=== PATIENT | male | born 1980 | race Native Hawaiian/Other Pacific Islander ===

== ENCOUNTER 2021-07-09 17:46 | Emergency (ER) | payer OTHER ==
[~2021-07-09] VITALS: Ht 167 cm; Wt 72.0 kg
--- NOTE | 2021-07-09 18:44 | ED Neurological Problem ---
General Chief Complaint: Neuro-Stroke Like Symptoms Stated Complaint: ALL OVER BODY PAIN Nursing Triage Note: TO ROOM 04 VIA WC. LANGUAGE LINE USED. PT STATES LAST MON AT WORK WHILE MOVING BOXES HE FELL WHEN HIS LEG BECAME WEAK. COMPLAINS OF LEFT ARM AND LEG WEAKNESS SINCE ALONG WITH PAIN. Source: patient Exam Limitations: no limitations History of Present Illness Date Seen by Provider: Jul 09, 2021 Time Seen by Provider: 18:40 Initial Comments this Lebanese speaking gentleman presents to ER by private vehicle accompanied by his with reports of and leg weakness, pain tingling while at work on 07/07/2021. He is not sure why he fell but his leg felt weak. He states that he cannot bear weight on his left leg because it feels weak. His left hand also feels weak intermittently. The symptoms happened once before while in the [facility] in 2010 but went away on its own. No fevers chills or trauma. The pain began before the fall. Timing/Duration: other (48 hours) Severity: moderate Associated Symptoms: confusion Allergies and Home Medications Allergies Coded Allergies: No Known Drug Allergies (Unverified , 07/09/21) Patient Home Medication List Home Medication List Reviewed: Yes Hydrocodone/Acetaminophen (Hydrocodone-Acetamin 5-325 mg) 1 Each Tablet, 1 TAB PO Q4H PRN for PAIN-MODERATE (5-7) Prescribed by: LESLEE MELO on 07/09/212137 Metformin HCl (Metformin HCl) 500 Mg Tablet, 500 MG PO BID Prescribed by: LESLEE MELO on 07/09/212136 Prednisone (Prednisone) 20 Mg Tab, 40 MG PO DAILY Prescribed by: LESLEE MELO on 07/09/212136 Review of Systems Review of Systems Constitutional: see HPI Eyes: No Symptoms Reported Ears, Nose, Mouth, Throat: no symptoms reported Respiratory: no symptoms reported Cardiovascular: no symptoms reported Genitourinary: no symptoms reported Musculoskeletal: no symptoms reported Skin: no symptoms reported Psychiatric/Neurological: See HPI Endocrine: No Symptoms Reported Past Soifmxm-Rktpfq-Uqutki Hx Patient Social History Smoking Status: Never a Smoker Substance use?: No Alcohol Use?: No Immunizations Up To Date Second COVID19 Vaccination Charly: JUN 06 COVID19 Vaccine Manager Linux: UNKNOWN Physical Exam Vital Signs Vital Signs - First Documented 07/09/21 18:20 Temp 36.3 Pulse 86 Resp 16 B/P (MAP) 165/85 (111) Pulse Ox 99 O2 Delivery Room Air Capillary Refill : Less Than 3 Seconds Height, Weight, BMI Height: '" Weight: lbs. oz. kg; 25.00 BMI Method: General Appearance: WD/WN, no apparent distress, other ([employer] Operator are equal there is questionable left arm pronator drift at best. He does seem quite weak when bearing weight on his left leg. Offevs-ag-myjb test reveals no ataxia but question of receptive aphasia has when I tell him to touch his nose and then my finger he does so appropriately with the right arm and when repeating this with the left arm he puts his 2 pointer fingers together as if he does not understand the question. Lebanese language line was utilized to get history and during clinical exam.) HEENT: PERRL/EOMI, normal ENT inspection Respiratory: no respiratory distress, no accessory muscle use Cardiovascular: regular rate, rhythm, no murmur Gastrointestinal: normal bowel sounds, non tender, soft Extremities: normal range of motion, non-tender Neurologic/Psychiatric: alert, normal mood/affect, oriented x 3 Crainal Nerves: normal hearing, normal speech, PERRL Coordination/Gait: normal finger to nose Motor/Sensory: other (Upper extremity steward/stewardess lounge strength equal bilaterally without drift) Skin: normal color, warm/dry There is no hyperreflexia. He is able to extend the legs while sitting on the edge of the bed with resisted flexion and extension at the knee 5 out of 5 bilaterally. However when he attempts to walk he does have a wide stance with ataxic left leg. Progress/Results/Core Measures Results/Orders Lab Results Laboratory Tests Test 07/09/21 18:38 07/09/21 18:46 07/09/21 20:35 07/09/21 22:20 Range/Units White Blood Count 6.6 4.3-11.0 10^3/uL Red Blood Count 4.12 L 4.30-5.52 10^6/uL Hemoglobin 12.3 L 13.3-17.7 g/dL Hematocrit 36 L 40-54 % Mean Corpuscular Volume 87 80-99 fL Mean Corpuscular Hemoglobin 30 25-34 pg Mean Corpuscular Hemoglobin Concent 34 32-36 g/dL Red Cell Distribution Width 12.3 10.0-14.5 % Platelet Count 160 130-400 10^3/uL Mean Platelet Volume 9.4 9.0-12.2 fL Immature Granulocyte % (Auto) 0 % Neutrophils (%) (Auto) 59 42-75 % Lymphocytes (%) (Auto) 24 12-44 % Monocytes (%) (Auto) 6 0-12 % Eosinophils (%) (Auto) 10 0-10 % Basophils (%) (Auto) 1 0-10 % Neutrophils # (Auto) 3.9 1.8-7.8 10^3/uL Lymphocytes # (Auto) 1.6 1.0-4.0 10^3/uL Monocytes # (Auto) 0.4 0.0-1.0 10^3/uL Eosinophils # (Auto) 0.6 H 0.0-0.3 10^3/uL Basophils # (Auto) 0.0 0.0-0.1 10^3/uL Immature Granulocyte # (Auto) 0.0 0.0-0.1 10^3/uL Prothrombin Time 13.2 12.2-14.7 SEC INR Comment 1.0 0.8-1.4 Activated Partial Thromboplast Time 30 24-35 SEC D-Dimer <= 0.27 0.00-0.49 UG/ML Sodium Level 136 135-145 MMOL/L Potassium Level 3.9 3.6-5.0 MMOL/L Chloride Level 105 98-107 MMOL/L Carbon Dioxide Level 22 21-32 MMOL/L Anion Gap 9 5-14 MMOL/L Blood Urea Nitrogen 26 H 7-18 MG/DL Creatinine 1.13 0.60-1.30 MG/DL Estimat Glomerular Filtration Rate 71 BUN/Creatinine Ratio 23 Glucose Level 334 H 70-105 MG/DL Calcium Level 8.6 8.5-10.1 MG/DL Corrected Calcium 9.5 8.5-10.1 MG/DL Total Bilirubin 0.4 0.1-1.0 MG/DL Aspartate Amino Transf (AST/SGOT) 14 5-34 U/L Alanine Aminotransferase (ALT/SGPT) 21 0-55 U/L Alkaline Phosphatase 73 40-136 U/L Troponin I < 0.028 <0.028 NG/ML Total Protein 6.0 L 6.4-8.2 GM/DL Albumin 2.9 L 3.2-4.5 GM/DL Serum Alcohol < 10 <10 MG/DL Glucometer 291 H 70-110 MG/DL Urine Color YELLOW Urine Clarity CLEAR Urine pH 6.0 5-9 Urine Specific [place] 1.020 1.016-1.022 Urine Protein 2+ H NEGATIVE Urine Glucose (UA) 3+ H NEGATIVE Urine Ketones NEGATIVE NEGATIVE Urine Nitrite NEGATIVE NEGATIVE Urine Bilirubin NEGATIVE NEGATIVE Urine Urobilinogen 0.2 < = 1.0 MG/DL Urine Leukocyte Esterase NEGATIVE NEGATIVE Urine RBC (Auto) 1+ H NEGATIVE Urine RBC 2-5 H /HPF Urine WBC 0-2 /HPF Urine Crystals PRESENT H /LPF Urine Amorphous Sediment RARE KATHIE URATES H /LPF Urine Bacteria TRACE /HPF Urine Casts NONE /LPF Urine Mucus NEGATIVE /LPF Urine Culture Indicated NO Urine Opiates Screen NEGATIVE NEGATIVE Urine Oxycodone Screen NEGATIVE NEGATIVE Urine Methadone Screen NEGATIVE NEGATIVE Urine Propoxyphene Screen NEGATIVE NEGATIVE Urine Barbiturates Screen NEGATIVE NEGATIVE Ur Tricyclic Antidepressants Screen NEGATIVE NEGATIVE Urine Phencyclidine Screen NEGATIVE NEGATIVE Urine Amphetamines Screen NEGATIVE NEGATIVE Urine Methamphetamines Screen NEGATIVE NEGATIVE Urine Benzodiazepines Screen NEGATIVE NEGATIVE Urine Cocaine Screen NEGATIVE NEGATIVE Urine Cannabinoids Screen NEGATIVE NEGATIVE My Orders Orders - LESLEE MELO APRN Cbc With Automated Diff (07/09/21 18:38) Protime With Inr (07/09/21 18:38) Partial Thromboplastin Time (07/09/21 18:38) Comprehensive Metabolic Panel (07/09/21 18:38) Fibrin Degradation Products (07/09/21 18:38) Troponin I Kayleigh (07/09/21 18:38) Ua Culture If Indicated (07/09/21 18:38) Chest 1 View, Ap/Pa Only (07/09/21 18:38) Ekg Tracing (07/09/21 18:38) Accucheck Stat ONCE (07/09/21 18:38) Ed Iv/Invasive Line Start (07/09/21 18:38) Ed Iv/Invasive Line Start (07/09/21 18:38) Vital Signs Stroke Patient Q15M (07/09/21 18:38) O2 (07/09/21 18:38) Intake & Output 06,14,22 (07/09/21 18:38) Monitor-Rhythm Ecg Trace Only (07/09/21 18:38) Dysphagia Screening Tool (07/09/21 18:38) Post Thrombolytic Adminstratio (07/09/21 18:38) Lipid Panel (07/10/21 06:00) Ct Angio Head/Neck (07/09/21 18:38) Drug Screen Stat (Urine) (07/09/21 18:38) Alcohol (07/09/21 18:38) Iohexol Injection (Omnipaque 350 Mg/Ml 1 (07/09/21 19:15) Received Contrast (Hold Metformin- Contr (07/09/21 19:15) Ns (Ivpb) (Sodium Chloride 0.9% Ivpb Bag (07/09/21 19:15) Ketorolac Injection (Toradol Injection) (07/09/21 20:00) Pelvis With Left Hip 2-3 Views (07/09/21 19:58) Lumbar Spine - 2-3 Views (07/09/21 19:58) Rx-Hydrocodone/Apap 5-325 Mg (Rx-Vicodin (07/09/21 21:15) Fentanyl Inj (Sublimaze Injection) (07/09/21 21:15) Ct Lumbar Spine Wo (07/09/21 21:11) Covid 19 Inhouse Test (07/09/21 22:18) Medications Given in ED Current Medications Medications Dose Ordered Sig/Gardenia Route Start Time Stop Time Status Last Admin Dose Admin Fentanyl Citrate 50 mcg ONCE ONCE IVP 07/09/21 21:15 07/09/21 21:16 DC 07/09/21 21:17 50 MCG Iohexol 100 ml ONCE ONCE IV 07/09/21 19:15 07/09/21 19:16 DC 07/09/21 19:27 75 ML Ketorolac Tromethamine 15 mg ONCE ONCE IVP 07/09/21 20:00 07/09/21 20:01 DC 07/09/21 20:26 15 MG Sodium Chloride 100 ml ONCE ONCE IV 07/09/21 19:15 07/09/21 19:16 DC 07/09/21 19:27 80 ML Vital Signs/I&O 07/09/21 18:20 Temp 36.3 Pulse 86 Resp 16 B/P (MAP) 165/85 (111) Pulse Ox 99 O2 Delivery Room Air Blood Pressure Mean: 111 Departure Communication (Admissions) 2111-after further discussion using the language line it seems that his low back may be the cause of this leg pain. He states this began on Monday and the pain preceded the weakness. He has a strong dorsalis pedis pulse on the left. The leg is warm. Flexion of the leg makes the pain worse. Will get a CT lumbar s pine and treat for lumbar radiculopathy. Sometimes the pain radiates to his abdomen. Twisting makes the pain worse. 2147-I discussed the CT findings with him of severe spinal stenosis. He does report that sometimes he has numbness between his legs of the genitals. His bladder looks very distended on CT and he has a mild urge to urinate. We will have him urinate and then get a post void residual. I think he needs to be sent to [place] since MRIs not available here to evaluate for a cauda equina syndrome. He voided 325 mL and then we did a post void bladder scan showing a residual 300 mL. I spoke with [facility] transfer center and [facility]. They can take the patient to ER to complete the MRI but if it is positive and need for surgical intervention they would not be able to help and would have to again transfer the patient. As such I spoke with [facility] and there is a facility at [facility] available. Waiting for hospitalist to call me back. 2257-spoke to Dr. Limon from the transfer line at [facility] on the [place]. Accepts the patient for transfer to the ER. Family Conversation NAME: JAMES ROMERO [facility] REC#: [id number] PT STATUS: REG ER : 1980 PHYSICIAN: LESLEE MELO APRN ADMIT DATE: 07/09/21/ER Draft Date of Exam:07/09/21 CT ANGIO HEAD/NECK PROCEDURE: CT angiography of the head and CT angiography of the neck with and without contrast. TECHNIQUE: Contiguous noncontrast images were obtained from the skull base through the vertex. After intravenous contrast administration, helical CT angiography of the neck was performed. Source data was reformatted into 3D MIP projections. Delayed post contrast acquisition was also obtained. Auto Exposure Controls were utilized during the CT exam to meet ALARA standards for radiation dose reduction. DATE: July 09, 2021. INDICATION: 40-year-old male, left leg and arm weakness. Evaluation for stroke. COMPARISON: None. FINDINGS: There is increased attenuation in the region of the left parietal scalp which may reflect soft tissue contusion or hematoma. Recommend correlation. There is no identified skull fracture. The frontal sinuses are hypoplastic. The additional visualized portions of the paranasal sinuses, mastoid air cells and middle ears are well aerated. The ventricles and additional CSF spaces are normal in size and configuration for patient age. There is no identified abnormal extra-axial fluid collection. There is no evidence of acute intracranial hemorrhage. There is no mass effect or midline shift. There is no identified abnormal intracranial enhancement. The left common carotid artery is patent. The left internal carotid artery is patent. There is calcified plaque at the level of the cavernous segment of the left internal carotid artery. The left middle cerebral artery is patent. The left anterior cerebral artery is patent. The right anterior cerebral artery is patent. The right middle cerebral artery is patent. The right internal carotid artery is patent. There is minimal calcified plaque at the level of the proximal aspect of the right internal carotid artery. The right common carotid artery is patent. There is conventional origin of the left vertebral artery. The left vertebral artery is patent. The right and left posterior inferior cerebellar arteries are patent. The right and left posterior cerebral arteries are patent. The right vertebral artery is patent and conventional in origin. Visualized portions of the lungs are clear. There is no identified acute bony abnormality. IMPRESSION: 1. No identified acute intracranial abnormality. 2. Patent arterial head and neck vasculature without high-grade stenosis, occlusion, aneurysm or dissection. 3. Mild atherosclerotic disease is noted. Dictated on workstation # [id number] Dict: 07/09/211941 Trans: 07/09/211952 [facility] [id number] Interpreted by: JEFFREY HERMOSILLO MD Electronically signed by: NAME: JAMES ROMERO REC#: [id number] PT STATUS: REG ER : 1980 PHYSICIAN: LESLEE MELO APRN ADMIT DATE: 07/09/21/ER Signed Date of Exam:07/09/21 CHEST 1 VIEW, AP/PA ONLY EXAMINATION: Chest radiograph, portable AP view. DATE: 07/09/2021 7:55 PM. INDICATION: 40-year-old male, left-sided weakness. COMPARISON: None. FINDINGS: Heart size and mediastinal contours are unremarkable. There is no identified pneumothorax. There is no large pleural effusion. There is no identified focal airspace consolidation. IMPRESSION: No identified acute cardiopulmonary abnormality. Dictated by: Dictated on workstation # [id number] Dict: 07/09/211955 Trans: 07/09/212002 [facility] [id number] Interpreted by: JEFFREY HERMOSILLO MD Electronically signed by: JEFFREY HERMOSILLO MD 07/09/212002 NAME: [facility] [facility] REC#: [id number] PT STATUS: REG ER : 1980 PHYSICIAN: LESLEE MELO APRN ADMIT DATE: 07/09/21/ER Signed Date of Exam:07/09/21 PELVIS WITH LEFT HIP 2-3 VIEWS EXAMINATION: Pelvis, single view. Left hip, 2 views. COMPARISON: None. HISTORY: 40-year-old male, leg weakness. FINDINGS: The pubic symphysis and sacroiliac joints are normally aligned. The hips are not obviously dislocated. There is lack of normal concavity of both femoral head neck junctions which is a morphologic feature which can be associated with cam-type femoral acetabular impingement which would be a clinical diagnosis. There is no identified acute fracture. The joint spaces of both hips are well preserved. There is no osteophyte formation or subchondral cystic change. IMPRESSION: 1. No acute bony abnormality of the pelvis or left hip. 2. Lack of normal concavity of both femoral head neck junctions which is a morphologic feature which can be associated with cam-type femoral acetabular impingement which would be a clinical diagnosis. No evidence of arthritis of either hip. Dictated by: Dictated on workstation # [id number] Dict: 07/09/212022 Trans: 07/09/212034 [facility] [id number] Interpreted by: JEFFREY HERMOSILLO MD Electronically signed by: JEFFREY HERMOSILLO MD 07/09/212034 NAME: [facility] REC#: [id number] PT STATUS: REG ER : 1980 PHYSICIAN: LESLEE MELO APRN ADMIT DATE: 07/09/21/ER Draft Date of Exam:07/09/21 CT LUMBAR SPINE WO PROCEDURE: CT lumbar spine without contrast. TECHNIQUE: Multiple contiguous axial images were obtained through the lumbar spine without the use of intravenous contrast. Sagittal and coronal reformations were then performed. Auto Exposure Controls were utilized during the CT exam to meet ALARA standards for radiation dose reduction. DATE: July 09, 2021. INDICATION: 40-year-old male, left leg weakness and pain. COMPARISON: Lumbar spine radiographs July 09, 2021. FINDINGS: There are multilevel mild endplate degenerative changes of the thoracolumbar spine with relatively well preserved disc heights. CT is limited for assessment of disc pathology as well as additional non-bony causes of pathology in the spinal canal. There is a large diffuse disc bulge present at L3-L4. The facet joints are unremarkable. There appears to be severe spinal stenosis and moderate to severe bilateral foraminal narrowing. There is also a large diffuse disc bulge at L4-L5 with suspected severe spinal stenosis and moderate to severe bilateral foraminal narrowing. There is no identified acute fracture of the lumbar spine. There is contrast in the urinary collecting systems relating to prior administration of contrast. IMPRESSION: 1. Large diffuse disc bulges at L3-L4 and L4-L5 with suspected severe spinal stenosis and moderate to severe bilateral foraminal narrowing at both levels. 2. No identified acute fracture of the lumbar spine. Dictated on workstation # [id number] Dict: 07/09/212131 Trans: 07/09/212135 [facility] [id number] Interpreted by: JEFFREY HERMOSILLO MD Electronically signed by: His EKG shows sinus rhythm at 71. He denies chest pain, there is some ST elevation in lead II but no other leads and no reciprocal depression. Impression Primary Impression: Cauda equina syndrome Additional Impression: Diabetes Disposition: XFER SHT-TRM HOSP Condition: Stable Transfer Transfer Reason: Exceeds level of care Time Spoke to Accepting Phy: 21:49 Departure-Patient Inst. Decision time for Depature: 21:13 Referrals: GRIFFIN AVALOS BRIAN J MD NO,LOCAL PHYSICIAN (PCP) Primary Care Physician Patient Instructions: Radiculopathy Scripts Hydrocodone/Acetaminophen (Hydrocodone-Acetamin 5-325 mg) 1 Each Tablet 1 TAB PO Q4H PRN for PAIN-MODERATE (5-7), #10 TAB Prov: LESLEE MELO APRN 07/09/21 Prednisone (Prednisone) 20 Mg Tab 40 MG PO DAILY, #6 TAB 0 Refills Prov: LESLEE MELO APRN 07/09/21 Metformin HCl (Metformin HCl) 500 Mg Tablet 500 MG PO BID, #60 TAB Prov: LESLEE MELO APRN 07/09/21 Work/School Note: Work Release Form Date Seen in the Emergency Department: Jul 09, 2021 Return to Work: Jul 12, 2021 LESLEE MELO APRN Jul 09, 2021 18:44
[2021-07-09 18:45] LABS: BASOPHILS % (AUTO) 1 % (0-10); EOSINOPHILS # (AUTO) 0.6 10^3/uL (0.0-0.3); EOSINOPHILS % (AUTO) 10 % (0-10); HEMATOCRIT 36 % (40-54); HEMOGLOBIN 12.3 g/dL (13.3-17.7); LYMPHOCYTES # (AUTO) 1.6 10^3/uL (1.0-4.0); LYMPHOCYTES % (AUTO) 24 % (12-44); MEAN CORPUSCULAR HEMOGLOBIN 30 pg (25-34); MEAN CORPUSCULAR HGB CONC 34 g/dL (32-36); MEAN CORPUSCULAR VOLUME 87 fL (80-99); MEAN PLATELET VOLUME 9.4 fL (9.0-12.2); MONOCYTES # (AUTO) 0.4 10^3/uL (0.0-1.0); MONOCYTES % (AUTO) 6 % (0-12); NEUTROPHILS # (AUTO) 3.9 10^3/uL (1.8-7.8); NEUTROPHILS % (AUTO) 59 % (42-75); PLATELET COUNT 160 10^3/uL (130-400); WHITE BLOOD COUNT 6.6 10^3/uL (4.3-11.0)
[2021-07-09 19:01] LABS: FIBRIN DEGRADATION PRODUCTS <= 0.27 UG/ML (0.00-0.49); PARTIAL THROMBOPLASTIN TIME 30 SEC (24-35); PROTHROMBIN TIME PATIENT 13.2 SEC (12.2-14.7)
[2021-07-09 19:04] LABS: ALANINE AMINOTRANSFERASE 21 U/L (0-55); ALBUMIN 2.9 GM/DL (3.2-4.5); ALKALINE PHOSPHATASE 73 U/L (40-136); BILIRUBIN,TOTAL 0.4 MG/DL (0.1-1.0); BUN/CREATININE RATIO 23; CALCIUM 8.6 MG/DL (8.5-10.1); CARBON DIOXIDE 22 MMOL/L (21-32); CHLORIDE 105 MMOL/L (98-107); CREATININE SERUM 1.13 MG/DL (0.60-1.30); GFR ESTIMATED 71; GLUCOSE 334 MG/DL (70-105); POTASSIUM 3.9 MMOL/L (3.6-5.0); SODIUM 136 MMOL/L (135-145)
[2021-07-09] MEDS ORDERED: IOHEXOL 350 MG/ML 100 ML (OMNIPAQUE 350) VIAL IV ONE (19:15)
[2021-07-09] MEDS ORDERED: HOLD METFORMIN - RECEIVED CONTRAST 20 ML VIAL IV SCH (19:15)
[2021-07-09] MEDS ORDERED: NS 100 ML (IVPB) BAG IV ONE (19:15)
--- NOTE | 2021-07-09 19:55 | Diagnostic Imaging Report ---
PROCEDURE: CT angiography of the head and CT angiography of the neck with and without contrast. TECHNIQUE: Contiguous noncontrast images were obtained from the skull base through the vertex. After intravenous contrast administration, helical CT angiography of the neck was performed. Source data was reformatted into 3D MIP projections. Delayed post contrast acquisition was also obtained. Auto Exposure Controls were utilized during the CT exam to meet ALARA standards for radiation dose reduction. DATE: July 09, 2021. INDICATION: 40-year-old male, left leg and arm weakness. Evaluation for stroke. COMPARISON: None. FINDINGS: There is increased attenuation in the region of the left parietal scalp which may reflect soft tissue contusion or hematoma. Recommend correlation. There is no identified skull fracture. The frontal sinuses are hypoplastic. The additional visualized portions of the paranasal sinuses, mastoid air cells and middle ears are well aerated. The ventricles and additional CSF spaces are normal in size and configuration for patient age. There is no identified abnormal extra-axial fluid collection. There is no evidence of acute intracranial hemorrhage. There is no mass effect or midline shift. There is no identified abnormal intracranial enhancement. The left common carotid artery is patent. The left internal carotid artery is patent. There is calcified plaque at the level of the cavernous segment of the left internal carotid artery. The left middle cerebral artery is patent. The left anterior cerebral artery is patent. The right anterior cerebral artery is patent. The right middle cerebral artery is patent. The right internal carotid artery is patent. There is minimal calcified plaque at the level of the proximal aspect of the right internal carotid artery. The right common carotid artery is patent. There is conventional origin of the left vertebral artery. The left vertebral artery is patent. The right and left posterior inferior cerebellar arteries are patent. The right and left posterior cerebral arteries are patent. The right vertebral artery is patent and conventional in origin. Visualized portions of the lungs are clear. There is no identified acute bony abnormality. IMPRESSION: 1. No identified acute intracranial abnormality. 2. Patent arterial head and neck vasculature without high-grade stenosis, occlusion, aneurysm or dissection. 3. Mild atherosclerotic disease is noted. 4. High attenuation in the region of the left parietal scalp most likely reflecting soft tissue contusion or hematoma. Recommend correlation. Dictated by: Dictated on workstation # [id number]
--- NOTE | 2021-07-09 19:59 | Diagnostic Imaging Report ---
EXAMINATION: Chest radiograph, portable AP view. DATE: 07/09/2021 7:55 PM. INDICATION: 40-year-old male, left-sided weakness. COMPARISON: None. FINDINGS: Heart size and mediastinal contours are unremarkable. There is no identified pneumothorax. There is no large pleural effusion. There is no identified focal airspace consolidation. IMPRESSION: No identified acute cardiopulmonary abnormality. Dictated by: Dictated on workstation # [id number]
[2021-07-09] MEDS ORDERED: KETOROLAC 30 MG/ML VIAL IVP ONE (20:00)
--- NOTE | 2021-07-09 20:27 | Diagnostic Imaging Report ---
EXAMINATION: Pelvis, single view. Left hip, 2 views. COMPARISON: None. HISTORY: 40-year-old male, leg weakness. FINDINGS: The pubic symphysis and sacroiliac joints are normally aligned. The hips are not obviously dislocated. There is lack of normal concavity of both femoral head neck junctions which is a morphologic feature which can be associated with cam-type femoral acetabular impingement which would be a clinical diagnosis. There is no identified acute fracture. The joint spaces of both hips are well preserved. There is no osteophyte formation or subchondral cystic change. IMPRESSION: 1. No acute bony abnormality of the pelvis or left hip. 2. Lack of normal concavity of both femoral head neck junctions which is a morphologic feature which can be associated with cam-type femoral acetabular impingement which would be a clinical diagnosis. No evidence of arthritis of either hip. Dictated by: Dictated on workstation # [id number]
--- NOTE | 2021-07-09 20:27 | Diagnostic Imaging Report ---
EXAMINATION: Lumbar spine radiographs, 3 views. COMPARISON: None. HISTORY: 40-year-old male, leg weakness. FINDINGS: There are five lumbar-type vertebral bodies. There is no identified compression deformity or fracture. There are multilevel endplate degenerative related changes. The disc heights are fairly well preserved. The facet joints are unremarkable. There is contrast in the urinary collecting systems likely relating to prior administration of contrast. IMPRESSION: Multilevel mild disc degenerative changes of the lumbar spine. Dictated by: Dictated on workstation # [id number]
[2021-07-09 20:37] LABS: BILIRUBIN,URINE NEGATIVE (NEGATIVE); CLARITY,URINE CLEAR; COLOR,URINE YELLOW; GLUCOSE, URINE (UA) 3+ (NEGATIVE); KETONES,URINE NEGATIVE (NEGATIVE); LEUKOCYTE ESTERASE ,URINE NEGATIVE (NEGATIVE); NITRITE,URINE NEGATIVE (NEGATIVE); PROTEIN,URINE 2+ (NEGATIVE)
[2021-07-09 20:45] LABS: AMORPHOUS SEDIMENT,UR RARE AMOR URATES /LPF; BACTERIA,URINE TRACE /HPF; WBC,URINE 0-2 /HPF
[2021-07-09 20:55] LABS: AMPHETAMINE SCREEN, URINE NEGATIVE (NEGATIVE); BARBITURATE SCREEN URINE NEGATIVE (NEGATIVE); BENZODIAZEPINES SCREEN URINE NEGATIVE (NEGATIVE); CANNABINOID SCREEN, URINE NEGATIVE (NEGATIVE); COCAINE SCREEN URINE NEGATIVE (NEGATIVE); METHADONE STAT NEGATIVE (NEGATIVE); METHAMPHETAMINE SCREEN URINE S NEGATIVE (NEGATIVE); OPIATE SCREEN URINE NEGATIVE (NEGATIVE); OXYCODONE STAT NEGATIVE (NEGATIVE); PROPOXYPHENE STAT NEGATIVE (NEGATIVE); TRICYCLIC ANTIDEPRESSANTS SCRE NEGATIVE (NEGATIVE)
[2021-07-09] MEDS ORDERED: fentaNYL INJ 100 MCG/2 ML AMP IVP ONE (21:15)
--- NOTE | 2021-07-09 21:36 | Diagnostic Imaging Report ---
PROCEDURE: CT lumbar spine without contrast. TECHNIQUE: Multiple contiguous axial images were obtained through the lumbar spine without the use of intravenous contrast. Sagittal and coronal reformations were then performed. Auto Exposure Controls were utilized during the CT exam to meet ALARA standards for radiation dose reduction. DATE: July 09, 2021. INDICATION: 40-year-old male, left leg weakness and pain. COMPARISON: Lumbar spine radiographs July 09, 2021. FINDINGS: There are multilevel mild endplate degenerative changes of the thoracolumbar spine with relatively well preserved disc heights. CT is limited for assessment of disc pathology as well as additional non-bony causes of pathology in the spinal canal. There is a large diffuse disc bulge present at L3-L4. The facet joints are unremarkable. There appears to be severe spinal stenosis and moderate to severe bilateral foraminal narrowing. There is also a large diffuse disc bulge at L4-L5 with suspected severe spinal stenosis and moderate to severe bilateral foraminal narrowing. There is no identified acute fracture of the lumbar spine. There is contrast in the urinary collecting systems relating to prior administration of contrast. IMPRESSION: 1. Large diffuse disc bulges at L3-L4 and L4-L5 with suspected severe spinal stenosis and moderate to severe bilateral foraminal narrowing at both levels. 2. No identified acute fracture of the lumbar spine. Dictated by: Dictated on workstation # [id number]
[2021-07-09] MEDS ORDERED: ACHD5005 PO (21:37)
[2021-07-09] MEDS ORDERED: METF-397 PO (21:37)
[2021-07-09] MEDS ORDERED: PRD20T PO (21:37)
[2021-07-10 00:25] VITALS: BP 173/90
== END 2021-07-10 00:25 | disposition short-term general hospital (02) ==
LOC: ER 17:53
DX: G83.4 Cauda equina syndrome (principal); E11.9 Type 2 diabetes mellitus without complications; Z79.84 Long term (current) use of oral hypoglycemic drugs; Z20.822 Contact with and (suspected) exposure to COVID-19
CPT/HCPCS: 70496; 70498; 71045; 72100; 72131; 73502; 80053; 80306; 81000; 82947; 84484; 85025; 85379; 85610; 85730; 87636; 99284; G0480; 36415; 80320; 93005

== ENCOUNTER 2021-08-27 12:02 | Observation (INO) | payer SELFPAY ==
[~2021-08-27] VITALS: Ht 170.2 cm; Wt 79.0 kg
[~2021-08-27 12:02] MED LIST: ACHD5005 PO; METF-397 PO; PRD20T PO
[2021-08-27 12:37] LABS: BASOPHILS # (AUTO) 0.1 10^3/uL (0.0-0.1); BASOPHILS % (AUTO) 1 % (0-10); EOSINOPHILS # (AUTO) 0.9 10^3/uL (0.0-0.3); EOSINOPHILS % (AUTO) 10 % (0-10); HEMATOCRIT 36 % (40-54); HEMOGLOBIN 12.7 g/dL (13.3-17.7); LYMPHOCYTES # (AUTO) 1.8 10^3/uL (1.0-4.0); LYMPHOCYTES % (AUTO) 21 % (12-44); MEAN CORPUSCULAR HEMOGLOBIN 30 pg (25-34); MEAN CORPUSCULAR HGB CONC 35 g/dL (32-36); MEAN CORPUSCULAR VOLUME 84 fL (80-99); MEAN PLATELET VOLUME 9.8 fL (9.0-12.2); MONOCYTES # (AUTO) 0.4 10^3/uL (0.0-1.0); MONOCYTES % (AUTO) 4 % (0-12); NEUTROPHILS # (AUTO) 5.7 10^3/uL (1.8-7.8); NEUTROPHILS % (AUTO) 64 % (42-75); PLATELET COUNT 178 10^3/uL (130-400); WHITE BLOOD COUNT 8.8 10^3/uL (4.3-11.0)
[2021-08-27 12:51] LABS: ALBUMIN 3.1 GM/DL (3.2-4.5)
[2021-08-27 12:52] LABS: CHLORIDE 100 MMOL/L (98-107); SODIUM 134 MMOL/L (135-145)
[2021-08-27 12:53] LABS: CALCIUM 8.7 MG/DL (8.5-10.1)
[2021-08-27 12:54] LABS: GLUCOSE 389 MG/DL (70-105); TOTAL PROTEIN 6.5 GM/DL (6.4-8.2)
[2021-08-27 12:55] LABS: CARBON DIOXIDE 25 MMOL/L (21-32)
[2021-08-27 12:56] LABS: BILIRUBIN,TOTAL 0.4 MG/DL (0.1-1.0)
[2021-08-27 12:57] LABS: ALKALINE PHOSPHATASE 92 U/L (40-136); CREATININE SERUM 1.55 MG/DL (0.60-1.30); GFR ESTIMATED 57
[2021-08-27 12:58] LABS: BUN/CREATININE RATIO 13
--- NOTE | 2021-08-27 12:58 | ED Neurological Problem ---
General Stated Complaint: RIB PAIN Source: patient, EMS Exam Limitations: language barrier ([place] park interpreter on the language line used) History of Present Illness Date Seen by Provider: Aug 27, 2021 Time Seen by Provider: 12:16 Initial Comments Patient to the ER by EMS from home with chief complaint that about 1:00 in the morning had a fall landing on his left side bumped the left side of his head and having pain now in his left hip and knee. Is also having numbness and tingling and weakness on the left side of his arm elbow and hip. No prior surgeries to the joints involved. 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 He uses a walker to get around. He has hypertension and diabetes. Blood glucose was in the 300s. He said he was unable to bear any weight and the family try to get him up but he refused so he laid in the floor all night. EMS stated when they got him up he was not able to bear any weight. No nausea vomiting fevers chills cough shortness of air diarrhea or constipation. He has a history of high-grade spinal stenosis. Worked up in the past for cauda equina syndrome and transferred out. Allergies and Home Medications Allergies Coded Allergies: No Known Drug Allergies (Unverified , 07/09/21) Patient Home Medication List Home Medication List Reviewed: Yes Hydrocodone/Acetaminophen (Hydrocodone-Acetamin 5-325 mg) 1 Each Tablet, 1 TAB PO Q4H PRN for PAIN-MODERATE (5-7) Prescribed by: LESLEE MELO on 07/09/212137 Metformin HCl (Metformin HCl) 500 Mg Tablet, 500 MG PO BID Prescribed by: LESLEE MELO on 07/09/212136 Prednisone (Prednisone) 20 Mg Tab, 40 MG PO DAILY Prescribed by: LESLEE MELO on 07/09/212136 Review of Systems Review of Systems Constitutional: No chills, No diaphoresis Eyes: Denies Blindness, Denies Blurred Vision Ears, Nose, Mouth, Throat: denies ear pain, denies ear discharge Respiratory: No cough, No short of breath Cardiovascular: No edema, No palpitations Gastrointestinal: No abdominal pain, No constipation, No diarrhea, No dysphagia Genitourinary: No discharge, No dysuria Musculoskeletal: see HPI, back pain, joint pain Past Sgoyjyy-Fenoaa-Jrviap Hx Patient Social History Tobacco Use?: No Use of E-Cig and/or Vaping dev: No Substance use?: No Alcohol Use?: No Immunizations Up To Date Second COVID19 Vaccination Charly: JUN 06 Physical Exam Vital Signs Vital Signs - First Documented 08/27/21 12:09 Temp 36.0 Pulse 67 Resp 20 B/P (MAP) 122/76 (91) Pulse Ox 99 O2 Delivery Room Air Capillary Refill : Height, Weight, BMI Height: '" Weight: lbs. oz. 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, alert, normal mood/affect, oriented x 3, other (Paresthesias left upper and lower extremity with weakness as described on the stroke NIH, left side lower extremity) Crainal Nerves: normal hearing, normal speech, PERRL Coordination/Gait: normal finger to nose Motor/Sensory: no sensory deficit, pronator drift (L) (Lower extremity), weak motor strength LLE Skin: normal color, warm/dry Stroke Onset of Symptoms Date of Onset of Symptoms: Aug 27, 2021 Time of Symptom Onset: 01:00 Onset of Symptoms: Yes NIH Stroke Scale Assessment Select: Initial Level of Consciousness: 0=Alert (0), Level of Consciousness- Questions: 0=Answers both month/age (0), LOC Commands: 0=Performs both tasks (0), Gaze: Normal (0), Visual [place]on: 0=No visual loss (0), Facial Movement (Facial Paresis): 0=Normal symmetrical mnt (0), Motor Function-Arms Right: 0=No drift (0), Motor Function-Arms Left: 0=No drift (0), Motor Function-Legs Right: 1=Drift (1), Motor Function-Legs Left: 2=Some effort/gravity (2), Limb Ataxia: 0=Absent (0), Sensory: 0=Normal:no loss (0), Best Language: 0=No aphasia (0), Dysarthria: 0=Normal (0), Extinction & Inattention: 0=No abnormality (0), Total: 3 Stroke Thrombolytic Exclusion Age 18 or Over: Yes Acute intenal hemorrhage: No History of CVA: Yes Uncontrolled Coagulation Defec: No Intracranial Hemorrhage: No Severe Hypertension: No GI or Bleed: No Subarachnoid Hemorrhage: No Intracranial Neoplasm/Aneurysm: No Oral Anticoagulants: No Surgery or Trauma: No Puncture of Non-Compressible V: No Recent CPR: No Diabetic Hemorrhagic Retinopat: No Organ Biopsy: No Recent Obstetric Delivery: No Glucose: No (300s) Significant Hepatic Dysfunctio: No NIH Stoke Scale >22: No Bacterial Endocarditis: No Pericarditis: No Improving Symptoms: No Platelets: No TPA Contraindication: No IV - TPa Received IV - TPa Procedure Performed?: No (Outside the window and benefits do not outweigh the risks.) Progress/Results/Core Measures Results/Orders Lab Results Laboratory Tests Test 08/27/21 12:22 08/27/21 12:30 08/27/21 15:31 Range/Units Glucometer 367 H 304 H 70-110 MG/DL White Blood Count 8.8 4.3-11.0 10^3/uL Red Blood Count 4.29 L 4.30-5.52 10^6/uL Hemoglobin 12.7 L 13.3-17.7 g/dL Hematocrit 36 L 40-54 % Mean Corpuscular Volume 84 80-99 fL Mean Corpuscular Hemoglobin 30 25-34 pg Mean Corpuscular Hemoglobin Concent 35 32-36 g/dL Red Cell Distribution Width 11.9 10.0-14.5 % Platelet Count 178 130-400 10^3/uL Mean Platelet Volume 9.8 9.0-12.2 fL Immature Granulocyte % (Auto) 1 % Neutrophils (%) (Auto) 64 42-75 % Lymphocytes (%) (Auto) 21 12-44 % Monocytes (%) (Auto) 4 0-12 % Eosinophils (%) (Auto) 10 0-10 % Basophils (%) (Auto) 1 0-10 % Neutrophils # (Auto) 5.7 1.8-7.8 10^3/uL Lymphocytes # (Auto) 1.8 1.0-4.0 10^3/uL Monocytes # (Auto) 0.4 0.0-1.0 10^3/uL Eosinophils # (Auto) 0.9 H 0.0-0.3 10^3/uL Basophils # (Auto) 0.1 0.0-0.1 10^3/uL Immature Granulocyte # (Auto) 0.0 0.0-0.1 10^3/uL Prothrombin Time 12.7 12.2-14.7 SEC INR Comment 0.9 0.8-1.4 Activated Partial Thromboplast Time 30 24-35 SEC D-Dimer <= 0.27 0.00-0.49 UG/ML Sodium Level 134 L 135-145 MMOL/L Potassium Level 4.0 3.6-5.0 MMOL/L Chloride Level 100 98-107 MMOL/L Carbon Dioxide Level 25 21-32 MMOL/L Anion Gap 9 5-14 MMOL/L Blood Urea Nitrogen 20 H 7-18 MG/DL Creatinine 1.55 H 0.60-1.30 MG/DL Estimat Glomerular Filtration Rate 57 BUN/Creatinine Ratio 13 Glucose Level 389 H 70-105 MG/DL Calcium Level 8.7 8.5-10.1 MG/DL Corrected Calcium 9.4 8.5-10.1 MG/DL Total Bilirubin 0.4 0.1-1.0 MG/DL Aspartate Amino Transf (AST/SGOT) 14 5-34 U/L Alanine Aminotransferase (ALT/SGPT) 16 0-55 U/L Alkaline Phosphatase 92 40-136 U/L Total Creatine Kinase 140 30-200 U/L Troponin I < 0.028 <0.028 NG/ML Total Protein 6.5 6.4-8.2 GM/DL Albumin 3.1 L 3.2-4.5 GM/DL My Orders Orders - AMARILIS HAAS Cbc With Automated Diff (08/27/21 12:24) Protime With Inr (08/27/21 12:24) Partial Thromboplastin Time (08/27/21 12:24) Comprehensive Metabolic Panel (08/27/21 12:24) Fibrin Degradation Products (08/27/21 12:24) Troponin I Kayleigh (08/27/21 12:24) Ua Culture If Indicated (08/27/21 12:24) Catheter(Urinary) Insert & Ass 03,15 (08/27/21 12:24) Ekg Tracing (08/27/21 12:24) Nothing By Mouth (08/27/21 Lunch) Accucheck Stat ONCE (08/27/21 12:24) Ed Iv/Invasive Line Start (08/27/21 12:24) Ed Iv/Invasive Line Start (08/27/21 12:24) Vital Signs Stroke Patient Q15M (08/27/21 12:24) Ct Head Wo-R/O Stroke (08/27/21 12:24) O2 (08/27/21 12:24) Intake & Output 06,14,22 (08/27/21 12:24) Monitor-Rhythm Ecg Trace Only (08/27/21 12:24) Dysphagia Screening Tool (08/27/21 12:24) Lipid Panel (08/28/21 06:00) Insulin (Regular) Human (Novolin R (Per (08/27/21 13:00) Creatine Kinase (08/27/21 13:06) Iohexol Injection (Omnipaque 350 Mg/Ml 1 (08/27/21 13:15) Received Contrast (Hold Metformin- Contr (08/27/21 13:15) Ns (Ivpb) (Sodium Chloride 0.9% Ivpb Bag (08/27/21 13:15) Mri Brain W/O Contrast (08/27/21 13:54) Mri Cervical Spine W/O Contras (08/27/21 13:54) Ed Admission (Communication) (08/27/21 14:07) Accucheck Stat ONCE (08/27/21 15:23) Medications Given in ED Current Medications Medications Dose Ordered Sig/Gardenia Route Start Time Stop Time Status Last Admin Dose Admin Insulin Human Regular 10 unit ONCE ONCE SC 08/27/21 13:00 08/27/21 13:01 DC 08/27/21 13:19 10 UNIT Vital Signs/I&O 08/27/21 12:09 Temp 36.0 Pulse 67 Resp 20 B/P (MAP) 122/76 (91) Pulse Ox 99 O2 Delivery Room Air Progress Progress Note : Time: 13:16 Progress Note Trauma Vs Ischemic accident. Initial CT shows no bleed. 10 units of regular insulin for hyperglycemia. Vital signs are stable. NIH of 3 points. The right weakness is chronic. He was worked up recently for potential cauda equina syndr ome with significant right lower extremity weakness. The only new findings would be the 2 points for drift in his left leg. Initial ECG Impression Date: Aug 27, 2021 Initial ECG Impression Time: 12:57 Initial ECG Rate: 65 Initial ECG Rhythm: Normal Sinus Initial ECG Intervals: Normal Initial ECG Impression: Normal Initial ECG Comparisson: Unchanged Comment NSR no st elev Diagnostic Imaging Diagonstic Imaging: Xray Plain Films/CT/US/NM/MRI: elbow (l) Comments [facility] [place] NAME: JAMESRetention EducationCHI [facility] [id number] PT STATUS: REG ER : 1980 PHYSICIAN: LESLEE MELO APRN ADMIT DATE: 08/27/21/ER Draft Date of Exam:08/27/21 ELBOW, LEFT, 3 VIEWS Indication: Left elbow pain. TIME OF EXAM: 12:44 PM 3 views of the left elbow were obtained. Alignment is normal. No definite fracture is identified. There is no dislocation or effusion. IMPRESSION: No acute bony abnormality is detected. Dictated on workstation # [id number] Dict: 08/27/21 1302 Trans: 08/27/21 [facility]3 [place] [id number] Interpreted by: JOSE STOKES MD Electronically signed by: Reviewed: Reviewed by Me Diagonstic Imaging: Xray Plain Films/CT/US/NM/MRI: hip (l) Comments [facility] [place] NAME: [facility] REC[facility] [id number] PT STATUS: REG ER : 1980 PHYSICIAN: LESLEE MELO APRN ADMIT DATE: 08/27/21/ER Signed Date of Exam:08/27/21 HIP, LEFT, 2 VIEWS CLINICAL HISTORY: Fall. Left hip pain. COMPARISON: 07/09/2021. TECHNIQUE: 2 views of the left hip. FINDINGS: There is no acute fracture or dislocation of the left hip. Alignment is anatomic. The imaged joint spaces are preserved. Vascular calcifications are seen in the included left lower extremity. IMPRESSION: 1. No acute fracture or dislocation in the left hip. Dictated by: Dictated on workstation # [id number] Dict: 08/27/21 1301 Trans: 08/27/21 [facility] [phone] Interpreted by: RYAN RAMOS DO Electronically signed by: RYAN RAMOS DO 08/27/211307 Reviewed: Reviewed by Me Diagonstic Imaging: Xray Plain Films/CT/US/NM/MRI: knee (l) Comments [facility] [place] NAME: JAMES#[employer] MED REC#: [id number] PT STATUS: REG ER : 1980 PHYSICIAN: LESLEE MELO APRN ADMIT DATE: 08/27/21/ER Signed Date of Exam:08/27/21 KNEE, LEFT, 3 VIEWS CLINICAL HISTORY: Fall. Left knee pain. COMPARISON: None. TECHNIQUE: 3 views of the left knee. FINDINGS: There is no acute fracture or dislocation of the left knee. Alignment is anatomic. The imaged joint spaces are preserved. No joint effusion is seen in the left knee. IMPRESSION: 1. No acute fracture or dislocation of the left knee. Dictated by: Dictated on workstation # [id number] Dict: 08/27/21 1302 Trans: 08/27/21 [facility] [place] [phone] Interpreted by: RYAN RAMOS DO Electronically signed by: RYAN RAMOS DO 08/27/21 130 Reviewed: Reviewed by Me Diagonstic Imaging: CT Plain Films/CT/US/NM/MRI: head Comments [facility] [place] NAME: JAMESGl[employer] MED REC#: [id number] PT STATUS: REG ER : 1980 PHYSICIAN: AMARILIS HAAS MD ADMIT DATE: 08/27/21/ER Draft Date of Exam:08/27/21 CT HEAD WO-R/O STROKE PROCEDURE: CT head wo r/o stroke. TECHNIQUE: Multiple contiguous axial images were obtained through the brain without the use of intravenous contrast. Auto Exposure Controls were utilized during the CT exam to meet ALARA standards for radiation dose reduction. INDICATION: Stroke-like symptoms, left leg weakness. COMPARISON: Correlation is made with prior head CT from 07/09/2021. FINDINGS: There is some soft tissue swelling in the left posterior parietal scalp. Ventricles and sulci are within normal limits. No sulcal effacement or midline shift is identified. No acute intra-axial or extra-axial hemorrhage is detected. Cisterns are patent. There is some mucosal thickening of the ethmoid air cells. IMPRESSION: 1. Scalp swelling in the left high posterior parietal region. No acute intracranial process detected. Results were called and discussed with Dr. Haas of the emergency department at 12:50 p.m. Dictated on workstation # [id number] Dict: 08/27/21 1247 Trans: 08/27/21 1256 [id number] Interpreted by: JOSE STOKES MD Electronically signed by: Reviewed: Reviewed by Me Diagonstic Imaging: MRI Plain Films/CT/US/NM/MRI: c-spine Comments NAME: [facility] [facility] REC#: [id number] PT STATUS: REG ER : 1980 PHYSICIAN: AMARILIS HAAS MD ADMIT DATE: 08/27/21/ER Draft Date of Exam:08/27/21 MRI CERVICAL SPINE W/O CONTRAS CLINICAL INDICATION: Patient with CVA with left upper extremity and left lower extremity weakness. EXAM: MRI of the cervical spine performed without IV contrast. Sequences include sagittal T1, sagittal T2, T2 fat-sat, and axial T2. COMPARISON: CT angiogram of the head and neck dated 07/09/2021. MRI of the brain with and without contrast dated 08/23/2021. Findings: There is no acute cervical spine fracture or dislocation. There is severe encroachment upon the cervical cord at the C3 through C5 levels. There is intramedullary high T2 signal within the cervical cord seen at the C3 through C5 levels concerning for cord contusion. Component of myelomalacia cannot be completely excluded. There is a small amount of amorphous increased T2 signal involving the micheline, which is nonspecific. This is better seen on comparison MRI of the brain. There is no significant abnormal cervical vertebral body signal. C1-C2: There is no significant central canal stenosis. C2-C3: There is grqf-jn-xbwhtnsp left facet arthropathy and mild right facet arthropathy. There is a small right uncinate spur with moderate right neural foramen narrowing. There is no significant left neural foramen narrowing. There is kxej-mq-qqxrlhwd central canal narrowing with a small posterior disc bulge. There is ligamentum flavum buckling. C3-C4: There is a broad posterior disk spur and bilateral uncinate spurs. There is at least moderate left neural foramen narrowing and severe right neural foramen narrowing. There is severe central canal stenosis and encroachment upon the cervical spinal cord with deformity. C4-C5: There is a diffuse disc bulge with superimposed moderate-sized broad posterior disc extrusion/herniation. There is severe central canal stenosis with near-complete effacement of the central canal and encroachment upon the cervical cord. There is severe right neural foramen narrowing and at least moderate left neural foramen narrowing. C5-C6: There is a small posterior disc herniation and mild bilateral facet arthropathy. There is mild left neural foramen narrowing and at least moderate right neural foramen narrowing. There is severe central canal stenosis. There is encroachment upon the cervical cord and deformity again noted. C6-C7: There is a mild diffuse disc bulge and mild bilateral facet arthropathy. There is yhkfgxiw-cz-katkqi central canal stenosis. There is no significant neural foramen narrowing. C7-T1: There is no significant central spinal canal or neural foramen narrowing. IMPRESSION: 1: There is severe degenerative disc disease with disc bulges and herniations and facet arthropathy seen at the C3-C4, C4-C5, C5-C6, and C6-C7 levels, which is described in detail above. 2: There is marked encroachment and deformity of the cervical cord with intramedullary cord high T2 signal seen from the C3 through C5 levels due to the severe central canal stenosis from disc disease. These findings may be related to cord contusion, and a component of myelomalacia cannot be completely excluded. Dictated on workstation # [id number] Dict: 08/27/21 1504 Trans: 08/27/21 1530 [id number] Interpreted by: TYLER TINOCO MD Electronically signed by: Reviewed: Reviewed by Me Diagonstic Imaging: MRI Plain Films/CT/US/NM/MRI: head Comments [facility] [place] [place] NAME: HEATHER RAMIREZ MED REC#: [id number] PT STATUS: REG ER : 1980 PHYSICIAN: AMARILIS HAAS MD ADMIT DATE: 08/27/21/ER Signed Date of Exam:08/27/21 MRI BRAIN W/O CONTRAST PROCEDURE: MR imaging of the brain without contrast. TECHNIQUE: Multiplanar, multisequence MR imaging of the brain was performed without contrast. INDICATION: Concern for acute ischemia. Left upper and lower extremity weakness. COMPARISON: CT head performed earlier the same date. FINDINGS: No acute ischemia, mass, or hemorrhage. The ventricles, cortical sulci, and basilar cisterns are symmetric and unremarkable. The sellar and suprasellar regions have a normal appearance. The brainstem and posterior fossa are unremarkable. The paranasal sinuses and mastoid air cells demonstrate normal signal characteristics. Bilateral lens implants are noted. The globes and orbits are symmetric and unremarkable. The scalp and calvarium have a normal appearance. IMPRESSION: 1. No acute ischemia, mass, or hemorrhage. Dictated by: Dictated on workstation # [id number] Dict: 08/27/21 1450 Trans: 08/27/21 1455 [id number] Interpreted by: RYAN RAMOS DO Electronically signed by: RYAN RAMOS DO 08/27/21 1455 Reviewed: Reviewed by Me Consults : Consults Notes Dr. Gudino, stroke neurologist on-call at [facility] at 1320 recommends he is outside the window for stroke intervention acutely. He says is not clear whether this is exacerbation of his spinal stenosis from the fall versus true ischemic injury. His history is murky. He recommends a nonemergent MRI of the head and if still having persistent symptoms may even consider the C-spine. Antiplatelets aspirin should be fine for now. Departure Impression Primary Impression: Spinal stenosis Qualified Codes: M48.00 - Spinal stenosis, site unspecified Additional Impressions: Fall Qualified Codes: W19.XXXA - Unspecified fall, initial encounter CVA (cerebral vascular accident) Qualified Codes: I63.9 - Cerebral infarction, unspecified Disposition: ADMITTED INPATIENT Condition: Stable Admissions Decision to Admit Reason: Admit from ER (General) Decision to Admit/Date: Aug 27, 2021 Time/Decision to Admit Time: 13:49 Departure-Patient Inst. Referrals: NO,LOCAL PHYSICIAN (PCP/Family) Primary Care Physician AMARILIS HAAS Aug 27, 2021 12:58
[2021-08-27 13:00] LABS: ALANINE AMINOTRANSFERASE 16 U/L (0-55)
[2021-08-27] MEDS ORDERED: inSUlin (REGULAR) HUMAN 1 UNIT/0.01 ML (CHARGE PER UNIT) SC ONE (13:00)
--- NOTE | 2021-08-27 13:03 | Diagnostic Imaging Report ---
CLINICAL HISTORY: Fall. Left knee pain. COMPARISON: None. TECHNIQUE: 3 views of the left knee. FINDINGS: There is no acute fracture or dislocation of the left knee. Alignment is anatomic. The imaged joint spaces are preserved. No joint effusion is seen in the left knee. IMPRESSION: 1. No acute fracture or dislocation of the left knee. Dictated by: Dictated on workstation # [id number]
[2021-08-27 13:04] LABS: FIBRIN DEGRADATION PRODUCTS <= 0.27 UG/ML (0.00-0.49); INR 0.9 (0.8-1.4); PARTIAL THROMBOPLASTIN TIME 30 SEC (24-35); PROTHROMBIN TIME PATIENT 12.7 SEC (12.2-14.7)
--- NOTE | 2021-08-27 13:04 | Diagnostic Imaging Report ---
CLINICAL HISTORY: Fall. Left hip pain. COMPARISON: 07/09/2021. TECHNIQUE: 2 views of the left hip. FINDINGS: There is no acute fracture or dislocation of the left hip. Alignment is anatomic. The imaged joint spaces are preserved. Vascular calcifications are seen in the included left lower extremity. IMPRESSION: 1. No acute fracture or dislocation in the left hip. Dictated by: Dictated on workstation # [id number]
--- NOTE | 2021-08-27 13:04 | Diagnostic Imaging Report ---
Indication: Left elbow pain. TIME OF EXAM: 12:44 PM 3 views of the left elbow were obtained. Alignment is normal. No definite fracture is identified. There is no dislocation or effusion. IMPRESSION: No acute bony abnormality is detected. Dictated by: Dictated on workstation # [id number]
[2021-08-27] MEDS ORDERED: IOHEXOL 350 MG/ML 100 ML (OMNIPAQUE 350) VIAL IV ONE (13:15)
[2021-08-27] MEDS ORDERED: NS 100 ML (IVPB) BAG IV ONE (13:15)
[2021-08-27] MEDS ORDERED: HOLD METFORMIN - RECEIVED CONTRAST 20 ML VIAL IV SCH (13:15)
--- NOTE | 2021-08-27 14:53 | Diagnostic Imaging Report ---
PROCEDURE: MR imaging of the brain without contrast. TECHNIQUE: Multiplanar, multisequence MR imaging of the brain was performed without contrast. INDICATION: Concern for acute ischemia. Left upper and lower extremity weakness. COMPARISON: CT head performed earlier the same date. FINDINGS: No acute ischemia, mass, or hemorrhage. The ventricles, cortical sulci, and basilar cisterns are symmetric and unremarkable. The sellar and suprasellar regions have a normal appearance. The brainstem and posterior fossa are unremarkable. The paranasal sinuses and mastoid air cells demonstrate normal signal characteristics. Bilateral lens implants are noted. The globes and orbits are symmetric and unremarkable. The scalp and calvarium have a normal appearance. IMPRESSION: 1. No acute ischemia, mass, or hemorrhage. Dictated by: Dictated on workstation # [id number]
--- NOTE | 2021-08-27 15:31 | Diagnostic Imaging Report ---
CLINICAL INDICATION: Patient with CVA with left upper extremity and left lower extremity weakness. EXAM: MRI of the cervical spine performed without IV contrast. Sequences include sagittal T1, sagittal T2, T2 fat-sat, and axial T2. COMPARISON: CT angiogram of the head and neck dated 07/09/2021. MRI of the brain with and without contrast dated 08/23/2021. Findings: There is no acute cervical spine fracture or dislocation. There is severe encroachment upon the cervical cord at the C3 through C5 levels. There is intramedullary high T2 signal within the cervical cord seen at the C3 through C5 levels concerning for cord contusion. Component of myelomalacia cannot be completely excluded. There is a small amount of amorphous increased T2 signal involving the micheline, which is nonspecific. This is better seen on comparison MRI of the brain. There is no significant abnormal cervical vertebral body signal. C1-C2: There is no significant central canal stenosis. C2-C3: There is gukx-hd-mwcghosc left facet arthropathy and mild right facet arthropathy. There is a small right uncinate spur with moderate right neural foramen narrowing. There is no significant left neural foramen narrowing. There is oknh-ta-vpbyocbf central canal narrowing with a small posterior disc bulge. There is ligamentum flavum buckling. C3-C4: There is a broad posterior disk spur and bilateral uncinate spurs. There is at least moderate left neural foramen narrowing and severe right neural foramen narrowing. There is severe central canal stenosis and encroachment upon the cervical spinal cord with deformity. C4-C5: There is a diffuse disc bulge with superimposed moderate-sized broad posterior disc extrusion/herniation. There is severe central canal stenosis with near-complete effacement of the central canal and encroachment upon the cervical cord. There is severe right neural foramen narrowing and at least moderate left neural foramen narrowing. C5-C6: There is a small posterior disc herniation and mild bilateral facet arthropathy. There is mild left neural foramen narrowing and at least moderate right neural foramen narrowing. There is severe central canal stenosis. There is encroachment upon the cervical cord and deformity again noted. C6-C7: There is a mild diffuse disc bulge and mild bilateral facet arthropathy. There is nncjjqlz-gj-tqhkor central canal stenosis. There is no significant neural foramen narrowing. C7-T1: There is no significant central spinal canal or neural foramen narrowing. IMPRESSION: 1: There is severe degenerative disc disease with disc bulges and herniations and facet arthropathy seen at the C3-C4, C4-C5, C5-C6, and C6-C7 levels, which is described in detail above. 2: There is marked encroachment and deformity of the cervical cord with intramedullary cord high T2 signal seen from the C3 through C5 levels due to the severe central canal stenosis from disc disease. These findings may be related to cord contusion, and a component of myelomalacia cannot be completely excluded. Dictated by: Dictated on workstation # [id number]
[2021-08-27] MEDS ORDERED: NS IV 1000 ML 1,000 ML IV SCH (15:45)
[2021-08-27] MEDS ORDERED: diphenhydrAMINE 25 MG TAB (BENADRYL) PO PRN (17:00)
[2021-08-27] MEDS ORDERED: MILK OF MAGNESIA 400 MG/5 ML 30 ML UDC PO PRN (17:00)
[2021-08-27] MEDS ORDERED: ONDANSETRON 4 MG (ZOFRAN) ORAL DISSOLVE TAB PO PRN (17:00)
[2021-08-27] MEDS ORDERED: NALOXONE 0.4 MG/ML 1 ML (NARCAN) VIAL IV PRN (17:00)
[2021-08-27] MEDS ORDERED: diphenhydrAMINE 50 MG/ML INJ (BENADRYL) IVP PRN (17:00)
[2021-08-27] MEDS ORDERED: ACETAMINOPHEN 325 MG TABLET PO PRN (17:00)
[2021-08-27] MEDS ORDERED: ANTACID SUSP 30 ML UDC (MYLANTA) PO PRN (17:00)
[2021-08-27] MEDS ORDERED: CALCIUM CARBONATE 500 MG (TUMS) TAB.CHEW PO PRN (17:00)
[2021-08-27] MEDS ORDERED: morphine INJ 4 MG/ML 1 ML (VIAL/SYRINGE) IV PRN (17:00)
[2021-08-27] MEDS ORDERED: LACTULOSE SYRUP 10GM/15ML (ENULOSE) 30ML UDC PO PRN (17:00)
[2021-08-27] MEDS ORDERED: ONDANSETRON 4 MG/2 ML (SDV) Z0FRAN IV PRN (17:00)
[2021-08-27] MEDS ORDERED: polyethylene glycoL POWDER 17 GM (MIRALAX) PACK PO PRN (17:00)
[2021-08-27] MEDS ORDERED: MELATONIN 3 MG TABLET PO PRN (17:00)
[2021-08-27] MEDS ORDERED: BISACODYL 10 MG SUPP (DULCOLAX) PR PRN (17:00)
[2021-08-27 17:17] VITALS: BP 100/63
[2021-08-27 17:43] VITALS: BP 122/75
[2021-08-27] MEDS ORDERED: RT-ALBUTEROL SULF 2.5 MG/3 ML PRE-MIX VIAL INH PRN (18:00)
[2021-08-27] MEDS: inSUlin ASPART (NovoLOG) 1 UNIT/0.01 ML (CHARGE PER UNIT) SC SCH ×2 (18:51→22:03)
[2021-08-27 18:54] LABS: BILIRUBIN,URINE NEGATIVE (NEGATIVE); CLARITY,URINE CLEAR; COLOR,URINE YELLOW; GLUCOSE, URINE (UA) 3+ (NEGATIVE); KETONES,URINE NEGATIVE (NEGATIVE); LEUKOCYTE ESTERASE ,URINE NEGATIVE (NEGATIVE); NITRITE,URINE NEGATIVE (NEGATIVE); PROTEIN,URINE 2+ (NEGATIVE)
[2021-08-27 19:01] LABS: AMORPHOUS SEDIMENT,UR MOD AMOR URATES /LPF; BACTERIA,URINE TRACE /HPF; RBC,URINE 0-2 /HPF; WBC,URINE RARE /HPF
[2021-08-27 19:56] VITALS: BP 112/60
[2021-08-27] MEDS: SENNOSIDES 8.6 MG (SENOKOT) TAB PO SCH (20:01)
[2021-08-27] MEDS: DOCUSATE SODIUM 100 MG (COLACE) CAP PO SCH (20:01)
[2021-08-27] MEDS ORDERED: inSUlin ASPART (NovoLOG) 1 UNIT/0.01 ML (CHARGE PER UNIT) SC SCH (21:00)
--- NOTE | 2021-08-27 21:08 | History & Physical-Hospitalist ---
History of Present Illness HPI/Chief Complaint Chief complaint: Severe pain following fall History of present illness: This is a 41-year-old patient originally from the [facility] who has a past medical history of hypertension and diabetes with very poor control and a stroke with subsequent right-sided weakness and overall severe debility uses walker at home who apparently fell at home and laid on the floor since 0100 in the morning because he refused to get up. His family finally compelled him to approve of ambulance transfer to the ER and he was immediately worked up for stroke but NIH score was 2 due to the prior neurological deficit from previous CVA. I obtained an MRI of the brain which shows no evidence of CVA but cervical spine showed severe spinal stenosis with multiple disc herniations and a possible cervical spine cord contusion but mye lomalacia was included in the differential appearing to be a chronic issue with continued debility due to progression of cervical spine disease. I will place him in a hard cervical spine collar and IV steroids and initiate aggressive insulin regimen to counteract hyperglycemia steroids. I will attempt to find neurosurgery to evaluate the patient but does not appear to have a good prognosis per EMS overall baseline debility and significant T2 weighted image signal abnormality of C3-C5 and this appears to be a longer duration of symptoms than previously assessed. We will be in the midst of finding a hospital for transfer but in the meantime we will treat him the best we can since I do not h ave neurosurgery in the hospital. To note he was transferred to [facility] last month for cauda equina syndrome unsure if there is any surgical decompression since the patient does not seem to know. MRI cervical spine: IMPRESSION: 1: There is severe degenerative disc disease with disc bulges and herniations and facet arthropathy seen at the C3-C4, C4-C5, C5-C6, and C6-C7 levels, which is described in detail above. 2: There is marked encroachment and deformity of the cervical cord with intramedullary cord high T2 signal seen from the C3 through C5 levels due to the severe central canal stenosis from disc disease. These findings may be related to cord contusion, and a component of myelomalacia cannot be completely excluded. Exam Limitations: clinical condition, language barrier Date Seen 08/27/21 Time Seen by a Provider: 18:00 Attending Physician Ashley Bell DO PCP No,Local Physician Referring Physician Date of Admission Aug 27, 2021 at 14:07 Home Medications & Allergies Home Medications Reviewed patient Home Medication Reconciliation performed by pharmacy medication reconciliations electronic security technician and/or nursing. Patients Allergies have been reviewed. Allergies Allergies Coded Allergies No Known Drug Allergies (Hbjwztmzgz62/24/21) Past Vlqqvfk-Pmtttf-Hlceez Hx Patient Social History Marrital Status: Employed/Student: unemployed Tobacco Use?: No Smoking Status: Unknown if Ever Smoked Use of E-Cig and/or Vaping dev: No Substance use?: No Alcohol Use?: No Pt feels they are or have been: No Immunizations Up To Date First/Initial COVID19 Vaccinat: MAY 2021 Second COVID19 Vaccination Charly: MAY 2021 Current Status Advance Directives: No Communicates: Verbally Primary Language: [place] Preferred Spoken Language: [place] Is interpretation needed?: Yes Past Medical History Spinal Cord Injury Diabetes, Insulin dep Review of Systems Constitutional: see HPI, malaise, weakness EENTM: no symptoms reported Respiratory: no symptoms reported Cardiovascular: no symptoms reported Gastrointestinal: no symptoms reported Genitourinary: hesitancy Musculoskeletal: no symptoms reported Skin: no symptoms reported Psychiatric/Neurological: No Symptoms Reported All Other Systems Reviewed Negative Unless Noted: Yes Physical Exam Physical Exam Vital Signs Vital Signs - First Documented 08/27/21 08/27/21 12:09 17:43 Temp 36.0 Pulse 67 Resp 20 B/P (MAP) 122/76 (91) Pulse Ox 99 O2 Delivery Room Air FiO2 21 Capillary Refill : Less Than 3 Seconds Height, Weight, BMI Height: '" Weight: lbs. oz. kg; 27.27 BMI Method: General Appearance: No Apparent Distress, Chronically ill Respiratory: Lungs Clear, Normal Breath Sounds, No Accessory Muscle Use, No Respiratory Distress Cardiovascular: Regular Rate, Rhythm Back: Decreased Range of Motion Neurologic/Psychiatric: Alert, Oriented x3, Motor Weakness (Left hand weakness 1/5 and right hand weakness 4/5) Skin: Normal Color, Warm/Dry Results Results/Procedures Labs Laboratory Tests 08/27/21 12:30 Patient resulted labs reviewed. Assessment/Plan Admission Diagnosis Assessment: Neurological deficit rule out CVA with normal MRI History of CVA placed on telemetry ordered echo and cardiology consultation Cervical spine stenosis with possible cervical spinal cord contusion well placed in hard cervical spine collar in place on steroids in meantime and trying to evaluate for transfer where neurosurgery can evaluate him Diabetes dus-th-ovdmyiy requiring aggressive insulin Hypertension Severe chronic debility Plan: IV steroids Insulin Pain control Hard cervical spine collar We will try to transfer to neurosurgery Admission Status: Observation Reason for Inpatient Admission: Neuro deficits Diagnosis/Problems Diagnosis/Problems (1) Spinal cord contusion (2) History of CVA with residual deficit (3) Diabetes (4) Hypertension (5) Right sided weakness (6) Cervical cord myelomalacia (7) Fall Status: Acute Qualifiers: Encounter type: initial encounter Qualified Codes: W19.XXXA - Unspecified fall, initial encounter (8) Spinal stenosis Status: Acute Qualifiers: Spinal region: unspecified Qualified Codes: M48.00 - Spinal stenosis, site unspecified Clinical Quality Measures DVT/VTE Risk/Contraindication: Contraindications-Pharm: Other *list below* Other: cva Stroke: Date of last known well: Aug 27, 2021 Time of last known well: 01:00 ASHLEY BELL DO Aug 27, 2021 21:08
[2021-08-28] VITALS: BP 131/76
[2021-08-28 03:43] VITALS: BP 135/81
[2021-08-28] MEDS: inSUlin ASPART (NovoLOG) 1 UNIT/0.01 ML (CHARGE PER UNIT) SC SCH ×6 (06:09→16:37)
--- NOTE | 2021-08-28 06:43 | Progress Note - Hospitalist ---
Subjective HPI/CC On Admission Date Seen by Provider: Aug 28, 2021 Chief complaint: Severe pain following fall History of present illness: [place] 41[place] [facility] [place] a past medical history of hypertension and diabetes with very poor control and a stroke with subsequent right-sided weakness and o verall severe debility uses walker at home who apparently fell at home and laid on the floor since 0100 in the morning because he refused to get up. His family finally compelled him to approve of ambulance transfer to the ER and he was immediately worked up for stroke but NIH score was 2 due to the prior neurological deficit from previous CVA. I obtained an MRI of the brain which shows no evidence of CVA but cervical spine showed severe spinal stenosis with multiple disc herniations and a possible cervical spine cord contusion but myelomalacia was included in the differential appearing to be a chronic issue with continued debility due to progression of cervical spine disease. I will place him in a hard cervical spine collar and IV steroids and initiate aggressive insulin regimen to counteract hyperglycemia steroids. I will attempt to find neurosurgery to evaluate the patient but does not appear to have a good prognosis per EMS overall baseline debility and significant T2 weighted image signal abnormality of C3-C5 and this appears to be a longer duration of symptoms than previously assessed. We will be in the midst of finding a hospital for transfer but in the meantime we will treat him the best we can since I do not have neurosurgery in the hospital. To note he was transferred to [facility] last month for cauda equina syndrome unsure if there is any surgical decompression since the patient does not seem to know. MRI cervical spine: IMPRESSION: 1: There is severe degenerative disc disease with disc bulges and herniations and facet arthropathy seen at the C3-C4, C4-C5, C5-C6, and C6-C7 levels, which is described in detail above. 2: There is marked encroachment and deformity of the cervical cord with intramedullary cord high T2 signal seen from the C3 through C5 levels due to the severe central canal stenosis from disc disease. These findings may be related to cord contusion, and a component of myelomalacia cannot be completely excluded. Objective Exam Vital Signs Vital Signs Date Time Temp Pulse Resp B/P (MAP) Pulse Ox O2 Delivery O2 Flow Rate FiO2 08/28/21 16:14 37.3 97 20 162/82 (108) 99 Room Air 08/27/21 17:43 21 Capillary Refill : Less Than 3 Seconds Results/Procedures Lab Laboratory Tests 08/28/21 06:40 Patient resulted labs reviewed. Diagnosis/Problems Diagnosis/Problems (1) Spinal cord contusion (2) History of CVA with residual deficit (3) Diabetes (4) Hypertension (5) Right sided weakness (6) Cervical cord myelomalacia (7) Fall Status: Acute Qualifiers: Encounter type: initial encounter Qualified Codes: W19.XXXA - Unspecified fall, initial encounter (8) Spinal stenosis Status: Acute Qualifiers: Spinal region: unspecified Qualified Codes: M48.00 - Spinal stenosis, site unspecified Clinical Quality Measures DVT/VTE Risk/Contraindication: Contraindications-Pharm: Other *list below* Other: cva Stroke: Date of last known well: Aug 27, 2021 Time of last known well: 01:00 SHAYNE JAMES DO Aug 28, 2021 06:43
[2021-08-28 06:54] LABS: BASOPHILS % (AUTO) 0 % (0-10); EOSINOPHILS % (AUTO) 0 % (0-10); HEMATOCRIT 35 % (40-54); HEMOGLOBIN 12.1 g/dL (13.3-17.7); LYMPHOCYTES # (AUTO) 1.3 10^3/uL (1.0-4.0); LYMPHOCYTES % (AUTO) 13 % (12-44); MEAN CORPUSCULAR HEMOGLOBIN 29 pg (25-34); MEAN CORPUSCULAR HGB CONC 34 g/dL (32-36); MEAN CORPUSCULAR VOLUME 85 fL (80-99); MONOCYTES # (AUTO) 0.2 10^3/uL (0.0-1.0); MONOCYTES % (AUTO) 2 % (0-12); NEUTROPHILS # (AUTO) 8.5 10^3/uL (1.8-7.8); NEUTROPHILS % (AUTO) 85 % (42-75); PLATELET COUNT 167 10^3/uL (130-400); WHITE BLOOD COUNT 10.1 10^3/uL (4.3-11.0)
[2021-08-28 07:19] LABS: POTASSIUM 3.9 MMOL/L (3.6-5.0)
[2021-08-28 07:20] LABS: ALBUMIN 2.8 GM/DL (3.2-4.5)
[2021-08-28 07:21] LABS: CALCIUM 8.4 MG/DL (8.5-10.1)
[2021-08-28 07:22] LABS: TOTAL PROTEIN 5.8 GM/DL (6.4-8.2)
[2021-08-28 07:24] LABS: BILIRUBIN,TOTAL 0.4 MG/DL (0.1-1.0)
[2021-08-28 07:26] LABS: CREATININE SERUM 1.09 MG/DL (0.60-1.30)
[2021-08-28 07:40] VITALS: BP 108/64
[2021-08-28] MEDS: DOCUSATE SODIUM 100 MG (COLACE) CAP PO SCH (08:05)
[2021-08-28] MEDS: SENNOSIDES 8.6 MG (SENOKOT) TAB PO SCH (08:05)
[2021-08-28 11:44] VITALS: BP 178/72
--- NOTE | 2021-08-28 12:03 | Diagnostic Imaging Report ---
PROCEDURE: US carotid duplex, bilateral. TECHNIQUE: Multiple real-time grayscale images were obtained over the carotid arteries in various projections, bilaterally. Additional spectral analysis and color Doppler duplex images were also obtained. INDICATION: Stroke COMPARISON: None available FINDINGS: Peak systolic velocities within the bilateral external carotid arteries are mildly elevated, though they do not double the velocities within the bilateral common carotid arteries. Therefore, this is felt to be within normal limits. The remainder the peak systolic velocities throughout the bilateral carotid arterial systems are within normal limits. Additionally, the bilateral internal carotid arteries to common carotid artery ratios are within normal limits. Antegrade flow within the bilateral vertebral arteries. IMPRESSION: No evidence of hemodynamically significant stenosis. Antegrade flow within the bilateral vertebral arteries. Parameters based on the consensus panel Castro-Scale and Doppler ultrasound criteria published May 2003, Radiology, Volume 229. DOPPLER (peak systolic velocity M/S Right Left CCA 1.19 1.18 ICA Proximal .93 .68 ICA Mid .92 .81 ICA Distal .79 .63 RATIO .78 .69 ECA 1.52 1.81 VERT .44 .53 Dictated by: Dictated on workstation # [id number]
--- NOTE | 2021-08-28 12:12 | Physical Therapy Evaluation ---
PT Evaluation-General Medical Diagnosis Admission Date Aug 27, 2021 at 14:07 Medical Diagnosis: Neurological deficit rule out CVA with normal MRI Onset Date: Aug 26, 2021 Therapy Diagnosis Therapy Diagnosis: Gait Deficit, strength deficit Precautions Precautions/Isolations: Fall Prevention, Standard Precautions Referral Physician: Dr. Bell Reason for Referral: Evaluation/Treatment Social History Home: Single Level Current Living Status: Alone Entry Into Home: Stairs Without Railing PT Steps Into Home: 4 Prior Prior Level of Function SCALE: Activities may be completed with or without assistive devices. 0-Jdsfsxzedl-mzxvyza completes the activity by him/herself with no assistance from a helper. 5-Set-up or Clean-up Assistance-helper sets up or cleans up; patient completes activity. [place] assists only prior to or following the activity. 4-Supervision or Touching Assistance-helper provides verbal cues and/or touching/steadying and/or contact guard assistance as patient completes activity. Assistance may be provided throughout the activity or intermittently. 3-Partial/Moderate Assistance-helper does LESS THAN HALF the effort. [place] lifts, holds or supports trunk or limbs, but provides less than half the effort. 2-Substantial/Maximal Assistance-helper does MORE THAN HALF the effort. [place] lifts or holds trunk or limbs and provides more than half the effort. 3-Dgggjtumv-luebiz does ALL the effort. Patient does none of the effort to complete the activity. Or, the assistance of 2 or more helpers is required for the patient to complete the activity. If activity was not attempted, code reason: 7-Patient Refused. 9-Not Applicable-not attempted and the patient did not perform the activity before the current illness, exacerbation or injury. 10-Not Attempted due to Environmental Limitations-(lack of equipment, weather restraints, etc.). 88-Not Attempted due to Medical Conditions or Safety Concerns. Bed Mobility: 6 Transfers (B,C,W/C): 6 Gait: 6 Stairs: 6 Indoor Mobility (Ambulation): Independent Stairs: Independent Prior Devices Use: Walker Prior Device Use: Walker PT Evaluation-Current Subjective Patient first language not [place]. He is able to understand [place] and speaks minimal. Patient reports his neck hurts, but is unable to give rating. Objective Patient Orientation: Person ROM/Strength ROM Lower Extremities WFLs Strength Lower Extremities 3-/5 BLEs all planes Neuromuscular (Tone, Coordination, Reflexes) Impaired in Bilateral LEs for tone and coordination. Sensory Vision: Functional Hearing: Functional Sensation Right Lower Extremit: Intact Sensation Left Lower Extremity: Intact Transfers Roll Left to Right (QC): 3 Sit to Lying (QC): 3 Lying to Sitting/Side of Bed(Q: 3 Sit to Stand (QC): 2 Chair/Wdm-ye-Ydobl Xfer(QC): 2 Gait Does the Patient Walk?: No and Walking Goal IS indicated Mode of Locomotion: Walk Anticipated Mode of Locomotion: Walk Balance Sitting Static: Fair Sitting Dynamic: Fair Standing Static: Poor Standing Dynamic: Poor Assessment/Needs Patient lying supine in bed upon PT arrival, agreeable to treatment however due to language barrier, some of the the conversation is missed. Patient reports pain in his neck, but unable to rate. He presents with a Cervical collar. Patient performs all bed mobility and transfers with max to mod A. Patient performs stand pivot transfers with max A using FWW. He attempts to take steps, however he marches with his LEs to perform stepping. Patient in chair post idris atment with all needs met, nursing notified, call light in reach. Rehab Potential: Guarded Equipment Needs Unsure at this time PT Short Term Goals Short Term Goals Time Frame: Sep 04, 2021 Roll Left & Right: 4 Sit to lyin Lying to sitting on side of be: 4 Sit to stand: 3 Chair/mle-yz-wyyfs transfer: 3 Toilet transfer: 3 PT Light Armored Reconnaissance Officer Goals Light Armored Reconnaissance Officer Goals PT Light Armored Reconnaissance Officer Goals Time Frame: Sep 13, 2021 Roll Left & Right (QC): 5 Sit to Lying (QC): 5 Lying-Sitting on Side/Bed(QC): 5 Sit to Stand (QC): 5 Chair/Giv-mt-Qxwux Xfer(QC): 5 Toilet Transfer (QC): 5 Does the Patient Walk: Yes Walk 10 feet (QC): 3 Walk 50ft with 2 Turns (QC): 3 1 Step (curb) (QC): 3 4 Steps (QC): 3 PT Plan Problem List Problem List: Activity Tolerance, Functional Strength, Safety, Balance, Gait, Transfer, Bed Mobility, ROM Treatment/Plan Treatment Plan: Continue Plan of Care Treatment Plan: Bed Mobility, Education, Functional Activity Sara, Functional Strength, Group Therapy, Gait, Safety, Therapeutic Exercise, Transfers Treatment Duration: Oct 09, 2021 Frequency: 6 times per week Estimated Hrs Per Day: .25 hour per day Patient and/or Family Agrees t: Yes Safety Risks/Education Patient Education: Transfer Techniques, Reviewed Precautions, Safety Issues Teaching Recipient: Patient Teaching Methods: Demonstration, Discussion Response to Teaching: Reinforcement Needed Discharge Recommendations Target Placement Post Acute placement recommended Time/GCodes Time In: 940 Time Out: 1000 Total Billed Treatment Time: 20 Total Billed Treatment Visit, NOEMI Madden PT Aug 28, 2021 12:12
--- NOTE | 2021-08-28 12:13 | Consultation-Cardiology ---
HPI-Cardiology Cardiology Consultation: Date of Consultation 08/28/2021 Date of Admission 08/27/2021 Attending Physician Ashley Bell DO Admitting Physician Clotilde,Local Physician Consulting Physician JERRI LUIS JR, MD HPI: Time Seen by a Provider: 12:11 Chief Complaint: Reason for consultation: Possible stroke. I had pleasure of seeing Operation on the medical/surgical unit at [facility] in [place], [place] today. He is a [id number] man from the [facility]. He does speak some limited amount of Vincentian but is not able to speak Vincentian well enough to provide a history. Unfortunately, our translation services here are not all that convenient using a speaker phone. I obtained the majority of the history from the medical record. The patient presented to the emergency room after he had fallen at home and then was complaining of right-sided weakness. He would not get up off the floor. His family was eventually able to convince him to have them call an ambulance and he was brought to the hospital for further evaluation. Due to his neurologic symptoms, he underwent an MRI of the brain which did not show any evidence of an acute cerebrovascular accident or for that matter any reported signs of an old cerebrovascular accident but did show significant disease of his cervical spine. Because of the initial concern that he may have suffered a stroke, a cardiology consultation was requested. Review of Systems-Cardiology Review of Systems Other comments Not obtained. All Other Systems Reviewed Negative Unless Noted: Yes GRP-Vcjotj-Dkuulq Hx Patient Social History Marrital Status: Employed/Student: unemployed Smoking Status: Unknown if Ever Smoked Have you traveled recently?: No Alcohol Use?: No Pt feels they are or have been: No Past Medical History PMH As described under Assessment. Allergies and Home Medications Allergies Coded Allergies: No Known Drug Allergies (Unverified , 07/09/21) Patient Home Medication List Home Medication List Reviewed: Yes Hydrocodone/Acetaminophen (Hydrocodone-Acetamin 5-325 mg) 1 Each Tablet, 1 TAB PO Q4H PRN for PAIN-MODERATE (5-7) Prescribed by: LESLEE MELO on 07/09/212137 Metformin HCl (Metformin HCl) 500 Mg Tablet, 500 MG PO BID Prescribed by: LESLEE MELO on 07/09/212136 Prednisone (Prednisone) 20 Mg Tab, 40 MG PO DAILY Prescribed by: LESLEE MELO on 07/09/212136 Exam Vital Signs Vital Signs Date Time Temp Pulse Resp B/P (MAP) Pulse Ox O2 Delivery O2 Flow Rate FiO2 08/28/21 11:44 37.4 100 20 178/72 (107) 97 Room Air 08/27/21 17:43 21 Physical Exam General: Alert. No acute distress. Well nourished and appears stated age. Eye: Extraocular movements are intact. Conjunctivae are clear. There are no xanthelasma. HENT: Normocephalic. Atraumatic. Neck: He is in a hard collar and I am not able to evaluate his neck. Respiratory: Lungs are clear to auscultation. Respirations are non-labored. Breath sounds are equal. Symmetrical chest wall expansion. Cardiovascular: Normal rate. Regular rhythm. No murmur. No gallop. Point of maximal impulse is not appear displaced. Good pulses equal in all extremities. No edema. Gastrointestinal: Soft. Normal bowel sounds. Skin: Skin turgor is normal. There is no pallor. Musculoskeletal: As above, his neck is in a hard collar. Neurologic: Alert. Cranial nerves 3-12 appear grossly intact. The patient has some degree of right-sided weakness in the upper and lower extremities. Psychiatric: Cooperative. Appropriate mood & affect. Labs Laboratory Tests Test 08/27/21 15:31 08/27/21 17:26 08/27/21 18:45 08/27/21 21:57 Range/Units Glucometer 304 H 229 H 213 H 70-110 MG/DL Urine Color YELLOW Urine Clarity CLEAR Urine pH 6.0 5-9 Urine Specific [place] 1.020 1.016-1.022 Urine Protein 2+ H NEGATIVE Urine Glucose (UA) 3+ H NEGATIVE Urine Ketones NEGATIVE NEGATIVE Urine Nitrite NEGATIVE NEGATIVE Urine Bilirubin NEGATIVE NEGATIVE Urine Urobilinogen 0.2 < = 1.0 MG/DL Urine Leukocyte Esterase NEGATIVE NEGATIVE Urine RBC (Auto) TRACE-I H NEGATIVE Urine RBC 0-2 /HPF Urine WBC RARE /HPF Urine Crystals PRESENT H /LPF Urine Amorphous Sediment MOD KATHIE URATES H /LPF Urine Bacteria TRACE /HPF Urine Casts NONE /LPF Urine Mucus NEGATIVE /LPF Urine Culture Indicated NO Test 08/28/21 05:00 08/28/21 06:40 08/28/21 10:22 Range/Units Glucometer 227 H 265 H 70-110 MG/DL White Blood Count 10.1 4.3-11.0 10^3/uL Red Blood Count 4.17 L 4.30-5.52 10^6/uL Hemoglobin 12.1 L 13.3-17.7 g/dL Hematocrit 35 L 40-54 % Mean Corpuscular Volume 85 80-99 fL Mean Corpuscular Hemoglobin 29 25-34 pg Mean Corpuscular Hemoglobin Concent 34 32-36 g/dL Red Cell Distribution Width 11.9 10.0-14.5 % Platelet Count 167 130-400 10^3/uL Mean Platelet Volume 10.0 9.0-12.2 fL Immature Granulocyte % (Auto) 0 % Neutrophils (%) (Auto) 85 H 42-75 % Lymphocytes (%) (Auto) 13 12-44 % Monocytes (%) (Auto) 2 0-12 % Eosinophils (%) (Auto) 0 0-10 % Basophils (%) (Auto) 0 0-10 % Neutrophils # (Auto) 8.5 H 1.8-7.8 10^3/uL Lymphocytes # (Auto) 1.3 1.0-4.0 10^3/uL Monocytes # (Auto) 0.2 0.0-1.0 10^3/uL Eosinophils # (Auto) 0.0 0.0-0.3 10^3/uL Basophils # (Auto) 0.0 0.0-0.1 10^3/uL Immature Granulocyte # (Auto) 0.0 0.0-0.1 10^3/uL Sodium Level 133 L 135-145 MMOL/L Potassium Level 3.9 3.6-5.0 MMOL/L Chloride Level 105 98-107 MMOL/L Carbon Dioxide Level 19 L 21-32 MMOL/L Anion Gap 9 5-14 MMOL/L Blood Urea Nitrogen 23 H 7-18 MG/DL Creatinine 1.09 0.60-1.30 MG/DL Estimat Glomerular Filtration Rate 86 BUN/Creatinine Ratio 21 Glucose Level 240 H 70-105 MG/DL Calcium Level 8.4 L 8.5-10.1 MG/DL Corrected Calcium 9.4 8.5-10.1 MG/DL Total Bilirubin 0.4 0.1-1.0 MG/DL Aspartate Amino Transf (AST/SGOT) 13 5-34 U/L Alanine Aminotransferase (ALT/SGPT) 14 0-55 U/L Alkaline Phosphatase 70 40-136 U/L Total Protein 5.8 L 6.4-8.2 GM/DL Albumin 2.8 L 3.2-4.5 GM/DL Triglycerides Level 139 <150 MG/DL Cholesterol Level 199 < 200 MG/DL LDL Cholesterol Direct 139 H 1-129 MG/DL VLDL Cholesterol 28 5-40 MG/DL HDL Cholesterol 30 L 40-60 MG/DL Radiology ECHOCARDIOGRAM (08/28/2021): 1. This is a technically difficult study due to the patient's inability to reposition in the bed. 2. Left ventricle: The cavity size is normal. There is mild concentric hypertrophy. Systolic function is normal. The estimated ejection fraction is 60- 65%. There are no regional wall motion abnormalities identified on this technically difficult study. Left ventricular diastolic function parameters are normal. 3. Atrial septum: The interatrial septum is mobile but does not appear aneurysmal. There is no obvious color flow evidence of a shunt. 4. Right atrium: An agitated saline injection was performed but there was inadequate opacification of the right heart chambers to either confirm or deny any evidence of shunting. 5. Pulmonary arteries: The estimated pulmonary artery systolic pressure is 25 mmHg assuming a right atrial pressure of 5 mmHg. ECG Impression ECG Comment Electrocardiogram from 08/27/2021 shows sinus rhythm with probable early repolarization. Diagnosis/Problems Diagnosis/Problems (1) Right sided weakness Assessment & Plan: As above, his MRI of the brain did not show any evidence of acute, subacute or even an old stroke. I suspect his right-sided weakness is due to the cervical spine disease. The hospitalist is in the process of discussing possible transfer to a facility with neurosurgery on site. I do not see any indication for additional cardiac testing at this point in time. (2) Primary hypertension Assessment & Plan: He has a reported history of hypertension but was not on any antihypertensive medication at home. His blood pressures have been intermittently elevated here in the hospital. Some of this could be related to the intravenous steroids he is receiving due to the spinal cord impingement noted on his MRI. If his blood pressures remain elevated, we may need to start antihypertensive medication. (3) Mixed hyperlipidemia Assessment & Plan: His LDL level is elevated in the setting of type 2 diabetes mellitus. I recommend starting statin medication which I have taken the liberty to order. (4) Type 2 diabetes mellitus without complication Assessment & Plan: This is being managed by the hospitalist. JERRI LUIS JR, MD Aug 28, 2021 12:13
[2021-08-28] MEDS ORDERED: meTOprolol TARTRATE 25 MG (LOPRESSOR) TABLET PO NR (15:00)
[2021-08-28 16:14] VITALS: BP 162/82
--- NOTE | 2021-08-28 16:19 | Consultation ---
History of Present Illness History of Present Illness Patient Consulted On(charly/time) 08/28/21 16:14 Date Seen by Provider: Aug 28, 2021 Time Seen by Provider: 16:14 Reason for Visit: Profound weakness History of Present Illness 41 y/o Male presents with 2+ months of profound progressive weakness, numbness/ full body spasticity, gait disturbance, bowel/bladder difficulties. Was previously evaluated by [facility] for Cauda equina and noted to not be lumbar related, though he did have moderate to severe stenosis on his lumbar spine. Since then has has gotten progressively worse and came back for care after he couldn't stand up at the toilet and fell and hit his head. 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 He is with a child, he speaks mostly [place]an (from the [place]) He enjoys fishing. He denies prior history of significant neuralgic symptoms. Does have diabetes and prior CVA apparently. A phone seismic interpreter with Singaporean was utilized for todays visit. Allergies and Home Medications Allergies Coded Allergies: No Known Drug Allergies (Unverified , 07/09/21) Patient Home Medication List Home Medication List Reviewed: Yes Hydrocodone/Acetaminophen (Hydrocodone-Acetamin 5-325 mg) 1 Each Tablet, 1 TAB PO Q4H PRN for PAIN-MODERATE (5-7) Prescribed by: LESLEE MELO on 07/09/212137 Metformin HCl (Metformin HCl) 500 Mg Tablet, 500 MG PO BID Prescribed by: LESLEE MELO on 07/09/212136 Prednisone (Prednisone) 20 Mg Tab, 40 MG PO DAILY Prescribed by: LESLEE MELO on 07/09/212136 Past Johtzwh-Smgqmv-Vsouru Hx Patient Social History Tobacco Use?: No Smoking Status: Unknown if Ever Smoked Use of E-Cig and/or Vaping dev: No Substance use?: No Alcohol Use?: No Pt feels they are or have been: No Immunizations Up To Date Influenza Vaccine Up-to-Date: No; Not Current First/Initial COVID19 Vaccinat: MAY 2021 Second COVID19 Vaccination Charly: MAY 2021 Third COVID19 Vaccination Date: MAY 2021 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: [email or web address] Past Medical History Surgery/Hospitalization HX: HX STROKE, DM, HTN Spinal Cord Injury Diabetes, Insulin dep Review of Systems-General Constitutional: malaise, weakness EENTM: no symptoms reported Respiratory: no symptoms reported Cardiovascular: no symptoms reported Gastrointestinal: no symptoms reported Genitourinary: incontinence Musculoskeletal: muscle cramps, muscle twitching, muscle weakness Skin: no symptoms reported Psychiatric/Neurological: Numbness, Tingling, Tremors, Weakness Physical Exam-General Problems Physical Exam Vital Signs Vital Signs - First Documented 08/27/21 08/27/21 12:09 17:43 Temp 36.0 Pulse 67 Resp 20 B/P (MAP) 122/76 (91) Pulse Ox 99 O2 Delivery Room Air FiO2 21 Capillary Refill : Less Than 3 Seconds General Appearance: moderate distress Eyes: Bilateral Eye Normal Inspection HEENT: normal ENT inspection Neck: non-tender, full range of motion, supple Respiratory: chest non-tender, no respiratory distress, no accessory muscle use Cardiovascular: normal peripheral pulses, regular rate, rhythm Gastrointestinal: non tender, soft Rectal: deferred Genital/Rectal: other (globally decreased sensation) Back: muscle spasm Extremities: no calf tenderness, other (rigidity/spasm of all 4 extremities) Neurologic/Psychiatric: other (+Clonus/Babinski's and hoffmans, profound hyperreflexia) Reflexes: 3+ Bicep (R), 3+ Bicep (L), 3+ Tricep (R), 3+ Tricep (L), 3+ Knee (R), 3+ Knee (L), 3+ Ankle (R), 3+ Ankle (L) Comments Cervical MRI shows profound Cervical stenosis at C4-5 with moderate stenosis at C3-4, and some retro-vertebral stenosis at C4, Cord edema is present at C4-5 and caudally as well. 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
[2021-08-28] MEDS ORDERED: METO-333 PO (16:53)
[2021-08-28] MEDS ORDERED: ROSU20TA32 PO (16:53)
[2021-08-28] MEDS ORDERED: INSU100V5 SQ (16:53)
[2021-08-28] MEDS ORDERED: OXC5T PO (16:53)
[2021-08-28] MEDS ORDERED: DEXA4VIA39 IV (16:53)
[2021-08-28] MEDS ORDERED: INSU100V16 SC (16:53)
--- NOTE | 2021-08-28 16:53 | Discharge Summary ---
Discharge Summary Hospital Course Was the Problem List Reviewed?: Yes Problems/Dx: (1) Right sided weakness (2) Primary hypertension (3) Mixed hyperlipidemia (4) Type 2 diabetes mellitus without complication (5) Myoclonus (6) Cervical spine syndrome Hospital Course Date of Admission: Aug 27, 2021 at 14:07 Admission Diagnosis : Family Physician/Provider: No,Local Physician Date of Discharge: 08/28/21 Discharge Diagnosis: Severe cervical spinal cord impingement requiring urgent decompression by Dr. SAWYER requiring transfer to [facility], prior CVA with right- sided weakness, diabetes [id number] Hospital Course: Patient had a short hospital course after he was admitted for stroke protocol. MRI brain was normal but cervical spine appeared significant cervical spinal cord impingement giving rise to myoclonus and severe weakness. I reviewed his records from [facility] in June and they ruled out a cauda equina with MRI in the ER and was discharged. Dr. SAWYER was notified he evaluated the patient and the MRI and he chose to take him to [facility] for urgent neuro spine decompression to prevent quadriplegia. Patient had been placed on a hard cervical spine collar and given steroids in case of cervical spinal cord contusion that occurred. High dose steroids of Solu-Medrol unable to be initiated due to severe hyperglycemia but Decadron 6 mg IV twice daily was initiated. Labs and Pending Lab Test: Laboratory Tests 08/27/21 17:26: Glucometer 229H 08/27/21 18:45: Urine Color YELLOW, Urine Clarity CLEAR, Urine pH 6.0, Urine Specific [place] 1.020, Urine Protein 2+H, Urine Glucose (UA) 3+H, Urine Ketones NEGATIVE, Urine Nitrite NEGATIVE, Urine Bilirubin NEGATIVE, Urine Urobilinogen 0.2, Urine Leukocyte Esterase NEGATIVE, Urine RBC (Auto) TRACE-IH, Urine RBC 0-2, Urine WBC RARE, Urine Crystals PRESENTH, Urine Amorphous Sediment MOD KATHIE URATESH, Urine Bacteria TRACE, Urine Casts NONE, Urine Mucus NEGATIVE, Urine Culture Indicated NO 08/27/21 21:57: Glucometer 213H 08/28/21 05:00: Glucometer 227H 08/28/21 06:40: White Blood Count 10.1, Red Blood Count 4.17L, Hemoglobin 12.1L, Hematocrit 35L, Mean Corpuscular Volume 85, Mean Corpuscular Hemoglobin 29, Mean Corpuscular Hemoglobin Concent 34, Red Cell Distribution Width 11.9, Platelet Count 167, Mean Platelet Volume 10.0, Immature Granulocyte % (Auto) 0, Neutrophils (%) (Auto) 85H, Lymphocytes (%) (Auto) 13, Monocytes (%) (Auto) 2, Eosinophils (%) (Auto) 0, Basophils (%) (Auto) 0, Neutrophils # (Auto) 8.5H, Lymphocytes # (Auto) 1.3, Monocytes # (Auto) 0.2, Eosinophils # (Auto) 0.0, Basophils # (Auto) 0.0, Immature Granulocyte # (Auto) 0.0, Sodium Level 133L, Potassium Level 3.9, Chloride Level 105, Carbon Dioxide Level 19L, Anion Gap 9, Blood Urea Nitrogen 23H, Creatinine 1.09, Estimat Glomerular Filtration Rate 86, BUN/Creatinine Ratio 21, Glucose Level 240H, Calcium Level 8.4L, Corrected Calcium 9.4, Total Bilirubin 0.4, Aspartate Amino Transf (AST/SGOT) 13, Alanine Aminotransferase (ALT/SGPT) 14, Alkaline Phosphatase 70, Total Protein 5.8L, Albumin 2.8L, Triglycerides Level 139, Cholesterol Level 199, LDL Cholesterol Direct 139H, VLDL Cholesterol 28, HDL Cholesterol 30L 08/28/21 10:22: Glucometer 265H 08/28/21 16:17: Glucometer 302H Home Meds Active Levemir (Insulin Determir) 1,000 Units/10 Ml Soln 25 Unit SQ BID 365 Days Novolog (Insulin Aspart) 100 Unit/1 Ml Susp 10 Unit SC AC 365 Days Dexamethasone Sodium Phosphate (Dexamethasone Sod Phosphate) 4 Mg/1 Ml Vial 6 Mg IV BID 3 Days Oxyir Tablet (Oxycodone HCl) 5 Mg Tab 5 Mg PO Q4HR PRN 3 Days Metoprolol Tartrate 25 Mg Tablet 12.5 Mg PO BID 365 Days Rosuvastatin Calcium 20 Mg Tablet 20 Mg PO HS 365 Days Hydrocodone-Acetamin 5-325 mg (Hydrocodone/Acetaminophen) 1 Each Tablet 1 Tab PO Q4H PRN Prednisone 20 Mg Tab 40 Mg PO DAILY Metformin HCl 500 Mg Tablet 500 Mg PO BID Assessment/Pt Instructions [facility] Discharge Planning: <30 minutes discharge planning Discharge Instructions Discharge Diet: ADA Diet Activity as Tolerated: Yes Discharge Physical Examination Vital Signs Vital Signs Date Time Temp Pulse Resp B/P (MAP) Pulse Ox O2 Delivery O2 Flow Rate FiO2 08/28/21 16:14 37.3 97 20 162/82 (108) 99 Room Air 08/27/21 17:43 21 General Appearance: No Apparent Distress, WD/WN Allergies: Coded Allergies: No Known Drug Allergies (Unverified , 07/09/21) Discharge Summary Date of Admission Aug 27, 2021 at 14:07 Date of Discharge Discharge Date: Aug 28, 2021 Admission Diagnosis Assessment: Neurological deficit rule out CVA with normal MRI History of CVA placed on telemetry ordered echo and cardiology consultation Cervical spine stenosis with possible cervical spinal cord contusion well placed in hard cervical spine collar in place on steroids in meantime and trying to evaluate for transfer where neurosurgery can evaluate him Diabetes [id number] requiring aggressive insulin Hypertension Severe chronic debility Plan: IV steroids Insulin Pain control Hard cervical spine collar We will try to transfer to neurosurgery Discharge Diagnosis (1) Right sided weakness Assessment & Plan: As above, his MRI of the brain did not show any evidence of acute, subacute or even an old stroke. I suspect his right-sided weakness is due to the cervical spine disease. The hospitalist is in the process of discussing possible transfer to a facility with neurosurgery on site. I do not see any indication for additional cardiac testing at this point in time. (2) Primary hypertension Assessment & Plan: He has a reported history of hypertension but was not on any antihypertensive medication at home. His blood pressures have been intermittently elevated here in the hospital. Some of this could be related to the intravenous steroids he is receiving due to the spinal cord impingement noted on his MRI. If his blood pressures remain elevated, we may need to start antihypertensive medication. (3) Mixed hyperlipidemia Assessment & Plan: His LDL level is elevated in the setting of type 2 diabetes mellitus. I recommend starting statin medication which I have taken the liberty to order. (4) Type 2 diabetes mellitus without complication Assessment & Plan: This is being managed by the hospitalist. Clinical Quality Measures DVT/VTE Risk/Contraindication: Contraindications-Pharm: Other *list below* Other: cva Stroke: Date of last known well: Aug 27, 2021 Time of last known well: 01:00 SHAYNE JAMES DO Aug 28, 2021 16:53
[2021-08-28 18:31] VITALS: BP 162/82
[2021-08-28] MEDS ORDERED: meTOprolol TARTRATE 25 MG (LOPRESSOR) TABLET PO SCH (21:00)
[2021-08-28] MEDS ORDERED: ROSUVASTATIN 20 MG (CRESTOR) TABLET PO SCH (21:00)
== END 2021-08-28 18:30 | disposition short-term general hospital (02) ==
LOC: EDUNIT# 12:02 → ER 12:14 → 4TH 14:07
PROVIDERS: ADMIT Internal Medicine; ATTEND Internal Medicine
DX: S14.109A Unspecified injury at unspecified level of cervical spinal cord, initial encounter (principal); M48.00 Spinal stenosis, site unspecified; I63.9 Cerebral infarction, unspecified; E13.9 Other specified diabetes mellitus without complications; G25.3 Myoclonus; R53.1 Weakness; I10 Essential (primary) hypertension; E78.2 Mixed hyperlipidemia; W19.XXXA Unspecified fall, initial encounter; Z79.84 Long term (current) use of oral hypoglycemic drugs; Z79.899 Other long term (current) drug therapy; Z79.891 Long term (current) use of opiate analgesic; Z86.73 Personal history of transient ischemic attack (TIA), and cerebral infarction without residual deficits
CPT/HCPCS: 36415; 70450; 70551; 72141; 73080; 73502; 73562; 80053; 80061; 81000; 82550; 82947; 83036; 84484; 85025; 85379; 85610; 85730; 93005; 93041; 93306; 93880; G0378

== ENCOUNTER 2021-09-01 09:12 | Inpatient (IN) | payer OTHER ==
[~2021-09-01] VITALS: Ht 165.1 cm; Wt 72.6 kg
[~2021-09-01 09:12] MED LIST changes: +DEXA4VIA39 IV; +INSU100V16 SC; +INSU100V5 SQ; +METO-333 PO; +OXC5T PO; +ROSU20TA32 PO
[2021-09-01] MEDS ORDERED: ONDA4TAB11 PO (09:48)
[2021-09-01] MEDS ORDERED: OXYC-473 PO (09:48)
[2021-09-01] MEDS ORDERED: BISA5TAB8 PO (09:48)
[2021-09-01] MEDS ORDERED: ROSU20TA32 PO (09:48)
[2021-09-01] MEDS ORDERED: ACET325C7 PO (09:48)
[2021-09-01] MEDS ORDERED: METO-333 PO (09:48)
[2021-09-01] MEDS ORDERED: BENZ1LOZ61 MM (09:48)
[2021-09-01] MEDS ORDERED: POLY17PO6 PO (09:48)
[2021-09-01] MEDS ORDERED: CALCIUM CARBONATE 500 MG (TUMS) TAB.CHEW PO PRN (11:30)
[2021-09-01] MEDS ORDERED: ALPRAZolam 0.25 MG (XANAX) TAB PO PRN (11:30)
[2021-09-01] MEDS ORDERED: diphenhydrAMINE 25 MG TAB (BENADRYL) PO PRN (11:30)
[2021-09-01] MEDS ORDERED: MELATONIN 3 MG TABLET PO PRN (11:30)
[2021-09-01] MEDS ORDERED: DOCUSATE SODIUM 100 MG (COLACE) CAP PO PRN (11:30)
[2021-09-01] MEDS ORDERED: LACTULOSE SYRUP 10GM/15ML (ENULOSE) 30ML UDC PO PRN (11:30)
[2021-09-01] MEDS ORDERED: BISACODYL 10 MG SUPP (DULCOLAX) PR PRN (11:30)
[2021-09-01] MEDS ORDERED: guaiFENesin/CODEINE (ROBITUSSIN AC) 10ML UDC PO PRN (11:30)
[2021-09-01] MEDS ORDERED: FLEET ENEMA ADULT 1 EA BTL PR PRN (11:30)
--- NOTE | 2021-09-01 11:33 | PM&R Post Admission Assessment ---
PM&R Date of Visit: Sep 01, 2021 Time of Visit: 16:00 History of Present Illness CC: Debility from cervical spine stenosis urgent surgery HPI: 41 yr old male from the [facility] who presents after I transferred to [facility] urgently on Monday to Dr. Higuera's service. Pt underwent urgent cervical spine stenosis decompression and is currently in need of recovery. He does have a history of CVA with right sided weakness and out of control diabetes. He is insulin dependent but non-compliant. He was near quadraplegic status when he was transferred over, after I placed him on a C collar, steroids, and increased insulin regimen. Currently he will require aggressive rehabilitation with PT and OT with use of assisted devices in order to regain function in order to return to independent living. Aggressive insulin regimen will be initiated and we will monitor pt closely for any neurological signs. Past Yezazgl-Pxbjnf-Mcknbx Hx Past Med/Social Hx: Reviewed Nursing Past Med/Soc Hx, Reviewed and Corrections made Patient Social History Marrital Status: Employed/Student: unemployed Alcohol Use: Denies Use Smoking Status: Never a Smoker Past Medical History Surgeries: Orthopedic Cardiac: High Cholesterol, Hypertension Neurological: Spinal Cord Injury, Stroke Endocrine: Diabetes, Insulin dep PM&R Allergy/Meds/Data Review Allergies Coded Allergies: No Known Drug Allergies (Unverified , 07/09/21) Home Medications Scheduled Metoprolol Tartrate (Metoprolol Tartrate), 12.5 MG PO BID, (Reported) Polyethylene Glycol 3350 (Miralax), 17 GM PO Q12H, (Reported) Rosuvastatin Calcium (Rosuvastatin Calcium), 20 MG PO HS, (Reported) Scheduled PRN Acetaminophen (Tylenol), 325 MG PO Q4H PRN for PAIN-MILD (1-4), (Reported) Benzocaine/Menthol (Cepacol Sore Throat Lozenge), 1 EACH MM EVERY 2 HOURS PRN for SORE THROAT, (Reported) Bisacodyl (Bisacodyl), 10 MG PO Q12H PRN for CONSTIPATION-4TH LINE, (Reported) Ondansetron (Ondansetron Odt), 4 MG PO Q6H PRN for NAUSEA/VOMITING-1ST LINE, (Reported) Oxycodone HCl (Roxicodone), 5 MG PO Q4H PRN for PAIN-MODERATE (5-7), (Reported) Discontinued Medications Dexamethasone Sod Phosphate (Dexamethasone Sodium Phosphate), 6 MG IV BID Discontinued Reason: No Longer Taking Hydrocodone/Acetaminophen (Hydrocodone-Acetamin 5-325 mg), 1 TAB PO Q4H PRN for PAIN-MODERATE (5-7) Insulin Aspart (Novolog), 10 UNIT SC AC Discontinued Reason: No Longer Taking Insulin Determir (Levemir), 25 UNIT SQ BID Discontinued Reason: No Longer Taking Metformin HCl (Metformin HCl), 500 MG PO BID Metoprolol Tartrate (Metoprolol Tartrate), 12.5 MG PO BID Discontinued Reason: No Longer Taking Oxycodone Hcl (Oxyir Tablet), 5 MG PO Q4HR PRN for PAIN-SEE DOSE INSTRUCTIONS Discontinued Reason: No Longer Taking Prednisone (Prednisone), 40 MG PO DAILY Rosuvastatin Calcium (Rosuvastatin Calcium), 20 MG PO HS Discontinued Reason: No Longer Taking Current Medications Current Medications Reviewed Review of Systems Constitutional: see HPI, dizziness, malaise, weakness EENTM: no symptoms reported Respiratory: no symptoms reported Cardiovascular: no symptoms reported Gastrointestinal: no symptoms reported Genitourinary: no symptoms reported Musculoskeletal: back pain, joint pain, muscle pain, muscle stiffness, muscle cramps, muscle twitching, muscle weakness, neck pain Skin: no symptoms reported Psychiatric/Neurological: Anxiety, Depressed All Other Systems Reviewed Negative Unless Noted: Yes Physical Exam Physical Exam Vital Signs Capillary Refill : Height, Weight, BMI Height: '" Weight: lbs. oz. kg; 27.27 BMI Method: General Appearance: No Apparent Distress, WD/WN, Chronically ill, Obese Eyes: Bilateral Eye Normal Inspection, Bilateral Eye PERRL HEENT: PERRL/EOMI, Normal ENT Inspection, Pharynx Normal Neck: Full Range of Motion, Normal Inspection, Non Tender, Supple, Carotid Bruit Respiratory: Chest Non Tender, Lungs Clear, Normal Breath Sounds, No Accessory Muscle Use, No Respiratory Distress Cardiovascular: Regular Rate, Rhythm, No Edema, No Gallop, No JVD, No Murmur, Normal Peripheral Pulses Gastrointestinal: Normal Bowel Sounds, No Organomegaly, No Pulsatile Mass, Non Tender, Soft Back: Normal Inspection, No CVA Tenderness, No Vertebral Tenderness, Decreased Range of Motion (Neck) Extremity: Normal Capillary Refill, Normal Inspection, Normal Range of Motion, Non Tender, No Calf Tenderness, No Pedal Edema Neurologic/Psychiatric: Alert, Oriented x3, Normal Mood/Affect, Abnormal Gait, Motor Weakness (All extremities, right arm and hand 3/5, left arm and hand 2/5) Skin: Normal Color, Warm/Dry Lymphatic: No Adenopathy PM&R Medical Assessment & Plan REHAB/MEDICAL ASSESSMENT AND PLAN: REHAB IMPAIRMENT GROUP: Cervical spine stenosis ETIOLOGIC DIAGNOSIS: Cervical spine stenosis The comorbidities that impact the patients function and/or functional outcome by: Diabetes [id number], language barrier, fall risk, near quad status REHAB PLAN: The patient is being admitted to our comprehensive inpatient rehabilitation facility and can tolerate the intensity of service consisting of at least: 180 minutes of therapy a day, 5 out of 7 days a week Rehab treatment will consist of: PT and OT will focus on regaining enough function with use of assistive devices in order to return patient independent living with family and decrease fall risk The patient/family has a good understanding of our discharge process and will benefit from an interdisciplinary inpatient rehabilitation program. The patient has potential to make improvement and is in need of at least two of the following multidisciplinary therapies including but not limited to physical, occupational, speech, and prosthetics and orthotics. Additionally the patient will need services from respiratory, nutritional services, wound care, psychology, etc. (Customize this to each patient). Given the patients complex condition and risk of further medical complications, rehabilitation services cannot be safely or effectively provided at a lower level of care such as a senior living facility. BARRIERS TO DISCHARGE: Language barrier and minimal resources ESTIMATED LOS: 10 days DISPOSITION: home RELEVANT CHANGES SINCE PREADMISSION SCREENING: I have compared the patients medical and functional status at the time of the preadmission screening and there are: No changes PROGNOSIS: Fair REHABILITATION GOALS: 1. PT and OT will focus on regaining enough function with use of assistive devices in order to return patient independent living with family and decrease fall risk All the above goals were reviewed with the patient and he/she is in agreement. By signing this document, I acknowledge that I have personally performed a full physical examination on this patient within 24 hours of admission to this inpatient rehabilitation facility and have determined the patient to be able to tolerate the above course of treatment at an intensive level for a reasonable period of time. I will be completing a detailed individualized Plan of Care for this patient by day #4 of the patients stay based upon the Preadmission Screen, the Post-Admission Evaluation, and the therapy evaluations. 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 (3) Type 2 diabetes mellitus without complication ICD Codes: E11.9 - Type 2 diabetes mellitus without complications (4) Primary hypertension ICD Codes: I10 - Essential (primary) hypertension (5) Mixed hyperlipidemia ICD Codes: E78.2 - Mixed hyperlipidemia (6) History of CVA with residual deficit ICD Codes: I69.30 - Unspecified sequelae of cerebral infarction (7) Right sided weakness ICD Codes: R53.1 - Weakness (8) Cervical cord myelomalacia ICD Codes: G95.89 - Other specified diseases of spinal cord (9) Spinal cord contusion (10) Fall Status: Acute ICD Codes: W19.XXXA - Unspecified fall, initial encounter Assessment/Plan Assessment and Plan Assess & Plan/Chief Complaint Assessment: 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 Diabetes [id number]-toomvfs Hypertension Hyperlipidemia Previous CVA with right-sided weakness Plan: Aggressive therapy Pain control Monitor bowel function Insulin SHAYNE JAMES DO Sep 01, 2021 11:33
[2021-09-01 13:10] VITALS: BP 176/88
--- NOTE | 2021-09-01 14:29 | Physical Therapy Evaluation ---
PT Evaluation-General Medical Diagnosis Admission Date Sep 01, 2021 at 12:56 Medical Diagnosis: cervical myelopathy Onset Date: Aug 30, 2021 Therapy Diagnosis Therapy Diagnosis: impaired mobility, strength, endurance Precautions Precautions/Isolations: Fall Prevention, Standard Precautions, Pressure Ulcer Referral Physician: Ashley Bell DO Reason for Referral: Evaluation/Treatment Medical History Pertinent Medical History: CVA, DM Reviewed History: Yes Social History unknown due to communication barrier Prior Prior Level of Function SCALE: Activities may be completed with or without assistive devices. 6-Gawluszovd-vtqydzl completes the activity by him/herself with no assistance from a helper. 5-Set-up or Clean-up Assistance-helper sets up or cleans up; patient completes activity. [place] assists only prior to or following the activity. 4-Supervision or Touching Assistance-helper provides verbal cues and/or touching/steadying and/or contact guard assistance as patient completes activity. Assistance may be provided throughout the activity or intermittently. 3-Partial/Moderate Assistance-helper does LESS THAN HALF the effort. [place] lifts, holds or supports trunk or limbs, but provides less than half the effort. 2-Substantial/Maximal Assistance-helper does MORE THAN HALF the effort. [place] lifts or holds trunk or limbs and provides more than half the effort. 9-Nhexuajds-jopbmz does ALL the effort. Patient does none of the effort to complete the activity. Or, the assistance of 2 or more helpers is required for the patient to complete the activity. If activity was not attempted, code reason: 7-Patient Refused. 9-Not Applicable-not attempted and the patient did not perform the activity before the current illness, exacerbation or injury. 10-Not Attempted due to Environmental Limitations-(lack of equipment, weather restraints, etc.). 88-Not Attempted due to Medical Conditions or Safety Concerns. unknown due to communication barrier but patient was working PT Evaluation-Current Subjective Patient in bed pre tx, agrees to PT, has no complaints of pain but does have some pain in his left arm with movement. Will be co-treating with OT due to poor patient mobility, strength, endurance, severe debility, coordinate UE and LE during activity, safety and reduce risk of falls. Pt/Family Goals none stated Objective Patient Orientation: Person, Unable to Assess cervical collar ROM/Strength ROM Lower Extremities WNL Strength Lower Extremities grossly 3/5 BLE Sensory Hearing: Functional Sensation Lower Extremities unable to assess Transfers Roll Left & Right (QC): 3 Sit to Lying (QC): 3 Lying to Sitting/Side of Bed(Q: 3 Sit to Stand (QC): 1 Chair/Ldu-qd-Eopcc Xfer(QC): 1 Toilet Transfer (QC): 1 Car Transfer (QC): 88 Patient performs rolling with min assist, supine <-> sit mod assist, sit <-> stand and transfers dependent using a sit to stand machine. Gait Walk 10 feet (QC): 88 Walk 50 ft with 2 Turns(QC): 88 Walk 150 ft (QC): 88 Walking 10ft/uneven surface-QC: 88 Wheelchair Training Wheel 50 ft with 2 turns (QC): 88 Wheel 150 ft (QC): 88 Patient is not able to push with his arms due to weakness, nor use his legs Stairs 1 Step (curb) (QC): 88 4 Steps (QC): 88 12 Steps (QC): 88 Balance Sitting Static: Fair Sitting Dynamic: Poor Standing Static: Poor Standing Dynamic: Poor Picking up an Object (QC): 88 Treatment Patient stood in the parallel bars x3 with assist of 2 for about 30 to 40 sec each time, then stood in the standing frame for about 15 min and doing UE activity. PT performed bed mobility and transfers, standing, OT performed UE positioning and safety, assisted with transfers. Assessment/Needs Patient in therapy gym post tx, handing off to YARDER. Patient has impaired mobility, strength, endurance. He has some spasticity in BLE, knees need blocked when standing in parallel bars to prevent buckling. Rehab Potential: Guarded PT Short Term Goals Short Term Goals Time Frame: Sep 08, 2021 Roll Left & Right: 4 Sit to lyin Lying to sitting on side of be: 3 Sit to stand: 2 Chair/ipg-sx-imrsa transfer: 2 PT Longterm Goals Longterm Goals PT Longterm Goals Time Frame: Sep 22, 2021 Roll Left & Right (QC): 4 Sit to Lying (QC): 4 Lying-Sitting on Side/Bed(QC): 4 Sit to Stand (QC): 3 Chair/Exg-kk-Pqfzw Xfer(QC): 3 Toilet Transfer (QC): 3 Car Transfer (QC): 3 Does the Patient Walk: No and Walking Goal NOT indicated Walk 10 feet (QC): 88 Walk 50ft with 2 Turns (QC): 88 Walk 150 ft (QC): 88 Walking 10ft on Uneven Surface: 88 1 Step (curb) (QC): 88 4 Steps (QC): 88 12 Steps (QC): 88 Picking up an Object (QC): 3 Wheel 50 feet with 2 turns (QC: 3 Wheel 150 feet: 3 PT Plan Problem List Problem List: Activity Tolerance, Functional Strength, Safety, Balance, Gait, Transfer, Bed Mobility, ROM Treatment/Plan Treatment Plan: Continue Plan of Care Treatment Plan: Bed Mobility, Education, Functional Activity Sara, Functional Strength, Group Therapy, Gait, Safety, Therapeutic Exercise, Transfers Treatment Duration: Sep 22, 2021 Frequency: At least 5 of 7 days/Wk (IRF) Estimated Hrs Per Day: 1.5 hours per day Patient and/or Family Agrees t: Yes Safety Risks/Education Patient Education: Transfer Techniques, Reviewed Precautions, Correct Positioning, W/C Management, Safety Issues Teaching Recipient: Patient Teaching Methods: Demonstration, Discussion Response to Teaching: Reinforcement Needed Discharge Recommendations Plan Patient will perform bed mobility and transfer training, balance and endurance training, functional strengthening, gait training, and education, to improve functional mobility and independence at home. Therapy Discharge Recommendati: 24 Hour Supervision, Home & Family Time/GCodes Time In: 1315 Time Out: 1415 Total Billed Treatment Time: 60 Total Billed Treatment 1 visit EVM 10' FA 50' PT karynaal from [id number], co-treat from [id number] VERONICA MONIQUE PT Sep 01, 2021 14:29
[2021-09-01] MEDS: ACETAMINOPHEN 325 MG TABLET PO PRN (14:36)
--- NOTE | 2021-09-01 14:51 | Occupational Therapy Eval ---
OT Evaluation-General/PLF Medical Diagnosis Admission Date Sep 01, 2021 at 12:56 Medical Diagnosis: cervical myelopathy Onset Date: Aug 30, 2021 Therapy Diagnosis Therapy Diagnosis: decreased ADL status, weakness Precautions Precautions/Isolations: Fall Prevention, Standard Precautions, Pressure Ulcer Referral Physician: Ashley Bell DO Referral Reason: Evaluation/Treatment Medical History Pertinent Medical History: CVA, DM, HTN Additional Medical History YOLI, HTN, HLD, orthostatic hypotension, insomnia, DM, CVA Current History 08/28/21 transfer to [facility] with severe cervical myelopathy, s/p cervical corpectomy 08/30/21. Social History Home: Single Level Current Living Status: Spouse Entry Into Home: Stairs With Railing Steps Into Home: 4 ADL-Prior Level of Function SCALE: Activities may be completed with or without assistive devices. 6-Narmapjwsz-zjyfxls completes the activity by him/herself with no assistance from a helper. 5-Set-up or Clean-up Assistance-helper sets up or cleans up; patient completes activity. [place] assists only prior to or following the activity. 4-Supervision or Touching Assistance-helper provides verbal cues and/or touching/steadying and/or contact guard assistance as patient completes activity. Assistance may be provided throughout the activity or intermittently. 3-Partial/Moderate Assistance-helper does LESS THAN HALF the effort. [place] lifts, holds or supports trunk or limbs, but provides less than half the effort. 2-Substantial/Maximal Assistance-helper does MORE THAN HALF the effort. [place] lifts or holds trunk or limbs and provides more than half the effort. 8-Wqlutuorp-lchvci does ALL the effort. Patient does none of the effort to complete the activity. Or, the assistance of 2 or more helpers is required for the patient to complete the activity. If activity was not attempted, code reason: 7-Patient Refused. 9-Not Applicable-not attempted and the patient did not perform the activity before the current illness, exacerbation or injury. 10-Not Attempted due to Environmental Limitations-(lack of equipment, weather restraints, etc.). 88-Not Attempted due to Medical Conditions or Safety Concerns. ADL PLOF Comments Per chart review from previous hospital, pt was independent with ADLs and functional mobility without AD, assisting with iADLs. Pt has required assistance ~3 months with LBD and bathing as his condition worsened. he works at [employer], having to lift 20 pounds rarely. Self Care: Independent Functional Cognition: Independent DME/Equipment: Bath Chair, Tub/Shower OT Current Status Subjective Pt agreeable to OT evaluation and OT/PT cotreat. Pt's primary language is not Turkmen, but he is able to understand and communicate with simple Turkmen and gestures. Mental Status/Objective Patient Orientation: Person, Place, Time, Situation Attachments: Tyson Catheter Current Hearing Aids: No Dentures/Partials: No Upper Extremity ROM LUE shoulder flexion to approx 70 degrees, pt then begins to wince in pain. Pt unable to make full fist with L hand. RUE shoulder flexion to approx 150 degrees, able to make full fist Upper Extremity Coordination decreased bilaterally. Decreased coordination RUE, and decreased LUE due to being unable to make full fist. Upper Extremity Strength unable to formally assess due to language barrier. Decreased bilaterally. ADL-Treatment Eating (QC): 2 (Pt required max A with eating lunch due to decreased coordination) Oral Hygiene (QC): 3 (Min A) Shower/Bathe Self (QC): 1 (Per clincial judgment, dependent) Upper Body Dressing (QC): 2 (Per clinical judgment.) Lower Body Dressing (QC): 1 (assist all parts, and use of sit to stand lift.) On/Off Footwear (QC): 1 (total assist gripper socks.) Toileting Hygiene (QC): 1 (total assist at bed level.) Other Treatments OT evaluation complete. OT/PT cotreat due to skill of 2 clinicians required which a vocational rehabilitation specialist could not perform in order to coordinate UE/LEs, decrease f all risk, and due to pt's limitations in strength, mobility, activity tolerance. OT focused on ADLs, UE placement, cues for sequencing and safety, PT focused on LE placement, gross overall movement, transfers/mobility. Pt transferred from w/c transport to bed, then transferred to EOB. Sit to stand lift utilized to transfer to w/c. Pt unable to propel w/c due to decreased UE grasp and strength. Pt stood in parallel bars x3, assist x2 (30-40 seconds each), then stood in standing frame for 15 mins while completing UE activities. Pt utilized RUE to manipulate wooden pegs, flipping over each peg, pt able to complete x2. Noted decreased RUE coordination, pt often dropping peg while manipulating. Pt then able to remove x10 1" pegs from foam pegboard using LUE, pt unable to fully grasp peg, but able to remove all pegs, but only able to place 5 of them back in the box due to decreased grasp. Pt taken back to his room, completed oral care seated at sink and washed his face. Sit to stand lift used to return to bed, then transferred supine. Pt's lunch arrived, OT assisted pt with eating due to fatigue and decreased coordination. Post tx, nursing staff present to continue assisting pt with feeding, call light in reach and all needs met. Min A rolling, mod A supine to/from sit, dependent sit to/from stand (sit to stand lift). Education OT Patient Education: Correct positioning, Energy conservation, Exercise program, Modified ADL techniques, Progress toward Goal/Update tx plan, Purpose of tx/functional activities, Rehab process Teaching Recipient: Patient Teaching Methods: Discussion Response to Teaching: Verbalize Understanding OT Short Term Goals Short Term Goals Time Frame: Sep 22, 2021 Toileting hygiene: 2 Shower/bathe self: 2 Upper body dressin Lower body dressin Putting on/taking off footwear: 3 OT Pharmacy Technology Instructor Goals Pharmacy Technology Instructor Goals Time Frame: Oct 01, 2021 Eating (QC): 5 Oral Hygiene (QC): 6 Toileting Hygiene (QC): 4 Shower/Bathe Self (QC): 4 Upper Body Dressing (QC): 5 Lower Body Dressing (QC): 4 On/Off Footwear (QC): 4 Additional Goals: 1-Demonstrate ADL Tasks, 2-Verbalize Understanding, 3- ImproveStrength/Sara 1=Demonstrate adherence to instructed precautions during ADL tasks. 2=Patient will verbalize/demonstrate understanding of assistive devices/modifications for ADL. 3=Patient will improve strength/tolerance for activity to enable patient to perform ADL's. OT Education/Plan Problem List/Assessment Assessment: Decreased Activ Tolerance, Decreased UE Strength, Dependent Transfers, Impaired Bed Mobility, Impaired Coordination, Impaired Funct Balance, Impaired I ADL's, Impaired Self-Care Skills, Restricted Funct UE ROM Discharge Recommendations Plan/Recommendations: Continue POC Treatment Plan/Plan of Care Patient would benefit from OT for education, treatment and training to promote independence in ADL's, mobility, safety and/or upper extremity function for ADL's. Plan of Care: ADL Retraining, Functional Mobility, Group Exercise/Act as Ind, UE Funct Exercise/Act, UE Neuromus Re-Ed/Coord Treatment Duration: Oct 01, 2021 Frequency: At least 5 of 7 days/Wk (IRF) Estimated Hrs Per Day: 1.5 hours per day Agreement: Yes Rehab Potential: Fair Time/GCodes Start Time: 13:05 Stop Time: 14:45 Total Time Billed (hr/min): 90 Billed Treatment Time 1090-5130 OT eval, 9787-4360 PT eval, 7287-5540 Cotreat 1, EVM (10'), FA 3 (50'), ADL 2 (30') YVONNE MORFIN OT Sep 01, 2021 14:51
--- NOTE | 2021-09-01 14:59 | Physical Therapy Daily Note ---
PT Daily Note-Current Subjective Pt. smiles and agreeable to co treatment with PT OT for hygeine at bthrm sink, TRF skills, and fine motor for attempt at eating and LE A/AAROM LEs . Pt. requires skilled care of 2 clinicians secondary to dependent level of debility and safety concerns, PT OT jointly achieving safe treatment , TRFs and instruction slowly communicating with patient as bes possible. Pain Numeric Pain Scale: 5-Moderate Pain Location: No Pain Reported, Medial Location Body Site: Neck Pain Description: Ache Mental Status Patient Orientation: Normal For Age Attachments: Other-See Comments (neck brace) Transfers SCALE: Activities may be completed with or without assistive devices. 1-Hqqekihaxg-ehdyitw completes the activity by him/herself with no assistance fr om a helper. 5-Set-up or Clean-up Assistance-helper sets up or cleans up; patient completes activity. [place] assists only prior to or following the activity. 4-Supervision or Touching Assistance-helper provides verbal cues and/or touching/steadying and/or contact guard assistance as patient completes activity. Assistance may be provided throughout the activity or intermittently. 3-Partial/Moderate Assistance-helper does LESS THAN HALF the effort. [place] lifts, holds or supports trunk or limbs, but provides less than half the effort. 2-Substantial/Maximal Assistance-helper does MORE THAN HALF the effort. [place] lifts or holds trunk or limbs and provides more than half the effort. 4-Lpztzsgcx-opzetw does ALL the effort. Patient does none of the effort to complete the activity. Or, the assistance of 2 or more helpers is required for the patient to complete the activity. If activity was not attempted, code reason: 7-Patient Refused. 9-Not Applicable-not attempted and the patient did not perform the activity before the current illness, exacerbation or injury. 10-Not Attempted due to Environmental Limitations-(lack of equipment, weather restraints, etc.). 88-Not Attempted due to Medical Conditions or Safety Concerns. Sit to Lying (QC): 3 Sit to Stand (QC): 1 max assist TRF via sit to stand from w/c to bed, sitting balance min assist, mod assist sit to supine Exercises Supine Ex: Ankle pumps, Rolling, Heel Slides, Short Arc Quads, Straight leg raise, Hip abd/add Supine Reps: 10 (all assisted) Seated Therapy Exercises: Long arc quads Seated Reps: 5 Treatments co Rx OT for above as well as hygiene w/c level at bthrm sink, feeding with max assist Assessment Current Status: Good Progress pleasant and gives full effort, communication issues, will work on finding a few carrasco words in Sammar[place] PT Mcc Goals Mcc Goals Roll Left & Right (QC): 4 Sit to Lying (QC): 4 Lying-Sitting on Side/Bed(QC): 4 Sit to Stand (QC): 3 Chair/Hns-od-Ryeep Xfer(QC): 3 Toilet Transfer (QC): 3 Car Transfer (QC): 3 Does the Patient Walk: No and Walking Goal NOT indicated Walk 10 feet (QC): 88 Walk 50ft with 2 Turns (QC): 88 Walk 150 ft (QC): 88 Walking 10ft on Uneven Surface: 88 1 Step (curb) (QC): 88 4 Steps (QC): 88 12 Steps (QC): 88 Picking up an Object (QC): 3 Does the Pt use WC or Scooter?: Yes Wheel 50 feet with 2 turns (QC: 3 Type: Manual Wheel 150 feet: 3 Type: Manual PT Plan Treatment/Plan Treatment Plan: Continue Plan of Care Treatment Plan: Bed Mobility, Education, Functional Activity Sara, Functional Strength, Group Therapy, Safety, Therapeutic Exercise, Transfers Treatment Duration: Sep 13, 2021 Frequency: At least 5 of 7 days/Wk (IRF) Estimated Hrs Per Day: 1.5 hours per day Patient and/or Family Agrees t: Yes Safety Risks/Education Patient Education: Transfer Techniques, Correct Positioning, Disease Process, Safety Issues Teaching Recipient: Patient Teaching Methods: Demonstration, Discussion Response to Teaching: Verbalize Understanding, Reinforcement Needed *language rikkirier Time/GCodes Time In: 1415 Time Out: 1445 Total Billed Treatment Time: 30 Total Billed Treatment 1,FA30m,(30m co Rx w OT) LILIAN HARRISON S[employer] S[employer] PR[employer]ING RACKER Sep 01, 2021 14:59
[2021-09-01] MEDS ORDERED: CHLORASEPTIC LOZENGE MM PRN (15:15)
[2021-09-01] MEDS ORDERED: BISACODYL 5 MG (DULCOLAX) TABLET PO PRN (15:15)
[2021-09-01] MEDS ORDERED: cloNIDine 0.1 MG (CATAPRES) TAB PO PRN (15:15)
[2021-09-01] MEDS ORDERED: amLODIPine 5 MG (NORVASC) TAB PO NR (15:15)
[2021-09-01] MEDS: inSUlin ASPART (NovoLOG) 1 UNIT/0.01 ML (CHARGE PER UNIT) SC SCH ×3 (17:34→21:22)
[2021-09-01 18:51] VITALS: BP 114/63
[2021-09-01] MEDS: ONDANSETRON 4 MG (ZOFRAN) ORAL DISSOLVE TAB PO PRN (21:04)
[2021-09-01] MEDS: DOCUSATE SODIUM 100 MG (COLACE) CAP PO SCH (21:20)
[2021-09-01] MEDS: SENNA W/DOCUSATE (SENOKOT S) TABLET PO SCH (21:21)
[2021-09-01] MEDS: polyethylene glycoL POWDER 17 GM (MIRALAX) PACK PO SCH (21:21)
[2021-09-01] MEDS: meTOprolol TARTRATE 25 MG (LOPRESSOR) TABLET PO SCH (22:37)
[2021-09-01] MEDS: ROSUVASTATIN 20 MG (CRESTOR) TABLET PO SCH (22:48)
[2021-09-02] MEDS: inSUlin ASPART (NovoLOG) 1 UNIT/0.01 ML (CHARGE PER UNIT) SC SCH ×5 (05:46→20:29)
--- NOTE | 2021-09-02 05:53 | PM&R Progress Note ---
Subjective HPI/CC On Admission Date Seen by Provider: Sep 02, 2021 Time Seen by Provider: 12:00 Subjective/Events-last exam 09/02/2021: Pt settling in well Holding all insulin due to hypoglycemia Had emesis last night Fed himself a bit today Keeping aguilar in for retention Review of Systems General: Fatigue, Malaise Neurological: Weakness Objective Exam Vital Signs Vital Signs Date Time Temp Pulse Resp B/P (MAP) Pulse Ox O2 Delivery O2 Flow Rate FiO2 09/02/21 20:20 Room Air 09/02/21 19:59 36.8 62 18 120/70 (87) 97 Capillary Refill : General Appearance: No Apparent Distress, WD/WN, Chronically ill, Obese HEENT: PERRL/EOMI, Normal ENT Inspection, Pharynx Normal Neck: Full Range of Motion, Normal Inspection, Non Tender, Supple, Carotid Bruit Respiratory: Chest Non Tender, Lungs Clear, Normal Breath Sounds, No Accessory Muscle Use, No Respiratory Distress Cardiovascular: Regular Rate, Rhythm, No Edema, No Gallop, No JVD, No Murmur, Normal Peripheral Pulses Gastrointestinal: Normal Bowel Sounds, No Organomegaly, No Pulsatile Mass, Non Tender, Soft Back: Normal Inspection, No CVA Tenderness, No Vertebral Tenderness, Decreased Range of Motion (Neck) Extremity: Normal Capillary Refill, Normal Inspection, Normal Range of Motion, Non Tender, No Calf Tenderness, No Pedal Edema Neurologic/Psychiatric: Alert, Oriented x3, Normal Mood/Affect, Abnormal Gait, Motor Weakness (All extremities, right arm and hand 3/5, left arm and hand 2/5) Skin: Normal Color, Warm/Dry Lymphatic: No Adenopathy Results/Procedures Lab Patient resulted labs reviewed. FIM Transfers Therapy Code Descriptions/Definitions Functional [place]pie Measure: 0=Not Assessed/NA 4=Minimal Assistance 1=Total Assistance 5=Supervision or Setup 2=Maximal Assistance 6=Modified Gillespie 3=Moderate Assistance 7=Complete IndependenceSCALE: Activities may be completed with or without assistive devices. 6-Wnrquuhexj-idaovdj completes the activity by him/herself with no assistance from a helper. 5-Set-up or Clean-up Assistance-helper sets up or cleans up; patient completes activity. [place] assists only prior to or following the activity. 4-Supervision or Touching Assistance-helper provides verbal cues and/or touching/steadying and/or contact guard assistance as patient completes activity. Assistance may be provided throughout the activity or intermittently. 3-Partial/Moderate Assistance-helper does LESS THAN HALF the effort. [place] lifts, holds or supports trunk or limbs, but provides less than half the effort. 2-Substantial/Maximal Assistance-helper does MORE THAN HALF the effort. [place] lifts or holds trunk or limbs and provides more than half the effort. 2-Qyqaemnaa-akjjda does ALL the effort. Patient does none of the effort to complete the activity. Or, the assistance of 2 or more helpers is required for the patient to complete the activity. If activity was not attempted, code reason: 7-Patient Refused. 9-Not Applicable-not attempted and the patient did not perform the activity before the current illness, exacerbation or injury. 10-Not Attempted due to Environmental Limitations-(lack of equipment, weather restraints, etc.). 88-Not Attempted due to Medical Conditions or Safety Concerns. Roll Left to Right (QC): 3 Sit to Lying (QC): 3 Sit to Stand (QC): 1 Chair/Kqs-lz-Ogfpm Xfer(QC): 1 Car Transfer (QC): 88 Gait Training Walk 10 feet (QC): 88 Walk 50 ft with 2 Turns(QC): 88 Walk 150 ft (QC): 88 Walking 10ft/uneven surface-QC: 88 Wheelchair Training Wheel 50 ft with 2 turns (QC): 88 Wheel 150 ft (QC): 88 Stair Training 1 Step (curb) (QC): 88 4 Steps (QC): 88 12 Steps (QC): 88 Balance Picking up an Object (QC): 88 ADL-Treatment Eating (QC): 2 (Pt required max A with eating lunch due to decreased coordination) Oral Hygiene (QC): 3 (Min A) Shower/Bathe Self (QC): 1 (Per clincial judgment, dependent) Upper Body Dressing (QC): 2 (Per clinical judgment.) Lower Body Dressing (QC): 1 (assist all parts, and use of sit to stand lift.) On/Off Footwear (QC): 1 (total assist gripper socks.) Toileting Hygiene (QC): 1 (total assist at bed level.) Assessment/Plan Assessment and Plan Assess & Plan/Chief Complaint Assessment: 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
--- NOTE | 2021-09-02 05:53 | Individualized Plan of Care ---
Individualized Plan of Care Rehab Nursing IPOC Order Admission Date Sep 01, 2021 at 12:56 Current Orders Orders Admission Order(Inpt,Obs,Sdc) (09/01/21 11:29) Vital Signs: Per Unit Policy ( (09/01/21 11:29) Kirill [place] (09/01/21 11:29) Sequential Compression Device (09/01/21 11:29) Real Estate Assistant-Inpt Rehab Con (09/01/21 11:29) Rehab Nursing Orders-Ipoc (09/01/21 11:29) Physical Therapy Rehab Orders (09/01/21 11:29) Occupational Therapy Rehab Ord (09/01/21 11:29) Speech Therapy Rehab Orders (09/01/21 11:29) Cbc With Automated Diff (09/02/21 06:00) Comprehensive Metabolic Panel (09/02/21 06:00) Precautions (Aru) (09/01/21 11:29) Weekly Weight WEEK (09/01/21 11:29) Rehab-Intensity Of Therapy (09/01/21 11:29) Initiate Admission Nursing Pro .admission (09/01/21 11:29) Alprazolam Tablet (Xanax Tablet) (09/01/21 11:30) Calcium Carbonate Chew Tablet (Antacid C (09/01/21 11:30) Diphenhydramine Tablet (Benadryl Tablet) (09/01/21 11:30) Docusate Sodium Capsule (Colace Capsule) (09/01/21 21:00) Docusate Sodium Capsule (Colace Capsule) (09/01/21 11:30) Bisacodyl Suppository (Dulcolax Supposit (09/01/21 11:30) Lactulose Oral Solution (Enulose Oral So (09/01/21 11:30) Na Phos/Na Biphos Enema (Fleet Enema Bar (09/01/21 11:30) Guaifenesin/Codeine Syrup (Robitussin Ac (09/01/21 11:30) Loperamide Tablet (Imodium Tablet) (09/01/21 11:30) Melatonin Tablet (Melatonin Tablet) (09/01/21 11:30) Polyethylene Glycol Powder Pkt (Miralax (09/01/21 21:00) Ondansetron Oral Dissolve Tab (Zofran (09/01/21 11:30) Senna S Tablet (Senokot S Tablet) (09/01/21 21:00) Acetaminophen Tablet/Caplet (Tylenol T (09/01/21 11:30) Code/Resuscitation (09/01/21 11:29) Sequential Compression Device ONCE (09/01/21 11:29) Initiate Admission Nursing Pro .admission (09/01/21 11:29) Transfer - Bed/Room/Location (09/01/21 13:18) Patient Visit (09/01/21 ) Functional Activities, Ea 15 (09/01/21 ) Benzocaine/Menthol Lozenges (Chlorasepti (09/01/21 15:15) Bisacodyl Tablet (Dulcolax Tablet) (09/01/21 15:15) Metoprolol Tartrate (Ir) Tab (Lopressor (09/01/21 21:00) Oxycodone Immediate Rel Tablet (Oxyir Ta (09/01/21 15:15) Rosuvastatin Tablet (Crestor Tablet) (09/01/21 21:00) Accucheck Achs ACHS (09/01/21 15:12) Insulin Aspart (Novolog) (Novolog (Charg (09/01/21 16:00) Insulin Determir (Per Unit) (Levemir (Pe (09/01/21 21:00) Insulin Aspart (Novolog) (Novolog (Charg (09/01/21 17:00) Amlodipine Tablet (Norvasc Tablet) (09/01/21 15:15) Amlodipine Tablet (Norvasc Tablet) (09/02/21 09:00) Clonidine Tablet (Catapres Tablet) (09/01/21 15:15) Patient Visit (09/01/21 ) Pt Eval Moderate Complexity (09/01/21 ) Functional Activities, Ea 15 (09/01/21 ) Cho 60g/M 1snack (16-2000 Yared) (09/01/21 Dinner) Insulin Determir (Per Unit) (Levemir (Pe (09/02/21 09:00) Patient Visit (09/02/21 ) Speech Sound Lang Comp (09/02/21 ) Patient Visit (09/02/21 ) Functional Activities, Ea 15 (09/02/21 ) Rehab Nursing Orders: Ongoing Assess. of Cognitive Status, Ongoing Assess. of Function Status, Bladder Management, Bladder Scan, Bladder Training, Bowel Management, Bowel Training, Disease Management & Educaiton, DVT Prophylaxis, Fall Prevention, Fluid/Electrolyte/Nutrition Mgmt, Infection Prevention, Medication Management & Education, Management of Risks & Complications, Management of Skin Intergrity, Nutrition Management, Pain Management, Patient/Family Support, Safety Management, Wound Management Intensity of Therapy to be met Patient to be seen: Min.3h per day/5 of 7d PT IPOC Problem List: Activity Tolerance, Functional Strength, Safety, Balance, Gait, Transfer, Bed Mobility, ROM Treatment Plan: Continue Plan of Care Bed Mobility, Education, Functional Activity Sara, Functional Strength, Group Therapy, Gait, Safety, Therapeutic Exercise, Transfers Treatment Duration: Sep 22, 2021 Frequency: At least 5 of 7 days/Wk (IRF) Estimated Hrs Per Day: 1.5 hours per day OT IPOC Problems: Decreased Activ Tolerance, Decreased UE Strength, Dependent Transfers, Impaired Bed Mobility, Impaired Coordination, Impaired Funct Balance, Impaired I ADL's, Impaired Self-Care Skills, Restricted Funct UE ROM OT Treatment, Training and Edu: Yes Plan of Care: ADL Retraining, Functional Mobility, Group Exercise/Act as Ind, UE Funct Exercise/Act, UE Neuromus Re-Ed/Coord Treatment Duration: Oct 01, 2021 Frequency: At least 5 of 7 days/Wk (IRF) Estimated Hrs Per Day: 1.[address] IPOC Speech Therapy Treatment Plan: Discontinue ST Treatment Duration: Sep 02, 2021 Frequency: Modified Program (IRF) Estimated Hrs Per Day: Other Real Estate Assistant/Case Mgmt Real Estate Assistant/Case Managemen: Discharge Planning Dietitian/Pipe Smoking Machine Operator Dietitian/Pipe Smoking Machine Operator to monitor nutritional status and make changes and/or recommendations as needed and work with speech pathology on dietary upgrades as the occur. Physician IPOC Medical Issues being managed closely and that require the 24 hour availability of a physician: Recent cervical spinal cord contusion with surgical release with diabetes and hypertension and urinary retention will require close monitoring for any quadriplegia risks Medical Issues: Bowel/Bladder Function, DVT Prophylaxis, Falls Precautions, Fluid/Electrolyte/Nutrition Balance, Infection Protection, Pain Management, Wound Care Brief Synthesis of Preadmission Screen, Post-Admission Evaluation, and Therapy Evaluations: PT and OT will focus on regaining function with use of assistive devices in order to increase independence to return home with spouse Medical Prognosis: Fair Anticipated Length of Stay: 14 days SHAYNE JAMES DO Sep 02, 2021 05:53
[2021-09-02 06:04] LABS: BASOPHILS % (AUTO) 0 % (0-10); EOSINOPHILS # (AUTO) 0.5 10^3/uL (0.0-0.3); EOSINOPHILS % (AUTO) 6 % (0-10); HEMATOCRIT 31 % (40-54); HEMOGLOBIN 10.3 g/dL (13.3-17.7); LYMPHOCYTES # (AUTO) 1.3 10^3/uL (1.0-4.0); LYMPHOCYTES % (AUTO) 14 % (12-44); MEAN CORPUSCULAR HEMOGLOBIN 29 pg (25-34); MEAN CORPUSCULAR HGB CONC 34 g/dL (32-36); MEAN CORPUSCULAR VOLUME 86 fL (80-99); MEAN PLATELET VOLUME 9.4 fL (9.0-12.2); MONOCYTES # (AUTO) 0.7 10^3/uL (0.0-1.0); MONOCYTES % (AUTO) 7 % (0-12); NEUTROPHILS # (AUTO) 6.8 10^3/uL (1.8-7.8); NEUTROPHILS % (AUTO) 72 % (42-75); PLATELET COUNT 174 10^3/uL (130-400); WHITE BLOOD COUNT 9.4 10^3/uL (4.3-11.0)
[2021-09-02 06:27] LABS: ALBUMIN 2.4 GM/DL (3.2-4.5); POTASSIUM 3.9 MMOL/L (3.6-5.0)
[2021-09-02 06:28] LABS: CALCIUM 8.2 MG/DL (8.5-10.1)
[2021-09-02 06:29] LABS: TOTAL PROTEIN 5.3 GM/DL (6.4-8.2)
[2021-09-02 06:31] LABS: BILIRUBIN,TOTAL 0.5 MG/DL (0.1-1.0)
[2021-09-02 06:33] LABS: CREATININE SERUM 0.82 MG/DL (0.60-1.30)
[2021-09-02 07:31] VITALS: BP 157/84
[2021-09-02] MEDS: amLODIPine 5 MG (NORVASC) TAB PO SCH (07:40)
[2021-09-02] MEDS: meTOprolol TARTRATE 25 MG (LOPRESSOR) TABLET PO SCH ×2 (07:40→20:19)
--- NOTE | 2021-09-02 09:00 | Physical Therapy Daily Note ---
PT Daily Note-Current Subjective Patient in bed pre tx, agrees to PT, has unrated pain in left shoulder. Will be co-treating with OT due to poor patient mobility, strength, endurance, severe debility, coordinate UE and LE during activity, safety and reduce risk of falls. Appearance Patient in bed post tx with nurse call, phone, tray, all needs met. Mental Status Patient Orientation: Person, Unable to Assess Attachments: Tyson Catheter cervical collar Transfers SCALE: Activities may be completed with or without assistive devices. 5-Rliolepaaz-yuhbjqm completes the activity by him/herself with no assistance from a helper. 5-Set-up or Clean-up Assistance-helper sets up or cleans up; patient completes activity. [place] assists only prior to or following the activity. 4-Supervision or Touching Assistance-helper provides verbal cues and/or touching/steadying and/or contact guard assistance as patient completes activity. Assistance may be provided throughout the activity or intermittently. 3-Partial/Moderate Assistance-helper does LESS THAN HALF the effort. [place] lifts, holds or supports trunk or limbs, but provides less than half the effort. 2-Substantial/Maximal Assistance-helper does MORE THAN HALF the effort. [place] lifts or holds trunk or limbs and provides more than half the effort. 6-Cmdjtqsff-yiilgh does ALL the effort. Patient does none of the effort to complete the activity. Or, the assistance of 2 or more helpers is required for the patient to complete the activity. If activity was not attempted, code reason: 7-Patient Refused. 9-Not Applicable-not attempted and the patient did not perform the activity before the current illness, exacerbation or injury. 10-Not Attempted due to Environmental Limitations-(lack of equipment, weather restraints, etc.). 88-Not Attempted due to Medical Conditions or Safety Concerns. Roll Left & Right (QC): 3 Sit to Lying (QC): 3 Lying to Sitting/Side of Bed(Q: 3 Sit to Stand (QC): 1 Chair/Ntk-gy-Jjrdg Xfer(QC): 1 Mod assist for supine <-> sit, dependent for standing, transfers with sit to stand machine Treatments Patient transferred to and taken to therapy gym, transferred to therapy table and performed UE reaching activity without trunk support, then stood with assist of 2 for 5 times with bilateral knee support, pushing up from a chair in front of him. Then transferred to and went back to his room, transferred to bed and layed down. PT performed bed mobility and transfers, standing, sitting balance and trunk control during UE activity, OT performed UE reaching activity, UE positioning and safety during activity, assist with transfers. Assessment Current Status: Poor Progress Patient can have either exaggerated knee flexion or extension during standing PT Short Term Goals Short Term Goals Time Frame: Sep 08, 2021 Roll Left & Right: 4 Sit to lyin Lying to sitting on side of be: 3 Sit to stand: 2 Chair/ign-ya-iahqi transfer: 2 PT Imaging Scheduler Goals Imaging Scheduler Goals PT Imaging Scheduler Goals Time Frame: Sep 22, 2021 Roll Left & Right (QC): 4 Sit to Lying (QC): 4 Lying-Sitting on Side/Bed(QC): 4 Sit to Stand (QC): 3 Chair/Fxg-cs-Rmmzz Xfer(QC): 3 Toilet Transfer (QC): 3 Car Transfer (QC): 3 Does the Patient Walk: No and Walking Goal NOT indicated Walk 10 feet (QC): 88 Walk 50ft with 2 Turns (QC): 88 Walk 150 ft (QC): 88 Walking 10ft on Uneven Surface: 88 1 Step (curb) (QC): 88 4 Steps (QC): 88 12 Steps (QC): 88 Picking up an Object (QC): 3 Wheel 50 feet with 2 turns (QC: 3 Wheel 150 feet: 3 PT Plan Problem List Problem List: Activity Tolerance, Functional Strength, Safety, Balance, Gait, Transfer, Bed Mobility, ROM Treatment/Plan Treatment Plan: Continue Plan of Care Treatment Plan: Bed Mobility, Education, Functional Activity Sara, Functional Strength, Group Therapy, Gait, Safety, Therapeutic Exercise, Transfers Treatment Duration: Sep 22, 2021 Frequency: At least 5 of 7 days/Wk (IRF) Estimated Hrs Per Day: 1.5 hours per day Patient and/or Family Agrees t: Yes Safety Risks/Education Patient Education: Transfer Techniques, Correct Positioning, Safety Issues Teaching Recipient: Patient Teaching Methods: Demonstration, Discussion Response to Teaching: Reinforcement Needed Time/GCodes Time In: 0800 Time Out: 0900 Total Billed Treatment Time: 60 Total Billed Treatment 1 visit FA Gomez' VERONICA MONIQUE PT Sep 02, 2021 09:00
--- NOTE | 2021-09-02 09:04 | Occupational Ther Daily Note ---
OT Current Status-Daily Note Subjective Pt denies pain, but does complain of nausea towards end of session. RN reports patient produced emesis early this morning. Co-treat with PT due to need of 2 skilled clinicians to progress indep with adls and mobility Appearance Pt returned to supine in bed, all needs within reach. ADL-Treatment Therapy Code Descriptions/Definitions Functional [place] Measure: 0=Not Assessed/NA 4=Minimal Assistance 1=Total Assistance 5=Supervision or Setup 2=Maximal Assistance 6=Modified [place] 3=Moderate Assistance 7=Complete IndependenceSCALE: Activities may be completed with or without assistive devices. 5-Gdvpcfhefh-tgocrsk completes the activity by him/herself with no assistance fr om a helper. 5-Set-up or Clean-up Assistance-helper sets up or cleans up; patient completes activity. [place] assists only prior to or following the activity. 4-Supervision or Touching Assistance-helper provides verbal cues and/or touching/steadying and/or contact guard assistance as patient completes activity. Assistance may be provided throughout the activity or intermittently. 3-Partial/Moderate Assistance-helper does LESS THAN HALF the effort. [place] lifts, holds or supports trunk or limbs, but provides less than half the effort. 2-Substantial/Maximal Assistance-helper does MORE THAN HALF the effort. [place] lifts or holds trunk or limbs and provides more than half the effort. 9-Sxjbuxtrw-iisoos does ALL the effort. Patient does none of the effort to complete the activity. Or, the assistance of 2 or more helpers is required for the patient to complete the activity. If activity was not attempted, code reason: 7-Patient Refused. 9-Not Applicable-not attempted and the patient did not perform the activity before the current illness, exacerbation or injury. 10-Not Attempted due to Environmental Limitations-(lack of equipment, weather restraints, etc.). 88-Not Attempted due to Medical Conditions or Safety Concerns. Eating (QC): 4 (with built up utencil) Lower Body Dressing (QC): 1 On/Off Footwear: 1 Toileting Hygiene (QC): 1 Toilet Transfer (QC): 1 Supine>sit: Mod A. Fair sitting balance edge of bed. Cues for improved posture and feet supported on floor. Dependent transfer with use of sit<>stand machine. Other Treatment Seated EOM, pt participated in seated dynamic activity with goal to promote increased sitting balance, posture, endurance, UE functional reaching, grasping/pinching, releasing, and crossing midline. Intermittent min a for megan ce when reaching forward or across midline. Initially HOHA required to extend fingers. With several reps, pt able to extend fingers with verbal cues only. Cues for opening hand/grasping, and releasing required. Pt also performed tip pinch with thumb/ index and thumb/middle finger when picking up dice. Extra time to position and initiate pinch but good ability to maintain and release into cup. Several reps performed. Pt fatigues easily and requires several rest breaks during activity OT also provided pt with a built up handle for eating. He was able to demonstrate ability to grasp/hold utensil and bring to mouth (without food). OT to continue to assess during meal time. Education OT Patient Education: Correct positioning, Energy conservation, Modified ADL techniques, Purpose of tx/functional activities, Rehab process, Safety issues, Transfer techniques, Use of adapted equipment Teaching Recipient: Patient Teaching Methods: Demonstration, Discussion Response to Teaching: Verbalize Understanding, Return Demonstration, Reinforcement Needed OT Short Term Goals Short Term Goals Time Frame: Sep 22, 2021 Toileting hygiene: 2 Shower/bathe self: 2 Upper body dressin Lower body dressin Putting on/taking off footwear: 3 OT Technical Service Engineer Goals Technical Service Engineer Goals Time Frame: Oct 01, 2021 Eating (QC): 5 Oral Hygiene (QC): 6 Toileting Hygiene (QC): 4 Shower/Bathe Self (QC): 4 Upper Body Dressing (QC): 5 Lower Body Dressing (QC): 4 On/Off Footwear (QC): 4 Additional Goals: 1-Demonstrate ADL Tasks, 2-Verbalize Understanding, 3- ImproveStrength/Sara 1=Demonstrate adherence to instructed precautions during ADL tasks. 2=Patient will verbalize/demonstrate understanding of assistive devices/m odifications for ADL. 3=Patient will improve strength/tolerance for activity to enable patient to perform ADL's. OT Education/Plan Problem List/Assessment Assessment: Decreased Activ Tolerance, Decreased UE Strength, Dependent Transfers, Impaired Bed Mobility, Impaired Coordination, Impaired Funct Balance, Impaired I ADL's, Impaired Self-Care Skills, Restricted Funct UE ROM Discharge Recommendations Plan/Recommendations: Continue POC Treatment Plan/Plan of Care Treatment,Training & Education: Yes Patient would benefit from OT for education, treatment and training to promote independence in ADL's, mobility, safety and/or upper extremity function for ADL's. Plan of Care: ADL Retraining, Functional Mobility, Group Exercise/Act as Ind, UE Funct Exercise/Act, UE Neuromus Re-Ed/Coord Treatment Duration: Oct 01, 2021 Frequency: At least 5 of 7 days/Wk (IRF) Estimated Hrs Per Day: 1.5 hours per day Agreement: Yes Rehab Potential: Fair Time/GCodes Start Time: 08:00 Stop Time: 09:00 Total Time Billed (hr/min): 60 Billed Treatment Time 1 visit ADL (15 min) FA x3 (45 min) Nisreen Lowe OT Sep 02, 2021 09:04
[2021-09-02] MEDS: polyethylene glycoL POWDER 17 GM (MIRALAX) PACK PO SCH ×2 (09:30→20:18)
[2021-09-02] MEDS: DOCUSATE SODIUM 100 MG (COLACE) CAP PO SCH ×2 (09:30→20:18)
[2021-09-02] MEDS: SENNA W/DOCUSATE (SENOKOT S) TABLET PO SCH ×2 (09:31→20:19)
--- NOTE | 2021-09-02 11:09 | ST Cognitive Linguistic Eval ---
Speech Evaluation-General Medical Diagnosis Cervical Myelopathy Onset Date: Aug 30, 2021 Therapy Diagnosis Therapy Diagnosis: Suspected Intact Cognitive Linguistic Skills Precautions Precautions: Fall Precautions/Isolations: Standard Precautions Referral Referring Physician: Dr. Ashley Bell Reason for Referral: Evaluation/Treatment Medical History Pertinent Medical History: CVA, DM, HTN Current History The patient is a 41 year old male from the [facility] with a past medical history of high cholesterol, HTN, spinal cord injury, stroke, and diabetes, who presents from [facility] following an urgent cervical spine stenosis decompression. Reviewed History: Yes Social History Current Living Status: Spouse Speech PLF-Current Status Prior Level of Function The patient's prior level of speech, language, and cognitive function is unknown to this clinician. The patient does report he does not have current concerns regarding his language, speech, or cognition and is able to communicate fluently. Subjective The patient was lying in bed, sleeping upon entrance. The patient woke appropriately to a verbal greeting from the clinician. The clinician contacted furniture servicer services and provided translation for the patient via speaker phone throughout the cognitive linguistic evaluation. Prior to the evaluation, the clinician visited with the patient regarding his oropharyngeal swallowing ability. Per patient, he does not have any concerns with his swallowing ability however his appetite is reduced currently due to nausea. As the patient recently underwent a cervical procedure, pharyngeal edema could be present. If swallowing issues or s/s of suspected aspiration are present, please contact speech pathology. Language Eval: Auditory Comprehends Simple Yes/No Ques: Functional Indent/Objects Multiple [place]: Functional Follows 1-Step Commands: Functional Language Eval: Verbal Language Completes Spontaneous Greeting: Functional Produces Auto, Serial Info: Functional Requests Basic Needs: Functional Cognitive Patient Orientation The patient is oriented to self, location, month and year (independently). Objective Cognitive Domain Attention: WNL Objective Impression With the aid on the furniture servicer services, the patient was able to display basic expressive and receptive language skills. The patient denied changes to his speech, language, or cognition and verbalized comprehension to seek aid from speech pathology should difficulties arise throughout his stay. Speech Patient Assess Expression of Ideas/Wants: Exhibits (3) Understanding Verbal Content: Usually Understands (3) Brief Interview-Mental Status: No(pt is rarely/never understood) Repetition of Three Words: None (0) (The clinician believes the patient did not comprehend the repetition request regardless of a furniture servicer present. ) Temporal Orientation: Year: Correct (3) Temporal Orientation: Month: Accurate within 5 days(2) Temporal Orientation: Day: Correct (1) Recall : Wear to say "Sock": No, could not recall (0) Recall : Color: No, could not recall (0) Recall : Bed: No, could not recall (0) Memory/Recall Ability: That he or she is in a hsp/hsp unit Speech-Plan Treatment Plan Speech Therapy Treatment Plan: Discontinue ST Frequency: 1 time per week Estimated Hrs Per Day: .5 hour per day Rehab Potential: Fair Safety Risks/Education Teaching Recipient: Patient Teaching Methods: Discussion Response to Teaching: Verbalize Understanding Education Topics Provided: Plan of Care Time Speech Therapy Time In: 10:00 Speech Therapy Time Out: 10:30 Total Billed Time: 30 Billed Treatment Time 1JESSE ELIZABETH ST Sep 02, 2021 11:09
--- NOTE | 2021-09-02 13:33 | Occupational Ther Daily Note ---
OT Current Status-Daily Note Subjective Denies pain, agreeable to co-treat due to need of 2 skilled clinicians to progress indep with adls and mobility Appearance Pt returned to supine in bed, all needs within reach. ADL-Treatment Therapy Code Descriptions/Definitions Functional [place] Measure: 0=Not Assessed/NA 4=Minimal Assistance 1=Total Assistance 5=Supervision or Setup 2=Maximal Assistance 6=Modified [place] 3=Moderate Assistance 7=Complete IndependenceSCALE: Activities may be completed with or without assistive devices. 6-Gwtizmduzp-zghfowi completes the activity by him/herself with no assistance from a helper. 5-Set-up or Clean-up Assistance-helper sets up or cleans up; patient completes activity. [place] assists only prior to or following the activity. 4-Supervision or Touching Assistance-helper provides verbal cues and/or touching/steadying and/or contact guard assistance as patient completes activity. Assistance may be provided throughout the activity or intermittently. 3-Partial/Moderate Assistance-helper does LESS THAN HALF the effort. [place] lifts, holds or supports trunk or limbs, but provides less than half the effort. 2-Substantial/Maximal Assistance-helper does MORE THAN HALF the effort. [place] lifts or holds trunk or limbs and provides more than half the effort. 4-[place] does ALL the effort. Patient does none of the effort to complete the activity. Or, the assistance of 2 or more helpers is required for the patient to complete the activity. If activity was not attempted, code reason: 7-Patient Refused. 9-Not Applicable-not attempted and the patient did not perform the activity before the current illness, exacerbation or injury. 10-Not Attempted due to Environmental Limitations-(lack of equipment, weather restraints, etc.). 88-Not Attempted due to Medical Conditions or Safety Concerns. Oral Hygiene (QC): 3 Supine>sit: Mod A. Intermittent CGA-min a while sitting EOB. HOHA to maintain toothpaste container in left hand as R hand unscrewed cap. Assist to loosen cap due to weakness. L hand utilized as gross assist to stabilize brush as Right hand squeezed toothpaste. Cues/assist to position toothbrush (with built up handle) properly in R hand. Once positioned, pt able to bring to mouth and brush all quadrants without assist. Max A to return to supine. Dep to scoot to HOB Education OT Patient Education: Correct positioning, Modified ADL techniques, Progress toward Goal/Update tx plan, Purpose of tx/functional activities, Transfer techniques, Use of adapted equipment Teaching Recipient: Patient Teaching Methods: Demonstration, Discussion Response to Teaching: Return Demonstration, Reinforcement Needed OT Short Term Goals Short Term Goals Time Frame: Sep 22, 2021 Toileting hygiene: 2 Shower/bathe self: 2 Upper body dressin Lower body dressin Putting on/taking off footwear: 3 OT Fdc Goals Fdc Goals Time Frame: Oct 01, 2021 Eating (QC): 5 Oral Hygiene (QC): 6 Toileting Hygiene (QC): 4 Shower/Bathe Self (QC): 4 Upper Body Dressing (QC): 5 Lower Body Dressing (QC): 4 On/Off Footwear (QC): 4 Additional Goals: 1-Demonstrate ADL Tasks, 2-Verbalize Understanding, 3- ImproveStrength/Sara 1=Demonstrate adherence to instructed precautions during ADL tasks. 2=Patient will verbalize/demonstrate understanding of assistive devices/modifications for ADL. 3=Patient will improve strength/tolerance for activity to enable patient to perform ADL's. OT Education/Plan Problem List/Assessment Assessment: Decreased Activ Tolerance, Decreased Safety Aware, Decreased UE Strength, Dependent Transfers, Impaired Coordination, Impaired Funct Balance, Impaired I ADL's, Impaired Self-Care Skills, Restricted Funct UE ROM Discharge Recommendations Plan/Recommendations: Continue POC Treatment Plan/Plan of Care Treatment,Training & Education: Yes Patient would benefit from OT for education, treatment and training to promote independence in ADL's, mobility, safety and/or upper extremity function for ADL's. Plan of Care: ADL Retraining, Functional Mobility, Group Exercise/Act as Ind, UE Funct Exercise/Act, UE Neuromus Re-Ed/Coord Treatment Duration: Oct 01, 2021 Frequency: At least 5 of 7 days/Wk (IRF) Estimated Hrs Per Day: 1.5 hours per day Agreement: Yes Rehab Potential: Fair Time/GCodes Start Time: 13:15 Stop Time: 13:30 Total Time Billed (hr/min): 15 Billed Treatment Time 1 visit ADL Nisreen Lowe OT Sep 02, 2021 13:33
--- NOTE | 2021-09-02 14:03 | Physical Therapy Daily Note ---
PT Daily Note-Current Subjective Patient in bed pre tx, agrees to PT, voices no complaints of pain. Will be co- treating with OT due to poor patient mobility, strength, endurance, severe debility, coordinate UE and LE during activity, safety and reduce risk of falls. Appearance Patient in bed post tx with nurse call, phone, tray, all needs met. Mental Status Patient Orientation: Person, Unable to Assess Attachments: Tyson Catheter cervical collar Transfers SCALE: Activities may be completed with or without assistive devices. 6-Izypkzcqyt-kovmxbz completes the activity by him/herself with no assistance from a helper. 5-Set-up or Clean-up Assistance-helper sets up or cleans up; patient completes activity. [place] assists only prior to or following the activity. 4-Supervision or Touching Assistance-helper provides verbal cues and/or touching/steadying and/or contact guard assistance as patient completes activity. Assistance may be provided throughout the activity or intermittently. 3-Partial/Moderate Assistance-helper does LESS THAN HALF the effort. [place] lifts, holds or supports trunk or limbs, but provides less than half the effort. 2-Substantial/Maximal Assistance-helper does MORE THAN HALF the effort. [place] lifts or holds trunk or limbs and provides more than half the effort. 9-Yitudsfrf-wedpoi does ALL the effort. Patient does none of the effort to comp lete the activity. Or, the assistance of 2 or more helpers is required for the patient to complete the activity. If activity was not attempted, code reason: 7-Patient Refused. 9-Not Applicable-not attempted and the patient did not perform the activity before the current illness, exacerbation or injury. 10-Not Attempted due to Environmental Limitations-(lack of equipment, weather restraints, etc.). 88-Not Attempted due to Medical Conditions or Safety Concerns. Patient sits to the side of the bed with mod assist, needs assist to scoot forward, patient then brushes his teeth with OT while PT works on sitting balance and trunk strengthening, when done patient lays back down with mod assist, has significant extensor tone afterward, then he is able to bend his knees and assist scooting up in bed, but still takes assist of 2. Treatments see above Assessment Current Status: Poor Progress no change in mobility yet PT Short Term Goals Short Term Goals Time Frame: Sep 08, 2021 Roll Left & Right: 4 Sit to lyin Lying to sitting on side of be: 3 Sit to stand: 2 Chair/buc-de-lravi transfer: 2 PT Intermediate Goals Subassembly Supervisor Goals PT Intermediate Goals Time Frame: Sep 22, 2021 Roll Left & Right (QC): 4 Sit to Lying (QC): 4 Lying-Sitting on Side/Bed(QC): 4 Sit to Stand (QC): 3 Chair/Smf-ob-Cgmmh Xfer(QC): 3 Toilet Transfer (QC): 3 Car Transfer (QC): 3 Does the Patient Walk: No and Walking Goal NOT indicated Walk 10 feet (QC): 88 Walk 50ft with 2 Turns (QC): 88 Walk 150 ft (QC): 88 Walking 10ft on Uneven Surface: 88 1 Step (curb) (QC): 88 4 Steps (QC): 88 12 Steps (QC): 88 Picking up an Object (QC): 3 Wheel 50 feet with 2 turns (QC: 3 Wheel 150 feet: 3 PT Plan Problem List Problem List: Activity Tolerance, Functional Strength, Safety, Balance, Gait, Transfer, Bed Mobility, ROM Treatment/Plan Treatment Plan: Continue Plan of Care Treatment Plan: Bed Mobility, Education, Functional Activity Sara, Functional Strength, Group Therapy, Gait, Safety, Therapeutic Exercise, Transfers Treatment Duration: Sep 22, 2021 Frequency: At least 5 of 7 days/Wk (IRF) Estimated Hrs Per Day: 1.5 hours per day Patient and/or Family Agrees t: Yes Safety Risks/Education Patient Education: Correct Positioning, Safety Issues Teaching Recipient: Patient Teaching Methods: Demonstration, Discussion Response to Teaching: Reinforcement Needed Time/GCodes Time In: 1315 Time Out: 1330 Total Billed Treatment Time: 15 Total Billed Treatment 1 visit FA 15' co-treated for 15' VERONICA MONIQUE PT Sep 02, 2021 14:03
[2021-09-02 19:59] VITALS: BP 120/70
[2021-09-02] MEDS: ROSUVASTATIN 20 MG (CRESTOR) TABLET PO SCH (20:19)
[2021-09-03] MEDS: ONDANSETRON 4 MG (ZOFRAN) ORAL DISSOLVE TAB PO PRN ×2 (04:55→09:32)
--- NOTE | 2021-09-03 06:08 | PM&R Progress Note ---
Subjective HPI/CC On Admission Date Seen by Provider: Sep 03, 2021 Time Seen by Provider: 12:00 Subjective/Events-last exam 09/03/2021: Pt is doing well Took a shower but then he couldn't really get back in bed Had some emesis so we'll start Protonix 40 mg BID and Carafate Aguilar cath remains due to retention 09/02/2021: Pt settling in well Holding all insulin due to hypoglycemia Had emesis last night Fed himself a bit today Keeping aguilar in for retention Review of Systems General: Fatigue, Malaise Musculoskeletal: neck pain Objective Exam Vital Signs Vital Signs Date Time Temp Pulse Resp B/P (MAP) Pulse Ox O2 Delivery O2 Flow Rate FiO2 09/03/21 21:28 Room Air 09/03/21 20:00 36.6 74 16 164/88 (113) 100 Capillary Refill : General Appearance: No Apparent Distress, WD/WN, Chronically ill, Obese HEENT: PERRL/EOMI, Normal ENT Inspection, Pharynx Normal Neck: Full Range of Motion, Normal Inspection, Non Tender, Supple, Carotid Bruit Respiratory: Chest Non Tender, Lungs Clear, Normal Breath Sounds, No Accessory Muscle Use, No Respiratory Distress Cardiovascular: Regular Rate, Rhythm, No Edema, No Gallop, No JVD, No Murmur, Normal Peripheral Pulses Gastrointestinal: Normal Bowel Sounds, No Organomegaly, No Pulsatile Mass, Non Tender, Soft Back: Normal Inspection, No CVA Tenderness, No Vertebral Tenderness, Decreased Range of Motion (Neck) Extremity: Normal Capillary Refill, Normal Inspection, Normal Range of Motion, Non Tender, No Calf Tenderness, No Pedal Edema Neurologic/Psychiatric: Alert, Oriented x3, Normal Mood/Affect, Abnormal Gait, Motor Weakness (All extremities, right arm and hand 3/5, left arm and hand 2/5) Skin: Normal Color, Warm/Dry Lymphatic: No Adenopathy Results/Procedures Lab Patient resulted labs reviewed. FIM Transfers Therapy Code Descriptions/Definitions Functional [place] Measure: 0=Not Assessed/NA 4=Minimal Assistance 1=Total Assistance 5=Supervision or Setup 2=Maximal Assistance 6=Modified [place] 3=Moderate Assistance 7=Complete IndependenceSCALE: Activities may be completed with or without assistive devices. 8-Lkeftaxmzg-qozoucr completes the activity by him/herself with no assistance from a helper. 5-Set-up or Clean-up Assistance-helper sets up or cleans up; patient completes activity. [place] assists only prior to or following the activity. 4-Supervision or Touching Assistance-helper provides verbal cues and/or touching/steadying and/or contact guard assistance as patient completes activity. Assistance may be provided throughout the activity or intermittently. 3-Partial/Moderate Assistance-helper does LESS THAN HALF the effort. [place] lifts, holds or supports trunk or limbs, but provides less than half the effort. 2-Substantial/Maximal Assistance-helper does MORE THAN HALF the effort. [place] lifts or holds trunk or limbs and provides more than half the effort. 2-Pgkqhegtb-wurbbn does ALL the effort. Patient does none of the effort to complete the activity. Or, the assistance of 2 or more helpers is required for the patient to complete the activity. If activity was not attempted, code reason: 7-Patient Refused. 9-Not Applicable-not attempted and the patient did not perform the activity before the current illness, exacerbation or injury. 10-Not Attempted due to Environmental Limitations-(lack of equipment, weather restraints, etc.). 88-Not Attempted due to Medical Conditions or Safety Concerns. Roll Left to Right (QC): 3 Sit to Lying (QC): 3 Sit to Stand (QC): 1 Chair/Azt-hm-Qjkoj Xfer(QC): 1 Car Transfer (QC): 88 Gait Training Walk 10 feet (QC): 88 Walk 50 ft with 2 Turns(QC): 88 Walk 150 ft (QC): 88 Walking 10ft/uneven surface-QC: 88 Wheelchair Training Wheel 50 ft with 2 turns (QC): 88 Wheel 150 ft (QC): 88 Stair Training 1 Step (curb) (QC): 88 4 Steps (QC): 88 12 Steps (QC): 88 Balance Picking up an Object (QC): 88 ADL-Treatment Eating (QC): 4 (with built up utencil) Oral Hygiene (QC): 3 Shower/Bathe Self (QC): 1 (Per clincial judgment, dependent) Upper Body Dressing (QC): 2 (Per clinical judgment.) Lower Body Dressing (QC): 1 On/Off Footwear (QC): 1 Toileting Hygiene (QC): 1 Toilet Transfer (QC): 1 Assessment/Plan Assessment and Plan Assess & Plan/Chief Complaint Assessment: 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 Diabetes qbz-zi-fqspqsw Hypertension Hyperlipidemia Previous CVA with right-sided weakness Plan: Aggressive therapy Pain control Monitor bowel function Insulin 09/02/2021: Supportive care Aggressive therapy Hold insulin 09/03/2021: Supportive care Cervical spine collar Aguilar catheter (1) Cervical spine syndrome (2) Myoclonus (3) Type 2 diabetes mellitus without complication (4) Primary hypertension (5) Mixed hyperlipidemia (6) History of CVA with residual deficit (7) Right sided weakness (8) Cervical cord myelomalacia (9) Spinal cord contusion (10) Fall Status: Acute SHAYNE JAMES DO Sep 03, 2021 06:08
[2021-09-03] MEDS: inSUlin ASPART (NovoLOG) 1 UNIT/0.01 ML (CHARGE PER UNIT) SC SCH ×4 (06:20→21:23)
[2021-09-03 07:18] VITALS: BP 126/64
[2021-09-03] MEDS: meTOprolol TARTRATE 25 MG (LOPRESSOR) TABLET PO SCH ×2 (09:01→21:23)
[2021-09-03] MEDS: amLODIPine 5 MG (NORVASC) TAB PO SCH (09:01)
--- NOTE | 2021-09-03 09:01 | Physical Therapy Daily Note ---
PT Daily Note-Current Subjective Patient in bed pre tx, agrees to PT, has unrated pain in neck. Will be co- treating with OT due to poor patient mobility, strength, endurance, severe debility, coordinate UE and LE with activity, safety and reduce risk of falls. Appearance Patient in therapy gym post tx to continue with OT Mental Status Patient Orientation: Person, Unable to Assess Attachments: Tyson Catheter cervical collar Transfers SCALE: Activities may be completed with or without assistive devices. 9-Dcpikcnfvh-vgagrtk completes the activity by him/herself with no assistance from a helper. 5-Set-up or Clean-up Assistance-helper sets up or cleans up; patient completes activity. [place] assists only prior to or following the activity. 4-Supervision or Touching Assistance-helper provides verbal cues and/or touching/steadying and/or contact guard assistance as patient completes activity. Assistance may be provided throughout the activity or intermittently. 3-Partial/Moderate Assistance-helper does LESS THAN HALF the effort. [place] lifts, holds or supports trunk or limbs, but provides less than half the effort. 2-Substantial/Maximal Assistance-helper does MORE THAN HALF the effort. [place] lifts or holds trunk or limbs and provides more than half the effort. 7-Dxakrqeaq-yxpobk does ALL the effort. Patient does none of the effort to complete the activity. Or, the assistance of 2 or more helpers is required for the patient to complete the activity. If activity was not attempted, code reason: 7-Patient Refused. 9-Not Applicable-not attempted and the patient did not perform the activity before the current illness, exacerbation or injury. 10-Not Attempted due to Environmental Limitations-(lack of equipment, weather restraints, etc.). 88-Not Attempted due to Medical Conditions or Safety Concerns. Roll Left & Right (QC): 3 Lying to Sitting/Side of Bed(Q: 3 Sit to Stand (QC): 3 Chair/Vie-ft-Jbbey Xfer(QC): 1 Patient supine to sit with mod assist and then transfer to shower chair via sit to stand machine, taken to shower, undress, shower, dress partially, stand with therapist assist mod assist to finish dressing and then rolled to therapy gym and into parallel bars. Patient stands and WC replaces shower chair, attempted to try taking steps but knees buckle. Patient stood another 2 times for about 1 min each time. Carefully blocked knees. Treatments PT performed bed mobility and transfers, standing during bathing/dressing, standing in parallel bars, OT performed shower, dressing, UE positioning and safety during activity Assessment Current Status: Poor Progress no change in mobility PT Short Term Goals Short Term Goals Time Frame: Sep 08, 2021 Roll Left & Right: 4 Sit to lyin Lying to sitting on side of be: 3 Sit to stand: 2 Chair/zuo-ql-apkiw transfer: 2 PT Mcfp Goals Mcfp Goals PT Director Of Rehabilitative Services Goals Time Frame: Sep 22, 2021 Roll Left & Right (QC): 4 Sit to Lying (QC): 4 Lying-Sitting on Side/Bed(QC): 4 Sit to Stand (QC): 3 Chair/Vkc-xh-Ifffe Xfer(QC): 3 Toilet Transfer (QC): 3 Car Transfer (QC): 3 Does the Patient Walk: No and Walking Goal NOT indicated Walk 10 feet (QC): 88 Walk 50ft with 2 Turns (QC): 88 Walk 150 ft (QC): 88 Walking 10ft on Uneven Surface: 88 1 Step (curb) (QC): 88 4 Steps (QC): 88 12 Steps (QC): 88 Picking up an Object (QC): 3 Does the Pt use WC or Scooter?: Yes Wheel 50 feet with 2 turns (QC: 3 Type: Manual Wheel 150 feet: 3 Type: Manual PT Plan Problem List Problem List: Activity Tolerance, Functional Strength, Safety, Balance, Gait, Transfer, Bed Mobility, ROM Treatment/Plan Treatment Plan: Continue Plan of Care Treatment Plan: Bed Mobility, Education, Functional Activity Sara, Functional Strength, Group Therapy, Safety, Therapeutic Exercise, Transfers Treatment Duration: Sep 13, 2021 Frequency: At least 5 of 7 days/Wk (IRF) Estimated Hrs Per Day: 1.5 hours per day Patient and/or Family Agrees t: Yes Safety Risks/Education Patient Education: Transfer Techniques, Correct Positioning, Safety Issues Teaching Recipient: Patient Teaching Methods: Demonstration, Discussion Response to Teaching: Reinforcement Needed Time/GCodes Time In: 0800 Time Out: 0900 Total Billed Treatment Time: 60 Total Billed Treatment 1 visit FA Gomez' VERONICA MONIQUE PT Sep 03, 2021 09:01
--- NOTE | 2021-09-03 09:20 | Occupational Ther Daily Note ---
OT Current Status-Daily Note Subjective Pt gestures that he has pain in the back of his neck, no numerical value given. Appearance Pt left sitting in w/c at end of session, RN notified. ADL-Treatment Therapy Code Descriptions/Definitions Functional [place] Measure: 0=Not Assessed/NA 4=Minimal Assistance 1=Total Assistance 5=Supervision or Setup 2=Maximal Assistance 6=Modified [place] 3=Moderate Assistance 7=Complete IndependenceSCALE: Activities may be completed with or without assistive devices. 7-Ybricexvso-lwnjhtw completes the activity by him/herself with no assistance from a helper. 5-Set-up or Clean-up Assistance-helper sets up or cleans up; patient completes activity. [place] assists only prior to or following the activity. 4-Supervision or Touching Assistance-helper provides verbal cues and/or touching/steadying and/or contact guard assistance as patient completes activity. Assistance may be provided throughout the activity or intermittently. 3-Partial/Moderate Assistance-helper does LESS THAN HALF the effort. [place] lifts, holds or supports trunk or limbs, but provides less than half the effort. 2-Substantial/Maximal Assistance-helper does MORE THAN HALF the effort. [place] lifts or holds trunk or limbs and provides more than half the effort. 4-Csriwcrkh-awefck does ALL the effort. Patient does none of the effort to c omplete the activity. Or, the assistance of 2 or more helpers is required for the patient to complete the activity. If activity was not attempted, code reason: 7-Patient Refused. 9-Not Applicable-not attempted and the patient did not perform the activity before the current illness, exacerbation or injury. 10-Not Attempted due to Environmental Limitations-(lack of equipment, weather restraints, etc.). 88-Not Attempted due to Medical Conditions or Safety Concerns. Shower/Bathe Self (QC): 2 Upper Body Dressing (QC): 2 Lower Body Dressing (QC): 1 On/Off Footwear: 1 Toileting Hygiene (QC): 1 Toilet Transfer (QC): 1 Shower performed; 100% in sitting (shower w/c). Pt having difficulty coordinating movements and often required assist to control the hand held water. Pt able to wash upper thighs, chest, front latonya area and bilateral forearms. He attempted to reach across midline to wash under bilateral arms but required assist to abduct arm and maintain washcloth in opposite hand. OT issued and instructed pt on use of LHS to wash below knees. Pt again demonstrates difficulty with coordinating movement and requires assist to control AE. Thoroughness needed for all body parts secondary to weakness and inability to generate decent pressure/force for thorough cleaning. Dependent to wash backside. Max a to don shirt as he required assist to thread BUE's and bring overhead. Pt was able to pull down in front, assist needed to pull down in back. Due to poor coordination, a speech language pathology assistant is not recommended at this time. Max a to lift/cross and maintain figure 4 position as pt attempted to thread foot into brief. Assist to reach forward and maintain directory compiler on brief with L hand. Mod-max a to stand x1 as second person performed clothing management. At times, pt will exhibit extension tone when standing and other times he will exhibit flexion. It is unpredictable what will occur when standing. Other Treatment Once returned to room, pt with significant amount of emesis. Assist to clean up secondary to inability to flex neck into bucket due due to neck brace. RN notified. Pt reports he has thrown up 3x this am. Education OT Patient Education: Correct positioning, Energy conservation, Modified ADL techniques, Progress toward Goal/Update tx plan, Purpose of tx/functional activities, Rehab process, Safety issues, Transfer techniques, Use of adapted equipment, W/C management Teaching Recipient: Patient Teaching Methods: Demonstration, Discussion Response to Teaching: Return Demonstration, Reinforcement Needed OT Short Term Goals Short Term Goals Time Frame: Sep 22, 2021 Toileting hygiene: 2 Shower/bathe self: 2 Upper body dressin Lower body dressin Putting on/taking off footwear: 3 OT [employer]isher Goals [employer]isher Goals Time Frame: Oct 01, 2021 Eating (QC): 5 Oral Hygiene (QC): 6 Toileting Hygiene (QC): 4 Shower/Bathe Self (QC): 4 Upper Body Dressing (QC): 5 Lower Body Dressing (QC): 4 On/Off Footwear (QC): 4 Additional Goals: 1-Demonstrate ADL Tasks, 2-Verbalize Understanding, 3- ImproveStrength/Sara 1=Demonstrate adherence to instructed precautions during ADL tasks. 2=Patient will verbalize/demonstrate understanding of assistive devices/modifications for ADL. 3=Patient will improve strength/tolerance for activity to enable patient to perform ADL's. OT Education/Plan Problem List/Assessment Assessment: Decreased Activ Tolerance, Decreased Safety Aware, Decreased UE Strength, Dependent Transfers, Impaired Bed Mobility, Impaired Coordination, Impaired Funct Balance, Impaired I ADL's, Impaired Self-Care Skills, Restricted Funct UE ROM Discharge Recommendations Plan/Recommendations: Continue POC Therapy Discharge Recommendati: Post Acute OT Treatment Plan/Plan of Care Treatment,Training & Education: Yes Patient would benefit from OT for education, treatment and training to promote independence in ADL's, mobility, safety and/or upper extremity function for ADL's. Plan of Care: ADL Retraining, Functional Mobility, Group Exercise/Act as Ind, UE Funct Exercise/Act, UE Neuromus Re-Ed/Coord Treatment Duration: Oct 01, 2021 Frequency: At least 5 of 7 days/Wk (IRF) Estimated Hrs Per Day: 1.5 hours per day Agreement: Yes Rehab Potential: Fair Time/GCodes Start Time: 08:00 Stop Time: 09:15 Total Time Billed (hr/min): 75 Billed Treatment Time 1 visit ADL x4 (55 min) FA (20 min) Nisreen Lowe OT Sep 03, 2021 09:20
[2021-09-03] MEDS: DOCUSATE SODIUM 100 MG (COLACE) CAP PO SCH ×2 (09:32→21:27)
[2021-09-03] MEDS: polyethylene glycoL POWDER 17 GM (MIRALAX) PACK PO SCH ×2 (09:32→21:27)
[2021-09-03] MEDS: SENNA W/DOCUSATE (SENOKOT S) TABLET PO SCH ×2 (09:32→21:27)
--- NOTE | 2021-09-03 11:28 | Physical Therapy Daily Note ---
PT Daily Note-Current Subjective Patient in bed pre tx, agrees to PT, has no complaints of pain. Patient has the hiccups but also sounds like he could vomit at any moment but he never does during therapy. Appearance Patient in bed post tx with nurse call, phone, tray, all needs met. Mental Status Patient Orientation: Person, Unable to Assess Attachments: Tyson Catheter cervical collar Transfers SCALE: Activities may be completed with or without assistive devices. 2-Rvidrlrwvi-kaxuikp completes the activity by him/herself with no assistance from a helper. 5-Set-up or Clean-up Assistance-helper sets up or cleans up; patient completes activity. [place] assists only prior to or following the activity. 4-Supervision or Touching Assistance-helper provides verbal cues and/or touching/steadying and/or contact guard assistance as patient completes activity. Assistance may be provided throughout the activity or intermittently. 3-Partial/Moderate Assistance-helper does LESS THAN HALF the effort. [place] lifts, holds or supports trunk or limbs, but provides less than half the effort. 2-Substantial/Maximal Assistance-helper does MORE THAN HALF the effort. [place] lifts or holds trunk or limbs and provides more than half the effort. 1-Infemcbrv-mbofmo does ALL the effort. Patient does none of the effort to complete the activity. Or, the assistance of 2 or more helpers is required for the patient to complete the activity. If activity was not attempted, code reason: 7-Patient Refused. 9-Not Applicable-not attempted and the patient did not perform the activity before the current illness, exacerbation or injury. 10-Not Attempted due to Environmental Limitations-(lack of equipment, weather restraints, etc.). 88-Not Attempted due to Medical Conditions or Safety Concerns. Exercises Supine Ex: Ankle pumps, Quad Set, Glut sets, Heel Slides, Short Arc Quads, Straight leg raise, Hip abd/add Supine Reps: 20 BLE manual stretching Treatments LE strengthening and stretching Assessment Current Status: Poor Progress patient had increased extensor tone during ex PT Short Term Goals Short Term Goals Time Frame: Sep 08, 2021 Roll Left & Right: 4 Sit to lyin Lying to sitting on side of be: 3 Sit to stand: 2 Chair/hma-fv-qdlzo transfer: 2 PT Traveling Construction Superintendent Goals Halfway Goals PT Halfway Goals Time Frame: Sep 22, 2021 Roll Left & Right (QC): 4 Sit to Lying (QC): 4 Lying-Sitting on Side/Bed(QC): 4 Sit to Stand (QC): 3 Chair/Jcp-cx-Ouspl Xfer(QC): 3 Toilet Transfer (QC): 3 Car Transfer (QC): 3 Does the Patient Walk: No and Walking Goal NOT indicated Walk 10 feet (QC): 88 Walk 50ft with 2 Turns (QC): 88 Walk 150 ft (QC): 88 Walking 10ft on Uneven Surface: 88 1 Step (curb) (QC): 88 4 Steps (QC): 88 12 Steps (QC): 88 Picking up an Object (QC): 3 Does the Pt use WC or Scooter?: Yes Wheel 50 feet with 2 turns (QC: 3 Type: Manual Wheel 150 feet: 3 Type: Manual PT Plan Problem List Problem List: Activity Tolerance, Functional Strength, Safety, Balance, Gait, Transfer, Bed Mobility, ROM Treatment/Plan Treatment Plan: Continue Plan of Care Treatment Plan: Bed Mobility, Education, Functional Activity Sara, Functional Strength, Group Therapy, Safety, Therapeutic Exercise, Transfers Treatment Duration: Sep 13, 2021 Frequency: At least 5 of 7 days/Wk (IRF) Estimated Hrs Per Day: 1.5 hours per day Patient and/or Family Agrees t: Yes Safety Risks/Education Patient Education: Correct Positioning, Safety Issues Teaching Recipient: Patient Teaching Methods: Demonstration, Discussion Response to Teaching: Reinforcement Needed Time/GCodes Time In: 1100 Time Out: 1130 Total Billed Treatment Time: 30 Total Billed Treatment 1 visit EX 30' VERONICA MONIQUE PT Sep 03, 2021 11:27
[2021-09-03] MEDS: PANTOPRAZOLE 40 MG (PROTONIX) TAB PO SCH ×2 (13:30→21:23)
[2021-09-03] MEDS: SUCRALFATE 1 GM (CARAFATE) TAB PO SCH ×2 (15:42→21:23)
[2021-09-03 20:00] VITALS: BP 164/88
[2021-09-03] MEDS: ROSUVASTATIN 20 MG (CRESTOR) TABLET PO SCH (21:23)
[2021-09-04] MEDS: SUCRALFATE 1 GM (CARAFATE) TAB PO SCH ×4 (05:37→20:29)
[2021-09-04] MEDS: inSUlin ASPART (NovoLOG) 1 UNIT/0.01 ML (CHARGE PER UNIT) SC SCH ×4 (05:42→20:42)
--- NOTE | 2021-09-04 06:37 | PM&R Progress Note ---
Subjective HPI/CC On Admission Date Seen by Provider: Sep 04, 2021 Time Seen by Provider: 12:00 Subjective/Events-last exam 09/04/2021: Patient doing very well Requiring Pilar lift since he cannot use the sit to stand at this current time Moving his arms and hands better Blood sugar is a little bit elevated Blood pressure better Lovenox will be started tomorrow 09/03/2021: Pt is doing well Took a shower but then he couldn't really get back in bed Had some emesis so we'll start Protonix 40 mg BID and Carafate Aguilar cath remains due to retention 09/02/2021: Pt settling in well Holding all insulin due to hypoglycemia Had emesis last night Fed himself a bit today Keeping aguilar in for retention Review of Systems General: Fatigue, Malaise Neurological: Weakness, Incoordination Objective Exam Vital Signs Vital Signs Date Time Temp Pulse Resp B/P (MAP) Pulse Ox O2 Delivery O2 Flow Rate FiO2 09/04/21 20:43 Room Air 09/04/21 20:00 36.8 69 18 151/72 (98) 98 Capillary Refill : General Appearance: No Apparent Distress, WD/WN, Chronically ill, Obese HEENT: PERRL/EOMI, Normal ENT Inspection, Pharynx Normal Neck: Full Range of Motion, Normal Inspection, Non Tender, Supple, Carotid Bruit Respiratory: Chest Non Tender, Lungs Clear, Normal Breath Sounds, No Accessory Muscle Use, No Respiratory Distress Cardiovascular: Regular Rate, Rhythm, No Edema, No Gallop, No JVD, No Murmur, Normal Peripheral Pulses Gastrointestinal: Normal Bowel Sounds, No Organomegaly, No Pulsatile Mass, Non Tender, Soft Back: Normal Inspection, No CVA Tenderness, No Vertebral Tenderness, Decreased Range of Motion (Neck) Extremity: Normal Capillary Refill, Normal Inspection, Normal Range of Motion, Non Tender, No Calf Tenderness, No Pedal Edema Neurologic/Psychiatric: Alert, Oriented x3, Normal Mood/Affect, Abnormal Gait, Motor Weakness (All extremities, right arm and hand 3/5, left arm and hand 2/5) Skin: Normal Color, Warm/Dry Lymphatic: No Adenopathy Results/Procedures Lab Patient resulted labs reviewed. FIM Transfers Therapy Code Descriptions/Definitions Functional [place] Measure: 0=Not Assessed/NA 4=Minimal Assistance 1=Total Assistance 5=Supervision or Setup 2=Maximal Assistance 6=Modified [place] 3=Moderate Assistance 7=Complete IndependenceSCALE: Activities may be completed with or without assistive devices. 3-Ovfeyobmgy-cnhluoc completes the activity by him/herself with no assistance from a helper. 5-Set-up or Clean-up Assistance-helper sets up or cleans up; patient completes activity. [place] assists only prior to or following the activity. 4-Supervision or Touching Assistance-helper provides verbal cues and/or touching/steadying and/or contact guard assistance as patient completes activity. Assistance may be provided throughout the activity or intermittently. 3-Partial/Moderate Assistance-helper does LESS THAN HALF the effort. [place] lifts, holds or supports trunk or limbs, but provides less than half the effort. 2-Substantial/Maximal Assistance-helper does MORE THAN HALF the effort. [place] lifts or holds trunk or limbs and provides more than half the effort. 3-Ycgkttzuu-yszosd does ALL the effort. Patient does none of the effort to complete the activity. Or, the assistance of 2 or more helpers is required for the patient to complete the activity. If activity was not attempted, code reason: 7-Patient Refused. 9-Not Applicable-not attempted and the patient did not perform the activity before the current illness, exacerbation or injury. 10-Not Attempted due to Environmental Limitations-(lack of equipment, weather restraints, etc.). 88-Not Attempted due to Medical Conditions or Safety Concerns. Roll Left to Right (QC): 3 Sit to Lying (QC): 3 Sit to Stand (QC): 3 Chair/Jzi-rb-Iaege Xfer(QC): 1 Car Transfer (QC): 88 Gait Training Walk 10 feet (QC): 88 Walk 50 ft with 2 Turns(QC): 88 Walk 150 ft (QC): 88 Walking 10ft/uneven surface-QC: 88 Wheelchair Training Wheel 50 ft with 2 turns (QC): 88 Wheel 150 ft (QC): 88 Stair Training 1 Step (curb) (QC): 88 4 Steps (QC): 88 12 Steps (QC): 88 Balance Picking up an Object (QC): 88 ADL-Treatment Eating (QC): 4 (with built up utencil) Oral Hygiene (QC): 3 Shower/Bathe Self (QC): 2 Upper Body Dressing (QC): 2 Lower Body Dressing (QC): 1 On/Off Footwear (QC): 1 Toileting Hygiene (QC): 1 Toilet Transfer (QC): 1 Assessment/Plan Assessment and Plan Assess & Plan/Chief Complaint Assessment: 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 Diabetes ady-sh-hzkdnij Hypertension Hyperlipidemia Previous CVA with right-sided weakness Plan: Aggressive therapy Pain control Monitor bowel function Insulin 09/02/2021: Supportive care Aggressive therapy Hold insulin 09/03/2021: Supportive care Cervical spine collar Aguilar catheter 09/04/2021: Supportive care Cervical spine collar Aguilar catheter Pilar lift We'll start Lovenox tomorrow (1) Cervical spine syndrome (2) Myoclonus (3) Type 2 diabetes mellitus without complication (4) Primary hypertension (5) Mixed hyperlipidemia (6) History of CVA with residual deficit (7) Right sided weakness (8) Cervical cord myelomalacia (9) Spinal cord contusion (10) Fall Status: Acute SHAYNE JAMES DO Sep 04, 2021 06:36
[2021-09-04 07:15] VITALS: BP 127/67
[2021-09-04] MEDS: amLODIPine 5 MG (NORVASC) TAB PO SCH (08:27)
[2021-09-04] MEDS: PANTOPRAZOLE 40 MG (PROTONIX) TAB PO SCH ×2 (08:27→20:29)
[2021-09-04] MEDS: meTOprolol TARTRATE 25 MG (LOPRESSOR) TABLET PO SCH ×2 (08:27→20:29)
[2021-09-04] MEDS: polyethylene glycoL POWDER 17 GM (MIRALAX) PACK PO SCH ×2 (08:58→21:07)
[2021-09-04] MEDS: DOCUSATE SODIUM 100 MG (COLACE) CAP PO SCH ×2 (08:58→20:29)
[2021-09-04] MEDS: SENNA W/DOCUSATE (SENOKOT S) TABLET PO SCH ×2 (08:59→20:29)
--- NOTE | 2021-09-04 10:54 | Physical Therapy Daily Note ---
PT Daily Note-Current Subjective Pt. smiles and speaks some [place] to share the music he is listening to as well as ask where the regular therapist is. Pt. was shown via demo how the TRF pilar device inn his room would work for his TRF. Pt. agreeable to this TRF method Pain Location: No Pain Reported Appearance ext tone noted U&L extr with movement and rolling . Nurse present to assess pts skin on buttocks etc. Mental Status Patient Orientation: Normal For Age Attachments: Tyson Catheter Transfers SCALE: Activities may be completed with or without assistive devices. 6-Elgacogprn-pomqnrr completes the activity by him/herself with no assistance from a helper. 5-Set-up or Clean-up Assistance-helper sets up or cleans up; patient completes activity. [place] assists only prior to or following the activity. 4-Supervision or Touching Assistance-helper provides verbal cues and/or touching/steadying and/or contact guard assistance as patient completes activity. Assistance may be provided throughout the activity or intermittently. 3-Partial/Moderate Assistance-helper does LESS THAN HALF the effort. [place] lifts, holds or supports trunk or limbs, but provides less than half the effort. 2-Substantial/Maximal Assistance-helper does MORE THAN HALF the effort. [place] lifts or holds trunk or limbs and provides more than half the effort. 4-Tjtmwuqxd-umrziw does ALL the effort. Patient does none of the effort to complete the activity. Or, the assistance of 2 or more helpers is required for the patient to complete the activity. If activity was not attempted, code reason: 7-Patient Refused. 9-Not Applicable-not attempted and the patient did not perform the activity before the current illness, exacerbation or injury. 10-Not Attempted due to Environmental Limitations-(lack of equipment, weather restraints, etc.). 88-Not Attempted due to Medical Conditions or Safety Concerns. Roll Left & Right (QC): 1 Lying to Sitting/Side of Bed(Q: 1 Chair/Yqn-rk-Aorqp Xfer(QC): 1 overhead equipment Pilar TRF : pt. required max assist for rolling left to right to assemble lift sling, pt. was in good upright position for TRF bed to recliner, pt. was rolled prior to this for doffing of brief and cleaning as well as lotion applied and dressing per nurse, inflated cushion applied under pt in recliner as well as pillows for good positioning in recliner under LEs for heels floating and under arms for comfort, call diaz at hand , all needs met Exercises Supine Ex: Ankle pumps, Heel Slides, Hip abd/add Supine Reps: 5 Treatments see above Assessment Current Status: Fair Progress tolerated Rx well PT Short Term Goals Short Term Goals Time Frame: Sep 08, 2021 Roll Left & Right: 4 Sit to lyin Lying to sitting on side of be: 3 Sit to stand: 2 Chair/iyh-ja-tmglj transfer: 2 PT Senior Living Goals Biology Internship Goals PT Senior Living Goals Time Frame: Sep 22, 2021 Roll Left & Right (QC): 4 Sit to Lying (QC): 4 Lying-Sitting on Side/Bed(QC): 4 Sit to Stand (QC): 3 Chair/Ccy-vo-Sigis Xfer(QC): 3 Toilet Transfer (QC): 3 Car Transfer (QC): 3 Does the Patient Walk: No and Walking Goal NOT indicated Walk 10 feet (QC): 88 Walk 50ft with 2 Turns (QC): 88 Walk 150 ft (QC): 88 Walking 10ft on Uneven Surface: 88 1 Step (curb) (QC): 88 4 Steps (QC): 88 12 Steps (QC): 88 Picking up an Object (QC): 3 Does the Pt use WC or Scooter?: Yes Wheel 50 feet with 2 turns (QC: 3 Type: Manual Wheel 150 feet: 3 Type: Manual PT Plan Treatment/Plan Treatment Plan: Continue Plan of Care Treatment Plan: Bed Mobility, Education, Functional Activity Sara, Functional Strength, Group Therapy, Safety, Therapeutic Exercise, Transfers Treatment Duration: Sep 13, 2021 Frequency: At least 5 of 7 days/Wk (IRF) Estimated Hrs Per Day: 1.5 hours per day Patient and/or Family Agrees t: Yes Safety Risks/Education Patient Education: Correct Positioning, Disease Process Time/GCodes Time In: 1020 Time Out: 1040 Total Billed Treatment Time: 20 Total Billed Treatment 1,FA20m LILIAN HARRISON SHEET [employer] FOREMAN Sep 04, 2021 10:54
[2021-09-04 20:00] VITALS: BP 151/72
[2021-09-04] MEDS: ROSUVASTATIN 20 MG (CRESTOR) TABLET PO SCH (20:29)
[2021-09-05] MEDS: SUCRALFATE 1 GM (CARAFATE) TAB PO SCH ×4 (05:17→19:37)
[2021-09-05] MEDS: inSUlin ASPART (NovoLOG) 1 UNIT/0.01 ML (CHARGE PER UNIT) SC SCH ×4 (05:36→20:14)
[2021-09-05 07:06] VITALS: BP 137/66
[2021-09-05] MEDS: polyethylene glycoL POWDER 17 GM (MIRALAX) PACK PO SCH ×2 (07:32→19:22)
[2021-09-05] MEDS: SENNA W/DOCUSATE (SENOKOT S) TABLET PO SCH ×2 (07:32→19:22)
[2021-09-05] MEDS: PANTOPRAZOLE 40 MG (PROTONIX) TAB PO SCH ×2 (07:32→19:37)
[2021-09-05] MEDS: DOCUSATE SODIUM 100 MG (COLACE) CAP PO SCH ×2 (07:32→19:22)
[2021-09-05] MEDS: meTOprolol TARTRATE 25 MG (LOPRESSOR) TABLET PO SCH ×2 (07:32→19:37)
[2021-09-05] MEDS: amLODIPine 5 MG (NORVASC) TAB PO SCH (07:33)
[2021-09-05] MEDS: ENOXAPARIN 40 MG/0.4 ML (LOVENOX) SYR SC SCH (07:33)
--- NOTE | 2021-09-05 07:46 | PM&R Progress Note ---
Subjective HPI/CC On Admission Date Seen by Provider: Sep 05, 2021 Time Seen by Provider: 12:15 Subjective/Events-last exam 09/05/2021: Patient doing really well Requiring Pilar lift though Lovenox started today Blood sugars are variable 09/04/2021: Patient doing very well Requiring Pilar lift since he cannot use the sit to stand at this current time Moving his arms and hands better Blood sugar is a little bit elevated Blood pressure better Lovenox will be started tomorrow 09/03/2021: Pt is doing well Took a shower but then he couldn't really get back in bed Had some emesis so we'll start Protonix 40 mg BID and Carafate Aguilar cath remains due to retention 09/02/2021: Pt settling in well Holding all insulin due to hypoglycemia Had emesis last night Fed himself a bit today Keeping aguilar in for retention Review of Systems General: Fatigue, Malaise Neurological: Weakness, Incoordination Objective Exam Vital Signs Vital Signs Date Time Temp Pulse Resp B/P (MAP) Pulse Ox O2 Delivery O2 Flow Rate FiO2 09/05/21 08:59 Room Air 09/05/21 07:06 36.5 69 18 137/66 (89) 95 Capillary Refill : General Appearance: No Apparent Distress, WD/WN, Chronically ill, Obese HEENT: PERRL/EOMI, Normal ENT Inspection, Pharynx Normal Neck: Full Range of Motion, Normal Inspection, Non Tender, Supple, Carotid Bruit Respiratory: Chest Non Tender, Lungs Clear, Normal Breath Sounds, No Accessory Muscle Use, No Respiratory Distress Cardiovascular: Regular Rate, Rhythm, No Edema, No Gallop, No JVD, No Murmur, Normal Peripheral Pulses Gastrointestinal: Normal Bowel Sounds, No Organomegaly, No Pulsatile Mass, Non Tender, Soft Back: Normal Inspection, No CVA Tenderness, No Vertebral Tenderness, Decreased Range of Motion (Neck) Extremity: Normal Capillary Refill, Normal Inspection, Normal Range of Motion, Non Tender, No Calf Tenderness, No Pedal Edema Neurologic/Psychiatric: Alert, Oriented x3, Normal Mood/Affect, Abnormal Gait, Motor Weakness (All extremities, right arm and hand 3/5, left arm and hand 2/5) Skin: Normal Color, Warm/Dry Lymphatic: No Adenopathy Results/Procedures Lab Patient resulted labs reviewed. FIM Transfers Therapy Code Descriptions/Definitions Functional [place] Measure: 0=Not Assessed/NA 4=Minimal Assistance 1=Total Assistance 5=Supervision or Setup 2=Maximal Assistance 6=Modified [place] 3=Moderate Assistance 7=Complete IndependenceSCALE: Activities may be completed with or without assistive devices. 0-Xlgtneudzc-lffwbnd completes the activity by him/herself with no assistance from a helper. 5-Set-up or Clean-up Assistance-helper sets up or cleans up; patient completes activity. [place] assists only prior to or following the activity. 4-Supervision or Touching Assistance-helper provides verbal cues and/or touching/steadying and/or contact guard assistance as patient completes activity . Assistance may be provided throughout the activity or intermittently. 3-Partial/Moderate Assistance-helper does LESS THAN HALF the effort. [place] lifts, holds or supports trunk or limbs, but provides less than half the effort. 2-Substantial/Maximal Assistance-helper does MORE THAN HALF the effort. [place] lifts or holds trunk or limbs and provides more than half the effort. 5-Mwlsjqfqa-slnoru does ALL the effort. Patient does none of the effort to complete the activity. Or, the assistance of 2 or more helpers is required for the patient to complete the activity. If activity was not attempted, code reason: 7-Patient Refused. 9-Not Applicable-not attempted and the patient did not perform the activity before the current illness, exacerbation or injury. 10-Not Attempted due to Environmental Limitations-(lack of equipment, weather restraints, etc.). 88-Not Attempted due to Medical Conditions or Safety Concerns. Roll Left to Right (QC): 1 Sit to Lying (QC): 3 Sit to Stand (QC): 3 Chair/Med-my-Srjuf Xfer(QC): 1 Car Transfer (QC): 88 Gait Training Walk 10 feet (QC): 88 Walk 50 ft with 2 Turns(QC): 88 Walk 150 ft (QC): 88 Walking 10ft/uneven surface-QC: 88 Wheelchair Training Wheel 50 ft with 2 turns (QC): 88 Wheel 150 ft (QC): 88 Stair Training 1 Step (curb) (QC): 88 4 Steps (QC): 88 12 Steps (QC): 88 Balance Picking up an Object (QC): 88 ADL-Treatment Eating (QC): 4 (with built up utencil) Oral Hygiene (QC): 3 Shower/Bathe Self (QC): 2 Upper Body Dressing (QC): 2 Lower Body Dressing (QC): 1 On/Off Footwear (QC): 1 Toileting Hygiene (QC): 1 Toilet Transfer (QC): 1 Assessment/Plan Assessment and Plan Assess & Plan/Chief Complaint Assessment: 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 Diabetes fly-ob-veepple Hypertension Hyperlipidemia Previous CVA with right-sided weakness Plan: Aggressive therapy Pain control Monitor bowel function Insulin 09/02/2021: Supportive care Aggressive therapy Hold insulin 09/03/2021: Supportive care Cervical spine collar Aguilar catheter 09/04/2021: Supportive care Cervical spine collar Aguilar catheter Pilar lift We'll start Lovenox tomorrow 09/05/2021: Supportive care Lovenox Maintain Aguilar (1) Cervical spine syndrome (2) Myoclonus (3) Type 2 diabetes mellitus without complication (4) Primary hypertension (5) Mixed hyperlipidemia (6) History of CVA with residual deficit (7) Right sided weakness (8) Cervical cord myelomalacia (9) Spinal cord contusion (10) Fall Status: Acute SHAYNE JAMES DO Sep 05, 2021 07:46
[2021-09-05] MEDS: ROSUVASTATIN 20 MG (CRESTOR) TABLET PO SCH (19:37)
[2021-09-05 19:51] VITALS: BP 137/66
[2021-09-06] MEDS: inSUlin ASPART (NovoLOG) 1 UNIT/0.01 ML (CHARGE PER UNIT) SC SCH ×4 (05:03→21:14)
[2021-09-06] MEDS: SUCRALFATE 1 GM (CARAFATE) TAB PO SCH ×4 (05:03→21:16)
--- NOTE | 2021-09-06 05:26 | PM&R Progress Note ---
Subjective HPI/CC On Admission Date Seen by Provider: Sep 06, 2021 Time Seen by Provider: 10:30 Subjective/Events-last exam 09/06/2021: Pt is doing a lot better Hemoglobin was 10.2 Has a decubitus ulcer on his coccyx Low bp so holding Norvasc Pilar lift is being used 09/05/2021: Patient doing really well Requiring Pilar lift though Lovenox started today Blood sugars are variable 09/04/2021: Patient doing very well Requiring Pilar lift since he cannot use the sit to stand at this current time Moving his arms and hands better Blood sugar is a little bit elevated Blood pressure better Lovenox will be started tomorrow 09/03/2021: Pt is doing well Took a shower but then he couldn't really get back in bed Had some emesis so we'll start Protonix 40 mg BID and Carafate Aguilar cath remains due to retention 09/02/2021: Pt settling in well Holding all insulin due to hypoglycemia Had emesis last night Fed himself a bit today Keeping aguilar in for retention Review of Systems General: Fatigue, Malaise Musculoskeletal: neck pain Objective Exam Vital Signs Vital Signs Date Time Temp Pulse Resp B/P (MAP) Pulse Ox O2 Delivery O2 Flow Rate FiO2 09/06/21 21:18 Room Air 09/06/21 20:24 36.0 70 18 152/72 (98) 97 Capillary Refill : General Appearance: No Apparent Distress, WD/WN, Chronically ill, Obese HEENT: PERRL/EOMI, Normal ENT Inspection, Pharynx Normal Neck: Full Range of Motion, Normal Inspection, Non Tender, Supple, Carotid Bruit Respiratory: Chest Non Tender, Lungs Clear, Normal Breath Sounds, No Accessory Muscle Use, No Respiratory Distress Cardiovascular: Regular Rate, Rhythm, No Edema, No Gallop, No JVD, No Murmur, Normal Peripheral Pulses Gastrointestinal: Normal Bowel Sounds, No Organomegaly, No Pulsatile Mass, Non Tender, Soft Back: Normal Inspection, No CVA Tenderness, No Vertebral Tenderness, Decreased Range of Motion (Neck) Extremity: Normal Capillary Refill, Normal Inspection, Normal Range of Motion, Non Tender, No Calf Tenderness, No Pedal Edema Neurologic/Psychiatric: Alert, Oriented x3, Normal Mood/Affect, Abnormal Gait, Motor Weakness (All extremities, right arm and hand 3/5, left arm and hand 2/5) Skin: Normal Color, Warm/Dry Lymphatic: No Adenopathy Results/Procedures Lab Laboratory Tests 09/06/21 05:16 Patient resulted labs reviewed. FIM Transfers Therapy Code Descriptions/Definitions Functional [place] Measure: 0=Not Assessed/NA 4=Minimal Assistance 1=Total Assistance 5=Supervision or Setup 2=Maximal Assistance 6=Modified [place] 3=Moderate Assistance 7=Complete IndependenceSCALE: Activities may be completed with or without assistive devices. 4-Ptcvadjpdb-smhocmr completes the activity by him/herself with no assistance from a helper. 5-Set-up or Clean-up Assistance-helper sets up or cleans up; patient completes activity. [place] assists only prior to or following the activity. 4-Supervision or Touching Assistance-helper provides verbal cues and/or touching/steadying and/or contact guard assistance as patient completes activity. Assistance may be provided throughout the activity or intermittently. 3-Partial/Moderate Assistance-helper does LESS THAN HALF the effort. [place] lifts, holds or supports trunk or limbs, but provides less than half the effort. 2-Substantial/Maximal Assistance-helper does MORE THAN HALF the effort. [place] lifts or holds trunk or limbs and provides more than half the effort. 5-Zrxiftkjl-fqfztg does ALL the effort. Patient does none of the effort to complete the activity. Or, the assistance of 2 or more helpers is required for the patient to complete the activity. If activity was not attempted, code reason: 7-Patient Refused. 9-Not Applicable-not attempted and the patient did not perform the activity before the current illness, exacerbation or injury. 10-Not Attempted due to Environmental Limitations-(lack of equipment, weather restraints, etc.). 88-Not Attempted due to Medical Conditions or Safety Concerns. Roll Left to Right (QC): 1 Sit to Lying (QC): 3 Sit to Stand (QC): 3 Chair/Crw-pq-Ymbww Xfer(QC): 1 Car Transfer (QC): 88 Gait Training Walk 10 feet (QC): 88 Walk 50 ft with 2 Turns(QC): 88 Walk 150 ft (QC): 88 Walking 10ft/uneven surface-QC: 88 Wheelchair Training Wheel 50 ft with 2 turns (QC): 88 Wheel 150 ft (QC): 88 Stair Training 1 Step (curb) (QC): 88 4 Steps (QC): 88 12 Steps (QC): 88 Balance Picking up an Object (QC): 88 ADL-Treatment Eating (QC): 4 (with built up utencil) Oral Hygiene (QC): 3 Shower/Bathe Self (QC): 2 Upper Body Dressing (QC): 2 Lower Body Dressing (QC): 1 On/Off Footwear (QC): 1 Toileting Hygiene (QC): 1 Toilet Transfer (QC): 1 Assessment/Plan Assessment and Plan Assess & Plan/Chief Complaint Assessment: 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 Diabetes zcl-qe-nhbmfih Hypertension Hyperlipidemia Previous CVA with right-sided weakness Plan: Aggressive therapy Pain control Monitor bowel function Insulin 09/02/2021: Supportive care Aggressive therapy Hold insulin 09/03/2021: Supportive care Cervical spine collar Aguilar catheter 09/04/2021: Supportive care Cervical spine collar Aguilar catheter Pilar lift We'll start Lovenox tomorrow 09/05/2021: Supportive care Lovenox Maintain Aguilar 09/06/2021: Maintain Aguilar Continues to be Pilar lift (1) Cervical spine syndrome (2) Myoclonus (3) Type 2 diabetes mellitus without complication (4) Primary hypertension (5) Mixed hyperlipidemia (6) History of CVA with residual deficit (7) Right sided weakness (8) Cervical cord myelomalacia (9) Spinal cord contusion (10) Fall Status: Acute ERIKASHAYNE DO Sep 06, 2021 05:26
[2021-09-06 05:56] LABS: BASOPHILS % (AUTO) 1 % (0-10); EOSINOPHILS # (AUTO) 0.4 10^3/uL (0.0-0.3); EOSINOPHILS % (AUTO) 5 % (0-10); HEMATOCRIT 30 % (40-54); HEMOGLOBIN 10.2 g/dL (13.3-17.7); LYMPHOCYTES # (AUTO) 2.1 10^3/uL (1.0-4.0); LYMPHOCYTES % (AUTO) 26 % (12-44); MEAN CORPUSCULAR HEMOGLOBIN 30 pg (25-34); MEAN CORPUSCULAR HGB CONC 34 g/dL (32-36); MEAN CORPUSCULAR VOLUME 87 fL (80-99); MEAN PLATELET VOLUME 9.1 fL (9.0-12.2); MONOCYTES # (AUTO) 0.6 10^3/uL (0.0-1.0); MONOCYTES % (AUTO) 7 % (0-12); NEUTROPHILS % (AUTO) 60 % (42-75); PLATELET COUNT 208 10^3/uL (130-400); WHITE BLOOD COUNT 8.2 10^3/uL (4.3-11.0)
[2021-09-06 06:12] LABS: ALBUMIN 2.6 GM/DL (3.2-4.5)
[2021-09-06 06:14] LABS: CALCIUM 8.5 MG/DL (8.5-10.1)
[2021-09-06 06:15] LABS: TOTAL PROTEIN 6.1 GM/DL (6.4-8.2)
[2021-09-06 06:16] LABS: BILIRUBIN,TOTAL 0.3 MG/DL (0.1-1.0)
[2021-09-06 06:18] LABS: CREATININE SERUM 1.12 MG/DL (0.60-1.30)
--- NOTE | 2021-09-06 07:58 | Physical Therapy Daily Note ---
PT Daily Note-Current Subjective Late Entry from 09-03-21 Patient lying supine in bed upon PT arrival, agreeable to treatment. Mental Status Patient Orientation: Person Transfers SCALE: Activities may be completed with or without assistive devices. 4-Hyamrheodd-xylpecj completes the activity by him/herself with no assistance from a helper. 5-Set-up or Clean-up Assistance-helper sets up or cleans up; patient completes activity. [place] assists only prior to or following the activity. 4-Supervision or Touching Assistance-helper provides verbal cues and/or touching/steadying and/or contact guard assistance as patient completes activity. Assistance may be provided throughout the activity or intermittently. 3-Partial/Moderate Assistance-helper does LESS THAN HALF the effort. [place] lifts, holds or supports trunk or limbs, but provides less than half the effort. 2-Substantial/Maximal Assistance-helper does MORE THAN HALF the effort. [place] lifts or holds trunk or limbs and provides more than half the effort. 9-Scemhakrb-ojbbyy does ALL the effort. Patient does none of the effort to complete the activity. Or, the assistance of 2 or more helpers is required for the patient to complete the activity. If activity was not attempted, code reason: 7-Patient Refused. 9-Not Applicable-not attempted and the patient did not perform the activity before the current illness, exacerbation or injury. 10-Not Attempted due to Environmental Limitations-(lack of equipment, weather restraints, etc.). 88-Not Attempted due to Medical Conditions or Safety Concerns. Exercises Supine Ex: Ankle pumps, Quad Set, Glut sets, Heel Slides, Short Arc Quads, Straight leg raise, Bicep Curls Supine Reps: 20 Assessment Current Status: Fair Progress Patient tolerated LE therapeutic exercises well. Demonstrates minimal improvement with AAROM, however still demonstrates significant strength deficit in BLEs. Patient in bed post treatment with all needs met, nursing notified, call light in hand. PT Short Term Goals Short Term Goals Time Frame: Sep 08, 2021 Roll Left & Right: 4 Sit to lyin Lying to sitting on side of be: 3 Sit to stand: 2 Chair/ouz-oo-ynlva transfer: 2 PT Senior Care Goals Integration Project Manager Goals PT Integration Project Manager Goals Time Frame: Sep 22, 2021 Roll Left & Right (QC): 4 Sit to Lying (QC): 4 Lying-Sitting on Side/Bed(QC): 4 Sit to Stand (QC): 3 Chair/Qup-qu-[place]mi[place] Xfer(QC): 3 Toilet Transfer (QC): 3 Car Transfer (QC): 3 Does the Patient Walk: No and Walking Goal NOT indicated Walk 10 feet (QC): 88 Walk 50ft with 2 Turns (QC): 88 Walk 150 ft (QC): 88 Walking 10ft on Uneven Surface: 88 1 Step (curb) (QC): 88 4 Steps (QC): 88 12 Steps (QC): 88 Picking up an Object (QC): 3 Does the Pt use WC or Scooter?: Yes Wheel 50 feet with 2 turns (QC: 3 Type: Manual Wheel 150 feet: 3 Type: Manual PT Plan Treatment/Plan Treatment Plan: Continue Plan of Care Treatment Plan: Bed Mobility, Education, Functional Activity Sara, Functional Strength, Group Therapy, Safety, Therapeutic Exercise, Transfers Treatment Duration: Sep 13, 2021 Frequency: At least 5 of 7 days/Wk (IRF) Estimated Hrs Per Day: 1.5 hours per day Patient and/or Family Agrees t: Yes Safety Risks/Education Patient educated on the importance of LE strengthening and exercise to promote healing. Time/GCodes Time In: 1605 Time Out: 1620 Total Billed Treatment Time: 15 Total Billed Treatment Visit, Ex NOEMI CRAIG PT Sep 06, 2021 07:58
[2021-09-06 08:00] VITALS: BP 92/56
[2021-09-06] MEDS: SENNA W/DOCUSATE (SENOKOT S) TABLET PO SCH ×2 (08:52→21:22)
[2021-09-06] MEDS: PANTOPRAZOLE 40 MG (PROTONIX) TAB PO SCH ×2 (08:52→21:16)
[2021-09-06] MEDS: polyethylene glycoL POWDER 17 GM (MIRALAX) PACK PO SCH ×2 (08:52→21:22)
[2021-09-06] MEDS: ENOXAPARIN 40 MG/0.4 ML (LOVENOX) SYR SC SCH (08:52)
[2021-09-06] MEDS: DOCUSATE SODIUM 100 MG (COLACE) CAP PO SCH ×2 (08:52→21:22)
--- NOTE | 2021-09-06 08:55 | Occupational Ther Daily Note ---
OT Current Status-Daily Note Subjective Pt denies pain, agreeable to treatment. Co-treat with PT due to need of 2 skilled clinicians to progress indep with adls and mobility. Appearance Pt left sitting in the recliner, BLE's elevated, all needs within reach, RN notified. ADL-Treatment Therapy Code Descriptions/Definitions Functional [place] Measure: 0=Not Assessed/NA 4=Minimal Assistance 1=Total Assistance 5=Supervision or Setup 2=Maximal Assistance 6=Modified [place] 3=Moderate Assistance 7=Complete IndependenceSCALE: Activities may be completed with or without assistive devices. 9-Rgqnewhjkd-rjjeksf completes the activity by him/herself with no assistance from a helper. 5-Set-up or Clean-up Assistance-helper sets up or cleans up; patient completes activity. [place] assists only prior to or following the activity. 4-Supervision or Touching Assistance-helper provides verbal cues and/or touching/steadying and/or contact guard assistance as patient completes activity. Assistance may be provided throughout the activity or intermittently. 3-Partial/Moderate Assistance-helper does LESS THAN HALF the effort. [place] lifts, holds or supports trunk or limbs, but provides less than half the effort. 2-Substantial/Maximal Assistance-helper does MORE THAN HALF the effort. [place] lifts or holds trunk or limbs and provides more than half the effort. 2-Pvskroiny-dxfjav does ALL the effort. Patient does none of the effort to complete the activity. Or, the assistance of 2 or more helpers is required for the patient to complete the activity. If activity was not attempted, code reason: 7-Patient Refused. 9-Not Applicable-not attempted and the patient did not perform the activity before the current illness, exacerbation or injury. 10-Not Attempted due to Environmental Limitations-(lack of equipment, weather restraints, etc.). 88-Not Attempted due to Medical Conditions or Safety Concerns. Eating (QC): 5 Upper Body Dressing (QC): 2 Lower Body Dressing (QC): 1 On/Off Footwear: 1 Toileting Hygiene (QC): 1 Toilet Transfer (QC): 1 Pt finishing breakfast at therapy arrival. He was able to grasp silverware and bring to mouth with R hand. Extra time but no assist required. Anticipate set up assist needed, especially with bilateral tasks such as cutting. Pt incontinent of large amount of stool. Dependent for latonya care. He was able to roll with min-mod a. LB dressing performed at bed level. While in long sitting, pt was able to flex hip/knee in order to thread feet through brief/shorts. Assist to maintain grasp throughout task and pull clothing completely over heel. He returned to supine for clothing management. Task completed initially while bridging at hips, but unable to sustain long enough to finish. Thus, rolling R/L performed as therapist pulled clothing over hips. Other Treatment Stand pivot with Max a x1. Pt does have tendency to go into LB flexor/extensor tone but is unpredictable what will occur. Thus a second person is needed for safety. While in parallel bars, pt stood multiple time with emphasis on improving standing tolerance, balance, strength and weight bearing needed for adls. Assist to position/grasp bar with L hand. Pt has tendency to bear all weight onto RLE unless 2nd therapist is assisting with keeping L foot planted on floor. Pt unable to tolerate standing for >25 seconds this date. Appears to fatigue quicker than past sessions. Education OT Patient Education: Correct positioning, Progress toward Goal/Update tx plan, Purpose of tx/functional activities, Rehab process, Safety issues, Transfer techniques Teaching Recipient: Patient Teaching Methods: Demonstration, Discussion Response to Teaching: Verbalize Understanding, Return Demonstration, Reinforcement Needed OT Short Term Goals Short Term Goals Time Frame: Sep 22, 2021 Toileting hygiene: 2 Shower/bathe self: 2 Upper body dressin Lower body dressin Putting on/taking off footwear: 3 OT Fdc Goals Dehydrogenation Converter Helper Goals Time Frame: Oct 01, 2021 Eating (QC): 5 Oral Hygiene (QC): 6 Toileting Hygiene (QC): 4 Shower/Bathe Self (QC): 4 Upper Body Dressing (QC): 5 Lower Body Dressing (QC): 4 On/Off Footwear (QC): 4 Additional Goals: 1-Demonstrate ADL Tasks, 2-Verbalize Understanding, 3- ImproveStrength/Sara 1=Demonstrate adherence to instructed precautions during ADL tasks. 2=Patient will verbalize/demonstrate understanding of assistive devices/modifications for ADL. 3=Patient will improve strength/tolerance for activity to enable patient to perform ADL's. OT Education/Plan Problem List/Assessment Assessment: Decreased Activ Tolerance, Decreased Safety Aware, Decreased UE Strength, Dependent Transfers, Impaired Bed Mobility, Impaired Coordination, Impaired Funct Balance, Impaired I ADL's, Impaired Self-Care Skills, Restricted Funct UE ROM Discharge Recommendations Plan/Recommendations: Continue POC Therapy Discharge Recommendati: Post Acute OT Treatment Plan/Plan of Care Treatment,Training & Education: Yes Patient would benefit from OT for education, treatment and training to promote independence in ADL's, mobility, safety and/or upper extremity function for ADL's. Plan of Care: ADL Retraining, Functional Mobility, Group Exercise/Act as Ind, UE Funct Exercise/Act, UE Neuromus Re-Ed/Coord Treatment Duration: Oct 01, 2021 Frequency: At least 5 of 7 days/Wk (IRF) Estimated Hrs Per Day: 1.5 hours per day Agreement: Yes Rehab Potential: Fair Time/GCodes Start Time: 08:00 Stop Time: 09:00 Total Time Billed (hr/min): 60 Billed Treatment Time 1 visit ADL x3 (40 min) FA (20 min) Nisreen Lowe OT Sep 06, 2021 08:55
--- NOTE | 2021-09-06 08:55 | Physical Therapy Daily Note ---
PT Daily Note-Current Subjective Patient in bed pre tx, agrees to PT,has no complaints of pain. Will be co- treating with OT due to poor patient mobility, strength endurance, severe debility, coordinate UE and LE during activity, safety and reduce risk of falls. Appearance Patient in recliner post tx with nurse call, phone, tray, legs elevated, veronica sling under him. Mental Status Patient Orientation: Person, Unable to Assess Attachments: Tyson Catheter cervical collar Transfers SCALE: Activities may be completed with or without assistive devices. 7-Ocihofbbbc-cmuzwzp completes the activity by him/herself with no assistance from a helper. 5-Set-up or Clean-up Assistance-helper sets up or cleans up; patient completes activity. [place] assists only prior to or following the activity. 4-Supervision or Touching Assistance-helper provides verbal cues and/or touching/steadying and/or contact guard assistance as patient completes activity. Assistance may be provided throughout the activity or intermittently. 3-Partial/Moderate Assistance-helper does LESS THAN HALF the effort. [place] lifts, holds or supports trunk or limbs, but provides less than half the effort. 2-Substantial/Maximal Assistance-helper does MORE THAN HALF the effort. [place] lifts or holds trunk or limbs and provides more than half the effort. 6-Ntjmjjorb-xfoisf does ALL the effort. Patient does none of the effort to complete the activity. Or, the assistance of 2 or more helpers is required for the patient to complete the activity. If activity was not attempted, code reason: 7-Patient Refused. 9-Not Applicable-not attempted and the patient did not perform the activity before the current illness, exacerbation or injury. 10-Not Attempted due to Environmental Limitations-(lack of equipment, weather restraints, etc.). 88-Not Attempted due to Medical Conditions or Safety Concerns. Roll Left & Right (QC): 3 Lying to Sitting/Side of Bed(Q: 3 Sit to Stand (QC): 3 Chair/Jel-ey-Clepw Xfer(QC): 3 Patient has had a BM in bed, has to roll from side to side many times for c leaning and dressing, min assist for rolling. Supine so sit with mod assist, stand pivot to WC with mod assist. During stand pivot transfers he tends to flex his knees and needs proper placement and guarding to keep that from happening. He is able to bear weight on his right leg but left not as much. Patient is encouraged to propel the WC to therapy gym, he cannot use his legs due to poor coordination and cannot use his left hand due to weakness. Patient is taken to therapy gym and into parallel bars where he stands x4 with mod assist. He has trouble bearing weight on his left leg and it tends to externally rotate and hang while he bears weight through his right leg. Patient is taken back to his room and mod assist stand pivot to recliner. Treatments PT performed bed mobility and transfers, standing, rolling, OT performed dressing, cleaning, UE positioning and safety during activity, assist with guarding legs/feet during standing. Assessment Current Status: Poor Progress small improvement in standing and transfers PT Short Term Goals Short Term Goals Time Frame: Sep 08, 2021 Roll Left & Right: 4 Sit to lyin Lying to sitting on side of be: 3 Sit to stand: 2 Chair/nvp-nv-deqhv transfer: 2 PT Nursing Home Goals Nursing Home Goals PT [employer] Goals Time Frame: Sep 22, 2021 Roll Left & Right (QC): 4 Sit to Lying (QC): 4 Lying-Sitting on Side/Bed(QC): 4 Sit to Stand (QC): 3 Chair/Xgb-sm-Xrgvl Xfer(QC): 3 Toilet Transfer (QC): 3 Car Transfer (QC): 3 Does the Patient Walk: No and Walking Goal NOT indicated Walk 10 feet (QC): 88 Walk 50ft with 2 Turns (QC): 88 Walk 150 ft (QC): 88 Walking 10ft on Uneven Surface: 88 1 Step (curb) (QC): 88 4 Steps (QC): 88 12 Steps (QC): 88 Picking up an Object (QC): 3 Does the Pt use WC or Scooter?: Yes Wheel 50 feet with 2 turns (QC: 3 Type: Manual Wheel 150 feet: 3 Type: Manual PT Plan Problem List Problem List: Activity Tolerance, Functional Strength, Safety, Balance, Gait, Transfer, Bed Mobility, ROM Treatment/Plan Treatment Plan: Continue Plan of Care Treatment Plan: Bed Mobility, Education, Functional Activity Sara, Functional Strength, Group Therapy, Safety, Therapeutic Exercise, Transfers Treatment Duration: Sep 13, 2021 Frequency: At least 5 of 7 days/Wk (IRF) Estimated Hrs Per Day: 1.5 hours per day Patient and/or Family Agrees t: Yes Safety Risks/Education Patient Education: Transfer Techniques, Reviewed Precautions, Correct Positioning, W/C Management, Safety Issues Teaching Recipient: Patient Teaching Methods: Demonstration, Discussion Response to Teaching: Reinforcement Needed Time/GCodes Time In: 0800 Time Out: 0900 Total Billed Treatment Time: 60 Total Billed Treatment 1 visit FA 60' co-treated for 60' VERONICA MONIQUE PT Sep 06, 2021 08:55
[2021-09-06] MEDS: amLODIPine 5 MG (NORVASC) TAB PO SCH (11:06)
[2021-09-06] MEDS: meTOprolol TARTRATE 25 MG (LOPRESSOR) TABLET PO SCH ×2 (11:06→21:16)
--- NOTE | 2021-09-06 12:05 | Occupational Ther Daily Note ---
OT Current Status-Daily Note Subjective Pt agreeable to OT treatment, denies pain Appearance Left sitting in recliner, all needs within reach. ADL-Treatment Therapy Code Descriptions/Definitions Functional [place] Measure: 0=Not Assessed/NA 4=Minimal Assistance 1=Total Assistance 5=Supervision or Setup 2=Maximal Assistance 6=Modified [place] 3=Moderate Assistance 7=Complete IndependenceSCALE: Activities may be completed with or without assistive devices. 8-Bmacdrwrre-jfljwfp completes the activity by him/herself with no assistance from a helper. 5-Set-up or Clean-up Assistance-helper sets up or cleans up; patient completes activity. [place] assists only prior to or following the activity. 4-Supervision or Touching Assistance-helper provides verbal cues and/or touching/steadying and/or contact guard assistance as patient completes activity. Assistance may be provided throughout the activity or intermittently. 3-Partial/Moderate Assistance-helper does LESS THAN HALF the effort. [place] lifts, holds or supports trunk or limbs, but provides less than half the effort. 2-Substantial/Maximal Assistance-helper does MORE THAN HALF the effort. [place] lifts or holds trunk or limbs and provides more than half the effort. 7-Ysmlboxpe-nqhbxk does ALL the effort. Patient does none of the effort to complete the activity. Or, the assistance of 2 or more helpers is required for the patient to complete the activity. If activity was not attempted, code reason: 7-Patient Refused. 9-Not Applicable-not attempted and the patient did not perform the activity before the current illness, exacerbation or injury. 10-Not Attempted due to Environmental Limitations-(lack of equipment, weather restraints, etc.). 88-Not Attempted due to Medical Conditions or Safety Concerns. Other Treatment Pt participated in UE exercises with goal to promote increased strength and endurance needed for adls. 2# hand held weight utilized for RUE, no resistance for Left. Shoulder movements performed to 90 degrees only due to neck brace. AAROM required with L shoulder, only able to tolerate ~80 degrees. Streching peformed at hand with emphasis on improving digit extension/flexion needed for funtional tasks. Pt then completed functional reaching, grasping, and pinching with L hand. Cues to extend fingers before grasping for object. Pt able to maintain grasp and release without assist. Significant difficulty pinching 1/2 inch object, HOHA required. At end of session, reports he enjoys UE exercises and requests to continue. Education OT Patient Education: Correct positioning, Exercise program, Modified ADL techniques, Purpose of tx/functional activities, Reviewed precautions, Safety issues Teaching Recipient: Patient Teaching Methods: Demonstration, Discussion Response to Teaching: Return Demonstration, Reinforcement Needed OT Short Term Goals Short Term Goals Time Frame: Sep 22, 2021 Toileting hygiene: 2 Shower/bathe self: 2 Upper body dressin Lower body dressin Putting on/taking off footwear: 3 OT Jail Goals Jail Goals Time Frame: Oct 01, 2021 Eating (QC): 5 Oral Hygiene (QC): 6 Toileting Hygiene (QC): 4 Shower/Bathe Self (QC): 4 Upper Body Dressing (QC): 5 Lower Body Dressing (QC): 4 On/Off Footwear (QC): 4 Additional Goals: 1-Demonstrate ADL Tasks, 2-Verbalize Understanding, 3- ImproveStrength/Sara 1=Demonstrate adherence to instructed precautions during ADL tasks. 2=Patient will verbalize/demonstrate understanding of assistive devices/modifications for ADL. 3=Patient will improve strength/tolerance for activity to enable patient to perform ADL's. OT Education/Plan Problem List/Assessment Assessment: Decreased Activ Tolerance, Decreased Safety Aware, Decreased UE Strength, Dependent Transfers, Impaired Coordination, Impaired Funct Balance, Impaired I ADL's, Impaired Self-Care Skills, Restricted Funct UE ROM Discharge Recommendations Plan/Recommendations: Continue POC Treatment Plan/Plan of Care Treatment,Training & Education: Yes Patient would benefit from OT for education, treatment and training to promote independence in ADL's, mobility, safety and/or upper extremity function for ADL's. Plan of Care: ADL Retraining, Functional Mobility, Group Exercise/Act as Ind, UE Funct Exercise/Act, UE Neuromus Re-Ed/Coord Treatment Duration: Oct 01, 2021 Frequency: At least 5 of 7 days/Wk (IRF) Estimated Hrs Per Day: 1.5 hours per day Agreement: Yes Rehab Potential: Fair Time/GCodes Start Time: 11:00 Stop Time: 11:30 Total Time Billed (hr/min): 30 Billed Treatment Time 1 visit EX (20 min) FA (10 min) Nisreen Lowe OT Sep 06, 2021 12:05
--- NOTE | 2021-09-06 13:10 | Physical Therapy Daily Note ---
PT Daily Note-Current Subjective Patient in recliner pre tx, agrees to PT, has no complaints of pain. Appearance Patient in recliner post tx with nurse call, phone, tray, all needs met. Mental Status Patient Orientation: Person, Unable to Assess Attachments: Tyson Catheter Transfers SCALE: Activities may be completed with or without assistive devices. 4-Bvclihwetq-hwmvkgy completes the activity by him/herself with no assistance from a helper. 5-Set-up or Clean-up Assistance-helper sets up or cleans up; patient completes activity. [place] assists only prior to or following the activity. 4-Supervision or Touching Assistance-helper provides verbal cues and/or touching/steadying and/or contact guard assistance as patient completes activity. Assistance may be provided throughout the activity or intermittently. 3-Partial/Moderate Assistance-helper does LESS THAN HALF the effort. [place] lifts, holds or supports trunk or limbs, but provides less than half the effort. 2-Substantial/Maximal Assistance-helper does MORE THAN HALF the effort. [place] lifts or holds trunk or limbs and provides more than half the effort. 6-[place]ek[place]-rgrccb does ALL the effort. Patient does none of the effort to complete the activity. Or, the assistance of 2 or more helpers is required for the patient to complete the activity. If activity was not attempted, code reason: 7-Patient Refused. 9-Not Applicable-not attempted and the patient did not perform the activity before the current illness, exacerbation or injury. 10-Not Attempted due to Environmental Limitations-(lack of equipment, weather restraints, etc.). 88-Not Attempted due to Medical Conditions or Safety Concerns. Exercises Supine Ex: Quad Set, Glut sets, Heel Slides, Short Arc Quads, Straight leg raise, Hip abd/add Supine Reps: 20 (done in recliner with legs elevated) Seated Therapy Exercises: Ankle pumps, Hip flexion, Hip abd/add Seated Reps: 20 LAQ alternating for 5 min, also performed manual stretching BLE Treatments LE strengthening and stretching Assessment Current Status: Poor Progress Patient continues to have increased BLE tone but worse on the left side PT Short Term Goals Short Term Goals Time Frame: Sep 08, 2021 Roll Left & Right: 4 Sit to lyin Lying to sitting on side of be: 3 Sit to stand: 2 Chair/yae-ua-xwmiw transfer: 2 PT [facility] Goals Rn [facility] [place] Goals PT [facility] Goals Time Frame: Sep 22, 2021 Roll Left & Right (QC): 4 Sit to Lying (QC): 4 Lying-Sitting on Side/Bed(QC): 4 Sit to Stand (QC): 3 Chair/Lgz-ez-Xjari Xfer(QC): 3 Toilet Transfer (QC): 3 Car Transfer (QC): 3 Does the Patient Walk: No and Walking Goal NOT indicated Walk 10 feet (QC): 88 Walk 50ft with 2 Turns (QC): 88 Walk 150 ft (QC): 88 Walking 10ft on Uneven Surface: 88 1 Step (curb) (QC): 88 4 Steps (QC): 88 12 Steps (QC): 88 Picking up an Object (QC): 3 Does the Pt use WC or Scooter?: Yes Wheel 50 feet with 2 turns (QC: 3 Type: Manual Wheel 150 feet: 3 Type: Manual PT Plan Problem List Problem List: Activity Tolerance, Functional Strength, Safety, Balance, Gait, Transfer, Bed Mobility, ROM Treatment/Plan Treatment Plan: Continue Plan of Care Treatment Plan: Bed Mobility, Education, Functional Activity Sara, Functional Strength, Group Therapy, Safety, Therapeutic Exercise, Transfers Treatment Duration: Sep 13, 2021 Frequency: At least 5 of 7 days/Wk (IRF) Estimated Hrs Per Day: 1.5 hours per day Patient and/or Family Agrees t: Yes Safety Risks/Education Patient Education: Correct Positioning, Safety Issues Teaching Recipient: Patient Teaching Methods: Demonstration, Discussion Response to Teaching: Reinforcement Needed Time/GCodes Time In: 1240 Time Out: 1310 Total Billed Treatment Time: 30 Total Billed Treatment 1 visit EX 30' VERONICA MONIQUE PT Sep 06, 2021 13:10
[2021-09-06] MEDS ORDERED: ACET-93 PO (13:59)
[2021-09-06] MEDS ORDERED: IBUP-2473 PO (13:59)
[2021-09-06 20:24] VITALS: BP 152/72
[2021-09-06] MEDS: ROSUVASTATIN 20 MG (CRESTOR) TABLET PO SCH (21:17)
--- NOTE | 2021-09-07 05:51 | PM&R Progress Note ---
Subjective HPI/CC On Admission Date Seen by Provider: Sep 07, 2021 Time Seen by Provider: 08:30 Subjective/Events-last exam 09/07/2021: Pt is doing well Blood sugar is 127 Bowels are loose Coccyx has a decubitus ulcer and we will monitor that closely 09/06/2021: Pt is doing a lot better Hemoglobin was 10.2 Has a decubitus ulcer on his coccyx Low bp so holding Norvasc Pilar lift is being used 09/05/2021: Patient doing really well Requiring Pilar lift though Lovenox started today Blood sugars are variable 09/04/2021: Patient doing very well Requiring Pilar lift since he cannot use the sit to stand at this current time Moving his arms and hands better Blood sugar is a little bit elevated Blood pressure better Lovenox will be started tomorrow 09/03/2021: Pt is doing well Took a shower but then he couldn't really get back in bed Had some emesis so we'll start Protonix 40 mg BID and Carafate Aguilar cath remains due to retention 09/02/2021: Pt settling in well Holding all insulin due to hypoglycemia Had emesis last night Fed himself a bit today Keeping aguilar in for retention Review of Systems General: Fatigue, Malaise Neurological: Weakness, Incoordination Objective Exam Vital Signs Vital Signs Date Time Temp Pulse Resp B/P (MAP) Pulse Ox O2 Delivery O2 Flow Rate FiO2 09/07/21 20:45 36.0 69 20 129/71 (90) 98 Room Air Capillary Refill : General Appearance: No Apparent Distress, WD/WN, Chronically ill, Obese HEENT: PERRL/EOMI, Normal ENT Inspection, Pharynx Normal Neck: Full Range of Motion, Normal Inspection, Non Tender, Supple, Carotid Bruit Respiratory: Chest Non Tender, Lungs Clear, Normal Breath Sounds, No Accessory Muscle Use, No Respiratory Distress Cardiovascular: Regular Rate, Rhythm, No Edema, No Gallop, No JVD, No Murmur, Normal Peripheral Pulses Gastrointestinal: Normal Bowel Sounds, No Organomegaly, No Pulsatile Mass, Non Tender, Soft Back: Normal Inspection, No CVA Tenderness, No Vertebral Tenderness, Decreased Range of Motion (Neck) Extremity: Normal Capillary Refill, Normal Inspection, Normal Range of Motion, Non Tender, No Calf Tenderness, No Pedal Edema Neurologic/Psychiatric: Alert, Oriented x3, Normal Mood/Affect, Abnormal Gait, Motor Weakness (All extremities, right arm and hand 3/5, left arm and hand 2/5) Skin: Normal Color, Warm/Dry Lymphatic: No Adenopathy Results/Procedures Lab Patient resulted labs reviewed. FIM Transfers Therapy Code Descriptions/Definitions Functional [place] Measure: 0=Not Assessed/NA 4=Minimal Assistance 1=Total Assistance 5=Supervision or Setup 2=Maximal Assistance 6=Modified [place] 3=Moderate Assistance 7=Complete IndependenceSCALE: Activities may be completed with or without assistive devices. 8-Dxrnckocco-ptwltfk completes the activity by him/herself with no assistance from a helper. 5-Set-up or Clean-up Assistance-helper sets up or cleans up; patient completes activity. [place] assists only prior to or following the activity. 4-Supervision or Touching Assistance-helper provides verbal cues and/or touching/steadying and/or contact guard assistance as patient completes activity. Assistance may be provided throughout the activity or intermittently. 3-Partial/Moderate Assistance-helper does LESS THAN HALF the effort. [place] lifts, holds or supports trunk or limbs, but provides less than half the effort. 2-Substantial/Maximal Assistance-helper does MORE THAN HALF the effort. [place] lifts or holds trunk or limbs and provides more than half the effort. 9-Kliqshdnl-ffyrto does ALL the effort. Patient does none of the effort to complete the activity. Or, the assistance of 2 or more helpers is required for the patient to complete the activity. If activity was not attempted, code reason: 7-Patient Refused. 9-Not Applicable-not attempted and the patient did not perform the activity before the current illness, exacerbation or injury. 10-Not Attempted due to Environmental Limitations-(lack of equipment, weather restraints, etc.). 88-Not Attempted due to Medical Conditions or Safety Concerns. Roll Left to Right (QC): 3 Sit to Lying (QC): 3 Sit to Stand (QC): 3 Chair/Eyo-fb-Hleue Xfer(QC): 3 Car Transfer (QC): 88 Gait Training Walk 10 feet (QC): 88 Walk 50 ft with 2 Turns(QC): 88 Walk 150 ft (QC): 88 Walking 10ft/uneven surface-QC: 88 Wheelchair Training Wheel 50 ft with 2 turns (QC): 88 Wheel 150 ft (QC): 88 Stair Training 1 Step (curb) (QC): 88 4 Steps (QC): 88 12 Steps (QC): 88 Balance Picking up an Object (QC): 88 ADL-Treatment Eating (QC): 5 Oral Hygiene (QC): 3 Shower/Bathe Self (QC): 2 Upper Body Dressing (QC): 2 Lower Body Dressing (QC): 1 On/Off Footwear (QC): 1 Toileting Hygiene (QC): 1 Toilet Transfer (QC): 1 Assessment/Plan Assessment and Plan Assess & Plan/Chief Complaint Assessment: 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 Diabetes qkt-ov-lhwsekd Hypertension Hyperlipidemia Previous CVA with right-sided weakness Coccyx decubitus ulcers Plan: Aggressive therapy Pain control Monitor bowel function Insulin 09/02/2021: Supportive care Aggressive therapy Hold insulin 09/03/2021: Supportive care Cervical spine collar Aguilar catheter 09/04/2021: Supportive care Cervical spine collar Aguilar catheter Pilar lift We'll start Lovenox tomorrow 09/05/2021: Supportive care Lovenox Maintain Aguilar 09/06/2021: Maintain Aguilar Continues to be Pilar lift 09/07/2021: Coccyx decubitus ulcer management (1) Cervical spine syndrome (2) Myoclonus (3) Type 2 diabetes mellitus without complication (4) Primary hypertension (5) Mixed hyperlipidemia (6) History of CVA with residual deficit (7) Right sided weakness (8) Cervical cord myelomalacia (9) Spinal cord contusion (10) Fall Status: Acute SHAYNE JAMES DO Sep 07, 2021 05:51
[2021-09-07] MEDS: inSUlin ASPART (NovoLOG) 1 UNIT/0.01 ML (CHARGE PER UNIT) SC SCH ×4 (06:00→20:50)
[2021-09-07] MEDS: SUCRALFATE 1 GM (CARAFATE) TAB PO SCH ×4 (06:04→20:48)
[2021-09-07 07:45] VITALS: BP 111/59
[2021-09-07] MEDS: PANTOPRAZOLE 40 MG (PROTONIX) TAB PO SCH ×2 (08:34→20:49)
[2021-09-07] MEDS: ENOXAPARIN 40 MG/0.4 ML (LOVENOX) SYR SC SCH (08:35)
[2021-09-07] MEDS: amLODIPine 5 MG (NORVASC) TAB PO SCH ×2 (08:35→09:00)
[2021-09-07] MEDS: meTOprolol TARTRATE 25 MG (LOPRESSOR) TABLET PO SCH ×2 (08:36→20:49)
[2021-09-07] MEDS: SENNA W/DOCUSATE (SENOKOT S) TABLET PO SCH ×2 (09:00→19:32)
[2021-09-07] MEDS: polyethylene glycoL POWDER 17 GM (MIRALAX) PACK PO SCH ×2 (09:00→19:32)
[2021-09-07] MEDS: DOCUSATE SODIUM 100 MG (COLACE) CAP PO SCH ×2 (09:00→19:32)
--- NOTE | 2021-09-07 09:29 | Occupational Ther Daily Note ---
OT Current Status-Daily Note Subjective Pt verbalizes pain in the back of the neck. Difficult to fully understand secondary to language barrier. From best understanding, it appears he hurt it in the bed. OT attempted to explain proper pillow/rolled blanket positioning to reduce neck flexion. Appearance Pt left sitting in recliner, all needs within reach. ADL-Treatment Therapy Code Descriptions/Definitions Functional [place] Measure: 0=Not Assessed/NA 4=Minimal Assistance 1=Total Assistance 5=Supervision or Setup 2=Maximal Assistance 6=Modified [place] 3=Moderate Assistance 7=Complete IndependenceSCALE: Activities may be completed with or without assistive devices. 3-Qoucmwwmnu-jijzibt completes the activity by him/herself with no assistance from a helper. 5-Set-up or Clean-up Assistance-helper sets up or cleans up; patient completes activity. [place] assists only prior to or following the activity. 4-Supervision or Touching Assistance-helper provides verbal cues and/or touching/steadying and/or contact guard assistance as patient completes activity. Assistance may be provided throughout the activity or intermittently. 3-Partial/Moderate Assistance-helper does LESS THAN HALF the effort. [place] lifts, holds or supports trunk or limbs, but provides less than half the effort. 2-Substantial/Maximal Assistance-helper does MORE THAN HALF the effort. [place] lifts or holds trunk or limbs and provides more than half the effort. 8-Fjwxiiryf-fnjccw does ALL the effort. Patient does none of the effort to complete the activity. Or, the assistance of 2 or more helpers is required for the patient to complete the activity. If activity was not attempted, code reason: 7-Patient Refused. 9-Not Applicable-not attempted and the patient did not perform the activity before the current illness, exacerbation or injury. 10-Not Attempted due to Environmental Limitations-(lack of equipment, weather restraints, etc.). 88-Not Attempted due to Medical Conditions or Safety Concerns. Oral Hygiene (QC): 3 Shower/Bathe Self (QC): 2 Lower Body Dressing (QC): 1 On/Off Footwear: 1 Toileting Hygiene (QC): 1 Toilet Transfer (QC): 1 Co-treat with PT secondary to need of 2 skilled clinicians to progress indep with adls and mobility. Pt incontinent of large BM at therapy arrival. Dependent for latonya care. Stand pivot to shower w/c: max a. Second person min a for safety and unpredictable flexor/extensor tone in LE's. Shower performed 100% in sitting. Slight improvement in coordination and management of hand held shower. Intermittent HOHA when managing with L hand. Pt able to wash chest/stomach, upper thighs, front latonya area and L arm without assist. Pain with L horizontal adduction when reaching across body to wash under R axilla. Thus, assist required. Pt utilized LHS to wash below knees but still needed assist for thoroughness. Dependent to wash buttocks. When donning brief, Pt required assist to lift/cross and maintain figure 4 position as he threaded foot into clothing. Mod a for reaching and threading over heel also required. Mod-max a to stand as second person managed clothing up to waist. Dep to don bilateral socks. Pt sat at sink for oral care. LUE utilized as stabilizer to hold toothbrush as R applied toothpaste. Pt able to brush teeth with R hand. Assist to hold basin when spitting secondary to neck brace and inability to flex while spitting into sink. Other Treatment Pt stood in parallel bars x3, improved standing tolerance to ~2-3 minutes. Blocking of L foot and Bilateral knees required. Assist also to position L hand on bar and upright positioning, especially as fatigue worsens. Pt also completed leg press 10x3. Assist to maintain neutral positioning in knees and feet as pt has tendency to bring knees out to side. Focus on improving LE strengthening, proprioception, and weight bearing needed for adls. Education OT Patient Education: Correct positioning, Energy conservation, Modified ADL techniques, Progress toward Goal/Update tx plan, Purpose of tx/functional activities, Rehab process, Safety issues, Transfer techniques, Use of adapted equipment Teaching Recipient: Patient Teaching Methods: Demonstration, Discussion Response to Teaching: Return Demonstration, Reinforcement Needed OT Short Term Goals Short Term Goals Time Frame: Sep 22, 2021 Toileting hygiene: 2 Shower/bathe self: 2 Upper body dressin Lower body dressin Putting on/taking off footwear: 3 OT Crayon Painter Goals Crayon Painter Goals Time Frame: Oct 01, 2021 Eating (QC): 5 Oral Hygiene (QC): 6 Toileting Hygiene (QC): 4 Shower/Bathe Self (QC): 4 Upper Body Dressing (QC): 5 Lower Body Dressing (QC): 4 On/Off Footwear (QC): 4 Additional Goals: 1-Demonstrate ADL Tasks, 2-Verbalize Understanding, 3- ImproveStrength/Sara 1=Demonstrate adherence to instructed precautions during ADL tasks. 2=Patient will verbalize/demonstrate understanding of assistive devices/modifications for ADL. 3=Patient will improve strength/tolerance for activity to enable patient to perform ADL's. OT Education/Plan Problem List/Assessment Assessment: Decreased Activ Tolerance, Decreased Safety Aware, Decreased UE Strength, Dependent Transfers, Impaired Bed Mobility, Impaired Coordination, Impaired Funct Balance, Impaired I ADL's, Impaired Self-Care Skills, Restricted Funct UE ROM Discharge Recommendations Plan/Recommendations: Continue POC Therapy Discharge Recommendati: Post Acute OT Treatment Plan/Plan of Care Treatment,Training & Education: Yes Patient would benefit from OT for education, treatment and training to promote independence in ADL's, mobility, safety and/or upper extremity function for ADL's. Plan of Care: ADL Retraining, Functional Mobility, Group Exercise/Act as Ind, UE Funct Exercise/Act, UE Neuromus Re-Ed/Coord Treatment Duration: Oct 01, 2021 Frequency: At least 5 of 7 days/Wk (IRF) Estimated Hrs Per Day: 1.5 hours per day Agreement: Yes Rehab Potential: Fair Time/GCodes Start Time: 08:00 Stop Time: 09:30 Total Time Billed (hr/min): 90 Billed Treatment Time 1 visit ADL x3 (50 min) FA x3 (40 min) Nisreen Lowe OT Sep 07, 2021 09:29
--- NOTE | 2021-09-07 09:30 | Physical Therapy Daily Note ---
PT Daily Note-Current Subjective Patient in bed pre tx, agrees to PT, has no complaints of pain at rest but has pain in neck and left shoulder during tx. Will be co-treating with OT due to poor patient mobility, strength, endurance, severe debility, coordinate UE and LE during activity, safety and reduce risk of falls. Appearance Patient in recliner post tx with nurse call, phone, tray, legs elevated, all needs met. Mental Status Patient Orientation: Person, Unable to Assess Attachments: Tyson Catheter cervical collar Transfers SCALE: Activities may be completed with or without assistive devices. 0-Kwbzbyjifo-fbipwuz completes the activity by him/herself with no assistance from a helper. 5-Set-up or Clean-up Assistance-helper sets up or cleans up; patient completes activity. [place] assists only prior to or following the activity. 4-Supervision or Touching Assistance-helper provides verbal cues and/or touching/steadying and/or contact guard assistance as patient completes activity. Assistance may be provided throughout the activity or intermittently. 3-Partial/Moderate Assistance-helper does LESS THAN HALF the effort. [place] lifts, holds or supports trunk or limbs, but provides less than half the effort. 2-Substantial/Maximal Assistance-helper does MORE THAN HALF the effort. [place] lifts or holds trunk or limbs and provides more than half the effort. 5-Vxopyqwbd-luvsqa does ALL the effort. Patient does none of the effort to complete the activity. Or, the assistance of 2 or more helpers is required for the patient to complete the activity. If activity was not attempted, code reason: 7-Patient Refused. 9-Not Applicable-not attempted and the patient did not perform the activity before the current illness, exacerbation or injury. 10-Not Attempted due to Environmental Limitations-(lack of equipment, weather restraints, etc.). 88-Not Attempted due to Medical Conditions or Safety Concerns. Roll Left & Right (QC): 3 Lying to Sitting/Side of Bed(Q: 3 Sit to Stand (QC): 3 Chair/Flu-rx-[place] Xfer(QC): 3 Patient was able to perform supine to sit to his right side with min assist. Patient then transferred to shower chair and was taken into the shower, sh owered, transferred to . During this time patient had to stand to don brief and change bandages. Patient then taken to therapy gym to perform a few LE exercises, back to his room to brush teeth at the sink, propelled WC using right arm and leg with min assist 200', and stood in the parallel bars x3 with mod assist for about 2 min each time. Exercises manually resisted leg press in WC 3 sets of 10 Treatments PT performed bed mobility and transfers, WC mobiltiy, LE strengthening, standing and positioning during bathing and ADL's, OT performed bathing, ADL's, UE positioning and safety during activity, dressing. Assessment Current Status: Poor Progress slightly improved supine to sit PT Short Term Goals Short Term Goals Time Frame: Sep 08, 2021 Roll Left & Right: 4 Sit to lyin Lying to sitting on side of be: 3 Sit to stand: 2 Chair/avg-ww-ckomq transfer: 2 PT Usp Goals White Sh[place] Ragger Goals PT [place] Sh[place] Ragger Goals Time Frame: Sep 22, 2021 Roll Left & Right (QC): 4 Sit to Lying (QC): 4 Lying-Sitting on Side/Bed(QC): 4 Sit to Stand (QC): 3 Chair/Mug-ha-Wgieb Xfer(QC): 3 Toilet Transfer (QC): 3 Car Transfer (QC): 3 Does the Patient Walk: No and Walking Goal NOT indicated Walk 10 feet (QC): 88 Walk 50ft with 2 Turns (QC): 88 Walk 150 ft (QC): 88 Walking 10ft on Uneven Surface: 88 1 Step (curb) (QC): 88 4 Steps (QC): 88 12 Steps (QC): 88 Picking up an Object (QC): 3 Does the Pt use WC or Scooter?: Yes Wheel 50 feet with 2 turns (QC: 3 Type: Manual Wheel 150 feet: 3 Type: Manual PT Plan Problem List Problem List: Activity Tolerance, Functional Strength, Safety, Balance, Gait, Transfer, Bed Mobility, ROM Treatment/Plan Treatment Plan: Continue Plan of Care Treatment Plan: Bed Mobility, Education, Functional Activity Sara, Functional Strength, Group Therapy, Safety, Therapeutic Exercise, Transfers Treatment Duration: Sep 13, 2021 Frequency: At least 5 of 7 days/Wk (IRF) Estimated Hrs Per Day: 1.5 hours per day Patient and/or Family Agrees t: Yes Safety Risks/Education Patient Education: Transfer Techniques, Correct Positioning, W/C Management, Safety Issues Teaching Recipient: Patient Teaching Methods: Demonstration, Discussion Response to Teaching: Reinforcement Needed Time/GCodes Time In: 08 Time Out: 929 Total Billed Treatment Time: 90 Total Billed Treatment 1 visit EX 15' FA 75' VERONICA MONIQUE PT Sep 07, 2021 09:30
[2021-09-07 20:45] VITALS: BP 129/71
[2021-09-07] MEDS: ROSUVASTATIN 20 MG (CRESTOR) TABLET PO SCH (20:49)
[2021-09-08] MEDS: inSUlin ASPART (NovoLOG) 1 UNIT/0.01 ML (CHARGE PER UNIT) SC SCH ×4 (06:20→20:57)
[2021-09-08] MEDS: SUCRALFATE 1 GM (CARAFATE) TAB PO SCH ×4 (06:20→20:57)
--- NOTE | 2021-09-08 07:15 | PM&R Progress Note ---
Subjective HPI/CC On Admission Date Seen by Provider: Sep 08, 2021 Time Seen by Provider: 12:45 Subjective/Events-last exam 09/08/2021: Pt is doing well Eating well Able to feed himself with his right hand Loose stools will be given Imodium 09/07/2021: Pt is doing well Blood sugar is 127 Bowels are loose Coccyx has a decubitus ulcer and we will monitor that closely 09/06/2021: Pt is doing a lot better Hemoglobin was 10.2 Has a decubitus ulcer on his coccyx Low bp so holding Norvasc Pilar lift is being used 09/05/2021: Patient doing really well Requiring Pilar lift though Lovenox started today Blood sugars are variable 09/04/2021: Patient doing very well Requiring Pilar lift since he cannot use the sit to stand at this current time Moving his arms and hands better Blood sugar is a little bit elevated Blood pressure better Lovenox will be started tomorrow 09/03/2021: Pt is doing well Took a shower but then he couldn't really get back in bed Had some emesis so we'll start Protonix 40 mg BID and Carafate Aguilar cath remains due to retention 09/02/2021: Pt settling in well Holding all insulin due to hypoglycemia Had emesis last night Fed himself a bit today Keeping aguilar in for retention Review of Systems General: Fatigue, Malaise Gastrointestinal: Diarrhea Neurological: Weakness, Incoordination Objective Exam Vital Signs Vital Signs Date Time Temp Pulse Resp B/P (MAP) Pulse Ox O2 Delivery O2 Flow Rate FiO2 09/08/21 20:11 36.5 68 18 148/70 (96) 98 Room Air Capillary Refill : General Appearance: No Apparent Distress, WD/WN, Chronically ill, Obese HEENT: PERRL/EOMI, Normal ENT Inspection, Pharynx Normal Neck: Full Range of Motion, Normal Inspection, Non Tender, Supple, Carotid Bruit Respiratory: Chest Non Tender, Lungs Clear, Normal Breath Sounds, No Accessory Muscle Use, No Respiratory Distress Cardiovascular: Regular Rate, Rhythm, No Edema, No Gallop, No JVD, No Murmur, Normal Peripheral Pulses Gastrointestinal: Normal Bowel Sounds, No Organomegaly, No Pulsatile Mass, Non Tender, Soft Back: Normal Inspection, No CVA Tenderness, No Vertebral Tenderness, Decreased Range of Motion Extremity: Normal Capillary Refill, Normal Inspection, Normal Range of Motion, Non Tender, No Calf Tenderness, No Pedal Edema Neurologic/Psychiatric: Alert, Oriented x3, Normal Mood/Affect, Abnormal Gait, Motor Weakness Skin: Normal Color, Warm/Dry Lymphatic: No Adenopathy Results/Procedures Lab Patient resulted labs reviewed. FIM Transfers Therapy Code Descriptions/Definitions Functional [place] Measure: 0=Not Assessed/NA 4=Minimal Assistance 1=Total Assistance 5=Supervision or Setup 2=Maximal Assistance 6=Modified [place] 3=Moderate Assistance 7=Complete IndependenceSCALE: Activities may be completed with or without assistive devices. 3-Gthbqkxxsu-zvresra completes the activity by him/herself with no assistance from a helper. 5-Set-up or Clean-up Assistance-helper sets up or cleans up; patient completes activity. [place] assists only prior to or following the activity. 4-Supervision or Touching Assistance-helper provides verbal cues and/or touching/steadying and/or contact guard assistance as patient completes activity. Assistance may be provided throughout the activity or intermittently. 3-Partial/Moderate Assistance-helper does LESS THAN HALF the effort. [place] lifts, holds or supports trunk or limbs, but provides less than half the effort. 2-Substantial/Maximal Assistance-helper does MORE THAN HALF the effort. [place] lifts or holds trunk or limbs and provides more than half the effort. 6-Fqxxlmenc-avzlom does ALL the effort. Patient does none of the effort to complete the activity. Or, the assistance of 2 or more helpers is required for the patient to complete the activity. If activity was not attempted, code reason: 7-Patient Refused. 9-Not Applicable-not attempted and the patient did not perform the activity before the current illness, exacerbation or injury. 10-Not Attempted due to Environmental Limitations-(lack of equipment, weather restraints, etc.). 88-Not Attempted due to Medical Conditions or Safety Concerns. Roll Left to Right (QC): 3 Sit to Lying (QC): 3 Sit to Stand (QC): 3 Chair/Qni-hy-Pizcv Xfer(QC): 3 Car Transfer (QC): 88 Gait Training Does the Patient Walk?: No and Walking Goal NOT indicated Walk 10 feet (QC): 88 Walk 50 ft with 2 Turns(QC): 88 Walk 150 ft (QC): 88 Walking 10ft/uneven surface-QC: 88 Wheelchair Training Does the Pt Use a Wheelchair?: Yes Wheel 50 ft with 2 turns (QC): 88 Wheel 150 ft (QC): 88 Type of Wheelchair: Manual Stair Training 1 Step (curb) (QC): 88 4 Steps (QC): 88 12 Steps (QC): 88 Balance Picking up an Object (QC): 88 ADL-Treatment Eating (QC): 5 Oral Hygiene (QC): 3 Shower/Bathe Self (QC): 2 Upper Body Dressing (QC): 2 Lower Body Dressing (QC): 1 On/Off Footwear (QC): 1 Toileting Hygiene (QC): 1 Toilet Transfer (QC): 1 Assessment/Plan Assessment and Plan Assess & Plan/Chief Complaint Assessment: 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 Diabetes wke-uf-hmkzcgo Hypertension Hyperlipidemia Previous CVA with right-sided weakness Coccyx decubitus ulcers Plan: Aggressive therapy Pain control Monitor bowel function Insulin 09/02/2021: Supportive care Aggressive therapy Hold insulin 09/03/2021: Supportive care Cervical spine collar Aguilar catheter 09/04/2021: Supportive care Cervical spine collar Aguilar catheter Pilar lift We'll start Lovenox tomorrow 09/05/2021: Supportive care Lovenox Maintain Aguilar 09/06/2021: Maintain Aguilar Continues to be Pilar lift 09/07/2021: Coccyx decubitus ulcer management 09/08/2021: Imodium for loose stools Continue to progress (1) Cervical spine syndrome (2) Myoclonus (3) Type 2 diabetes mellitus without complication (4) Primary hypertension (5) Mixed hyperlipidemia (6) History of CVA with residual deficit (7) Right sided weakness (8) Cervical cord myelomalacia (9) Spinal cord contusion (10) Fall Status: Acute SHAYNE JAMES DO Sep 08, 2021 07:15
[2021-09-08] MEDS: amLODIPine 5 MG (NORVASC) TAB PO SCH (07:41)
[2021-09-08] MEDS: PANTOPRAZOLE 40 MG (PROTONIX) TAB PO SCH ×2 (07:41→20:58)
[2021-09-08] MEDS: meTOprolol TARTRATE 25 MG (LOPRESSOR) TABLET PO SCH ×2 (07:41→20:58)
[2021-09-08] MEDS: ENOXAPARIN 40 MG/0.4 ML (LOVENOX) SYR SC SCH (07:41)
[2021-09-08 07:44] VITALS: BP 121/70
--- NOTE | 2021-09-08 08:54 | Occupational Ther Daily Note ---
OT Current Status-Daily Note Subjective Pt voices "yes" when questioned about pain but does not give a numerical value. He points at neck region. Appearance Pt returned to supine in bed, all needs within reach. ADL-Treatment Therapy Code Descriptions/Definitions Functional [place] Measure: 0=Not Assessed/NA 4=Minimal Assistance 1=Total Assistance 5=Supervision or Setup 2=Maximal Assistance 6=Modified [place] 3=Moderate Assistance 7=Complete IndependenceSCALE: Activities may be completed with or without assistive devices. 6-Ainxysgxsk-uanqmqp completes the activity by him/herself with no assistance from a helper. 5-Set-up or Clean-up Assistance-helper sets up or cleans up; patient completes activity. [place] assists only prior to or following the activity. 4-Supervision or Touching Assistance-helper provides verbal cues and/or touc lacey/steadying and/or contact guard assistance as patient completes activity. Assistance may be provided throughout the activity or intermittently. 3-Partial/Moderate Assistance-helper does LESS THAN HALF the effort. [place] lifts, holds or supports trunk or limbs, but provides less than half the effort. 2-Substantial/Maximal Assistance-helper does MORE THAN HALF the effort. [place] lifts or holds trunk or limbs and provides more than half the effort. 8-Glfxsocqv-irsslr does ALL the effort. Patient does none of the effort to complete the activity. Or, the assistance of 2 or more helpers is required for the patient to complete the activity. If activity was not attempted, code reason: 7-Patient Refused. 9-Not Applicable-not attempted and the patient did not perform the activity before the current illness, exacerbation or injury. 10-Not Attempted due to Environmental Limitations-(lack of equipment, weather restraints, etc.). 88-Not Attempted due to Medical Conditions or Safety Concerns. Eating (QC): 4 Oral Hygiene (QC): 4 Lower Body Dressing (QC): 1 On/Off Footwear: 1 Toileting Hygiene (QC): 1 Toilet Transfer (QC): 1 Supine<>sit: min A. Fair sitting balance with unsupported sitting, intermittent unilateral UE support on bedrail, no LOB. Max a x1 and CGA of 2nd person when transferring. Grooming tasks performed at w/c level seated at the sink. HOHA to maintain grasp on toothpaste with L hand as right hand twisted cap off. Pt able to utilize LUE as indep stabilizer on toothbrush as he applied toothpaste with right hand. He brushed all quadrants with R hand. HOHA to squeeze excess water out of washcloth with L hand and OT encouraged pt to assist with R hand. Post therapeutic activities, pt incontinent of bowels. He was returned to bed for latonya care. Dependent to clean and don new brief. Other Treatment Pt stood in parallel bars x4. Initially pt only able to stand for ~45 seconds. Improves to ~2-3 minutes with support provided at L foot/knee. Consistent cues for upright posture. Pt often in extensor tone and having difficulty shifting weight onto LLE. Pt able to place and grasp bar with L hand indep this date but does require assist to bring back when standing as he has a tendency to push forward too far. Pt also completed resistance leg press 10x3 with goal to promote increased weight bearing, proprioception and LE strength needed for adls and transfers. Assist to maintain correct foot positioning throughout. Education OT Patient Education: Correct positioning, Energy conservation, Modified ADL techniques, Progress toward Goal/Update tx plan, Purpose of tx/functional activities, Safety issues, Transfer techniques Teaching Recipient: Patient Teaching Methods: Discussion Response to Teaching: Return Demonstration, Reinforcement Needed OT Short Term Goals Short Term Goals Time Frame: Sep 22, 2021 Toileting hygiene: 2 Shower/bathe self: 2 Upper body dressin Lower body dressin Putting on/taking off footwear: 3 OT Senior Care Goals Electrotyper Helper Goals Time Frame: Oct 01, 2021 Eating (QC): 5 Oral Hygiene (QC): 6 Toileting Hygiene (QC): 4 Shower/Bathe Self (QC): 4 Upper Body Dressing (QC): 5 Lower Body Dressing (QC): 4 On/Off Footwear (QC): 4 Additional Goals: 1-Demonstrate ADL Tasks, 2-Verbalize Understanding, 3- ImproveStrength/Sara 1=Demonstrate adherence to instructed precautions during ADL tasks. 2=Patient will verbalize/demonstrate understanding of assistive devices/modifications for ADL. 3=Patient will improve strength/tolerance for activity to enable patient to perform ADL's. OT Education/Plan Problem List/Assessment Assessment: Decreased Activ Tolerance, Decreased Safety Aware, Decreased UE Strength, Dependent Transfers, Impaired Coordination, Impaired Funct Balance, Impaired I ADL's, Impaired Self-Care Skills, Restricted Funct UE ROM Discharge Recommendations Plan/Recommendations: Continue POC Therapy Discharge Recommendati: Post Acute OT Treatment Plan/Plan of Care Treatment,Training & Education: Yes Patient would benefit from OT for education, treatment and training to promote independence in ADL's, mobility, safety and/or upper extremity function for ADL's. Plan of Care: ADL Retraining, Functional Mobility, Group Exercise/Act as Ind, UE Funct Exercise/Act, UE Neuromus Re-Ed/Coord Treatment Duration: Oct 01, 2021 Frequency: At least 5 of 7 days/Wk (IRF) Estimated Hrs Per Day: 1.5 hours per day Agreement: Yes Rehab Potential: Fair Time/GCodes Start Time: 08:00 Stop Time: 09:00 Total Time Billed (hr/min): 60 Billed Treatment Time 1 visit ADL x2 (25 min) FA x2 (35 min) Nisreen Lowe OT Sep 08, 2021 08:54
[2021-09-08] MEDS: SENNA W/DOCUSATE (SENOKOT S) TABLET PO SCH ×2 (09:00→19:33)
[2021-09-08] MEDS: DOCUSATE SODIUM 100 MG (COLACE) CAP PO SCH ×2 (09:00→19:33)
[2021-09-08] MEDS: polyethylene glycoL POWDER 17 GM (MIRALAX) PACK PO SCH ×2 (09:00→19:33)
--- NOTE | 2021-09-08 09:54 | Physical Therapy Daily Note ---
PT Daily Note-Current Subjective Patient in bed pre tx, agrees to PT, has no complaints of pain at rest. Will be co-treating with OT due to poor patient mobility, strength, endurance, severe debility, coordinate UE and LE during activity, safety and reduce risk of falls. Appearance Patient in bed post tx with nurse call, phone, tray, all needs met. Mental Status Patient Orientation: Person, Unable to Assess cervical collar Transfers SCALE: Activities may be completed with or without assistive devices. 6-Ztffzhqwib-itlvyhu completes the activity by him/herself with no assistance from a helper. 5-Set-up or Clean-up Assistance-helper sets up or cleans up; patient completes activity. [place] assists only prior to or following the activity. 4-Supervision or Touching Assistance-helper provides verbal cues and/or touching/steadying and/or contact guard assistance as patient completes activ ity. Assistance may be provided throughout the activity or intermittently. 3-Partial/Moderate Assistance-helper does LESS THAN HALF the effort. [place] lifts, holds or supports trunk or limbs, but provides less than half the effort. 2-Substantial/Maximal Assistance-helper does MORE THAN HALF the effort. [place] lifts or holds trunk or limbs and provides more than half the effort. 9-Lkzknsewm-ggoiwc does ALL the effort. Patient does none of the effort to complete the activity. Or, the assistance of 2 or more helpers is required for the patient to complete the activity. If activity was not attempted, code reason: 7-Patient Refused. 9-Not Applicable-not attempted and the patient did not perform the activity before the current illness, exacerbation or injury. 10-Not Attempted due to Environmental Limitations-(lack of equipment, weather restraints, etc.). 88-Not Attempted due to Medical Conditions or Safety Concerns. Roll Left & Right (QC): 3 Sit to Lying (QC): 3 Lying to Sitting/Side of Bed(Q: 3 Sit to Stand (QC): 3 Chair/Izj-hj-Eaewo Xfer(QC): 3 Patient performs supine to sit with min/mod assist and transfers with WC with mod assist, patient needs careful positioning due to varying tone in legs. Patient propels to therapy gym and stands in parallel bars x3 with mod assist, assist to correctly position left leg/foot, he is able to stand for about a minute each time. Then patient performs manually resisted leg press and propels back to his room. Patient has had a BM and needs to get cleaned. He transfers to bed from WC with mod assist and lays down with mod assist, he rolls from side to side with min assist for cleaning and changing brief and padding and nurse changes bandages. Wheelchair Training Does the Pt Use a Wheelchair?: Yes Wheel 50 ft with 2 turns (QC): 3 Type of Wheelchair: Manual 100'x2 Exercises manually resisted legs press 3 sets of 10 Treatments PT performed bed mobility and transfers, standing, rolling, WC mobility, OT performed cleaning and changing brief, UE positioning and safety during activity. Assessment Current Status: Poor Progress no change in mobility, tried to take steps in parallel bars with assist of 3 and he could not do it yet safely PT Short Term Goals Short Term Goals Time Frame: Sep 08, 2021 Roll Left & Right: 4 Sit to lyin Lying to sitting on side of be: 3 Sit to stand: 2 Chair/fnq-ka-gvfbe transfer: 2 PT Cutter And Presser Goals Cutter And Presser Goals PT [facility] Goals Time Frame: Sep 22, 2021 Roll Left & Right (QC): 4 Sit to Lying (QC): 4 Lying-Sitting on Side/Bed(QC): 4 Sit to Stand (QC): 3 Chair/Dxf-vd-Bsjrp Xfer(QC): 3 Toilet Transfer (QC): 3 Car Transfer (QC): 3 Does the Patient Walk: No and Walking Goal NOT indicated Walk 10 feet (QC): 88 Walk 50ft with 2 Turns (QC): 88 Walk 150 ft (QC): 88 Walking 10ft on Uneven Surface: 88 1 Step (curb) (QC): 88 4 Steps (QC): 88 12 Steps (QC): 88 Picking up an Object (QC): 3 Does the Pt use WC or Scooter?: Yes Wheel 50 feet with 2 turns (QC: 3 Type: Manual Wheel 150 feet: 3 Type: Manual PT Plan Problem List Problem List: Activity Tolerance, Functional Strength, Safety, Balance, Gait, Transfer, Bed Mobility, ROM Treatment/Plan Treatment Plan: Continue Plan of Care Treatment Plan: Bed Mobility, Education, Functional Activity Sara, Functional Strength, Group Therapy, Safety, Therapeutic Exercise, Transfers Treatment Duration: Sep 13, 2021 Frequency: At least 5 of 7 days/Wk (IRF) Estimated Hrs Per Day: 1.5 hours per day Patient and/or Family Agrees t: Yes Safety Risks/Education Patient Education: Transfer Techniques, Correct Positioning, W/C Management, Safety Issues Teaching Recipient: Patient Teaching Methods: Demonstration, Discussion Response to Teaching: Reinforcement Needed Time/GCodes Time In: 0800 Time Out: 0900 Total Billed Treatment Time: 60 Total Billed Treatment 1 visit EX 10' FA 50' VERONICA MONIQUE PT Sep 08, 2021 09:54
--- NOTE | 2021-09-08 12:43 | Occupational Ther Daily Note ---
OT Current Status-Daily Note Subjective Language barrier, pt reports pain in neck, no numerical value given. Appearance Pt left supine in bed, all needs within reach. ADL-Treatment Therapy Code Descriptions/Definitions Functional [place] Measure: 0=Not Assessed/NA 4=Minimal Assistance 1=Total Assistance 5=Supervision or Setup 2=Maximal Assistance 6=Modified [place] 3=Moderate Assistance 7=Complete IndependenceSCALE: Activities may be completed with or without assistive devices. 6-Kvnrrzzbpf-igtkskk completes the activity by him/herself with no assistance from a helper. 5-Set-up or Clean-up Assistance-helper sets up or cleans up; patient completes activity. [place] assists only prior to or following the activity. 4-Supervision or Touching Assistance-helper provides verbal cues and/or touching/steadying and/or contact guard assistance as patient completes activity. Assistance may be provided throughout the activity or intermittently. 3-Partial/Moderate Assistance-helper does LESS THAN HALF the effort. [place] lifts, holds or supports trunk or limbs, but provides less than half the effort. 2-Substantial/Maximal Assistance-helper does MORE THAN HALF the effort. [place] lifts or holds trunk or limbs and provides more than half the effort. 6-Lrudsrncl-dvpyly does ALL the effort. Patient does none of the effort to complete the activity. Or, the assistance of 2 or more helpers is required for the patient to complete the activity. If activity was not attempted, code reason: 7-Patient Refused. 9-Not Applicable-not attempted and the patient did not perform the activity before the current illness, exacerbation or injury. 10-Not Attempted due to Environmental Limitations-(lack of equipment, weather restraints, etc.). 88-Not Attempted due to Medical Conditions or Safety Concerns. Toileting Hygiene (QC): 1 Toilet Transfer (QC): 1 Pt incontinent at end of session. Dependent to clean. Assist from nursing to don new brief. Other Treatment While sitting upright in bed, pt participated in fine motor task with goal to improve coordination, dexterity skills, pinch, grasp, and hand strength needed for functional tasks. Pt unable to maintain pinch on 1/2 inch peg. Task downgraded to 1 inch blocks. Pt still with difficulty positioning fingers. Cues to assist with R as well as to slide block to end of table in order to position through fingers. Significant time to place block into designated slots. Pt fatigues easily with task and requires rest breaks. Education OT Patient Education: Correct positioning, Modified ADL techniques, Safety issues Teaching Recipient: Patient Teaching Methods: Demonstration, Discussion Response to Teaching: Return Demonstration, Reinforcement Needed OT Short Term Goals Short Term Goals Time Frame: Sep 22, 2021 Toileting hygiene: 2 Shower/bathe self: 2 Upper body dressin Lower body dressin Putting on/taking off footwear: 3 OT Retirement Goals Scientific Manager Goals Time Frame: Oct 01, 2021 Eating (QC): 5 Oral Hygiene (QC): 6 Toileting Hygiene (QC): 4 Shower/Bathe Self (QC): 4 Upper Body Dressing (QC): 5 Lower Body Dressing (QC): 4 On/Off Footwear (QC): 4 Additional Goals: 1-Demonstrate ADL Tasks, 2-Verbalize Understanding, 3- ImproveStrength/Sara 1=Demonstrate adherence to instructed precautions during ADL tasks. 2=Patient will verbalize/demonstrate understanding of assistive devices/modifications for ADL. 3=Patient will improve strength/tolerance for activity to enable patient to perform ADL's. OT Education/Plan Problem List/Assessment Assessment: Decreased Activ Tolerance, Decreased UE Strength, Impaired Funct Balance Discharge Recommendations Plan/Recommendations: Continue POC Treatment Plan/Plan of Care Treatment,Training & Education: Yes Patient would benefit from OT for education, treatment and training to promote independence in ADL's, mobility, safety and/or upper extremity function for ADL's. Plan of Care: ADL Retraining, Functional Mobility, Group Exercise/Act as Ind, UE Funct Exercise/Act, UE Neuromus Re-Ed/Coord Treatment Duration: Oct 01, 2021 Frequency: At least 5 of 7 days/Wk (IRF) Estimated Hrs Per Day: 1.5 hours per day Agreement: Yes Rehab Potential: Fair Time/GCodes Start Time: 11:35 Stop Time: 12:05 Total Time Billed (hr/min): 30 Billed Treatment Time 1 visit FA (20 min) ADL (10 min) Nisreen Lowe OT Sep 08, 2021 12:43
--- NOTE | 2021-09-08 14:20 | Physical Therapy Daily Note ---
PT Daily Note-Current Subjective Pt laying Supine w/head elevated upon arrival. Pt agrees to PT by nodding. Pain Location: Left Location Body Site: Chest Pain Description: Ache Comment: Pt reports L chest/side and neck hurting "a little bit". Mental Status Patient Orientation: Person Attachments: Other-See Comments (Cervical collar) Transfers SCALE: Activities may be completed with or without assistive devices. 3-Xxpcskeyya-ukzobfb completes the activity by him/herself with no assistance from a helper. 5-Set-up or Clean-up Assistance-helper sets up or cleans up; patient completes activity. [place] assists only prior to or following the activity. 4-Supervision or Touching Assistance-helper provides verbal cues and/or touching/steadying and/or contact guard assistance as patient completes activity. Assistance may be provided throughout the activity or intermittently. 3-Partial/Moderate Assistance-helper does LESS THAN HALF the effort. [place] lifts, holds or supports trunk or limbs, but provides less than half the effort. 2-Substantial/Maximal Assistance-helper does MORE THAN HALF the effort. [place] lifts or holds trunk or limbs and provides more than half the effort. 6-Uyzstacmn-oadtim does ALL the effort. Patient does none of the effort to complete the activity. Or, the assistance of 2 or more helpers is required for the patient to complete the activity. If activity was not attempted, code reason: 7-Patient Refused. 9-Not Applicable-not attempted and the patient did not perform the activity before the current illness, exacerbation or injury. 10-Not Attempted due to Environmental Limitations-(lack of equipment, weather restraints, etc.). 88-Not Attempted due to Medical Conditions or Safety Concerns. Exercises Supine Ex: Ankle pumps, Quad Set, Glut sets, Heel Slides, Scooting, Hip abd/add Supine Reps: 10 Treatments Pt completes Supine EX with verbal and tactile/demo. cues. Pt resting in bed at end of tx with all needs met, call light in hand. Assessment Current Status: Fair Progress Pt demo. weakness so EX are worked on during tx. PT Short Term Goals Short Term Goals Time Frame: Sep 08, 2021 Roll Left & Right: 4 Sit to lyin Lying to sitting on side of be: 3 Sit to stand: 2 Chair/eur-cn-vomdm transfer: 2 PT Chcf Goals Manager Completions Goals PT Manager Completions Goals Time Frame: Sep 22, 2021 Roll Left & Right (QC): 4 Sit to Lying (QC): 4 Lying-Sitting on Side/Bed(QC): 4 Sit to Stand (QC): 3 Chair/Col-jq-Apefq Xfer(QC): 3 Toilet Transfer (QC): 3 Car Transfer (QC): 3 Does the Patient Walk: No and Walking Goal NOT indicated Walk 10 feet (QC): 88 Walk 50ft with 2 Turns (QC): 88 Walk 150 ft (QC): 88 Walking 10ft on Uneven Surface: 88 1 Step (curb) (QC): 88 4 Steps (QC): 88 12 Steps (QC): 88 Picking up an Object (QC): 3 Does the Pt use WC or Scooter?: Yes Wheel 50 feet with 2 turns (QC: 3 Type: Manual Wheel 150 feet: 3 Type: Manual PT Plan Problem List Problem List: Activity Tolerance, Functional Strength Treatment/Plan Treatment Plan: Continue Plan of Care Treatment Plan: Bed Mobility, Education, Functional Activity Sara, Functional Strength, Group Therapy, Safety, Therapeutic Exercise, Transfers Treatment Duration: Sep 13, 2021 Frequency: At least 5 of 7 days/Wk (IRF) Estimated Hrs Per Day: 1.5 hours per day Patient and/or Family Agrees t: Yes Safety Risks/Education Patient Education: Correct Positioning Teaching Recipient: Patient Teaching Methods: Demonstration Response to Teaching: Return Demonstration Time/GCodes Time In: 1400 Time Out: 1430 Total Billed Treatment Time: 30 Total Billed Treatment 1, EX x2 (30m) LE PUGA MANAGER FLEET Sep 08, 2021 14:20
--- NOTE | 2021-09-08 16:32 | Wound Care Assessment ---
Wound Care Assessment Date Seen by Provider: Sep 08, 2021 Time Seen by Provider: 16:23 Chief Complaint Sacral/Gluteal wounds HPI This pleasant 41 year old gentleman from the [facility] was seen in our hospital earlier this month for severe cervical stenosis. He was referred to Dr. Higuera for urgen spinal decompression due to risk for quadraplegia. He is in C- collar today and appears in good spirits. He does have some skin breakdown in his sacral region that appears pressure and moisture related. He does also have poorly controlled DM2. 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 He does also appear to have protein energy malnutrition by labs with albumin of 2.6. He does have a Tyson in place but is incontinent of bowel with loose stools currently. His sacral ulcers will need close monitoring for signs of infection as a result. 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 Cervical spinal stenosis s/p decompression. Smoking Status: Never a Smoker Alcohol Use: Denies Use Review of Systems Neurological: Weakness (Lower extremity) Exam Vital Signs Date Time Temp Pulse Resp B/P (MAP) Pulse Ox O2 Delivery O2 Flow Rate FiO2 09/08/21 09:00 Room Air 09/08/21 07:44 36.6 68 16 121/70 (87) 98 Capillary Refill : General Appearance: WD/WN, no apparent distress Neck: other (C-collar) Cardiovascular: no edema Respiratory: no accessory muscle use Extremities: no pedal edema Neurologic/Psychiatric: alert, normal mood/affect, oriented x 3 Skin: normal color, warm/dry Skin Character: other Wound #1 superior gluteal cleft: Stage 2 pressure ulcer. The epithelialization is none, there is no tunneling or undermining, drainage is small and serous, granulation is large and pink, necrotic is small and slough, margins flat. 3.5x1.3x0.2 cm Wound #2: R. buttock stage 2 pressure ulcer. The epithelialization is none, there is no tunneling or undermining. Drainage is small and serous, granulation is medium and pink, necrotic is medium and slough. Wound margins flat. Results Laboratory Tests 09/07/21 16:30: Glucometer 197H 09/07/21 20:32: Glucometer 202H 09/08/21 06:17: Glucometer 161H 09/08/21 10:45: Glucometer 163H 09/08/21 15:06: Glucometer 194H Assessment/Plan/Dx Assessment: 1. Stage 2 pressure ulcers of sacrum/buttock (also with moisture associated skinbreakdown) 2. Protein energy malnutrition 3. DM2-poor control 4. Lower extremity weakness from cervical compression 5. Incontinence of bowel/bladder Plan: 1. Cleanse wounds daily with Vashe and if soiling occurs with incontinence 2. Barrier ointment to periwound with dressing changes 3. Cover with bordered foam dressing and change daily 4. Frequent position changes for off loading 5. Good glycemic control 6. Diabetic friendly protein shakes 7. Close monitoring of periwound for signs of infection (increased erythema, induration or purulence). At risk for infection due to incontinence. ADRIENNE VILLALTA MD Sep 08, 2021 16:32
[2021-09-08 20:11] VITALS: BP 148/70
[2021-09-08] MEDS: ROSUVASTATIN 20 MG (CRESTOR) TABLET PO SCH (20:57)
[2021-09-08] MEDS: LOPERAMIDE 2 MG (IMODIUM) TABLET PO PRN (21:49)
[2021-09-09] MEDS: LOPERAMIDE 2 MG (IMODIUM) TABLET PO PRN ×2 (02:17→08:22)
[2021-09-09] MEDS: SUCRALFATE 1 GM (CARAFATE) TAB PO SCH ×4 (06:03→20:27)
[2021-09-09] MEDS: inSUlin ASPART (NovoLOG) 1 UNIT/0.01 ML (CHARGE PER UNIT) SC SCH ×4 (06:05→21:10)
--- NOTE | 2021-09-09 07:23 | PM&R Progress Note ---
Subjective HPI/CC On Admission Date Seen by Provider: Sep 09, 2021 Time Seen by Provider: 12:15 Subjective/Events-last exam 09/09/2021: Patient doing well No pain is reported Blood sugars reviewed Blood pressure reviewed Able to feed himself 09/08/2021: Pt is doing well Eating well Able to feed himself with his right hand Loose stools will be given Imodium 09/07/2021: Pt is doing well Blood sugar is 127 Bowels are loose Coccyx has a decubitus ulcer and we will monitor that closely 09/06/2021: Pt is doing a lot better Hemoglobin was 10.2 Has a decubitus ulcer on his coccyx Low bp so holding Norvasc Pilar lift is being used 09/05/2021: Patient doing really well Requiring Pilar lift though Lovenox started today Blood sugars are variable 09/04/2021: Patient doing very well Requiring Pilar lift since he cannot use the sit to stand at this current time Moving his arms and hands better Blood sugar is a little bit elevated Blood pressure better Lovenox will be started tomorrow 09/03/2021: Pt is doing well Took a shower but then he couldn't really get back in bed Had some emesis so we'll start Protonix 40 mg BID and Carafate Aguilar cath remains due to retention 09/02/2021: Pt settling in well Holding all insulin due to hypoglycemia Had emesis last night Fed himself a bit today Keeping aguilar in for retention Review of Systems General: Fatigue, Malaise Neurological: Weakness, Incoordination Objective Exam Vital Signs Vital Signs Date Time Temp Pulse Resp B/P (MAP) Pulse Ox O2 Delivery O2 Flow Rate FiO2 09/09/21 21:14 Room Air 09/09/21 19:46 36.6 71 16 122/77 (92) 98 Capillary Refill : General Appearance: No Apparent Distress, WD/WN, Chronically ill, Obese HEENT: PERRL/EOMI, Normal ENT Inspection, Pharynx Normal Neck: Full Range of Motion, Normal Inspection, Non Tender, Supple, Carotid Bruit Respiratory: Chest Non Tender, Lungs Clear, Normal Breath Sounds, No Accessory Muscle Use, No Respiratory Distress Cardiovascular: Regular Rate, Rhythm, No Edema, No Gallop, No JVD, No Murmur, Normal Peripheral Pulses Gastrointestinal: Normal Bowel Sounds, No Organomegaly, No Pulsatile Mass, Non Tender, Soft Back: Normal Inspection, No CVA Tenderness, No Vertebral Tenderness, Decreased Range of Motion Extremity: Normal Capillary Refill, Normal Inspection, Normal Range of Motion, Non Tender, No Calf Tenderness, No Pedal Edema Neurologic/Psychiatric: Alert, Oriented x3, Normal Mood/Affect, Abnormal Gait, Motor Weakness Skin: Normal Color, Warm/Dry Lymphatic: No Adenopathy Results/Procedures Lab Patient resulted labs reviewed. FIM Transfers Therapy Code Descriptions/Definitions Functional [place] Measure: 0=Not Assessed/NA 4=Minimal Assistance 1=Total Assistance 5=Supervision or Setup 2=Maximal Assistance 6=Modified [place] 3=Moderate Assistance 7=Complete IndependenceSCALE: Activities may be completed with or without assistive devices. 8-Upwpyjrhjl-qdulbne completes the activity by him/herself with no assistance from a helper. 5-Set-up or Clean-up Assistance-helper sets up or cleans up; patient completes activity. [place] assists only prior to or following the activity. 4-Supervision or Touching Assistance-helper provides verbal cues and/or touching/steadying and/or contact guard assistance as patient completes activity. Assistance may be provided throughout the activity or intermittently. 3-Partial/Moderate Assistance-helper does LESS THAN HALF the effort. [place] lifts, holds or supports trunk or limbs, but provides less than half the effort. 2-Substantial/Maximal Assistance-helper does MORE THAN HALF the effort. [place] lifts or holds trunk or limbs and provides more than half the effort. 0-Qgnahogog-allugu does ALL the effort. Patient does none of the effort to complete the activity. Or, the assistance of 2 or more helpers is required for the patient to complete the activity. If activity was not attempted, code reason: 7-Patient Refused. 9-Not Applicable-not attempted and the patient did not perform the activity before the current illness, exacerbation or injury. 10-Not Attempted due to Environmental Limitations-(lack of equipment, weather restraints, etc.). 88-Not Attempted due to Medical Conditions or Safety Concerns. Roll Left to Right (QC): 3 Sit to Lying (QC): 3 Sit to Stand (QC): 3 Chair/Rba-yz-Lmbpi Xfer(QC): 3 Car Transfer (QC): 88 Gait Training Does the Patient Walk?: No and Walking Goal NOT indicated Walk 10 feet (QC): 88 Walk 50 ft with 2 Turns(QC): 88 Walk 150 ft (QC): 88 Walking 10ft/uneven surface-QC: 88 Wheelchair Training Does the Pt Use a Wheelchair?: Yes Wheel 50 ft with 2 turns (QC): 3 Wheel 150 ft (QC): 88 Type of Wheelchair: Manual Stair Training 1 Step (curb) (QC): 88 4 Steps (QC): 88 12 Steps (QC): 88 Balance Picking up an Object (QC): 88 ADL-Treatment Eating (QC): 4 Oral Hygiene (QC): 4 Shower/Bathe Self (QC): 2 Upper Body Dressing (QC): 2 Lower Body Dressing (QC): 1 On/Off Footwear (QC): 1 Toileting Hygiene (QC): 1 Toilet Transfer (QC): 1 Assessment/Plan Assessment and Plan Assess & Plan/Chief Complaint Assessment: 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 Diabetes dld-uq-vuluear Hypertension Hyperlipidemia Previous CVA with right-sided weakness Coccyx decubitus ulcers Plan: Aggressive therapy Pain control Monitor bowel function Insulin 09/02/2021: Supportive care Aggressive therapy Hold insulin 09/03/2021: Supportive care Cervical spine collar Aguilar catheter 09/04/2021: Supportive care Cervical spine collar Aguialr catheter Pilar lift We'll start Lovenox tomorrow 09/05/2021: Supportive care Lovenox Maintain Aguilar 09/06/2021: Maintain Aguilar Continues to be Pilar lift 09/07/2021: Coccyx decubitus ulcer management 09/08/2021: Imodium for loose stools Continue to progress 09/09/2021: Imodium for loose stools Supportive care (1) Cervical spine syndrome (2) Myoclonus (3) Type 2 diabetes mellitus without complication (4) Primary hypertension (5) Mixed hyperlipidemia (6) History of CVA with residual deficit (7) Right sided weakness (8) Cervical cord myelomalacia (9) Spinal cord contusion (10) Fall Status: Acute SHAYNE JAMES DO Sep 09, 2021 07:22
[2021-09-09 07:32] VITALS: BP 113/59
[2021-09-09] MEDS: amLODIPine 5 MG (NORVASC) TAB PO SCH (08:21)
[2021-09-09] MEDS: PANTOPRAZOLE 40 MG (PROTONIX) TAB PO SCH ×2 (08:21→20:27)
[2021-09-09] MEDS: meTOprolol TARTRATE 25 MG (LOPRESSOR) TABLET PO SCH ×2 (08:22→20:27)
[2021-09-09] MEDS: ENOXAPARIN 40 MG/0.4 ML (LOVENOX) SYR SC SCH (08:22)
[2021-09-09] MEDS: polyethylene glycoL POWDER 17 GM (MIRALAX) PACK PO SCH ×2 (08:23→21:10)
[2021-09-09] MEDS: DOCUSATE SODIUM 100 MG (COLACE) CAP PO SCH ×2 (08:23→21:10)
[2021-09-09] MEDS: SENNA W/DOCUSATE (SENOKOT S) TABLET PO SCH ×2 (08:24→21:10)
--- NOTE | 2021-09-09 08:58 | Physical Therapy Daily Note ---
PT Daily Note-Current Subjective Patient sitting EOB pre tx, already working with OT, has unrated left shoulder pain, agrees to PT. Will be co-treating with OT due to poor patient mobility, strength, endurance, severe debility, coordinate UE and LE with activity, safety and reduce risk of falls. Appearance Patient in recliner post tx with nurse call, phone, tray, veronica sling under him so nursing can get him back to bed. Mental Status Patient Orientation: Person, Unable to Assess Attachments: Tyson Catheter cervical collar Transfers SCALE: Activities may be completed with or without assistive devices. 3-Lmhqmlfhxc-tuovwxx completes the activity by him/herself with no assistance from a helper. 5-Set-up or Clean-up Assistance-helper sets up or cleans up; patient completes activity. [place] assists only prior to or following the activity. 4-Supervision or Touching Assistance-helper provides verbal cues and/or touching/steadying and/or contact guard assistance as patient completes activity. Assistance may be provided throughout the activity or intermittently. 3-Partial/Moderate Assistance-helper does LESS THAN HALF the effort. [place] lifts, holds or supports trunk or limbs, but provides less than half the effort. 2-Substantial/Maximal Assistance-helper does MORE THAN HALF the effort. [place] lifts or holds trunk or limbs and provides more than half the effort. 9-Vdtexlglh-bjhaga does ALL the effort. Patient does none of the effort to complete the activity. Or, the assistance of 2 or more helpers is required for the patient to complete the activity. If activity was not attempted, code reason: 7-Patient Refused. 9-Not Applicable-not attempted and the patient did not perform the activity before the current illness, exacerbation or injury. 10-Not Attempted due to Environmental Limitations-(lack of equipment, weather restraints, etc.). 88-Not Attempted due to Medical Conditions or Safety Concerns. Sit to Stand (QC): 3 Chair/Fjz-nn-Hwvvq Xfer(QC): 3 Patient sits and works on core strength and sitting balance and then transfers to with mod assist, wheels to the therapy gym and stands in the standing frame for about 15 min while performing UE activity at the same time, sits back down and propels down the hallway and back to his room and then mod assist stand pivot back to recliner. Wheelchair Training Does the Pt Use a Wheelchair?: Yes Wheel 50 ft with 2 turns (QC): 3 Type of Wheelchair: Manual 100', 150' Treatments PT performed sitting balance and stability, transfers, WC mobility, standing, OT performed eating, UE positioning and safety during activity, UE activity. Assessment Current Status: Poor Progress Patient has a lot of left shoulder pain today, nurse gives pain meds. PT Short Term Goals Short Term Goals Time Frame: Sep 08, 2021 Roll Left & Right: 4 Sit to lyin Lying to sitting on side of be: 3 Sit to stand: 2 Chair/jnp-ne-dmtni transfer: 2 PT Cook Helper Fruit Goals Care Home Goals PT Care Home Goals Time Frame: Sep 22, 2021 Roll Left & Right (QC): 4 Sit to Lying (QC): 4 Lying-Sitting on Side/Bed(QC): 4 Sit to Stand (QC): 3 Chair/Hew-wc-Dwuia Xfer(QC): 3 Toilet Transfer (QC): 3 Car Transfer (QC): 3 Does the Patient Walk: No and Walking Goal NOT indicated Walk 10 feet (QC): 88 Walk 50ft with 2 Turns (QC): 88 Walk 150 ft (QC): 88 Walking 10ft on Uneven Surface: 88 1 Step (curb) (QC): 88 4 Steps (QC): 88 12 Steps (QC): 88 Picking up an Object (QC): 3 Does the Pt use WC or Scooter?: Yes Wheel 50 feet with 2 turns (QC: 3 Type: Manual Wheel 150 feet: 3 Type: Manual PT Plan Problem List Problem List: Activity Tolerance, Functional Strength, Safety, Balance, Gait, Transfer, Bed Mobility, ROM Treatment/Plan Treatment Plan: Continue Plan of Care Treatment Plan: Bed Mobility, Education, Functional Activity Sara, Functional Strength, Group Therapy, Safety, Therapeutic Exercise, Transfers Treatment Duration: Sep 13, 2021 Frequency: At least 5 of 7 days/Wk (IRF) Estimated Hrs Per Day: 1.5 hours per day Patient and/or Family Agrees t: Yes Safety Risks/Education Patient Education: Transfer Techniques, Correct Positioning, W/C Management, Safety Issues Teaching Recipient: Patient Teaching Methods: Demonstration, Discussion Response to Teaching: Reinforcement Needed Time/GCodes Time In: 0800 Time Out: 0900 Total Billed Treatment 1 visit FA 60' co-treated for 60' KRTEK,VERONICA PT Sep 09, 2021 08:58
--- NOTE | 2021-09-09 09:00 | Occupational Ther Daily Note ---
OT Current Status-Daily Note Subjective Pt grimacing in pain throughout session. Appears to be coming from neck and/or L shoulder. RN notified. Co-treat with PT for part of session ([id number]) due to needing 2 skilled clin icians to progress indep with adls and transfers. Appearance Left sitting in recliner, all needs within reach. ADL-Treatment Therapy Code Descriptions/Definitions Functional [place] Measure: 0=Not Assessed/NA 4=Minimal Assistance 1=Total Assistance 5=Supervision or Setup 2=Maximal Assistance 6=Modified [place] 3=Moderate Assistance 7=Complete IndependenceSCALE: Activities may be completed with or without assistive devices. 7-Dbkefgswwr-nuhehcc completes the activity by him/herself with no assistance from a helper. 5-Set-up or Clean-up Assistance-helper sets up or cleans up; patient completes activity. [place] assists only prior to or following the activity. 4-Supervision or Touching Assistance-helper provides verbal cues and/or touching/steadying and/or contact guard assistance as patient completes activity. Assistance may be provided throughout the activity or intermittently. 3-Partial/Moderate Assistance-helper does LESS THAN HALF the effort. [place] lifts, holds or supports trunk or limbs, but provides less than half the effort. 2-Substantial/Maximal Assistance-helper does MORE THAN HALF the effort. [place] lifts or holds trunk or limbs and provides more than half the effort. 0-Ozlrzkzyx-iazjdb does ALL the effort. Patient does none of the effort to complete the activity. Or, the assistance of 2 or more helpers is required for the patient to complete the activity. If activity was not attempted, code reason: 7-Patient Refused. 9-Not Applicable-not attempted and the patient did not perform the activity before the current illness, exacerbation or injury. 10-Not Attempted due to Environmental Limitations-(lack of equipment, weather restraints, etc.). 88-Not Attempted due to Medical Conditions or Safety Concerns. Oral Hygiene (QC): 4 Lower Body Dressing (QC): 1 On/Off Footwear: 1 Toileting Hygiene (QC): 1 Toilet Transfer (QC): 1 Pt incontinent of stool at OT arrival. Dependent for latonya care and donning new brief at bed level. Supine>sit: Min A to elevate torso. Post set up, pt ate breakfast sitting EOB. Intermittent single UE support for balance. This is the first eating task with zero trunk/back support. Pt tolerated fairly well but does seem to fatigue quicker. Cues to take smaller bites and swallowing before adding more food to mouth. Grooming tasks performed at w/c level seated at the sink. HOHA to maintain grasp on toothpaste with L hand as right hand twisted cap off. Pt able to utilize LUE as indep stabilizer on toothbrush as he applied toothpaste with right hand. He brushed all quadrants with R hand. HOHA to squeeze excess water out of washcloth with L hand and OT encouraged pt to assist with R hand. Other Treatment Pt participated in standing activities while in sit<>stand machine. Goal to promote increased LE strength, weight bearing, functional reach, Bilateral grasp/pinch and dexterity skills. Intermittent min a under L elbow when reaching over ~60 degrees. No lifting over 90 degrees secondary to pain. Improved grasp when reaching for large cones. Extra time to extend 4th and 5th digit. Due to poor coordination and dexterity skills, pt having significant difficulty unlocking phone. OT to assist/educated pt in phone apps to assist with technology in future sessions. Education OT Patient Education: Correct positioning, Modified ADL techniques, Purpose of tx/functional activities, Rehab process, Safety issues, Transfer techniques, W/C management Teaching Recipient: Patient Teaching Methods: Demonstration, Discussion Response to Teaching: Return Demonstration, Reinforcement Needed OT Short Term Goals Short Term Goals Time Frame: Sep 22, 2021 Toileting hygiene: 2 Shower/bathe self: 2 Upper body dressin Lower body dressin Putting on/taking off footwear: 3 OT Mixer Operator Helper Hot Metal Goals [facility] Goals Time Frame: Oct 01, 2021 Eating (QC): 5 Oral Hygiene (QC): 6 Toileting Hygiene (QC): 4 Shower/Bathe Self (QC): 4 Upper Body Dressing (QC): 5 Lower Body Dressing (QC): 4 On/Off Footwear (QC): 4 Additional Goals: 1-Demonstrate ADL Tasks, 2-Verbalize Understanding, 3- ImproveStrength/Sara 1=Demonstrate adherence to instructed precautions during ADL tasks. 2=Patient will verbalize/demonstrate understanding of assistive devices/modifications for ADL. 3=Patient will improve strength/tolerance for activity to enable patient to perform ADL's. OT Education/Plan Problem List/Assessment Assessment: Decreased Activ Tolerance, Decreased Safety Aware, Decreased UE Strength, Dependent Transfers, Impaired Coordination, Impaired Funct Balance, Impaired I ADL's, Impaired Self-Care Skills, Restricted Funct UE ROM Discharge Recommendations Plan/Recommendations: Continue POC Therapy Discharge Recommendati: Post Acute OT Treatment Plan/Plan of Care Treatment,Training & Education: Yes Patient would benefit from OT for education, treatment and training to promote independence in ADL's, mobility, safety and/or upper extremity function for ADL's. Plan of Care: ADL Retraining, Functional Mobility, Group Exercise/Act as Ind, UE Funct Exercise/Act, UE Neuromus Re-Ed/Coord Treatment Duration: Oct 01, 2021 Frequency: At least 5 of 7 days/Wk (IRF) Estimated Hrs Per Day: 1.5 hours per day Agreement: Yes Rehab Potential: Fair Time/GCodes Start Time: 07:42 Stop Time: 09:00 Total Time Billed (hr/min): 78 Billed Treatment Time 1 visit ADL x2 (35 min) FA x 3 (43 min) Nisreen Lowe OT Sep 09, 2021 09:00
[2021-09-09] MEDS ORDERED: HYPOCHLOROUS ACID/NaCl (VASHE) 250 ML IR PRN (09:30)
--- NOTE | 2021-09-09 11:58 | Occupational Ther Daily Note ---
OT Current Status-Daily Note Subjective Pt sitting in chair, agreeable to treatment. Appearance Pt left sitting in recliner. all needs within reach. ADL-Treatment Therapy Code Descriptions/Definitions Functional [place] Measure: 0=Not Assessed/NA 4=Minimal Assistance 1=Total Assistance 5=Supervision or Setup 2=Maximal Assistance 6=Modified [place] 3=Moderate Assistance 7=Complete IndependenceSCALE: Activities may be completed with or without assistive devices. 1-Xfmtpbxoxu-nugdmyf completes the activity by him/herself with no assistance from a helper. 5-Set-up or Clean-up Assistance-helper sets up or cleans up; patient completes activity. [place] assists only prior to or following the activity. 4-Supervision or Touching Assistance-helper provides verbal cues and/or touching/steadying and/or contact guard assistance as patient completes activity. Assistance may be provided throughout the activity or intermittently. 3-Partial/Moderate Assistance-helper does LESS THAN HALF the effort. [place] lifts, holds or supports trunk or limbs, but provides less than half the effort. 2-Substantial/Maximal Assistance-helper does MORE THAN HALF the effort. [place] lifts or holds trunk or limbs and provides more than half the effort. 0-Bzratbwpx-hlxcuq does ALL the effort. Patient does none of the effort to complete the activity. Or, the assistance of 2 or more helpers is required for the patient to complete the activity. If activity was not attempted, code reason: 7-Patient Refused. 9-Not Applicable-not attempted and the patient did not perform the activity before the current illness, exacerbation or injury. 10-Not Attempted due to Environmental Limitations-(lack of equipment, weather restraints, etc.). 88-Not Attempted due to Medical Conditions or Safety Concerns. Other Treatment Pt reports difficulty connecting to wi-fi. Assistance provided. After observation with phone, pt exhibits difficulty typing and manipulating phone buttons secondary to reduced coordination. OT attempts to set up face recognition vs having to type in a password each time. Phone currently does not have option to scan face. Pt could benefit from voice to text apps/setting. Education OT Patient Education: Modified ADL techniques Teaching Recipient: Patient Teaching Methods: Demonstration, Discussion Response to Teaching: Return Demonstration, Reinforcement Needed OT Short Term Goals Short Term Goals Time Frame: Sep 22, 2021 Toileting hygiene: 2 Shower/bathe self: 2 Upper body dressin Lower body dressin Putting on/taking off footwear: 3 OT Green Chain Operator Goals [facility] Goals Time Frame: Oct 01, 2021 Eating (QC): 5 Oral Hygiene (QC): 6 Toileting Hygiene (QC): 4 Shower/Bathe Self (QC): 4 Upper Body Dressing (QC): 5 Lower Body Dressing (QC): 4 On/Off Footwear (QC): 4 Additional Goals: 1-Demonstrate ADL Tasks, 2-Verbalize Understanding, 3- ImproveStrength/Sara 1=Demonstrate adherence to instructed precautions during ADL tasks. 2=Patient will verbalize/demonstrate understanding of assistive devices/modifications for ADL. 3=Patient will improve strength/tolerance for activity to enable patient to perform ADL's. OT Education/Plan Problem List/Assessment Assessment: Decreased Activ Tolerance, Decreased Safety Aware, Decreased UE Strength, Dependent Transfers, Impaired Coordination, Impaired Funct Balance, Impaired I ADL's, Impaired Self-Care Skills, Restricted Funct UE ROM Discharge Recommendations Plan/Recommendations: Continue POC Treatment Plan/Plan of Care Treatment,Training & Education: Yes Patient would benefit from OT for education, treatment and training to promote independence in ADL's, mobility, safety and/or upper extremity function for ADL's. Plan of Care: ADL Retraining, Functional Mobility, Group Exercise/Act as Ind, UE Funct Exercise/Act, UE Neuromus Re-Ed/Coord Treatment Duration: Oct 01, 2021 Frequency: At least 5 of 7 days/Wk (IRF) Estimated Hrs Per Day: 1.5 hours per day Agreement: Yes Rehab Potential: Fair Time/GCodes Start Time: 11:15 Stop Time: 11:30 Total Time Billed (hr/min): 15 Billed Treatment Time 1 visit Nisreen Del Cid OT Sep 09, 2021 11:58
--- NOTE | 2021-09-09 13:30 | Physical Therapy Daily Note ---
PT Daily Note-Current Subjective Patient in recliner pre tx, agrees to PT, has no complaints of pain. Appearance Patient in recliner post tx with nurse call, phone, tray, all needs met. Mental Status Patient Orientation: Person, Unable to Assess cervical collar Transfers SCALE: Activities may be completed with or without assistive devices. 8-Bhdtfbiqvf-yuczsrj completes the activity by him/herself with no assistance from a helper. 5-Set-up or Clean-up Assistance-helper sets up or cleans up; patient completes activity. [place] assists only prior to or following the activity. 4-Supervision or Touching Assistance-helper provides verbal cues and/or touching/steadying and/or contact guard assistance as patient completes activity. Assistance may be provided throughout the activity or intermittently. 3-Partial/Moderate Assistance-helper does LESS THAN HALF the effort. [place] lifts, holds or supports trunk or limbs, but provides less than half the effort. 2-Substantial/Maximal Assistance-helper does MORE THAN HALF the effort. [place] lifts or holds trunk or limbs and provides more than half the effort. 7-Kyxkcfqaw-pfecye does ALL the effort. Patient does none of the effort to complete the activity. Or, the assistance of 2 or more helpers is required for the patient to complete the activity. If activity was not attempted, code reason: 7-Patient Refused. 9-Not Applicable-not attempted and the patient did not perform the activity before the current illness, exacerbation or injury. 10-Not Attempted due to Environmental Limitations-(lack of equipment, weather restraints, etc.). 88-Not Attempted due to Medical Conditions or Safety Concerns. Exercises Supine Ex: Ankle pumps, Quad Set, Glut sets, Heel Slides, Short Arc Quads (AAROM), Straight leg raise (AAROM), Hip abd/add Supine Reps: 20 (done in recliner with legs elevated) Seated Therapy Exercises: Hip flexion, Hip abd/add (with ball and RTB) Seated Reps: 20 LAQ alternating for 5 min Treatments LE strengthening Assessment Current Status: Fair Progress Patient seems to have slowly gained a little strength in his left leg but still has poor coordination PT Short Term Goals Short Term Goals Time Frame: Sep 08, 2021 Roll Left & Right: 4 Sit to lyin Lying to sitting on side of be: 3 Sit to stand: 2 Chair/loi-af-ddtfr transfer: 2 PT Longterm Goals Longterm Goals PT Tank Refinisher Goals Time Frame: Sep 22, 2021 Roll Left & Right (QC): 4 Sit to Lying (QC): 4 Lying-Sitting on Side/Bed(QC): 4 Sit to Stand (QC): 3 Chair/Jel-bq-Pgxhf Xfer(QC): 3 Toilet Transfer (QC): 3 Car Transfer (QC): 3 Does the Patient Walk: No and Walking Goal NOT indicated Walk 10 feet (QC): 88 Walk 50ft with 2 Turns (QC): 88 Walk 150 ft (QC): 88 Walking 10ft on Uneven Surface: 88 1 Step (curb) (QC): 88 4 Steps (QC): 88 12 Steps (QC): 88 Picking up an Object (QC): 3 Does the Pt use WC or Scooter?: Yes Wheel 50 feet with 2 turns (QC: 3 Type: Manual Wheel 150 feet: 3 Type: Manual PT Plan Problem List Problem List: Activity Tolerance, Functional Strength, Safety, Balance, Gait, Transfer, Bed Mobility, ROM Treatment/Plan Treatment Plan: Continue Plan of Care Treatment Plan: Bed Mobility, Education, Functional Activity Sara, Functional Strength, Group Therapy, Safety, Therapeutic Exercise, Transfers Treatment Duration: Sep 13, 2021 Frequency: At least 5 of 7 days/Wk (IRF) Estimated Hrs Per Day: 1.5 hours per day Patient and/or Family Agrees t: Yes Safety Risks/Education Patient Education: Correct Positioning, Safety Issues Teaching Recipient: Patient Teaching Methods: Demonstration, Discussion Response to Teaching: Reinforcement Needed Time/GCodes Time In: 1300 Time Out: 1330 Total Billed Treatment Time: 30 Total Billed Treatment 1 visit EX VERONICA OCONNOR PT Sep 09, 2021 13:30
[2021-09-09 19:46] VITALS: BP 122/77
[2021-09-09] MEDS: ROSUVASTATIN 20 MG (CRESTOR) TABLET PO SCH (20:27)
[2021-09-10] MEDS: SUCRALFATE 1 GM (CARAFATE) TAB PO SCH ×4 (05:32→20:58)
[2021-09-10] MEDS: inSUlin ASPART (NovoLOG) 1 UNIT/0.01 ML (CHARGE PER UNIT) SC SCH ×4 (05:35→20:58)
--- NOTE | 2021-09-10 06:30 | PM&R Progress Note ---
Subjective HPI/CC On Admission Date Seen by Provider: Sep 10, 2021 Time Seen by Provider: 10:30 Subjective/Events-last exam 09/10/21: Patient doing remarkably well Gaining function with hands and feet Loose BM's Blood sugars 272 Checked meds and labs 09/09/2021: Patient doing well No pain is reported Blood sugars reviewed Blood pressure reviewed Able to feed himself 09/08/2021: Pt is doing well Eating well Able to feed himself with his right hand Loose stools will be given Imodium 09/07/2021: Pt is doing well Blood sugar is 127 Bowels are loose Coccyx has a decubitus ulcer and we will monitor that closely 09/06/2021: Pt is doing a lot better Hemoglobin was 10.2 Has a decubitus ulcer on his coccyx Low bp so holding Norvasc Pilar lift is being used 09/05/2021: Patient doing really well Requiring Pilar lift though Lovenox started today Blood sugars are variable 09/04/2021: Patient doing very well Requiring Pilar lift since he cannot use the sit to stand at this current time Moving his arms and hands better Blood sugar is a little bit elevated Blood pressure better Lovenox will be started tomorrow 09/03/2021: Pt is doing well Took a shower but then he couldn't really get back in bed Had some emesis so we'll start Protonix 40 mg BID and Carafate Aguilar cath remains due to retention 09/02/2021: Pt settling in well Holding all insulin due to hypoglycemia Had emesis last night Fed himself a bit today Keeping aguilar in for retention Review of Systems General: Fatigue, Malaise Neurological: Weakness, Incoordination Objective Exam Vital Signs Vital Signs Date Time Temp Pulse Resp B/P (MAP) Pulse Ox O2 Delivery O2 Flow Rate FiO2 09/10/21 20:00 36.6 78 20 124/66 (85) 98 Room Air Capillary Refill : General Appearance: No Apparent Distress, WD/WN, Chronically ill, Obese HEENT: PERRL/EOMI, Normal ENT Inspection, Pharynx Normal Neck: Full Range of Motion, Normal Inspection, Non Tender, Supple, Carotid Bruit Respiratory: Chest Non Tender, Lungs Clear, Normal Breath Sounds, No Accessory Muscle Use, No Respiratory Distress Cardiovascular: Regular Rate, Rhythm, No Edema, No Gallop, No JVD, No Murmur, Normal Peripheral Pulses Gastrointestinal: Normal Bowel Sounds, No Organomegaly, No Pulsatile Mass, Non Tender, Soft Back: Normal Inspection, No CVA Tenderness, No Vertebral Tenderness, Decreased Range of Motion Extremity: Normal Capillary Refill, Normal Inspection, Normal Range of Motion, Non Tender, No Calf Tenderness, No Pedal Edema Neurologic/Psychiatric: Alert, Oriented x3, Normal Mood/Affect, Abnormal Gait, Motor Weakness Skin: Normal Color, Warm/Dry Lymphatic: No Adenopathy Results/Procedures Lab Patient resulted labs reviewed. FIM Transfers Therapy Code Descriptions/Definitions Functional [place] Measure: 0=Not Assessed/NA 4=Minimal Assistance 1=Total Assistance 5=Supervision or Setup 2=Maximal Assistance 6=Modified [place] 3=Moderate Assistance 7=Complete IndependenceSCALE: Activities may be completed with or without assistive devices. 8-[place]-afrdzaj completes the activity by him/herself with no assistance from a helper. 5-Set-up or Clean-up Assistance-helper sets up or cleans up; patient completes activity. [place] assists only prior to or following the activity. 4-Supervision or Touching Assistance-helper provides verbal cues and/or touching/steadying and/or contact guard assistance as patient completes activity. Assistance may be provided throughout the activity or intermittently. 3-Partial/Moderate Assistance-helper does LESS THAN HALF the effort. [place] lifts, holds or supports trunk or limbs, but provides less than half the effort. 2-Substantial/Maximal Assistance-helper does MORE THAN HALF the effort. [place] lifts or holds trunk or limbs and provides more than half the effort. 3-Suoqrlpxy-oaanai does ALL the effort. Patient does none of the effort to complete the activity. Or, the assistance of 2 or more helpers is required for the patient to complete the activity. If activity was not attempted, code reason: 7-Patient Refused. 9-Not Applicable-not attempted and the patient did not perform the activity before the current illness, exacerbation or injury. 10-Not Attempted due to Environmental Limitations-(lack of equipment, weather restraints, etc.). 88-Not Attempted due to Medical Conditions or Safety Concerns. Roll Left to Right (QC): 3 Sit to Lying (QC): 3 Sit to Stand (QC): 3 Chair/Sow-ft-Kdduk Xfer(QC): 3 Car Transfer (QC): 88 Gait Training Does the Patient Walk?: No and Walking Goal NOT indicated Walk 10 feet (QC): 88 Walk 50 ft with 2 Turns(QC): 88 Walk 150 ft (QC): 88 Walking 10ft/uneven surface-QC: 88 Wheelchair Training Does the Pt Use a Wheelchair?: Yes Wheel 50 ft with 2 turns (QC): 3 Wheel 150 ft (QC): 88 Type of Wheelchair: Manual Stair Training 1 Step (curb) (QC): 88 4 Steps (QC): 88 12 Steps (QC): 88 Balance Picking up an Object (QC): 88 ADL-Treatment Eating (QC): 4 Oral Hygiene (QC): 4 Shower/Bathe Self (QC): 2 Upper Body Dressing (QC): 2 Lower Body Dressing (QC): 1 On/Off Footwear (QC): 1 Toileting Hygiene (QC): 1 Toilet Transfer (QC): 1 Assessment/Plan Assessment and Plan Assess & Plan/Chief Complaint Assessment: 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 Diabetes ulc-hj-obxerqj Hypertension Hyperlipidemia Previous CVA with right-sided weakness Coccyx decubitus ulcers Plan: Aggressive therapy Pain control Monitor bowel function Insulin 09/02/2021: Supportive care Aggressive therapy Hold insulin 09/03/2021: Supportive care Cervical spine collar Aguilar catheter 09/04/2021: Supportive care Cervical spine collar Aguilar catheter Pilar lift We'll start Lovenox tomorrow 09/05/2021: Supportive care Lovenox Maintain Aguilar 09/06/2021: Maintain Aguilar Continues to be Pilar lift 09/07/2021: Coccyx decubitus ulcer management 09/08/2021: Imodium for loose stools Continue to progress 09/09/2021: Imodium for loose stools Supportive care 09/10/2021: Supportive care Dramatic improvement (1) Cervical spine syndrome (2) Myoclonus (3) Type 2 diabetes mellitus without complication (4) Primary hypertension (5) Mixed hyperlipidemia (6) History of CVA with residual deficit (7) Right sided weakness (8) Cervical cord myelomalacia (9) Spinal cord contusion (10) Fall Status: Acute SHAYNE JAMES DO Sep 10, 2021 06:30
[2021-09-10] MEDS: SENNA W/DOCUSATE (SENOKOT S) TABLET PO SCH ×2 (07:24→19:49)
[2021-09-10] MEDS: polyethylene glycoL POWDER 17 GM (MIRALAX) PACK PO SCH ×2 (07:24→19:49)
[2021-09-10] MEDS: DOCUSATE SODIUM 100 MG (COLACE) CAP PO SCH ×2 (07:24→19:48)
[2021-09-10 07:25] VITALS: BP 115/71
[2021-09-10] MEDS: ENOXAPARIN 40 MG/0.4 ML (LOVENOX) SYR SC SCH (07:36)
[2021-09-10] MEDS: amLODIPine 5 MG (NORVASC) TAB PO SCH (07:37)
[2021-09-10] MEDS: meTOprolol TARTRATE 25 MG (LOPRESSOR) TABLET PO SCH ×2 (07:37→20:59)
[2021-09-10] MEDS: PANTOPRAZOLE 40 MG (PROTONIX) TAB PO SCH ×2 (07:37→20:59)
--- NOTE | 2021-09-10 08:56 | Physical Therapy Daily Note ---
PT Daily Note-Current Subjective Patient sitting EOB pre tx, already working with OT, voices no complaints of pain, agrees to PT. Will be co-treating with OT due to poor patient mobility, strength, endurance, severe debility, coordinate UE and LE with activity, safety and reduce risk of falls. Appearance Patient in recliner post tx with nurse call, phone, tray, veronica sling under patient if nursing needs to get him back to bed. Mental Status Patient Orientation: Person, Unable to Assess Attachments: Tyson Catheter Transfers SCALE: Activities may be completed with or without assistive devices. 8-Obtsxmhoun-diwsmws completes the activity by him/herself with no assistance from a helper. 5-Set-up or Clean-up Assistance-helper sets up or cleans up; patient completes activity. [place] assists only prior to or following the activity. 4-Supervision or Touching Assistance-helper provides verbal cues and/or touching/steadying and/or contact guard assistance as patient completes activity. Assistance may be provided throughout the activity or intermittently. 3-Partial/Moderate Assistance-helper does LESS THAN HALF the effort. [place] lifts, holds or supports trunk or limbs, but provides less than half the effort. 2-Substantial/Maximal Assistance-helper does MORE THAN HALF the effort. [place] lifts or holds trunk or limbs and provides more than half the effort. 6-Dxyuwcnex-mggjft does ALL the effort. Patient does none of the effort to complete the activity. Or, the assistance of 2 or more helpers is required for the patient to complete the activity. If activity was not attempted, code reason: 7-Patient Refused. 9-Not Applicable-not attempted and the patient did not perform the activity before the current illness, exacerbation or injury. 10-Not Attempted due to Environmental Limitations-(lack of equipment, weather restraints, etc.). 88-Not Attempted due to Medical Conditions or Safety Concerns. Sit to Stand (QC): 3 Chair/Wzj-ya-Iieyc Xfer(QC): 3 Patient finished dressing at bedside, needed assist with sitting balance during this. After getting to therapy gym patient performed a mod assist stand pivot transfer to therapy table and performed UE activities and reaching to work on core strength and balance, then mod assist stand pivot transfer back to and back to his room. Wheelchair Training Does the Pt Use a Wheelchair?: Yes Wheel 50 ft with 2 turns (QC): 3 Wheel 150 ft (QC): 3 Type of Wheelchair: Manual 150'x2, uses right arm and leg, needs min assist to propel due to weakness Treatments PT performed sitting balance and strengthening, transfers, WC mobility, OT performed dressing, UE activity, UE positioning and safety during activity. Assessment Current Status: Fair Progress Patient very fatigued after this tx, he needs continued work on core balance PT Short Term Goals Short Term Goals Time Frame: Sep 08, 2021 Roll Left & Right: 4 Sit to lyin Lying to sitting on side of be: 3 Sit to stand: 2 Chair/zke-cl-feoex transfer: 2 PT Steam Gigger Goals Steam Gigger Goals PT Custodial Goals Time Frame: Sep 22, 2021 Roll Left & Right (QC): 4 Sit to Lying (QC): 4 Lying-Sitting on Side/Bed(QC): 4 Sit to Stand (QC): 3 Chair/Lsu-yv-Uqdwu Xfer(QC): 3 Toilet Transfer (QC): 3 Car Transfer (QC): 3 Does the Patient Walk: No and Walking Goal NOT indicated Walk 10 feet (QC): 88 Walk 50ft with 2 Turns (QC): 88 Walk 150 ft (QC): 88 Walking 10ft on Uneven Surface: 88 1 Step (curb) (QC): 88 4 Steps (QC): 88 12 Steps (QC): 88 Picking up an Object (QC): 3 Does the Pt use WC or Scooter?: Yes Wheel 50 feet with 2 turns (QC: 3 Type: Manual Wheel 150 feet: 3 Type: Manual PT Plan Problem List Problem List: Activity Tolerance, Functional Strength, Safety, Balance, Gait, Transfer, Bed Mobility, ROM Treatment/Plan Treatment Plan: Continue Plan of Care Treatment Plan: Bed Mobility, Education, Functional Activity Sara, Functional Strength, Group Therapy, Safety, Therapeutic Exercise, Transfers Treatment Duration: Sep 13, 2021 Frequency: At least 5 of 7 days/Wk (IRF) Estimated Hrs Per Day: 1.5 hours per day Patient and/or Family Agrees t: Yes Safety Risks/Education Patient Education: Transfer Techniques, Correct Positioning, W/C Management, Safety Issues Teaching Recipient: Patient Teaching Methods: Demonstration, Discussion Response to Teaching: Reinforcement Needed Time/GCodes Time In: 0800 Time Out: 0900 Total Billed Treatment Time: 60 Total Billed Treatment 1 visit EX 30' FA 30' VERONICA MONIQUE PT Sep 10, 2021 08:56
--- NOTE | 2021-09-10 08:58 | Occupational Ther Daily Note ---
OT Current Status-Daily Note Subjective Pt awake and agreeable to treatment. Co-treat with PT for part of session (0800- 0900) due to need of 2 skilled clinicians to progress indep with adls and mobility. Appearance Left sitting in recliner, all needs within reach. ADL-Treatment Therapy Code Descriptions/Definitions Functional [place] Measure: 0=Not Assessed/NA 4=Minimal Assistance 1=Total Assistance 5=Supervision or Setup 2=Maximal Assistance 6=Modified [place] 3=Moderate Assistance 7=Complete IndependenceSCALE: Activities may be completed with or without assistive devices. 9-Txihklyrhe-ycgwuuu completes the activity by him/herself with no assistance from a helper. 5-Set-up or Clean-up Assistance-helper sets up or cleans up; patient completes activity. [place] assists only prior to or following the activity. 4-Supervision or Touching Assistance-helper provides verbal cues and/or touching/steadying and/or contact guard assistance as patient completes activi ty. Assistance may be provided throughout the activity or intermittently. 3-Partial/Moderate Assistance-helper does LESS THAN HALF the effort. [place] lifts, holds or supports trunk or limbs, but provides less than half the effort. 2-Substantial/Maximal Assistance-helper does MORE THAN HALF the effort. [place] lifts or holds trunk or limbs and provides more than half the effort. 7-Hjrmjomyt-cxyvjf does ALL the effort. Patient does none of the effort to complete the activity. Or, the assistance of 2 or more helpers is required for the patient to complete the activity. If activity was not attempted, code reason: 7-Patient Refused. 9-Not Applicable-not attempted and the patient did not perform the activity before the current illness, exacerbation or injury. 10-Not Attempted due to Environmental Limitations-(lack of equipment, weather restraints, etc.). 88-Not Attempted due to Medical Conditions or Safety Concerns. Eating (QC): 4 Oral Hygiene (QC): 4 Shower/Bathe Self (QC): 2 Lower Body Dressing (QC): 1 On/Off Footwear: 2 Toileting Hygiene (QC): 1 Toilet Transfer (QC): 1 Pt supine at OT arrival. Able to sit EOB with Min a for elevating trunk. Sponge bath performed seated EOB. Fair sitting balance; Requires intermittent min a and Single UE support on bedrail. Improved horizontal adduction when reaching with L hand to R axilla, but still requires assist for thoroughness. Assist to lift/cross/and maintain figure 4 position in order for pt to wash bilateral legs/feet. . Assist again for thoroughness. Extra assist required with sitting balance when performing cross over method. Pt able to wash front latonya area without assist. Buttocks washed in sidelying prior to sitting EOB; dependent. While in figure 4 position (seated EOB), OT initiated socks over toes. Mod assist to maintain pinch/grasp on sock with R hand (due to weakness) in order to pull worker heel. New gown donned (vs clothing) secondary to multiple bowel incontinence episodes throughout the day. Oral care performed at w/c level. Extra time to twist cap on/off toothpaste, assist only to maintain grasp when twisting cap back on. Pt utilized LUE as indep stabilizer to hold toothbrush as he applied toothpaste with R hand, no assist this date. Pt able to brush all quadrants of mouth without assist. Other Treatment Pt participated in multiple seated activities while EOM with focus on improving dexterity skills, pinch/grasp, functional reach, dynamic seated balance, and crossing midline needed for functional tasks. OT demonstrated compensatory technique to slide insurance checker pieces to edge of table in order to position fingers for a tip pinch. Extra time to flip pieces over. Pieces placed randomly throughout table in order to encourage reaching in multiple planes. When pieces were placed too far anteriorly, pt appears to have a fear of falling. CGA-Min a for balance as he reached out of MAINOR for large cones with R hand. Pt fatigues easily with task and requires short rest breaks throughout. Education OT Patient Education: Correct positioning, Energy conservation, Modified ADL techniques, Progress toward Goal/Update tx plan, Purpose of tx/functional activities, Rehab process, Safety issues, Transfer techniques, Use of adapted equipment, W/C management Teaching Recipient: Patient Teaching Methods: Demonstration, Discussion Response to Teaching: Return Demonstration, Reinforcement Needed OT Short Term Goals Short Term Goals Time Frame: Sep 22, 2021 Toileting hygiene: 2 Shower/bathe self: 2 Upper body dressin Lower body dressin Putting on/taking off footwear: 3 OT Medical Technologist Chemistry Goals Long-Term Goals Time Frame: Oct 01, 2021 Eating (QC): 5 Oral Hygiene (QC): 6 Toileting Hygiene (QC): 4 Shower/Bathe Self (QC): 4 Upper Body Dressing (QC): 5 Lower Body Dressing (QC): 4 On/Off Footwear (QC): 4 Additional Goals: 1-Demonstrate ADL Tasks, 2-Verbalize Understanding, 3- ImproveStrength/Sara 1=Demonstrate adherence to instructed precautions during ADL tasks. 2=Patient will verbalize/demonstrate understanding of assistive devices/modifications for ADL. 3=Patient will improve strength/tolerance for activity to enable patient to perform ADL's. OT Education/Plan Problem List/Assessment Assessment: Decreased Activ Tolerance, Decreased Safety Aware, Decreased UE Strength, Dependent Transfers, Impaired Coordination, Impaired Funct Balance, Impaired I ADL's, Impaired Self-Care Skills, Restricted Funct UE ROM Discharge Recommendations Plan/Recommendations: Continue POC Therapy Discharge Recommendati: Post Acute OT Treatment Plan/Plan of Care Patient would benefit from OT for education, treatment and training to promote independence in ADL's, mobility, safety and/or upper extremity function for ADL's. Plan of Care: ADL Retraining, Functional Mobility, Group Exercise/Act as Ind, UE Funct Exercise/Act, UE Neuromus Re-Ed/Coord Treatment Duration: Oct 01, 2021 Frequency: At least 5 of 7 days/Wk (IRF) Estimated Hrs Per Day: 1.5 hours per day Agreement: Yes Rehab Potential: Fair Time/GCodes Start Time: 07:45 Stop Time: 09:00 Total Time Billed (hr/min): 75 Billed Treatment Time 1 visit ADL x3 (40 min) FA x2 (35 min) Nisreen Lowe OT Sep 10, 2021 08:58
--- NOTE | 2021-09-10 11:33 | Occupational Ther Daily Note ---
OT Current Status-Daily Note Subjective Pt on the phone with friend at OT arrival. Agreeable to treatment. Appearance Pt left sitting in chair, all needs within reach. ADL-Treatment Therapy Code Descriptions/Definitions Functional [place] Measure: 0=Not Assessed/NA 4=Minimal Assistance 1=Total Assistance 5=Supervision or Setup 2=Maximal Assistance 6=Modified [place] 3=Moderate Assistance 7=Complete IndependenceSCALE: Activities may be completed with or without assistive devices. 3-Gdnnuossol-ogtyqty completes the activity by him/herself with no assistance from a helper. 5-Set-up or Clean-up Assistance-helper sets up or cleans up; patient completes activity. [place] assists only prior to or following the activity. 4-Supervision or Touching Assistance-helper provides verbal cues and/or touching/steadying and/or contact guard assistance as patient completes activity. Assistance may be provided throughout the activity or intermittently. 3-Partial/Moderate Assistance-helper does LESS THAN HALF the effort. [place] lifts, holds or supports trunk or limbs, but provides less than half the effort. 2-Substantial/Maximal Assistance-helper does MORE THAN HALF the effort. [place] lifts or holds trunk or limbs and provides more than half the effort. 1-Aueenfoxu-aowbje does ALL the effort. Patient does none of the effort to complete the activity. Or, the assistance of 2 or more helpers is required for the patient to complete the activity. If activity was not attempted, code reason: 7-Patient Refused. 9-Not Applicable-not attempted and the patient did not perform the activity before the current illness, exacerbation or injury. 10-Not Attempted due to Environmental Limitations-(lack of equipment, weather restraints, etc.). 88-Not Attempted due to Medical Conditions or Safety Concerns. Other Treatment Pt participated in fine motor task with extra large pegs to focus on improving pinch, grasp, and hand/UE strength needed for functional tasks. With all reaching, pt compensates at shoulder with adduction and scapula elevation. Cues at shoulder to decrease compensation. Intermittent assist under L elbow when reaching due to weakness. Improved tip pinch notable in L hand. Extra time to position correctly into slots. Cues to utilize R hand to assist in stabilizing peg when pinching with L. Education OT Patient Education: Correct positioning, Exercise program, Purpose of tx/functional activities Teaching Recipient: Patient Teaching Methods: Demonstration, Discussion Response to Teaching: Return Demonstration, Reinforcement Needed OT Short Term Goals Short Term Goals Time Frame: Sep 22, 2021 Toileting hygiene: 2 Shower/bathe self: 2 Upper body dressin Lower body dressin Putting on/taking off footwear: 3 OT Community Artist Goals Usp Goals Time Frame: Oct 01, 2021 Eating (QC): 5 Oral Hygiene (QC): 6 Toileting Hygiene (QC): 4 Shower/Bathe Self (QC): 4 Upper Body Dressing (QC): 5 Lower Body Dressing (QC): 4 On/Off Footwear (QC): 4 Additional Goals: 1-Demonstrate ADL Tasks, 2-Verbalize Understanding, 3- ImproveStrength/Sara 1=Demonstrate adherence to instructed precautions during ADL tasks. 2=Patient will verbalize/demonstrate understanding of assistive devices/modifications for ADL. 3=Patient will improve strength/tolerance for activity to enable patient to perform ADL's. OT Education/Plan Problem List/Assessment Assessment: Decreased Activ Tolerance, Decreased UE Strength, Dependent Transfers, Impaired Coordination, Impaired Funct Balance, Impaired I ADL's, Impaired Self-Care Skills, Restricted Funct UE ROM Discharge Recommendations Plan/Recommendations: Continue POC Treatment Plan/Plan of Care Treatment,Training & Education: Yes Patient would benefit from OT for education, treatment and training to promote independence in ADL's, mobility, safety and/or upper extremity function for ADL's. Plan of Care: ADL Retraining, Functional Mobility, Group Exercise/Act as Ind, UE Funct Exercise/Act, UE Neuromus Re-Ed/Coord Treatment Duration: Oct 01, 2021 Frequency: At least 5 of 7 days/Wk (IRF) Estimated Hrs Per Day: 1.5 hours per day Agreement: Yes Rehab Potential: Fair Time/GCodes Start Time: 11:15 Stop Time: 11:30 Total Time Billed (hr/min): 15 Billed Treatment Time 1 visit Nisreen Del Cid OT Sep 10, 2021 11:33
--- NOTE | 2021-09-10 13:30 | Physical Therapy Daily Note ---
PT Daily Note-Current Subjective Patient in recliner pre tx, agrees to PT, voices no complaints of pain. Appearance Patient in recliner post tx with nurse call, phone, tray, all needs met. Mental Status Patient Orientation: Person, Unable to Assess Attachments: Tyson Catheter Transfers SCALE: Activities may be completed with or without assistive devices. 3-Pddcvfkrul-bvbywwv completes the activity by him/herself with no assistance from a helper. 5-Set-up or Clean-up Assistance-helper sets up or cleans up; patient completes activity. [place] assists only prior to or following the activity. 4-Supervision or Touching Assistance-helper provides verbal cues and/or touching/steadying and/or contact guard assistance as patient completes activi ty. Assistance may be provided throughout the activity or intermittently. 3-Partial/Moderate Assistance-helper does LESS THAN HALF the effort. [place] lifts, holds or supports trunk or limbs, but provides less than half the effort. 2-Substantial/Maximal Assistance-helper does MORE THAN HALF the effort. [place] lifts or holds trunk or limbs and provides more than half the effort. 7-Kgwrasers-lrxekl does ALL the effort. Patient does none of the effort to complete the activity. Or, the assistance of 2 or more helpers is required for the patient to complete the activity. If activity was not attempted, code reason: 7-Patient Refused. 9-Not Applicable-not attempted and the patient did not perform the activity before the current illness, exacerbation or injury. 10-Not Attempted due to Environmental Limitations-(lack of equipment, weather restraints, etc.). 88-Not Attempted due to Medical Conditions or Safety Concerns. Exercises Supine Ex: Ankle pumps, Quad Set, Glut sets, Heel Slides (AAROM on the left side), Short Arc Quads (AAROM), Straight leg raise (AAROM), Hip abd/add (AAROM on the left side) Supine Reps: 20 Seated Therapy Exercises: Hip flexion, Hip abd/add (with ball and RTB) Seated Reps: 20 LAQ alternating for 5 min Treatments LE strengthening Assessment Current Status: Poor Progress no change, continued increased muscle tone and spasms PT Short Term Goals Short Term Goals Time Frame: Sep 08, 2021 Roll Left & Right: 4 Sit to lyin Lying to sitting on side of be: 3 Sit to stand: 2 Chair/svq-uj-jtufk transfer: 2 PT Pouncing Lathe Operator Goals Pouncing Lathe Operator Goals PT Pouncing Lathe Operator Goals Time Frame: Sep 22, 2021 Roll Left & Right (QC): 4 Sit to Lying (QC): 4 Lying-Sitting on Side/Bed(QC): 4 Sit to Stand (QC): 3 Chair/Ngb-ii-Kbngp Xfer(QC): 3 Toilet Transfer (QC): 3 Car Transfer (QC): 3 Does the Patient Walk: No and Walking Goal NOT indicated Walk 10 feet (QC): 88 Walk 50ft with 2 Turns (QC): 88 Walk 150 ft (QC): 88 Walking 10ft on Uneven Surface: 88 1 Step (curb) (QC): 88 4 Steps (QC): 88 12 Steps (QC): 88 Picking up an Object (QC): 3 Does the Pt use WC or Scooter?: Yes Wheel 50 feet with 2 turns (QC: 3 Type: Manual Wheel 150 feet: 3 Type: Manual PT Plan Problem List Problem List: Activity Tolerance, Functional Strength, Safety, Balance, Gait, Transfer, Bed Mobility, ROM Treatment/Plan Treatment Plan: Continue Plan of Care Treatment Plan: Bed Mobility, Education, Functional Activity Sara, Functional Strength, Group Therapy, Safety, Therapeutic Exercise, Transfers Treatment Duration: Sep 13, 2021 Frequency: At least 5 of 7 days/Wk (IRF) Estimated Hrs Per Day: 1.5 hours per day Patient and/or Family Agrees t: Yes Safety Risks/Education Patient Education: Correct Positioning, Safety Issues Teaching Recipient: Patient Teaching Methods: Demonstration, Discussion Response to Teaching: Reinforcement Needed Time/GCodes Time In: 1300 Time Out: 1330 Total Billed Treatment Time: 30 Total Billed Treatment 1 visit EX 30' VERONICA MONIQUE PT Sep 10, 2021 13:29
[2021-09-10 20:00] VITALS: BP 124/66
[2021-09-10] MEDS: ROSUVASTATIN 20 MG (CRESTOR) TABLET PO SCH (20:59)
[2021-09-10] MEDS: LOPERAMIDE 2 MG (IMODIUM) TABLET PO PRN (20:59)
[2021-09-11] MEDS: SUCRALFATE 1 GM (CARAFATE) TAB PO SCH ×4 (05:51→20:54)
[2021-09-11] MEDS: inSUlin ASPART (NovoLOG) 1 UNIT/0.01 ML (CHARGE PER UNIT) SC SCH ×4 (05:54→20:53)
[2021-09-11 07:06] VITALS: BP 126/66
--- NOTE | 2021-09-11 07:38 | PM&R Progress Note ---
Subjective HPI/CC On Admission Date Seen by Provider: Sep 11, 2021 Time Seen by Provider: 12:00 Subjective/Events-last exam 09/11/2021: Patient dramatically improved Loose stools still remain Patient denies pain Moving hands and feet very well 09/10/21: Patient doing remarkably well Gaining function with hands and feet Loose BM's Blood sugars 272 Checked meds and labs 09/09/2021: Patient doing well No pain is reported Blood sugars reviewed Blood pressure reviewed Able to feed himself 09/08/2021: Pt is doing well Eating well Able to feed himself with his right hand Loose stools will be given Imodium 09/07/2021: Pt is doing well Blood sugar is 127 Bowels are loose Coccyx has a decubitus ulcer and we will monitor that closely 09/06/2021: Pt is doing a lot better Hemoglobin was 10.2 Has a decubitus ulcer on his coccyx Low bp so holding Norvasc Pilar lift is being used 09/05/2021: Patient doing really well Requiring Pilar lift though Lovenox started today Blood sugars are variable 09/04/2021: Patient doing very well Requiring Pilar lift since he cannot use the sit to stand at this current time Moving his arms and hands better Blood sugar is a little bit elevated Blood pressure better Lovenox will be started tomorrow 09/03/2021: Pt is doing well Took a shower but then he couldn't really get back in bed Had some emesis so we'll start Protonix 40 mg BID and Carafate Aguilar cath remains due to retention 09/02/2021: Pt settling in well Holding all insulin due to hypoglycemia Had emesis last night Fed himself a bit today Keeping aguilar in for retention Review of Systems Neurological: Weakness, Incoordination Objective Exam Vital Signs Vital Signs Date Time Temp Pulse Resp B/P (MAP) Pulse Ox O2 Delivery O2 Flow Rate FiO2 09/11/21 20:00 36.9 70 18 121/67 (85) 99 Room Air Capillary Refill : General Appearance: No Apparent Distress, WD/WN, Chronically ill, Obese HEENT: PERRL/EOMI, Normal ENT Inspection, Pharynx Normal Neck: Full Range of Motion, Normal Inspection, Non Tender, Supple, Carotid Bruit Respiratory: Chest Non Tender, Lungs Clear, Normal Breath Sounds, No Accessory Muscle Use, No Respiratory Distress Cardiovascular: Regular Rate, Rhythm, No Edema, No Gallop, No JVD, No Murmur, Normal Peripheral Pulses Gastrointestinal: Normal Bowel Sounds, No Organomegaly, No Pulsatile Mass, Non Tender, Soft Back: Normal Inspection, No CVA Tenderness, No Vertebral Tenderness, Decreased Range of Motion Extremity: Normal Capillary Refill, Normal Inspection, Normal Range of Motion, Non Tender, No Calf Tenderness, No Pedal Edema Neurologic/Psychiatric: Alert, Oriented x3, Normal Mood/Affect, Abnormal Gait, Motor Weakness Skin: Normal Color, Warm/Dry Lymphatic: No Adenopathy Results/Procedures Lab Patient resulted labs reviewed. FIM Transfers Therapy Code Descriptions/Definitions Functional [place] Measure: 0=Not Assessed/NA 4=Minimal Assistance 1=Total Assistance 5=Supervision or Setup 2=Maximal Assistance 6=Modified [place] 3=Moderate Assistance 7=Complete IndependenceSCALE: Activities may be completed with or without assistive devices. 9-Dksblovtcr-lrgvcgw completes the activity by him/herself with no assistance from a helper. 5-Set-up or Clean-up Assistance-helper sets up or cleans up; patient completes activity. [place] assists only prior to or following the activity. 4-Supervision or Touching Assistance-helper provides verbal cues and/or touching/steadying and/or contact guard assistance as patient completes activity. Assistance may be provided throughout the activity or intermittently. 3-Partial/Moderate Assistance-helper does LESS THAN HALF the effort. [place] lifts, holds or supports trunk or limbs, but provides less than half the effort. 2-Substantial/Maximal Assistance-helper does MORE THAN HALF the effort. [place] lifts or holds trunk or limbs and provides more than half the effort. 0-Xbvsrxdbg-ibjerl does ALL the effort. Patient does none of the effort to complete the activity. Or, the assistance of 2 or more helpers is required for the patient to complete the activity. If activity was not attempted, code reason: 7-Patient Refused. 9-Not Applicable-not attempted and the patient did not perform the activity before the current illness, exacerbation or injury. 10-Not Attempted due to Environmental Limitations-(lack of equipment, weather restraints, etc.). 88-Not Attempted due to Medical Conditions or Safety Concerns. Roll Left to Right (QC): 3 Sit to Lying (QC): 3 Sit to Stand (QC): 3 Chair/Waj-wk-Znkhq Xfer(QC): 3 Car Transfer (QC): 88 Gait Training Does the Patient Walk?: No and Walking Goal NOT indicated Walk 10 feet (QC): 88 Walk 50 ft with 2 Turns(QC): 88 Walk 150 ft (QC): 88 Walking 10ft/uneven surface-QC: 88 Wheelchair Training Does the Pt Use a Wheelchair?: Yes Wheel 50 ft with 2 turns (QC): 3 Wheel 150 ft (QC): 3 Type of Wheelchair: Manual Stair Training 1 Step (curb) (QC): 88 4 Steps (QC): 88 12 Steps (QC): 88 Balance Picking up an Object (QC): 88 ADL-Treatment Eating (QC): 4 Oral Hygiene (QC): 4 Shower/Bathe Self (QC): 2 Upper Body Dressing (QC): 2 Lower Body Dressing (QC): 1 On/Off Footwear (QC): 2 Toileting Hygiene (QC): 1 Toilet Transfer (QC): 1 Assessment/Plan Assessment and Plan Assess & Plan/Chief Complaint Assessment: 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 Diabetes yny-ud-wgmhefc Hypertension Hyperlipidemia Previous CVA with right-sided weakness Coccyx decubitus ulcers Plan: Aggressive therapy Pain control Monitor bowel function Insulin 09/02/2021: Supportive care Aggressive therapy Hold insulin 09/03/2021: Supportive care Cervical spine collar Aguilar catheter 09/04/2021: Supportive care Cervical spine collar Aguilar catheter Pilar lift We'll start Lovenox tomorrow 09/05/2021: Supportive care Lovenox Maintain Aguilar 09/06/2021: Maintain Aguilar Continues to be Pilar lift 09/07/2021: Coccyx decubitus ulcer management 09/08/2021: Imodium for loose stools Continue to progress 09/09/2021: Imodium for loose stools Supportive care 09/10/2021: Supportive care Dramatic improvement 09/11/2021: Supportive care We will attempt to DC Aguilar catheter this week (1) Cervical spine syndrome (2) Myoclonus (3) Type 2 diabetes mellitus without complication (4) Primary hypertension (5) Mixed hyperlipidemia (6) History of CVA with residual deficit (7) Right sided weakness (8) Cervical cord myelomalacia (9) Spinal cord contusion (10) Fall Status: Acute SHAYNE JAMES DO Sep 11, 2021 07:38
[2021-09-11] MEDS: meTOprolol TARTRATE 25 MG (LOPRESSOR) TABLET PO SCH ×2 (07:40→20:54)
[2021-09-11] MEDS: ENOXAPARIN 40 MG/0.4 ML (LOVENOX) SYR SC SCH (07:40)
[2021-09-11] MEDS: amLODIPine 5 MG (NORVASC) TAB PO SCH (07:40)
[2021-09-11] MEDS: PANTOPRAZOLE 40 MG (PROTONIX) TAB PO SCH ×2 (07:40→20:54)
[2021-09-11] MEDS: SENNA W/DOCUSATE (SENOKOT S) TABLET PO SCH ×2 (08:52→19:28)
[2021-09-11] MEDS: DOCUSATE SODIUM 100 MG (COLACE) CAP PO SCH ×2 (08:52→19:28)
[2021-09-11] MEDS: polyethylene glycoL POWDER 17 GM (MIRALAX) PACK PO SCH ×2 (08:52→19:28)
--- NOTE | 2021-09-11 08:55 | Physical Therapy Daily Note ---
PT Daily Note-Current Subjective Pt agreeable. Mental Status Patient Orientation: Person Transfers SCALE: Activities may be completed with or without assistive devices. 8-Mnaknwpngn-wnmflic completes the activity by him/herself with no assistance from a helper. 5-Set-up or Clean-up Assistance-helper sets up or cleans up; patient completes activity. [place] assists only prior to or following the activity. 4-Supervision or Touching Assistance-helper provides verbal cues and/or touching/steadying and/or contact guard assistance as patient completes activity. Assistance may be provided throughout the activity or intermittently. 3-Partial/Moderate Assistance-helper does LESS THAN HALF the effort. [place] lifts, holds or supports trunk or limbs, but provides less than half the effort. 2-Substantial/Maximal Assistance-helper does MORE THAN HALF the effort. [place] lifts or holds trunk or limbs and provides more than half the effort. 3-Sfbisevqz-ekoyht does ALL the effort. Patient does none of the effort to complete the activity. Or, the assistance of 2 or more helpers is required for the patient to complete the activity. If activity was not attempted, code reason: 7-Patient Refused. 9-Not Applicable-not attempted and the patient did not perform the activity before the current illness, exacerbation or injury. 10-Not Attempted due to Environmental Limitations-(lack of equipment, weather restraints, etc.). 88-Not Attempted due to Medical Conditions or Safety Concerns. Exercises Supine Ex: Ankle pumps, Heel Slides, Short Arc Quads, Straight leg raise, Hip abd/add Supine Reps: 20 Seated Therapy Exercises: Ankle pumps, Hip abd/add Treatments Pilar lift bed to recliner. AAROM with all LE ther ex. Assessment Current Status: Fair Progress Pt efrain above well. Pt verbalized he is comfortable in his recliner. PT Short Term Goals Short Term Goals Time Frame: Sep 08, 2021 Roll Left & Right: 4 Sit to lyin Lying to sitting on side of be: 3 Sit to stand: 2 Chair/uha-hl-hadoj transfer: 2 PT Usp Goals Back Seam Stitcher Goals PT Back Seam Stitcher Goals Time Frame: Sep 22, 2021 Roll Left & Right (QC): 4 Sit to Lying (QC): 4 Lying-Sitting on Side/Bed(QC): 4 Sit to Stand (QC): 3 Chair/Blz-cf-Atzzl Xfer(QC): 3 Toilet Transfer (QC): 3 Car Transfer (QC): 3 Does the Patient Walk: No and Walking Goal NOT indicated Walk 10 feet (QC): 88 Walk 50ft with 2 Turns (QC): 88 Walk 150 ft (QC): 88 Walking 10ft on Uneven Surface: 88 1 Step (curb) (QC): 88 4 Steps (QC): 88 12 Steps (QC): 88 Picking up an Object (QC): 3 Does the Pt use WC or Scooter?: Yes Wheel 50 feet with 2 turns (QC: 3 Type: Manual Wheel 150 feet: 3 Type: Manual PT Plan Treatment/Plan Treatment Plan: Continue Plan of Care Treatment Plan: Bed Mobility, Education, Functional Activity Sara, Functional Strength, Group Therapy, Safety, Therapeutic Exercise, Transfers Treatment Duration: Sep 13, 2021 Frequency: At least 5 of 7 days/Wk (IRF) Estimated Hrs Per Day: 1.5 hours per day Patient and/or Family Agrees t: Yes Time/GCodes Time In: 805 Time Out: 830 Total Billed Treatment Time: 25 Total Billed Treatment 1, FA 10', Ex 15' JAMAL ARREDONDO CPTA Sep 11, 2021 08:55
[2021-09-11 20:00] VITALS: BP 121/67
[2021-09-11] MEDS: ROSUVASTATIN 20 MG (CRESTOR) TABLET PO SCH (20:54)
[2021-09-12] MEDS: inSUlin ASPART (NovoLOG) 1 UNIT/0.01 ML (CHARGE PER UNIT) SC SCH ×4 (05:08→20:22)
[2021-09-12] MEDS: SUCRALFATE 1 GM (CARAFATE) TAB PO SCH ×4 (07:02→20:30)
[2021-09-12 07:05] VITALS: BP 127/68
--- NOTE | 2021-09-12 08:34 | PM&R Progress Note ---
Subjective HPI/CC On Admission Date Seen by Provider: Sep 12, 2021 Time Seen by Provider: 12:30 Subjective/Events-last exam 09/12/2021: Patient continues to improve No pain is reported Reviewed blood sugars Blood pressure stable 09/11/2021: Patient dramatically improved Loose stools still remain Patient denies pain Moving hands and feet very well 09/10/21: Patient doing remarkably well Gaining function with hands and feet Loose BM's Blood sugars 272 Checked meds and labs 09/09/2021: Patient doing well No pain is reported Blood sugars reviewed Blood pressure reviewed Able to feed himself 09/08/2021: Pt is doing well Eating well Able to feed himself with his right hand Loose stools will be given Imodium 09/07/2021: Pt is doing well Blood sugar is 127 Bowels are loose Coccyx has a decubitus ulcer and we will monitor that closely 09/06/2021: Pt is doing a lot better Hemoglobin was 10.2 Has a decubitus ulcer on his coccyx Low bp so holding Norvasc Pilar lift is being used 09/05/2021: Patient doing really well Requiring Pilar lift though Lovenox started today Blood sugars are variable 09/04/2021: Patient doing very well Requiring Pilar lift since he cannot use the sit to stand at this current time Moving his arms and hands better Blood sugar is a little bit elevated Blood pressure better Lovenox will be started tomorrow 09/03/2021: Pt is doing well Took a shower but then he couldn't really get back in bed Had some emesis so we'll start Protonix 40 mg BID and Carafate Aguilar cath remains due to retention 09/02/2021: Pt settling in well Holding all insulin due to hypoglycemia Had emesis last night Fed himself a bit today Keeping aguilar in for retention Review of Systems General: Fatigue, Malaise Neurological: Weakness, Incoordination Objective Exam Vital Signs Vital Signs Date Time Temp Pulse Resp B/P (MAP) Pulse Ox O2 Delivery O2 Flow Rate FiO2 09/12/21 20:13 36.7 81 18 123/69 (87) 98 Room Air Capillary Refill : General Appearance: No Apparent Distress, WD/WN, Chronically ill, Obese HEENT: PERRL/EOMI, Normal ENT Inspection, Pharynx Normal Neck: Full Range of Motion, Normal Inspection, Non Tender, Supple, Carotid B ruit Respiratory: Chest Non Tender, Lungs Clear, Normal Breath Sounds, No Accessory Muscle Use, No Respiratory Distress Cardiovascular: Regular Rate, Rhythm, No Edema, No Gallop, No JVD, No Murmur, Normal Peripheral Pulses Gastrointestinal: Normal Bowel Sounds, No Organomegaly, No Pulsatile Mass, Non Tender, Soft Back: Normal Inspection, No CVA Tenderness, No Vertebral Tenderness, Decreased Range of Motion Extremity: Normal Capillary Refill, Normal Inspection, Normal Range of Motion, Non Tender, No Calf Tenderness, No Pedal Edema Neurologic/Psychiatric: Alert, Oriented x3, Normal Mood/Affect, Abnormal Gait, Motor Weakness Skin: Normal Color, Warm/Dry Lymphatic: No Adenopathy Results/Procedures Lab Patient resulted labs reviewed. FIM Transfers Therapy Code Descriptions/Definitions Functional [place] Measure: 0=Not Assessed/NA 4=Minimal Assistance 1=Total Assistance 5=Supervision or Setup 2=Maximal Assistance 6=Modified [place] 3=Moderate Assistance 7=Complete IndependenceSCALE: Activities may be completed with or without assistive devices. 3-Cuhdeuogxp-vdegjop completes the activity by him/herself with no assistance from a helper. 5-Set-up or Clean-up Assistance-helper sets up or cleans up; patient completes activity. [place] assists only prior to or following the activity. 4-Supervision or Touching Assistance-helper provides verbal cues and/or touching/steadying and/or contact guard assistance as patient completes acti vity. Assistance may be provided throughout the activity or intermittently. 3-Partial/Moderate Assistance-helper does LESS THAN HALF the effort. [place] lifts, holds or supports trunk or limbs, but provides less than half the effort. 2-Substantial/Maximal Assistance-helper does MORE THAN HALF the effort. [place] lifts or holds trunk or limbs and provides more than half the effort. 1-Hrczvyfqd-tgkqvq does ALL the effort. Patient does none of the effort to complete the activity. Or, the assistance of 2 or more helpers is required for the patient to complete the activity. If activity was not attempted, code reason: 7-Patient Refused. 9-Not Applicable-not attempted and the patient did not perform the activity before the current illness, exacerbation or injury. 10-Not Attempted due to Environmental Limitations-(lack of equipment, weather restraints, etc.). 88-Not Attempted due to Medical Conditions or Safety Concerns. Roll Left to Right (QC): 3 Sit to Lying (QC): 3 Sit to Stand (QC): 3 Chair/Dxh-si-Efuce Xfer(QC): 3 Car Transfer (QC): 88 Gait Training Does the Patient Walk?: No and Walking Goal NOT indicated Walk 10 feet (QC): 88 Walk 50 ft with 2 Turns(QC): 88 Walk 150 ft (QC): 88 Walking 10ft/uneven surface-QC: 88 Wheelchair Training Does the Pt Use a Wheelchair?: Yes Wheel 50 ft with 2 turns (QC): 3 Wheel 150 ft (QC): 3 Type of Wheelchair: Manual Stair Training 1 Step (curb) (QC): 88 4 Steps (QC): 88 12 Steps (QC): 88 Balance Picking up an Object (QC): 88 ADL-Treatment Eating (QC): 4 Oral Hygiene (QC): 4 Shower/Bathe Self (QC): 2 Upper Body Dressing (QC): 2 Lower Body Dressing (QC): 1 On/Off Footwear (QC): 2 Toileting Hygiene (QC): 1 Toilet Transfer (QC): 1 Assessment/Plan Assessment and Plan Assess & Plan/Chief Complaint Assessment: 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 Diabetes vym-su-lzccyrp Hypertension Hyperlipidemia Previous CVA with right-sided weakness Coccyx decubitus ulcers Plan: Aggressive therapy Pain control Monitor bowel function Insulin 09/02/2021: Supportive care Aggressive therapy Hold insulin 09/03/2021: Supportive care Cervical spine collar Aguilar catheter 09/04/2021: Supportive care Cervical spine collar Aguilar catheter Pilar lift We'll start Lovenox tomorrow 09/05/2021: Supportive care Lovenox Maintain Aguilar 09/06/2021: Maintain Aguilar Continues to be Pilar lift 09/07/2021: Coccyx decubitus ulcer management 09/08/2021: Imodium for loose stools Continue to progress 09/09/2021: Imodium for loose stools Supportive care 09/10/2021: Supportive care Dramatic improvement 09/11/2021: Supportive care We will attempt to DC Aguilar catheter this week 09/12/2021: Attempt to DC Aguilar catheter Supportive care (1) Cervical spine syndrome (2) Myoclonus (3) Type 2 diabetes mellitus without complication (4) Primary hypertension (5) Mixed hyperlipidemia (6) History of CVA with residual deficit (7) Right sided weakness (8) Cervical cord myelomalacia (9) Spinal cord contusion (10) Fall Status: Acute SHAYNE JAMES DO Sep 12, 2021 08:34
[2021-09-12] MEDS: PANTOPRAZOLE 40 MG (PROTONIX) TAB PO SCH ×2 (08:51→20:30)
[2021-09-12] MEDS: amLODIPine 5 MG (NORVASC) TAB PO SCH (08:51)
[2021-09-12] MEDS: ENOXAPARIN 40 MG/0.4 ML (LOVENOX) SYR SC SCH (08:51)
[2021-09-12] MEDS: meTOprolol TARTRATE 25 MG (LOPRESSOR) TABLET PO SCH ×2 (08:51→20:30)
[2021-09-12] MEDS: DOCUSATE SODIUM 100 MG (COLACE) CAP PO SCH ×2 (08:56→19:22)
[2021-09-12] MEDS: SENNA W/DOCUSATE (SENOKOT S) TABLET PO SCH ×2 (08:57→19:21)
[2021-09-12] MEDS: polyethylene glycoL POWDER 17 GM (MIRALAX) PACK PO SCH ×2 (08:57→19:21)
[2021-09-12 20:13] VITALS: BP 123/69
[2021-09-12] MEDS: ROSUVASTATIN 20 MG (CRESTOR) TABLET PO SCH (20:30)
[2021-09-13] MEDS: SUCRALFATE 1 GM (CARAFATE) TAB PO SCH ×4 (05:53→20:59)
[2021-09-13] MEDS: inSUlin ASPART (NovoLOG) 1 UNIT/0.01 ML (CHARGE PER UNIT) SC SCH ×4 (06:15→21:00)
--- NOTE | 2021-09-13 06:47 | PM&R Progress Note ---
Subjective HPI/CC On Admission Date Seen by Provider: Sep 13, 2021 Time Seen by Provider: 09:30 Subjective/Events-last exam 09/13/21: Pt is doing pretty well Will attempt to discontinue the catheter today. If he has retention it could be from the spinal cord injury and could very well require it to be indwelling. Labs reviewed Blood sugar is elevated from drinking orange juice all day 09/12/2021: Patient continues to improve No pain is reported Reviewed blood sugars Blood pressure stable 09/11/2021: Patient dramatically improved Loose stools still remain Patient denies pain Moving hands and feet very well 09/10/21: Patient doing remarkably well Gaining function with hands and feet Loose BM's Blood sugars 272 Checked meds and labs 09/09/2021: Patient doing well No pain is reported Blood sugars reviewed Blood pressure reviewed Able to feed himself 09/08/2021: Pt is doing well Eating well Able to feed himself with his right hand Loose stools will be given Imodium 09/07/2021: Pt is doing well Blood sugar is 127 Bowels are loose Coccyx has a decubitus ulcer and we will monitor that closely 09/06/2021: Pt is doing a lot better Hemoglobin was 10.2 Has a decubitus ulcer on his coccyx Low bp so holding Norvasc Pilar lift is being used 09/05/2021: Patient doing really well Requiring Pilar lift though Lovenox started today Blood sugars are variable 09/04/2021: Patient doing very well Requiring Pilar lift since he cannot use the sit to stand at this current time Moving his arms and hands better Blood sugar is a little bit elevated Blood pressure better Lovenox will be started tomorrow 09/03/2021: Pt is doing well Took a shower but then he couldn't really get back in bed Had some emesis so we'll start Protonix 40 mg BID and Carafate Aguilar cath remains due to retention 09/02/2021: Pt settling in well Holding all insulin due to hypoglycemia Had emesis last night Fed himself a bit today Keeping aguilar in for retention Review of Systems General: Fatigue Neurological: Weakness, Incoordination Objective Exam Vital Signs Vital Signs Date Time Temp Pulse Resp B/P (MAP) Pulse Ox O2 Delivery O2 Flow Rate FiO2 09/13/21 21:00 99 Room Air 09/13/21 20:00 36.8 70 20 122/76 (91) Capillary Refill : General Appearance: No Apparent Distress, WD/WN, Chronically ill, Obese HEENT: PERRL/EOMI, Normal ENT Inspection, Pharynx Normal Neck: Full Range of Motion, Normal Inspection, Non Tender, Supple, Carotid Bruit Respiratory: Chest Non Tender, Lungs Clear, Normal Breath Sounds, No Accessory Muscle Use, No Respiratory Distress Cardiovascular: Regular Rate, Rhythm, No Edema, No Gallop, No JVD, No Murmur, Normal Peripheral Pulses Gastrointestinal: Normal Bowel Sounds, No Organomegaly, No Pulsatile Mass, Non Tender, Soft Back: Normal Inspection, No CVA Tenderness, No Vertebral Tenderness, Decreased Range of Motion Extremity: Normal Capillary Refill, Normal Inspection, Normal Range of Motion, Non Tender, No Calf Tenderness, No Pedal Edema Neurologic/Psychiatric: Alert, Oriented x3, Normal Mood/Affect, Abnormal Gait, Motor Weakness Skin: Normal Color, Warm/Dry Lymphatic: No Adenopathy Results/Procedures Lab Laboratory Tests 09/13/21 05:56 Patient resulted labs reviewed. FIM Transfers Therapy Code Descriptions/Definitions Functional [place] Measure: 0=Not Assessed/NA 4=Minimal Assistance 1=Total Assistance 5=Supervision or Setup 2=Maximal Assistance 6=Modified [place] 3=Moderate Assistance 7=Complete IndependenceSCALE: Activities may be completed with or without assistive devices. 8-Rlisyqjagx-vqxpvyt completes the activity by him/herself with no assistance from a helper. 5-Set-up or Clean-up Assistance-helper sets up or cleans up; patient completes activity. [place] assists only prior to or following the activity. 4-Supervision or Touching Assistance-helper provides verbal cues and/or touching/steadying and/or contact guard assistance as patient completes activity. Assistance may be provided throughout the activity or intermittently. 3-Partial/Moderate Assistance-helper does LESS THAN HALF the effort. [place] lift s, holds or supports trunk or limbs, but provides less than half the effort. 2-Substantial/Maximal Assistance-helper does MORE THAN HALF the effort. [place] lifts or holds trunk or limbs and provides more than half the effort. 6-Prfsmvuwz-jqweoj does ALL the effort. Patient does none of the effort to complete the activity. Or, the assistance of 2 or more helpers is required for the patient to complete the activity. If activity was not attempted, code reason: 7-Patient Refused. 9-Not Applicable-not attempted and the patient did not perform the activity before the current illness, exacerbation or injury. 10-Not Attempted due to Environmental Limitations-(lack of equipment, weather restraints, etc.). 88-Not Attempted due to Medical Conditions or Safety Concerns. Roll Left to Right (QC): 3 Sit to Lying (QC): 3 Sit to Stand (QC): 3 Chair/Mug-qp-Piahg Xfer(QC): 3 Car Transfer (QC): 88 Gait Training Does the Patient Walk?: No and Walking Goal NOT indicated Walk 10 feet (QC): 88 Walk 50 ft with 2 Turns(QC): 88 Walk 150 ft (QC): 88 Walking 10ft/uneven surface-QC: 88 Wheelchair Training Does the Pt Use a Wheelchair?: Yes Wheel 50 ft with 2 turns (QC): 3 Wheel 150 ft (QC): 3 Type of Wheelchair: Manual Stair Training 1 Step (curb) (QC): 88 4 Steps (QC): 88 12 Steps (QC): 88 Balance Picking up an Object (QC): 88 ADL-Treatment Eating (QC): 4 Oral Hygiene (QC): 4 Shower/Bathe Self (QC): 2 Upper Body Dressing (QC): 2 Lower Body Dressing (QC): 1 On/Off Footwear (QC): 2 Toileting Hygiene (QC): 1 Toilet Transfer (QC): 1 Assessment/Plan Assessment and Plan Assess & Plan/Chief Complaint Assessment: 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 Diabetes ebc-yw-fagrgnu Hypertension Hyperlipidemia Previous CVA with right-sided weakness Coccyx decubitus ulcers Plan: Aggressive therapy Pain control Monitor bowel function Insulin 09/02/2021: Supportive care Aggressive therapy Hold insulin 09/03/2021: Supportive care Cervical spine collar Aguilar catheter 09/04/2021: Supportive care Cervical spine collar Aguilar catheter Pilar lift We'll start Lovenox tomorrow 09/05/2021: Supportive care Lovenox Maintain Aguilar 09/06/2021: Maintain Aguilar Continues to be Pilar lift 09/07/2021: Coccyx decubitus ulcer management 09/08/2021: Imodium for loose stools Continue to progress 09/09/2021: Imodium for loose stools Supportive care 09/10/2021: Supportive care Dramatic improvement 09/11/2021: Supportive care We will attempt to DC Aguilar catheter this week 09/12/2021: Attempt to DC Aguilar catheter Supportive care 09/13/21: Voiding trial Monitor sugar (1) Cervical spine syndrome (2) Myoclonus (3) Type 2 diabetes mellitus without complication (4) Primary hypertension (5) Mixed hyperlipidemia (6) History of CVA with residual deficit (7) Right sided weakness (8) Cervical cord myelomalacia (9) Spinal cord contusion (10) Fall Status: Acute SHAYNE JAMES DO Sep 13, 2021 06:47
[2021-09-13 07:11] LABS: BASOPHILS % (AUTO) 0 % (0-10); EOSINOPHILS # (AUTO) 0.6 10^3/uL (0.0-0.3); EOSINOPHILS % (AUTO) 6 % (0-10); HEMATOCRIT 32 % (40-54); HEMOGLOBIN 10.6 g/dL (13.3-17.7); LYMPHOCYTES # (AUTO) 2.6 10^3/uL (1.0-4.0); LYMPHOCYTES % (AUTO) 28 % (12-44); MEAN CORPUSCULAR HEMOGLOBIN 29 pg (25-34); MEAN CORPUSCULAR HGB CONC 33 g/dL (32-36); MEAN CORPUSCULAR VOLUME 86 fL (80-99); MEAN PLATELET VOLUME 9.7 fL (9.0-12.2); MONOCYTES # (AUTO) 0.5 10^3/uL (0.0-1.0); MONOCYTES % (AUTO) 6 % (0-12); NEUTROPHILS # (AUTO) 5.4 10^3/uL (1.8-7.8); NEUTROPHILS % (AUTO) 59 % (42-75); PLATELET COUNT 222 10^3/uL (130-400); WHITE BLOOD COUNT 9.1 10^3/uL (4.3-11.0)
[2021-09-13 07:25] LABS: ALBUMIN 2.9 GM/DL (3.2-4.5)
[2021-09-13 07:28] LABS: TOTAL PROTEIN 6.6 GM/DL (6.4-8.2)
[2021-09-13 07:30] LABS: BILIRUBIN,TOTAL 0.2 MG/DL (0.1-1.0)
[2021-09-13 07:31] LABS: CREATININE SERUM 1.11 MG/DL (0.60-1.30)
[2021-09-13 07:55] VITALS: BP 96/60
[2021-09-13] MEDS: meTOprolol TARTRATE 25 MG (LOPRESSOR) TABLET PO SCH ×2 (08:38→21:00)
[2021-09-13] MEDS: PANTOPRAZOLE 40 MG (PROTONIX) TAB PO SCH ×2 (08:38→20:59)
[2021-09-13] MEDS: amLODIPine 5 MG (NORVASC) TAB PO SCH (08:38)
[2021-09-13] MEDS: ENOXAPARIN 40 MG/0.4 ML (LOVENOX) SYR SC SCH (08:39)
[2021-09-13 08:50] VITALS: BP 114/62
--- NOTE | 2021-09-13 08:58 | Physical Therapy Daily Note ---
PT Daily Note-Current Subjective Patient in bed pre tx, agrees to PT, has no complaints of pain. Will be co- treating with OT due to poor patient mobility, strength, endurance, severe debility, coordinate UE and LE during activity, safety and reduce risk of falls. Appearance Patient in recliner post tx with veronica sling under him for nursing, has nurse call, phone, tray. Mental Status Patient Orientation: Person, Unable to Assess Attachments: Tyson Catheter Transfers SCALE: Activities may be completed with or without assistive devices. 5-Tdxuzxawut-kdyapeu completes the activity by him/herself with no assistance from a helper. 5-Set-up or Clean-up Assistance-helper sets up or cleans up; patient completes activity. [place] assists only prior to or following the activity. 4-Supervision or Touching Assistance-helper provides verbal cues and/or touching/steadying and/or contact guard assistance as patient completes activity. Assistance may be provided throughout the activity or intermittently. 3-Partial/Moderate Assistance-helper does LESS THAN HALF the effort. [place] lifts, holds or supports trunk or limbs, but provides less than half the effort. 2-Substantial/Maximal Assistance-helper does MORE THAN HALF the effort. [place] lifts or holds trunk or limbs and provides more than half the effort. 6-Fmfahbywa-wiruvx does ALL the effort. Patient does none of the effort to complete the activity. Or, the assistance of 2 or more helpers is required for the patient to complete the activity. If activity was not attempted, code reason: 7-Patient Refused. 9-Not Applicable-not attempted and the patient did not perform the activity before the current illness, exacerbation or injury. 10-Not Attempted due to Environmental Limitations-(lack of equipment, weather restraints, etc.). 88-Not Attempted due to Medical Conditions or Safety Concerns. Lying to Sitting/Side of Bed(Q: 4 Sit to Stand (QC): 3 Chair/Tbx-jn-Nxzgu Xfer(QC): 3 Stand pivot transfers are mod assist and he has a tendency to flex one knee or the other instead of extending. Patient transferred to shower chair, taken to shower, showered, stood in shower to get brief on, transferred to and taken to therapy gym. Gait Training Distance: 5'x3 Gait Persons Needed: 1 Gait Assistive Device: Parallel Bars max assist, careful positioning and knee blocking, WC follow in parallel bars Wheelchair Training Does the Pt Use a Wheelchair?: Yes Type of Wheelchair: Manual 100'x2, min assist Treatments PT performed bed mobility and transfers, ambulation, WC mobility, standing and positioning during bathing and dressing, OT performed bathing, dressing, UE positioning and safety during activity. Assessment Current Status: Fair Progress Patient was able to take steps in parallel bars for the first time PT Short Term Goals Short Term Goals Time Frame: Sep 08, 2021 Roll Left & Right: 4 Sit to lyin Lying to sitting on side of be: 3 Sit to stand: 2 Chair/ige-of-xylwg transfer: 2 PT Commercial Specialist Goals Mcc Goals PT Commercial Specialist Goals Time Frame: Sep 22, 2021 Roll Left & Right (QC): 4 Sit to Lying (QC): 4 Lying-Sitting on Side/Bed(QC): 4 Sit to Stand (QC): 3 Chair/Tfc-fq-Gbcda Xfer(QC): 3 Toilet Transfer (QC): 3 Car Transfer (QC): 3 Does the Patient Walk: No and Walking Goal NOT indicated Walk 10 feet (QC): 88 Walk 50ft with 2 Turns (QC): 88 Walk 150 ft (QC): 88 Walking 10ft on Uneven Surface: 88 1 Step (curb) (QC): 88 4 Steps (QC): 88 12 Steps (QC): 88 Picking up an Object (QC): 3 Does the Pt use WC or Scooter?: Yes Wheel 50 feet with 2 turns (QC: 3 Type: Manual Wheel 150 feet: 3 Type: Manual PT Plan Problem List Problem List: Activity Tolerance, Functional Strength, Safety, Balance, Gait, Transfer, Bed Mobility, ROM Treatment/Plan Treatment Plan: Continue Plan of Care Treatment Plan: Bed Mobility, Education, Functional Activity Sara, Functional Strength, Group Therapy, Safety, Therapeutic Exercise, Transfers Treatment Duration: Sep 13, 2021 Frequency: At least 5 of 7 days/Wk (IRF) Estimated Hrs Per Day: 1.5 hours per day Patient and/or Family Agrees t: Yes Safety Risks/Education Patient Education: Gait Training, Transfer Techniques, Correct Positioning, W/C Management, Safety Issues Teaching Recipient: Patient Teaching Methods: Demonstration, Discussion Response to Teaching: Reinforcement Needed Time/GCodes Time In: 0800 Time Out: 0900 Total Billed Treatment Time: 60 Total Billed Treatment 1 visit FA 60' VERONICA MONIQUE PT Sep 13, 2021 08:58
--- NOTE | 2021-09-13 09:01 | Occupational Ther Daily Note ---
OT Current Status-Daily Note Subjective Pt in good spirits, agreeable to co treat with PT due to need of 2 skilled clinicians to progress indep with adls and mobility. Appearance Pt left sitting in recliner, all needs within reach. ADL-Treatment Therapy Code Descriptions/Definitions Functional [place] Measure: 0=Not Assessed/NA 4=Minimal Assistance 1=Total Assistance 5=Supervision or Setup 2=Maximal Assistance 6=Modified [place] 3=Moderate Assistance 7=Complete IndependenceSCALE: Activities may be completed with or without assistive devices. 7-Avtjnfegfc-zwmbxui completes the activity by him/herself with no assistance from a helper. 5-Set-up or Clean-up Assistance-helper sets up or cleans up; patient completes activity. [place] assists only prior to or following the activity. 4-Supervision or Touching Assistance-helper provides verbal cues and/or touching/steadying and/or contact guard assistance as patient completes activity. Assistance may be provided throughout the activity or intermittently. 3-Partial/Moderate Assistance-helper does LESS THAN HALF the effort. [place] lift s, holds or supports trunk or limbs, but provides less than half the effort. 2-Substantial/Maximal Assistance-helper does MORE THAN HALF the effort. [place] lifts or holds trunk or limbs and provides more than half the effort. 9-Tsxbqimmf-anqqka does ALL the effort. Patient does none of the effort to complete the activity. Or, the assistance of 2 or more helpers is required for the patient to complete the activity. If activity was not attempted, code reason: 7-Patient Refused. 9-Not Applicable-not attempted and the patient did not perform the activity before the current illness, exacerbation or injury. 10-Not Attempted due to Environmental Limitations-(lack of equipment, weather restraints, etc.). 88-Not Attempted due to Medical Conditions or Safety Concerns. Eating (QC): 5 Oral Hygiene (QC): 4 Shower/Bathe Self (QC): 3 Lower Body Dressing (QC): 1 On/Off Footwear: 2 Toileting Hygiene (QC): 1 Toilet Transfer (QC): 1 Shower performed; 100% completed in sitting (shower w/c). Dependent to wash buttocks. Great improvement in management of hand held shower. Pt able to wash under bilateral arms, chest, latonya area and upper thighs. LHS utilized to wash below knees, Assist for thoroughness as well as R axilla. Assist to lift/cross and maintain figure 4 position in order for pt to thread BLE's into brief. Min- mod a to manage around feet but great improvement seen from past sessions. Pt stood with Mod a x1 as second person manage clothing up to waist. Pt with more knee buckling this date. Requires second person for all standing/safety. Mod-max a still needed to don socks but pt demonstrates ability to utilize bilateral integration this date during task. Other Treatment Pt took ~6-8 steps x3 in parallel bars with max a. 2nd person following for safety due to knee buckling. LLE has tendency to adduct in towards RLE during gait. Assist required to transition L foot and keep proper MAINOR. Min cues for upright posture during ambulation, especially with fatigue. Education OT Patient Education: Correct positioning, Energy conservation, Modified ADL techniques, Progress toward Goal/Update tx plan, Purpose of tx/functional activities, Rehab process, Safety issues, Transfer techniques, Use of adapted e quipment, W/C management Teaching Recipient: Patient Teaching Methods: Demonstration, Discussion Response to Teaching: Return Demonstration, Reinforcement Needed OT Short Term Goals Short Term Goals Time Frame: Sep 22, 2021 Toileting hygiene: 2 Shower/bathe self: 2 Upper body dressin Lower body dressin Putting on/taking off footwear: 3 OT Mcc Goals Flight Readiness Technician Goals Time Frame: Oct 01, 2021 Eating (QC): 5 Oral Hygiene (QC): 6 Toileting Hygiene (QC): 4 Shower/Bathe Self (QC): 4 Upper Body Dressing (QC): 5 Lower Body Dressing (QC): 4 On/Off Footwear (QC): 4 Additional Goals: 1-Demonstrate ADL Tasks, 2-Verbalize Understanding, 3- ImproveStrength/Sara 1=Demonstrate adherence to instructed precautions during ADL tasks. 2=Patient will verbalize/demonstrate understanding of assistive devices/modifications for ADL. 3=Patient will improve strength/tolerance for activity to enable patient to perform ADL's. OT Education/Plan Problem List/Assessment Assessment: Decreased Activ Tolerance, Decreased Safety Aware, Decreased UE Strength, Dependent Transfers, Impaired Cognition, Impaired Coordination, Impaired Funct Balance, Impaired I ADL's, Impaired Self-Care Skills, Restricted Funct UE ROM Discharge Recommendations Plan/Recommendations: Continue POC Therapy Discharge Recommendati: Post Acute OT Treatment Plan/Plan of Care Treatment,Training & Education: Yes Patient would benefit from OT for education, treatment and training to promote independence in ADL's, mobility, safety and/or upper extremity function for ADL's. Plan of Care: ADL Retraining, Functional Mobility, Group Exercise/Act as Ind, UE Funct Exercise/Act, UE Neuromus Re-Ed/Coord Treatment Duration: Oct 01, 2021 Frequency: At least 5 of 7 days/Wk (IRF) Estimated Hrs Per Day: 1.5 hours per day Agreement: Yes Rehab Potential: Fair Time/GCodes Start Time: 08:00 Stop Time: 09:00 Total Time Billed (hr/min): 60 Billed Treatment Time 1 visit ADL x3 (40 min) FA (20 min) Nisreen Lowe OT Sep 13, 2021 09:01
--- NOTE | 2021-09-13 10:26 | Physical Therapy Daily Note ---
PT Daily Note-Current Subjective Patient in recliner pre tx, agrees to PT, has no complaints of pain. Appearance Patient in recliner post tx with nurse call, phone, tray, all needs met. Mental Status Patient Orientation: Person, Unable to Assess cervical collar Transfers SCALE: Activities may be completed with or without assistive devices. 6-Xmspnczhnu-szdavsc completes the activity by him/herself with no assistance from a helper. 5-Set-up or Clean-up Assistance-helper sets up or cleans up; patient completes activity. [place] assists only prior to or following the activity. 4-Supervision or Touching Assistance-helper provides verbal cues and/or touching/steadying and/or contact guard assistance as patient completes activity. Assistance may be provided throughout the activity or intermittently. 3-Partial/Moderate Assistance-helper does LESS THAN HALF the effort. [place] lifts, holds or supports trunk or limbs, but provides less than half the effort. 2-Substantial/Maximal Assistance-helper does MORE THAN HALF the effort. [place] lifts or holds trunk or limbs and provides more than half the effort. 5-Xzrawovze-azwwyo does ALL the effort. Patient does none of the effort to complete the activity. Or, the assistance of 2 or more helpers is required for the patient to complete the activity. If activity was not attempted, code reason: 7-Patient Refused. 9-Not Applicable-not attempted and the patient did not perform the activity before the current illness, exacerbation or injury. 10-Not Attempted due to Environmental Limitations-(lack of equipment, weather restraints, etc.). 88-Not Attempted due to Medical Conditions or Safety Concerns. Exercises Supine Ex: Ankle pumps, Quad Set, Glut sets, Heel Slides (AAROM), Short Arc Quads, Straight leg raise (AAROM), Hip abd/add Supine Reps: 20 (done in recliner with legs elevated) Seated Therapy Exercises: Hip flexion, Hip abd/add (with ball and RTB) Seated Reps: 20 LAQ alternating for 5 min Treatments LE strengthening Assessment Current Status: Fair Progress slowly improving LE strength PT Short Term Goals Short Term Goals Time Frame: Sep 08, 2021 Roll Left & Right: 4 Sit to lyin Lying to sitting on side of be: 3 Sit to stand: 2 Chair/jzh-pn-bfrvx transfer: 2 PT Rn Internal Medicine Goals Correction Goals PT Rn Internal Medicine Goals Time Frame: Sep 22, 2021 Roll Left & Right (QC): 4 Sit to Lying (QC): 4 Lying-Sitting on Side/Bed(QC): 4 Sit to Stand (QC): 3 Chair/Lhz-va-Uewgn Xfer(QC): 3 Toilet Transfer (QC): 3 Car Transfer (QC): 3 Does the Patient Walk: No and Walking Goal NOT indicated Walk 10 feet (QC): 88 Walk 50ft with 2 Turns (QC): 88 Walk 150 ft (QC): 88 Walking 10ft on Uneven Surface: 88 1 Step (curb) (QC): 88 4 Steps (QC): 88 12 Steps (QC): 88 Picking up an Object (QC): 3 Does the Pt use WC or Scooter?: Yes Wheel 50 feet with 2 turns (QC: 3 Type: Manual Wheel 150 feet: 3 Type: Manual PT Plan Problem List Problem List: Activity Tolerance, Functional Strength, Safety, Balance, Gait, Transfer, Bed Mobility, ROM Treatment/Plan Treatment Plan: Continue Plan of Care Treatment Plan: Bed Mobility, Education, Functional Activity Sara, Functional Strength, Group Therapy, Safety, Therapeutic Exercise, Transfers Treatment Duration: Sep 13, 2021 Frequency: At least 5 of 7 days/Wk (IRF) Estimated Hrs Per Day: 1.5 hours per day Patient and/or Family Agrees t: Yes Safety Risks/Education Patient Education: Correct Positioning, Safety Issues Teaching Recipient: Patient Teaching Methods: Demonstration, Discussion Response to Teaching: Reinforcement Needed Time/GCodes Time In: 1000 Time Out: 1030 Total Billed Treatment Time: 30 Total Billed Treatment 1 visit EX 30' VERONICA MONIQUE PT Sep 13, 2021 10:26
[2021-09-13] MEDS: polyethylene glycoL POWDER 17 GM (MIRALAX) PACK PO SCH ×2 (11:42→21:09)
[2021-09-13] MEDS: SENNA W/DOCUSATE (SENOKOT S) TABLET PO SCH ×2 (11:51→21:09)
[2021-09-13] MEDS: DOCUSATE SODIUM 100 MG (COLACE) CAP PO SCH ×2 (11:51→21:09)
--- NOTE | 2021-09-13 12:55 | Occupational Ther Daily Note ---
OT Current Status-Daily Note Subjective Pt agreeable to OT treatment. Appearance Left sitting in recliner, all needs within reach. ADL-Treatment Therapy Code Descriptions/Definitions Functional [place] Measure: 0=Not Assessed/NA 4=Minimal Assistance 1=Total Assistance 5=Supervision or Setup 2=Maximal Assistance 6=Modified [place] 3=Moderate Assistance 7=Complete IndependenceSCALE: Activities may be completed with or without assistive devices. 3-Wtzwlvzafj-ggnpslx completes the activity by him/herself with no assistance from a helper. 5-Set-up or Clean-up Assistance-helper sets up or cleans up; patient completes activity. [place] assists only prior to or following the activity. 4-Supervision or Touching Assistance-helper provides verbal cues and/or touching/steadying and/or contact guard assistance as patient completes activity. Assistance may be provided throughout the activity or intermittently. 3-Partial/Moderate Assistance-helper does LESS THAN HALF the effort. [place] lifts, holds or supports trunk or limbs, but provides less than half the effort. 2-Substantial/Maximal Assistance-helper does MORE THAN HALF the effort. [place] lifts or holds trunk or limbs and provides more than half the effort. 9-Jjnaxjvtd-hpkbac does ALL the effort. Patient does none of the effort to complete the activity. Or, the assistance of 2 or more helpers is required for the patient to complete the activity. If activity was not attempted, code reason: 7-Patient Refused. 9-Not Applicable-not attempted and the patient did not perform the activity before the current illness, exacerbation or injury. 10-Not Attempted due to Environmental Limitations-(lack of equipment, weather restraints, etc.). 88-Not Attempted due to Medical Conditions or Safety Concerns. Other Treatment Pt participated in multiple dexterity tasks with goal to increase repetitions of pinch, grasp, and reaching needed for functional tasks. Pt able to perform tip pinch with L hand to pinch 1 inch block. He was able to build block tower with 8 blocks this date, extra time and assist from R hand to straighten/stabilize tower. Pt then performed bilateral integration tasks such as twisting lids on/off different size containers. OT attempted at educating pt on compensatory strategies such as twisting container vs lid and holding container at a low height with it on its side to reduce compensation at shoulder. Activity performed with both R and L hands alternating manipulating lid and holding co ntain/jar. OT reinforced use of L hand throughout daily activities. Education OT Patient Education: Correct positioning, Exercise program, Modified ADL techniques, Purpose of tx/functional activities Teaching Recipient: Patient Teaching Methods: Demonstration, Discussion Response to Teaching: Return Demonstration, Reinforcement Needed OT Short Term Goals Short Term Goals Time Frame: Sep 22, 2021 Toileting hygiene: 2 Shower/bathe self: 2 Upper body dressin Lower body dressin Putting on/taking off footwear: 3 OT Retirement Goals Retirement Goals Time Frame: Oct 01, 2021 Eating (QC): 5 Oral Hygiene (QC): 6 Toileting Hygiene (QC): 4 Shower/Bathe Self (QC): 4 Upper Body Dressing (QC): 5 Lower Body Dressing (QC): 4 On/Off Footwear (QC): 4 Additional Goals: 1-Demonstrate ADL Tasks, 2-Verbalize Understanding, 3- ImproveStrength/Sara 1=Demonstrate adherence to instructed precautions during ADL tasks. 2=Patient will verbalize/demonstrate understanding of assistive devices/modifications for ADL. 3=Patient will improve strength/tolerance for activity to enable patient to perform ADL's. OT Education/Plan Problem List/Assessment Assessment: Decreased Activ Tolerance, Decreased Safety Aware, Decreased UE Strength, Dependent Transfers, Impaired Coordination, Impaired Funct Balance, Impaired I ADL's, Impaired Self-Care Skills, Restricted Funct UE ROM Discharge Recommendations Plan/Recommendations: Continue POC Therapy Discharge Recommendati: Post Acute OT Treatment Plan/Plan of Care Patient would benefit from OT for education, treatment and training to promote independence in ADL's, mobility, safety and/or upper extremity function for ADL's. Plan of Care: ADL Retraining, Functional Mobility, Group Exercise/Act as Ind, UE Funct Exercise/Act, UE Neuromus Re-Ed/Coord Treatment Duration: Oct 01, 2021 Frequency: At least 5 of 7 days/Wk (IRF) Estimated Hrs Per Day: 1.5 hours per day Agreement: Yes Rehab Potential: Fair Time/GCodes Start Time: 11:35 Stop Time: 12:05 Total Time Billed (hr/min): 30 Billed Treatment Time 1 visit Nisreen Walker OT Sep 13, 2021 12:55
[2021-09-13 20:00] VITALS: BP 122/76
[2021-09-13] MEDS ORDERED: LIDOCAINE UROJET 2% GEL 10 ML PKG TOP ONE (20:00)
[2021-09-13] MEDS ORDERED: LIDOCAINE UROJET 2% GEL 10 ML PKG ONE (20:08)
[2021-09-13] MEDS: ROSUVASTATIN 20 MG (CRESTOR) TABLET PO SCH (21:00)
[2021-09-14] MEDS: SUCRALFATE 1 GM (CARAFATE) TAB PO SCH ×4 (06:32→23:16)
[2021-09-14] MEDS: inSUlin ASPART (NovoLOG) 1 UNIT/0.01 ML (CHARGE PER UNIT) SC SCH ×4 (06:33→22:06)
--- NOTE | 2021-09-14 06:44 | PM&R Progress Note ---
Subjective HPI/CC On Admission Date Seen by Provider: Sep 14, 2021 Time Seen by Provider: 09:30 Subjective/Events-last exam 09/14/2021: Pt is not feeling well today Fever noted Had to put aguilar back in last night Suspect UTI Chest x-ray will be obtained also [place] [id number] Gaston regarding the consultation Cefepime and Vanc will be initiated to cover for pseudomonas and or enterococcus Zofran and IV fluid initiated 09/13/21: Pt is doing pretty well Will attempt to discontinue the catheter today. If he has retention it could be from the spinal cord injury and could very well require it to be indwelling. Labs reviewed Blood sugar is elevated from drinking orange juice all day 09/12/2021: Patient continues to improve No pain is reported Reviewed blood sugars Blood pressure stable 09/11/2021: Patient dramatically improved Loose stools still remain Patient denies pain Moving hands and feet very well 09/10/21: Patient doing remarkably well Gaining function with hands and feet Loose BM's Blood sugars 272 Checked meds and labs 09/09/2021: Patient doing well No pain is reported Blood sugars reviewed Blood pressure reviewed Able to feed himself 09/08/2021: Pt is doing well Eating well Able to feed himself with his right hand Loose stools will be given Imodium 09/07/2021: Pt is doing well Blood sugar is 127 Bowels are loose Coccyx has a decubitus ulcer and we will monitor that closely 09/06/2021: Pt is doing a lot better Hemoglobin was 10.2 Has a decubitus ulcer on his coccyx Low bp so holding Norvasc Pilar lift is being used 09/05/2021: Patient doing really well Requiring Pilar lift though Lovenox started today Blood sugars are variable 09/04/2021: Patient doing very well Requiring Pilar lift since he cannot use the sit to stand at this current time Moving his arms and hands better Blood sugar is a little bit elevated Blood pressure better Lovenox will be started tomorrow 09/03/2021: Pt is doing well Took a shower but then he couldn't really get back in bed Had some emesis so we'll start Protonix 40 mg BID and Carafate Aguilar cath remains due to retention 09/02/2021: Pt settling in well Holding all insulin due to hypoglycemia Had emesis last night Fed himself a bit today Keeping aguilar in for retention Review of Systems General: Fatigue, Malaise Focused Exam Lactate Level 09/14/21 09:15: Lactic Acid Level 0.68 Objective Exam Vital Signs Vital Signs Date Time Temp Pulse Resp B/P (MAP) Pulse Ox O2 Delivery O2 Flow Rate FiO2 09/14/21 21:00 Room Air 09/14/21 19:24 37.0 88 16 112/65 (81) 96 Capillary Refill : General Appearance: No Apparent Distress, WD/WN, Chronically ill, Obese HEENT: PERRL/EOMI, Normal ENT Inspection, Pharynx Normal Neck: Full Range of Motion, Normal Inspection, Non Tender, Supple, Carotid Bruit Respiratory: Chest Non Tender, Lungs Clear, Normal Breath Sounds, No Accessory Muscle Use, No Respiratory Distress Cardiovascular: Regular Rate, Rhythm, No Edema, No Gallop, No JVD, No Murmur, Normal Peripheral Pulses Gastrointestinal: Normal Bowel Sounds, No Organomegaly, No Pulsatile Mass, Non Tender, Soft Back: Normal Inspection, No CVA Tenderness, No Vertebral Tenderness, Decreased Range of Motion Extremity: Normal Capillary Refill, Normal Inspection, Normal Range of Motion, Non Tender, No Calf Tenderness, No Pedal Edema Neurologic/Psychiatric: Alert, Oriented x3, Normal Mood/Affect, Abnormal Gait, Motor Weakness Skin: Normal Color, Warm/Dry Lymphatic: No Adenopathy Results/Procedures Lab Laboratory Tests 09/14/21 09:15 Patient resulted labs reviewed. FIM Transfers Therapy Code Descriptions/Definitions Functional [place] Measure: 0=Not Assessed/NA 4=Minimal Assistance 1=Total Assistance 5=Supervision or Setup 2=Maximal Assistance 6=Modified [place] 3=Moderate Assistance 7=Complete IndependenceSCALE: Activities may be completed with or without assistive devices. 3-Wvlpqkrcbo-kynmjcp completes the activity by him/herself with no assistance from a helper. 5-Set-up or Clean-up Assistance-helper sets up or cleans up; patient completes activity. [place] assists only prior to or following the activity. 4-Supervision or Touching Assistance-helper provides verbal cues and/or touching/steadying and/or contact guard assistance as patient completes activity. Assistance may be provided throughout the activity or intermittently. 3-Partial/Moderate Assistance-helper does LESS THAN HALF the effort. [place] lifts, holds or supports trunk or limbs, but provides less than half the effort. 2-Substantial/Maximal Assistance-helper does MORE THAN HALF the effort. [place] lifts or holds trunk or limbs and provides more than half the effort. 5-Hxayyiszs-yqonmh does ALL the effort. Patient does none of the effort to complete the activity. Or, the assistance of 2 or more helpers is required for the patient to complete the activity. If activity was not attempted, code reason: 7-Patient Refused. 9-Not Applicable-not attempted and the patient did not perform the activity before the current illness, exacerbation or injury. 10-Not Attempted due to Environmental Limitations-(lack of equipment, weather restraints, etc.). 88-Not Attempted due to Medical Conditions or Safety Concerns. Roll Left to Right (QC): 3 Sit to Lying (QC): 3 Sit to Stand (QC): 3 Chair/Acf-tv-Sybba Xfer(QC): 3 Car Transfer (QC): 88 Gait Training Does the Patient Walk?: No and Walking Goal NOT indicated Distance: 5'x3 Walk 10 feet (QC): 88 Walk 50 ft with 2 Turns(QC): 88 Walk 150 ft (QC): 88 Walking 10ft/uneven surface-QC: 88 Gait Persons Needed: 1 Gait Assistive Device: Parallel Bars Wheelchair Training Does the Pt Use a Wheelchair?: Yes Wheel 50 ft with 2 turns (QC): 3 Wheel 150 ft (QC): 3 Type of Wheelchair: Manual Stair Training 1 Step (curb) (QC): 88 4 Steps (QC): 88 12 Steps (QC): 88 Balance Picking up an Object (QC): 88 ADL-Treatment Eating (QC): 5 Oral Hygiene (QC): 4 Shower/Bathe Self (QC): 3 Upper Body Dressing (QC): 2 Lower Body Dressing (QC): 1 On/Off Footwear (QC): 2 Toileting Hygiene (QC): 1 Toilet Transfer (QC): 1 Assessment/Plan Assessment and Plan Assess & Plan/Chief Complaint Assessment: 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 Diabetes dxa-bf-tnvaldm Hypertension Hyperlipidemia Previous CVA with right-sided weakness Coccyx decubitus ulcers Plan: Aggressive therapy Pain control Monitor bowel function Insulin 09/02/2021: Supportive care Aggressive therapy Hold insulin 09/03/2021: Supportive care Cervical spine collar Aguilar catheter 09/04/2021: Supportive care Cervical spine collar Aguilar catheter Pilar lift We'll start Lovenox tomorrow 09/05/2021: Supportive care Lovenox Maintain Aguilar 09/06/2021: Maintain Aguilar Continues to be Pilar lift 09/07/2021: Coccyx decubitus ulcer management 09/08/2021: Imodium for loose stools Continue to progress 09/09/2021: Imodium for loose stools Supportive care 09/10/2021: Supportive care Dramatic improvement 09/11/2021: Supportive care We will attempt to DC Aguilar catheter this week 09/12/2021: Attempt to DC Aguilar catheter Supportive care 09/13/21: Voiding trial Monitor sugar 09/14/2021: Empiric antibiotics Urology consultation (1) Cervical spine syndrome (2) Myoclonus (3) Type 2 diabetes mellitus without complication (4) Primary hypertension (5) Mixed hyperlipidemia (6) History of CVA with residual deficit (7) Right sided weakness (8) Cervical cord myelomalacia (9) Spinal cord contusion (10) Fall Status: Acute JAMESSHAYNE DO Sep 14, 2021 06:44
[2021-09-14 07:33] VITALS: BP 117/63
[2021-09-14] MEDS: ONDANSETRON 4 MG (ZOFRAN) ORAL DISSOLVE TAB PO PRN (08:18)
[2021-09-14] MEDS: SENNA W/DOCUSATE (SENOKOT S) TABLET PO SCH ×2 (08:18→22:06)
[2021-09-14] MEDS: polyethylene glycoL POWDER 17 GM (MIRALAX) PACK PO SCH ×2 (08:18→22:05)
[2021-09-14] MEDS: DOCUSATE SODIUM 100 MG (COLACE) CAP PO SCH ×2 (08:18→22:05)
[2021-09-14] MEDS: PANTOPRAZOLE 40 MG (PROTONIX) TAB PO SCH ×2 (08:50→23:16)
[2021-09-14] MEDS: ENOXAPARIN 40 MG/0.4 ML (LOVENOX) SYR SC SCH (08:50)
--- NOTE | 2021-09-14 08:50 | Physical Therapy Daily Note ---
PT Daily Note-Current Subjective Patient in recliner pre tx, agrees to PT, has unrated left shoulder pain. Will be co-treating with OT due to poor patient mobility, strength, endurance, severe debility, coordinate UE and LE during activity, safety and reduce risk of falls. Appearance Patient in bed post tx with nurse call, phone, tray, all needs met. Mental Status Patient Orientation: Person, Unable to Assess cervical collar Transfers SCALE: Activities may be completed with or without assistive devices. 5-Wsunaofcqy-nhalnbx completes the activity by him/herself with no assistance from a helper. 5-Set-up or Clean-up Assistance-helper sets up or cleans up; patient completes activity. [place] assists only prior to or following the activity. 4-Supervision or Touching Assistance-helper provides verbal cues and/or touching/steadying and/or contact guard assistance as patient completes act ivity. Assistance may be provided throughout the activity or intermittently. 3-Partial/Moderate Assistance-helper does LESS THAN HALF the effort. [place] lifts, holds or supports trunk or limbs, but provides less than half the effort. 2-Substantial/Maximal Assistance-helper does MORE THAN HALF the effort. [place] lifts or holds trunk or limbs and provides more than half the effort. 3-Kzquckhmr-dwnfgz does ALL the effort. Patient does none of the effort to complete the activity. Or, the assistance of 2 or more helpers is required for the patient to complete the activity. If activity was not attempted, code reason: 7-Patient Refused. 9-Not Applicable-not attempted and the patient did not perform the activity before the current illness, exacerbation or injury. 10-Not Attempted due to Environmental Limitations-(lack of equipment, weather restraints, etc.). 88-Not Attempted due to Medical Conditions or Safety Concerns. Roll Left & Right (QC): 3 Sit to Lying (QC): 1 Sit to Stand (QC): 2 Chair/Gaw-dq-Fflhc Xfer(QC): 2 Patient transferred to after getting brief on legs, brief pulled up during transfer. Patient wheels down the hallway and then to the therapy gym, he s tands in the parallel bars for about 30 seconds before needing to sit down. Patient is obviously not feeling well, nurse notified, he is nauseated, nurse gives him meds for this. Patient starts getting chills in therapy gym, taken back to his room and before the transfer to bed he vomits a large quantity in his basin. Max assist transfer back to bed and 2 people assist to lay down. Nurse notified of him being ill. Wheelchair Training Wheel 50 ft with 2 turns (QC): 3 Wheel 150 ft (QC): 3 Type of Wheelchair: Manual 300' min assist, uses right arm and leg Treatments PT performed standing during dressing, transfers, WC mobility, transfers, OT performed dressing, UE positioning and safety during activity. Assessment Current Status: Poor Progress patient is ill today PT Short Term Goals Short Term Goals Time Frame: Sep 08, 2021 Roll Left & Right: 4 Sit to lyin Lying to sitting on side of be: 3 Sit to stand: 2 Chair/lik-pp-gcvxu transfer: 2 PT Longterm Goals Loan Closer Goals PT Loan Closer Goals Time Frame: Sep 22, 2021 Roll Left & Right (QC): 4 Sit to Lying (QC): 4 Lying-Sitting on Side/Bed(QC): 4 Sit to Stand (QC): 3 Chair/Nnc-aj-Ajdbl Xfer(QC): 3 Toilet Transfer (QC): 3 Car Transfer (QC): 3 Does the Patient Walk: No and Walking Goal NOT indicated Walk 10 feet (QC): 88 Walk 50ft with 2 Turns (QC): 88 Walk 150 ft (QC): 88 Walking 10ft on Uneven Surface: 88 1 Step (curb) (QC): 88 4 Steps (QC): 88 12 Steps (QC): 88 Picking up an Object (QC): 3 Does the Pt use WC or Scooter?: Yes Wheel 50 feet with 2 turns (QC: 3 Type: Manual Wheel 150 feet: 3 Type: Manual PT Plan Problem List Problem List: Activity Tolerance, Functional Strength, Safety, Balance, Gait, Transfer, Bed Mobility, ROM Treatment/Plan Treatment Plan: Continue Plan of Care Treatment Plan: Bed Mobility, Education, Functional Activity Sara, Functional Strength, Group Therapy, Safety, Therapeutic Exercise, Transfers Treatment Duration: Sep 13, 2021 Frequency: At least 5 of 7 days/Wk (IRF) Estimated Hrs Per Day: 1.5 hours per day Patient and/or Family Agrees t: Yes Safety Risks/Education Patient Education: Transfer Techniques, Correct Positioning, W/C Management, Safety Issues Teaching Recipient: Patient Teaching Methods: Demonstration, Discussion Response to Teaching: Reinforcement Needed Time/GCodes Time In: 0800 Time Out: 0900 Total Billed Treatment Time: 60 Total Billed Treatment 1 visit FA 60' co-treated for 60' VERONICA MONIQUE PT Sep 14, 2021 08:50
--- NOTE | 2021-09-14 08:56 | Occupational Ther Daily Note ---
OT Current Status-Daily Note Subjective Pt alert, sitting in recliner. Pt agrees to therapy. Pt makes known that he is feeling ill, but is willing to continue to work. Nrsg aware of situation. Mental Status/Objective Patient Orientation: Person, Place, Time, Situation Attachments: Tyson Catheter, Other-See Comments (neck brace) ADL-Treatment Therapy Code Descriptions/Definitions Functional [place] Measure: 0=Not Assessed/NA 4=Minimal Assistance 1=Total Assistance 5=Supervision or Setup 2=Maximal Assistance 6=Modified [place] 3=Moderate Assistance 7=Complete IndependenceSCALE: Activities may be completed with or without assistive devices. 6-Yvvucpdzmv-jdhfnfu completes the activity by him/herself with no assistance from a helper. 5-Set-up or Clean-up Assistance-helper sets up or cleans up; patient completes activity. [place] assists only prior to or following the activity. 4-Supervision or Touching Assistance-helper provides verbal cues and/or touching/steadying and/or contact guard assistance as patient completes activity. Assistance may be provided throughout the activity or intermittently. 3-Partial/Moderate Assistance-helper does LESS THAN HALF the effort. [place] lifts, holds or supports trunk or limbs, but provides less than half the effort. 2-Substantial/Maximal Assistance-helper does MORE THAN HALF the effort. [place] lifts or holds trunk or limbs and provides more than half the effort. 1-Ykimhxaty-liwgem does ALL the effort. Patient does none of the effort to complete the activity. Or, the assistance of 2 or more helpers is required for the patient to complete the activity. If activity was not attempted, code reason: 7-Patient Refused. 9-Not Applicable-not attempted and the patient did not perform the activity before the current illness, exacerbation or injury. 10-Not Attempted due to Environmental Limitations-(lack of equipment, weather restraints, etc.). 88-Not Attempted due to Medical Conditions or Safety Concerns. Other Treatment PT/OT co-treat, skills of 2 clinicians required to decrease fall risk, increase mobility, increase B UE/LE movement/strength and increase activity tolerance. PT focusing on transfers, standing and w/c mobility while OT focusing on functional movement with B UE's, functional mobility. Pt's B knees buckling during all transfers and standing. Pt is more fatigued today and nauseated, nrsg aware and giving medicine. Pt working on using R UE/LE to propel w/c with min to mod A. Max A x2 for SPT during session. Pt vomited at end of session, nrsg aware. Pt requested to get back into bed. Pt positioned for comfort and warm blanket placed due to pt having cold chills. Call light/phone in reach at end of session. All needs met. OT Short Term Goals Short Term Goals Time Frame: Sep 22, 2021 Toileting hygiene: 2 Shower/bathe self: 2 Upper body dressin Lower body dressin Putting on/taking off footwear: 3 OT Brazing Machine Setter Goals Intermediate Goals Time Frame: Oct 01, 2021 Eating (QC): 5 Oral Hygiene (QC): 6 Toileting Hygiene (QC): 4 Shower/Bathe Self (QC): 4 Upper Body Dressing (QC): 5 Lower Body Dressing (QC): 4 On/Off Footwear (QC): 4 Additional Goals: 1-Demonstrate ADL Tasks, 2-Verbalize Understanding, 3-ImproveStrength/Sara 1=Demonstrate adherence to instructed precautions during ADL tasks. 2=Patient will verbalize/demonstrate understanding of assistive devices/modifications for ADL. 3=Patient will improve strength/tolerance for activity to enable patient to perform ADL's. OT Education/Plan Problem List/Assessment Assessment: Decreased Activ Tolerance, Dependent Transfers, Impaired Self-Care Skills, Restricted Funct UE ROM Discharge Recommendations Plan/Recommendations: Continue POC Treatment Plan/Plan of Care Patient would benefit from OT for education, treatment and training to promote independence in ADL's, mobility, safety and/or upper extremity function for ADL's. Plan of Care: ADL Retraining, Functional Mobility, Group Exercise/Act as Ind, UE Funct Exercise/Act, UE Neuromus Re-Ed/Coord Treatment Duration: Oct 01, 2021 Frequency: At least 5 of 7 days/Wk (IRF) Estimated Hrs Per Day: 1.5 hours per day Agreement: Yes Rehab Potential: Fair Time/GCodes Start Time: 08:00 Stop Time: 09:00 Total Time Billed (hr/min): 60 Billed Treatment Time 1 visit-FA 4 (60 min) cotreat with PT [id number] LEO ZHU Sep 14, 2021 08:56
[2021-09-14 09:33] LABS: BILIRUBIN,URINE NEGATIVE (NEGATIVE); CLARITY,URINE SL CLOUDY; COLOR,URINE YELLOW; GLUCOSE, URINE (UA) TRACE (NEGATIVE); KETONES,URINE NEGATIVE (NEGATIVE); LEUKOCYTE ESTERASE ,URINE 2+ (NEGATIVE); NITRITE,URINE NEGATIVE (NEGATIVE); PH,URINE 6.5 (5-9); PROTEIN,URINE 2+ (NEGATIVE)
[2021-09-14 09:42] LABS: BASOPHILS # (AUTO) 0.1 10^3/uL (0.0-0.1); BASOPHILS % (AUTO) 0 % (0-10); EOSINOPHILS # (AUTO) 0.3 10^3/uL (0.0-0.3); EOSINOPHILS % (AUTO) 2 % (0-10); HEMATOCRIT 33 % (40-54); HEMOGLOBIN 11.3 g/dL (13.3-17.7); LYMPHOCYTES # (AUTO) 0.8 10^3/uL (1.0-4.0); LYMPHOCYTES % (AUTO) 4 % (12-44); MEAN CORPUSCULAR HEMOGLOBIN 30 pg (25-34); MEAN CORPUSCULAR HGB CONC 35 g/dL (32-36); MEAN CORPUSCULAR VOLUME 85 fL (80-99); MEAN PLATELET VOLUME 9.3 fL (9.0-12.2); MONOCYTES # (AUTO) 0.9 10^3/uL (0.0-1.0); MONOCYTES % (AUTO) 5 % (0-12); NEUTROPHILS # (AUTO) 15.1 10^3/uL (1.8-7.8); NEUTROPHILS % (AUTO) 88 % (42-75); PLATELET COUNT 175 10^3/uL (130-400); WHITE BLOOD COUNT 17.1 10^3/uL (4.3-11.0)
[2021-09-14 10:07] LABS: ALBUMIN 3.1 GM/DL (3.2-4.5); BILIRUBIN,TOTAL 0.3 MG/DL (0.1-1.0); CALCIUM 8.7 MG/DL (8.5-10.1); CREATININE SERUM 1.15 MG/DL (0.60-1.30); POTASSIUM 4.5 MMOL/L (3.6-5.0); TOTAL PROTEIN 6.8 GM/DL (6.4-8.2)
[2021-09-14] MEDS ORDERED: PROMETHAZINE INJ 25 MG/ML (PHENERGAN) AMP IM PRN (10:15)
[2021-09-14] MEDS ORDERED: VANCOMYCIN INJECTION 1,000 MG in NS (IVPB) 250 ML IV SCH (10:15)
[2021-09-14 10:19] LABS: BACTERIA,URINE FEW /HPF; YEAST,URINE FEW /HPF
[2021-09-14] MEDS: NS IV 1000 ML 1,000 ML IV SCH ×2 (10:28→23:02)
[2021-09-14] MEDS: CEFEPIME INJECTION 1,000 MG in NS (IVPB) 50 ML IV SCH ×3 (10:30→23:04)
[2021-09-14] MEDS: amLODIPine 5 MG (NORVASC) TAB PO SCH (10:33)
[2021-09-14] MEDS: BETHANECHOL 25 MG (URECHOLINE) TAB PO SCH ×3 (10:33→22:28)
[2021-09-14] MEDS: meTOprolol TARTRATE 25 MG (LOPRESSOR) TABLET PO SCH ×2 (10:33→23:16)
[2021-09-14 10:42] LABS: ATYPICAL LYMPHOCYTES 2 %; BAND NEUTROPHILS 1 %; EOSINOPHILS % (MANUAL) 5 %; LYMPHOCYTES % (MANUAL) 5 %; MICROCYTOSIS SLIGHT; MONOCYTES % (MANUAL) 3 %; NEUTROPHILS % (MANUAL) 83 %; PLATELET CLUMPS SLIGHT; POLYCHROMASIA MODERATE; REACTIVE LYMPHOCYTES 1 %
[2021-09-14] MEDS ORDERED: VANCOMYCIN 1250 MG/NS 250 ML IVPB IV NR ×2 (11:00)
--- NOTE | 2021-09-14 11:25 | Diagnostic Imaging Report ---
INDICATION: Fever. FINDINGS: Lungs are clear. No failure, effusion, or pneumothorax. IMPRESSION: No acute-appearing abnormality. Dictated by: Dictated on workstation # [id number]
--- NOTE | 2021-09-14 13:24 | CONSULTATION REPORT ---
DATE OF SERVICE: 09/14/2021 ATTENDING PHYSICIAN: Dr. Bell. SUMMARY: After reviewing the patient's record from which I obtained the information as well from the nurse, the patient does not speak [place] well at all. He is from the [facility], apparently had some cervical spine issues for needing the acute decompression and here for recovery and rehabilitation. He has been having trouble with voiding and urination. He has apparently a history of CVA with right sided weakness, uncontrolled diabetes with insulin type. Tyson catheter was reinserted with apparently some difficulty, but draining well. IMPRESSION: Neurogenic bladder with retention. PLAN: Leave the Tyson catheter in for a few days. We will start him now on Flomax 0.4 mg daily and Urecholine 25 mg before meals and at bedtime if it is okay with Dr. Bell and then we will later on give him a trial of voiding. Job ID: [id number] DocumentID: [id number] Dictated Date: 09/14/2021 10:13:22 Key Entry Operator Date: 09/14/2021 13:24:10 Dictated By: VICKI DEL ROSARIO MD
--- NOTE | 2021-09-14 13:56 | Physical Therapy Daily Note ---
PT Daily Note-Current Subjective Patient in bed pre tx, agrees to PT, has no complaints of pain but is still ill and nauseated. Will be co-treating with OT due to poor patient mobility, strength, endurance, severe debility, coordinate UE and LE during activity, safety and reduce risk of falls. Appearance Patient in bed post tx with nurse call, phone, tray, all needs met, patient requests emesis basin. Mental Status Patient Orientation: Person, Unable to Assess cervical collar Transfers SCALE: Activities may be completed with or without assistive devices. 8-Wlyrrvtiqw-wswwlpu completes the activity by him/herself with no assistance from a helper. 5-Set-up or Clean-up Assistance-helper sets up or cleans up; patient completes activity. [place] assists only prior to or following the activity. 4-Supervision or Touching Assistance-helper provides verbal cues and/or touching/steadying and/or contact guard assistance as patient completes activity. Assistance may be provided throughout the activity or intermittently. 3-Partial/Moderate Assistance-helper does LESS THAN HALF the effort. [place] lifts, holds or supports trunk or limbs, but provides less than half the effort. 2-Substantial/Maximal Assistance-helper does MORE THAN HALF the effort. [place] lifts or holds trunk or limbs and provides more than half the effort. 7-Ntrdkcqcq-sjnfyx does ALL the effort. Patient does none of the effort to complete the activity. Or, the assistance of 2 or more helpers is required for the patient to complete the activity. If activity was not attempted, code reason: 7-Patient Refused. 9-Not Applicable-not attempted and the patient did not perform the activity before the current illness, exacerbation or injury. 10-Not Attempted due to Environmental Limitations-(lack of equipment, weather restraints, etc.). 88-Not Attempted due to Medical Conditions or Safety Concerns. Patient has to roll from side to side for cleaning bottom, removing brief, and cleaning back. Patient then rolls to back and performs bathing and dressing. Patient has to roll a couple times to each side for this and needs min assist to roll to each side. Patient is nauseated during this but doesn't vomit. He feels very warm to the touch. Treatments PT performs rolling, positioning, assist with bathing/cleaning, OT performed bathing, cleaning, dressing. Assessment Current Status: Poor Progress patient still ill this afternoon PT Short Term Goals Short Term Goals Time Frame: Sep 08, 2021 Roll Left & Right: 4 Sit to lyin Lying to sitting on side of be: 3 Sit to stand: 2 Chair/sfm-hw-xuxyl transfer: 2 PT Custodial Goals Public Area Attendant Goals PT Public Area Attendant Goals Time Frame: Sep 22, 2021 Roll Left & Right (QC): 4 Sit to Lying (QC): 4 Lying-Sitting on Side/Bed(QC): 4 Sit to Stand (QC): 3 Chair/Lmy-ll-Wjoiy Xfer(QC): 3 Toilet Transfer (QC): 3 Car Transfer (QC): 3 Does the Patient Walk: No and Walking Goal NOT indicated Walk 10 feet (QC): 88 Walk 50ft with 2 Turns (QC): 88 Walk 150 ft (QC): 88 Walking 10ft on Uneven Surface: 88 1 Step (curb) (QC): 88 4 Steps (QC): 88 12 Steps (QC): 88 Picking up an Object (QC): 3 Does the Pt use WC or Scooter?: Yes Wheel 50 feet with 2 turns (QC: 3 Type: Manual Wheel 150 feet: 3 Type: Manual PT Plan Problem List Problem List: Activity Tolerance, Functional Strength, Safety, Balance, Gait, Transfer, Bed Mobility, ROM Treatment/Plan Treatment Plan: Continue Plan of Care Treatment Plan: Bed Mobility, Education, Functional Activity Sara, Functional Strength, Group Therapy, Safety, Therapeutic Exercise, Transfers Treatment Duration: Sep 13, 2021 Frequency: At least 5 of 7 days/Wk (IRF) Estimated Hrs Per Day: 1.5 hours per day Patient and/or Family Agrees t: Yes Safety Risks/Education Patient Education: Correct Positioning, Safety Issues Teaching Recipient: Patient Teaching Methods: Demonstration, Discussion Response to Teaching: Reinforcement Needed Time/GCodes Time In: 1330 Time Out: 1400 Total Billed Treatment Time: 30 Total Billed Treatment 1 visit FA 30' VERONICA MONIQUE PT Sep 14, 2021 13:56
--- NOTE | 2021-09-14 14:03 | Occupational Ther Daily Note ---
OT Current Status-Daily Note Subjective Pt sleeping in bed, woke easily to name. Pt continues to c/o n/v. Pt is chilling. Agrees to therapy, no OOB tasks completed due to medical status. OT/PT co-treat due to pt's decreased activity tolerance, decreased functional mobility and pt's n/v with chilling. PT focusing on bed mobility and OT focusing on ADLs. Mental Status/Objective Patient Orientation: Person, Place, Time, Situation Attachments: Tyson Catheter, IV ADL-Treatment Due to medical issues, pt required increased assistance with bed bath. Pt assisted with rolling side to side. After therapy, pt lying in bed with call light/phone in reach. Nrsg aware of pt's status. All needs met. Therapy Code Descriptions/Definitions Functional [place] Measure: 0=Not Assessed/NA 4=Minimal Assistance 1=Total Assistance 5=Supervision or Setup 2=Maximal Assistance 6=Modified [place] 3=Moderate Assistance 7=Complete IndependenceSCALE: Activities may be completed with or without assistive devices. 5-Dhfuidjwof-smwcvob completes the activity by him/herself with no assistance from a helper. 5-Set-up or Clean-up Assistance-helper sets up or cleans up; patient completes activity. [place] assists only prior to or following the activity. 4-Supervision or Touching Assistance-helper provides verbal cues and/or touching/steadying and/or contact guard assistance as patient completes activity. Assistance may be provided throughout the activity or intermittently. 3-Partial/Moderate Assistance-helper does LESS THAN HALF the effort. [place] lifts, holds or supports trunk or limbs, but provides less than half the effort. 2-Substantial/Maximal Assistance-helper does MORE THAN HALF the effort. [place] lifts or holds trunk or limbs and provides more than half the effort. 3-Uawjvluxf-rdcfmc does ALL the effort. Patient does none of the effort to complete the activity. Or, the assistance of 2 or more helpers is required for the patient to complete the activity. If activity was not attempted, code reason: 7-Patient Refused. 9-Not Applicable-not attempted and the patient did not perform the activity before the current illness, exacerbation or injury. 10-Not Attempted due to Environmental Limitations-(lack of equipment, weather restraints, etc.). 88-Not Attempted due to Medical Conditions or Safety Concerns. OT Short Term Goals Short Term Goals Time Frame: Sep 22, 2021 Toileting hygiene: 2 Shower/bathe self: 2 Upper body dressin Lower body dressin Putting on/taking off footwear: 3 OT Machine Feeder Goals Machine Feeder Goals Time Frame: Oct 01, 2021 Eating (QC): 5 Oral Hygiene (QC): 6 Toileting Hygiene (QC): 4 Shower/Bathe Self (QC): 4 Upper Body Dressing (QC): 5 Lower Body Dressing (QC): 4 On/Off Footwear (QC): 4 Additional Goals: 1-Demonstrate ADL Tasks, 2-Verbalize Understanding, 3- ImproveStrength/Sara 1=Demonstrate adherence to instructed precautions during ADL tasks. 2=Patient will verbalize/demonstrate understanding of assistive devices/modifica tions for ADL. 3=Patient will improve strength/tolerance for activity to enable patient to perform ADL's. OT Education/Plan Problem List/Assessment Assessment: Decreased Activ Tolerance, Decreased UE Strength, Impaired Coordination, Impaired Self-Care Skills, Restricted Funct UE ROM Discharge Recommendations Plan/Recommendations: Continue POC Treatment Plan/Plan of Care Patient would benefit from OT for education, treatment and training to promote independence in ADL's, mobility, safety and/or upper extremity function for ADL's. Plan of Care: ADL Retraining, Functional Mobility, Group Exercise/Act as Ind, UE Funct Exercise/Act, UE Neuromus Re-Ed/Coord Treatment Duration: Oct 01, 2021 Frequency: At least 5 of 7 days/Wk (IRF) Estimated Hrs Per Day: 1.5 hours per day Agreement: Yes Rehab Potential: Fair Time/GCodes Start Time: 13:30 Stop Time: 14:00 Total Time Billed (hr/min): 30 Billed Treatment Time 1 visit-ADL 2 (30 min) LEO ZHU Sep 14, 2021 14:03
[2021-09-14] MEDS: TAMSULOSIN 0.4 MG (FLOMAX) CAP PO SCH (17:17)
[2021-09-14] MEDS: ACETAMINOPHEN 325 MG TABLET PO PRN (18:18)
[2021-09-14] MEDS: ONDANSETRON 4 MG/2 ML (SDV) Z0FRAN IVP PRN (19:02)
[2021-09-14 19:24] VITALS: BP 112/65
[2021-09-14] MEDS ORDERED: IBUPROFEN TABLET 200 MG TAB PO PRN (21:00)
[2021-09-14] MEDS: ROSUVASTATIN 20 MG (CRESTOR) TABLET PO SCH (22:28)
[2021-09-14] MEDS ORDERED: VANCOMYCIN 1 GM/NS 250 ML IVPB IV SCH ×2 (23:00)
[2021-09-15] MEDS: ONDANSETRON 4 MG/2 ML (SDV) Z0FRAN IVP PRN ×2 (02:21→08:13)
--- NOTE | 2021-09-15 05:40 | PM&R Progress Note ---
Subjective HPI/CC On Admission Date Seen by Provider: Sep 15, 2021 Time Seen by Provider: 09:00 Subjective/Events-last exam 09/15/2021: Patient doing better Fever defervesced Aguilar back in White count improved Pseudomonas UTI maintain on cefepime and DC vancomycin Will have family come in for training 09/14/2021: Pt is not feeling well today Fever noted Had to put aguilar back in last night Suspect UTI Chest x-ray will be obtained [place] [address] Gaston regarding the consultation Cefepime and Vanc will be initiated to cover for pseudomonas and or enterococcus Zofran and IV fluid initiated 09/13/21: Pt is doing pretty well Will attempt to discontinue the catheter today. If he has retention it could be from the spinal cord injury and could very well require it to be indwelling. Labs reviewed Blood sugar is elevated from drinking orange juice all day 09/12/2021: Patient continues to improve No pain is reported Reviewed blood sugars Blood pressure stable 09/11/2021: Patient dramatically improved Loose stools still remain Patient denies pain Moving hands and feet very well 09/10/21: Patient doing remarkably well Gaining function with hands and feet Loose BM's Blood sugars 272 Checked meds and labs 09/09/2021: Patient doing well No pain is reported Blood sugars reviewed Blood pressure reviewed Able to feed himself 09/08/2021: Pt is doing well Eating well Able to feed himself with his right hand Loose stools will be given Imodium 09/07/2021: Pt is doing well Blood sugar is 127 Bowels are loose Coccyx has a decubitus ulcer and we will monitor that closely 09/06/2021: Pt is doing a lot better Hemoglobin was 10.2 Has a decubitus ulcer on his coccyx Low bp so holding Norvasc Pilar lift is being used 09/05/2021: Patient doing really well Requiring Pilar lift though Lovenox started today Blood sugars are variable 09/04/2021: Patient doing very well Requiring Pilar lift since he cannot use the sit to stand at this current time Moving his arms and hands better Blood sugar is a little bit elevated Blood pressure better Lovenox will be started tomorrow 09/03/2021: Pt is doing well Took a shower but then he couldn't really get back in bed Had some emesis so we'll start Protonix 40 mg BID and Carafate Aguilar cath remains due to retention 09/02/2021: Pt settling in well Holding all insulin due to hypoglycemia Had emesis last night Fed himself a bit today Keeping aguilar in for retention Review of Systems General: Fatigue, Malaise Neurological: Weakness, Incoordination Focused Exam Lactate Level 09/14/21 09:15: Lactic Acid Level 0.68 Objective Exam Vital Signs Vital Signs Date Time Temp Pulse Resp B/P (MAP) Pulse Ox O2 Delivery O2 Flow Rate FiO2 09/15/21 20:14 36.6 83 18 128/73 (91) 96 Room Air Capillary Refill : General Appearance: No Apparent Distress, WD/WN, Chronically ill, Obese HEENT: PERRL/EOMI, Normal ENT Inspection, Pharynx Normal Neck: Full Range of Motion, Normal Inspection, Non Tender, Supple, Carotid Bruit Respiratory: Chest Non Tender, Lungs Clear, Normal Breath Sounds, No Accessory Muscle Use, No Respiratory Distress Cardiovascular: Regular Rate, Rhythm, No Edema, No Gallop, No JVD, No Murmur, Normal Peripheral Pulses Gastrointestinal: Normal Bowel Sounds, No Organomegaly, No Pulsatile Mass, Non Tender, Soft Back: Normal Inspection, No CVA Tenderness, No Vertebral Tenderness, Decreased Range of Motion Extremity: Normal Capillary Refill, Normal Inspection, Normal Range of Motion, Non Tender, No Calf Tenderness, No Pedal Edema Neurologic/Psychiatric: Alert, Oriented x3, Normal Mood/Affect, Abnormal Gait, Motor Weakness Skin: Normal Color, Warm/Dry Lymphatic: No Adenopathy Results/Procedures Lab Laboratory Tests 09/15/21 05:10 Patient resulted labs reviewed. FIM Transfers Therapy Code Descriptions/Definitions Functional [place] Measure: 0=Not Assessed/NA 4=Minimal Assistance 1=Total Assistance 5=Supervision or Setup 2=Maximal Assistance 6=Modified [place] 3=Moderate Assistance 7=Complete IndependenceSCALE: Activities may be completed with or without assistive devices. 9-Jfhdujcaoy-fjkmoyr completes the activity by him/herself with no assistance from a helper. 5-Set-up or Clean-up Assistance-helper sets up or cleans up; patient completes activity. [place] assists only prior to or following the activity. 4-Supervision or Touching Assistance-helper provides verbal cues and/or touching/steadying and/or contact guard assistance as patient completes activity. Assistance may be provided throughout the activity or intermittently. 3-Partial/Moderate Assistance-helper does LESS THAN HALF the effort. [place] lift s, holds or supports trunk or limbs, but provides less than half the effort. 2-Substantial/Maximal Assistance-helper does MORE THAN HALF the effort. [place] lifts or holds trunk or limbs and provides more than half the effort. 5-Mjobbizde-srrnef does ALL the effort. Patient does none of the effort to complete the activity. Or, the assistance of 2 or more helpers is required for the patient to complete the activity. If activity was not attempted, code reason: 7-Patient Refused. 9-Not Applicable-not attempted and the patient did not perform the activity before the current illness, exacerbation or injury. 10-Not Attempted due to Environmental Limitations-(lack of equipment, weather restraints, etc.). 88-Not Attempted due to Medical Conditions or Safety Concerns. Roll Left to Right (QC): 3 Sit to Lying (QC): 1 Sit to Stand (QC): 2 Chair/Tzb-pd-Amyph Xfer(QC): 2 Car Transfer (QC): 88 Gait Training Does the Patient Walk?: No and Walking Goal NOT indicated Distance: 5'x3 Walk 10 feet (QC): 88 Walk 50 ft with 2 Turns(QC): 88 Walk 150 ft (QC): 88 Walking 10ft/uneven surface-QC: 88 Gait Persons Needed: 1 Gait Assistive Device: Parallel Bars Wheelchair Training Does the Pt Use a Wheelchair?: Yes Wheel 50 ft with 2 turns (QC): 3 Wheel 150 ft (QC): 3 Type of Wheelchair: Manual Stair Training 1 Step (curb) (QC): 88 4 Steps (QC): 88 12 Steps (QC): 88 Balance Picking up an Object (QC): 88 ADL-Treatment Eating (QC): 5 Oral Hygiene (QC): 4 Shower/Bathe Self (QC): 3 Upper Body Dressing (QC): 2 Lower Body Dressing (QC): 1 On/Off Footwear (QC): 2 Toileting Hygiene (QC): 1 Toilet Transfer (QC): 1 Assessment/Plan Assessment and Plan Assess & Plan/Chief Complaint Assessment: 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 Diabetes [id number] Hypertension Hyperlipidemia Previous CVA with right-sided weakness Coccyx decubitus ulcers Pseudomonas UTI Plan: Aggressive therapy Pain control Monitor bowel function Insulin 09/02/2021: Supportive care Aggressive therapy Hold insulin 09/03/2021: Supportive care Cervical spine collar Aguilar catheter 09/04/2021: Supportive care Cervical spine collar Aguilar catheter Pilar lift We'll start Lovenox tomorrow 09/05/2021: Supportive care Lovenox Maintain Aguilar 09/06/2021: Maintain Aguilar Continues to be Pilar lift 09/07/2021: Coccyx decubitus ulcer management 09/08/2021: Imodium for loose stools Continue to progress 09/09/2021: Imodium for loose stools Supportive care 09/10/2021: Supportive care Dramatic improvement 09/11/2021: Supportive care We will attempt to DC Aguilar catheter this week 09/12/2021: Attempt to DC Aguilar catheter Supportive care 09/13/21: Voiding trial Monitor sugar 09/14/2021: Empiric antibiotics Urology consultation 09/15/2021: DC vancomycin Maintain cefepime (1) Cervical spine syndrome (2) Myoclonus (3) Type 2 diabetes mellitus without complication (4) Primary hypertension (5) Mixed hyperlipidemia (6) History of CVA with residual deficit (7) Right sided weakness (8) Cervical cord myelomalacia (9) Spinal cord contusion (10) Fall Status: Acute SHAYNE JAMES DO Sep 15, 2021 05:40
[2021-09-15 05:42] LABS: BASOPHILS % (AUTO) 0 % (0-10); EOSINOPHILS # (AUTO) 0.1 10^3/uL (0.0-0.3); EOSINOPHILS % (AUTO) 1 % (0-10); HEMATOCRIT 27 % (40-54); HEMOGLOBIN 9.2 g/dL (13.3-17.7); LYMPHOCYTES # (AUTO) 1.3 10^3/uL (1.0-4.0); LYMPHOCYTES % (AUTO) 8 % (12-44); MEAN CORPUSCULAR HEMOGLOBIN 29 pg (25-34); MEAN CORPUSCULAR HGB CONC 34 g/dL (32-36); MEAN CORPUSCULAR VOLUME 87 fL (80-99); MEAN PLATELET VOLUME 9.8 fL (9.0-12.2); MONOCYTES % (AUTO) 6 % (0-12); NEUTROPHILS # (AUTO) 13.2 10^3/uL (1.8-7.8); NEUTROPHILS % (AUTO) 83 % (42-75); PLATELET COUNT 143 10^3/uL (130-400); WHITE BLOOD COUNT 15.9 10^3/uL (4.3-11.0)
[2021-09-15 06:11] LABS: ALBUMIN 2.6 GM/DL (3.2-4.5); POTASSIUM 4.1 MMOL/L (3.6-5.0)
[2021-09-15 06:12] LABS: CALCIUM 8.2 MG/DL (8.5-10.1)
[2021-09-15 06:15] LABS: BILIRUBIN,TOTAL 0.6 MG/DL (0.1-1.0)
[2021-09-15 06:17] LABS: CREATININE SERUM 1.26 MG/DL (0.60-1.30)
[2021-09-15] MEDS: inSUlin ASPART (NovoLOG) 1 UNIT/0.01 ML (CHARGE PER UNIT) SC SCH ×4 (06:37→21:03)
[2021-09-15] MEDS: SUCRALFATE 1 GM (CARAFATE) TAB PO SCH ×4 (06:47→21:03)
[2021-09-15] MEDS: BETHANECHOL 25 MG (URECHOLINE) TAB PO SCH ×4 (06:47→21:03)
[2021-09-15] MEDS: CEFEPIME INJECTION 1,000 MG in NS (IVPB) 50 ML IV SCH ×4 (06:47→21:02)
[2021-09-15 07:24] VITALS: BP 119/56
[2021-09-15] MEDS: polyethylene glycoL POWDER 17 GM (MIRALAX) PACK PO SCH ×2 (08:08→20:06)
[2021-09-15] MEDS: DOCUSATE SODIUM 100 MG (COLACE) CAP PO SCH ×2 (08:08→20:06)
[2021-09-15] MEDS: SENNA W/DOCUSATE (SENOKOT S) TABLET PO SCH ×2 (08:09→20:06)
[2021-09-15] MEDS: PANTOPRAZOLE 40 MG (PROTONIX) TAB PO SCH ×2 (08:11→21:03)
[2021-09-15] MEDS: amLODIPine 5 MG (NORVASC) TAB PO SCH (08:11)
[2021-09-15] MEDS: meTOprolol TARTRATE 25 MG (LOPRESSOR) TABLET PO SCH ×2 (08:11→21:03)
[2021-09-15] MEDS: ENOXAPARIN 40 MG/0.4 ML (LOVENOX) SYR SC SCH (08:13)
--- NOTE | 2021-09-15 09:01 | Occupational Ther Daily Note ---
OT Current Status-Daily Note Subjective Pt reports he through up ~2-3 hours prior to OT arrival. Agreeable to treatment. Co-treat with PT for part of session secondary to needing 2 skilled clinicians to progress indep with mobility and adls. Appearance Pt left sitting in recliner, all needs within reach. Mental Status/Objective Attachments: Tyson Catheter, IV ADL-Treatment Therapy Code Descriptions/Definitions Functional [place] Measure: 0=Not Assessed/NA 4=Minimal Assistance 1=Total Assistance 5=Supervision or Setup 2=Maximal Assistance 6=Modified [place] 3=Moderate Assistance 7=Complete IndependenceSCALE: Activities may be completed with or without assistive devices. 5-Elodxijbvl-pxystxc completes the activity by him/herself with no assistance from a helper. 5-Set-up or Clean-up Assistance-helper sets up or cleans up; patient completes activity. [place] assists only prior to or following the activity. 4-Supervision or Touching Assistance-helper provides verbal cues and/or touching/steadying and/or contact guard assistance as patient completes act ivity. Assistance may be provided throughout the activity or intermittently. 3-Partial/Moderate Assistance-helper does LESS THAN HALF the effort. [place] lifts, holds or supports trunk or limbs, but provides less than half the effort. 2-Substantial/Maximal Assistance-helper does MORE THAN HALF the effort. [place] lifts or holds trunk or limbs and provides more than half the effort. 4-Hiqeurtve-zlgdri does ALL the effort. Patient does none of the effort to complete the activity. Or, the assistance of 2 or more helpers is required for the patient to complete the activity. If activity was not attempted, code reason: 7-Patient Refused. 9-Not Applicable-not attempted and the patient did not perform the activity before the current illness, exacerbation or injury. 10-Not Attempted due to Environmental Limitations-(lack of equipment, weather restraints, etc.). 88-Not Attempted due to Medical Conditions or Safety Concerns. Oral Hygiene (QC): 4 Shower/Bathe Self (QC): 1 Lower Body Dressing (QC): 1 On/Off Footwear: 2 Toileting Hygiene (QC): 1 Toilet Transfer (QC): 1 Supine>sit: min A to elevate torso. Improved sitting balance notable this date, only needing intermittent min a during dynamic seated tasks. Sponge bath performed seated EOB. Assist to lift and cross BLE's, intermittent assist to maintain figure 4 position as pt washed LE's and threaded feet into brief. After good attempt from patient, Assist for thoroughness only when washing under bilateral arms and below knees. He stood with assist x2 in order to wash buttocks. Pt with increased extensor tone causing retropulsion when standing. Dependent to manage brief over hips. New gown donned. Mod a to don socks in cross over method with extra time. Reminder cues on positioning and using finger as a hook to slide sock over heel. Oral care completed seated EOB. Great improvement in set up, extra time to perform bilateral tasks but no assist required. Assist only in positioning hand for correct grasp when holding toothbrush. Other Treatment Pt transferred to/from bed>chair with max a x2. At least 2 people needed for all transfers secondary to increased extensor tone and unpredictable knee buckling. OT instructed pt on AROM/AAROM exercises he can perform outside of therapy time to improve and maintain strength/ROM in BUE's. Education OT Patient Education: Correct positioning, Energy conservation, Exercise program, Modified ADL techniques, Progress toward Goal/Update tx plan, Purpose of tx/functional activities, Rehab process, Safety issues, Transfer techniques Teaching Recipient: Patient Teaching Methods: Demonstration, Discussion Response to Teaching: Return Demonstration, Reinforcement Needed OT Short Term Goals Short Term Goals Time Frame: Sep 22, 2021 Toileting hygiene: 2 Shower/bathe self: 2 Upper body dressin Lower body dressin Putting on/taking off footwear: 3 OT Care Home Goals Networking Engineer Goals Time Frame: Oct 01, 2021 Eating (QC): 5 Oral Hygiene (QC): 6 Toileting Hygiene (QC): 4 Shower/Bathe Self (QC): 4 Upper Body Dressing (QC): 5 Lower Body Dressing (QC): 4 On/Off Footwear (QC): 4 Additional Goals: 1-Demonstrate ADL Tasks, 2-Verbalize Understanding, 3- ImproveStrength/Sara 1=Demonstrate adherence to instructed precautions during ADL tasks. 2=Patient will verbalize/demonstrate understanding of assistive devices /modifications for ADL. 3=Patient will improve strength/tolerance for activity to enable patient to perform ADL's. OT Education/Plan Problem List/Assessment Assessment: Decreased Activ Tolerance, Decreased Safety Aware, Decreased UE Strength, Dependent Transfers, Impaired Coordination, Impaired Funct Balance, Impaired I ADL's, Impaired Self-Care Skills, Restricted Funct UE ROM Discharge Recommendations Plan/Recommendations: Continue POC Treatment Plan/Plan of Care Treatment,Training & Education: Yes Patient would benefit from OT for education, treatment and training to promote independence in ADL's, mobility, safety and/or upper extremity function for ADL's. Plan of Care: ADL Retraining, Functional Mobility, Group Exercise/Act as Ind, UE Funct Exercise/Act, UE Neuromus Re-Ed/Coord Treatment Duration: Oct 01, 2021 Frequency: At least 5 of 7 days/Wk (IRF) Estimated Hrs Per Day: 1.5 hours per day Agreement: Yes Rehab Potential: Fair Time/GCodes Start Time: 07:42 Stop Time: 09:00 Total Time Billed (hr/min): 78 Billed Treatment Time 1 visit ADL x3 (50 min) EX (10 min) FA (18 min) Nisreen Lowe OT Sep 15, 2021 09:01
--- NOTE | 2021-09-15 10:04 | Physical Therapy Daily Note ---
PT Daily Note-Current Subjective Pt. sitting EOB with OT already present in room. Co Rx PT OT secondary to level of debility and weakness. Pt. requires 2 skilled clinicians for coordination of functional movement for sitting, TRFs, funct mob etc. Pt. c/o this date of some upset in his stomach. Pain Location: No Pain Reported Appearance pt. feels warm to touch , temp taken at 97.3 F Mental Status Patient Orientation: Normal For Age Attachments: Tyson Catheter Transfers SCALE: Activities may be completed with or without assistive devices. 8-Zjugcifbhb-msqlagw completes the activity by him/herself with no assistance from a helper. 5-Set-up or Clean-up Assistance-helper sets up or cleans up; patient completes activity. [place] assists only prior to or following the activity. 4-Supervision or Touching Assistance-helper provides verbal cues and/or touching/steadying and/or contact guard assistance as patient completes activity. Assistance may be provided throughout the activity or intermittently. 3-Partial/Moderate Assistance-helper does LESS THAN HALF the effort. [place] lifts, holds or supports trunk or limbs, but provides less than half the effort. 2-Substantial/Maximal Assistance-helper does MORE THAN HALF the effort. [place] lifts or holds trunk or limbs and provides more than half the effort. 5-Mxpbhhcjk-ofvgdc does ALL the effort. Patient does none of the effort to complete the activity. Or, the assistance of 2 or more helpers is required for the patient to complete the activity. If activity was not attempted, code reason: 7-Patient Refused. 9-Not Applicable-not attempted and the patient did not perform the activity before the current illness, exacerbation or injury. 10-Not Attempted due to Environmental Limitations-(lack of equipment, weather restraints, etc.). 88-Not Attempted due to Medical Conditions or Safety Concerns. Sit to Stand (QC): 2 Chair/Kis-zd-Dnejk Xfer(QC): 2 pt. with extensor tone noted with sit to stand x 2-3 attempts max to mod assist of 2 for dressing and bathing as well as SPT bed to recliner, therapists coordinating stability at knees as well as trunk for safe TRF instructing pt. in use of his hands and position of his trunk Gait Training SPT only with no real purposeful steps taken Exercises Supine Ex: Quad Set, Glut sets, Hip abd/add Supine Reps: 15 Seated Therapy Exercises: Biceps, Ankle pumps, Sit to stand, Shoulder Flex, Long arc quads, Hip flexion, Hip abd/add Seated Reps: 15 Treatments pt. sat EOB with CGA to min for balance for sponge bathing with balance challenges as pt. lifted lower leg over opposite leg to reach and bathe, CGA only needed t maintain balance. bathing and dressing with donning of socks with assistance was completed with OT guiding. LE therex in seated and supine/reclined position were completed. Ayoub and all other needs met as pt. was p in recliner, pt. also pushed self up in the recliner with cuing and head of chair lowered. Assessment Current Status: Good Progress pt. has made progress in all phases of Rx since last seen by this PROGRAM REP. PT Short Term Goals Short Term Goals Time Frame: Sep 08, 2021 Roll Left & Right: 4 Sit to lyin Lying to sitting on side of be: 3 Sit to stand: 2 Chair/viz-rn-hihyg transfer: 2 PT Local Announcer Goals Custodial Goals PT Local Announcer Goals Time Frame: Sep 22, 2021 Roll Left & Right (QC): 4 Sit to Lying (QC): 4 Lying-Sitting on Side/Bed(QC): 4 Sit to Stand (QC): 3 Chair/Pgt-ud-Jhpqy Xfer(QC): 3 Toilet Transfer (QC): 3 Car Transfer (QC): 3 Does the Patient Walk: No and Walking Goal NOT indicated Walk 10 feet (QC): 88 Walk 50ft with 2 Turns (QC): 88 Walk 150 ft (QC): 88 Walking 10ft on Uneven Surface: 88 1 Step (curb) (QC): 88 4 Steps (QC): 88 12 Steps (QC): 88 Picking up an Object (QC): 3 Does the Pt use WC or Scooter?: Yes Wheel 50 feet with 2 turns (QC: 3 Type: Manual Wheel 150 feet: 3 Type: Manual PT Plan Treatment/Plan Treatment Plan: Continue Plan of Care Treatment Plan: Bed Mobility, Education, Functional Activity Sara, Functional Strength, Group Therapy, Safety, Therapeutic Exercise, Transfers Treatment Duration: Sep 13, 2021 Frequency: At least 5 of 7 days/Wk (IRF) Estimated Hrs Per Day: 1.5 hours per day Patient and/or Family Agrees t: Yes Safety Risks/Education Patient Education: Transfer Techniques, Correct Positioning, Disease Process, Safety Issues Teaching Recipient: Patient Teaching Methods: Demonstration, Discussion Response to Teaching: Verbalize Understanding, Return Demonstration, Reinforcement Needed Time/GCodes Time In: 800 Time Out: 900 Total Billed Treatment Time: 60 Total Billed Treatment 1,FA45m,EX15m (60 m co Rx) LILIAN HARRISON PTA Sep 15, 2021 10:04
--- NOTE | 2021-09-15 10:14 | Occupational Ther Daily Note ---
OT Current Status-Daily Note Subjective Agreeable to treatment Appearance Left sitting in recliner, all needs within reach ADL-Treatment Therapy Code Descriptions/Definitions Functional [place] Measure: 0=Not Assessed/NA 4=Minimal Assistance 1=Total Assistance 5=Supervision or Setup 2=Maximal Assistance 6=Modified [place] 3=Moderate Assistance 7=Complete IndependenceSCALE: Activities may be completed with or without assistive devices. 9-Hkakkoqevy-qwvhhjv completes the activity by him/herself with no assistance from a helper. 5-Set-up or Clean-up Assistance-helper sets up or cleans up; patient completes activity. [place] assists only prior to or following the activity. 4-Supervision or Touching Assistance-helper provides verbal cues and/or touching/steadying and/or contact guard assistance as patient completes activity. Assistance may be provided throughout the activity or intermittently. 3-Partial/Moderate Assistance-helper does LESS THAN HALF the effort. [place] lifts, holds or supports trunk or limbs, but provides less than half the effort. 2-Substantial/Maximal Assistance-helper does MORE THAN HALF the effort. [place] lifts or holds trunk or limbs and provides more than half the effort. 9-Iyokzavsf-zxmith does ALL the effort. Patient does none of the effort to complete the activity. Or, the assistance of 2 or more helpers is required for the patient to complete the activity. If activity was not attempted, code reason: 7-Patient Refused. 9-Not Applicable-not attempted and the patient did not perform the activity before the current illness, exacerbation or injury. 10-Not Attempted due to Environmental Limitations-(lack of equipment, weather restraints, etc.). 88-Not Attempted due to Medical Conditions or Safety Concerns. Other Treatment Dynamometer and pinch test administered. R telemarketer: 12 lbs (Average: 116.8) L telemarketer: 3 lbs (Average: 112.8) R tip pinch: 6 lbs, 3-jaw marielle: 12 lbs L tip pinch: 0 lbs, 3-jaw marielle: 3 lbs Pt participated in fine motor activity (flipping cards) with goal to increase reps in pinch, dexterity, Hand/UE use, functional reaching and FM skills. Good use of compensatory method to slide card to end of table in order to get thumb underneath. Pt flipped 10 cards in ~75 seconds Education OT Patient Education: Correct positioning, Energy conservation, Modified ADL techniques, Purpose of tx/functional activities Teaching Recipient: Patient Teaching Methods: Demonstration, Discussion Response to Teaching: Return Demonstration, Reinforcement Needed OT Short Term Goals Short Term Goals Time Frame: Sep 22, 2021 Toileting hygiene: 2 Shower/bathe self: 2 Upper body dressin Lower body dressin Putting on/taking off footwear: 3 OT Senior Care Goals Intelligence Operations Goals Time Frame: Oct 01, 2021 Eating (QC): 5 Oral Hygiene (QC): 6 Toileting Hygiene (QC): 4 Shower/Bathe Self (QC): 4 Upper Body Dressing (QC): 5 Lower Body Dressing (QC): 4 On/Off Footwear (QC): 4 Additional Goals: 1-Demonstrate ADL Tasks, 2-Verbalize Understanding, 3- ImproveStrength/Sara 1=Demonstrate adherence to instructed precautions during ADL tasks. 2=Patient will verbalize/demonstrate understanding of assistive devices/modifications for ADL. 3=Patient will improve strength/tolerance for activity to enable patient to perform ADL's. OT Education/Plan Problem List/Assessment Assessment: Decreased Activ Tolerance, Decreased Safety Aware, Decreased UE Strength, Dependent Transfers, Impaired Cognition, Impaired Coordination, Impaired Funct Balance, Impaired I ADL's, Impaired Self-Care Skills, Restricted Funct UE ROM Discharge Recommendations Plan/Recommendations: Continue POC Treatment Plan/Plan of Care Treatment,Training & Education: Yes Patient would benefit from OT for education, treatment and training to promote independence in ADL's, mobility, safety and/or upper extremity function for ADL's. Plan of Care: ADL Retraining, Functional Mobility, Group Exercise/Act as Ind, UE Funct Exercise/Act, UE Neuromus Re-Ed/Coord Treatment Duration: Oct 01, 2021 Frequency: At least 5 of 7 days/Wk (IRF) Estimated Hrs Per Day: 1.5 hours per day Agreement: Yes Rehab Potential: Fair Time/GCodes Start Time: 09:53 Stop Time: 10:09 Total Time Billed (hr/min): 16 Billed Treatment Time 1 visit Nisreen Del Cid OT Sep 15, 2021 10:14
--- NOTE | 2021-09-15 11:06 | Progress Note - Urology ---
Progress Note-Urology Progress Notes/Assess & Plan Progress/Assessment & Plan [facility] Final Diagnosis RETENTION VICKI DEL ROSARIO MD Sep 15, 2021 11:06
[2021-09-15] MEDS: NS IV 1000 ML 1,000 ML IV SCH ×2 (13:50→22:25)
[2021-09-15] MEDS: TAMSULOSIN 0.4 MG (FLOMAX) CAP PO SCH (17:08)
[2021-09-15 20:14] VITALS: BP 128/73
[2021-09-15] MEDS: HYDROCORTISONE 1% CREAM 30 GM TUBE TOP SCH (21:02)
[2021-09-15] MEDS: ROSUVASTATIN 20 MG (CRESTOR) TABLET PO SCH (21:03)
[2021-09-15] MEDS ORDERED: TROUGH ORDER-PHARMACY XX NR (22:00)
[2021-09-16] MEDS: CEFEPIME INJECTION 1,000 MG in NS (IVPB) 50 ML IV SCH ×4 (04:10→21:03)
[2021-09-16] MEDS: inSUlin ASPART (NovoLOG) 1 UNIT/0.01 ML (CHARGE PER UNIT) SC SCH ×4 (05:25→20:33)
[2021-09-16] MEDS: SUCRALFATE 1 GM (CARAFATE) TAB PO SCH ×4 (06:12→21:05)
[2021-09-16] MEDS: BETHANECHOL 25 MG (URECHOLINE) TAB PO SCH ×4 (06:12→21:05)
[2021-09-16 06:17] LABS: BASOPHILS % (AUTO) 0 % (0-10); EOSINOPHILS # (AUTO) 0.3 10^3/uL (0.0-0.3); EOSINOPHILS % (AUTO) 3 % (0-10); HEMATOCRIT 27 % (40-54); HEMOGLOBIN 9.1 g/dL (13.3-17.7); LYMPHOCYTES # (AUTO) 1.5 10^3/uL (1.0-4.0); LYMPHOCYTES % (AUTO) 15 % (12-44); MEAN CORPUSCULAR HEMOGLOBIN 30 pg (25-34); MEAN CORPUSCULAR HGB CONC 34 g/dL (32-36); MEAN CORPUSCULAR VOLUME 88 fL (80-99); MEAN PLATELET VOLUME 9.4 fL (9.0-12.2); MONOCYTES # (AUTO) 0.5 10^3/uL (0.0-1.0); MONOCYTES % (AUTO) 5 % (0-12); NEUTROPHILS # (AUTO) 7.8 10^3/uL (1.8-7.8); NEUTROPHILS % (AUTO) 77 % (42-75); PLATELET COUNT 135 10^3/uL (130-400); WHITE BLOOD COUNT 10.2 10^3/uL (4.3-11.0)
--- NOTE | 2021-09-16 06:18 | PM&R Progress Note ---
Subjective HPI/CC On Admission Date Seen by Provider: Sep 16, 2021 Time Seen by Provider: 12:00 Subjective/Events-last exam 09/16/2021: Patient doing really well Hep-Lock IV fluid Pseudomonas sensitivity not back yet Family training will be soon 09/15/2021: Patient doing better Fever defervesced Aguilar back in White count improved Pseudomonas UTI maintain on cefepime and DC vancomycin Will have family come in for training 09/14/2021: Pt is not feeling well today Fever noted Had to put aguilar back in last night Suspect UTI Chest x-ray will be obtained [place] [id number] Gaston regarding the consultation Cefepime and Vanc will be initiated to cover for pseudomonas and or enterococcus Zofran and IV fluid initiated 09/13/21: Pt is doing pretty well Will attempt to discontinue the catheter today. If he has retention it could be from the spinal cord injury and could very well require it to be indwelling. Labs reviewed Blood sugar is elevated from drinking orange juice all day 09/12/2021: Patient continues to improve No pain is reported Reviewed blood sugars Blood pressure stable 09/11/2021: Patient dramatically improved Loose stools still remain Patient denies pain Moving hands and feet very well 09/10/21: Patient doing remarkably well Gaining function with hands and feet Loose BM's Blood sugars 272 Checked meds and labs 09/09/2021: Patient doing well No pain is reported Blood sugars reviewed Blood pressure reviewed Able to feed himself 09/08/2021: Pt is doing well Eating well Able to feed himself with his right hand Loose stools will be given Imodium 09/07/2021: Pt is doing well Blood sugar is 127 Bowels are loose Coccyx has a decubitus ulcer and we will monitor that closely 09/06/2021: Pt is doing a lot better Hemoglobin was 10.2 Has a decubitus ulcer on his coccyx Low bp so holding Norvasc Pilar lift is being used 09/05/2021: Patient doing really well Requiring Pilar lift though Lovenox started today Blood sugars are variable 09/04/2021: Patient doing very well Requiring Pilar lift since he cannot use the sit to stand at this current time Moving his arms and hands better Blood sugar is a little bit elevated Blood pressure better Lovenox will be started tomorrow 09/03/2021: Pt is doing well Took a shower but then he couldn't really get back in bed Had some emesis so we'll start Protonix 40 mg BID and Carafate Aguilar cath remains due to retention 09/02/2021: Pt settling in well Holding all insulin due to hypoglycemia Had emesis last night Fed himself a bit today Keeping aguilar in for retention Review of Systems General: Fatigue, Malaise Neurological: Weakness, Incoordination Focused Exam Lactate Level 09/14/21 09:15: Lactic Acid Level 0.68 Objective Exam Vital Signs Vital Signs Date Time Temp Pulse Resp B/P (MAP) Pulse Ox O2 Delivery O2 Flow Rate FiO2 09/16/21 20:00 Room Air 09/16/21 19:44 36.8 75 16 130/69 (89) 99 Capillary Refill : General Appearance: No Apparent Distress, WD/WN, Chronically ill, Obese HEENT: PERRL/EOMI, Normal ENT Inspection, Pharynx Normal Neck: Full Range of Motion, Normal Inspection, Non Tender, Supple, Carotid Bruit Respiratory: Chest Non Tender, Lungs Clear, Normal Breath Sounds, No Accessory Muscle Use, No Respiratory Distress Cardiovascular: Regular Rate, Rhythm, No Edema, No Gallop, No JVD, No Murmur, Normal Peripheral Pulses Gastrointestinal: Normal Bowel Sounds, No Organomegaly, No Pulsatile Mass, Non Tender, Soft Back: Normal Inspection, No CVA Tenderness, No Vertebral Tenderness, Decreased Range of Motion Extremity: Normal Capillary Refill, Normal Inspection, Normal Range of Motion, Non Tender, No Calf Tenderness, No Pedal Edema Neurologic/Psychiatric: Alert, Oriented x3, Normal Mood/Affect, Abnormal Gait, Motor Weakness Skin: Normal Color, Warm/Dry Lymphatic: No Adenopathy Results/Procedures Lab Laboratory Tests 09/16/21 06:10 Patient resulted labs reviewed. FIM Transfers Therapy Code Descriptions/Definitions Functional [place] Measure: 0=Not Assessed/NA 4=Minimal Assistance 1=Total Assistance 5=Supervision or Setup 2=Maximal Assistance 6=Modified [place] 3=Moderate Assistance 7=Complete IndependenceSCALE: Activities may be completed with or without assistive devices. 1-Ujfyhzzahn-ouzmfdn completes the activity by him/herself with no assistance from a helper. 5-Set-up or Clean-up Assistance-helper sets up or cleans up; patient completes activity. [place] assists only prior to or following the activity. 4-Supervision or Touching Assistance-helper provides verbal cues and/or touching/steadying and/or contact guard assistance as patient completes activity. Assistance may be provided throughout the activity or intermittently. 3-Partial/Moderate Assistance-helper does LESS THAN HALF the effort. [place] lifts, holds or supports trunk or limbs, but provides less than half the effort. 2-Substantial/Maximal Assistance-helper does MORE THAN HALF the effort. [place] lifts or holds trunk or limbs and provides more than half the effort. 8-Azipabnnr-mlquzj does ALL the effort. Patient does none of the effort to complete the activity. Or, the assistance of 2 or more helpers is required for the patient to complete the activity. If activity was not attempted, code reason: 7-Patient Refused. 9-Not Applicable-not attempted and the patient did not perform the activity before the current illness, exacerbation or injury. 10-Not Attempted due to Environmental Limitations-(lack of equipment, weather restraints, etc.). 88-Not Attempted due to Medical Conditions or Safety Concerns. Roll Left to Right (QC): 3 Sit to Lying (QC): 1 Sit to Stand (QC): 2 Chair/Nvy-kz-Kxpri Xfer(QC): 2 Car Transfer (QC): 88 Gait Training Does the Patient Walk?: No and Walking Goal NOT indicated Distance: 5'x3 Walk 10 feet (QC): 88 Walk 50 ft with 2 Turns(QC): 88 Walk 150 ft (QC): 88 Walking 10ft/uneven surface-QC: 88 Gait Persons Needed: 1 Gait Assistive Device: Parallel Bars Wheelchair Training Does the Pt Use a Wheelchair?: Yes Wheel 50 ft with 2 turns (QC): 3 Wheel 150 ft (QC): 3 Type of Wheelchair: Manual Stair Training 1 Step (curb) (QC): 88 4 Steps (QC): 88 12 Steps (QC): 88 Balance Picking up an Object (QC): 88 ADL-Treatment Eating (QC): 5 Oral Hygiene (QC): 4 Shower/Bathe Self (QC): 1 Upper Body Dressing (QC): 2 Lower Body Dressing (QC): 1 On/Off Footwear (QC): 2 Toileting Hygiene (QC): 1 Toilet Transfer (QC): 1 Assessment/Plan Assessment and Plan Assess & Plan/Chief Complaint Assessment: 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 Diabetes hbv-xh-rumsqdd Hypertension Hyperlipidemia Previous CVA with right-sided weakness Coccyx decubitus ulcers Pseudomonas UTI Plan: Aggressive therapy Pain control Monitor bowel function Insulin 09/02/2021: Supportive care Aggressive therapy Hold insulin 09/03/2021: Supportive care Cervical spine collar Aguilar catheter 09/04/2021: Supportive care Cervical spine collar Aguilar catheter Pilar lift We'll start Lovenox tomorrow 09/05/2021: Supportive care Lovenox Maintain Aguilar 09/06/2021: Maintain Aguilar Continues to be Pilar lift 09/07/2021: Coccyx decubitus ulcer management 09/08/2021: Imodium for loose stools Continue to progress 09/09/2021: Imodium for loose stools Supportive care 09/10/2021: Supportive care Dramatic improvement 09/11/2021: Supportive care We will attempt to DC Aguilar catheter this week 09/12/2021: Attempt to DC Aguilar catheter Supportive care 09/13/21: Voiding trial Monitor sugar 09/14/2021: Empiric antibiotics Urology consultation 09/15/2021: DC vancomycin Maintain cefepime 09/16/2021: Maintain cefepime Supportive care Hep-Lock IV fluid (1) Cervical spine syndrome (2) Myoclonus (3) Type 2 diabetes mellitus without complication (4) Primary hypertension (5) Mixed hyperlipidemia (6) History of CVA with residual deficit (7) Right sided weakness (8) Cervical cord myelomalacia (9) Spinal cord contusion (10) Fall Status: Acute SHAYNE JAMES DO Sep 16, 2021 06:18
[2021-09-16 06:31] LABS: ALBUMIN 2.6 GM/DL (3.2-4.5); POTASSIUM 3.9 MMOL/L (3.6-5.0)
[2021-09-16 06:33] LABS: CALCIUM 8.3 MG/DL (8.5-10.1)
[2021-09-16 06:34] LABS: TOTAL PROTEIN 5.8 GM/DL (6.4-8.2)
[2021-09-16 06:36] LABS: BILIRUBIN,TOTAL 0.2 MG/DL (0.1-1.0)
[2021-09-16 06:37] LABS: CREATININE SERUM 1.01 MG/DL (0.60-1.30)
[2021-09-16 07:19] VITALS: BP 118/68
[2021-09-16] MEDS: NS IV 1000 ML 1,000 ML IV SCH (08:05)
--- NOTE | 2021-09-16 08:57 | Physical Therapy Daily Note ---
PT Daily Note-Current Subjective Patient sitting EOB pre tx, already working with OT, voices no complaints of pain, agrees to PT. Will be co-treating with OT due to poor patient mobility, strength, endurance, severe debility, coordinate UE and LE during activity, safety and reduce risk of falls. Appearance Patient in recliner post tx with nurse call, phone, tray, all needs met. Mental Status Patient Orientation: Person, Unable to Assess Attachments: Tyson Catheter cervical collar Transfers SCALE: Activities may be completed with or without assistive devices. 1-Kufpvsulza-hwyorbe completes the activity by him/herself with no assistance from a helper. 5-Set-up or Clean-up Assistance-helper sets up or cleans up; patient completes activity. [place] assists only prior to or following the activity. 4-Supervision or Touching Assistance-helper provides verbal cues and/or touching/steadying and/or contact guard assistance as patient completes activity. Assistance may be provided throughout the activity or intermittently. 3-Partial/Moderate Assistance-helper does LESS THAN HALF the effort. [place] lifts, holds or supports trunk or limbs, but provides less than half the effort. 2-Substantial/Maximal Assistance-helper does MORE THAN HALF the effort. [place] lifts or holds trunk or limbs and provides more than half the effort. 6-Wzvffxejk-xpxhry does ALL the effort. Patient does none of the effort to complete the activity. Or, the assistance of 2 or more helpers is required for the patient to complete the activity. If activity was not attempted, code reason: 7-Patient Refused. 9-Not Applicable-not attempted and the patient did not perform the activity before the current illness, exacerbation or injury. 10-Not Attempted due to Environmental Limitations-(lack of equipment, weather restraints, etc.). 88-Not Attempted due to Medical Conditions or Safety Concerns. Roll Left & Right (QC): 3 Lying to Sitting/Side of Bed(Q: 3 Sit to Stand (QC): 3 Chair/Rew-dy-Ekbbr Xfer(QC): 3 Patient stands from edge of bed to pull up briefs and it is discovered that he has had a BM. Patient lays down with mod assist and then has to roll from side to side a couple of times for cleaning and changing pad on bed. Patient rolls with min assist. Patient then sits to the side of the bed again with min assist, stands with mod assist and transfers to WC with mod assist. Gait Training Distance: 6'x3 Gait Persons Needed: 1 Gait Assistive Device: Parallel Bars max assist, less scissoring, patient needs careful guarding due to potential knee buckling Wheelchair Training Does the Pt Use a Wheelchair?: Yes Wheel 50 ft with 2 turns (QC): 3 Type of Wheelchair: Manual 100'x2 Exercises patient also stood in the parallel bars for 3.5 minutes Treatments PT performed bed mobility and transfers, ambulation, WC mobility, OT performed dressing, cleaning, UE positioning and safety during activity Assessment Current Status: Fair Progress slowly improving standing and ambulation in the parallel bars PT Short Term Goals Short Term Goals Time Frame: Sep 08, 2021 Roll Left & Right: 4 Sit to lyin Lying to sitting on side of be: 3 Sit to stand: 2 Chair/zad-sm-qnifs transfer: 2 PT Car Dispatcher Goals Mcfp Goals PT Mcfp Goals Time Frame: Sep 22, 2021 Roll Left & Right (QC): 4 Sit to Lying (QC): 4 Lying-Sitting on Side/Bed(QC): 4 Sit to Stand (QC): 3 Chair/Bgt-tt-Nbolu Xfer(QC): 3 Toilet Transfer (QC): 3 Car Transfer (QC): 3 Does the Patient Walk: No and Walking Goal NOT indicated Walk 10 feet (QC): 88 Walk 50ft with 2 Turns (QC): 88 Walk 150 ft (QC): 88 Walking 10ft on Uneven Surface: 88 1 Step (curb) (QC): 88 4 Steps (QC): 88 12 Steps (QC): 88 Picking up an Object (QC): 3 Does the Pt use WC or Scooter?: Yes Wheel 50 feet with 2 turns (QC: 3 Type: Manual Wheel 150 feet: 3 Type: Manual PT Plan Problem List Problem List: Activity Tolerance, Functional Strength, Safety, Balance, Gait, Transfer, Bed Mobility, ROM Treatment/Plan Treatment Plan: Continue Plan of Care Treatment Plan: Bed Mobility, Education, Functional Activity Sara, Functional Strength, Group Therapy, Safety, Therapeutic Exercise, Transfers Treatment Duration: Sep 13, 2021 Frequency: At least 5 of 7 days/Wk (IRF) Estimated Hrs Per Day: 1.5 hours per day Patient and/or Family Agrees t: Yes Safety Risks/Education Patient Education: Gait Training, Transfer Techniques, Correct Positioning, W/C Management, Safety Issues Teaching Recipient: Patient Teaching Methods: Demonstration, Discussion Response to Teaching: Reinforcement Needed Time/GCodes Time In: 0800 Time Out: 0900 Total Billed Treatment Time: 60 Total Billed Treatment 1 visit FA 60' co-treated for 60' VERONICA MONIQUE PT Sep 16, 2021 08:57
--- NOTE | 2021-09-16 09:00 | Occupational Ther Daily Note ---
OT Current Status-Daily Note Subjective Denies pain, agreeable to treatment. Co-treat with PT for part of session secondary to need of 2 skilled clinicians to progress indep with mobility and adls. OT to focus on adls, safety, UE use/positioning, posture and compensatory strategies to complete adls. Appearance Pt left sitting in recliner, all need within reach. Mental Status/Objective Attachments: IV ADL-Treatment Therapy Code Descriptions/Definitions Functional [place] Measure: 0=Not Assessed/NA 4=Minimal Assistance 1=Total Assistance 5=Supervision or Setup 2=Maximal Assistance 6=Modified [place] 3=Moderate Assistance 7=Complete IndependenceSCALE: Activities may be completed with or without assistive devices. 3-Mlprxlygxj-huhwsty completes the activity by him/herself with no assistance from a helper. 5-Set-up or Clean-up Assistance-helper sets up or cleans up; patient completes activity. [place] assists only prior to or following the activity. 4-Supervision or Touching Assistance-helper provides verbal cues and/or touching/steadying and/or contact guard assistance as patient completes activity. Assistance may be provided throughout the activity or intermittently. 3-Partial/Moderate Assistance-helper does LESS THAN HALF the effort. [place] lifts, holds or supports trunk or limbs, but provides less than half the effort. 2-Substantial/Maximal Assistance-helper does MORE THAN HALF the effort. [place] lifts or holds trunk or limbs and provides more than half the effort. 3-Ndxwakqlv-htwbjk does ALL the effort. Patient does none of the effort to compl ete the activity. Or, the assistance of 2 or more helpers is required for the patient to complete the activity. If activity was not attempted, code reason: 7-Patient Refused. 9-Not Applicable-not attempted and the patient did not perform the activity before the current illness, exacerbation or injury. 10-Not Attempted due to Environmental Limitations-(lack of equipment, weather restraints, etc.). 88-Not Attempted due to Medical Conditions or Safety Concerns. Eating (QC): 5 Oral Hygiene (QC): 4 Lower Body Dressing (QC): 2 On/Off Footwear: 3 Toileting Hygiene (QC): 1 Pt eating breakfast at OT arrival. Able to sit EOB with Min a to elevate torso. Oral care and face washing performed sitting EOB with supervision/set up. Improved sitting balance with static sitting. During dynamic task, pt requires intermittent min a and/or unilateral UE support on bed rail. While sitting, pt able to lift LE's slightly off floor this date but continues to need assist to bring foot fully over contralateral knee in order to don brief over feet (figure 4 position). Minimal assist to manage brief over heels this date. While PT was assisting for standing to complete clothing management, pt incontinent of bowels. He was returned to supine and latonya care performed at bed level while rolling R/L. Dependent for latonya care and clothing management. New gown donned. Other Treatment Pt participated in standing tasks while in parallel bars. OT assisted with upright posture and correct placement of BUE's. Pt able to take 6-7 steps x4 in parallel bars with max a, wheelchair follow behind. Improved speed of transitioning feet. Continues to need assist with correct placement of L foot as it has a tendency to adduct in towards R foot. Improved standing time this date to 3:30 with mod a for balance and min cues throughout for posture. Education OT Patient Education: Correct positioning, Modified ADL techniques, Progress toward Goal/Update tx plan, Purpose of tx/functional activities, Safety issues, Transfer techniques, W/C management Teaching Recipient: Patient Teaching Methods: Demonstration, Discussion Response to Teaching: Return Demonstration, Reinforcement Needed OT Short Term Goals Short Term Goals Time Frame: Sep 22, 2021 Toileting hygiene: 2 Shower/bathe self: 2 Upper body dressin Lower body dressin Putting on/taking off footwear: 3 OT Assisted Goals Assisted Goals Time Frame: Oct 01, 2021 Eating (QC): 5 Oral Hygiene (QC): 6 Toileting Hygiene (QC): 4 Shower/Bathe Self (QC): 4 Upper Body Dressing (QC): 5 Lower Body Dressing (QC): 4 On/Off Footwear (QC): 4 Additional Goals: 1-Demonstrate ADL Tasks, 2-Verbalize Understanding, 3- ImproveStrength/Sara 1=Demonstrate adherence to instructed precautions during ADL tasks. 2=Patient will verbalize/demonstrate understanding of assistive devices/modifications for ADL. 3=Patient will improve strength/tolerance for activity to enable patient to perform ADL's. OT Education/Plan Problem List/Assessment Assessment: Decreased Activ Tolerance, Decreased Safety Aware, Decreased UE Strength, Dependent Transfers, Impaired Coordination, Impaired Funct Balance, Impaired I ADL's, Impaired Self-Care Skills, Restricted Funct UE ROM Discharge Recommendations Plan/Recommendations: Continue POC Therapy Discharge Recommendati: Post Acute OT Treatment Plan/Plan of Care Treatment,Training & Education: Yes Patient would benefit from OT for education, treatment and training to promote independence in ADL's, mobility, safety and/or upper extremity function for ADL's. Plan of Care: ADL Retraining, Functional Mobility, Group Exercise/Act as Ind, UE Funct Exercise/Act, UE Neuromus Re-Ed/Coord Treatment Duration: Oct 01, 2021 Frequency: At least 5 of 7 days/Wk (IRF) Estimated Hrs Per Day: 1.5 hours per day Agreement: Yes Rehab Potential: Fair Time/GCodes Start Time: 07:45 Stop Time: 09:00 Total Time Billed (hr/min): 75 Billed Treatment Time 1 visit ADL x3 (40 min) FA x2 (35 min) Nisreen Lowe OT Sep 16, 2021 09:00
[2021-09-16] MEDS: meTOprolol TARTRATE 25 MG (LOPRESSOR) TABLET PO SCH ×2 (09:20→21:05)
[2021-09-16] MEDS: amLODIPine 5 MG (NORVASC) TAB PO SCH (09:20)
[2021-09-16] MEDS: ENOXAPARIN 40 MG/0.4 ML (LOVENOX) SYR SC SCH (09:20)
[2021-09-16] MEDS: PANTOPRAZOLE 40 MG (PROTONIX) TAB PO SCH ×2 (09:20→21:05)
[2021-09-16] MEDS: HYDROCORTISONE 1% CREAM 30 GM TUBE TOP SCH ×2 (09:20→21:03)
[2021-09-16] MEDS: SENNA W/DOCUSATE (SENOKOT S) TABLET PO SCH ×2 (09:38→19:33)
[2021-09-16] MEDS: DOCUSATE SODIUM 100 MG (COLACE) CAP PO SCH ×2 (09:38→19:33)
[2021-09-16] MEDS: polyethylene glycoL POWDER 17 GM (MIRALAX) PACK PO SCH ×2 (09:38→19:33)
--- NOTE | 2021-09-16 10:30 | Occupational Ther Daily Note ---
OT Current Status-Daily Note Subjective Pt alert, sitting in recliner. Pt agrees to therapy. No c/o pain. Mental Status/Objective Patient Orientation: Person, Place, Time, Situation Attachments: IV ADL-Treatment Therapy Code Descriptions/Definitions Functional [place] Measure: 0=Not Assessed/NA 4=Minimal Assistance 1=Total Assistance 5=Supervision or Setup 2=Maximal Assistance 6=Modified [place] 3=Moderate Assistance 7=Complete IndependenceSCALE: Activities may be completed with or without assistive devices. 7-Yksrznlprk-uckdrds completes the activity by him/herself with no assistance from a helper. 5-Set-up or Clean-up Assistance-helper sets up or cleans up; patient completes activity. [place] assists only prior to or following the activity. 4-Supervision or Touching Assistance-helper provides verbal cues and/or touching/steadying and/or contact guard assistance as patient completes activity. Assistance may be provided throughout the activity or intermittently. 3-Partial/Moderate Assistance-helper does LESS THAN HALF the effort. [place] li fts, holds or supports trunk or limbs, but provides less than half the effort. 2-Substantial/Maximal Assistance-helper does MORE THAN HALF the effort. [place] lifts or holds trunk or limbs and provides more than half the effort. 4-Nbijpgkmu-dhqwim does ALL the effort. Patient does none of the effort to complete the activity. Or, the assistance of 2 or more helpers is required for the patient to complete the activity. If activity was not attempted, code reason: 7-Patient Refused. 9-Not Applicable-not attempted and the patient did not perform the activity before the current illness, exacerbation or injury. 10-Not Attempted due to Environmental Limitations-(lack of equipment, weather restraints, etc.). 88-Not Attempted due to Medical Conditions or Safety Concerns. Other Treatment Pt completed tasks to integrate B UE's, increase strength, coordination and dexterity. Pt able to grasp and release medium size ring to toss onto designated area 85% of the time using R UE with assist to position using L UE. Pt then was able to hold peg board with R hand and pull resistive pegs out of board and place in designated area 20's with 90% accuracy to place. Notable fatigue in L hand. After session, pt sitting in recliner with call light/phone in reach. All needs met in room. OT Short Term Goals Short Term Goals Time Frame: Sep 22, 2021 Toileting hygiene: 2 Shower/bathe self: 2 Upper body dressin Lower body dressin Putting on/taking off footwear: 3 OT Detention Goals [employer] Retard[employer] Operator Goals Time Frame: Oct 01, 2021 Eating (QC): 5 Oral Hygiene (QC): 6 Toileting Hygiene (QC): 4 Shower/Bathe Self (QC): 4 Upper Body Dressing (QC): 5 Lower Body Dressing (QC): 4 On/Off Footwear (QC): 4 Additional Goals: 1-Demonstrate ADL Tasks, 2-Verbalize Understanding, 3-Impr oveStrength/Sara 1=Demonstrate adherence to instructed precautions during ADL tasks. 2=Patient will verbalize/demonstrate understanding of assistive devices/modifications for ADL. 3=Patient will improve strength/tolerance for activity to enable patient to perform ADL's. OT Education/Plan Problem List/Assessment Assessment: Decreased Activ Tolerance, Decreased UE Strength Discharge Recommendations Plan/Recommendations: Continue POC Treatment Plan/Plan of Care Patient would benefit from OT for education, treatment and training to promote independence in ADL's, mobility, safety and/or upper extremity function for ADL's. Plan of Care: ADL Retraining, Functional Mobility, Group Exercise/Act as Ind, UE Funct Exercise/Act, UE Neuromus Re-Ed/Coord Treatment Duration: Oct 01, 2021 Frequency: At least 5 of 7 days/Wk (IRF) Estimated Hrs Per Day: 1.5 hours per day Agreement: Yes Rehab Potential: Fair Time/GCodes Start Time: 10:05 Stop Time: 10:20 Total Time Billed (hr/min): 15 Billed Treatment Time 1 visit-EX 1 (15 min) LEO ZHU Sep 16, 2021 10:29
--- NOTE | 2021-09-16 14:31 | Physical Therapy Daily Note ---
PT Daily Note-Current Subjective Patient in recliner pre tx, agrees to PT, voices no complaints of pain. Appearance Patient in recliner post tx with nurse call, phone, tray, all needs met. Mental Status Patient Orientation: Person, Unable to Assess Attachments: [place] Catheter cervical collar Transfers SCALE: Activities may be completed with or without assistive devices. 7-Yeeqcsydmo-wvytjhs completes the activity by him/herself with no assistance from a helper. 5-Set-up or Clean-up Assistance-helper sets up or cleans up; patient completes activity. [place] assists only prior to or following the activity. 4-Supervision or Touching Assistance-helper provides verbal cues and/or touching/steadying and/or contact guard assistance as patient completes activity. Assistance may be provided throughout the activity or intermittently. 3-Partial/Moderate Assistance-helper does LESS THAN HALF the effort. [place] lifts, holds or supports trunk or limbs, but provides less than half the effort. 2-Substantial/Maximal Assistance-helper does MORE THAN HALF the effort. [place] lifts or holds trunk or limbs and provides more than half the effort. 8-Vtpvixdxr-oxphrx does ALL the effort. Patient does none of the effort to complete the activity. Or, the assistance of 2 or more helpers is required for the patient to complete the activity. If activity was not attempted, code reason: 7-Patient Refused. 9-Not Applicable-not attempted and the patient did not perform the activity before the current illness, exacerbation or injury. 10-Not Attempted due to Environmental Limitations-(lack of equipment, weather restraints, etc.). 88-Not Attempted due to Medical Conditions or Safety Concerns. Exercises Supine Ex: Ankle pumps, Quad Set, Glut sets, Heel Slides, Short Arc Quads, Straight leg raise (AAROM), Hip abd/add Supine Reps: 20 (done in recliner with legs elevated) Seated Therapy Exercises: Hip flexion, Hip abd/add Seated Reps: 20 LAQ alternating for 5 min Treatments LE strengthening Assessment Current Status: Fair Progress slow progress, performed exercises slowly, poor coordination PT Short Term Goals Short Term Goals Time Frame: Sep 08, 2021 Roll Left & Right: 4 Sit to lyin Lying to sitting on side of be: 3 Sit to stand: 2 Chair/sge-iy-tyrit transfer: 2 PT [place] Goals [facility] Goals PT [facility] Goals Time Frame: Sep 22, 2021 Roll Left & Right (QC): 4 Sit to Lying (QC): 4 Lying-Sitting on Side/Bed(QC): 4 Sit to Stand (QC): 3 Chair/Rnb-xn-Ubjwm Xfer(QC): 3 Toilet Transfer (QC): 3 Car Transfer (QC): 3 Does the Patient Walk: No and Walking Goal NOT indicated Walk 10 feet (QC): 88 Walk 50ft with 2 Turns (QC): 88 Walk 150 ft (QC): 88 Walking 10ft on Uneven Surface: 88 1 Step (curb) (QC): 88 4 Steps (QC): 88 12 Steps (QC): 88 Picking up an Object (QC): 3 Does the Pt use WC or Scooter?: Yes Wheel 50 feet with 2 turns (QC: 3 Type: Manual Wheel 150 feet: 3 Type: Manual PT Plan Problem List Problem List: Activity Tolerance, Functional Strength, Safety, Balance, Gait, Transfer, Bed Mobility, ROM Treatment/Plan Treatment Plan: Continue Plan of Care Treatment Plan: Bed Mobility, Education, Functional Activity Sara, Functional Strength, Group Therapy, Safety, Therapeutic Exercise, Transfers Treatment Duration: Sep 13, 2021 Frequency: At least 5 of 7 days/Wk (IRF) Estimated Hrs Per Day: 1.5 hours per day Patient and/or Family Agrees t: Yes Safety Risks/Education Patient Education: Correct Positioning, Safety Issues Teaching Recipient: Patient Teaching Methods: Demonstration, Discussion Response to Teaching: Reinforcement Needed Time/GCodes Time In: 1330 Time Out: 1400 Total Billed Treatment Time: 30 Total Billed Treatment 1 visit EX 30' VERONICA MONIQUE PT Sep 16, 2021 14:31
[2021-09-16] MEDS: TAMSULOSIN 0.4 MG (FLOMAX) CAP PO SCH (17:06)
[2021-09-16 19:44] VITALS: BP 130/69
[2021-09-16] MEDS: ROSUVASTATIN 20 MG (CRESTOR) TABLET PO SCH (21:05)
[2021-09-17] MEDS: CEFEPIME INJECTION 1,000 MG in NS (IVPB) 50 ML IV SCH ×4 (04:23→22:10)
[2021-09-17] MEDS: inSUlin ASPART (NovoLOG) 1 UNIT/0.01 ML (CHARGE PER UNIT) SC SCH ×4 (05:47→21:01)
[2021-09-17] MEDS: BETHANECHOL 25 MG (URECHOLINE) TAB PO SCH ×4 (05:48→20:56)
[2021-09-17] MEDS: SUCRALFATE 1 GM (CARAFATE) TAB PO SCH ×4 (05:48→20:57)
--- NOTE | 2021-09-17 06:22 | PM&R Progress Note ---
Subjective HPI/CC On Admission Date Seen by Provider: Sep 17, 2021 Time Seen by Provider: 10:30 Subjective/Events-last exam 09/17/2021: Patient doing very well Eating and drinking Maintain on cefepime Dr. Gaston will do voiding trial tomorrow 09/16/2021: Patient doing really well Hep-Lock IV fluid Pseudomonas sensitivity not back yet Family training will be soon 09/15/2021: Patient doing better Fever defervesced Aguilar back in White count improved Pseudomonas UTI maintain on cefepime and DC vancomycin Will have family come in for training 09/14/2021: Pt is not feeling well today Fever noted Had to put aguilar back in last night Suspect UTI Chest x-ray will be obtained [place] [id number] Gaston regarding the consultation Cefepime and Vanc will be initiated to cover for pseudomonas and or enterococcus Zofran and IV fluid initiated 09/13/21: Pt is doing pretty well Will attempt to discontinue the catheter today. If he has retention it could be from the spinal cord injury and could very well require it to be indwelling. Labs reviewed Blood sugar is elevated from drinking orange juice all day 09/12/2021: Patient continues to improve No pain is reported Reviewed blood sugars Blood pressure stable 09/11/2021: Patient dramatically improved Loose stools still remain Patient denies pain Moving hands and feet very well 09/10/21: Patient doing remarkably well Gaining function with hands and feet Loose BM's Blood sugars 272 Checked meds and labs 09/09/2021: Patient doing well No pain is reported Blood sugars reviewed Blood pressure reviewed Able to feed himself 09/08/2021: Pt is doing well Eating well Able to feed himself with his right hand Loose stools will be given Imodium 09/07/2021: Pt is doing well Blood sugar is 127 Bowels are loose Coccyx has a decubitus ulcer and we will monitor that closely 09/06/2021: Pt is doing a lot better Hemoglobin was 10.2 Has a decubitus ulcer on his coccyx Low bp so holding Norvasc Pilar lift is being used 09/05/2021: Patient doing really well Requiring Pilar lift though Lovenox started today Blood sugars are variable 09/04/2021: Patient doing very well Requiring Pilar lift since he cannot use the sit to stand at this current time Moving his arms and hands better Blood sugar is a little bit elevated Blood pressure better Lovenox will be started tomorrow 09/03/2021: Pt is doing well Took a shower but then he couldn't really get back in bed Had some emesis so we'll start Protonix 40 mg BID and Carafate Aguilar cath remains due to retention 09/02/2021: Pt settling in well Holding all insulin due to hypoglycemia Had emesis last night Fed himself a bit today Keeping aguilar in for retention Review of Systems General: Fatigue, Malaise Neurological: Weakness, Incoordination Focused Exam Lactate Level Objective Exam Vital Signs Vital Signs Date Time Temp Pulse Resp B/P (MAP) Pulse Ox O2 Delivery O2 Flow Rate FiO2 09/17/21 21:00 98 Room Air 09/17/21 19:48 37.0 70 20 114/56 (75) Capillary Refill : General Appearance: No Apparent Distress, WD/WN, Chronically ill, Obese HEENT: PERRL/EOMI, Normal ENT Inspection, Pharynx Normal Neck: Full Range of Motion, Normal Inspection, Non Tender, Supple, Carotid Bruit Respiratory: Chest Non Tender, Lungs Clear, Normal Breath Sounds, No Accessory Muscle Use, No Respiratory Distress Cardiovascular: Regular Rate, Rhythm, No Edema, No Gallop, No JVD, No Murmur, Normal Peripheral Pulses Gastrointestinal: Normal Bowel Sounds, No Organomegaly, No Pulsatile Mass, Non Tender, Soft Back: Normal Inspection, No CVA Tenderness, No Vertebral Tenderness, Decreased Range of Motion Extremity: Normal Capillary Refill, Normal Inspection, Normal Range of Motion, Non Tender, No Calf Tenderness, No Pedal Edema Neurologic/Psychiatric: Alert, Oriented x3, Normal Mood/Affect, Abnormal Gait, Motor Weakness Skin: Normal Color, Warm/Dry Lymphatic: No Adenopathy Results/Procedures Lab Patient resulted labs reviewed. FIM Transfers Therapy Code Descriptions/Definitions Functional [place] Measure: 0=Not Assessed/NA 4=Minimal Assistance 1=Total Assistance 5=Supervision or Setup 2=Maximal Assistance 6=Modified [place] 3=Moderate Assistance 7=Complete IndependenceSCALE: Activities may be completed with or without assistive devices. 6-Pcfbtaobto-btkesfe completes the activity by him/herself with no assistance from a helper. 5-Set-up or Clean-up Assistance-helper sets up or cleans up; patient completes activity. [place] assists only prior to or following the activity. 4-Supervision or Touching Assistance-helper provides verbal cues and/or touching/steadying and/or contact guard assistance as patient completes activity. Assistance may be provided throughout the activity or intermittently. 3-Partial/Moderate Assistance-helper does LESS THAN HALF the effort. [place] lifts, holds or supports trunk or limbs, but provides less than half the effort. 2-Substantial/Maximal Assistance-helper does MORE THAN HALF the effort. [place] lifts or holds trunk or limbs and provides more than half the effort. 4-Lxmsvpffi-ufslaa does ALL the effort. Patient does none of the effort to complete the activity. Or, the assistance of 2 or more helpers is required for the patient to complete the activity. If activity was not attempted, code reason: 7-Patient Refused. 9-Not Applicable-not attempted and the patient did not perform the activity before the current illness, exacerbation or injury. 10-Not Attempted due to Environmental Limitations-(lack of equipment, weather restraints, etc.). 88-Not Attempted due to Medical Conditions or Safety Concerns. Roll Left to Right (QC): 3 Sit to Lying (QC): 1 Sit to Stand (QC): 3 Chair/Awo-ro-Fihpt Xfer(QC): 3 Car Transfer (QC): 88 Gait Training Does the Patient Walk?: No and Walking Goal NOT indicated Distance: 6'x3 Walk 10 feet (QC): 88 Walk 50 ft with 2 Turns(QC): 88 Walk 150 ft (QC): 88 Walking 10ft/uneven surface-QC: 88 Gait Persons Needed: 1 Gait Assistive Device: Parallel Bars Wheelchair Training Does the Pt Use a Wheelchair?: Yes Wheel 50 ft with 2 turns (QC): 3 Wheel 150 ft (QC): 3 Type of Wheelchair: Manual Stair Training 1 Step (curb) (QC): 88 4 Steps (QC): 88 12 Steps (QC): 88 Balance Picking up an Object (QC): 88 ADL-Treatment Eating (QC): 5 Oral Hygiene (QC): 4 Shower/Bathe Self (QC): 1 Upper Body Dressing (QC): 2 Lower Body Dressing (QC): 2 On/Off Footwear (QC): 3 Toileting Hygiene (QC): 1 Toilet Transfer (QC): 1 Assessment/Plan Assessment and Plan Assess & Plan/Chief Complaint Assessment: 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 Diabetes [id number] Hypertension Hyperlipidemia Previous CVA with right-sided weakness Coccyx decubitus ulcers Pseudomonas UTI status post SIRS Plan: Aggressive therapy Pain control Monitor bowel function Insulin 09/02/2021: Supportive care Aggressive therapy Hold insulin 09/03/2021: Supportive care Cervical spine collar Aguilar catheter 09/04/2021: Supportive care Cervical spine collar Aguilar catheter Pilar lift We'll start Lovenox tomorrow 09/05/2021: Supportive care Lovenox Maintain Aguilar 09/06/2021: Maintain Aguilar Continues to be Pilar lift 09/07/2021: Coccyx decubitus ulcer management 09/08/2021: Imodium for loose stools Continue to progress 09/09/2021: Imodium for loose stools Supportive care 09/10/2021: Supportive care Dramatic improvement 09/11/2021: Supportive care We will attempt to DC Aguilar catheter this week 09/12/2021: Attempt to DC Aguilar catheter Supportive care 09/13/21: Voiding trial Monitor sugar 09/14/2021: Empiric antibiotics Urology consultation 09/15/2021: DC vancomycin Maintain cefepime 09/16/2021: Maintain cefepime Supportive care Hep-Lock IV fluid 09/17/2021: Maintain antibiotics (1) Cervical spine syndrome (2) Myoclonus (3) Type 2 diabetes mellitus without complication (4) Primary hypertension (5) Mixed hyperlipidemia (6) History of CVA with residual deficit (7) Right sided weakness (8) Cervical cord myelomalacia (9) Spinal cord contusion (10) Fall Status: Acute [place] AJMESI DO Sep 17, 2021 06:22
[2021-09-17 07:25] VITALS: BP 114/55
[2021-09-17] MEDS: DOCUSATE SODIUM 100 MG (COLACE) CAP PO SCH ×2 (09:00→21:13)
--- NOTE | 2021-09-17 09:00 | Physical Therapy Daily Note ---
PT Daily Note-Current Subjective Patient in bed pre tx, agrees to PT, voices no complaints of pain. Appearance Patient in recliner post tx with nurse call, phone, tray, all needs met. Mental Status Patient Orientation: Person, Unable to Assess Attachments: Tyson Catheter cervical collar Transfers SCALE: Activities may be completed with or without assistive devices. 0-Etibwciuqp-gratbxs completes the activity by him/herself with no assistance from a helper. 5-Set-up or Clean-up Assistance-helper sets up or cleans up; patient completes activity. [place] assists only prior to or following the activity. 4-Supervision or Touching Assistance-helper provides verbal cues and/or touching/steadying and/or contact guard assistance as patient completes activity. Assistance may be provided throughout the activity or intermittently. 3-Partial/Moderate Assistance-helper does LESS THAN HALF the effort. [place] lifts, holds or supports trunk or limbs, but provides less than half the effort. 2-Substantial/Maximal Assistance-helper does MORE THAN HALF the effort. [place] lifts or holds trunk or limbs and provides more than half the effort. 5-Lqidqswmw-mcijec does ALL the effort. Patient does none of the effort to complete the activity. Or, the assistance of 2 or more helpers is required for the patient to complete the activity. If activity was not attempted, code reason: 7-Patient Refused. 9-Not Applicable-not attempted and the patient did not perform the activity before the current illness, exacerbation or injury. 10-Not Attempted due to Environmental Limitations-(lack of equipment, weather restraints, etc.). 88-Not Attempted due to Medical Conditions or Safety Concerns. Roll Left & Right (QC): 3 Lying to Sitting/Side of Bed(Q: 3 Sit to Stand (QC): 3 Chair/Moo-tl-Lpwer Xfer(QC): 3 Patient needs cleaned for a BM at the beginning of tx, has to roll a couple of times to each side for cleaning and changing brief. Min assist for supine to sit and mod assist for stand pivot transfer. During therapy patient practices stand pivot transfers x4 to the right side with min/mod assist. Patient didn't have his cervical collar on initially so it was donned immediately upon starting therapy. Wheelchair Training Does the Pt Use a Wheelchair?: Yes Wheel 50 ft with 2 turns (QC): 3 Type of Wheelchair: Manual 100' Exercises Patient also performed a standing exercise combined with UE activity that involved reaching and grabbing Treatments PT performed rolling, transfers, WC mobility, standing, balance training, OT performed cleaning, dressing ADL's, UE activity Assessment Current Status: Fair Progress Patient has slightly improved his transfers PT Short Term Goals Short Term Goals Time Frame: Sep 08, 2021 Roll Left & Right: 4 Sit to lyin Lying to sitting on side of be: 3 Sit to stand: 2 Chair/jxy-qh-yocqz transfer: 2 PT Residential Goals Residential Goals PT [employer] Leader Goals Time Frame: Sep 22, 2021 Roll Left & Right (QC): 4 Sit to Lying (QC): 4 Lying-Sitting on Side/Bed(QC): 4 Sit to Stand (QC): 3 Chair/Zqu-ru-Exajq Xfer(QC): 3 Toilet Transfer (QC): 3 Car Transfer (QC): 3 Does the Patient Walk: No and Walking Goal NOT indicated Walk 10 feet (QC): 88 Walk 50ft with 2 Turns (QC): 88 Walk 150 ft (QC): 88 Walking 10ft on Uneven Surface: 88 1 Step (curb) (QC): 88 4 Steps (QC): 88 12 Steps (QC): 88 Picking up an Object (QC): 3 Does the Pt use WC or Scooter?: Yes Wheel 50 feet with 2 turns (QC: 3 Type: Manual Wheel 150 feet: 3 Type: Manual PT Plan Problem List Problem List: Activity Tolerance, Functional Strength, Safety, Balance, Gait, Transfer, Bed Mobility, ROM Treatment/Plan Treatment Plan: Continue Plan of Care Treatment Plan: Bed Mobility, Education, Functional Activity Sara, Functional Strength, Group Therapy, Safety, Therapeutic Exercise, Transfers Treatment Duration: Sep 13, 2021 Frequency: At least 5 of 7 days/Wk (IRF) Estimated Hrs Per Day: 1.5 hours per day Patient and/or Family Agrees t: Yes Safety Risks/Education Patient Education: Transfer Techniques, Correct Positioning, W/C Management, Safety Issues Teaching Recipient: Patient Teaching Methods: Demonstration, Discussion Response to Teaching: Reinforcement Needed Time/GCodes Time In: 0800 Time Out: 0900 Total Billed Treatment Time: 60 Total Billed Treatment 1 visit FA 60' VERONICA MONIQUE PT Sep 17, 2021 08:59
[2021-09-17] MEDS: PANTOPRAZOLE 40 MG (PROTONIX) TAB PO SCH ×2 (09:01→20:57)
[2021-09-17] MEDS: meTOprolol TARTRATE 25 MG (LOPRESSOR) TABLET PO SCH ×2 (09:01→20:57)
[2021-09-17] MEDS: ENOXAPARIN 40 MG/0.4 ML (LOVENOX) SYR SC SCH (09:01)
[2021-09-17] MEDS: amLODIPine 5 MG (NORVASC) TAB PO SCH ×2 (09:01→09:20)
[2021-09-17] MEDS: HYDROCORTISONE 1% CREAM 30 GM TUBE TOP SCH ×2 (09:02→21:12)
--- NOTE | 2021-09-17 09:06 | Occupational Ther Daily Note ---
OT Current Status-Daily Note Subjective Pt sleeping at therapy arrival. Easy to waken. Agreeable to treatment. Co-treat with PT due to need of 2 skilled clinicians to progress indep with adls and mobility. Appearance Pt left sitting in recliner, all needs within reach. ADL-Treatment Therapy Code Descriptions/Definitions Functional [place] Measure: 0=Not Assessed/NA 4=Minimal Assistance 1=Total Assistance 5=Supervision or Setup 2=Maximal Assistance 6=Modified [place] 3=Moderate Assistance 7=Complete IndependenceSCALE: Activities may be completed with or without assistive devices. 4-Skspyjilet-lkwwdck completes the activity by him/herself with no assistance from a helper. 5-Set-up or Clean-up Assistance-helper sets up or cleans up; patient completes activity. [place] assists only prior to or following the activity. 4-Supervision or Touching Assistance-helper provides verbal cues and/or touching/steadying and/or contact guard assistance as patient completes a ctivity. Assistance may be provided throughout the activity or intermittently. 3-Partial/Moderate Assistance-helper does LESS THAN HALF the effort. [place] lifts, holds or supports trunk or limbs, but provides less than half the effort. 2-Substantial/Maximal Assistance-helper does MORE THAN HALF the effort. [place] lifts or holds trunk or limbs and provides more than half the effort. 4-Bnlfltugr-acbtfx does ALL the effort. Patient does none of the effort to complete the activity. Or, the assistance of 2 or more helpers is required for the patient to complete the activity. If activity was not attempted, code reason: 7-Patient Refused. 9-Not Applicable-not attempted and the patient did not perform the activity before the current illness, exacerbation or injury. 10-Not Attempted due to Environmental Limitations-(lack of equipment, weather restraints, etc.). 88-Not Attempted due to Medical Conditions or Safety Concerns. Oral Hygiene (QC): 4 Lower Body Dressing (QC): 1 On/Off Footwear: 3 Toileting Hygiene (QC): 1 Toilet Transfer (QC): 1 Pt incontinent of bowels at therapy arrival. Dependent for latonya care while rolling R/L in bed. Min-mod a to roll completely onto side due to Increased extensor tone exhibited during bed mobility this date. New brief donned at bed level; dependent. Pt able to lift foot 1/2 way to figure 4 position, assist to bring fully over contralateral knee (figure 4 position) in order to don socks. Min a to bring fully over heel. Oral care and face washing performed at w/c level at sink. Extra time with bilateral tasks, but no assist required this date. Other Treatment Pt completed multiple sit<>stand transfers and 5 continuos stand/squat pivot transfers, all to R side. Difficulty to get proper squat pivot body mechanics secondary to LE extensor tone. Mod-max A each transfer. OT assisting with UE placement/reaching, safety, and guiding pt's hips in right direction during transfer as PT assisted with balance, safety, blocking knee and transitioning of feet. Pt also participated in dynamic standing balance task while standing at heightened therapy mat. OT focusing on UE functional reach, shirring machine operator automatic strength, weight bearing and balance as PT focused on balance and MAINOR during task. With dowel murray in hand, Pt able to reach anteriorly to slide cones to designated finish line. Task completed with both R and L hand 10x2 each. Seated rest break in between. No knee buckling notable during activity. Emphasis on LUE weight bearing when completing task with R hand. Education OT Patient Education: Correct positioning, Modified ADL techniques, Progress toward Goal/Update tx plan, Purpose of tx/functional activities, Safety issues, Transfer techniques, W/C management Teaching Recipient: Patient Teaching Methods: Demonstration, Discussion Response to Teaching: Return Demonstration, Reinforcement Needed OT Short Term Goals Short Term Goals Time Frame: Sep 22, 2021 Toileting hygiene: 2 Shower/bathe self: 2 Upper body dressin Lower body dressin Putting on/taking off footwear: 3 OT Senior Care Goals Mold Maintenance Technician Goals Time Frame: Oct 01, 2021 Eating (QC): 5 Oral Hygiene (QC): 6 Toileting Hygiene (QC): 4 Shower/Bathe Self (QC): 4 Upper Body Dressing (QC): 5 Lower Body Dressing (QC): 4 On/Off Footwear (QC): 4 Additional Goals: 1-Demonstrate ADL Tasks, 2-Verbalize Understanding, 3-ImproveStrength/Sara 1=Demonstrate adherence to instructed precautions during ADL tasks. 2=Patient will verbalize/demonstrate understanding of assistive devices/modifications for ADL. 3=Patient will improve strength/tolerance for activity to enable patient to perform ADL's. OT Education/Plan Problem List/Assessment Assessment: Decreased Activ Tolerance, Decreased UE Strength, Dependent Transfers, Impaired Cognition, Impaired Coordination, Impaired Funct Balance, Impaired I ADL's, Impaired Self-Care Skills, Restricted Funct UE ROM Discharge Recommendations Plan/Recommendations: Continue POC Treatment Plan/Plan of Care Treatment,Training & Education: Yes Patient would benefit from OT for education, treatment and training to promote independence in ADL's, mobility, safety and/or upper extremity function for ADL's. Plan of Care: ADL Retraining, Functional Mobility, Group Exercise/Act as Ind, UE Funct Exercise/Act, UE Neuromus Re-Ed/Coord Treatment Duration: Oct 01, 2021 Frequency: At least 5 of 7 days/Wk (IRF) Estimated Hrs Per Day: 1.5 hours per day Agreement: Yes Rehab Potential: Fair Time/GCodes Start Time: 08:00 Stop Time: 09:00 Total Time Billed (hr/min): 60 Billed Treatment Time 1 visit ADL x2 (25 min) FA x2 (35 min) Nisreen Lowe OT Sep 17, 2021 09:06
[2021-09-17] MEDS: polyethylene glycoL POWDER 17 GM (MIRALAX) PACK PO SCH ×2 (09:20→21:13)
[2021-09-17] MEDS: SENNA W/DOCUSATE (SENOKOT S) TABLET PO SCH ×2 (09:21→21:13)
--- NOTE | 2021-09-17 09:26 | Progress Note - Urology ---
Progress Note-Urology Progress Notes/Assess & Plan Progress/Assessment & Plan TOV TOMORROW Final Diagnosis RETENTION VICKI DEL ROSARIO MD Sep 17, 2021 09:26
--- NOTE | 2021-09-17 10:31 | Occupational Ther Daily Note ---
OT Current Status-Daily Note Subjective Pt talking on phone to sister at OT arrival. Agreeable to treatment. Appearance Pt left sitting in recliner, all needs within reach. ADL-Treatment Therapy Code Descriptions/Definitions Functional [place] Measure: 0=Not Assessed/NA 4=Minimal Assistance 1=Total Assistance 5=Supervision or Setup 2=Maximal Assistance 6=Modified [place] 3=Moderate Assistance 7=Complete IndependenceSCALE: Activities may be completed with or without assistive devices. 1-Ntqzncofoq-cyagjib completes the activity by him/herself with no assistance from a helper. 5-Set-up or Clean-up Assistance-helper sets up or cleans up; patient completes activity. [place] assists only prior to or following the activity. 4-Supervision or Touching Assistance-helper provides verbal cues and/or touching/steadying and/or contact guard assistance as patient completes activity. Assistance may be provided throughout the activity or intermittently. 3-Partial/Moderate Assistance-helper does LESS THAN HALF the effort. [place] lifts, holds or supports trunk or limbs, but provides less than half the effort. 2-Substantial/Maximal Assistance-helper does MORE THAN HALF the effort. [place] lifts or holds trunk or limbs and provides more than half the effort. 9-Xcjuzlnmm-ykniqt does ALL the effort. Patient does none of the effort to complete the activity. Or, the assistance of 2 or more helpers is required for the patient to complete the activity. If activity was not attempted, code reason: 7-Patient Refused. 9-Not Applicable-not attempted and the patient did not perform the activity before the current illness, exacerbation or injury. 10-Not Attempted due to Environmental Limitations-(lack of equipment, weather restraints, etc.). 88-Not Attempted due to Medical Conditions or Safety Concerns. Other Treatment OT issued and instructed pt on county auditor/hand exercises with yellow theraputty. As L hand fatigues, pt will utilize R. Encouragement to use L hand a little bit more. With extra time, he was able to roll putty into a ball, log, flatten, and pinch along edges. Pt then instructed to retrieve small beads hidden in putty in effort to increase pinch/digit strength. Pt utilized both R and L hand tip pinch. Intermittent cues at shoulder to reduce compensation as pt has tendency to adduct and elevate L shoulder when lifting. OT instructed pt on continuing to perform simple exercises during the weekend. Unsure if understanding occurred secondary to language barrier. Education OT Patient Education: Correct positioning, Exercise program, Progress toward G oal/Update tx plan, Purpose of tx/functional activities, Use of adapted equipment Teaching Recipient: Patient Teaching Methods: Demonstration, Discussion Response to Teaching: Return Demonstration, Reinforcement Needed OT Short Term Goals Short Term Goals Time Frame: Sep 22, 2021 Toileting hygiene: 2 Shower/bathe self: 2 Upper body dressin Lower body dressin Putting on/taking off footwear: 3 OT Chief Medical Director Goals [facility] Goals Time Frame: Oct 01, 2021 Eating (QC): 5 Oral Hygiene (QC): 6 Toileting Hygiene (QC): 4 Shower/Bathe Self (QC): 4 Upper Body Dressing (QC): 5 Lower Body Dressing (QC): 4 On/Off Footwear (QC): 4 Additional Goals: 1-Demonstrate ADL Tasks, 2-Verbalize Understanding, 3-Improv eStrength/Sara 1=Demonstrate adherence to instructed precautions during ADL tasks. 2=Patient will verbalize/demonstrate understanding of assistive devices/modifications for ADL. 3=Patient will improve strength/tolerance for activity to enable patient to p erform ADL's. OT Education/Plan Problem List/Assessment Assessment: Decreased Activ Tolerance, Decreased Safety Aware, Decreased UE Strength, Dependent Transfers, Impaired Coordination, Impaired Funct Balance, Impaired I ADL's, Impaired Self-Care Skills, Restricted Funct UE ROM Discharge Recommendations Plan/Recommendations: Continue POC Treatment Plan/Plan of Care Treatment,Training & Education: Yes Patient would benefit from OT for education, treatment and training to promote independence in ADL's, mobility, safety and/or upper extremity function for ADL's. Plan of Care: ADL Retraining, Functional Mobility, Group Exercise/Act as Ind, UE Funct Exercise/Act, UE Neuromus Re-Ed/Coord Treatment Duration: Oct 01, 2021 Frequency: At least 5 of 7 days/Wk (IRF) Estimated Hrs Per Day: 1.5 hours per day Agreement: Yes Rehab Potential: Fair Time/GCodes Start Time: 10:00 Stop Time: 10:30 Total Time Billed (hr/min): 30 Billed Treatment Time 1 visit EX (15 min) FA (15 min) Nisreen Lowe OT Sep 17, 2021 10:31
--- NOTE | 2021-09-17 13:22 | Physical Therapy Daily Note ---
PT Daily Note-Current Subjective Patient in recliner pre tx, agrees to PT, voices no complaints of pain. Appearance Patient in recliner post tx with nurse call, phone, tray, all needs met. Mental Status Patient Orientation: Person, Unable to Assess Attachments: Tyson Catheter cervical collar Transfers SCALE: Activities may be completed with or without assistive devices. 5-Oiraicylvx-yngypud completes the activity by him/herself with no assistance from a helper. 5-Set-up or Clean-up Assistance-helper sets up or cleans up; patient completes activity. [place] assists only prior to or following the activity. 4-Supervision or Touching Assistance-helper provides verbal cues and/or touching/steadying and/or contact guard assistance as patient completes activity. Assistance may be provided throughout the activity or intermittently. 3-Partial/Moderate Assistance-helper does LESS THAN HALF the effort. [place] lifts, holds or supports trunk or limbs, but provides less than half the effort. 2-Substantial/Maximal Assistance-helper does MORE THAN HALF the effort. [place] lifts or holds trunk or limbs and provides more than half the effort. 5-Wvxweiizp-vjkwbq does ALL the effort. Patient does none of the effort to complete the activity. Or, the assistance of 2 or more helpers is required for the patient to complete the activity. If activity was not attempted, code reason: 7-Patient Refused. 9-Not Applicable-not attempted and the patient did not perform the activity before the current illness, exacerbation or injury. 10-Not Attempted due to Environmental Limitations-(lack of equipment, weather restraints, etc.). 88-Not Attempted due to Medical Conditions or Safety Concerns. Exercises Supine Ex: Ankle pumps, Quad Set, Glut sets, Heel Slides, Short Arc Quads, Straight leg raise (AAROM), Hip abd/add Supine Reps: 20 Seated Therapy Exercises: Hip flexion, Hip abd/add (with ball and RTB) LAQ alternating for 5 min Treatments LE strengthening Assessment Current Status: Fair Progress patient has some trouble breaking through extensor tone to perform heel slides PT Short Term Goals Short Term Goals Time Frame: Sep 08, 2021 Roll Left & Right: 4 Sit to lyin Lying to sitting on side of be: 3 Sit to stand: 2 Chair/rcg-ll-morma transfer: 2 PT Assisted Goals Hotel Supplies Salesperson Goals PT Hotel Supplies Salesperson Goals Time Frame: Sep 22, 2021 Roll Left & Right (QC): 4 Sit to Lying (QC): 4 Lying-Sitting on Side/Bed(QC): 4 Sit to Stand (QC): 3 Chair/Ynj-bq-Dgpgb Xfer(QC): 3 Toilet Transfer (QC): 3 Car Transfer (QC): 3 Does the Patient Walk: No and Walking Goal NOT indicated Walk 10 feet (QC): 88 Walk 50ft with 2 Turns (QC): 88 Walk 150 ft (QC): 88 Walking 10ft on Uneven Surface: 88 1 Step (curb) (QC): 88 4 Steps (QC): 88 12 Steps (QC): 88 Picking up an Object (QC): 3 Does the Pt use WC or Scooter?: Yes Wheel 50 feet with 2 turns (QC: 3 Type: Manual Wheel 150 feet: 3 Type: Manual PT Plan Problem List Problem List: Activity Tolerance, Functional Strength, Safety, Balance, Gait, Transfer, Bed Mobility, ROM Treatment/Plan Treatment Plan: Continue Plan of Care Treatment Plan: Bed Mobility, Education, Functional Activity Sara, Functional Strength, Group Therapy, Safety, Therapeutic Exercise, Transfers Treatment Duration: Sep 13, 2021 Frequency: At least 5 of 7 days/Wk (IRF) Estimated Hrs Per Day: 1.5 hours per day Patient and/or Family Agrees t: Yes Safety Risks/Education Patient Education: Correct Positioning, Safety Issues Teaching Recipient: Patient Teaching Methods: Demonstration, Discussion Response to Teaching: Reinforcement Needed Time/GCodes Time In: 1300 Time Out: 1330 Total Billed Treatment Time: 30 Total Billed Treatment 1 visit EX 30' VERONICA MONIQUE PT Sep 17, 2021 13:22
[2021-09-17] MEDS: TAMSULOSIN 0.4 MG (FLOMAX) CAP PO SCH (16:52)
[2021-09-17 19:48] VITALS: BP 114/56
[2021-09-17] MEDS: ROSUVASTATIN 20 MG (CRESTOR) TABLET PO SCH (20:57)
[2021-09-17] MEDS: ACETAMINOPHEN 325 MG TABLET PO PRN (20:58)
[2021-09-18] MEDS: CEFEPIME INJECTION 1,000 MG in NS (IVPB) 50 ML IV SCH ×4 (04:13→22:06)
[2021-09-18] MEDS: inSUlin ASPART (NovoLOG) 1 UNIT/0.01 ML (CHARGE PER UNIT) SC SCH ×4 (06:00→20:32)
--- NOTE | 2021-09-18 06:00 | PM&R Progress Note ---
Subjective HPI/CC On Admission Date Seen by Provider: Sep 18, 2021 Time Seen by Provider: 11:45 Subjective/Events-last exam 09/18/2021: Patient doing well Maintained on cefepime Voiding trial per urology No pain is reported 09/17/2021: Patient doing very well Eating and drinking Maintain on cefepime Dr. Gaston will do voiding trial tomorrow 09/16/2021: Patient doing really well Hep-Lock IV fluid Pseudomonas sensitivity not back yet Family training will be soon 09/15/2021: Patient doing better Fever defervesced Aguilar back in White count improved Pseudomonas UTI maintain on cefepime and DC vancomycin Will have family come in for training 09/14/2021: Pt is not feeling well today Fever noted Had to put aguilar back in last night Suspect UTI Chest x-ray will be obtained also [place] [address] Gaston regarding the consultation Cefepime and Vanc will be initiated to cover for pseudomonas and or enterococcus Zofran and IV fluid initiated 09/13/21: Pt is doing pretty well Will attempt to discontinue the catheter today. If he has retention it could be from the spinal cord injury and could very well require it to be indwelling. Labs reviewed Blood sugar is elevated from drinking orange juice all day 09/12/2021: Patient continues to improve No pain is reported Reviewed blood sugars Blood pressure stable 09/11/2021: Patient dramatically improved Loose stools still remain Patient denies pain Moving hands and feet very well 09/10/21: Patient doing remarkably well Gaining function with hands and feet Loose BM's Blood sugars 272 Checked meds and labs 09/09/2021: Patient doing well No pain is reported Blood sugars reviewed Blood pressure reviewed Able to feed himself 09/08/2021: Pt is doing well Eating well Able to feed himself with his right hand Loose stools will be given Imodium 09/07/2021: Pt is doing well Blood sugar is 127 Bowels are loose Coccyx has a decubitus ulcer and we will monitor that closely 09/06/2021: Pt is doing a lot better Hemoglobin was 10.2 Has a decubitus ulcer on his coccyx Low bp so holding Norvasc Pilar lift is being used 09/05/2021: Patient doing really well Requiring Pilar lift though Lovenox started today Blood sugars are variable 09/04/2021: Patient doing very well Requiring Pilar lift since he cannot use the sit to stand at this current time Moving his arms and hands better Blood sugar is a little bit elevated Blood pressure better Lovenox will be started tomorrow 09/03/2021: Pt is doing well Took a shower but then he couldn't really get back in bed Had some emesis so we'll start Protonix 40 mg BID and Carafate Aguilar cath remains due to retention 09/02/2021: Pt settling in well Holding all insulin due to hypoglycemia Had emesis last night Fed himself a bit today Keeping aguilar in for retention Review of Systems General: Fatigue, Malaise Objective Exam Vital Signs Vital Signs Date Time Temp Pulse Resp B/P (MAP) Pulse Ox O2 Delivery O2 Flow Rate FiO2 09/18/21 20:35 97 Room Air 09/18/21 19:58 37.2 74 18 124/73 (90) Capillary Refill : General Appearance: No Apparent Distress, WD/WN, Chronically ill, Obese HEENT: PERRL/EOMI, Normal ENT Inspection, Pharynx Normal Neck: Full Range of Motion, Normal Inspection, Non Tender, Supple, Carotid Bruit Respiratory: Chest Non Tender, Lungs Clear, Normal Breath Sounds, No Accessory Muscle Use, No Respiratory Distress Cardiovascular: Regular Rate, Rhythm, No Edema, No Gallop, No JVD, No Murmur, Normal Peripheral Pulses Gastrointestinal: Normal Bowel Sounds, No Organomegaly, No Pulsatile Mass, Non Tender, Soft Back: Normal Inspection, No CVA Tenderness, No Vertebral Tenderness, Decreased Range of Motion Extremity: Normal Capillary Refill, Normal Inspection, Normal Range of Motion, Non Tender, No Calf Tenderness, No Pedal Edema Neurologic/Psychiatric: Alert, Oriented x3, Normal Mood/Affect, Abnormal Gait, Motor Weakness Skin: Normal Color, Warm/Dry Lymphatic: No Adenopathy Results/Procedures Lab Patient resulted labs reviewed. FIM Transfers Therapy Code Descriptions/Definitions Functional [place] Measure: 0=Not Assessed/NA 4=Minimal Assistance 1=Total Assistance 5=Supervision or Setup 2=Maximal Assistance 6=Modified [place] 3=Moderate Assistance 7=Complete IndependenceSCALE: Activities may be completed with or without assistive devices. 2-Gmswnmcquv-ushlivf completes the activity by him/herself with no assistance from a helper. 5-Set-up or Clean-up Assistance-helper sets up or cleans up; patient completes activity. [place] assists only prior to or following the activity. 4-Supervision or Touching Assistance-helper provides verbal cues and/or touching/steadying and/or contact guard assistance as patient completes activity. Assistance may be provided throughout the activity or intermittently. 3-Partial/Moderate Assistance-helper does LESS THAN HALF the effort. [place] lifts, holds or supports trunk or limbs, but provides less than half the effort. 2-Substantial/Maximal Assistance-helper does MORE THAN HALF the effort. [place] lifts or holds trunk or limbs and provides more than half the effort. 1-Khrdvhzoe-ycidgu does ALL the effort. Patient does none of the effort to complete the activity. Or, the assistance of 2 or more helpers is required for the patient to complete the activity. If activity was not attempted, code reason: 7-Patient Refused. 9-Not Applicable-not attempted and the patient did not perform the activity before the current illness, exacerbation or injury. 10-Not Attempted due to Environmental Limitations-(lack of equipment, weather restraints, etc.). 88-Not Attempted due to Medical Conditions or Safety Concerns. Roll Left to Right (QC): 3 Sit to Lying (QC): 1 Sit to Stand (QC): 3 Chair/Fkj-ys-Edvtf Xfer(QC): 3 Car Transfer (QC): 88 Gait Training Does the Patient Walk?: No and Walking Goal NOT indicated Distance: 6'x3 Walk 10 feet (QC): 88 Walk 50 ft with 2 Turns(QC): 88 Walk 150 ft (QC): 88 Walking 10ft/uneven surface-QC: 88 Gait Persons Needed: 1 Gait Assistive Device: Parallel Bars Wheelchair Training Does the Pt Use a Wheelchair?: Yes Wheel 50 ft with 2 turns (QC): 3 Wheel 150 ft (QC): 3 Type of Wheelchair: Manual Stair Training 1 Step (curb) (QC): 88 4 Steps (QC): 88 12 Steps (QC): 88 Balance Picking up an Object (QC): 88 ADL-Treatment Eating (QC): 5 Oral Hygiene (QC): 4 Shower/Bathe Self (QC): 1 Upper Body Dressing (QC): 2 Lower Body Dressing (QC): 1 On/Off Footwear (QC): 3 Toileting Hygiene (QC): 1 Toilet Transfer (QC): 1 Assessment/Plan Assessment and Plan Assess & Plan/Chief Complaint Assessment: 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 Diabetes [id number] Hypertension Hyperlipidemia Previous CVA with right-sided weakness Coccyx decubitus ulcers Pseudomonas UTI status post SIRS Plan: Aggressive therapy Pain control Monitor bowel function Insulin 09/02/2021: Supportive care Aggressive therapy Hold insulin 09/03/2021: Supportive care Cervical spine collar Aguilar catheter 09/04/2021: Supportive care Cervical spine collar Aguilar catheter Pilar lift We'll start Lovenox tomorrow 09/05/2021: Supportive care Lovenox Maintain Aguilar 09/06/2021: Maintain Aguilar Continues to be Pilar lift 09/07/2021: Coccyx decubitus ulcer management 09/08/2021: Imodium for loose stools Continue to progress 09/09/2021: Imodium for loose stools Supportive care 09/10/2021: Supportive care Dramatic improvement 09/11/2021: Supportive care We will attempt to DC Aguilar catheter this week 09/12/2021: Attempt to DC Aguilar catheter Supportive care 09/13/21: Voiding trial Monitor sugar 09/14/2021: Empiric antibiotics Urology consultation 09/15/2021: DC vancomycin Maintain cefepime 09/16/2021: Maintain cefepime Supportive care Hep-Lock IV fluid 09/17/2021: Maintain antibiotics 09/18/2021: Supportive care Antibiotics (1) Cervical spine syndrome (2) Myoclonus (3) Type 2 diabetes mellitus without complication (4) Primary hypertension (5) Mixed hyperlipidemia (6) History of CVA with residual deficit (7) Right sided weakness (8) Cervical cord myelomalacia (9) Spinal cord contusion (10) Fall Status: Acute SHAYNE JAMES DO Sep 18, 2021 06:00
[2021-09-18] MEDS: BETHANECHOL 25 MG (URECHOLINE) TAB PO SCH ×4 (06:25→20:31)
[2021-09-18] MEDS: SUCRALFATE 1 GM (CARAFATE) TAB PO SCH ×4 (06:25→20:32)
[2021-09-18 07:08] VITALS: BP 129/73
[2021-09-18] MEDS: DOCUSATE SODIUM 100 MG (COLACE) CAP PO SCH (07:28)
[2021-09-18] MEDS: SENNA W/DOCUSATE (SENOKOT S) TABLET PO SCH (07:29)
[2021-09-18] MEDS: polyethylene glycoL POWDER 17 GM (MIRALAX) PACK PO SCH (07:29)
[2021-09-18] MEDS: ENOXAPARIN 40 MG/0.4 ML (LOVENOX) SYR SC SCH (07:53)
[2021-09-18] MEDS: HYDROCORTISONE 1% CREAM 30 GM TUBE TOP SCH ×2 (07:53→20:39)
[2021-09-18] MEDS: PANTOPRAZOLE 40 MG (PROTONIX) TAB PO SCH ×2 (07:54→20:31)
[2021-09-18] MEDS: amLODIPine 5 MG (NORVASC) TAB PO SCH (07:55)
[2021-09-18] MEDS: meTOprolol TARTRATE 25 MG (LOPRESSOR) TABLET PO SCH ×2 (07:55→20:31)
--- NOTE | 2021-09-18 12:42 | Physical Therapy Daily Note ---
PT Daily Note-Current Subjective Pt laying Supine in bed upon arrival. Pt agrees to PT. Mental Status Patient Orientation: Person Attachments: Other-See Comments (Cervical Collar) Transfers SCALE: Activities may be completed with or without assistive devices. 2-Jokiqyacpj-bcthliu completes the activity by him/herself with no assistance from a helper. 5-Set-up or Clean-up Assistance-helper sets up or cleans up; patient completes activity. [place] assists only prior to or following the activity. 4-Supervision or Touching Assistance-helper provides verbal cues and/or touching/steadying and/or contact guard assistance as patient completes activity. Assistance may be provided throughout the activity or intermittently. 3-Partial/Moderate Assistance-helper does LESS THAN HALF the effort. [place] lifts, holds or supports trunk or limbs, but provides less than half the effort. 2-Substantial/Maximal Assistance-helper does MORE THAN HALF the effort. [place] lifts or holds trunk or limbs and provides more than half the effort. 3-Ibuqgomnd-kjxqno does ALL the effort. Patient does none of the effort to complete the activity. Or, the assistance of 2 or more helpers is required for the patient to complete the activity. If activity was not attempted, code reason: 7-Patient Refused. 9-Not Applicable-not attempted and the patient did not perform the activity before the current illness, exacerbation or injury. 10-Not Attempted due to Environmental Limitations-(lack of equipment, weather restraints, etc.). 88-Not Attempted due to Medical Conditions or Safety Concerns. Exercises Supine Ex: Ankle pumps, Quad Set, Glut sets, Heel Slides, Straight leg raise, Hip abd/add Supine Reps: 15 Treatments Pt had just finished lunch and agreed to Supine Ex in bed. Pt declined getting out of bed. All needs meet, call light in hand. Assessment Current Status: Fair Progress Pt is gaining strength which is improving mobility. PT Short Term Goals Short Term Goals Time Frame: Sep 08, 2021 Roll Left & Right: 4 Sit to lyin Lying to sitting on side of be: 3 Sit to stand: 2 Chair/baw-fd-lafvy transfer: [address] Mechanical Engineer Goals Fdc Goals PT Rd Mechanical Engineer Goals Time Frame: Sep 22, 2021 Roll Left & Right (QC): 4 Sit to Lying (QC): 4 Lying-Sitting on Side/Bed(QC): 4 Sit to Stand (QC): 3 Chair/Elj-nn-Mhsxf Xfer(QC): 3 Toilet Transfer (QC): 3 Car Transfer (QC): 3 Does the Patient Walk: No and Walking Goal NOT indicated Walk 10 feet (QC): 88 Walk 50ft with 2 Turns (QC): 88 Walk 150 ft (QC): 88 Walking 10ft on Uneven Surface: 88 1 Step (curb) (QC): 88 4 Steps (QC): 88 12 Steps (QC): 88 Picking up an Object (QC): 3 Does the Pt use WC or Scooter?: Yes Wheel 50 feet with 2 turns (QC: 3 Type: Manual Wheel 150 feet: 3 Type: Manual PT Plan Problem List Problem List: Activity Tolerance, Transfer Treatment/Plan Treatment Plan: Continue Plan of Care Treatment Plan: Bed Mobility, Education, Functional Activity Sara, Functional Strength, Group Therapy, Safety, Therapeutic Exercise, Transfers Treatment Duration: Sep 13, 2021 Frequency: At least 5 of 7 days/Wk (IRF) Estimated Hrs Per Day: 1.5 hours per day Patient and/or Family Agrees t: Yes Time/GCodes Time In: 1225 Time Out: 1240 Total Billed Treatment Time: 15 Total Billed Treatment 1, EX (15m) LE PUGA PTA Sep 18, 2021 12:42
[2021-09-18] MEDS: TAMSULOSIN 0.4 MG (FLOMAX) CAP PO SCH (16:59)
[2021-09-18] MEDS ORDERED: LIDOCAINE UROJET 2% GEL 10 ML PKG ONE (19:13)
[2021-09-18 19:58] VITALS: BP 124/73
[2021-09-18] MEDS: ROSUVASTATIN 20 MG (CRESTOR) TABLET PO SCH (20:31)
[2021-09-18] MEDS: ACETAMINOPHEN 325 MG TABLET PO PRN (20:31)
[2021-09-19] MEDS: CEFEPIME INJECTION 1,000 MG in NS (IVPB) 50 ML IV SCH ×4 (04:07→22:17)
[2021-09-19] MEDS: inSUlin ASPART (NovoLOG) 1 UNIT/0.01 ML (CHARGE PER UNIT) SC SCH ×4 (06:00→21:05)
[2021-09-19] MEDS: SUCRALFATE 1 GM (CARAFATE) TAB PO SCH ×4 (06:37→21:03)
[2021-09-19] MEDS: BETHANECHOL 25 MG (URECHOLINE) TAB PO SCH ×4 (06:37→21:04)
[2021-09-19 07:04] VITALS: BP 124/70
--- NOTE | 2021-09-19 07:33 | PM&R Progress Note ---
Subjective HPI/CC On Admission Date Seen by Provider: Sep 19, 2021 Time Seen by Provider: 12:15 Subjective/Events-last exam 09/19/2021: Patient doing well Wants to go home Aguilar catheter was replaced Supportive care will continue 09/18/2021: Patient doing well Maintained on cefepime Voiding trial per urology No pain is reported 09/17/2021: Patient doing very well Eating and drinking Maintain on cefepime Dr. Gaston will do voiding trial tomorrow 09/16/2021: Patient doing really well Hep-Lock IV fluid Pseudomonas sensitivity not back yet Family training will be soon 09/15/2021: Patient doing better Fever defervesced Aguilar back in White count improved Pseudomonas UTI maintain on cefepime and DC vancomycin Will have family come in for training 09/14/2021: Pt is not feeling well today Fever noted Had to put aguilar back in last night Suspect UTI Chest x-ray will be obtained also [place] [address] Gaston regarding the consultation Cefepime and Vanc will be initiated to cover for pseudomonas and or enterococcus Zofran and IV fluid initiated 09/13/21: Pt is doing pretty well Will attempt to discontinue the catheter today. If he has retention it could be from the spinal cord injury and could very well require it to be indwelling. Labs reviewed Blood sugar is elevated from drinking orange juice all day 09/12/2021: Patient continues to improve No pain is reported Reviewed blood sugars Blood pressure stable 09/11/2021: Patient dramatically improved Loose stools still remain Patient denies pain Moving hands and feet very well 09/10/21: Patient doing remarkably well Gaining function with hands and feet Loose BM's Blood sugars 272 Checked meds and labs 09/09/2021: Patient doing well No pain is reported Blood sugars reviewed Blood pressure reviewed Able to feed himself 09/08/2021: Pt is doing well Eating well Able to feed himself with his right hand Loose stools will be given Imodium 09/07/2021: Pt is doing well Blood sugar is 127 Bowels are loose Coccyx has a decubitus ulcer and we will monitor that closely 09/06/2021: Pt is doing a lot better Hemoglobin was 10.2 Has a decubitus ulcer on his coccyx Low bp so holding Norvasc Pilar lift is being used 09/05/2021: Patient doing really well Requiring Pilar lift though Lovenox started today Blood sugars are variable 09/04/2021: Patient doing very well Requiring Pilar lift since he cannot use the sit to stand at this current time Moving his arms and hands better Blood sugar is a little bit elevated Blood pressure better Lovenox will be started tomorrow 09/03/2021: Pt is doing well Took a shower but then he couldn't really get back in bed Had some emesis so we'll start Protonix 40 mg BID and Carafate Aguilar cath remains due to retention 09/02/2021: Pt settling in well Holding all insulin due to hypoglycemia Had emesis last night Fed himself a bit today Keeping aguilar in for retention Review of Systems General: Fatigue, Malaise Musculoskeletal: neck pain Objective Exam Vital Signs Vital Signs Date Time Temp Pulse Resp B/P (MAP) Pulse Ox O2 Delivery O2 Flow Rate FiO2 09/19/21 09:00 Room Air 09/19/21 07:04 36.6 64 20 124/70 (88) 99 Capillary Refill : General Appearance: No Apparent Distress, WD/WN, Chronically ill, Obese HEENT: PERRL/EOMI, Normal ENT Inspection, Pharynx Normal Neck: Full Range of Motion, Normal Inspection, Non Tender, Supple, Carotid Bruit Respiratory: Chest Non Tender, Lungs Clear, Normal Breath Sounds, No Accessory Muscle Use, No Respiratory Distress Cardiovascular: Regular Rate, Rhythm, No Edema, No Gallop, No JVD, No Murmur, Normal Peripheral Pulses Gastrointestinal: Normal Bowel Sounds, No Organomegaly, No Pulsatile Mass, Non Tender, Soft Back: Normal Inspection, No CVA Tenderness, No Vertebral Tenderness, Decreased Range of Motion Extremity: Normal Capillary Refill, Normal Inspection, Normal Range of Motion, Non Tender, No Calf Tenderness, No Pedal Edema Neurologic/Psychiatric: Alert, Oriented x3, Normal Mood/Affect, Abnormal Gait, Motor Weakness Skin: Normal Color, Warm/Dry Lymphatic: No Adenopathy Results/Procedures Lab Patient resulted labs reviewed. FIM Transfers Therapy Code Descriptions/Definitions Functional [place] Measure: 0=Not Assessed/NA 4=Minimal Assistance 1=Total Assistance 5=Supervision or Setup 2=Maximal Assistance 6=Modified [place] 3=Moderate Assistance 7=Complete IndependenceSCALE: Activities may be completed with or without assistive devices. 1-Fxmgfwymwg-jcqikis completes the activity by him/herself with no assistance from a helper. 5-Set-up or Clean-up Assistance-helper sets up or cleans up; patient completes activity. [place] assists only prior to or following the activity. 4-Supervision or Touching Assistance-helper provides verbal cues and/or touching/steadying and/or contact guard assistance as patient completes activity. Assistance may be provided throughout the activity or intermittently. 3-Partial/Moderate Assistance-helper does LESS THAN HALF the effort. [place] lifts, holds or supports trunk or limbs, but provides less than half the effort. 2-Substantial/Maximal Assistance-helper does MORE THAN HALF the effort. [place] lifts or holds trunk or limbs and provides more than half the effort. 0-Thsuipkwx-wbsvar does ALL the effort. Patient does none of the effort to complete the activity. Or, the assistance of 2 or more helpers is required for the patient to complete the activity. If activity was not attempted, code reason: 7-Patient Refused. 9-Not Applicable-not attempted and the patient did not perform the activity before the current illness, exacerbation or injury. 10-Not Attempted due to Environmental Limitations-(lack of equipment, weather restraints, etc.). 88-Not Attempted due to Medical Conditions or Safety Concerns. Roll Left to Right (QC): 3 Sit to Lying (QC): 1 Sit to Stand (QC): 3 Chair/Ifs-ln-Eaffi Xfer(QC): 3 Car Transfer (QC): 88 Gait Training Does the Patient Walk?: No and Walking Goal NOT indicated Distance: 6'x3 Walk 10 feet (QC): 88 Walk 50 ft with 2 Turns(QC): 88 Walk 150 ft (QC): 88 Walking 10ft/uneven surface-QC: 88 Gait Persons Needed: 1 Gait Assistive Device: Parallel Bars Wheelchair Training Does the Pt Use a Wheelchair?: Yes Wheel 50 ft with 2 turns (QC): 3 Wheel 150 ft (QC): 3 Type of Wheelchair: Manual Stair Training 1 Step (curb) (QC): 88 4 Steps (QC): 88 12 Steps (QC): 88 Balance Picking up an Object (QC): 88 ADL-Treatment Eating (QC): 5 Oral Hygiene (QC): 4 Shower/Bathe Self (QC): 1 Upper Body Dressing (QC): 2 Lower Body Dressing (QC): 1 On/Off Footwear (QC): 3 Toileting Hygiene (QC): 1 Toilet Transfer (QC): 1 Assessment/Plan Assessment and Plan Assess & Plan/Chief Complaint Assessment: 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 Diabetes [id number] Hypertension Hyperlipidemia Previous CVA with right-sided weakness Coccyx decubitus ulcers Pseudomonas UTI status post SIRS Plan: Aggressive therapy Pain control Monitor bowel function Insulin 09/02/2021: Supportive care Aggressive therapy Hold insulin 09/03/2021: Supportive care Cervical spine collar Aguilar catheter 09/04/2021: Supportive care Cervical spine collar Aguilar catheter Pilar lift We'll start Lovenox tomorrow 09/05/2021: Supportive care Lovenox Maintain Aguilar 09/06/2021: Maintain Aguilar Continues to be Pilar lift 09/07/2021: Coccyx decubitus ulcer management 09/08/2021: Imodium for loose stools Continue to progress 09/09/2021: Imodium for loose stools Supportive care 09/10/2021: Supportive care Dramatic improvement 09/11/2021: Supportive care We will attempt to DC Aguilar catheter this week 09/12/2021: Attempt to DC Aguilar catheter Supportive care 09/13/21: Voiding trial Monitor sugar 09/14/2021: Empiric antibiotics Urology consultation 09/15/2021: DC vancomycin Maintain cefepime 09/16/2021: Maintain cefepime Supportive care Hep-Lock IV fluid 09/17/2021: Maintain antibiotics 09/18/2021: Supportive care Antibiotics 09/19/2021: Supportive care Antibiotics (1) Cervical spine syndrome (2) Myoclonus (3) Type 2 diabetes mellitus without complication (4) Primary hypertension (5) Mixed hyperlipidemia (6) History of CVA with residual deficit (7) Right sided weakness (8) Cervical cord myelomalacia (9) Spinal cord contusion (10) Fall Status: Acute JAMESSHAYNE DO Sep 19, 2021 07:33
[2021-09-19] MEDS: ENOXAPARIN 40 MG/0.4 ML (LOVENOX) SYR SC SCH (07:53)
[2021-09-19] MEDS: meTOprolol TARTRATE 25 MG (LOPRESSOR) TABLET PO SCH ×2 (07:53→21:04)
[2021-09-19] MEDS: PANTOPRAZOLE 40 MG (PROTONIX) TAB PO SCH ×2 (07:53→21:04)
[2021-09-19] MEDS: amLODIPine 5 MG (NORVASC) TAB PO SCH (07:53)
[2021-09-19] MEDS: HYDROCORTISONE 1% CREAM 30 GM TUBE TOP SCH ×2 (07:54→21:14)
[2021-09-19] MEDS: TAMSULOSIN 0.4 MG (FLOMAX) CAP PO SCH (17:34)
[2021-09-19 19:31] VITALS: BP 125/71
[2021-09-19] MEDS: ROSUVASTATIN 20 MG (CRESTOR) TABLET PO SCH (21:04)
[2021-09-19] MEDS: ACETAMINOPHEN 325 MG TABLET PO PRN (21:09)
[2021-09-20] MEDS: CEFEPIME INJECTION 1,000 MG in NS (IVPB) 50 ML IV SCH ×2 (04:13→10:12)
--- NOTE | 2021-09-20 05:37 | PM&R Progress Note ---
Subjective HPI/CC On Admission Date Seen by Provider: Sep 20, 2021 Time Seen by Provider: 10:30 Subjective/Events-last exam 09/20/2021: Pt doing pretty well Walked with 3 assistants with a walker today Aguilar is back in Increasing Urecholine 50mg TID and Flomax BID Labs remain stable Last day of Cefepime today 09/19/2021: Patient doing well Wants to go home Aguilar catheter was replaced Supportive care will continue 09/18/2021: Patient doing well Maintained on cefepime Voiding trial per urology No pain is reported 09/17/2021: Patient doing very well Eating and drinking Maintain on cefepime Dr. Gaston will do voiding trial tomorrow 09/16/2021: Patient doing really well Hep-Lock IV fluid Pseudomonas sensitivity not back yet Family training will be soon 09/15/2021: Patient doing better Fever defervesced Aguilar back in White count improved Pseudomonas UTI maintain on cefepime and DC vancomycin Will have family come in for training 09/14/2021: Pt is not feeling well today Fever noted Had to put aguilar back in last night Suspect UTI Chest x-ray will be obtained [place] [id number] Gaston regarding the consultation Cefepime and Vanc will be initiated to cover for pseudomonas and or enterococcus Zofran and IV fluid initiated 09/13/21: Pt is doing pretty well Will attempt to discontinue the catheter today. If he has retention it could be from the spinal cord injury and could very well require it to be indwelling. Labs reviewed Blood sugar is elevated from drinking orange juice all day 09/12/2021: Patient continues to improve No pain is reported Reviewed blood sugars Blood pressure stable 09/11/2021: Patient dramatically improved Loose stools still remain Patient denies pain Moving hands and feet very well 09/10/21: Patient doing remarkably well Gaining function with hands and feet Loose BM's Blood sugars 272 Checked meds and labs 09/09/2021: Patient doing well No pain is reported Blood sugars reviewed Blood pressure reviewed Able to feed himself 09/08/2021: Pt is doing well Eating well Able to feed himself with his right hand Loose stools will be given Imodium 09/07/2021: Pt is doing well Blood sugar is 127 Bowels are loose Coccyx has a decubitus ulcer and we will monitor that closely 09/06/2021: Pt is doing a lot better Hemoglobin was 10.2 Has a decubitus ulcer on his coccyx Low bp so holding Norvasc Pilar lift is being used 09/05/2021: Patient doing really well Requiring Pilar lift though Lovenox started today Blood sugars are variable 09/04/2021: Patient doing very well Requiring Pilar lift since he cannot use the sit to stand at this current time Moving his arms and hands better Blood sugar is a little bit elevated Blood pressure better Lovenox will be started tomorrow 09/03/2021: Pt is doing well Took a shower but then he couldn't really get back in bed Had some emesis so we'll start Protonix 40 mg BID and Carafate Aguilar cath remains due to retention 09/02/2021: Pt settling in well Holding all insulin due to hypoglycemia Had emesis last night Fed himself a bit today Keeping aguilar in for retention Review of Systems General: Fatigue, Malaise Neurological: Weakness, Incoordination Objective Exam Vital Signs Vital Signs Date Time Temp Pulse Resp B/P (MAP) Pulse Ox O2 Delivery O2 Flow Rate FiO2 09/20/21 20:30 Room Air 09/20/21 19:37 37.0 68 16 143/72 (95) 97 Capillary Refill : General Appearance: No Apparent Distress, WD/WN, Chronically ill, Obese HEENT: PERRL/EOMI, Normal ENT Inspection, Pharynx Normal Neck: Full Range of Motion, Normal Inspection, Non Tender, Supple, Carotid Bruit Respiratory: Chest Non Tender, Lungs Clear, Normal Breath Sounds, No Accessory Muscle Use, No Respiratory Distress Cardiovascular: Regular Rate, Rhythm, No Edema, No Gallop, No JVD, No Murmur, Normal Peripheral Pulses Gastrointestinal: Normal Bowel Sounds, No Organomegaly, No Pulsatile Mass, Non Tender, Soft Back: Normal Inspection, No CVA Tenderness, No Vertebral Tenderness, Decreased Range of Motion Extremity: Normal Capillary Refill, Normal Inspection, Normal Range of Motion, Non Tender, No Calf Tenderness, No Pedal Edema Neurologic/Psychiatric: Alert, Oriented x3, Normal Mood/Affect, Abnormal Gait, Motor Weakness Skin: Normal Color, Warm/Dry Lymphatic: No Adenopathy Results/Procedures Lab Laboratory Tests 09/20/21 06:00 Patient resulted labs reviewed. FIM Transfers Therapy Code Descriptions/Definitions Functional [place] Measure: 0=Not Assessed/NA 4=Minimal Assistance 1=Total Assistance 5=Supervision or Setup 2=Maximal Assistance 6=Modified [place] 3=Moderate Assistance 7=Complete IndependenceSCALE: Activities may be completed with or without assistive devices. 2-Nejppwlrkb-kpdgltn completes the activity by him/herself with no assistance from a helper. 5-Set-up or Clean-up Assistance-helper sets up or cleans up; patient completes activity. [place] assists only prior to or following the activity. 4-Supervision or Touching Assistance-helper provides verbal cues and/or touching/steadying and/or contact guard assistance as patient completes activ ity. Assistance may be provided throughout the activity or intermittently. 3-Partial/Moderate Assistance-helper does LESS THAN HALF the effort. [place] lifts, holds or supports trunk or limbs, but provides less than half the effort. 2-Substantial/Maximal Assistance-helper does MORE THAN HALF the effort. [place] lifts or holds trunk or limbs and provides more than half the effort. 1-Eqeqgruyq-nuidct does ALL the effort. Patient does none of the effort to complete the activity. Or, the assistance of 2 or more helpers is required for the patient to complete the activity. If activity was not attempted, code reason: 7-Patient Refused. 9-Not Applicable-not attempted and the patient did not perform the activity before the current illness, exacerbation or injury. 10-Not Attempted due to Environmental Limitations-(lack of equipment, weather restraints, etc.). 88-Not Attempted due to Medical Conditions or Safety Concerns. Roll Left to Right (QC): 3 Sit to Lying (QC): 1 Sit to Stand (QC): 3 Chair/Xyc-wk-Xxzew Xfer(QC): 3 Car Transfer (QC): 88 Gait Training Does the Patient Walk?: No and Walking Goal NOT indicated Distance: 6'x3 Walk 10 feet (QC): 88 Walk 50 ft with 2 Turns(QC): 88 Walk 150 ft (QC): 88 Walking 10ft/uneven surface-QC: 88 Gait Persons Needed: 1 Gait Assistive Device: Parallel Bars Wheelchair Training Does the Pt Use a Wheelchair?: Yes Wheel 50 ft with 2 turns (QC): 3 Wheel 150 ft (QC): 3 Type of Wheelchair: Manual Stair Training 1 Step (curb) (QC): 88 4 Steps (QC): 88 12 Steps (QC): 88 Balance Picking up an Object (QC): 88 ADL-Treatment Eating (QC): 5 Oral Hygiene (QC): 4 Shower/Bathe Self (QC): 1 Upper Body Dressing (QC): 2 Lower Body Dressing (QC): 1 On/Off Footwear (QC): 3 Toileting Hygiene (QC): 1 Toilet Transfer (QC): 1 Assessment/Plan Assessment and Plan Assess & Plan/Chief Complaint Assessment: 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 Diabetes wkr-py-oupiazd Hypertension Hyperlipidemia Previous CVA with right-sided weakness Coccyx decubitus ulcers Pseudomonas UTI status post SIRS completed treatment with cefepime 09/20/2021 Plan: Aggressive therapy Pain control Monitor bowel function Insulin 09/02/2021: Supportive care Aggressive therapy Hold insulin 09/03/2021: Supportive care Cervical spine collar Aguilar catheter 09/04/2021: Supportive care Cervical spine collar Aguilar catheter Pilar lift We'll start Lovenox tomorrow 09/05/2021: Supportive care Lovenox Maintain Aguilar 09/06/2021: Maintain Aguilar Continues to be Pilar lift 09/07/2021: Coccyx decubitus ulcer management 09/08/2021: Imodium for loose stools Continue to progress 09/09/2021: Imodium for loose stools Supportive care 09/10/2021: Supportive care Dramatic improvement 09/11/2021: Supportive care We will attempt to DC Aguilar catheter this week 09/12/2021: Attempt to DC Aguilar catheter Supportive care 09/13/21: Voiding trial Monitor sugar 09/14/2021: Empiric antibiotics Urology consultation 09/15/2021: DC vancomycin Maintain cefepime 09/16/2021: Maintain cefepime Supportive care Hep-Lock IV fluid 09/17/2021: Maintain antibiotics 09/18/2021: Supportive care Antibiotics 09/19/2021: Supportive care Antibiotics 09/20/2021: Completed cefepime Appreciate urology (1) Cervical spine syndrome (2) Myoclonus (3) Type 2 diabetes mellitus without complication (4) Primary hypertension (5) Mixed hyperlipidemia (6) History of CVA with residual deficit (7) Right sided weakness (8) Cervical cord myelomalacia (9) Spinal cord contusion (10) Fall Status: Acute SHAYNE JAMES DO Sep 20, 2021 05:37
[2021-09-20] MEDS: BETHANECHOL 25 MG (URECHOLINE) TAB PO SCH ×4 (06:01→21:11)
[2021-09-20] MEDS: inSUlin ASPART (NovoLOG) 1 UNIT/0.01 ML (CHARGE PER UNIT) SC SCH ×4 (06:01→21:12)
[2021-09-20] MEDS: SUCRALFATE 1 GM (CARAFATE) TAB PO SCH ×4 (06:01→21:11)
[2021-09-20 06:36] LABS: BASOPHILS % (AUTO) 0 % (0-10); EOSINOPHILS # (AUTO) 0.3 10^3/uL (0.0-0.3); EOSINOPHILS % (AUTO) 5 % (0-10); HEMATOCRIT 31 % (40-54); HEMOGLOBIN 10.3 g/dL (13.3-17.7); LYMPHOCYTES # (AUTO) 1.5 10^3/uL (1.0-4.0); LYMPHOCYTES % (AUTO) 24 % (12-44); MEAN CORPUSCULAR HEMOGLOBIN 29 pg (25-34); MEAN CORPUSCULAR HGB CONC 33 g/dL (32-36); MEAN CORPUSCULAR VOLUME 87 fL (80-99); MEAN PLATELET VOLUME 9.5 fL (9.0-12.2); MONOCYTES # (AUTO) 0.6 10^3/uL (0.0-1.0); MONOCYTES % (AUTO) 9 % (0-12); NEUTROPHILS # (AUTO) 3.9 10^3/uL (1.8-7.8); NEUTROPHILS % (AUTO) 61 % (42-75); PLATELET COUNT 178 10^3/uL (130-400); WHITE BLOOD COUNT 6.3 10^3/uL (4.3-11.0)
[2021-09-20 06:54] LABS: ALBUMIN 2.7 GM/DL (3.2-4.5)
[2021-09-20 06:55] LABS: POTASSIUM 3.4 MMOL/L (3.6-5.0)
[2021-09-20 06:56] LABS: CALCIUM 8.9 MG/DL (8.5-10.1)
[2021-09-20 06:57] LABS: TOTAL PROTEIN 6.1 GM/DL (6.4-8.2)
[2021-09-20 06:59] LABS: BILIRUBIN,TOTAL 0.2 MG/DL (0.1-1.0)
[2021-09-20 07:01] LABS: CREATININE SERUM 0.86 MG/DL (0.60-1.30)
[2021-09-20 07:21] VITALS: BP 117/57
[2021-09-20] MEDS: meTOprolol TARTRATE 25 MG (LOPRESSOR) TABLET PO SCH ×2 (07:50→21:11)
[2021-09-20] MEDS: PANTOPRAZOLE 40 MG (PROTONIX) TAB PO SCH ×2 (07:50→21:11)
[2021-09-20] MEDS: ENOXAPARIN 40 MG/0.4 ML (LOVENOX) SYR SC SCH (07:50)
--- NOTE | 2021-09-20 08:55 | Physical Therapy Daily Note ---
PT Daily Note-Current Subjective Patient sitting EOB pre tx, already working with OT, has no complaints of pain but does have pain in left arm with WC mobility Appearance Patient in bed post tx with nurse call, phone, tray, all needs met, will continue to work with OT for a bit. Mental Status Patient Orientation: Person, Unable to Assess Attachments: Tyson Catheter cervical collar Transfers SCALE: Activities may be completed with or without assistive devices. 9-Ovnewfrwka-bxtzolr completes the activity by him/herself with no assistance from a helper. 5-Set-up or Clean-up Assistance-helper sets up or cleans up; patient completes activity. [place] assists only prior to or following the activity. 4-Supervision or Touching Assistance-helper provides verbal cues and/or touching/steadying and/or contact guard assistance as patient completes activity. Assistance may be provided throughout the activity or intermittently. 3-Partial/Moderate Assistance-helper does LESS THAN HALF the effort. [place] lifts, holds or supports trunk or limbs, but provides less than half the effort. 2-Substantial/Maximal Assistance-helper does MORE THAN HALF the effort. [place] lifts or holds trunk or limbs and provides more than half the effort. 0-Xdtyhmhao-yddwzg does ALL the effort. Patient does none of the effort to complete the activity. Or, the assistance of 2 or more helpers is required for the patient to complete the activity. If activity was not attempted, code reason: 7-Patient Refused. 9-Not Applicable-not attempted and the patient did not perform the activity before the current illness, exacerbation or injury. 10-Not Attempted due to Environmental Limitations-(lack of equipment, weather restraints, etc.). 88-Not Attempted due to Medical Conditions or Safety Concerns. Sit to Lying (QC): 4 Sit to Stand (QC): 3 Chair/Yve-fu-Szhmh Xfer(QC): 3 Gait Training Distance: 20'x3 Walk 10 feet (QC): 3 Gait Persons Needed: 1 Gait Assistive Device: FWW mod assist, WC follow, uncoordinated steps, leans to the right side, needs assist guiding walker Wheelchair Training Does the Pt Use a Wheelchair?: Yes Wheel 50 ft with 2 turns (QC): 3 Wheel 150 ft (QC): 3 Type of Wheelchair: Manual 300', used right arm and leg, needed several rest breaks Treatments PT performed bed mobility and transfers, ambulation, WC mobility, OT performed UE positioning and safety, safety cues Assessment Current Status: Fair Progress improving LE strength and control, he was able to ambulate using a rolling walker for the first time today PT Short Term Goals Short Term Goals Time Frame: Sep 08, 2021 Roll Left & Right: 4 Sit to lyin Lying to sitting on side of be: 3 Sit to stand: 2 Chair/qii-af-wtazw transfer: 2 PT Care Manager Goals Care Manager Goals PT Mcc Goals Time Frame: Sep 22, 2021 Roll Left & Right (QC): 4 Sit to Lying (QC): 4 Lying-Sitting on Side/Bed(QC): 4 Sit to Stand (QC): 3 Chair/Uzy-fr-Dfdon Xfer(QC): 3 Toilet Transfer (QC): 3 Car Transfer (QC): 3 Does the Patient Walk: No and Walking Goal NOT indicated Walk 10 feet (QC): 88 Walk 50ft with 2 Turns (QC): 88 Walk 150 ft (QC): 88 Walking 10ft on Uneven Surface: 88 1 Step (curb) (QC): 88 4 Steps (QC): 88 12 Steps (QC): 88 Picking up an Object (QC): 3 Does the Pt use WC or Scooter?: Yes Wheel 50 feet with 2 turns (QC: 3 Type: Manual Wheel 150 feet: 3 Type: Manual PT Plan Problem List Problem List: Activity Tolerance, Functional Strength, Safety, Balance, Gait, Transfer, Bed Mobility, ROM Treatment/Plan Treatment Plan: Continue Plan of Care Treatment Plan: Bed Mobility, Education, Functional Activity Sara, Functional Strength, Group Therapy, Safety, Therapeutic Exercise, Transfers Treatment Duration: Sep 13, 2021 Frequency: At least 5 of 7 days/Wk (IRF) Estimated Hrs Per Day: 1.5 hours per day Patient and/or Family Agrees t: Yes Safety Risks/Education Patient Education: Gait Training, Transfer Techniques, Correct Positioning, Safety Issues Teaching Recipient: Patient Teaching Methods: Demonstration, Discussion Response to Teaching: Reinforcement Needed Time/GCodes Time In: 0800 Time Out: 0900 Total Billed Treatment Time: 60 Total Billed Treatment 1 visit FA 60' co-treated for 60' VERONICA MONIQUE PT Sep 20, 2021 08:55
--- NOTE | 2021-09-20 09:12 | Occupational Ther Daily Note ---
OT Current Status-Daily Note Subjective Pt awake, agreeable to treatment. Co-treat with PT for part of session (0800- 0900) due to need of 2 skilled clinicians to progress indep and safety with adls and mobility Appearance Pt returned to supine in bed, all needs within reach. Mental Status/Objective Attachments: IV ADL-Treatment Therapy Code Descriptions/Definitions Functional [place] Measure: 0=Not Assessed/NA 4=Minimal Assistance 1=Total Assistance 5=Supervision or Setup 2=Maximal Assistance 6=Modified [place] 3=Moderate Assistance 7=Complete IndependenceSCALE: Activities may be completed with or without assistive devices. 1-Uvcmncsivk-xnivsyq completes the activity by him/herself with no assistance from a helper. 5-Set-up or Clean-up Assistance-helper sets up or cleans up; patient completes activity. [place] assists only prior to or following the activity. 4-Supervision or Touching Assistance-helper provides verbal cues and/or touching/steadying and/or contact guard assistance as patient completes activity. Assistance may be provided throughout the activity or intermittently. 3-Partial/Moderate Assistance-helper does LESS THAN HALF the effort. [place] lifts, holds or supports trunk or limbs, but provides less than half the effort. 2-Substantial/Maximal Assistance-helper does MORE THAN HALF the effort. [place] lifts or holds trunk or limbs and provides more than half the effort. 4-Hkbnihgav-cnzecm does ALL the effort. Patient does none of the effort to complete the activity. Or, the assistance of 2 or more helpers is required for the patient to complete the activity. If activity was not attempted, code reason: 7-Patient Refused. 9-Not Applicable-not attempted and the patient did not perform the activity before the current illness, exacerbation or injury. 10-Not Attempted due to Environmental Limitations-(lack of equipment, weather restraints, etc.). 88-Not Attempted due to Medical Conditions or Safety Concerns. Eating (QC): 5 Shower/Bathe Self (QC): 3 Upper Body Dressing (QC): 3 Lower Body Dressing (QC): 1 On/Off Footwear: 3 Toileting Hygiene (QC): 1 Pt reclined in bed at OT arrival. Incontinent of bowels; contained in brief. Pt able to roll R/L without assist this date. Dependent for latonya care. Supine>sit: Min a to elevate torso. Pt declined shower, agreeable to sponge bath at edge of bed. Pt able to wash all upper body without assist this date. Intermittent Min a for balance as he reached forward to wash down to mid calf. Assist to lift foot in order for patient to reach/wash. Assist for thoroughness. Buttocks washed at bed level, prior to sitting up. Pt able to thread BUE's through sleeves of shirt, cues to pull completely over elbow. Assist to bring overhead and over neck brace. Anticipate less assistance would be needed if patient had larger/looser clothing. CGA-Min a for balance as he reached forward to thread BLE's into brief. Min a to lift and thread RLE. Mod a to stand x1, second person needed for clothing management as pt required BUE support on walker. Mod-max a to don socks over toes/heels due to tight fit, bulky bandage on heels and sock getting caught on toe nails. Improved use of BUE's throughout task. Other Treatment Pt ambulated 20 x3 with walker, min-mod a x1 and cga of second person for safety. W/c follow behind from a 3rd person. Min a with management of walker. Cues for step length and slowing speed as pt still with uncoordinated steps. Lengthy rest break after each bout. Pt requests to return to bed vs chair this date. Sit>supine: sba-cga. While in bed, pt performed AROM/AAROM exercises with L hand/digits in order to improve bilingual student tutor/pinch strength needed for bilateral FM coordination tasks. Education OT Patient Education: Correct positioning, Energy conservation, Modified ADL techniques, Progress toward Goal/Update tx plan, Purpose of tx/functional activities, Safety issues, Transfer techniques, W/C management Teaching Recipient: Patient Teaching Methods: Demonstration, Discussion Response to Teaching: Verbalize Understanding, Return Demonstration, Reinforcement Needed OT Short Term Goals Short Term Goals Time Frame: Sep 22, 2021 Toileting hygiene: 2 Shower/bathe self: 2 Upper body dressin Lower body dressin Putting on/taking off footwear: 3 OT Cyber Incident Analyst Goals Mcc Goals Time Frame: Oct 01, 2021 Eating (QC): 5 Oral Hygiene (QC): 6 Toileting Hygiene (QC): 4 Shower/Bathe Self (QC): 4 Upper Body Dressing (QC): 5 Lower Body Dressing (QC): 4 On/Off Footwear (QC): 4 Additional Goals: 1-Demonstrate ADL Tasks, 2-Verbalize Understanding, 3- ImproveStrength/Sara 1=Demonstrate adherence to instructed precautions during ADL tasks. 2=Patient will verbalize/demonstrate understanding of assistive devices/modifications for ADL. 3=Patient will improve strength/tolerance for activity to enable patient to perform ADL's. OT Education/Plan Problem List/Assessment Assessment: Decreased Activ Tolerance, Decreased Safety Aware, Decreased UE Strength, Impaired Coordination, Impaired Funct Balance, Impaired I ADL's, Impaired Self-Care Skills, Restricted Funct UE ROM Discharge Recommendations Plan/Recommendations: Continue POC Treatment Plan/Plan of Care Treatment,Training & Education: Yes Patient would benefit from OT for education, treatment and training to promote independence in ADL's, mobility, safety and/or upper extremity function for ADL's. Plan of Care: ADL Retraining, Functional Mobility, Group Exercise/Act as Ind, UE Funct Exercise/Act, UE Neuromus Re-Ed/Coord Treatment Duration: Oct 01, 2021 Frequency: At least 5 of 7 days/Wk (IRF) Estimated Hrs Per Day: 1.5 hours per day Agreement: Yes Rehab Potential: Fair Time/GCodes Start Time: 07:40 Stop Time: 09:10 Total Time Billed (hr/min): 90 Billed Treatment Time 1 visit ADL x3 (40 min) FA x2 (35 min) EX (15 min) Nisreen Lowe OT Sep 20, 2021 09:12
[2021-09-20] MEDS: amLODIPine 5 MG (NORVASC) TAB PO SCH (09:17)
[2021-09-20] MEDS: TAMSULOSIN 0.4 MG (FLOMAX) CAP PO SCH ×2 (10:11→21:12)
[2021-09-20] MEDS: HYDROCORTISONE 1% CREAM 30 GM TUBE TOP SCH ×2 (10:12→21:12)
--- NOTE | 2021-09-20 10:59 | Physical Therapy Daily Note ---
PT Daily Note-Current Subjective Patient in bed pre tx, agrees to PT, has no complaints of pain at rest. Appearance Patient in bed post tx with nurse call, phone, tray, all needs met. Mental Status Patient Orientation: Person, Unable to Assess Attachments: Tyson Catheter cervical collar Transfers SCALE: Activities may be completed with or without assistive devices. 8-Qdwmtmmphs-xqktics completes the activity by him/herself with no assistance from a helper. 5-Set-up or Clean-up Assistance-helper sets up or cleans up; patient completes activity. [place] assists only prior to or following the activity. 4-Supervision or Touching Assistance-helper provides verbal cues and/or touching/steadying and/or contact guard assistance as patient completes activity. Assistance may be provided throughout the activity or intermittently. 3-Partial/Moderate Assistance-helper does LESS THAN HALF the effort. [place] lifts, holds or supports trunk or limbs, but provides less than half the effort. 2-Substantial/Maximal Assistance-helper does MORE THAN HALF the effort. [place] lifts or holds trunk or limbs and provides more than half the effort. 2-Hmtlafiyi-odqypo does ALL the effort. Patient does none of the effort to complete the activity. Or, the assistance of 2 or more helpers is required for the patient to complete the activity. If activity was not attempted, code reason: 7-Patient Refused. 9-Not Applicable-not attempted and the patient did not perform the activity before the current illness, exacerbation or injury. 10-Not Attempted due to Environmental Limitations-(lack of equipment, weather restraints, etc.). 88-Not Attempted due to Medical Conditions or Safety Concerns. Exercises Supine Ex: Bridging, Ankle pumps, Quad Set, Glut sets, Heel Slides, Short Arc Quads, Straight leg raise (AAROM), Hip abd/add (AAROM) Supine Reps: 20 BLE stretching Treatments LE strengthening/stretching Assessment Current Status: Fair Progress improving AROM and LE strength, still has increased extensor tone in BLE PT Short Term Goals Short Term Goals Time Frame: Sep 08, 2021 Roll Left & Right: 4 Sit to lyin Lying to sitting on side of be: 3 Sit to stand: 2 Chair/mgm-wj-gknip transfer: 2 PT Mcc Goals Care Rep Goals PT Care Rep Goals Time Frame: Sep 22, 2021 Roll Left & Right (QC): 4 Sit to Lying (QC): 4 Lying-Sitting on Side/Bed(QC): 4 Sit to Stand (QC): 3 Chair/Pwd-li-Gbxvu Xfer(QC): 3 Toilet Transfer (QC): 3 Car Transfer (QC): 3 Does the Patient Walk: No and Walking Goal NOT indicated Walk 10 feet (QC): 88 Walk 50ft with 2 Turns (QC): 88 Walk 150 ft (QC): 88 Walking 10ft on Uneven Surface: 88 1 Step (curb) (QC): 88 4 Steps (QC): 88 12 Steps (QC): 88 Picking up an Object (QC): 3 Does the Pt use WC or Scooter?: Yes Wheel 50 feet with 2 turns (QC: 3 Type: Manual Wheel 150 feet: 3 Type: Manual PT Plan Problem List Problem List: Activity Tolerance, Functional Strength, Safety, Balance, Gait, Transfer, Bed Mobility, ROM Treatment/Plan Treatment Plan: Continue Plan of Care Treatment Plan: Bed Mobility, Education, Functional Activity Sara, Functional Strength, Group Therapy, Safety, Therapeutic Exercise, Transfers Treatment Duration: Sep 13, 2021 Frequency: At least 5 of 7 days/Wk (IRF) Estimated Hrs Per Day: 1.5 hours per day Patient and/or Family Agrees t: Yes Safety Risks/Education Patient Education: Correct Positioning, Safety Issues Teaching Recipient: Patient Teaching Methods: Demonstration, Discussion Response to Teaching: Reinforcement Needed Time/GCodes Time In: 1000 Time Out: 1030 Total Billed Treatment Time: 30 Total Billed Treatment 1 visit EX 30' VERONICA MONIQUE PT Sep 20, 2021 10:59
[2021-09-20 19:37] VITALS: BP 143/72
[2021-09-20] MEDS: ROSUVASTATIN 20 MG (CRESTOR) TABLET PO SCH (21:12)
[2021-09-21] MEDS: SUCRALFATE 1 GM (CARAFATE) TAB PO SCH ×4 (05:33→21:14)
[2021-09-21] MEDS: BETHANECHOL 25 MG (URECHOLINE) TAB PO SCH ×4 (05:33→21:16)
[2021-09-21] MEDS: inSUlin ASPART (NovoLOG) 1 UNIT/0.01 ML (CHARGE PER UNIT) SC SCH ×4 (05:36→21:12)
--- NOTE | 2021-09-21 06:14 | PM&R Progress Note ---
Subjective HPI/CC On Admission Date Seen by Provider: Sep 21, 2021 Time Seen by Provider: 08:45 Subjective/Events-last exam 09/21/2021: Pt doing dramatically better Weight-bearing and walking today with 2 assists Gave a morale boost for him now that he was able to walk 09/20/2021: Pt doing pretty well Walked with 3 assistants with a walker today Aguilar is back in Increasing Urecholine 50mg TID and Flomax BID Labs remain stable Last day of Cefepime today 09/19/2021: Patient doing well Wants to go home Aguilar catheter was replaced Supportive care will continue 09/18/2021: Patient doing well Maintained on cefepime Voiding trial per urology No pain is reported 09/17/2021: Patient doing very well Eating and drinking Maintain on cefepime Dr. Gaston will do voiding trial tomorrow 09/16/2021: Patient doing really well Hep-Lock IV fluid Pseudomonas sensitivity not back yet Family training will be soon 09/15/2021: Patient doing better Fever defervesced Aguilar back in White count improved Pseudomonas UTI maintain on cefepime and DC vancomycin Will have family come in for training 09/14/2021: Pt is not feeling well today Fever noted Had to put aguilar back in last night Suspect UTI Chest x-ray will be obtained also [place] [address] Gaston regarding the consultation Cefepime and Vanc will be initiated to cover for pseudomonas and or enterococcus Zofran and IV fluid initiated 09/13/21: Pt is doing pretty well Will attempt to discontinue the catheter today. If he has retention it could be from the spinal cord injury and could very well require it to be indwelling. Labs reviewed Blood sugar is elevated from drinking orange juice all day 09/12/2021: Patient continues to improve No pain is reported Reviewed blood sugars Blood pressure stable 09/11/2021: Patient dramatically improved Loose stools still remain Patient denies pain Moving hands and feet very well 09/10/21: Patient doing remarkably well Gaining function with hands and feet Loose BM's Blood sugars 272 Checked meds and labs 09/09/2021: Patient doing well No pain is reported Blood sugars reviewed Blood pressure reviewed Able to feed himself 09/08/2021: Pt is doing well Eating well Able to feed himself with his right hand Loose stools will be given Imodium 09/07/2021: Pt is doing well Blood sugar is 127 Bowels are loose Coccyx has a decubitus ulcer and we will monitor that closely 09/06/2021: Pt is doing a lot better Hemoglobin was 10.2 Has a decubitus ulcer on his coccyx Low bp so holding Norvasc Pilar lift is being used 09/05/2021: Patient doing really well Requiring Pilar lift though Lovenox started today Blood sugars are variable 09/04/2021: Patient doing very well Requiring Pilar lift since he cannot use the sit to stand at this current time Moving his arms and hands better Blood sugar is a little bit elevated Blood pressure better Lovenox will be started tomorrow 09/03/2021: Pt is doing well Took a shower but then he couldn't really get back in bed Had some emesis so we'll start Protonix 40 mg BID and Carafate Aguilar cath remains due to retention 09/02/2021: Pt settling in well Holding all insulin due to hypoglycemia Had emesis last night Fed himself a bit today Keeping aguilar in for retention Review of Systems General: Fatigue, Malaise Objective Exam Vital Signs Vital Signs Date Time Temp Pulse Resp B/P (MAP) Pulse Ox O2 Delivery O2 Flow Rate FiO2 09/21/21 21:25 Room Air 09/21/21 19:55 36.4 69 20 117/59 (78) 99 Capillary Refill : General Appearance: No Apparent Distress, WD/WN, Chronically ill, Obese HEENT: PERRL/EOMI, Normal ENT Inspection, Pharynx Normal Neck: Full Range of Motion, Normal Inspection, Non Tender, Supple, Carotid Bruit Respiratory: Chest Non Tender, Lungs Clear, Normal Breath Sounds, No Accessory Muscle Use, No Respiratory Distress Cardiovascular: Regular Rate, Rhythm, No Edema, No Gallop, No JVD, No Murmur, Normal Peripheral Pulses Gastrointestinal: Normal Bowel Sounds, No Organomegaly, No Pulsatile Mass, Non Tender, Soft Back: Normal Inspection, No CVA Tenderness, No Vertebral Tenderness, Decreased Range of Motion Extremity: Normal Capillary Refill, Normal Inspection, Normal Range of Motion, Non Tender, No Calf Tenderness, No Pedal Edema Neurologic/Psychiatric: Alert, Oriented x3, Normal Mood/Affect, Abnormal Gait, Motor Weakness Skin: Normal Color, Warm/Dry Lymphatic: No Adenopathy Results/Procedures Lab Patient resulted labs reviewed. FIM Transfers Therapy Code Descriptions/Definitions Functional [place] Measure: 0=Not Assessed/NA 4=Minimal Assistance 1=Total Assistance 5=Supervision or Setup 2=Maximal Assistance 6=Modified [place] 3=Moderate Assistance 7=Complete IndependenceSCALE: Activities may be completed with or without assistive devices. 3-Bkvibjgrgk-poljjkm completes the activity by him/herself with no assistance from a helper. 5-Set-up or Clean-up Assistance-helper sets up or cleans up; patient completes activity. [place] assists only prior to or following the activity. 4-Supervision or Touching Assistance-helper provides verbal cues and/or touching/steadying and/or contact guard assistance as patient completes activity. Assistance may be provided throughout the activity or intermittently. 3-Partial/Moderate Assistance-helper does LESS THAN HALF the effort. [place] lifts, holds or supports trunk or limbs, but provides less than half the effort. 2-Substantial/Maximal Assistance-helper does MORE THAN HALF the effort. [place] lifts or holds trunk or limbs and provides more than half the effort. 9-Qjiboybaj-qdjrgn does ALL the effort. Patient does none of the effort to complete the activity. Or, the assistance of 2 or more helpers is required for the patient to complete the activity. If activity was not attempted, code reason: 7-Patient Refused. 9-Not Applicable-not attempted and the patient did not perform the activity before the current illness, exacerbation or injury. 10-Not Attempted due to Environmental Limitations-(lack of equipment, weather restraints, etc.). 88-Not Attempted due to Medical Conditions or Safety Concerns. Roll Left to Right (QC): 3 Sit to Lying (QC): 4 Sit to Stand (QC): 3 Chair/Krc-bl-Xvcgj Xfer(QC): 3 Car Transfer (QC): 88 Gait Training Does the Patient Walk?: No and Walking Goal NOT indicated Distance: 20'x3 Walk 10 feet (QC): 3 Walk 50 ft with 2 Turns(QC): 88 Walk 150 ft (QC): 88 Walking 10ft/uneven surface-QC: 88 Gait Persons Needed: 1 Gait Assistive Device: FWW Wheelchair Training Does the Pt Use a Wheelchair?: Yes Wheel 50 ft with 2 turns (QC): 3 Wheel 150 ft (QC): 3 Type of Wheelchair: Manual Stair Training 1 Step (curb) (QC): 88 4 Steps (QC): 88 12 Steps (QC): 88 Balance Picking up an Object (QC): 88 ADL-Treatment Eating (QC): 5 Oral Hygiene (QC): 4 Shower/Bathe Self (QC): 3 Upper Body Dressing (QC): 3 Lower Body Dressing (QC): 1 On/Off Footwear (QC): 3 Toileting Hygiene (QC): 1 Toilet Transfer (QC): 1 Assessment/Plan Assessment and Plan Assess & Plan/Chief Complaint Assessment: 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 Diabetes dca-pa-zwfuyvn Hypertension Hyperlipidemia Previous CVA with right-sided weakness Coccyx decubitus ulcers Pseudomonas UTI status post SIRS completed treatment with cefepime 09/20/2021 Plan: Aggressive therapy Pain control Monitor bowel function Insulin 09/02/2021: Supportive care Aggressive therapy Hold insulin 09/03/2021: Supportive care Cervical spine collar Aguilar catheter 09/04/2021: Supportive care Cervical spine collar Aguilar catheter Pilar lift We'll start Lovenox tomorrow 09/05/2021: Supportive care Lovenox Maintain Aguilar 09/06/2021: Maintain Aguilar Continues to be Pilar lift 09/07/2021: Coccyx decubitus ulcer management 09/08/2021: Imodium for loose stools Continue to progress 09/09/2021: Imodium for loose stools Supportive care 09/10/2021: Supportive care Dramatic improvement 09/11/2021: Supportive care We will attempt to DC Aguilar catheter this week 09/12/2021: Attempt to DC Aguilar catheter Supportive care 09/13/21: Voiding trial Monitor sugar 09/14/2021: Empiric antibiotics Urology consultation 09/15/2021: DC vancomycin Maintain cefepime 09/16/2021: Maintain cefepime Supportive care Hep-Lock IV fluid 09/17/2021: Maintain antibiotics 09/18/2021: Supportive care Antibiotics 09/19/2021: Supportive care Antibiotics 09/20/2021: Completed cefepime Appreciate urology 09/21/2021: Dramatic improvement Continue supportive care (1) Cervical spine syndrome (2) Myoclonus (3) Type 2 diabetes mellitus without complication (4) Primary hypertension (5) Mixed hyperlipidemia (6) History of CVA with residual deficit (7) Right sided weakness (8) Cervical cord myelomalacia (9) Spinal cord contusion (10) Fall Status: Acute SHAYNE JAMES DO Sep 21, 2021 06:14
[2021-09-21 07:31] VITALS: BP 142/74
[2021-09-21] MEDS: amLODIPine 5 MG (NORVASC) TAB PO SCH (07:59)
[2021-09-21] MEDS: ENOXAPARIN 40 MG/0.4 ML (LOVENOX) SYR SC SCH (07:59)
[2021-09-21] MEDS: PANTOPRAZOLE 40 MG (PROTONIX) TAB PO SCH ×2 (07:59→21:15)
[2021-09-21] MEDS: meTOprolol TARTRATE 25 MG (LOPRESSOR) TABLET PO SCH ×2 (07:59→21:15)
[2021-09-21] MEDS: TAMSULOSIN 0.4 MG (FLOMAX) CAP PO SCH ×2 (07:59→21:15)
[2021-09-21] MEDS: HYDROCORTISONE 1% CREAM 30 GM TUBE TOP SCH ×2 (09:00→21:17)
--- NOTE | 2021-09-21 09:01 | Physical Therapy Daily Note ---
PT Daily Note-Current Subjective Patient in bed pre tx, agrees to PT, has no complaints of pain at rest. Will be co-treating with OT due to poor patient mobility, strength, endurance, severe debility, coordinate UE and LE with activity, safety and reduce risk of falls. Appearance Patient in bed post tx with nurse call, phone, tray, all needs met. Mental Status Patient Orientation: Person, Unable to Assess Attachments: Tyson Catheter Transfers SCALE: Activities may be completed with or without assistive devices. 7-Lgewasoebv-gfpfaut completes the activity by him/herself with no assistance from a helper. 5-Set-up or Clean-up Assistance-helper sets up or cleans up; patient completes activity. [place] assists only prior to or following the activity. 4-Supervision or Touching Assistance-helper provides verbal cues and/or touching/steadying and/or contact guard assistance as patient completes activity. Assistance may be provided throughout the activity or intermittently. 3-Partial/Moderate Assistance-helper does LESS THAN HALF the effort. [place] lifts, holds or supports trunk or limbs, but provides less than half the effort. 2-Substantial/Maximal Assistance-helper does MORE THAN HALF the effort. [place] lifts or holds trunk or limbs and provides more than half the effort. 9-Lqadukzaw-hqkseb does ALL the effort. Patient does none of the effort to complete the activity. Or, the assistance of 2 or more helpers is required for the patient to complete the activity. If activity was not attempted, code reason: 7-Patient Refused. 9-Not Applicable-not attempted and the patient did not perform the activity before the current illness, exacerbation or injury. 10-Not Attempted due to Environmental Limitations-(lack of equipment, weather restraints, etc.). 88-Not Attempted due to Medical Conditions or Safety Concerns. Roll Left & Right (QC): 6 Sit to Lying (QC): 3 Lying to Sitting/Side of Bed(Q: 4 Sit to Stand (QC): 3 Chair/Azb-kk-Oxrwt Xfer(QC): 3 Patient transfers to from seated on the side of the bed, wheeled into restroom and stand pivot transfer to shower bench, undresses, showers, dries off, partially dresses, stand pivot transfer to , finishes dressing, wheels to therapy gym. Gait Training Distance: 20'x2 Walk 10 feet (QC): 3 Gait Assistive Device: FWW mod assist, WC follow, needs assist with balance and guiding walker Wheelchair Training Does the Pt Use a Wheelchair?: Yes Wheel 50 ft with 2 turns (QC): 3 Type of Wheelchair: Manual 120' Treatments PT performed bed mobility and transfers, ambulation, WC mobility, standing and positioning during bathing and dressing, OT performed bathing, dressing, UE positioning and safety during activity Assessment Current Status: Fair Progress slowly progressing functional mobility, still has BLE extensor tone and poor coordination PT Short Term Goals Short Term Goals Time Frame: Sep 08, 2021 Roll Left & Right: 4 Sit to lyin Lying to sitting on side of be: 3 Sit to stand: 2 Chair/zbd-kd-eczqu transfer: 2 PT Hand Alterations Tailor Goals Care Home Goals PT Hand Alterations Tailor Goals Time Frame: Sep 22, 2021 Roll Left & Right (QC): 4 Sit to Lying (QC): 4 Lying-Sitting on Side/Bed(QC): 4 Sit to Stand (QC): 3 Chair/Pgj-hg-Bxzfm Xfer(QC): 3 Toilet Transfer (QC): 3 Car Transfer (QC): 3 Does the Patient Walk: No and Walking Goal NOT indicated Walk 10 feet (QC): 88 Walk 50ft with 2 Turns (QC): 88 Walk 150 ft (QC): 88 Walking 10ft on Uneven Surface: 88 1 Step (curb) (QC): 88 4 Steps (QC): 88 12 Steps (QC): 88 Picking up an Object (QC): 3 Does the Pt use WC or Scooter?: Yes Wheel 50 feet with 2 turns (QC: 3 Type: Manual Wheel 150 feet: 3 Type: Manual PT Plan Problem List Problem List: Activity Tolerance, Functional Strength, Safety, Balance, Gait, Transfer, Bed Mobility, ROM Treatment/Plan Treatment Plan: Continue Plan of Care Treatment Plan: Bed Mobility, Education, Functional Activity Sara, Functional Strength, Group Therapy, Safety, Therapeutic Exercise, Transfers Treatment Duration: Sep 13, 2021 Frequency: At least 5 of 7 days/Wk (IRF) Estimated Hrs Per Day: 1.5 hours per day Patient and/or Family Agrees t: Yes Safety Risks/Education Patient Education: Gait Training, Transfer Techniques, Correct Positioning, Reviewed Don/Doff Brace, Safety Issues Teaching Recipient: Patient Teaching Methods: Demonstration, Discussion Response to Teaching: Reinforcement Needed Time/GCodes Time In: 0800 Time Out: 0900 Total Billed Treatment Time: 60 Total Billed Treatment 1 visit FA 60' co-treated for 60' VERONICA MONIQUE PT Sep 21, 2021 09:01
--- NOTE | 2021-09-21 09:02 | Occupational Ther Daily Note ---
OT Current Status-Daily Note Subjective Pt agreeable to shower. Co-treat with PT for part of session ([id number]) due to need of 2 skilled clinicians to progress indep with adls and mobility Appearance Pt returned to supine in bed per request, all needs within reach, RN notified. Mental Status/Objective Attachments: IV ADL-Treatment Therapy Code Descriptions/Definitions Functional [place] Measure: 0=Not Assessed/NA 4=Minimal Assistance 1=Total Assistance 5=Supervision or Setup 2=Maximal Assistance 6=Modified [place] 3=Moderate Assistance 7=Complete IndependenceSCALE: Activities may be completed with or without assistive devices. 5-Syzgwgoyij-gpzmsyy completes the activity by him/herself with no assistance from a helper. 5-Set-up or Clean-up Assistance-helper sets up or cleans up; patient completes activity. [place] assists only prior to or following the activity. 4-Supervision or Touching Assistance-helper provides verbal cues and/or touching/steadying and/or contact guard assistance as patient completes activity. Assistance may be provided throughout the activity or intermittently. 3-Partial/Moderate Assistance-helper does LESS THAN HALF the effort. [place] lifts, holds or supports trunk or limbs, but provides less than half the effort. 2-Substantial/Maximal Assistance-helper does MORE THAN HALF the effort. [place] lifts or holds trunk or limbs and provides more than half the effort. 9-Bbzhsxlpa-lpezjd does ALL the effort. Patient does none of the effort to complete the activity. Or, the assistance of 2 or more helpers is required for the patient to complete the activity. If activity was not attempted, code reason: 7-Patient Refused. 9-Not Applicable-not attempted and the patient did not perform the activity before the current illness, exacerbation or injury. 10-Not Attempted due to Environmental Limitations-(lack of equipment, weather restraints, etc.). 88-Not Attempted due to Medical Conditions or Safety Concerns. Eating (QC): 5 Shower/Bathe Self (QC): 3 Lower Body Dressing (QC): 1 On/Off Footwear: 3 Toileting Hygiene (QC): 1 Pt incontinent of small BM; contained in brief. Fátima care completed sidelying in bed. Shower performed; 100% completed in sitting. This is patients first shower with zero trunk/lateral support. Due to increased core/trunk stability required for task, pt fatigues much quicker. Towards end of task, pt requires 1-2 UE support on grab bar/shower bench to maintain sitting balance. Due to fatigue and UE support required, assist given to wash from mid calf to feet. Min a for thoroughness to wash under R arm. Attempt to perform lateral pelvic leans to wash backside, yet pt unable to achieve fully due to fatigue and pain in L shoulder when reaching posteriorly. Assist provided. Pt able to wash all other body parts without assist. Brief donned seated in w/c. Improved LE strength and hip flexibility noted when lifting foot in order to thread through brief. Min a to maintain figure 4 position and min a to thread brief over heel. Mod a x1 to stand as 2nd person pulled brief up to hips. Mod-max a required to don bilateral socks due to fatigue, limited strength in L hand, tight fit, and bulky bandages on heels. Pt may benefit from increasing size of sock during next session. Other Treatment Pt ambulated 20x2 with mod a x1 and cga of 2nd person. Pt has improved from 3 to 2 people assist with gait. Pt with increased fatigue post shower this date. Min a also with management of walker. Pt continues to need cues for upright posture and slowing speed due to impaired LE coordination. 2nd session: ([id number]): pt participated in FM/dexterity task (nuts/bolts board) to improve coordination, pinch/sustainable design consultant, and bilateral hand strength needed for functional tasks. Pt unable to maintain pinch on nut and often would compensate by twisting nut with index finger. With any shoulder L flexion, assist needed under elbow due to weakness. When replacing nut back onto bolt, assist needed to line up grooves. Pt then able to twist on with extra time. Education OT Patient Education: Correct positioning, Energy conservation, Modified ADL techniques, Progress toward Goal/Update tx plan, Purpose of tx/functional activities, Reviewed precautions, Rehab process, Safety issues, Transfer techniques, W/C management Teaching Recipient: Patient Teaching Methods: Demonstration, Discussion Response to Teaching: Return Demonstration, Reinforcement Needed OT Short Term Goals Short Term Goals Time Frame: Sep 22, 2021 Toileting hygiene: 2 Shower/bathe self: 2 Upper body dressin Lower body dressin Putting on/taking off footwear: 3 OT Emd Special Education Teacher Goals Emd Special Education Teacher Goals Time Frame: Oct 01, 2021 Eating (QC): 5 Oral Hygiene (QC): 6 Toileting Hygiene (QC): 4 Shower/Bathe Self (QC): 4 Upper Body Dressing (QC): 5 Lower Body Dressing (QC): 4 On/Off Footwear (QC): 4 Additional Goals: 1-Demonstrate ADL Tasks, 2-Verbalize Understanding, 3- ImproveStrength/Sara 1=Demonstrate adherence to instructed precautions during ADL tasks. 2=Patient will verbalize/demonstrate understanding of assistive devices/ modifications for ADL. 3=Patient will improve strength/tolerance for activity to enable patient to perform ADL's. OT Education/Plan Problem List/Assessment Assessment: Decreased Activ Tolerance, Decreased Safety Aware, Decreased UE Strength, Dependent Transfers, Impaired Coordination, Impaired Funct Balance, Impaired I ADL's, Impaired Self-Care Skills, Restricted Funct UE ROM Discharge Recommendations Plan/Recommendations: Continue POC Equpiment Recommendations-D/C: Bath Chair, Bottle Caser Treatment Plan/Plan of Care Treatment,Training & Education: Yes Patient would benefit from OT for education, treatment and training to promote independence in ADL's, mobility, safety and/or upper extremity function for ADL's. Plan of Care: ADL Retraining, Functional Mobility, Group Exercise/Act as Ind, UE Funct Exercise/Act, UE Neuromus Re-Ed/Coord Treatment Duration: Oct 01, 2021 Frequency: At least 5 of 7 days/Wk (IRF) Estimated Hrs Per Day: 1.5 hours per day Agreement: Yes Rehab Potential: Fair Time/GCodes Start Time: 07:45 (1020) Stop Time: 09:00 (1035) Total Time Billed (hr/min): 90 Billed Treatment Time 1 visit ADL x4 (55 min) FA (20 min) 2nd visit FA (15 min) Nisreen Lowe OT Sep 21, 2021 09:02
--- NOTE | 2021-09-21 11:33 | Physical Therapy Daily Note ---
PT Daily Note-Current Subjective Patient in bed pre tx, agrees to PT, has no complaints of pain at rest. Appearance Patient in bed post tx with nurse call, phone, tray, all needs met. Mental Status Patient Orientation: Person, Unable to Assess Attachments: Tyson Catheter Transfers SCALE: Activities may be completed with or without assistive devices. 0-Gsmimavfjk-hwuhxmr completes the activity by him/herself with no assistance from a helper. 5-Set-up or Clean-up Assistance-helper sets up or cleans up; patient completes activity. [place] assists only prior to or following the activity. 4-Supervision or Touching Assistance-helper provides verbal cues and/or touching/steadying and/or contact guard assistance as patient completes activity. Assistance may be provided throughout the activity or intermittently. 3-Partial/Moderate Assistance-helper does LESS THAN HALF the effort. [place] lifts, holds or supports trunk or limbs, but provides less than half the effort. 2-Substantial/Maximal Assistance-helper does MORE THAN HALF the effort. [place] lifts or holds trunk or limbs and provides more than half the effort. 0-Slyhhunnm-iybqcu does ALL the effort. Patient does none of the effort to complete the activity. Or, the assistance of 2 or more helpers is required for the patient to complete the activity. If activity was not attempted, code reason: 7-Patient Refused. 9-Not Applicable-not attempted and the patient did not perform the activity before the current illness, exacerbation or injury. 10-Not Attempted due to Environmental Limitations-(lack of equipment, weather restraints, etc.). 88-Not Attempted due to Medical Conditions or Safety Concerns. Exercises Supine Ex: Bridging, Ankle pumps, Quad Set, Glut sets, Heel Slides, Short Arc Quads, Straight leg raise (AAROM), Hip abd/add Supine Reps: 20 also BLE stretching Treatments BLE strengthening and stretching Assessment Current Status: Fair Progress improving LE strength PT Short Term Goals Short Term Goals Time Frame: Sep 08, 2021 Roll Left & Right: 4 Sit to lyin Lying to sitting on side of be: 3 Sit to stand: 2 Chair/nlt-vt-nfkre transfer: 2 PT Customer Marketing Assistant Goals Halfway Goals PT Halfway Goals Time Frame: Sep 22, 2021 Roll Left & Right (QC): 4 Sit to Lying (QC): 4 Lying-Sitting on Side/Bed(QC): 4 Sit to Stand (QC): 3 Chair/Epp-cr-Mcjfb Xfer(QC): 3 Toilet Transfer (QC): 3 Car Transfer (QC): 3 Does the Patient Walk: No and Walking Goal NOT indicated Walk 10 feet (QC): 88 Walk 50ft with 2 Turns (QC): 88 Walk 150 ft (QC): 88 Walking 10ft on Uneven Surface: 88 1 Step (curb) (QC): 88 4 Steps (QC): 88 12 Steps (QC): 88 Picking up an Object (QC): 3 Does the Pt use WC or Scooter?: Yes Wheel 50 feet with 2 turns (QC: 3 Type: Manual Wheel 150 feet: 3 Type: Manual PT Plan Problem List Problem List: Activity Tolerance, Functional Strength, Safety, Balance, Gait, Transfer, Bed Mobility, ROM Treatment/Plan Treatment Plan: Continue Plan of Care Treatment Plan: Bed Mobility, Education, Functional Activity Sara, Functional Strength, Group Therapy, Safety, Therapeutic Exercise, Transfers Treatment Duration: Sep 13, 2021 Frequency: At least 5 of 7 days/Wk (IRF) Estimated Hrs Per Day: 1.5 hours per day Patient and/or Family Agrees t: Yes Safety Risks/Education Patient Education: Correct Positioning, Safety Issues Teaching Recipient: Patient Teaching Methods: Demonstration, Discussion Response to Teaching: Reinforcement Needed Time/GCodes Time In: 1100 Time Out: 1130 Total Billed Treatment Time: 30 Total Billed Treatment 1 visit EX 30' VERONICA MONIQUE PT Sep 21, 2021 11:32
[2021-09-21 19:55] VITALS: BP 117/59
[2021-09-21] MEDS: ROSUVASTATIN 20 MG (CRESTOR) TABLET PO SCH (21:15)
[2021-09-22] MEDS: SUCRALFATE 1 GM (CARAFATE) TAB PO SCH ×4 (05:50→20:47)
[2021-09-22] MEDS: BETHANECHOL 25 MG (URECHOLINE) TAB PO SCH ×4 (05:50→20:47)
[2021-09-22] MEDS: inSUlin ASPART (NovoLOG) 1 UNIT/0.01 ML (CHARGE PER UNIT) SC SCH ×4 (05:50→20:39)
[2021-09-22] MEDS: meTOprolol TARTRATE 25 MG (LOPRESSOR) TABLET PO SCH ×2 (07:44→20:46)
[2021-09-22] MEDS: ENOXAPARIN 40 MG/0.4 ML (LOVENOX) SYR SC SCH (07:44)
[2021-09-22] MEDS: TAMSULOSIN 0.4 MG (FLOMAX) CAP PO SCH ×2 (07:45→20:47)
[2021-09-22] MEDS: PANTOPRAZOLE 40 MG (PROTONIX) TAB PO SCH ×2 (07:45→20:46)
[2021-09-22] MEDS: HYDROCORTISONE 1% CREAM 30 GM TUBE TOP SCH ×2 (07:45→20:46)
[2021-09-22 08:00] VITALS: BP 116/60
--- NOTE | 2021-09-22 09:02 | Occupational Ther Daily Note ---
OT Current Status-Daily Note Subjective Pt denies pain, agreeable to treatment. Co-treat with PT for part of session ([id number]) secondary to need of 2 skilled clinicians to progress indep with adls and mobility. Appearance Pt returned to supine in bed per request. All needs within reach and RN notified. Mental Status/Objective Attachments: IV ADL-Treatment Therapy Code Descriptions/Definitions Functional [place] Measure: 0=Not Assessed/NA 4=Minimal Assistance 1=Total Assistance 5=Supervision or Setup 2=Maximal Assistance 6=Modified [place] 3=Moderate Assistance 7=Complete IndependenceSCALE: Activities may be completed with or without assistive devices. 4-Fqandalvwm-dsxxbxu completes the activity by him/herself with no assistance from a helper. 5-Set-up or Clean-up Assistance-helper sets up or cleans up; patient completes activity. [place] assists only prior to or following the activity. 4-Supervision or Touching Assistance-helper provides verbal cues and/or touching/steadying and/or contact guard assistance as patient completes activity. Assistance may be provided throughout the activity or intermittently. 3-Partial/Moderate Assistance-helper does LESS THAN HALF the effort. [place] lifts, holds or supports trunk or limbs, but provides less than half the effort. 2-Substantial/Maximal Assistance-helper does MORE THAN HALF the effort. [place] lifts or holds trunk or limbs and provides more than half the effort. 8-Kckwioora-rjoaob does ALL the effort. Patient does none of the effort to complete the activity. Or, the assistance of 2 or more helpers is required for the patient to complete the activity. If activity was not attempted, code reason: 7-Patient Refused. 9-Not Applicable-not attempted and the patient did not perform the activity before the current illness, exacerbation or injury. 10-Not Attempted due to Environmental Limitations-(lack of equipment, weather restraints, etc.). 88-Not Attempted due to Medical Conditions or Safety Concerns. Oral Hygiene (QC): 5 Lower Body Dressing (QC): 2 On/Off Footwear: 3 Toileting Hygiene (QC): 1 Toilet Transfer (QC): 3 Pt incontinent of small BM at OT arrival. Dependent for latonya care at bed level. Pt able to roll R/L with extra time and use of bed rails. Supine>sit: Min-mod a for trunk elevation. Increased assist needed when transferring to Left vs Right. Good sitting balance at edge of bed. Oral care and face washing performed in unsupported sitting with set up only. Extra time to manipulate supplies but no physical assistance required. Other Treatment Several stand pivot transfers performed throughout session to multiple different surfaces including bed, w/c, therapy mat, and toilet. Pt utilized walker and cga-min a x1 with all transfers. SBA of second person for safety only. Extra time to transition feet. Toilet transfer x2 with min-mod a and use of grab bars. Discussion with nursing staff on incorporating a bowel program. Pt fatigues easily with activity and requires several seated rest breaks. While supine on therapy mat, pt alternated between upper and lower extremity exercises. Focus on improving overall strength, ROM, endurance, and activity tolerance needed for functional tasks. Improved L shoulder and hand ROM exhibit ed. Dowel murray utilized as visual aid for correct form and to mirror RUE. 10x1 all planes. See PT note regarding LE exercises. Pt ambulated ~40-50 feet with CGA-Min A x2. Initial Improvement in speed and coordination noted with LE's, yet as fatigue increases, LE's begin to narrow in MAINOR. Pt cued to sit and instructed/demonstrated on keeping MAINOR wide to reduce chance of fall/scissoring. 2nd session: ([id number]): pt participated in FM/dexterity task (XL nuts/bolts board) to improve coordination, pinch/host hostess, and bilateral hand strength needed for functional tasks. Pt unable to maintain pinch on nut and often would compensate by twisting nut with index finger or twisting bolt with R hand. Intermittent min assist needed under L elbow due to weakness. When replacing nut back onto bolt, assist needed to line up grooves. Pt then able to twist on with extra time. ~10 min required to twist nut on/off 5 bolts Education OT Patient Education: Correct positioning, Energy conservation, Modified ADL techniques, Progress toward Goal/Update tx plan, Purpose of tx/functional activities, Safety issues, Transfer techniques, W/C management Teaching Recipient: Patient Teaching Methods: Demonstration, Discussion Response to Teaching: Return Demonstration, Reinforcement Needed OT Short Term Goals Short Term Goals Time Frame: Sep 22, 2021 Toileting hygiene: 2 Shower/bathe self: 2 Upper body dressin Lower body dressin Putting on/taking off footwear: 3 OT Nurse Ldr Goals Nurse Ldr Goals Time Frame: Oct 01, 2021 Eating (QC): 5 Oral Hygiene (QC): 6 Toileting Hygiene (QC): 4 Shower/Bathe Self (QC): 4 Upper Body Dressing (QC): 5 Lower Body Dressing (QC): 4 On/Off Footwear (QC): 4 Additional Goals: 1-Demonstrate ADL Tasks, 2-Verbalize Understanding, 3- ImproveStrength/Sara 1=Demonstrate adherence to instructed precautions during ADL tasks. 2=Patient will verbalize/demonstrate understanding of assistive devices/modifications for ADL. 3=Patient will improve strength/tolerance for activity to enable patient to perform ADL's. OT Education/Plan Problem List/Assessment Assessment: Decreased Activ Tolerance, Decreased Safety Aware, Decreased UE Strength, Impaired Coordination, Impaired Funct Balance, Impaired I ADL's, Impaired Self-Care Skills, Restricted Funct UE ROM Discharge Recommendations Plan/Recommendations: Continue POC Treatment Plan/Plan of Care Treatment,Training & Education: Yes Patient would benefit from OT for education, treatment and training to promote independence in ADL's, mobility, safety and/or upper extremity function for ADL's. Plan of Care: ADL Retraining, Functional Mobility, Group Exercise/Act as Ind, UE Funct Exercise/Act, UE Neuromus Re-Ed/Coord Treatment Duration: Oct 01, 2021 Frequency: At least 5 of 7 days/Wk (IRF) Estimated Hrs Per Day: 1.5 hours per day Agreement: Yes Rehab Potential: Fair Time/GCodes Start Time: 07:40 (1028) Stop Time: 09:00 (1040) Total Time Billed (hr/min): 92 Billed Treatment Time 1 visit ADL x2 (30 min) FA x2 (30 min) EX (20 min) 2nd visit FA Nisreen Lowe OT Sep 22, 2021 09:02
--- NOTE | 2021-09-22 09:04 | Physical Therapy Daily Note ---
PT Daily Note-Current Subjective Pt. pleasant and smiles and shakes head yes to participate in PT OT co Rx due to poor mobility, strength, endurance, debility and coordination deficit requiring coordinated effort of 2 skilled clinicians for optimum treatment . No c/o pain this date but does express fatigue and was given rest breaks Pain Location: No Pain Reported Mental Status Patient Orientation: Normal For Age Attachments: Tyson Catheter Transfers SCALE: Activities may be completed with or without assistive devices. 9-Rvllhcwxlj-ezgpkpq completes the activity by him/herself with no assistance from a helper. 5-Set-up or Clean-up Assistance-helper sets up or cleans up; patient completes activity. [place] assists only prior to or following the activity. 4-Supervision or Touching Assistance-helper provides verbal cues and/or touching/steadying and/or contact guard assistance as patient completes activity. Assistance may be provided throughout the activity or intermittently. 3-Partial/Moderate Assistance-helper does LESS THAN HALF the effort. [place] lifts, holds or supports trunk or limbs, but provides less than half the effort. 2-Substantial/Maximal Assistance-helper does MORE THAN HALF the effort. [place] l ifts or holds trunk or limbs and provides more than half the effort. 0-Sqfmuyzhw-khhbch does ALL the effort. Patient does none of the effort to complete the activity. Or, the assistance of 2 or more helpers is required for the patient to complete the activity. If activity was not attempted, code reason: 7-Patient Refused. 9-Not Applicable-not attempted and the patient did not perform the activity before the current illness, exacerbation or injury. 10-Not Attempted due to Environmental Limitations-(lack of equipment, weather restraints, etc.). 88-Not Attempted due to Medical Conditions or Safety Concerns. Roll Left & Right (QC): 6 Sit to Lying (QC): 4 Lying to Sitting/Side of Bed(Q: 4 Sit to Stand (QC): 4 Chair/Fil-we-Wievb Xfer(QC): 4 Toilet Transfer (QC): 4 emphasis on SPTs this date from bed to w/c to bed, w/c to toilet, w/c to Rx table etc all with FWW and CGA , pt. improved markedly Gait Training Does the Patient Walk?: Yes Walk 10 feet (QC): 4 Walk 50 ft with 2 Turns(QC): 4 Gait Persons Needed: 1 Gait Assistive Device: FWW w/c close follow up , turns were wide , pts. MAINOR began to get narrow at 40 ft so at 50 ft pt was asked to rest, Wheelchair Training Does the Pt Use a Wheelchair?: Yes Wheel 50 ft with 2 turns (QC): 4 Type of Wheelchair: Manual indep to brake and unbrake w/c but needs reminded Exercises Supine Ex: Bridging, Ankle pumps, Rolling, Heel Slides, Short Arc Quads, Scooting, Straight leg raise, Hip abd/add Supine Reps: 12 Seated Therapy Exercises: Sit to stand Seated Reps: 12 Treatments SPTs using FWW, WC mob, gait, Therex Assessment Current Status: Good Progress PT Short Term Goals Short Term Goals Time Frame: Sep 08, 2021 Roll Left & Right: 4 Sit to lyin Lying to sitting on side of be: 3 Sit to stand: 2 Chair/xxz-kz-emoab transfer: 2 PT Half-Way Goals Half-Way Goals PT Slab Tripper Goals Time Frame: Sep 22, 2021 Roll Left & Right (QC): 4 Sit to Lying (QC): 4 Lying-Sitting on Side/Bed(QC): 4 Sit to Stand (QC): 3 Chair/Sma-pc-Dploz Xfer(QC): 3 Toilet Transfer (QC): 3 Car Transfer (QC): 3 Does the Patient Walk: No and Walking Goal NOT indicated Walk 10 feet (QC): 88 Walk 50ft with 2 Turns (QC): 88 Walk 150 ft (QC): 88 Walking 10ft on Uneven Surface: 88 1 Step (curb) (QC): 88 4 Steps (QC): 88 12 Steps (QC): 88 Picking up an Object (QC): 3 Does the Pt use WC or Scooter?: Yes Wheel 50 feet with 2 turns (QC: 3 Type: Manual Wheel 150 feet: 3 Type: Manual PT Plan Treatment/Plan Treatment Plan: Continue Plan of Care Treatment Plan: Bed Mobility, Education, Functional Activity Sara, Functional Strength, Group Therapy, Safety, Therapeutic Exercise, Transfers Treatment Duration: Sep 13, 2021 Frequency: At least 5 of 7 days/Wk (IRF) Estimated Hrs Per Day: 1.5 hours per day Patient and/or Family Agrees t: Yes Safety Risks/Education Patient Education: Gait Training, Transfer Techniques, Correct Positioning, W/C Management, Disease Process, Safety Issues Teaching Recipient: Patient Teaching Methods: Demonstration, Discussion Response to Teaching: Verbalize Understanding, Return Demonstration, Reinforcement Needed Time/GCodes Time In: 800 Time Out: 900 Total Billed Treatment Time: 60 Total Billed Treatment 1,FA30m,GT10m,EX20m (60 M co Rx) LILIAN HARRISON SHOE SHANKER Sep 22, 2021 09:04
[2021-09-22] MEDS: amLODIPine 5 MG (NORVASC) TAB PO SCH (09:07)
--- NOTE | 2021-09-22 11:12 | PM&R Progress Note ---
Subjective HPI/CC On Admission Date Seen by Provider: Sep 22, 2021 Time Seen by Provider: 12:00 Subjective/Events-last exam 09/22/2021: Pt improving immensely Easy transfer Bowel routine will be started today 09/21/2021: Pt doing dramatically better Weight-bearing and walking today with 2 assists Gave a morale boost for him now that he was able to walk 09/20/2021: Pt doing pretty well Walked with 3 assistants with a walker today Aguilar is back in Increasing Urecholine 50mg TID and Flomax BID Labs remain stable Last day of Cefepime today 09/19/2021: Patient doing well Wants to go home Aguilar catheter was replaced Supportive care will continue 09/18/2021: Patient doing well Maintained on cefepime Voiding trial per urology No pain is reported 09/17/2021: Patient doing very well Eating and drinking Maintain on cefepime Dr. Gaston will do voiding trial tomorrow 09/16/2021: Patient doing really well Hep-Lock IV fluid Pseudomonas sensitivity not back yet Family training will be soon 09/15/2021: Patient doing better Fever defervesced Aguilar back in White count improved Pseudomonas UTI maintain on cefepime and DC vancomycin Will have family come in for training 09/14/2021: Pt is not feeling well today Fever noted Had to put aguilar back in last night Suspect UTI Chest x-ray will be obtained [place] [address] Gaston regarding the consultation Cefepime and Vanc will be initiated to cover for pseudomonas and or enterococcus Zofran and IV fluid initiated 09/13/21: Pt is doing pretty well Will attempt to discontinue the catheter today. If he has retention it could be from the spinal cord injury and could very well require it to be indwelling. Labs reviewed Blood sugar is elevated from drinking orange juice all day 09/12/2021: Patient continues to improve No pain is reported Reviewed blood sugars Blood pressure stable 09/11/2021: Patient dramatically improved Loose stools still remain Patient denies pain Moving hands and feet very well 09/10/21: Patient doing remarkably well Gaining function with hands and feet Loose BM's Blood sugars 272 Checked meds and labs 09/09/2021: Patient doing well No pain is reported Blood sugars reviewed Blood pressure reviewed Able to feed himself 09/08/2021: Pt is doing well Eating well Able to feed himself with his right hand Loose stools will be given Imodium 09/07/2021: Pt is doing well Blood sugar is 127 Bowels are loose Coccyx has a decubitus ulcer and we will monitor that closely 09/06/2021: Pt is doing a lot better Hemoglobin was 10.2 Has a decubitus ulcer on his coccyx Low bp so holding Norvasc Pliar lift is being used 09/05/2021: Patient doing really well Requiring Pilar lift though Lovenox started today Blood sugars are variable 09/04/2021: Patient doing very well Requiring Pilar lift since he cannot use the sit to stand at this current time Moving his arms and hands better Blood sugar is a little bit elevated Blood pressure better Lovenox will be started tomorrow 09/03/2021: Pt is doing well Took a shower but then he couldn't really get back in bed Had some emesis so we'll start Protonix 40 mg BID and Carafate Aguilar cath remains due to retention 09/02/2021: Pt settling in well Holding all insulin due to hypoglycemia Had emesis last night Fed himself a bit today Keeping aguilar in for retention Review of Systems General: Fatigue, Malaise Objective Exam Vital Signs Vital Signs Date Time Temp Pulse Resp B/P (MAP) Pulse Ox O2 Delivery O2 Flow Rate FiO2 09/22/21 20:20 Room Air 09/22/21 19:30 36.6 65 18 127/75 (92) 98 Capillary Refill : General Appearance: No Apparent Distress, WD/WN, Chronically ill, Obese HEENT: PERRL/EOMI, Normal ENT Inspection, Pharynx Normal Neck: Full Range of Motion, Normal Inspection, Non Tender, Supple, Carotid Bruit Respiratory: Chest Non Tender, Lungs Clear, Normal Breath Sounds, No Accessory Muscle Use, No Respiratory Distress Cardiovascular: Regular Rate, Rhythm, No Edema, No Gallop, No JVD, No Murmur, Normal Peripheral Pulses Gastrointestinal: Normal Bowel Sounds, No Organomegaly, No Pulsatile Mass, Non Tender, Soft Back: Normal Inspection, No CVA Tenderness, No Vertebral Tenderness, Decreased Range of Motion Extremity: Normal Capillary Refill, Normal Inspection, Normal Range of Motion, Non Tender, No Calf Tenderness, No Pedal Edema Neurologic/Psychiatric: Alert, Oriented x3, Normal Mood/Affect, Abnormal Gait, Motor Weakness Skin: Normal Color, Warm/Dry Lymphatic: No Adenopathy Results/Procedures Lab Patient resulted labs reviewed. FIM Transfers Therapy Code Descriptions/Definitions Functional [place] Measure: 0=Not Assessed/NA 4=Minimal Assistance 1=Total Assistance 5=Supervision or Setup 2=Maximal Assistance 6=Modified [place] 3=Moderate Assistance 7=Complete IndependenceSCALE: Activities may be completed with or without assistive devices. 1-Mfyhrbwyqp-ahybzac completes the activity by him/herself with no assistance from a helper. 5-Set-up or Clean-up Assistance-helper sets up or cleans up; patient completes activity. [place] assists only prior to or following the activity. 4-Supervision or Touching Assistance-helper provides verbal cues and/or touching/steadying and/or contact guard assistance as patient completes activity. Assistance may be provided throughout the activity or intermittently. 3-Partial/Moderate Assistance-helper does LESS THAN HALF the effort. [place] lifts, holds or supports trunk or limbs, but provides less than half the effort. 2-Substantial/Maximal Assistance-helper does MORE THAN HALF the effort. [place] lifts or holds trunk or limbs and provides more than half the effort. 7-Wxzldebpi-nchqoo does ALL the effort. Patient does none of the effort to complete the activity. Or, the assistance of 2 or more helpers is required for the patient to complete the activity. If activity was not attempted, code reason: 7-Patient Refused. 9-Not Applicable-not attempted and the patient did not perform the activity before the current illness, exacerbation or injury. 10-Not Attempted due to Environmental Limitations-(lack of equipment, weather restraints, etc.). 88-Not Attempted due to Medical Conditions or Safety Concerns. Roll Left to Right (QC): 6 Sit to Lying (QC): 4 Sit to Stand (QC): 4 Chair/Vwu-dd-Icfie Xfer(QC): 4 Car Transfer (QC): 88 Gait Training Does the Patient Walk?: Yes Distance: 20'x2 Walk 10 feet (QC): 4 Walk 50 ft with 2 Turns(QC): 4 Walk 150 ft (QC): 88 Walking 10ft/uneven surface-QC: 88 Gait Persons Needed: 1 Gait Assistive Device: FWW Wheelchair Training Does the Pt Use a Wheelchair?: Yes Wheel 50 ft with 2 turns (QC): 4 Wheel 150 ft (QC): 3 Type of Wheelchair: Manual Stair Training 1 Step (curb) (QC): 88 4 Steps (QC): 88 12 Steps (QC): 88 Balance Picking up an Object (QC): 88 ADL-Treatment Eating (QC): 5 Oral Hygiene (QC): 5 Shower/Bathe Self (QC): 3 Upper Body Dressing (QC): 3 Lower Body Dressing (QC): 2 On/Off Footwear (QC): 3 Toileting Hygiene (QC): 1 Toilet Transfer (QC): 3 Assessment/Plan Assessment and Plan Assess & Plan/Chief Complaint Assessment: 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 Diabetes cuh-sn-nfycsxs Hypertension Hyperlipidemia Previous CVA with right-sided weakness Coccyx decubitus ulcers Pseudomonas UTI status post SIRS completed treatment with cefepime 09/20/2021 Plan: Aggressive therapy Pain control Monitor bowel function Insulin 09/02/2021: Supportive care Aggressive therapy Hold insulin 09/03/2021: Supportive care Cervical spine collar Aguilar catheter 09/04/2021: Supportive care Cervical spine collar Aguilar catheter Pilar lift We'll start Lovenox tomorrow 09/05/2021: Supportive care Lovenox Maintain Aguilar 09/06/2021: Maintain Aguilar Continues to be Pilar lift 09/07/2021: Coccyx decubitus ulcer management 09/08/2021: Imodium for loose stools Continue to progress 09/09/2021: Imodium for loose stools Supportive care 09/10/2021: Supportive care Dramatic improvement 09/11/2021: Supportive care We will attempt to DC Aguilar catheter this week 09/12/2021: Attempt to DC Aguilar catheter Supportive care 09/13/21: Voiding trial Monitor sugar 09/14/2021: Empiric antibiotics Urology consultation 09/15/2021: DC vancomycin Maintain cefepime 09/16/2021: Maintain cefepime Supportive care Hep-Lock IV fluid 09/17/2021: Maintain antibiotics 09/18/2021: Supportive care Antibiotics 09/19/2021: Supportive care Antibiotics 09/20/2021: Completed cefepime Appreciate urology 09/21/2021: Dramatic improvement Continue supportive care 09/22/2021: Supportive care Bowel routine (1) Cervical spine syndrome (2) Myoclonus (3) Type 2 diabetes mellitus without complication (4) Primary hypertension (5) Mixed hyperlipidemia (6) History of CVA with residual deficit (7) Right sided weakness (8) Cervical cord myelomalacia (9) Spinal cord contusion (10) Fall Status: Acute SHAYNE JAMES DO Sep 22, 2021 11:12
--- NOTE | 2021-09-22 11:30 | Physical Therapy Daily Note ---
PT Daily Note-Current Subjective Pt. agrees to therex. Pain Location: No Pain Reported Mental Status Patient Orientation: Normal For Age Transfers SCALE: Activities may be completed with or without assistive devices. 9-Alazqjgxiy-vmfntlj completes the activity by him/herself with no assistance from a helper. 5-Set-up or Clean-up Assistance-helper sets up or cleans up; patient completes activity. [place] assists only prior to or following the activity. 4-Supervision or Touching Assistance-helper provides verbal cues and/or touching/steadying and/or contact guard assistance as patient completes activity. Assistance may be provided throughout the activity or intermittently. 3-Partial/Moderate Assistance-helper does LESS THAN HALF the effort. [place] lifts, holds or supports trunk or limbs, but provides less than half the effort. 2-Substantial/Maximal Assistance-helper does MORE THAN HALF the effort. [place] lifts or holds trunk or limbs and provides more than half the effort. 7-Radjplkgv-mtalmk does ALL the effort. Patient does none of the effort to complete the activity. Or, the assistance of 2 or more helpers is required for the patient to complete the activity. If activity was not attempted, code reason: 7-Patient Refused. 9-Not Applicable-not attempted and the patient did not perform the activity before the current illness, exacerbation or injury. 10-Not Attempted due to Environmental Limitations-(lack of equipment, weather restraints, etc.). 88-Not Attempted due to Medical Conditions or Safety Concerns. rolls left and right Mod I Exercises Supine Ex: Bridging, Ankle pumps, Quad Set, Rolling, Heel Slides, Short Arc Quads, Straight leg raise, Hip abd/add Supine Reps: 15 (x2) Assessment Current Status: Good Progress PT Short Term Goals Short Term Goals Time Frame: Sep 08, 2021 Roll Left & Right: 4 Sit to lyin Lying to sitting on side of be: 3 Sit to stand: 2 Chair/qvi-da-jknzv transfer: 2 PT Halfway Goals Damaged Freight Inspector Goals PT Halfway Goals Time Frame: Sep 22, 2021 Roll Left & Right (QC): 4 Sit to Lying (QC): 4 Lying-Sitting on Side/Bed(QC): 4 Sit to Stand (QC): 3 Chair/Tnk-nv-Oyzzw Xfer(QC): 3 Toilet Transfer (QC): 3 Car Transfer (QC): 3 Does the Patient Walk: No and Walking Goal NOT indicated Walk 10 feet (QC): 88 Walk 50ft with 2 Turns (QC): 88 Walk 150 ft (QC): 88 Walking 10ft on Uneven Surface: 88 1 Step (curb) (QC): 88 4 Steps (QC): 88 12 Steps (QC): 88 Picking up an Object (QC): 3 Does the Pt use WC or Scooter?: Yes Wheel 50 feet with 2 turns (QC: 3 Type: Manual Wheel 150 feet: 3 Type: Manual PT Plan Treatment/Plan Treatment Plan: Continue Plan of Care Treatment Plan: Bed Mobility, Education, Functional Activity Sara, Functional Strength, Group Therapy, Safety, Therapeutic Exercise, Transfers Treatment Duration: Sep 13, 2021 Frequency: At least 5 of 7 days/Wk (IRF) Estimated Hrs Per Day: 1.5 hours per day Patient and/or Family Agrees t: Yes Safety Risks/Education Patient Education: Correct Positioning Time/GCodes Time In: 1100 Time Out: 1130 Total Billed Treatment Time: 30 Total Billed Treatment 1,EX20,FA10 LILIAN HARRISON PTA Sep 22, 2021 11:30
[2021-09-22 19:30] VITALS: BP 127/75
[2021-09-22] MEDS: ROSUVASTATIN 20 MG (CRESTOR) TABLET PO SCH (20:46)
--- NOTE | 2021-09-23 06:13 | PM&R Progress Note ---
Subjective HPI/CC On Admission Date Seen by Provider: Sep 23, 2021 Time Seen by Provider: 09:30 Subjective/Events-last exam 09/23/2021: Pt improving Bowel training going well. 30 minutes after meals he gets on the commode Much improved status 09/22/2021: Pt improving immensely Easy transfer Bowel routine will be started today 09/21/2021: Pt doing dramatically better Weight-bearing and walking today with 2 assists Gave a morale boost for him now that he was able to walk 09/20/2021: Pt doing pretty well Walked with 3 assistants with a walker today Aguilar is back in Increasing Urecholine 50mg TID and Flomax BID Labs remain stable Last day of Cefepime today 09/19/2021: Patient doing well Wants to go home Aguilar catheter was replaced Supportive care will continue 09/18/2021: Patient doing well Maintained on cefepime Voiding trial per urology No pain is reported 09/17/2021: Patient doing very well Eating and drinking Maintain on cefepime Dr. Gaston will do voiding trial tomorrow 09/16/2021: Patient doing really well Hep-Lock IV fluid Pseudomonas sensitivity not back yet Family training will be soon 09/15/2021: Patient doing better Fever defervesced Aguilar back in White count improved Pseudomonas UTI maintain on cefepime and DC vancomycin Will have family come in for training 09/14/2021: Pt is not feeling well today Fever noted Had to put aguilar back in last night Suspect UTI Chest x-ray will be obtained [place] [id number] Gaston regarding the consultation Cefepime and Vanc will be initiated to cover for pseudomonas and or enterococcus Zofran and IV fluid initiated 09/13/21: Pt is doing pretty well Will attempt to discontinue the catheter today. If he has retention it could be from the spinal cord injury and could very well require it to be indwelling. Labs reviewed Blood sugar is elevated from drinking orange juice all day 09/12/2021: Patient continues to improve No pain is reported Reviewed blood sugars Blood pressure stable 09/11/2021: Patient dramatically improved Loose stools still remain Patient denies pain Moving hands and feet very well 09/10/21: Patient doing remarkably well Gaining function with hands and feet Loose BM's Blood sugars 272 Checked meds and labs 09/09/2021: Patient doing well No pain is reported Blood sugars reviewed Blood pressure reviewed Able to feed himself 09/08/2021: Pt is doing well Eating well Able to feed himself with his right hand Loose stools will be given Imodium 09/07/2021: Pt is doing well Blood sugar is 127 Bowels are loose Coccyx has a decubitus ulcer and we will monitor that closely 09/06/2021: Pt is doing a lot better Hemoglobin was 10.2 Has a decubitus ulcer on his coccyx Low bp so holding Norvasc Pilar lift is being used 09/05/2021: Patient doing really well Requiring Pilar lift though Lovenox started today Blood sugars are variable 09/04/2021: Patient doing very well Requiring Pilar lift since he cannot use the sit to stand at this current time Moving his arms and hands better Blood sugar is a little bit elevated Blood pressure better Lovenox will be started tomorrow 09/03/2021: Pt is doing well Took a shower but then he couldn't really get back in bed Had some emesis so we'll start Protonix 40 mg BID and Carafate Aguilar cath remains due to retention 09/02/2021: Pt settling in well Holding all insulin due to hypoglycemia Had emesis last night Fed himself a bit today Keeping aguilar in for retention Review of Systems General: Fatigue, Malaise Neurological: Weakness, Incoordination Objective Exam Vital Signs Vital Signs Date Time Temp Pulse Resp B/P (MAP) Pulse Ox O2 Delivery O2 Flow Rate FiO2 09/23/21 20:30 Room Air 09/23/21 20:26 36.8 69 18 139/70 (93) 98 Capillary Refill : General Appearance: No Apparent Distress, WD/WN, Chronically ill, Obese HEENT: PERRL/EOMI, Normal ENT Inspection, Pharynx Normal Neck: Full Range of Motion, Normal Inspection, Non Tender, Supple, Carotid Bruit Respiratory: Chest Non Tender, Lungs Clear, Normal Breath Sounds, No Accessory Muscle Use, No Respiratory Distress Cardiovascular: Regular Rate, Rhythm, No Edema, No Gallop, No JVD, No Murmur, Normal Peripheral Pulses Gastrointestinal: Normal Bowel Sounds, No Organomegaly, No Pulsatile Mass, Non Tender, Soft Back: Normal Inspection, No CVA Tenderness, No Vertebral Tenderness, Decreased Range of Motion Extremity: Normal Capillary Refill, Normal Inspection, Normal Range of Motion, Non Tender, No Calf Tenderness, No Pedal Edema Neurologic/Psychiatric: Alert, Oriented x3, Normal Mood/Affect, Abnormal Gait, Motor Weakness Skin: Normal Color, Warm/Dry Lymphatic: No Adenopathy Results/Procedures Lab Patient resulted labs reviewed. FIM Transfers Therapy Code Descriptions/Definitions Functional [place] Measure: 0=Not Assessed/NA 4=Minimal Assistance 1=Total Assistance 5=Supervision or Setup 2=Maximal Assistance 6=Modified [place] 3=Moderate Assistance 7=Complete IndependenceSCALE: Activities may be completed with or without assistive devices. 6-Zgvdnrpokx-sittife completes the activity by him/herself with no assistance from a helper. 5-Set-up or Clean-up Assistance-helper sets up or cleans up; patient completes activity. [place] assists only prior to or following the activity. 4-Supervision or Touching Assistance-helper provides verbal cues and/or touching/steadying and/or contact guard assistance as patient completes activity. Assistance may be provided throughout the activity or intermittently. 3-Partial/Moderate Assistance-helper does LESS THAN HALF the effort. [place] lifts, holds or supports trunk or limbs, but provides less than half the effort. 2-Substantial/Maximal Assistance-helper does MORE THAN HALF the effort. [place] lifts or holds trunk or limbs and provides more than half the effort. 5-Gkxdjbgiz-eaomec does ALL the effort. Patient does none of the effort to complete the activity. Or, the assistance of 2 or more helpers is required for the patient to complete the activity. If activity was not attempted, code reason: 7-Patient Refused. 9-Not Applicable-not attempted and the patient did not perform the activity before the current illness, exacerbation or injury. 10-Not Attempted due to Environmental Limitations-(lack of equipment, weather restraints, etc.). 88-Not Attempted due to Medical Conditions or Safety Concerns. Roll Left to Right (QC): 6 Sit to Lying (QC): 4 Sit to Stand (QC): 4 Chair/Fmy-rp-Qxyhh Xfer(QC): 4 Car Transfer (QC): 88 Gait Training Does the Patient Walk?: Yes Distance: 20'x2 Walk 10 feet (QC): 4 Walk 50 ft with 2 Turns(QC): 4 Walk 150 ft (QC): 88 Walking 10ft/uneven surface-QC: 88 Gait Persons Needed: 1 Gait Assistive Device: FWW Wheelchair Training Does the Pt Use a Wheelchair?: Yes Wheel 50 ft with 2 turns (QC): 4 Wheel 150 ft (QC): 3 Type of Wheelchair: Manual Stair Training 1 Step (curb) (QC): 88 4 Steps (QC): 88 12 Steps (QC): 88 Balance Picking up an Object (QC): 88 ADL-Treatment Eating (QC): 5 Oral Hygiene (QC): 5 Shower/Bathe Self (QC): 3 Upper Body Dressing (QC): 3 Lower Body Dressing (QC): 2 On/Off Footwear (QC): 3 Toileting Hygiene (QC): 1 Toilet Transfer (QC): 3 Assessment/Plan Assessment and Plan Assess & Plan/Chief Complaint Assessment: 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 Diabetes [id number]-[id number] Hypertension Hyperlipidemia Previous CVA with right-sided weakness Coccyx decubitus ulcers Pseudomonas UTI status post SIRS completed treatment with cefepime 09/20/2021 Plan: Aggressive therapy Pain control Monitor bowel function Insulin 09/02/2021: Supportive care Aggressive therapy Hold insulin 09/03/2021: Supportive care Cervical spine collar Aguilar catheter 09/04/2021: Supportive care Cervical spine collar Aguilar catheter Pilar lift We'll start Lovenox tomorrow 09/05/2021: Supportive care Lovenox Maintain Aguilar 09/06/2021: Maintain Aguilar Continues to be Pilar lift 09/07/2021: Coccyx decubitus ulcer management 09/08/2021: Imodium for loose stools Continue to progress 09/09/2021: Imodium for loose stools Supportive care 09/10/2021: Supportive care Dramatic improvement 09/11/2021: Supportive care We will attempt to DC Aguilar catheter this week 09/12/2021: Attempt to DC Aguilar catheter Supportive care 09/13/21: Voiding trial Monitor sugar 09/14/2021: Empiric antibiotics Urology consultation 09/15/2021: DC vancomycin Maintain cefepime 09/16/2021: Maintain cefepime Supportive care Hep-Lock IV fluid 09/17/2021: Maintain antibiotics 09/18/2021: Supportive care Antibiotics 09/19/2021: Supportive care Antibiotics 09/20/2021: Completed cefepime Appreciate urology 09/21/2021: Dramatic improvement Continue supportive care 09/22/2021: Supportive care Bowel routine 09/23/2021: Supportive care Bowel routine (1) Cervical spine syndrome (2) Myoclonus (3) Type 2 diabetes mellitus without complication (4) Primary hypertension (5) Mixed hyperlipidemia (6) History of CVA with residual deficit (7) Right sided weakness (8) Cervical cord myelomalacia (9) Spinal cord contusion (10) Fall Status: Acute SHAYNE JAMES DO Sep 23, 2021 06:13
[2021-09-23] MEDS: SUCRALFATE 1 GM (CARAFATE) TAB PO SCH ×4 (06:42→20:16)
[2021-09-23] MEDS: BETHANECHOL 25 MG (URECHOLINE) TAB PO SCH ×4 (06:42→20:16)
[2021-09-23] MEDS: inSUlin ASPART (NovoLOG) 1 UNIT/0.01 ML (CHARGE PER UNIT) SC SCH ×4 (06:42→20:35)
[2021-09-23 07:34] VITALS: BP 118/66
[2021-09-23] MEDS: ENOXAPARIN 40 MG/0.4 ML (LOVENOX) SYR SC SCH (07:57)
[2021-09-23] MEDS: TAMSULOSIN 0.4 MG (FLOMAX) CAP PO SCH ×2 (07:58→20:16)
[2021-09-23] MEDS: meTOprolol TARTRATE 25 MG (LOPRESSOR) TABLET PO SCH ×2 (07:58→20:16)
[2021-09-23] MEDS: PANTOPRAZOLE 40 MG (PROTONIX) TAB PO SCH ×2 (07:58→20:16)
[2021-09-23] MEDS: amLODIPine 5 MG (NORVASC) TAB PO SCH (07:59)
[2021-09-23] MEDS: HYDROCORTISONE 1% CREAM 30 GM TUBE TOP SCH ×2 (08:01→20:18)
--- NOTE | 2021-09-23 09:05 | Physical Therapy Daily Note ---
PT Daily Note-Current Subjective Pt. agrees to Rx, PT OT co Rx secondary to safety issues, balance, strength, endurance and coordination issues all requiring skilled services of 2 therapists to facilitate ADLs, gait , TRFs etc. Pt. expresses that he is uncomfortable and points to the aguilar catheter, indicates he wants it out and even perhaps that it has been pulled etc. Observation of tubing is intact and anchored properly with give at insertion. Urine is clear Pain Comment: see above, not rated by pt. Mental Status Patient Orientation: Normal For Age Attachments: Aguilar Catheter Transfers SCALE: Activities may be completed with or without assistive devices. 2-Qrnbuplvdp-xgzziak completes the activity by him/herself with no assistance from a helper. 5-Set-up or Clean-up Assistance-helper sets up or cleans up; patient completes activity. [place] assists only prior to or following the activity. 4-Supervision or Touching Assistance-helper provides verbal cues and/or touching/steadying and/or contact guard assistance as patient completes activity. Assistance may be provided throughout the activity or intermittently. 3-Partial/Moderate Assistance-helper does LESS THAN HALF the effort. [place] lifts, holds or supports trunk or limbs, but provides less than half the effort. 2-Substantial/Maximal Assistance-helper does MORE THAN HALF the effort. [place] lifts or holds trunk or limbs and provides more than half the effort. 2-Zyjknhkci-nfymld does ALL the effort. Patient does none of the effort to complete the activity. Or, the assistance of 2 or more helpers is required for the patient to complete the activity. If activity was not attempted, code reason: 7-Patient Refused. 9-Not Applicable-not attempted and the patient did not perform the activity before the current illness, exacerbation or injury. 10-Not Attempted due to Environmental Limitations-(lack of equipment, weather restraints, etc.). 88-Not Attempted due to Medical Conditions or Safety Concerns. Roll Left & Right (QC): 6 Sit to Lying (QC): 6 Sit to Stand (QC): 4 Chair/Jml-pw-Lxhlg Xfer(QC): 4 Toilet Transfer (QC): 4 Gait Training Does the Patient Walk?: Yes Walk 10 feet (QC): 4 Walk 50 ft with 2 Turns(QC): 4 Gait Persons Needed: 1 Gait Assistive Device: FWW gait training 66 ft with 2 turns w/c to follow, pt. needed instruction for narrow MAINOR which he did follow well, pt. with occas poor control and steps too lg a step and needs steadying assistance . Tone noted during gait influencing his balance and control. Gait overall improved Wheelchair Training Does the Pt Use a Wheelchair?: Yes Type of Wheelchair: Manual donated w/c was introduced today. leg rests were removed and left arm rest which is missing was replaced by dycem and pool noodle as psuedo arm rest. Pt. 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 He was not able to propel the w/c more than 10 ft at a time and needed assist. Pt. became fatigued and a bit frustrated. Treatments co Rx : sit to stands, toilet TRF, cleansing afer BM, bowel program successful so far as well as nurses having great success TRFing pt. in SPT fashion. partial sponge bath, dressing at bedside , w/c mob, gait , see above Assessment Current Status: Good Progress this BINGO CASHIER hoping for perhaps 2 sessions of caregiver education and good [facility] operations technician present PT Short Term Goals Short Term Goals Time Frame: Sep 08, 2021 Roll Left & Right: 4 Sit to lyin Lying to sitting on side of be: 3 Sit to stand: 2 Chair/big-kb-xarwz transfer: 2 PT Child Care [facility] Director Goals Jail Goals PT Jail Goals Time Frame: Sep 22, 2021 Roll Left & Right (QC): 4 Sit to Lying (QC): 4 Lying-Sitting on Side/Bed(QC): 4 Sit to Stand (QC): 3 Chair/Rax-ae-Ibajv Xfer(QC): 3 Toilet Transfer (QC): 3 Car Transfer (QC): 3 Does the Patient Walk: No and Walking Goal NOT indicated Walk 10 feet (QC): 88 Walk 50ft with 2 Turns (QC): 88 Walk 150 ft (QC): 88 Walking 10ft on Uneven Surface: 88 1 Step (curb) (QC): 88 4 Steps (QC): 88 12 Steps (QC): 88 Picking up an Object (QC): 3 Does the Pt use WC or Scooter?: Yes Wheel 50 feet with 2 turns (QC: 3 Type: Manual Wheel 150 feet: 3 Type: Manual PT Plan Treatment/Plan Treatment Plan: Continue Plan of Care Treatment Plan: Bed Mobility, Education, Functional Activity Sara, Functional Strength, Group Therapy, Safety, Therapeutic Exercise, Transfers Treatment Duration: Sep 13, 2021 Frequency: At least 5 of 7 days/Wk (IRF) Estimated Hrs Per Day: 1.5 hours per day Patient and/or Family Agrees t: Yes Safety Risks/Education Patient Education: Gait Training, Transfer Techniques, Correct Positioning, W/C Management, Safety Issues Teaching Recipient: Patient Teaching Methods: Demonstration, Discussion Response to Teaching: Verbalize Understanding, Return Demonstration, Reinforcement Needed Time/GCodes Time In: 800 Time Out: 900 Total Billed Treatment Time: 60 Total Billed Treatment 1,FA35m,GT15m,w/c10m LILIAN HARRISON BINGO CASHIER Sep 23, 2021 09:05
--- NOTE | 2021-09-23 09:09 | Occupational Ther Daily Note ---
OT Current Status-Daily Note Subjective Pt reports discomfort/pain in penis. He often points to catheter tubing. RN notified. Appearance Pt returned to supine in bed, all needs within reach. Mental Status/Objective Attachments: Tyson Catheter, IV ADL-Treatment Therapy Code Descriptions/Definitions Functional [place] Measure: 0=Not Assessed/NA 4=Minimal Assistance 1=Total Assistance 5=Supervision or Setup 2=Maximal Assistance 6=Modified [place] 3=Moderate Assistance 7=Complete IndependenceSCALE: Activities may be completed with or without assistive devices. 4-Tzzzcwlwkl-uekyvbf completes the activity by him/herself with no assistance from a helper. 5-Set-up or Clean-up Assistance-helper sets up or cleans up; patient completes activity. [place] assists only prior to or following the activity. 4-Supervision or Touching Assistance-helper provides verbal cues and/or touching/steadying and/or contact guard assistance as patient completes activity. Assistance may be provided throughout the activity or intermittently. 3-Partial/Moderate Assistance-helper does LESS THAN HALF the effort. [place] lifts, holds or supports trunk or limbs, but provides less than half the effort. 2-Substantial/Maximal Assistance-helper does MORE THAN HALF the effort. [place] lifts or holds trunk or limbs and provides more than half the effort. 9-Yyvkvjsrf-kgiizv does ALL the effort. Patient does none of the effort to complete the activity. Or, the assistance of 2 or more helpers is required for the patient to complete the activity. If activity was not attempted, code reason: 7-Patient Refused. 9-Not Applicable-not attempted and the patient did not perform the activity before the current illness, exacerbation or injury. 10-Not Attempted due to Environmental Limitations-(lack of equipment, weather restraints, etc.). 88-Not Attempted due to Medical Conditions or Safety Concerns. Eating (QC): 5 Oral Hygiene (QC): 5 Shower/Bathe Self (QC): 3 Upper Body Dressing (QC): 3 Lower Body Dressing (QC): 1 On/Off Footwear: 3 Toileting Hygiene (QC): 2 Toilet Transfer (QC): 3 Co-treat with PT for part of session (0203-2410) due to need of 2 skilled clinicians to progress indep with adls and mobility. Supine>sit: SBA, extra time and use of bedrail to elevate torso. Sponge bath performed seated EOB. Pt able to wash upper body without assist this. Great improvement in R hip flexion/external rotation and strength in order to bring foot up to contralateral knee to wash. Assist still needed with lifting and maintaining figure 4 position with L. Buttocks cleaned post toileting. Sit<>stand: SBA-CGA. Stand pivot from bed to commode with Min a, 2nd person sba for safety. Continent of BM. Pt attempted to perform latonya care in both sitting and standing. When reaching posteriorly, increased tone exhibited in LE's, thus needing extra assist to maintain balance. Pt cued to return hand to walker. Assist of 1 for balance as 2nd person performed latonya care. Clothing donned seated on Edge of bed. Pt independently initiated cross over method with RLE and threaded foot through brief/shorts without assist. Again, min a needed for L due to weakness and limited flexibility. While standing, pt able to remove single UE support for only a short time before LE extensor tone kicked in. Thus he needed increased balance assist and cue to return BUE's to walker. Mod-Max a required to pull clothing fully up to waist. Mod a to don shirt as pt required assist to pull overhead and down around torso. Education on wearing larger/looser clothing to assist in ease of getting over neck brace. Unsure of comprehension secondary to language barrier. Other Treatment Pt ambulated ~70 feet with Min a x1 and w/c follow/sba of 2nd. Pt motivated to increase walking distance. With visual/verbal cues, pt able to self correct MAINOR during gait this date. 1 episode of knee buckling needing min a to recover. Pt with improved speed/control of LE's this date, but still needs min verbal cues, especially with fatigue, Education OT Patient Education: Correct positioning, Energy conservation, Modified ADL techniques, Progress toward Goal/Update tx plan, Purpose of tx/functional activ ities, Reviewed precautions, Safety issues, Transfer techniques, W/C management Teaching Recipient: Patient Teaching Methods: Demonstration, Discussion Response to Teaching: Return Demonstration, Reinforcement Needed OT Short Term Goals Short Term Goals Time Frame: Sep 22, 2021 Toileting hygiene: 2 Shower/bathe self: 2 Upper body dressin Lower body dressin Putting on/taking off footwear: 3 OT Fpc Goals Fpc Goals Time Frame: Oct 01, 2021 Eating (QC): 5 Oral Hygiene (QC): 6 Toileting Hygiene (QC): 4 Shower/Bathe Self (QC): 4 Upper Body Dressing (QC): 5 Lower Body Dressing (QC): 4 On/Off Footwear (QC): 4 Additional Goals: 1-Demonstrate ADL Tasks, 2-Verbalize Understanding, 3-ImproveStrength/Sara 1=Demonstrate adherence to instructed precautions during ADL tasks. 2=Patient will verbalize/demonstrate understanding of assistive devices/modifications for ADL. 3=Patient will improve strength/tolerance for activity to enable patient to per form ADL's. OT Education/Plan Problem List/Assessment Assessment: Decreased Activ Tolerance, Decreased Safety Aware, Decreased UE Strength, Impaired Coordination, Impaired Funct Balance, Impaired I ADL's, Impai red Self-Care Skills, Restricted Funct UE ROM Discharge Recommendations Plan/Recommendations: Continue POC Treatment Plan/Plan of Care Treatment,Training & Education: Yes Patient would benefit from OT for education, treatment and training to promote independence in ADL's, mobility, safety and/or upper extremity function for ADL's. Plan of Care: ADL Retraining, Functional Mobility, Group Exercise/Act as Ind, UE Funct Exercise/Act, UE Neuromus Re-Ed/Coord Treatment Duration: Oct 01, 2021 Frequency: At least 5 of 7 days/Wk (IRF) Estimated Hrs Per Day: 1.5 hours per day Agreement: Yes Rehab Potential: Fair Time/GCodes Start Time: 07:38 Stop Time: 09:08 Total Time Billed (hr/min): 90 Billed Treatment Time 1 visit ADL x5 (70 min) FA (20 min) Nisreen Lowe OT Sep 23, 2021 09:09
--- NOTE | 2021-09-23 11:31 | Progress Note - Urology ---
Progress Note-Urology Progress Notes/Assess & Plan Progress/Assessment & Plan MORE AMBULATING. PLAN TOV Final Diagnosis RETENTION VICKI DEL ROSARIO MD Sep 23, 2021 11:31
--- NOTE | 2021-09-23 11:35 | Physical Therapy Daily Note ---
PT Daily Note-Current Subjective Pt. agrees to Rx, wants to walk and agrees to try Nustep Pain Location: No Pain Reported Mental Status Patient Orientation: Normal For Age Attachments: Other-See Comments (cervical brace) Transfers SCALE: Activities may be completed with or without assistive devices. 2-Jmypvbtnxb-okvvllc completes the activity by him/herself with no assistance from a helper. 5-Set-up or Clean-up Assistance-helper sets up or cleans up; patient completes activity. [place] assists only prior to or following the activity. 4-Supervision or Touching Assistance-helper provides verbal cues and/or touching/steadying and/or contact guard assistance as patient completes activity. Assistance may be provided throughout the activity or intermittently. 3-Partial/Moderate Assistance-helper does LESS THAN HALF the effort. [place] l ifts, holds or supports trunk or limbs, but provides less than half the effort. 2-Substantial/Maximal Assistance-helper does MORE THAN HALF the effort. [place] lifts or holds trunk or limbs and provides more than half the effort. 8-Bpydeitty-vkvbwm does ALL the effort. Patient does none of the effort to complete the activity. Or, the assistance of 2 or more helpers is required for t he patient to complete the activity. If activity was not attempted, code reason: 7-Patient Refused. 9-Not Applicable-not attempted and the patient did not perform the activity before the current illness, exacerbation or injury. 10-Not Attempted due to Environmental Limitations-(lack of equipment, weather restraints, etc.). 88-Not Attempted due to Medical Conditions or Safety Concerns. Roll Left & Right (QC): 6 Sit to Lying (QC): 6 Lying to Sitting/Side of Bed(Q: 6 Sit to Stand (QC): 4 Chair/Cgv-ju-Ehkdt Xfer(QC): 4 Gait Training Gait Assistive Device: FWW 75ft 50 ft, 20 ft FWW CGA and cuing , w/c to follow Wheelchair Training Does the Pt Use a Wheelchair?: Yes Type of Wheelchair: Manual 40 ft CGA and vcs Exercises NuStep Minutes: 10 NuStep Workload: 2 Assessment Current Status: Good Progress steady and marked progress PT Short Term Goals Short Term Goals Time Frame: Sep 08, 2021 Roll Left & Right: 4 Sit to lyin Lying to sitting on side of be: 3 Sit to stand: 2 Chair/wxu-ix-sxoho transfer: 2 PT Correction Goals Woodenware Assembler Goals PT Correction Goals Time Frame: Sep 22, 2021 Roll Left & Right (QC): 4 Sit to Lying (QC): 4 Lying-Sitting on Side/Bed(QC): 4 Sit to Stand (QC): 3 Chair/Lju-cc-Relqc Xfer(QC): 3 Toilet Transfer (QC): 3 Car Transfer (QC): 3 Does the Patient Walk: No and Walking Goal NOT indicated Walk 10 feet (QC): 88 Walk 50ft with 2 Turns (QC): 88 Walk 150 ft (QC): 88 Walking 10ft on Uneven Surface: 88 1 Step (curb) (QC): 88 4 Steps (QC): 88 12 Steps (QC): 88 Picking up an Object (QC): 3 Does the Pt use WC or Scooter?: Yes Wheel 50 feet with 2 turns (QC: 3 Type: Manual Wheel 150 feet: 3 Type: Manual PT Plan Treatment/Plan Treatment Plan: Continue Plan of Care Treatment Plan: Bed Mobility, Education, Functional Activity Sara, Functional Strength, Group Therapy, Safety, Therapeutic Exercise, Transfers Treatment Duration: Sep 13, 2021 Frequency: At least 5 of 7 days/Wk (IRF) Estimated Hrs Per Day: 1.5 hours per day Patient and/or Family Agrees t: Yes Safety Risks/Education Patient Education: Gait Training, Transfer Techniques, Correct Positioning, Safety Issues Teaching Recipient: Patient Teaching Methods: Demonstration, Discussion Response to Teaching: Verbalize Understanding, Return Demonstration, Reinforcement Needed Time/GCodes Time In: 1100 Time Out: 1130 Total Billed Treatment Time: 30 Total Billed Treatment 1,GT15m,EX15m LILIAN HARRISON PTA Sep 23, 2021 11:35
[2021-09-23] MEDS: ROSUVASTATIN 20 MG (CRESTOR) TABLET PO SCH (20:15)
[2021-09-23 20:26] VITALS: BP 139/70
[2021-09-24] MEDS: inSUlin ASPART (NovoLOG) 1 UNIT/0.01 ML (CHARGE PER UNIT) SC SCH ×4 (05:32→20:07)
[2021-09-24] MEDS: BETHANECHOL 25 MG (URECHOLINE) TAB PO SCH ×4 (05:34→20:08)
[2021-09-24] MEDS: SUCRALFATE 1 GM (CARAFATE) TAB PO SCH ×4 (05:34→20:08)
--- NOTE | 2021-09-24 06:36 | PM&R Progress Note ---
Subjective HPI/CC On Admission Date Seen by Provider: Sep 24, 2021 Time Seen by Provider: 11:45 Subjective/Events-last exam 09/24/2021: Patient doing much better Family training today Voiding very well Urecholine and Flomax working very well for him 09/23/2021: Pt improving Bowel training going well. 30 minutes after meals he gets on the commode Much improved status 09/22/2021: Pt improving immensely Easy transfer Bowel routine will be started today 09/21/2021: Pt doing dramatically better Weight-bearing and walking today with 2 assists Gave a morale boost for him now that he was able to walk 09/20/2021: Pt doing pretty well Walked with 3 assistants with a walker today Aguilar is back in Increasing Urecholine 50mg TID and Flomax BID Labs remain stable Last day of Cefepime today 09/19/2021: Patient doing well Wants to go home Aguilar catheter was replaced Supportive care will continue 09/18/2021: Patient doing well Maintained on cefepime Voiding trial per urology No pain is reported 09/17/2021: Patient doing very well Eating and drinking Maintain on cefepime Dr. Gaston will do voiding trial tomorrow 09/16/2021: Patient doing really well Hep-Lock IV fluid Pseudomonas sensitivity not back yet Family training will be soon 09/15/2021: Patient doing better Fever defervesced Aguilar back in White count improved Pseudomonas UTI maintain on cefepime and DC vancomycin Will have family come in for training 09/14/2021: Pt is not feeling well today Fever noted Had to put aguilar back in last night Suspect UTI Chest x-ray will be obtained also [place] [id number] Gaston regarding the consultation Cefepime and Vanc will be initiated to cover for pseudomonas and or enterococcus Zofran and IV fluid initiated 09/13/21: Pt is doing pretty well Will attempt to discontinue the catheter today. If he has retention it could be from the spinal cord injury and could very well require it to be indwelling. Labs reviewed Blood sugar is elevated from drinking orange juice all day 09/12/2021: Patient continues to improve No pain is reported Reviewed blood sugars Blood pressure stable 09/11/2021: Patient dramatically improved Loose stools still remain Patient denies pain Moving hands and feet very well 09/10/21: Patient doing remarkably well Gaining function with hands and feet Loose BM's Blood sugars 272 Checked meds and labs 09/09/2021: Patient doing well No pain is reported Blood sugars reviewed Blood pressure reviewed Able to feed himself 09/08/2021: Pt is doing well Eating well Able to feed himself with his right hand Loose stools will be given Imodium 09/07/2021: Pt is doing well Blood sugar is 127 Bowels are loose Coccyx has a decubitus ulcer and we will monitor that closely 09/06/2021: Pt is doing a lot better Hemoglobin was 10.2 Has a decubitus ulcer on his coccyx Low bp so holding Norvasc Pilar lift is being used 09/05/2021: Patient doing really well Requiring Pilar lift though Lovenox started today Blood sugars are variable 09/04/2021: Patient doing very well Requiring Pilar lift since he cannot use the sit to stand at this current time Moving his arms and hands better Blood sugar is a little bit elevated Blood pressure better Lovenox will be started tomorrow 09/03/2021: Pt is doing well Took a shower but then he couldn't really get back in bed Had some emesis so we'll start Protonix 40 mg BID and Carafate Aguilar cath remains due to retention 09/02/2021: Pt settling in well Holding all insulin due to hypoglycemia Had emesis last night Fed himself a bit today Keeping aguilar in for retention Review of Systems General: Fatigue, Malaise Genitourinary: Retention Neurological: Weakness, Incoordination Objective Exam Vital Signs Vital Signs Date Time Temp Pulse Resp B/P (MAP) Pulse Ox O2 Delivery O2 Flow Rate FiO2 09/24/21 20:13 Room Air 09/24/21 20:06 37.0 67 16 110/58 (75) 97 Capillary Refill : General Appearance: No Apparent Distress, WD/WN, Chronically ill, Obese HEENT: PERRL/EOMI, Normal ENT Inspection, Pharynx Normal Neck: Full Range of Motion, Normal Inspection, Non Tender, Supple, Carotid Bruit Respiratory: Chest Non Tender, Lungs Clear, Normal Breath Sounds, No Accessory Muscle Use, No Respiratory Distress Cardiovascular: Regular Rate, Rhythm, No Edema, No Gallop, No JVD, No Murmur, Normal Peripheral Pulses Gastrointestinal: Normal Bowel Sounds, No Organomegaly, No Pulsatile Mass, Non Tender, Soft Back: Normal Inspection, No CVA Tenderness, No Vertebral Tenderness, Decreased Range of Motion Extremity: Normal Capillary Refill, Normal Inspection, Normal Range of Motion, Non Tender, No Calf Tenderness, No Pedal Edema Neurologic/Psychiatric: Alert, Oriented x3, Normal Mood/Affect, Abnormal Gait, Motor Weakness Skin: Normal Color, Warm/Dry Lymphatic: No Adenopathy Results/Procedures Lab Patient resulted labs reviewed. FIM Transfers Therapy Code Descriptions/Definitions Functional [place] Measure: 0=Not Assessed/NA 4=Minimal Assistance 1=Total Assistance 5=Supervision or Setup 2=Maximal Assistance 6=Modified [place] 3=Moderate Assistance 7=Complete IndependenceSCALE: Activities may be completed with or without assistive devices. 0-Cvbgrwmevo-twyvwym completes the activity by him/herself with no assistance from a helper. 5-Set-up or Clean-up Assistance-helper sets up or cleans up; patient completes activity. [place] assists only prior to or following the activity. 4-Supervision or Touching Assistance-helper provides verbal cues and/or touching/steadying and/or contact guard assistance as patient completes activity. Assistance may be provided throughout the activity or intermittently. 3-Partial/Moderate Assistance-helper does LESS THAN HALF the effort. [place] lifts, holds or supports trunk or limbs, but provides less than half the effort. 2-Substantial/Maximal Assistance-helper does MORE THAN HALF the effort. [place] lifts or holds trunk or limbs and provides more than half the effort. 0-Otqqpijwp-cutjdg does ALL the effort. Patient does none of the effort to complete the activity. Or, the assistance of 2 or more helpers is required for the patient to complete the activity. If activity was not attempted, code reason: 7-Patient Refused. 9-Not Applicable-not attempted and the patient did not perform the activity before the current illness, exacerbation or injury. 10-Not Attempted due to Environmental Limitations-(lack of equipment, weather restraints, etc.). 88-Not Attempted due to Medical Conditions or Safety Concerns. Roll Left to Right (QC): 6 Sit to Lying (QC): 6 Sit to Stand (QC): 4 Chair/Hze-lf-Avakh Xfer(QC): 4 Car Transfer (QC): 88 Gait Training Does the Patient Walk?: Yes Distance: 20'x2 Walk 10 feet (QC): 4 Walk 50 ft with 2 Turns(QC): 4 Walk 150 ft (QC): 88 Walking 10ft/uneven surface-QC: 88 Gait Persons Needed: 1 Gait Assistive Device: FWW Wheelchair Training Does the Pt Use a Wheelchair?: Yes Wheel 50 ft with 2 turns (QC): 4 Wheel 150 ft (QC): 3 Type of Wheelchair: Manual Stair Training 1 Step (curb) (QC): 88 4 Steps (QC): 88 12 Steps (QC): 88 Balance Picking up an Object (QC): 88 ADL-Treatment Eating (QC): 5 Oral Hygiene (QC): 5 Shower/Bathe Self (QC): 3 Upper Body Dressing (QC): 3 Lower Body Dressing (QC): 1 On/Off Footwear (QC): 3 Toileting Hygiene (QC): 2 Toilet Transfer (QC): 3 Assessment/Plan Assessment and Plan Assess & Plan/Chief Complaint Assessment: 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 Diabetes idl-yq-vsviqgf Hypertension Hyperlipidemia Previous CVA with right-sided weakness Coccyx decubitus ulcers Pseudomonas UTI status post SIRS completed treatment with cefepime 09/20/2021 Plan: Aggressive therapy Pain control Monitor bowel function Insulin 09/02/2021: Supportive care Aggressive therapy Hold insulin 09/03/2021: Supportive care Cervical spine collar Aguilar catheter 09/04/2021: Supportive care Cervical spine collar Aguilar catheter Pilar lift We'll start Lovenox tomorrow 09/05/2021: Supportive care Lovenox Maintain Aguilar 09/06/2021: Maintain Aguilar Continues to be Pilar lift 09/07/2021: Coccyx decubitus ulcer management 09/08/2021: Imodium for loose stools Continue to progress 09/09/2021: Imodium for loose stools Supportive care 09/10/2021: Supportive care Dramatic improvement 09/11/2021: Supportive care We will attempt to DC Aguilar catheter this week 09/12/2021: Attempt to DC Aguilar catheter Supportive care 09/13/21: Voiding trial Monitor sugar 09/14/2021: Empiric antibiotics Urology consultation 09/15/2021: DC vancomycin Maintain cefepime 09/16/2021: Maintain cefepime Supportive care Hep-Lock IV fluid 09/17/2021: Maintain antibiotics 09/18/2021: Supportive care Antibiotics 09/19/2021: Supportive care Antibiotics 09/20/2021: Completed cefepime Appreciate urology 09/21/2021: Dramatic improvement Continue supportive care 09/22/2021: Supportive care Bowel routine 09/23/2021: Supportive care Bowel routine 09/24/2021: Aguilar discontinued Voiding very well (1) Cervical spine syndrome (2) Myoclonus (3) Type 2 diabetes mellitus without complication (4) Primary hypertension (5) Mixed hyperlipidemia (6) History of CVA with residual deficit (7) Right sided weakness (8) Cervical cord myelomalacia (9) Spinal cord contusion (10) Fall Status: Acute [place] JAMESJj MCGEE Sep 24, 2021 06:36
[2021-09-24 07:20] VITALS: BP 121/70
[2021-09-24] MEDS: amLODIPine 5 MG (NORVASC) TAB PO SCH (07:51)
[2021-09-24] MEDS: meTOprolol TARTRATE 25 MG (LOPRESSOR) TABLET PO SCH ×2 (07:51→20:08)
[2021-09-24] MEDS: PANTOPRAZOLE 40 MG (PROTONIX) TAB PO SCH ×2 (07:51→20:08)
[2021-09-24] MEDS: ENOXAPARIN 40 MG/0.4 ML (LOVENOX) SYR SC SCH (07:53)
[2021-09-24] MEDS: HYDROCORTISONE 1% CREAM 30 GM TUBE TOP SCH ×2 (07:55→20:09)
[2021-09-24] MEDS: TAMSULOSIN 0.4 MG (FLOMAX) CAP PO SCH ×2 (07:55→20:08)
--- NOTE | 2021-09-24 08:37 | Physical Therapy Daily Note ---
PT Daily Note-Current Subjective Pt. in bed agrees to Rx, some difficulty with language barrier this Rx, as pt. wonders why he is not having a bath etc. This SOCIAL SCIENCE TEACHER attempted to explain that there would be a co Rx with family for education at 1000 am. Pt. agrees to toileting on BSC and requests urinal while he is on the BSC. Pt. successful with BM and urinating . No c/o pain this morning. Pain Location: No Pain Reported Mental Status Patient Orientation: Normal For Age Attachments: Other-See Comments (cervical collar brace) Transfers SCALE: Activities may be completed with or without assistive devices. 6-Ymkfizzfrm-ngrulvi completes the activity by him/herself with no assistance from a helper. 5-Set-up or Clean-up Assistance-helper sets up or cleans up; patient completes activity. [place] assists only prior to or following the activity. 4-Supervision or Touching Assistance-helper provides verbal cues and/or touching/steadying and/or contact guard assistance as patient completes activity. Assistance may be provided throughout the activity or intermittently. 3-Partial/Moderate Assistance-helper does LESS THAN HALF the effort. [place] lifts, holds or supports trunk or limbs, but provides less than half the effort. 2-Substantial/Maximal Assistance-helper does MORE THAN HALF the effort. [place] lifts or holds trunk or limbs and provides more than half the effort. 0-Vrlewgucu-zsevgv does ALL the effort. Patient does none of the effort to complete the activity. Or, the assistance of 2 or more helpers is required for the patient to complete the activity. If activity was not attempted, code reason: 7-Patient Refused. 9-Not Applicable-not attempted and the patient did not perform the activity before the current illness, exacerbation or injury. 10-Not Attempted due to Environmental Limitations-(lack of equipment, weather restraints, etc.). 88-Not Attempted due to Medical Conditions or Safety Concerns. Roll Left & Right (QC): 6 Lying to Sitting/Side of Bed(Q: 6 Sit to Stand (QC): 4 Chair/Xpq-zb-Foich Xfer(QC): 4 Toilet Transfer (QC): 4 pt. requires CGA to min assist for sit to stand as well as SPT , tone noted , with toilet TRF pt. needed max assist for clean up as well as mod to max assist for pants up. Gait Training Does the Patient Walk?: Yes Walk 10 feet (QC): 4 Gait Persons Needed: 1 Gait Assistive Device: FWW 30ftx2 FWW CGA, some retropulsion , good MAINOR, good step length Exercises Supine Ex: Rolling, Scooting Supine Reps: 10 Seated Therapy Exercises: Sit to stand, Long arc quads, Hip flexion Seated Reps: 8 Treatments TRFs, toileting with good success with control as pt. was able to urinate into urinal and have lg BM , max assist pants up and down and with clean up, pt. hesitating to try this himself this date. gait 30 ft x 2 FWW min to CGA no LOB, up in w/c after Rx with LE elevated, educated pt. on importance of upright position during day and explained how to possibly become more comfortable in the recliner etc. call diaz and phones at hand Assessment Current Status: Good Progress meeting goals, family to come at 1000 for training PT Short Term Goals Short Term Goals Time Frame: Sep 08, 2021 Roll Left & Right: 4 Sit to lyin Lying to sitting on side of be: 3 Sit to stand: 2 Chair/vci-lj-tenoc transfer: 2 PT Usp Goals Usp Goals PT Usp Goals Time Frame: Sep 22, 2021 Roll Left & Right (QC): 4 Sit to Lying (QC): 4 Lying-Sitting on Side/Bed(QC): 4 Sit to Stand (QC): 3 Chair/Oxe-xc-Fxnlj Xfer(QC): 3 Toilet Transfer (QC): 3 Car Transfer (QC): 3 Does the Patient Walk: No and Walking Goal NOT indicated Walk 10 feet (QC): 88 Walk 50ft with 2 Turns (QC): 88 Walk 150 ft (QC): 88 Walking 10ft on Uneven Surface: 88 1 Step (curb) (QC): 88 4 Steps (QC): 88 12 Steps (QC): 88 Picking up an Object (QC): 3 Does the Pt use WC or Scooter?: Yes Wheel 50 feet with 2 turns (QC: 3 Type: Manual Wheel 150 feet: 3 Type: Manual PT Plan Treatment/Plan Treatment Plan: Continue Plan of Care Treatment Plan: Bed Mobility, Education, Functional Activity Sara, Functional Strength, Group Therapy, Safety, Therapeutic Exercise, Transfers Treatment Duration: Sep 13, 2021 Frequency: At least 5 of 7 days/Wk (IRF) Estimated Hrs Per Day: 1.5 hours per day Patient and/or Family Agrees t: Yes Safety Risks/Education Patient Education: Gait Training, Transfer Techniques, Correct Positioning, Safety Issues Teaching Recipient: Patient Teaching Methods: Demonstration, Discussion Response to Teaching: Verbalize Understanding, Return Demonstration, Reinforcement Needed Time/GCodes Time In: 800 Time Out: 830 Total Billed Treatment Time: 30 Total Billed Treatment 1,FA15m,GT15m LILIAN HARRISON PTA Sep 24, 2021 08:37
--- NOTE | 2021-09-24 09:05 | Occupational Ther Daily Note ---
OT Current Status-Daily Note Subjective Pt denies pain, agreeable to treatment. Appearance Pt returned to sitting in recliner, all needs within reach, nursing staff in the room. Mental Status/Objective Attachments: IV ADL-Treatment Therapy Code Descriptions/Definitions Functional [place] Measure: 0=Not Assessed/NA 4=Minimal Assistance 1=Total Assistance 5=Supervision or Setup 2=Maximal Assistance 6=Modified [place] 3=Moderate Assistance 7=Complete IndependenceSCALE: Activities may be completed with or without assistive devices. 2-Rvqlxbfpns-sijqvsf completes the activity by him/herself with no assistance from a helper. 5-Set-up or Clean-up Assistance-helper sets up or cleans up; patient completes activity. [place] assists only prior to or following the activity. 4-Supervision or Touching Assistance-helper provides verbal cues and/or touching/steadying and/or contact guard assistance as patient completes activity. Assistance may be provided throughout the activity or intermittently. 3-Partial/Moderate Assistance-helper does LESS THAN HALF the effort. [place] lifts, holds or supports trunk or limbs, but provides less than half the effort. 2-Substantial/Maximal Assistance-helper does MORE THAN HALF the effort. [place] lifts or holds trunk or limbs and provides more than half the effort. 4-Toagmclxx-haypdk does ALL the effort. Patient does none of the effort to complete the activity. Or, the assistance of 2 or more helpers is required for the patient to complete the activity. If activity was not attempted, code reason: 7-Patient Refused. 9-Not Applicable-not attempted and the patient did not perform the activity before the current illness, exacerbation or injury. 10-Not Attempted due to Environmental Limitations-(lack of equipment, weather restraints, etc.). 88-Not Attempted due to Medical Conditions or Safety Concerns. Oral Hygiene (QC): 6 On/Off Footwear: 3 Toilet Transfer (QC): 3 Pt sitting in recliner at OT arrival. Sit<>stand: SBA-CGA. He ambulated to/from bathroom with CGA-Min a and use of walker. Min cues for widening MAINOR during gait. Extra time to manipulate walker, but no hands on assist needed this date. Pt sat at sink to complete grooming tasks, indep this date, extra time only for manipulating supplies. Pt then completed toilet transfer x6 with emphasis on improving LE strength, endurance, balance, and safety during functional transfers. ~10-15 sec rest after each sit<>stand. Pt initially CGA but requires min-mod a for lifting boost during last 3 bouts. Pt then ambulated back to chair, CGA, no knee buckling observed. Education OT Patient Education: Correct positioning, Modified ADL techniques, Progress toward Goal/Update tx plan, Purpose of tx/functional activities, Safety issues, Transfer techniques Teaching Recipient: Patient Teaching Methods: Discussion Response to Teaching: Return Demonstration, Reinforcement Needed OT Short Term Goals Short Term Goals Time Frame: Sep 22, 2021 Toileting hygiene: 2 Shower/bathe self: 2 Upper body dressin Lower body dressin Putting on/taking off footwear: 3 OT Halfway Goals Finishing Trimmer Goals Time Frame: Oct 01, 2021 Eating (QC): 5 Oral Hygiene (QC): 6 Toileting Hygiene (QC): 4 Shower/Bathe Self (QC): 4 Upper Body Dressing (QC): 5 Lower Body Dressing (QC): 4 On/Off Footwear (QC): 4 Additional Goals: 1-Demonstrate ADL Tasks, 2-Verbalize Understanding, 3- ImproveStrength/Sara 1=Demonstrate adherence to instructed precautions during ADL tasks. 2=Patient will verbalize/demonstrate understanding of assistive devices/modifications for ADL. 3=Patient will improve strength/tolerance for activity to enable patient to perform ADL's. OT Education/Plan Problem List/Assessment Assessment: Decreased Activ Tolerance, Decreased Safety Aware, Decreased UE Strength, Impaired Coordination, Impaired Funct Balance, Impaired I ADL's, Impaired Self-Care Skills, Restricted Funct UE ROM Discharge Recommendations Plan/Recommendations: Continue POC Treatment Plan/Plan of Care Treatment,Training & Education: Yes Patient would benefit from OT for education, treatment and training to promote independence in ADL's, mobility, safety and/or upper extremity function for ADL's. Plan of Care: ADL Retraining, Functional Mobility, Group Exercise/Act as Ind, UE Funct Exercise/Act, UE Neuromus Re-Ed/Coord Treatment Duration: Oct 01, 2021 Frequency: At least 5 of 7 days/Wk (IRF) Estimated Hrs Per Day: 1.5 hours per day Agreement: Yes Rehab Potential: Fair Time/GCodes Start Time: 08:30 Stop Time: 09:05 Total Time Billed (hr/min): 35 Billed Treatment Time 1 visit ADL x2 Nisreen Lowe OT Sep 24, 2021 09:05
--- NOTE | 2021-09-24 10:59 | Physical Therapy Daily Note ---
PT Daily Note-Current Subjective Pt. agrees to Rx. Seems very subdued today, usually smiling and happy to see progress, seems a bit bewildered when told his family is coming for training. Co Rx PT OT secondary to balance deficit, weakness, poor act tolerance and the prospect that family were coming to give skilled therapists chance to train them etc. No c/o pain, does express minor fatigue with "WHEW". Pt seemed more subdued and perhaps sad as family did not show up. Pain Location: No Pain Reported Mental Status Patient Orientation: Normal For Age Attachments: Other-See Comments (cervical brace) Transfers SCALE: Activities may be completed with or without assistive devices. 9-Soxawvrnkx-inlcult completes the activity by him/herself with no assistance from a helper. 5-Set-up or Clean-up Assistance-helper sets up or cleans up; patient completes activity. [place] assists only prior to or following the activity. 4-Supervision or Touching Assistance-helper provides verbal cues and/or touching/steadying and/or contact guard assistance as patient completes activity. Assistance may be provided throughout the activity or intermittently. 3-Partial/Moderate Assistance-helper does LESS THAN HALF the effort. [place] li fts, holds or supports trunk or limbs, but provides less than half the effort. 2-Substantial/Maximal Assistance-helper does MORE THAN HALF the effort. [place] lifts or holds trunk or limbs and provides more than half the effort. 6-Jllozadsx-qczgax does ALL the effort. Patient does none of the effort to complete the activity. Or, the assistance of 2 or more helpers is required for the patient to complete the activity. If activity was not attempted, code reason: 7-Patient Refused. 9-Not Applicable-not attempted and the patient did not perform the activity before the current illness, exacerbation or injury. 10-Not Attempted due to Environmental Limitations-(lack of equipment, weather restraints, etc.). 88-Not Attempted due to Medical Conditions or Safety Concerns. Roll Left & Right (QC): 6 Sit to Lying (QC): 6 Lying to Sitting/Side of Bed(Q: 6 Sit to Stand (QC): 4 Chair/Qbb-xa-Anzwv Xfer(QC): 4 Car Transfer (QC): 4 pts. initial trial of car TRF with pt. needing min to CGA Gait Training Does the Patient Walk?: Yes Gait Assistive Device: FWW 75 ft x 2, 60 ft x 1, FWW min assist at turns, as pt leans heavy at times to right and has narrow MAINOR, pt does correct with cues. Wheelchair Training Does the Pt Use a Wheelchair?: Yes Type of Wheelchair: Manual pt. occas needs assist to brake, indep but slow in a w/c that accommodates him well. Stair Training Stair Training: Handrails/: 1 handrail #of Steps: 2 1 Step (curb) (QC): 3 Stairs: Pattern: Step to pt. was assisted on steps with rail on right as he states he will have at home while ascending steps, this was trialed with pts tone increasing and pt. requiring mod assist 2 to back down steps and sit in w/c, a single step was then used with FWW with more success, supposedly pt will have 3 steps and one rail at home. This [employer] is hopeful family can bump him up in w/c as at this time ascending steps is a vulnerable task Treatments pt. performed standing /reaching dynamic activity moving cones from lower surface to higher surface, one hand on walker and one reaching alternating left and right with OT instruction with no LOB CGA Assessment Current Status: Good Progress Pt appears depressed today, possibly concerned about his future, his DC plans and his finances. Pts. family did eventually come this date but the window of availability for the treating therapists had passed as we were on to other scheduled patients. Family to return Mon for training at 1000am. Pt has made much progress with regards to TRFs, gait and B&B program, hoping pts gait with FWW conts to improve as the practical functionality of a w/c in his duplex does not sound feasible except for the hopes that family might bump him up ad down the 3 steps to the entrance of his home in the w/c. This [employer] CONSULTANT will attempt to simulate this on Mon during training PT Short Term Goals Short Term Goals Time Frame: Sep 08, 2021 Roll Left & Right: 4 Sit to lyin Lying to sitting on side of be: 3 Sit to stand: 2 Chair/uql-tg-acydu transfer: 2 PT Supervisor [place] Goals Supervisor [place] Goals PT Snf Goals Time Frame: Sep 22, 2021 Roll Left & Right (QC): 4 Sit to Lying (QC): 4 Lying-Sitting on Side/Bed(QC): 4 Sit to Stand (QC): 3 Chair/Ujz-wu-Qfqov Xfer(QC): 3 Toilet Transfer (QC): 3 Car Transfer (QC): 3 Does the Patient Walk: No and Walking Goal NOT indicated Walk 10 feet (QC): 88 Walk 50ft with 2 Turns (QC): 88 Walk 150 ft (QC): 88 Walking 10ft on Uneven Surface: 88 1 Step (curb) (QC): 88 4 Steps (QC): 88 12 Steps (QC): 88 Picking up an Object (QC): 3 Does the Pt use WC or Scooter?: Yes Wheel 50 feet with 2 turns (QC: 3 Type: Manual Wheel 150 feet: 3 Type: Manual PT Plan Treatment/Plan Treatment Plan: Continue Plan of Care Treatment Plan: Bed Mobility, Education, Functional Activity Sara, Functional Strength, Group Therapy, Safety, Therapeutic Exercise, Transfers Treatment Duration: Sep 13, 2021 Frequency: At least 5 of 7 days/Wk (IRF) Estimated Hrs Per Day: 1.5 hours per day Patient and/or Family Agrees t: Yes Safety Risks/Education Patient Education: Gait Training, Transfer Techniques, Steps, Reviewed Precautions, Correct Positioning, Disease Process, Safety Issues Teaching Recipient: Patient Teaching Methods: Demonstration, Discussion Response to Teaching: Verbalize Understanding, Return Demonstration, Reinforcement Needed Time/GCodes Time In: 1000 Time Out: 1100 Total Billed Treatment Time: 60 Total Billed Treatment 1,FA35m,GT25m co Rx 60m LILIAN HARRISON PTA Sep 24, 2021 10:59
--- NOTE | 2021-09-24 11:02 | Occupational Ther Daily Note ---
OT Current Status-Daily Note Subjective Pt reports he had not spoken with family this morning. Family training scheduled for 1000. Co-treat with PT due to need of 2 skilled clinicians to progress indep with adls and mobility. Appearance Pt left supine in bed, all needs within reach. ADL-Treatment Therapy Code Descriptions/Definitions Functional [place] Measure: 0=Not Assessed/NA 4=Minimal Assistance 1=Total Assistance 5=Supervision or Setup 2=Maximal Assistance 6=Modified [place] 3=Moderate Assistance 7=Complete IndependenceSCALE: Activities may be completed with or without assistive devices. 7-Rpdiyolouc-ogagnar completes the activity by him/herself with no assistance from a helper. 5-Set-up or Clean-up Assistance-helper sets up or cleans up; patient completes activity. [place] assists only prior to or following the activity. 4-Supervision or Touching Assistance-helper provides verbal cues and/or touching/steadying and/or contact guard assistance as patient completes activity. Assistance may be provided throughout the activity or intermittently. 3-Partial/Moderate Assistance-helper does LESS THAN HALF the effort. [place] lifts, holds or supports trunk or limbs, but provides less than half the effort. 2-Substantial/Maximal Assistance-helper does MORE THAN HALF the effort. [place] lifts or holds trunk or limbs and provides more than half the effort. 7-Zdwggtzbh-qhgumm does ALL the effort. Patient does none of the effort to complete the activity. Or, the assistance of 2 or more helpers is required for the patient to complete the activity. If activity was not attempted, code reason: 7-Patient Refused. 9-Not Applicable-not attempted and the patient did not perform the activity before the current illness, exacerbation or injury. 10-Not Attempted due to Environmental Limitations-(lack of equipment, weather restraints, etc.). 88-Not Attempted due to Medical Conditions or Safety Concerns. Other Treatment Pt/family scheduled for family training at 1000. Family did not show up. Pt ambulated throughout unit, 50-70 feet each bout, cga of 1. Extra time to manipulate walker, especially with turns. Continues to need min cues for widening MAINOR. While in therapy gym, pt participated in dynamic standing activity with goal to promote increased balance, endurance, and to reduce UE support in order to perform functional tasks such as clothing management. Pt stood with unilateral UE support on walker as other reached/grasped and transported cones from low to high shelf. Activity completed x2 with both R and L UE's. Pt requires min-mod a when reaching overhead with LUE due to weakness and limited shoulder AROM. Slight increase in LE extensor tone exhibited when removing hand from walker. Cues for positioning of feet. CGA-Min a for balance throughout activity. Attempt to complete stairs, but significant extensor tone kicked in after first step (again, pt only utilized 1UE for support). Pt required 2-3 people to step down. With walker (and BUE support), pt was able to step over 1 small step with min-mod a x2. Education OT Patient Education: Correct positioning, Energy conservation, Modified ADL techniques, Progress toward Goal/Update tx plan, Purpose of tx/functional activi ties, Reviewed precautions, Rehab process, Safety issues, Transfer techniques, W/C management Teaching Recipient: Patient Teaching Methods: Demonstration, Discussion Response to Teaching: Return Demonstration, Reinforcement Needed OT Short Term Goals Short Term Goals Time Frame: Sep 22, 2021 Toileting hygiene: 2 Shower/bathe self: 2 Upper body dressin Lower body dressin Putting on/taking off footwear: 3 OT Director Telecommunications Goals Assisted Goals Time Frame: Oct 01, 2021 Eating (QC): 5 Oral Hygiene (QC): 6 Toileting Hygiene (QC): 4 Shower/Bathe Self (QC): 4 Upper Body Dressing (QC): 5 Lower Body Dressing (QC): 4 On/Off Footwear (QC): 4 Additional Goals: 1-Demonstrate ADL Tasks, 2-Verbalize Understanding, 3- ImproveStrength/Sara 1=Demonstrate adherence to instructed precautions during ADL tasks. 2=Patient will verbalize/demonstrate understanding of assistive devices/modifications for ADL. 3=Patient will improve strength/tolerance for activity to enable patient to perform ADL's. OT Education/Plan Problem List/Assessment Assessment: Decreased Activ Tolerance, Decreased Safety Aware, Decreased UE Strength, Impaired Coordination, Impaired Funct Balance, Impaired I ADL's, Impaired Self-Care Skills, Restricted Funct UE ROM Discharge Recommendations Plan/Recommendations: Continue POC Treatment Plan/Plan of Care Treatment,Training & Education: Yes Patient would benefit from OT for education, treatment and training to promote independence in ADL's, mobility, safety and/or upper extremity function for ADL's. Plan of Care: ADL Retraining, Functional Mobility, Group Exercise/Act as Ind, UE Funct Exercise/Act, UE Neuromus Re-Ed/Coord Treatment Duration: Oct 01, 2021 Frequency: At least 5 of 7 days/Wk (IRF) Estimated Hrs Per Day: 1.5 hours per day Agreement: Yes Rehab Potential: Fair Time/GCodes Start Time: 10:00 Stop Time: 11:00 Total Time Billed (hr/min): 60 Billed Treatment Time 1 visit FA x4 Nsireen Lowe OT Sep 24, 2021 11:02
[2021-09-24 20:06] VITALS: BP 110/58
[2021-09-24] MEDS: ROSUVASTATIN 20 MG (CRESTOR) TABLET PO SCH (20:08)
[2021-09-25] MEDS: BETHANECHOL 25 MG (URECHOLINE) TAB PO SCH ×4 (06:26→21:25)
[2021-09-25] MEDS: inSUlin ASPART (NovoLOG) 1 UNIT/0.01 ML (CHARGE PER UNIT) SC SCH ×4 (06:26→21:10)
[2021-09-25] MEDS: SUCRALFATE 1 GM (CARAFATE) TAB PO SCH ×4 (06:26→21:25)
[2021-09-25 07:28] VITALS: BP 106/59
--- NOTE | 2021-09-25 07:30 | PM&R Progress Note ---
Subjective HPI/CC On Admission Date Seen by Provider: Sep 25, 2021 Time Seen by Provider: 11:00 Subjective/Events-last exam 09/25/2021: Patient doing well Voiding well No new pain Start oral hypoglycemic tomorrow 09/24/2021: Patient doing much better Family training today Voiding very well Urecholine and Flomax working very well for him 09/23/2021: Pt improving Bowel training going well. 30 minutes after meals he gets on the commode Much improved status 09/22/2021: Pt improving immensely Easy transfer Bowel routine will be started today 09/21/2021: Pt doing dramatically better Weight-bearing and walking today with 2 assists Gave a morale boost for him now that he was able to walk 09/20/2021: Pt doing pretty well Walked with 3 assistants with a walker today Aguilar is back in Increasing Urecholine 50mg TID and Flomax BID Labs remain stable Last day of Cefepime today 09/19/2021: Patient doing well Wants to go home Aguilar catheter was replaced Supportive care will continue 09/18/2021: Patient doing well Maintained on cefepime Voiding trial per urology No pain is reported 09/17/2021: Patient doing very well Eating and drinking Maintain on cefepime Dr. Gaston will do voiding trial tomorrow 09/16/2021: Patient doing really well Hep-Lock IV fluid Pseudomonas sensitivity not back yet Family training will be soon 09/15/2021: Patient doing better Fever defervesced Aguilar back in White count improved Pseudomonas UTI maintain on cefepime and DC vancomycin Will have family come in for training 09/14/2021: Pt is not feeling well today Fever noted Had to put aguilar back in last night Suspect UTI Chest x-ray will be obtained [place] [id number] Gaston regarding the consultation Cefepime and Vanc will be initiated to cover for pseudomonas and or enterococcus Zofran and IV fluid initiated 09/13/21: Pt is doing pretty well Will attempt to discontinue the catheter today. If he has retention it could be from the spinal cord injury and could very well require it to be indwelling. Labs reviewed Blood sugar is elevated from drinking orange juice all day 09/12/2021: Patient continues to improve No pain is reported Reviewed blood sugars Blood pressure stable 09/11/2021: Patient dramatically improved Loose stools still remain Patient denies pain Moving hands and feet very well 09/10/21: Patient doing remarkably well Gaining function with hands and feet Loose BM's Blood sugars 272 Checked meds and labs 09/09/2021: Patient doing well No pain is reported Blood sugars reviewed Blood pressure reviewed Able to feed himself 09/08/2021: Pt is doing well Eating well Able to feed himself with his right hand Loose stools will be given Imodium 09/07/2021: Pt is doing well Blood sugar is 127 Bowels are loose Coccyx has a decubitus ulcer and we will monitor that closely 09/06/2021: Pt is doing a lot better Hemoglobin was 10.2 Has a decubitus ulcer on his coccyx Low bp so holding Norvasc Pilar lift is being used 09/05/2021: Patient doing really well Requiring Pilar lift though Lovenox started today Blood sugars are variable 09/04/2021: Patient doing very well Requiring Pilar lift since he cannot use the sit to stand at this current time Moving his arms and hands better Blood sugar is a little bit elevated Blood pressure better Lovenox will be started tomorrow 09/03/2021: Pt is doing well Took a shower but then he couldn't really get back in bed Had some emesis so we'll start Protonix 40 mg BID and Carafate Aguilar cath remains due to retention 09/02/2021: Pt settling in well Holding all insulin due to hypoglycemia Had emesis last night Fed himself a bit today Keeping aguilar in for retention Review of Systems General: Fatigue, Malaise Neurological: Weakness, Incoordination Objective Exam Vital Signs Vital Signs Date Time Temp Pulse Resp B/P (MAP) Pulse Ox O2 Delivery O2 Flow Rate FiO2 09/25/21 20:00 99 Room Air 09/25/21 20:00 37.3 76 18 137/67 (90) Capillary Refill : General Appearance: No Apparent Distress, WD/WN, Chronically ill, Obese HEENT: PERRL/EOMI, Normal ENT Inspection, Pharynx Normal Neck: Full Range of Motion, Normal Inspection, Non Tender, Supple, Carotid Bruit Respiratory: Chest Non Tender, Lungs Clear, Normal Breath Sounds, No Accessory Muscle Use, No Respiratory Distress Cardiovascular: Regular Rate, Rhythm, No Edema, No Gallop, No JVD, No Murmur, Normal Peripheral Pulses Gastrointestinal: Normal Bowel Sounds, No Organomegaly, No Pulsatile Mass, Non Tender, Soft Back: Normal Inspection, No CVA Tenderness, No Vertebral Tenderness, Decreased Range of Motion Extremity: Normal Capillary Refill, Normal Inspection, Normal Range of Motion, Non Tender, No Calf Tenderness, No Pedal Edema Neurologic/Psychiatric: Alert, Oriented x3, Normal Mood/Affect, Abnormal Gait, Motor Weakness Skin: Normal Color, Warm/Dry Lymphatic: No Adenopathy Results/Procedures Lab Patient resulted labs reviewed. FIM Transfers Therapy Code Descriptions/Definitions Functional [place] Measure: 0=Not Assessed/NA 4=Minimal Assistance 1=Total Assistance 5=Supervision or Setup 2=Maximal Assistance 6=Modified [place] 3=Moderate Assistance 7=Complete IndependenceSCALE: Activities may be completed with or without assistive devices. 1-Evnzugkonm-rqnxiaq completes the activity by him/herself with no assistance from a helper. 5-Set-up or Clean-up Assistance-helper sets up or cleans up; patient completes activity. [place] assists only prior to or following the activity. 4-Supervision or Touching Assistance-helper provides verbal cues and/or touching/steadying and/or contact guard assistance as patient completes activity. Assistance may be provided throughout the activity or intermittently. 3-Partial/Moderate Assistance-helper does LESS THAN HALF the effort. [place] l ifts, holds or supports trunk or limbs, but provides less than half the effort. 2-Substantial/Maximal Assistance-helper does MORE THAN HALF the effort. [place] lifts or holds trunk or limbs and provides more than half the effort. 7-Fqsymipbr-hyzcmq does ALL the effort. Patient does none of the effort to complete the activity. Or, the assistance of 2 or more helpers is required for t he patient to complete the activity. If activity was not attempted, code reason: 7-Patient Refused. 9-Not Applicable-not attempted and the patient did not perform the activity before the current illness, exacerbation or injury. 10-Not Attempted due to Environmental Limitations-(lack of equipment, weather restraints, etc.). 88-Not Attempted due to Medical Conditions or Safety Concerns. Roll Left to Right (QC): 6 Sit to Lying (QC): 6 Sit to Stand (QC): 4 Chair/Wic-lh-Gasti Xfer(QC): 4 Car Transfer (QC): 4 Gait Training Does the Patient Walk?: Yes Distance: 20'x2 Walk 10 feet (QC): 4 Walk 50 ft with 2 Turns(QC): 4 Walk 150 ft (QC): 88 Walking 10ft/uneven surface-QC: 88 Gait Persons Needed: 1 Gait Assistive Device: FWW Wheelchair Training Does the Pt Use a Wheelchair?: Yes Wheel 50 ft with 2 turns (QC): 4 Wheel 150 ft (QC): 3 Type of Wheelchair: Manual Stair Training Stair Training: Handrails/: 1 handrail #of Steps: 2 1 Step (curb) (QC): 3 4 Steps (QC): 88 12 Steps (QC): 88 Stairs: Pattern: Step to Balance Picking up an Object (QC): 88 ADL-Treatment Eating (QC): 5 Oral Hygiene (QC): 6 Shower/Bathe Self (QC): 3 Upper Body Dressing (QC): 3 Lower Body Dressing (QC): 1 On/Off Footwear (QC): 3 Toileting Hygiene (QC): 2 Toilet Transfer (QC): 3 Assessment/Plan Assessment and Plan Assess & Plan/Chief Complaint Assessment: 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 Diabetes inm-rq-lbuezzv Hypertension Hyperlipidemia Previous CVA with right-sided weakness Coccyx decubitus ulcers Pseudomonas UTI status post SIRS completed treatment with cefepime 09/20/2021 Plan: Aggressive therapy Pain control Monitor bowel function Insulin 09/02/2021: Supportive care Aggressive therapy Hold insulin 09/03/2021: Supportive care Cervical spine collar Aguilar catheter 09/04/2021: Supportive care Cervical spine collar Aguilar catheter Pilar lift We'll start Lovenox tomorrow 09/05/2021: Supportive care Lovenox Maintain Aguilar 09/06/2021: Maintain Aguilar Continues to be Pilar lift 09/07/2021: Coccyx decubitus ulcer management 09/08/2021: Imodium for loose stools Continue to progress 09/09/2021: Imodium for loose stools Supportive care 09/10/2021: Supportive care Dramatic improvement 09/11/2021: Supportive care We will attempt to DC Aguilar catheter this week 09/12/2021: Attempt to DC Aguilar catheter Supportive care 09/13/21: Voiding trial Monitor sugar 09/14/2021: Empiric antibiotics Urology consultation 09/15/2021: DC vancomycin Maintain cefepime 09/16/2021: Maintain cefepime Supportive care Hep-Lock IV fluid 09/17/2021: Maintain antibiotics 09/18/2021: Supportive care Antibiotics 09/19/2021: Supportive care Antibiotics 09/20/2021: Completed cefepime Appreciate urology 09/21/2021: Dramatic improvement Continue supportive care 09/22/2021: Supportive care Bowel routine 09/23/2021: Supportive care Bowel routine 09/24/2021: Aguilar discontinued Voiding very well 09/25/2021: Supportive care Continue voiding management Bowel regimen (1) Cervical spine syndrome (2) Myoclonus (3) Type 2 diabetes mellitus without complication (4) Primary hypertension (5) Mixed hyperlipidemia (6) History of CVA with residual deficit (7) Right sided weakness (8) Cervical cord myelomalacia (9) Spinal cord contusion (10) Fall Status: Acute SHAYNE JAMES DO Sep 25, 2021 07:30
[2021-09-25] MEDS: ENOXAPARIN 40 MG/0.4 ML (LOVENOX) SYR SC SCH (07:58)
[2021-09-25] MEDS: amLODIPine 5 MG (NORVASC) TAB PO SCH (07:58)
[2021-09-25] MEDS: meTOprolol TARTRATE 25 MG (LOPRESSOR) TABLET PO SCH ×2 (07:59→21:25)
[2021-09-25] MEDS: PANTOPRAZOLE 40 MG (PROTONIX) TAB PO SCH ×2 (07:59→21:26)
[2021-09-25] MEDS: TAMSULOSIN 0.4 MG (FLOMAX) CAP PO SCH ×2 (08:00→21:26)
[2021-09-25] MEDS: HYDROCORTISONE 1% CREAM 30 GM TUBE TOP SCH ×2 (08:03→21:26)
--- NOTE | 2021-09-25 10:36 | Physical Therapy Daily Note ---
PT Daily Note-Current Subjective Pt in bed and agrees to PT. Reports he is having a little pain today but does not rate. Mental Status Patient Orientation: Person, Place, Time, Normal For Age Transfers SCALE: Activities may be completed with or without assistive devices. 4-Rrzchdnmfo-clkwjvu completes the activity by him/herself with no assistance from a helper. 5-Set-up or Clean-up Assistance-helper sets up or cleans up; patient completes activity. [place] assists only prior to or following the activity. 4-Supervision or Touching Assistance-helper provides verbal cues and/or touching/steadying and/or contact guard assistance as patient completes activit y. Assistance may be provided throughout the activity or intermittently. 3-Partial/Moderate Assistance-helper does LESS THAN HALF the effort. [place] lifts, holds or supports trunk or limbs, but provides less than half the effort. 2-Substantial/Maximal Assistance-helper does MORE THAN HALF the effort. [place] lifts or holds trunk or limbs and provides more than half the effort. 0-Hirzecbum-nfbske does ALL the effort. Patient does none of the effort to complete the activity. Or, the assistance of 2 or more helpers is required for the patient to complete the activity. If activity was not attempted, code reason: 7-Patient Refused. 9-Not Applicable-not attempted and the patient did not perform the activity before the current illness, exacerbation or injury. 10-Not Attempted due to Environmental Limitations-(lack of equipment, weather restraints, etc.). 88-Not Attempted due to Medical Conditions or Safety Concerns. Roll Left & Right (QC): 4 Sit to Lying (QC): 3 Lying to Sitting/Side of Bed(Q: 4 Sit to Stand (QC): 4 Gait Training Does the Patient Walk?: Yes Distance: 60' x2 20' x 2 Walk 10 feet (QC): 4 Walk 50 ft with 2 Turns(QC): 4 Gait Persons Needed: 1 Gait Assistive Device: FWW Exercises Seated Therapy Exercises: Ankle pumps, Sit to stand, Long arc quads, Hip flexion, Hamstring Curls Seated Reps: 20 Standing: Hip Abduction, Mini squats Standing Reps: 10 Treatments Pt in bed upon arrival and agrees to PT. Pt then sits EOB and then amb 20' into [place] requires rest break. Pt then amb 60' to therapy gym. Pt performs seated exs and then after rest break pt amb to // bars and performs standing exs. After rest break pt amb 60' into [place]. After rest break pt amb to back to room and TFs back to bed. Requires modA for LEs. All needs met call light nearby PT departs. Assessment Current Status: Good Progress Pt requires cues for hand and foot placement during TFs. PT Short Term Goals Short Term Goals Time Frame: Sep 08, 2021 Roll Left & Right: 4 Sit to lyin Lying to sitting on side of be: 3 Sit to stand: 2 Chair/hju-ce-cllgb transfer: 2 PT Halfway Goals Halfway Goals PT Cryptologic Supervisor Goals Time Frame: Sep 22, 2021 Roll Left & Right (QC): 4 Sit to Lying (QC): 4 Lying-Sitting on Side/Bed(QC): 4 Sit to Stand (QC): 3 Chair/Ogi-yn-Cmwnh Xfer(QC): 3 Toilet Transfer (QC): 3 Car Transfer (QC): 3 Does the Patient Walk: No and Walking Goal NOT indicated Walk 10 feet (QC): 88 Walk 50ft with 2 Turns (QC): 88 Walk 150 ft (QC): 88 Walking 10ft on Uneven Surface: 88 1 Step (curb) (QC): 88 4 Steps (QC): 88 12 Steps (QC): 88 Picking up an Object (QC): 3 Does the Pt use WC or Scooter?: Yes Wheel 50 feet with 2 turns (QC: 3 Type: Manual Wheel 150 feet: 3 Type: Manual PT Plan Problem List Problem List: Activity Tolerance, Functional Strength Treatment/Plan Treatment Plan: Continue Plan of Care Treatment Plan: Bed Mobility, Education, Functional Activity Sara, Functional Strength, Group Therapy, Safety, Therapeutic Exercise, Transfers Treatment Duration: Sep 13, 2021 Frequency: At least 5 of 7 days/Wk (IRF) Estimated Hrs Per Day: 1.5 hours per day Patient and/or Family Agrees t: Yes Safety Risks/Education Patient Education: Gait Training, Transfer Techniques Teaching Recipient: Patient Teaching Methods: Discussion Response to Teaching: Return Demonstration Time/GCodes Time In: 830 Time Out: 900 Total Billed Treatment Time: 30 Total Billed Treatment 1, EX (20min), GT (10min) YEE HAIR PTA Sep 25, 2021 10:36
[2021-09-25 20:00] VITALS: BP 137/67
[2021-09-25] MEDS: ROSUVASTATIN 20 MG (CRESTOR) TABLET PO SCH (21:25)
[2021-09-26] MEDS: SUCRALFATE 1 GM (CARAFATE) TAB PO SCH ×4 (06:22→20:51)
[2021-09-26] MEDS: glyBURIDE 2.5 MG (MICRONASE) TAB PO SCH (06:22)
[2021-09-26] MEDS: BETHANECHOL 25 MG (URECHOLINE) TAB PO SCH ×4 (06:24→20:51)
--- NOTE | 2021-09-26 06:28 | PM&R Progress Note ---
Subjective HPI/CC On Admission Date Seen by Provider: Sep 26, 2021 Time Seen by Provider: 13:00 Subjective/Events-last exam 09/26/2021: Patient now walking really well Dramatic improvement Discharge plan for this week Blood sugars much improved Voiding very well 09/25/2021: Patient doing well Voiding well No new pain Start oral hypoglycemic tomorrow 09/24/2021: Patient doing much better Family training today Voiding very well Urecholine and Flomax working very well for him 09/23/2021: Pt improving Bowel training going well. 30 minutes after meals he gets on the commode Much improved status 09/22/2021: Pt improving immensely Easy transfer Bowel routine will be started today 09/21/2021: Pt doing dramatically better Weight-bearing and walking today with 2 assists Gave a morale boost for him now that he was able to walk 09/20/2021: Pt doing pretty well Walked with 3 assistants with a walker today Aguilar is back in Increasing Urecholine 50mg TID and Flomax BID Labs remain stable Last day of Cefepime today 09/19/2021: Patient doing well Wants to go home Aguilar catheter was replaced Supportive care will continue 09/18/2021: Patient doing well Maintained on cefepime Voiding trial per urology No pain is reported 09/17/2021: Patient doing very well Eating and drinking Maintain on cefepime Dr. Gaston will do voiding trial tomorrow 09/16/2021: Patient doing really well Hep-Lock IV fluid Pseudomonas sensitivity not back yet Family training will be soon 09/15/2021: Patient doing better Fever defervesced Aguilar back in White count improved Pseudomonas UTI maintain on cefepime and DC vancomycin Will have family come in for training 09/14/2021: Pt is not feeling well today Fever noted Had to put aguilar back in last night Suspect UTI Chest x-ray will be obtained also [place] [id number] Gaston regarding the consultation Cefepime and Vanc will be initiated to cover for pseudomonas and or enterococcus Zofran and IV fluid initiated 09/13/21: Pt is doing pretty well Will attempt to discontinue the catheter today. If he has retention it could be from the spinal cord injury and could very well require it to be indwelling. Labs reviewed Blood sugar is elevated from drinking orange juice all day 09/12/2021: Patient continues to improve No pain is reported Reviewed blood sugars Blood pressure stable 09/11/2021: Patient dramatically improved Loose stools still remain Patient denies pain Moving hands and feet very well 09/10/21: Patient doing remarkably well Gaining function with hands and feet Loose BM's Blood sugars 272 Checked meds and labs 09/09/2021: Patient doing well No pain is reported Blood sugars reviewed Blood pressure reviewed Able to feed himself 09/08/2021: Pt is doing well Eating well Able to feed himself with his right hand Loose stools will be given Imodium 09/07/2021: Pt is doing well Blood sugar is 127 Bowels are loose Coccyx has a decubitus ulcer and we will monitor that closely 09/06/2021: Pt is doing a lot better Hemoglobin was 10.2 Has a decubitus ulcer on his coccyx Low bp so holding Norvasc Pilar lift is being used 09/05/2021: Patient doing really well Requiring Pilar lift though Lovenox started today Blood sugars are variable 09/04/2021: Patient doing very well Requiring Pilar lift since he cannot use the sit to stand at this current time Moving his arms and hands better Blood sugar is a little bit elevated Blood pressure better Lovenox will be started tomorrow 09/03/2021: Pt is doing well Took a shower but then he couldn't really get back in bed Had some emesis so we'll start Protonix 40 mg BID and Carafate Aguilar cath remains due to retention 09/02/2021: Pt settling in well Holding all insulin due to hypoglycemia Had emesis last night Fed himself a bit today Keeping aguilar in for retention Review of Systems General: Fatigue, Malaise Neurological: Weakness, Incoordination Objective Exam Vital Signs Vital Signs Date Time Temp Pulse Resp B/P (MAP) Pulse Ox O2 Delivery O2 Flow Rate FiO2 09/26/21 20:55 100 Room Air 09/26/21 19:28 36.6 74 18 116/67 (83) Capillary Refill : General Appearance: No Apparent Distress, WD/WN, Chronically ill, Obese HEENT: PERRL/EOMI, Normal ENT Inspection, Pharynx Normal Neck: Full Range of Motion, Normal Inspection, Non Tender, Supple, Carotid Bruit Respiratory: Chest Non Tender, Lungs Clear, Normal Breath Sounds, No Accessory Muscle Use, No Respiratory Distress Cardiovascular: Regular Rate, Rhythm, No Edema, No Gallop, No JVD, No Murmur, Normal Peripheral Pulses Gastrointestinal: Normal Bowel Sounds, No Organomegaly, No Pulsatile Mass, Non Tender, Soft Back: Normal Inspection, No CVA Tenderness, No Vertebral Tenderness, Decreased Range of Motion Extremity: Normal Capillary Refill, Normal Inspection, Normal Range of Motion, Non Tender, No Calf Tenderness, No Pedal Edema Neurologic/Psychiatric: Alert, Oriented x3, Normal Mood/Affect, Abnormal Gait, Motor Weakness Skin: Normal Color, Warm/Dry Lymphatic: No Adenopathy Results/Procedures Lab Patient resulted labs reviewed. FIM Transfers Therapy Code Descriptions/Definitions Functional [place] Measure: 0=Not Assessed/NA 4=Minimal Assistance 1=Total Assistance 5=Supervision or Setup 2=Maximal Assistance 6=Modified [place] 3=Moderate Assistance 7=Complete IndependenceSCALE: Activities may be completed with or without assistive devices. 6-Paajpoyexb-zsuiyrx completes the activity by him/herself with no assistance from a helper. 5-Set-up or Clean-up Assistance-helper sets up or cleans up; patient completes activity. [place] assists only prior to or following the activity. 4-Supervision or Touching Assistance-helper provides verbal cues and/or touching/steadying and/or contact guard assistance as patient completes activity. Assistance may be provided throughout the activity or intermittently. 3-Partial/Moderate Assistance-helper does LESS THAN HALF the effort. [place] lifts, holds or supports trunk or limbs, but provides less than half the effort. 2-Substantial/Maximal Assistance-helper does MORE THAN HALF the effort. [place] lifts or holds trunk or limbs and provides more than half the effort. 5-Oycmtbcre-ffcqxo does ALL the effort. Patient does none of the effort to complete the activity. Or, the assistance of 2 or more helpers is required for the patient to complete the activity. If activity was not attempted, code reason: 7-Patient Refused. 9-Not Applicable-not attempted and the patient did not perform the activity before the current illness, exacerbation or injury. 10-Not Attempted due to Environmental Limitations-(lack of equipment, weather restraints, etc.). 88-Not Attempted due to Medical Conditions or Safety Concerns. Roll Left to Right (QC): 4 Sit to Lying (QC): 3 Sit to Stand (QC): 4 Chair/Fxk-lx-Hshue Xfer(QC): 4 Car Transfer (QC): 4 Gait Training Does the Patient Walk?: Yes Distance: 60' x2 20' x 2 Walk 10 feet (QC): 4 Walk 50 ft with 2 Turns(QC): 4 Walk 150 ft (QC): 88 Walking 10ft/uneven surface-QC: 88 Gait Persons Needed: 1 Gait Assistive Device: FWW Wheelchair Training Does the Pt Use a Wheelchair?: Yes Wheel 50 ft with 2 turns (QC): 4 Wheel 150 ft (QC): 3 Type of Wheelchair: Manual Stair Training Stair Training: Handrails/: 1 handrail #of Steps: 2 1 Step (curb) (QC): 3 4 Steps (QC): 88 12 Steps (QC): 88 Stairs: Pattern: Step to Balance Picking up an Object (QC): 88 ADL-Treatment Eating (QC): 5 Oral Hygiene (QC): 6 Shower/Bathe Self (QC): 3 Upper Body Dressing (QC): 3 Lower Body Dressing (QC): 1 On/Off Footwear (QC): 3 Toileting Hygiene (QC): 2 Toilet Transfer (QC): 3 Assessment/Plan Assessment and Plan Assess & Plan/Chief Complaint Assessment: 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 Diabetes eoa-yj-dwajrht Hypertension Hyperlipidemia Previous CVA with right-sided weakness Coccyx decubitus ulcers Pseudomonas UTI status post SIRS completed treatment with cefepime 09/20/2021 Plan: Aggressive therapy Pain control Monitor bowel function Insulin 09/02/2021: Supportive care Aggressive therapy Hold insulin 09/03/2021: Supportive care Cervical spine collar Aguilar catheter 09/04/2021: Supportive care Cervical spine collar Aguilar catheter Pilar lift We'll start Lovenox tomorrow 09/05/2021: Supportive care Lovenox Maintain Aguilar 09/06/2021: Maintain Aguilar Continues to be Pilar lift 09/07/2021: Coccyx decubitus ulcer management 09/08/2021: Imodium for loose stools Continue to progress 09/09/2021: Imodium for loose stools Supportive care 09/10/2021: Supportive care Dramatic improvement 09/11/2021: Supportive care We will attempt to DC Aguilar catheter this week 09/12/2021: Attempt to DC Aguilar catheter Supportive care 09/13/21: Voiding trial Monitor sugar 09/14/2021: Empiric antibiotics Urology consultation 09/15/2021: DC vancomycin Maintain cefepime 09/16/2021: Maintain cefepime Supportive care Hep-Lock IV fluid 09/17/2021: Maintain antibiotics 09/18/2021: Supportive care Antibiotics 09/19/2021: Supportive care Antibiotics 09/20/2021: Completed cefepime Sheree urology 09/21/2021: Dramatic improvement Continue supportive care 09/22/2021: Supportive care Bowel routine 09/23/2021: Supportive care Bowel routine 09/24/2021: Aguilar discontinued Voiding very well 09/25/2021: Supportive care Continue voiding management Bowel regimen 09/26/2021: Dramatic improvement now ambulating Voiding well Blood sugars better (1) Cervical spine syndrome (2) Myoclonus (3) Type 2 diabetes mellitus without complication (4) Primary hypertension (5) Mixed hyperlipidemia (6) History of CVA with residual deficit (7) Right sided weakness (8) Cervical cord myelomalacia (9) Spinal cord contusion (10) Fall Status: Acute ERIKASHAYNE DO Sep 26, 2021 06:28
[2021-09-26] MEDS: inSUlin ASPART (NovoLOG) 1 UNIT/0.01 ML (CHARGE PER UNIT) SC SCH ×4 (07:10→21:00)
[2021-09-26] MEDS: meTOprolol TARTRATE 25 MG (LOPRESSOR) TABLET PO SCH ×2 (07:28→20:51)
[2021-09-26] MEDS: ENOXAPARIN 40 MG/0.4 ML (LOVENOX) SYR SC SCH (07:29)
[2021-09-26] MEDS: PANTOPRAZOLE 40 MG (PROTONIX) TAB PO SCH ×2 (07:29→20:52)
[2021-09-26] MEDS: TAMSULOSIN 0.4 MG (FLOMAX) CAP PO SCH ×2 (07:29→20:51)
[2021-09-26] MEDS: amLODIPine 5 MG (NORVASC) TAB PO SCH ×2 (07:29→09:30)
[2021-09-26 07:30] VITALS: BP 97/55
[2021-09-26] MEDS: HYDROCORTISONE 1% CREAM 30 GM TUBE TOP SCH ×2 (07:30→21:01)
[2021-09-26 19:28] VITALS: BP 116/67
[2021-09-26] MEDS: ROSUVASTATIN 20 MG (CRESTOR) TABLET PO SCH (20:51)
[2021-09-27] MEDS: inSUlin ASPART (NovoLOG) 1 UNIT/0.01 ML (CHARGE PER UNIT) SC SCH ×4 (06:00→21:10)
[2021-09-27] MEDS: SUCRALFATE 1 GM (CARAFATE) TAB PO SCH ×4 (06:21→21:09)
[2021-09-27] MEDS: BETHANECHOL 25 MG (URECHOLINE) TAB PO SCH ×4 (06:22→21:10)
[2021-09-27] MEDS: glyBURIDE 2.5 MG (MICRONASE) TAB PO SCH (06:28)
[2021-09-27 06:49] LABS: BASOPHILS # (AUTO) 0.1 10^3/uL (0.0-0.1); BASOPHILS % (AUTO) 0 % (0-10); EOSINOPHILS # (AUTO) 0.2 10^3/uL (0.0-0.3); EOSINOPHILS % (AUTO) 2 % (0-10); HEMATOCRIT 33 % (40-54); HEMOGLOBIN 10.9 g/dL (13.3-17.7); LYMPHOCYTES # (AUTO) 2.2 10^3/uL (1.0-4.0); LYMPHOCYTES % (AUTO) 19 % (12-44); MEAN CORPUSCULAR HEMOGLOBIN 29 pg (25-34); MEAN CORPUSCULAR HGB CONC 34 g/dL (32-36); MEAN CORPUSCULAR VOLUME 87 fL (80-99); MONOCYTES # (AUTO) 0.5 10^3/uL (0.0-1.0); MONOCYTES % (AUTO) 5 % (0-12); NEUTROPHILS # (AUTO) 8.3 10^3/uL (1.8-7.8); NEUTROPHILS % (AUTO) 73 % (42-75); PLATELET COUNT 230 10^3/uL (130-400); WHITE BLOOD COUNT 11.3 10^3/uL (4.3-11.0)
--- NOTE | 2021-09-27 07:06 | PM&R Progress Note ---
Subjective HPI/CC On Admission Date Seen by Provider: Sep 27, 2021 Time Seen by Provider: 10:00 Subjective/Events-last exam 09/27/2021: Family training today Walking very well with walker Wheelchair will be available too Patient discharging tomorrow 09/26/2021: Patient now walking really well Dramatic improvement Discharge plan for this week Blood sugars much improved Voiding very well 09/25/2021: Patient doing well Voiding well No new pain Start oral hypoglycemic tomorrow 09/24/2021: Patient doing much better Family training today Voiding very well Urecholine and Flomax working very well for him 09/23/2021: Pt improving Bowel training going well. 30 minutes after meals he gets on the commode Much improved status 09/22/2021: Pt improving immensely Easy transfer Bowel routine will be started today 09/21/2021: Pt doing dramatically better Weight-bearing and walking today with 2 assists Gave a morale boost for him now that he was able to walk 09/20/2021: Pt doing pretty well Walked with 3 assistants with a walker today Aguilar is back in Increasing Urecholine 50mg TID and Flomax BID Labs remain stable Last day of Cefepime today 09/19/2021: Patient doing well Wants to go home Aguilar catheter was replaced Supportive care will continue 09/18/2021: Patient doing well Maintained on cefepime Voiding trial per urology No pain is reported 09/17/2021: Patient doing very well Eating and drinking Maintain on cefepime Dr. Gaston will do voiding trial tomorrow 09/16/2021: Patient doing really well Hep-Lock IV fluid Pseudomonas sensitivity not back yet Family training will be soon 09/15/2021: Patient doing better Fever defervesced Aguilar back in White count improved Pseudomonas UTI maintain on cefepime and DC vancomycin Will have family come in for training 09/14/2021: Pt is not feeling well today Fever noted Had to put aguilar back in last night Suspect UTI Chest x-ray will be obtained also [place] [address] Gaston regarding the consultation Cefepime and Vanc will be initiated to cover for pseudomonas and or enterococcus Zofran and IV fluid initiated 09/13/21: Pt is doing pretty well Will attempt to discontinue the catheter today. If he has retention it could be from the spinal cord injury and could very well require it to be indwelling. Labs reviewed Blood sugar is elevated from drinking orange juice all day 09/12/2021: Patient continues to improve No pain is reported Reviewed blood sugars Blood pressure stable 09/11/2021: Patient dramatically improved Loose stools still remain Patient denies pain Moving hands and feet very well 09/10/21: Patient doing remarkably well Gaining function with hands and feet Loose BM's Blood sugars 272 Checked meds and labs 09/09/2021: Patient doing well No pain is reported Blood sugars reviewed Blood pressure reviewed Able to feed himself 09/08/2021: Pt is doing well Eating well Able to feed himself with his right hand Loose stools will be given Imodium 09/07/2021: Pt is doing well Blood sugar is 127 Bowels are loose Coccyx has a decubitus ulcer and we will monitor that closely 09/06/2021: Pt is doing a lot better Hemoglobin was 10.2 Has a decubitus ulcer on his coccyx Low bp so holding Norvasc Pilar lift is being used 09/05/2021: Patient doing really well Requiring Pilar lift though Lovenox started today Blood sugars are variable 09/04/2021: Patient doing very well Requiring Pilar lift since he cannot use the sit to stand at this current time Moving his arms and hands better Blood sugar is a little bit elevated Blood pressure better Lovenox will be started tomorrow 09/03/2021: Pt is doing well Took a shower but then he couldn't really get back in bed Had some emesis so we'll start Protonix 40 mg BID and Carafate Aguilar cath remains due to retention 09/02/2021: Pt settling in well Holding all insulin due to hypoglycemia Had emesis last night Fed himself a bit today Keeping aguilar in for retention Review of Systems Neurological: Weakness, Incoordination Objective Exam Vital Signs Vital Signs Date Time Temp Pulse Resp B/P (MAP) Pulse Ox O2 Delivery O2 Flow Rate FiO2 09/27/21 21:15 Room Air 09/27/21 19:27 37.1 88 16 155/90 (111) 100 Capillary Refill : General Appearance: No Apparent Distress, WD/WN, Chronically ill, Obese HEENT: PERRL/EOMI, Normal ENT Inspection, Pharynx Normal Neck: Full Range of Motion, Normal Inspection, Non Tender, Supple, Carotid Bruit Respiratory: Chest Non Tender, Lungs Clear, Normal Breath Sounds, No Accessory Muscle Use, No Respiratory Distress Cardiovascular: Regular Rate, Rhythm, No Edema, No Gallop, No JVD, No Murmur, Normal Peripheral Pulses Gastrointestinal: Normal Bowel Sounds, No Organomegaly, No Pulsatile Mass, Non Tender, Soft Back: Normal Inspection, No CVA Tenderness, No Vertebral Tenderness, Decreased Range of Motion Extremity: Normal Capillary Refill, Normal Inspection, Normal Range of Motion, Non Tender, No Calf Tenderness, No Pedal Edema Neurologic/Psychiatric: Alert, Oriented x3, Normal Mood/Affect, Abnormal Gait, Motor Weakness Skin: Normal Color, Warm/Dry Lymphatic: No Adenopathy Results/Procedures Lab Laboratory Tests 09/27/21 06:36 Patient resulted labs reviewed. FIM Transfers Therapy Code Descriptions/Definitions Functional [place] Measure: 0=Not Assessed/NA 4=Minimal Assistance 1=Total Assistance 5=Supervision or Setup 2=Maximal Assistance 6=Modified [place] 3=Moderate Assistance 7=Complete IndependenceSCALE: Activities may be completed with or without assistive devices. 2-Gxovdllmxy-pammrcu completes the activity by him/herself with no assistance from a helper. 5-Set-up or Clean-up Assistance-helper sets up or cleans up; patient completes activity. [place] assists only prior to or following the activity. 4-Supervision or Touching Assistance-helper provides verbal cues and/or touching/steadying and/or contact guard assistance as patient completes activity. Assistance may be provided throughout the activity or intermittently. 3-Partial/Moderate Assistance-helper does LESS THAN HALF the effort. [place] lifts, holds or supports trunk or limbs, but provides less than half the effort. 2-Substantial/Maximal Assistance-helper does MORE THAN HALF the effort. [place] lifts or holds trunk or limbs and provides more than half the effort. 6-Fzmvapthc-qkpkwr does ALL the effort. Patient does none of the effort to complete the activity. Or, the assistance of 2 or more helpers is required for the patient to complete the activity. If activity was not attempted, code reason: 7-Patient Refused. 9-Not Applicable-not attempted and the patient did not perform the activity before the current illness, exacerbation or injury. 10-Not Attempted due to Environmental Limitations-(lack of equipment, weather restraints, etc.). 88-Not Attempted due to Medical Conditions or Safety Concerns. Roll Left to Right (QC): 4 Sit to Lying (QC): 3 Sit to Stand (QC): 4 Chair/Pgo-eg-Lfayr Xfer(QC): 4 Car Transfer (QC): 4 Gait Training Does the Patient Walk?: Yes Distance: 60' x2 20' x 2 Walk 10 feet (QC): 4 Walk 50 ft with 2 Turns(QC): 4 Walk 150 ft (QC): 88 Walking 10ft/uneven surface-QC: 88 Gait Persons Needed: 1 Gait Assistive Device: FWW Wheelchair Training Does the Pt Use a Wheelchair?: Yes Wheel 50 ft with 2 turns (QC): 4 Wheel 150 ft (QC): 3 Type of Wheelchair: Manual Stair Training Stair Training: Handrails/: 1 handrail #of Steps: 2 1 Step (curb) (QC): 3 4 Steps (QC): 88 12 Steps (QC): 88 Stairs: Pattern: Step to Balance Picking up an Object (QC): 88 ADL-Treatment Eating (QC): 5 Oral Hygiene (QC): 6 Shower/Bathe Self (QC): 3 Upper Body Dressing (QC): 3 Lower Body Dressing (QC): 1 On/Off Footwear (QC): 3 Toileting Hygiene (QC): 2 Toilet Transfer (QC): 3 Assessment/Plan Assessment and Plan Assess & Plan/Chief Complaint Assessment: 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 Diabetes oum-hi-ruvdcvl Hypertension Hyperlipidemia Previous CVA with right-sided weakness Coccyx decubitus ulcers Pseudomonas UTI status post SIRS completed treatment with cefepime 09/20/2021 Plan: Aggressive therapy Pain control Monitor bowel function Insulin 09/02/2021: Supportive care Aggressive therapy Hold insulin 09/03/2021: Supportive care Cervical spine collar Aguilar catheter 09/04/2021: Supportive care Cervical spine collar Aguilar catheter Pilar lift We'll start Lovenox tomorrow 09/05/2021: Supportive care Lovenox Maintain Aguilar 09/06/2021: Maintain Aguilar Continues to be Pilar lift 09/07/2021: Coccyx decubitus ulcer management 09/08/2021: Imodium for loose stools Continue to progress 09/09/2021: Imodium for loose stools Supportive care 09/10/2021: Supportive care Dramatic improvement 09/11/2021: Supportive care We will attempt to DC Aguilar catheter this week 09/12/2021: Attempt to DC Aguilar catheter Supportive care 09/13/21: Voiding trial Monitor sugar 09/14/2021: Empiric antibiotics Urology consultation 09/15/2021: DC vancomycin Maintain cefepime 09/16/2021: Maintain cefepime Supportive care Hep-Lock IV fluid 09/17/2021: Maintain antibiotics 09/18/2021: Supportive care Antibiotics 09/19/2021: Supportive care Antibiotics 09/20/2021: Completed cefepime Appreciate urology 09/21/2021: Dramatic improvement Continue supportive care 09/22/2021: Supportive care Bowel routine 09/23/2021: Supportive care Bowel routine 09/24/2021: Aguilar discontinued Voiding very well 09/25/2021: Supportive care Continue voiding management Bowel regimen 09/26/2021: Dramatic improvement now ambulating Voiding well Blood sugars better 09/27/2021: Discharge home tomorrow (1) Cervical spine syndrome (2) Myoclonus (3) Type 2 diabetes mellitus without complication (4) Primary hypertension (5) Mixed hyperlipidemia (6) History of CVA with residual deficit (7) Right sided weakness (8) Cervical cord myelomalacia (9) Spinal cord contusion (10) Fall Status: Acute SHAYNE JAMES DO Sep 27, 2021 07:06
[2021-09-27 07:16] LABS: BILIRUBIN,TOTAL 0.2 MG/DL (0.1-1.0); CALCIUM 8.9 MG/DL (8.5-10.1); CREATININE SERUM 1.16 MG/DL (0.60-1.30); POTASSIUM 3.9 MMOL/L (3.6-5.0); TOTAL PROTEIN 6.5 GM/DL (6.4-8.2)
[2021-09-27] MEDS: PANTOPRAZOLE 40 MG (PROTONIX) TAB PO SCH ×2 (08:33→21:10)
[2021-09-27] MEDS: ENOXAPARIN 40 MG/0.4 ML (LOVENOX) SYR SC SCH (08:33)
[2021-09-27] MEDS: amLODIPine 5 MG (NORVASC) TAB PO SCH (08:34)
[2021-09-27] MEDS: meTOprolol TARTRATE 25 MG (LOPRESSOR) TABLET PO SCH ×2 (08:34→21:09)
--- NOTE | 2021-09-27 08:35 | Physical Therapy Daily Note ---
PT Daily Note-Current Subjective Pt. in bed, asleep, lights off, a little difficult to awaken. Agreeable to Rx . Pain Location: No Pain Reported Mental Status Patient Orientation: Normal For Age Attachments: Other-See Comments (cervical brace) Transfers SCALE: Activities may be completed with or without assistive devices. 3-Sryxljktzy-qqyqgpi completes the activity by him/herself with no assistance from a helper. 5-Set-up or Clean-up Assistance-helper sets up or cleans up; patient completes activity. [place] assists only prior to or following the activity. 4-Supervision or Touching Assistance-helper provides verbal cues and/or touching/steadying and/or contact guard assistance as patient completes activity. Assistance may be provided throughout the activity or intermittently. 3-Partial/Moderate Assistance-helper does LESS THAN HALF the effort. [place] lifts, holds or supports trunk or limbs, but provides less than half the effort. 2-Substantial/Maximal Assistance-helper does MORE THAN HALF the effort. [place] lifts or holds trunk or limbs and provides more than half the effort. 4-Tezufytaf-gstqrx does ALL the effort. Patient does none of the effort to complete the activity. Or, the assistance of 2 or more helpers is required for the patient to complete the activity. If activity was not attempted, code reason: 7-Patient Refused. 9-Not Applicable-not attempted and the patient did not perform the activity before the current illness, exacerbation or injury. 10-Not Attempted due to Environmental Limitations-(lack of equipment, weather restraints, etc.). 88-Not Attempted due to Medical Conditions or Safety Concerns. Roll Left & Right (QC): 6 Sit to Lying (QC): 6 Lying to Sitting/Side of Bed(Q: 6 Sit to Stand (QC): 4 Chair/Ktc-mz-Ymsux Xfer(QC): 4 pt. needs time but is indep in out bed Gait Training Does the Patient Walk?: Yes Walk 10 feet (QC): 4 Walk 50 ft with 2 Turns(QC): 4 Gait Persons Needed: 1 Gait Assistive Device: FWW slow, with tone contd but better control and safety. MAINOR improved and safer Exercises Supine Ex: Bridging, Ankle pumps (HC stretches 4 x 20sec), Rolling, Heel Slides, Short Arc Quads, Scooting, Straight leg raise, Hip abd/add Supine Reps: 15 Treatments bed mob, supine therex LEs, TRFs, gait 50ft x 2 FWW, up in recliner with call diaz, explained to pt. his family will be here at 1000 for training and DC is expected for tomorrow. Some real concern for pts entry into his home as he failed stair climbing Fri, will attempt again i other fashions today. Doubtful pts can bump w/c up down, ramp was requested but has not been installed as far as this BUSINESS LOAN PROCESSOR knows Assessment Current Status: Good Progress PT Short Term Goals Short Term Goals Time Frame: Sep 08, 2021 Roll Left & Right: 4 Sit to lyin Lying to sitting on side of be: 3 Sit to stand: 2 Chair/fgt-nb-eppfg transfer: 2 PT Gold And Silver Assayer Goals Gold And Silver Assayer Goals PT Gold And Silver Assayer Goals Time Frame: Sep 22, 2021 Roll Left & Right (QC): 4 Sit to Lying (QC): 4 Lying-Sitting on Side/Bed(QC): 4 Sit to Stand (QC): 3 Chair/Uoe-oe-Rsixb Xfer(QC): 3 Toilet Transfer (QC): 3 Car Transfer (QC): 3 Does the Patient Walk: No and Walking Goal NOT indicated Walk 10 feet (QC): 88 Walk 50ft with 2 Turns (QC): 88 Walk 150 ft (QC): 88 Walking 10ft on Uneven Surface: 88 1 Step (curb) (QC): 88 4 Steps (QC): 88 12 Steps (QC): 88 Picking up an Object (QC): 3 Does the Pt use WC or Scooter?: Yes Wheel 50 feet with 2 turns (QC: 3 Type: Manual Wheel 150 feet: 3 Type: Manual PT Plan Treatment/Plan Treatment Plan: Continue Plan of Care Treatment Plan: Bed Mobility, Education, Functional Activity Sara, Functional Strength, Group Therapy, Safety, Therapeutic Exercise, Transfers Treatment Duration: Sep 13, 2021 Frequency: At least 5 of 7 days/Wk (IRF) Estimated Hrs Per Day: 1.5 hours per day Patient and/or Family Agrees t: Yes Safety Risks/Education Patient Education: Gait Training, Transfer Techniques, Correct Positioning, Safety Issues Teaching Recipient: Patient Teaching Methods: Demonstration, Discussion Response to Teaching: Verbalize Understanding, Return Demonstration, Reinforcement Needed Time/GCodes Time In: 800 Time Out: 830 Total Billed Treatment Time: 30 Total Billed Treatment 1,GT15m,EX15m LILIAN HARRISON BUSINESS LOAN PROCESSOR Sep 27, 2021 08:35
[2021-09-27] MEDS: HYDROCORTISONE 1% CREAM 30 GM TUBE TOP SCH ×2 (08:37→21:11)
--- NOTE | 2021-09-27 09:51 | Occupational Ther Daily Note ---
OT Current Status-Daily Note Subjective Pt denies pain, agreeable to treatment. Appearance Pt returned to sitting in recliner, all needs within reach. ADL-Treatment Therapy Code Descriptions/Definitions Functional [place] Measure: 0=Not Assessed/NA 4=Minimal Assistance 1=Total Assistance 5=Supervision or Setup 2=Maximal Assistance 6=Modified [place] 3=Moderate Assistance 7=Complete IndependenceSCALE: Activities may be completed with or without assistive devices. 1-Hhjoxpdtjh-hgvpjdq completes the activity by him/herself with no assistance from a helper. 5-Set-up or Clean-up Assistance-helper sets up or cleans up; patient completes activity. [place] assists only prior to or following the activity. 4-Supervision or Touching Assistance-helper provides verbal cues and/or touching/steadying and/or contact guard assistance as patient completes activity. Assistance may be provided throughout the activity or intermittently. 3-Partial/Moderate Assistance-helper does LESS THAN HALF the effort. [place] lifts, holds or supports trunk or limbs, but provides less than half the effort. 2-Substantial/Maximal Assistance-helper does MORE THAN HALF the effort. [place] lifts or holds trunk or limbs and provides more than half the effort. 9-Gfmthirhg-atgshz does ALL the effort. Patient does none of the effort to complete the activity. Or, the assistance of 2 or more helpers is required for the patient to complete the activity. If activity was not attempted, code reason: 7-Patient Refused. 9-Not Applicable-not attempted and the patient did not perform the activity before the current illness, exacerbation or injury. 10-Not Attempted due to Environmental Limitations-(lack of equipment, weather restraints, etc.). 88-Not Attempted due to Medical Conditions or Safety Concerns. Eating (QC): 5 (with bilateral tasks only such as cutting) Oral Hygiene (QC): 6 Shower/Bathe Self (QC): 3 (min) Upper Body Dressing (QC): 3 (min) Lower Body Dressing (QC): 3 On/Off Footwear: 3 Toileting Hygiene (QC): 3 Toilet Transfer (QC): 4 Sponge bath performed seated at sink. Pt able to wash upper body without assist. Intermittent min a is needed to maintain figure 4 position as pt washed his feet. Mod-max a to wash buttocks in standing, more assist to wash L side. Clothing donned seated in w/c. Good recall on compensatory strategies learned in past sessions. Min a to don shirt as pt required assist to bring shirt overhead due to tight fit over neck brace. Reminders/education on wearing loose/large fitted shirts post d/c to make task easier. Unsure if understanding occurred. Pt able to thread feet into brief/shorts with use of cross over method and min a. Clothing management performed x3 with goal to promote increased independence in task. Initially, pt required mod a but improves to min a to pull up fully in the back. Pt has difficulty manipulating clothing with L hand, thus most of task is performed with R. Steadying assist needed during task. Tactile and visual cues on alternating hand and on better placement for improved performance. Min-mod a needed to initiate socks over toes, pt able to manage over rest of foot with extra time. Grooming tasks performed at w/c level, no assist required. Other Treatment 2nd session ([id number]) Co-treat with PT. Family training scheduled at that time. Prior to family arrival, Pt practiced stairs. Activity modified with chair method where legs were adjusted to step height. Post instruction/demonstration, pt was able to perform with assist x2. Pt sat on adjusted shower chair, independently lifted legs up onto step and then use railing to stand.Min verbal cues to ensure feet were positioned fully on step. Chair was moved to next step by 2nd person. Pt would then sit down and complete all steps again until reaching the top. Once family arrived, therapists demonstrated with patient. Family report that this is attainable. OT educated and discussed assist needed for bathing, toileting, and dressing. Family had zero questions and appear apprehensive about taking patient home and performing adls, specifically toileting. Education OT Patient Education: Correct positioning, Energy conservation, Modified ADL techniques, Progress toward Goal/Update tx plan, Purpose of tx/functional activities, Safety issues, Transfer techniques Teaching Recipient: Patient, Family Teaching Methods: Demonstration, Discussion Response to Teaching: Verbalize Understanding, Return Demonstration, Reinforcement Needed OT Short Term Goals Short Term Goals Time Frame: Sep 22, 2021 Toileting hygiene: 2 Shower/bathe self: 2 Upper body dressin Lower body dressin Putting on/taking off footwear: 3 OT Prison Goals [place] Goals Time Frame: Oct 01, 2021 Eating (QC): 5 Oral Hygiene (QC): 6 Toileting Hygiene (QC): 4 Shower/Bathe Self (QC): 4 Upper Body Dressing (QC): 5 Lower Body Dressing (QC): 4 On/Off Footwear (QC): 4 Additional Goals: 1-Demonstrate ADL Tasks, 2-Verbalize Understanding, 3- ImproveStrength/Sara 1=Demonstrate adherence to instructed precautions during ADL tasks. 2=Patient will verbalize/demonstrate understanding of assistive devices/modifications for ADL. 3=Patient will improve strength/tolerance for activity to enable patient to perform ADL's. OT Education/Plan Problem List/Assessment Assessment: Decreased Activ Tolerance, Decreased Safety Aware, Decreased UE Strength, Impaired Coordination, Impaired Funct Balance, Impaired I ADL's, Impaired Self-Care Skills, Restricted Funct UE ROM Discharge Recommendations Plan/Recommendations: Continue POC Therapy Discharge Recommendati: Scheduled Assistance, Bath Aide, Homemaker Support, Post Acute OT Treatment Plan/Plan of Care Treatment,Training & Education: Yes Patient would benefit from OT for education, treatment and training to promote independence in ADL's, mobility, safety and/or upper extremity function for ADL's. Plan of Care: ADL Retraining, Functional Mobility, Group Exercise/Act as Ind, UE Funct Exercise/Act, UE Neuromus Re-Ed/Coord Treatment Duration: Oct 01, 2021 Frequency: At least 5 of 7 days/Wk (IRF) Estimated Hrs Per Day: 1.5 hours per day Agreement: Yes Rehab Potential: Fair Time/GCodes Start Time: 08:50 (1000) Stop Time: 09:40 (1100) Total Time Billed (hr/min): 110 Billed Treatment Time 1 visit ADL x3 2nd visit FA x4 Nisreen Lowe OT Sep 27, 2021 09:50
--- NOTE | 2021-09-27 11:18 | Physical Therapy Daily Note ---
PT Daily Note-Current Subjective Pt. seeming discouraged or depressed today agrees to Rx with encouragement. Again pts family and an instructor knitting to be here. They are late but do come . Much discussion with /instructor knitting (who will also be a certified caregiver) requests a "note" for work so that she can be off a couple weeks to be with her . SW was called in to discuss this . Upon entering the room pt. did not have his cervical collar on, it was explained to pt. by PT OT that this must be in place until Dr Preciado. PT OT co Rx this session for trial of stairs with offset shower chair which required 2 skilled clinicians for set up, troubleshooting and safety, as well as caregiver training Pain Location: No Pain Reported Mental Status Patient Orientation: Normal For Age Attachments: Other-See Comments (cerv collar) pt. seems despondent, poor communication noted between patient and , did not greet one another, no physical contact , no eye contact etc, Transfers SCALE: Activities may be completed with or without assistive devices. 6-Gdmzuoyavw-zpwfuel completes the activity by him/herself with no assistance from a helper. 5-Set-up or Clean-up Assistance-helper sets up or cleans up; patient completes activity. [place] assists only prior to or following the activity. 4-Supervision or Touching Assistance-helper provides verbal cues and/or touching/steadying and/or contact guard assistance as patient completes activity. Assistance may be provided throughout the activity or intermittently. 3-Partial/Moderate Assistance-helper does LESS THAN HALF the effort. [place] lifts, holds or supports trunk or limbs, but provides less than half the effort. 2-Substantial/Maximal Assistance-helper does MORE THAN HALF the effort. [place] lifts or holds trunk or limbs and provides more than half the effort. 9-Hwtjbsdhe-rrcnvi does ALL the effort. Patient does none of the effort to complete the activity. Or, the assistance of 2 or more helpers is required for the patient to complete the activity. If activity was not attempted, code reason: 7-Patient Refused. 9-Not Applicable-not attempted and the patient did not perform the activity before the current illness, exacerbation or injury. 10-Not Attempted due to Environmental Limitations-(lack of equipment, weather restraints, etc.). 88-Not Attempted due to Medical Conditions or Safety Concerns. Roll Left & Right (QC): 6 Sit to Lying (QC): 6 Lying to Sitting/Side of Bed(Q: 6 Sit to Stand (QC): 4 Chair/Gbb-bz-Vwpmd Xfer(QC): 4 Toilet Transfer (QC): 4 Car Transfer (QC): 4 Gait Training Does the Patient Walk?: Yes Walk 10 feet (QC): 4 Walk 50 ft with 2 Turns(QC): 4 Walk 150 ft (QC): 4 Walking 10ft/uneven surface-QC: 4 Gait Persons Needed: 1 Gait Assistive Device: FWW Wheelchair Training Does the Pt Use a Wheelchair?: Yes Wheel 50 ft with 2 turns (QC): 4 Wheel 150 ft (QC): 4 Type of Wheelchair: Manual Stair Training Stair Training: Handrails/: 1 handrail #of Steps: 4 1 Step (curb) (QC): 2 4 Steps (QC): 2 12 Steps (QC): 88 offset shower chair was used with pt facing step rail sitting on chair , standing on coordinated step, helper needed for min assist balance and max assist to move chair to next step, all this was demonstrated to pts family with them looking on stating they understand how it can be adjusted to fit their exact steps Balance Picking up an Object (QC): 4 (using well driller) Assessment Current Status: Good Progress this LUSTERER hopeful that PT OT and nursing can be on board for home care PT Short Term Goals Short Term Goals Time Frame: Sep 08, 2021 Roll Left & Right: 4 Sit to lyin Lying to sitting on side of be: 3 Sit to stand: 2 Chair/sbi-jz-fmtmp transfer: 2 PT Mohs Surgeon Goals Chcf Goals PT Chcf Goals Time Frame: Sep 22, 2021 Roll Left & Right (QC): 4 Sit to Lying (QC): 4 Lying-Sitting on Side/Bed(QC): 4 Sit to Stand (QC): 3 Chair/Uqj-dj-Zwoqh Xfer(QC): 3 Toilet Transfer (QC): 3 Car Transfer (QC): 3 Does the Patient Walk: No and Walking Goal NOT indicated Walk 10 feet (QC): 88 Walk 50ft with 2 Turns (QC): 88 Walk 150 ft (QC): 88 Walking 10ft on Uneven Surface: 88 1 Step (curb) (QC): 88 4 Steps (QC): 88 12 Steps (QC): 88 Picking up an Object (QC): 3 Does the Pt use WC or Scooter?: Yes Wheel 50 feet with 2 turns (QC: 3 Type: Manual Wheel 150 feet: 3 Type: Manual PT Plan Treatment/Plan Treatment Plan: Continue Plan of Care Treatment Plan: Bed Mobility, Education, Functional Activity Sara, Functional Strength, Group Therapy, Safety, Therapeutic Exercise, Transfers Treatment Duration: Sep 13, 2021 Frequency: At least 5 of 7 days/Wk (IRF) Estimated Hrs Per Day: 1.5 hours per day Patient and/or Family Agrees t: Yes Safety Risks/Education Patient Education: Gait Training, Transfer Techniques, Steps, Correct Positioning, Reviewed Don/Doff Brace, Instructions to Caregiver, Safety Issues Teaching Recipient: Patient, Primary Caregiver, Family Teaching Methods: Demonstration, Discussion Response to Teaching: Verbalize Understanding, Return Demonstration, Reinforcement Needed Time/GCodes Time In: 1000 Time Out: 1100 Total Billed Treatment Time: 60 Total Billed Treatment 1,GT15m, FA45m (co Rx 60 m) LILIAN HARRISON LUSTERER Sep 27, 2021 11:18
[2021-09-27] MEDS ORDERED: TAMSULOSIN 0.4 MG (FLOMAX) CAP PO SCH (18:00)
[2021-09-27 19:27] VITALS: BP 155/90
[2021-09-27] MEDS: ROSUVASTATIN 20 MG (CRESTOR) TABLET PO SCH (21:09)
[2021-09-28] MEDS: inSUlin ASPART (NovoLOG) 1 UNIT/0.01 ML (CHARGE PER UNIT) SC SCH ×2 (05:30→11:03)
[2021-09-28] MEDS ORDERED: HYDR453. TOP (06:37)
[2021-09-28] MEDS ORDERED: ROSU20TA32 PO (06:37)
[2021-09-28] MEDS ORDERED: SUCR1TAB PO (06:37)
[2021-09-28] MEDS ORDERED: PANT40TA52 PO (06:37)
[2021-09-28] MEDS ORDERED: AMLO-250 PO (06:37)
[2021-09-28] MEDS ORDERED: METO-333 PO (06:37)
[2021-09-28] MEDS ORDERED: GLBR2.5T PO (06:37)
[2021-09-28] MEDS ORDERED: TMSL.4C PO (06:37)
--- NOTE | 2021-09-28 06:38 | D/C HH Face to Face Order ---
D/C Face to Face Orders Reconcile Patient Problems Problems Reviewed?: Yes Instructions for Patient [facility], Patient Instructions/FollowUp: PCP [facility] 1 week Physician to follow Patient: [facility] Discharge Diet for Home: ADA Diet Patient Problems: Cervical spinal cord contusion Patient Data-Allergies,Ht & Wt Patient Allergies: Coded Allergies: No Known Drug Allergies (Unverified , 07/09/21) Home Health Need/Face to Face Date of Face to Face: Sep 28, 2021 Clinical Findings: Instability, Muscle weakness, Unsteady gait I have seen Pt gtrx-gr-ugpu: Yes Discharged To: Home Diagnosis/Conditions: Debility Patient is Homebound due to: Bert fall risk due to instabilty, Muscle weakness Homebound Status Due to the above stated illness, injury or surgical procedure (medical condition or diagnosis) and associated clinical findings, the patient is homebound because of his/her inability to leave home except with aid of a supportive device and/or person AND leaving the home requires a considerable and taxing effort or is medically contraindicated. Pt req the following assistanc: Walker, Wheelchair Home Health Nursing Orders Home Health Services Order: Nursing Services, Electron Gun Assembler-Evaluate & Treat, Physical Therapy-Evaluate & Treat Certify Stmt I certify that this patient is under my care and that I, a nurse practitioner or a physician; a human resources executive assistant working with me, had a face to face encounter that - meets the physician face to face encounter requirements with this patient as dated. SHAYNE JAMES DO Sep 28, 2021 06:38
--- NOTE | 2021-09-28 06:38 | Discharge Summary ---
Diagnosis/Chief Complaint Date of Admission Sep 01, 2021 at 12:56 Date of Discharge Discharge Date: Sep 28, 2021 Discharge Summary Discharge Physical Examination Allergies: Coded Allergies: No Known Drug Allergies (Unverified , 07/09/21) Vitals & I&Os Vital Signs Date Time Temp Pulse Resp B/P (MAP) Pulse Ox O2 Delivery O2 Flow Rate FiO2 09/28/21 09:00 100 Room Air 09/28/21 07:25 36.7 73 16 117/71 (86) Hospital Course Labs (last 24 hrs) Laboratory Tests 09/01/21 12:56: Lab Scanned Report Referred Lab Report 09/01/21 17:20: Glucometer 199H 09/01/21 20:47: Glucometer 144H 09/02/21 05:27: Glucometer 59*L 09/02/21 05:30: White Blood Count 9.4, Red Blood Count 3.55L, Hemoglobin 10.3L, Hematocrit 31L, Mean Corpuscular Volume 86, Mean Corpuscular Hemoglobin 29, Mean Corpuscular Hemoglobin Concent 34, Red Cell Distribution Width 11.6, Platelet Count 174, Mean Platelet Volume 9.4, Immature Granulocyte % (Auto) 1, Neutrophils (%) (Auto) 72, Lymphocytes (%) (Auto) 14, Monocytes (%) (Auto) 7, Eosinophils (%) (Auto) 6, Basophils (%) (Auto) 0, Neutrophils # (Auto) 6.8, Lymphocytes # (Auto) 1.3, Monocytes # (Auto) 0.7, Eosinophils # (Auto) 0.5H, Basophils # (Auto) 0.0, Immature Granulocyte # (Auto) 0.1, Sodium Level 137, Potassium Level 3.9, Chloride Level 106, Carbon Dioxide Level 23, Anion Gap 8, Blood Urea Nitrogen 17, Creatinine 0.82, Estimat Glomerular Filtration Rate 112, BUN/Creatinine Ratio 21, Glucose Level 60*L, Calcium Level 8.2L, Corrected Calcium 9.5, Total Bilirubin 0.5, Aspartate Amino Transf (AST/SGOT) 16, Alanine Aminotransferase (ALT/SGPT) 10, Alkaline Phosphatase 68, Total Protein 5.3L, Albumin 2.4L 09/02/21 06:10: Glucometer 104 09/02/21 10:47: Glucometer 101 09/02/21 16:31: Glucometer 148H 09/02/21 20:20: Glucometer 213H 09/03/21 05:36: Glucometer 152H 09/03/21 11:43: Glucometer 153H 09/03/21 15:30: Glucometer 183H 09/03/21 20:17: Glucometer 185H 09/04/21 05:35: Glucometer 135H 09/04/21 10:56: Glucometer 170H 09/04/21 16:34: Glucometer 225H 09/04/21 20:28: Glucometer 278H 09/05/21 05:35: Glucometer 145H 09/05/21 10:53: Glucometer 202H 09/05/21 15:01: Glucometer 252H 09/05/21 20:09: Glucometer 197H 09/06/21 05:01: Glucometer 215H 09/06/21 05:16: White Blood Count 8.2, Red Blood Count 3.45L, Hemoglobin 10.2L, Hematocrit 30L, Mean Corpuscular Volume 87, Mean Corpuscular Hemoglobin 30, Mean Corpuscular Hemoglobin Concent 34, Red Cell Distribution Width 11.6, Platelet Count 208, Mean Platelet Volume 9.1, Immature Granulocyte % (Auto) 1, Neutrophils (%) (Auto) 60, Lymphocytes (%) (Auto) 26, Monocytes (%) (Auto) 7, Eosinophils (%) (Auto) 5, Basophils (%) (Auto) 1, Neutrophils # (Auto) 5.0, Lymphocytes # (Auto) 2.1, Monocytes # (Auto) 0.6, Eosinophils # (Auto) 0.4H, Basophils # (Auto) 0.0, Immature Granulocyte # (Auto) 0.1, Sodium Level 133L, Potassium Level 4.0, Chloride Level 100, Carbon Dioxide Level 25, Anion Gap 8, Blood Urea Nitrogen 19H, Creatinine 1.12, Estimat Glomerular Filtration Rate 84, BUN/Creatinine Ratio 17, Glucose Level 213H, Calcium Level 8.5, Corrected Calcium 9.6, Total Bilirubin 0.3, Aspartate Amino Transf (AST/SGOT) 16, Alanine Aminotransferase (ALT/SGPT) 12, Alkaline Phosphatase 92, Total Protein 6.1L, Albumin 2.6L 09/06/21 11:03: Glucometer 249H 09/06/21 14:51: Glucometer 175H 09/06/21 20:08: Glucometer 199H 09/07/21 05:29: Glucometer 127H 09/07/21 11:05: Glucometer 214H 09/07/21 16:30: Glucometer 197H 09/07/21 20:32: Glucometer 202H 09/08/21 06:17: Glucometer 161H 09/08/21 10:45: Glucometer 163H 09/08/21 15:06: Glucometer 194H 09/08/21 19:59: Glucometer 198H 09/09/21 06:05: Glucometer 131H 09/09/21 10:57: Glucometer 194H 09/09/21 15:29: Glucometer 160H 09/09/21 20:13: Glucometer 130H 09/10/21 05:34: Glucometer 125H 09/10/21 11:09: Glucometer 272H 09/10/21 15:38: Glucometer 147H 09/10/21 20:42: Glucometer 200H 09/11/21 05:50: Glucometer 96 09/11/21 10:49: Glucometer 187H 09/11/21 15:31: Glucometer 170H 09/11/21 20:47: Glucometer 181H 09/12/21 05:07: Glucometer 119H 09/12/21 10:47: Glucometer 176H 09/12/21 16:26: Glucometer 317H 09/12/21 20:22: Glucometer 142H 09/13/21 05:56: White Blood Count 9.1, Red Blood Count 3.69L, Hemoglobin 10.6L, Hematocrit 32L, Mean Corpuscular Volume 86, Mean Corpuscular Hemoglobin 29, Mean Corpuscular Hemoglobin Concent 33, Red Cell Distribution Width 11.4, Platelet Count 222, Mean Platelet Volume 9.7, Immature Granulocyte % (Auto) 0, Neutrophils (%) (Auto) 59, Lymphocytes (%) (Auto) 28, Monocytes (%) (Auto) 6, Eosinophils (%) (Auto) 6, Basophils (%) (Auto) 0, Neutrophils # (Auto) 5.4, Lymphocytes # (Auto) 2.6, Monocytes # (Auto) 0.5, Eosinophils # (Auto) 0.6H, Basophils # (Auto) 0.0, Immature Granulocyte # (Auto) 0.0, Sodium Level 137, Potassium Level 4.0, Chloride Level 105, Carbon Dioxide Level 23, Anion Gap 9, Blood Urea Nitrogen 29H, Creatinine 1.11, Estimat Glomerular Filtration Rate 84, BUN/Creatinine Ratio 26, Glucose Level 120H, Calcium Level 9.0, Corrected Calcium 9.9, Total Bilirubin 0.2, Aspartate Amino Transf (AST/SGOT) 25, Alanine Aminotransferase (ALT/SGPT) 33, Alkaline Phosphatase 84, Total Protein 6.6, Albumin 2.9L 09/13/21 06:14: Glucometer 113H 09/13/21 11:10: Glucometer 289H 09/13/21 17:18: Glucometer 157H 09/13/21 20:49: Glucometer 229H 09/14/21 05:30: Glucometer 196H 09/14/21 08:56: Glucometer 177H 09/14/21 09:15: White Blood Count 17.1H, Red Blood Count 3.81L, Hemoglobin 11.3L, Hematocrit 33L , Mean Corpuscular Volume 85, Mean Corpuscular Hemoglobin 30, Mean Corpuscular Hemoglobin Concent 35, Red Cell Distribution Width 11.4, Platelet Count 175, Mean Platelet Volume 9.3, Immature Granulocyte % (Auto) 1, Neutrophils (%) (Auto) 88H, Lymphocytes (%) (Auto) 4L, Monocytes (%) (Auto) 5, Eosinophils (%) (Auto) 2, Basophils (%) (Auto) 0, Neutrophils # (Auto) 15.1H, Lymphocytes # (Auto) 0.8L, Monocytes # (Auto) 0.9, Eosinophils # (Auto) 0.3, Basophils # (Auto) 0.1, Immature Granulocyte # (Auto) 0.1, Neutrophils % (Manual) 83, Ly mphocytes % (Manual) 5, Monocytes % (Manual) 3, Eosinophils % (Manual) 5, Band Neutrophils 1, Atypical Lymphocytes 2, Reactive Lymphocytes 1, Clumped Platelets SLIGHT, Polychromasia MODERATE, Basophilic Stippling SLIGHT, Microcytosis SLIGHT, Sodium Level 135, Potassium Level 4.5, Chloride Level 103, Carbon Dioxide Level 22, Anion Gap 10, Blood Urea Nitrogen 33H, Creatinine 1.15, Estimat Glomerular Filtration Rate 81, BUN/Creatinine Ratio 29, Glucose Level 183H, Lactic Acid Level 0.68, Calcium Level 8.7, Corrected Calcium 9.4, Total Bilirubin 0.3, Aspartate Amino Transf (AST/SGOT) 22, Alanine Aminotransferase (ALT/SGPT) 32, Alkaline Phosphatase 89, Total Protein 6.8, Albumin 3.1L, Proca lcitonin 0.13H 09/14/21 09:20: Urine Color YELLOW, Urine Clarity SL CLOUDY, Urine pH 6.5, Urine Specific [place] 1.020, Urine Protein 2+H, Urine Glucose (UA) TRACEH, Urine Ketones NEGATIVE, Urine Nitrite NEGATIVE, Urine Bilirubin NEGATIVE, Urine Urobilinogen 1.0, Urine Leukocyte Esterase 2+H, Urine RBC (Auto) 2+H, Urine RBC NONE, Urine WBC 2-5, Urine Squamous Epithelial Cells NONE, Urine Crystals NONE, Urine Bacteria FEWH, Urine Casts NONE, Urine Mucus NEGATIVE, Urine Yeast FEWH, Urine Culture Indicated YES 09/14/21 10:56: Glucometer 185H 09/14/21 15:12: Glucometer 182H 09/14/21 20:03: Glucometer 149H 09/15/21 01:41: Glucometer 150H 09/15/21 05:10: White Blood Count 15.9H, Red Blood Count 3.13L, Hemoglobin 9.2L, Hematocrit 27L, Mean Corpuscular Volume 87, Mean Corpuscular Hemoglobin 29, Mean Corpuscular Hemoglobin Concent 34, Red Cell Distribution Width 11.6, Platelet Count 143, Mean Platelet Volume 9.8, Immature Granulocyte % (Auto) 2, Neutrophils (%) (Auto) 83H, Lymphocytes (%) (Auto) 8L, Monocytes (%) (Auto) 6, Eosinophils (%) (Auto) 1, Basophils (%) (Auto) 0, Neutrophils # (Auto) 13.2H, Lymphocytes # (Auto) 1.3, Monocytes # (Auto) 1.0, Eosinophils # (Auto) 0.1, Basophils # (Auto) 0.0, Immature Granulocyte # (Auto) 0.3H, Sodium Level 133L, Potassium Level 4.1, Chloride Level 105, Carbon Dioxide Level 18L, Anion Gap 10, Blood Urea Nitrogen 35H, Creatinine 1.26, Estimat Glomerular Filtration Rate 73, BUN/Creatinine Ratio 28, Glucose Level 151H, Calcium Level 8.2L, Corrected Calcium 9.3, Total Bilirubin 0.6, Aspartate Amino Transf (AST/SGOT) 27, Alanine Aminotransferase (ALT/SGPT) 31, Alkaline Phosphatase 78, Total Protein 6.0L, Albumin 2.6L 09/15/21 11:00: Glucometer 193H 09/15/21 15:13: Glucometer 254H 09/15/21 20:10: Glucometer 192H 09/16/21 05:24: Glucometer 135H 09/16/21 06:10: White Blood Count 10.2, Red Blood Count 3.08L, Hemoglobin 9.1L, Hematocrit 27L, Mean Corpuscular Volume 88, Mean Corpuscular Hemoglobin 30, Mean Corpuscular Hemoglobin Concent 34, Red Cell Distribution Width 11.9, Platelet Count 135, Mean Platelet Volume 9.4, Immature Granulocyte % (Auto) 0, Neutrophils (%) (Auto) 77H, Lymphocytes (%) (Auto) 15, Monocytes (%) (Auto) 5, Eosinophils (%) (Auto) 3, Basophils (%) (Auto) 0, Neutrophils # (Auto) 7.8, Lymphocytes # (Auto) 1.5, Monocytes # (Auto) 0.5, Eosinophils # (Auto) 0.3, Basophils # (Auto) 0.0, Immature Granulocyte # (Auto) 0.0, Sodium Level 138, Potassium Level 3.9, Chloride Level 110H, Carbon Dioxide Level 20L, Anion Gap 8, Blood Urea Nitrogen 24H, Creatinine 1.01, Estimat Glomerular Filtration Rate 95, BUN/Creatinine Ratio 24, Glucose Level 145H, Calcium Level 8.3L, Corrected Calcium 9.4, Total Bilirubin 0.2, Aspartate Amino Transf (AST/SGOT) 22, Alanine Aminotransferase (ALT/SGPT) 31, Alkaline Phosphatase 71, Total Protein 5.8L, Albumin 2.6L 09/16/21 11:00: Glucometer 171H 09/16/21 16:41: Glucometer 178H 09/16/21 20:26: Glucometer 132H 09/17/21 05:24: Glucometer 106 09/17/21 11:21: Glucometer 165H 09/17/21 14:59: Glucometer 226H 09/17/21 16:07: Glucometer 209H 09/17/21 20:15: Glucometer 197H 09/18/21 06:07: Glucometer 135H 09/18/21 11:03: Glucometer 134H 09/18/21 15:24: Glucometer 164H 09/18/21 20:11: Glucometer 234H 09/19/21 05:54: Glucometer 136H 09/19/21 10:50: Glucometer 220H 09/19/21 15:26: Glucometer 204H 09/19/21 20:11: Glucometer 194H 09/20/21 05:37: Glucometer 121H 09/20/21 06:00: White Blood Count 6.3, Red Blood Count 3.55L, Hemoglobin 10.3L, Hematocrit 31L, Mean Corpuscular Volume 87, Mean Corpuscular Hemoglobin 29, Mean Corpuscular Hemoglobin Concent 33, Red Cell Distribution Width 11.7, Platelet Count 178, Mean Platelet Volume 9.5, Immature Granulocyte % (Auto) 1, Neutrophils (%) (Auto) 61, Lymphocytes (%) (Auto) 24, Monocytes (%) (Auto) 9, Eosinophils (%) (Auto) 5, Basophils (%) (Auto) 0, Neutrophils # (Auto) 3.9, Lymphocytes # (Auto) 1.5, Monocytes # (Auto) 0.6, Eosinophils # (Auto) 0.3, Basophils # (Auto) 0.0, Immature Granulocyte # (Auto) 0.1, Sodium Level 139, Potassium Level 3.4L, Chloride Level 107, Carbon Dioxide Level 24, Anion Gap 8, Blood Urea Nitrogen 15, Creatinine 0.86, Estimat Glomerular Filtration Rate 110, BUN/Creatinine Ratio 17, Glucose Level 129H, Calcium Level 8.9, Corrected Calcium 9.9, Total Bilirubin 0.2, Aspartate Amino Transf (AST/SGOT) 37H, Alanine Aminotransferase (ALT/SGPT) 56H, Alkaline Phosphatase 96, Total Protein 6.1L, Albumin 2.7L 09/20/21 11:19: Glucometer 191H 09/20/21 15:35: Glucometer 159H 09/20/21 20:27: Glucometer 152H 09/21/21 05:32: Glucometer 142H 09/21/21 11:02: Glucometer 146H 09/21/21 16:20: Glucometer 220H 09/21/21 20:51: Glucometer 191H 09/22/21 05:49: Glucometer 120H 09/22/21 11:05: Glucometer 168H 09/22/21 15:22: Glucometer 188H 09/22/21 20:30: Glucometer 138H 09/23/21 05:17: Glucometer 165H 09/23/21 10:07: Glucometer 138H 09/23/21 15:41: Glucometer 171H 09/23/21 20:13: Glucometer 154H 09/24/21 05:30: Glucometer 122H 09/24/21 10:57: Glucometer 217H 09/24/21 16:11: Glucometer 258H 09/24/21 19:59: Glucometer 244H 09/25/21 05:04: Glucometer 204H 09/25/21 10:52: Glucometer 177H 09/25/21 15:09: Glucometer 192H 09/25/21 21:09: Glucometer 149H 09/26/21 06:29: Glucometer 165H 09/26/21 10:47: Glucometer 164H 09/26/21 15:28: Glucometer 112H 09/26/21 20:22: Glucometer 123H 09/27/21 05:30: Glucometer 113H 09/27/21 06:36: White Blood Count 11.3H, Red Blood Count 3.73L, Hemoglobin 10.9L, Hematocrit 33L , Mean Corpuscular Volume 87, Mean Corpuscular Hemoglobin 29, Mean Corpuscular Hemoglobin Concent 34, Red Cell Distribution Width 11.9, Platelet Count 230, Me an Platelet Volume 9.0, Immature Granulocyte % (Auto) 1, Neutrophils (%) (Auto) 73, Lymphocytes (%) (Auto) 19, Monocytes (%) (Auto) 5, Eosinophils (%) (Auto) 2, Basophils (%) (Auto) 0, Neutrophils # (Auto) 8.3H, Lymphocytes # (Auto) 2.2, Monocytes # (Auto) 0.5, Eosinophils # (Auto) 0.2, Basophils # (Auto) 0.1, Immature Granulocyte # (Auto) 0.1, Sodium Level 137, Potassium Level 3.9, Chloride Level 107, Carbon Dioxide Level 22, Anion Gap 8, Blood Urea Nitrogen 35H, Creatinine 1.16, Estimat Glomerular Filtration Rate 80, BUN/Creatinine Ratio 30, Glucose Level 135H, Calcium Level 8.9, Corrected Calcium 9.7, Total Bilirubin 0.2, Aspartate Amino Transf (AST/SGOT) 30, Alanine Aminotransferase (ALT/SGPT) 39, Alkaline Phosphatase 74, Total Protein 6.5, Albumin 3.0L 09/27/21 11:04: Glucometer 142H 09/27/21 11:28: Glucometer 118H 09/27/21 15:26: Glucometer 123H 09/27/21 20:05: Glucometer 156H 09/28/21 05:26: Glucometer 126H Microbiology 09/14/21 Blood Culture - Final, Complete No growth 09/14/21 Urine Culture - Final, Complete Pseudomonas aeruginosa Pending Labs Microbiology Date/Time Source Procedure Growth Status 09/14/21 11:45 Peripheral Rt Hand Blood Culture - Final No growth Complete 09/14/21 11:36 Peripheral Rt Ac Blood Culture - Final No growth Complete 09/14/21 09:20 Urine U Cath,Nos Urine Culture - Final Pseudomonas aeruginosa Complete Laboratory Tests 09/01/21 12:56: Lab Scanned Report Referred Lab Report 09/01/21 17:20: Glucometer 199 09/01/21 20:47: Glucometer 144 09/02/21 05:27: Glucometer 59 09/02/21 05:30: White Blood Count 9.4, Red Blood Count 3.55, Hemoglobin 10.3, Hematocrit 31, Mean Corpuscular Volume 86, Mean Corpuscular Hemoglobin 29, Mean Corpuscular Hemoglobin Concent 34, Red Cell Distribution Width 11.6, Platelet Count 174, Mean Platelet Volume 9.4, Immature Granulocyte % (Auto) 1, Neutrophils (%) (Auto) 72, Lymphocytes (%) (Auto) 14, Monocytes (%) (Auto) 7, Eosinophils (%) (Auto) 6, Basophils (%) (Auto) 0, Neutrophils # (Auto) 6.8, Lymphocytes # (Auto) 1.3, Monocytes # (Auto) 0.7, Eosinophils # (Auto) 0.5, Basophils # (Auto) 0.0, Immature Granulocyte # (Auto) 0.1, Sodium Level 137, Potassium Level 3.9, Chloride Level 106, Carbon Dioxide Level 23, Anion Gap 8, Blood Urea Nitrogen 17, Creatinine 0.82, Estimat Glomerular Filtration Rate 112, BUN/Creatinine Ratio 21, Glucose Level 60, Calcium Level 8.2, Corrected Calcium 9.5, Total Bilirubin 0.5, Aspartate Amino Transf (AST/SGOT) 16, Alanine Aminotransferase (ALT/SGPT) 10, Alkaline Phosphatase 68, Total Protein 5.3, Albumin 2.4 09/02/21 06:10: Glucometer 104 09/02/21 10:47: Glucometer 101 09/02/21 16:31: Glucometer 148 09/02/21 20:20: Glucometer 213 09/03/21 05:36: Glucometer 152 09/03/21 11:43: Glucometer 153 09/03/21 15:30: Glucometer 183 09/03/21 20:17: Glucometer 185 09/04/21 05:35: Glucometer 135 09/04/21 10:56: Glucometer 170 09/04/21 16:34: Glucometer 225 09/04/21 20:28: Glucometer 278 09/05/21 05:35: Glucometer 145 09/05/21 10:53: Glucometer 202 09/05/21 15:01: Glucometer 252 09/05/21 20:09: Glucometer 197 09/06/21 05:01: Glucometer 215 09/06/21 05:16: White Blood Count 8.2, Red Blood Count 3.45, Hemoglobin 10.2, Hematocrit 30, Mean Corpuscular Volume 87, Mean Corpuscular Hemoglobin 30, Mean Corpuscular Hemoglobin Concent 34, Red Cell Distribution Width 11.6, Platelet Count 208, Mean Platelet Volume 9.1, Immature Granulocyte % (Auto) 1, Neutrophils (%) (Auto) 60, Lymphocytes (%) (Auto) 26, Monocytes (%) (Auto) 7, Eosinophils (%) (Auto) 5, Basophils (%) (Auto) 1, Neutrophils # (Auto) 5.0, Lymphocytes # (Auto) 2.1, Monocytes # (Auto) 0.6, Eosinophils # (Auto) 0.4, Basophils # (Auto) 0.0, Immature Granulocyte # (Auto) 0.1, Sodium Level 133, Potassium Level 4.0, Chloride Level 100, Carbon Dioxide Level 25, Anion Gap 8, Blood Urea Nitrogen 19, Creatinine 1.12, Estimat Glomerular Filtration Rate 84, BUN/Creatinine Ratio 17, Glucose Level 213, Calcium Level 8.5, Corrected Calcium 9.6, Total Bilirubin 0.3, Aspartate Amino Transf (AST/SGOT) 16, Alanine Aminotransferase (ALT/SGPT) 12, Alkaline Phosphatase 92, Total Protein 6.1, Albumin 2.6 09/06/21 11:03: Glucometer 249 09/06/21 14:51: Glucometer 175 09/06/21 20:08: Glucometer 199 09/07/21 05:29: Glucometer 127 09/07/21 11:05: Glucometer 214 09/07/21 16:30: Glucometer 197 09/07/21 20:32: Glucometer 202 09/08/21 06:17: Glucometer 161 09/08/21 10:45: Glucometer 163 09/08/21 15:06: Glucometer 194 09/08/21 19:59: Glucometer 198 09/09/21 06:05: Glucometer 131 09/09/21 10:57: Glucometer 194 09/09/21 15:29: Glucometer 160 09/09/21 20:13: Glucometer 130 09/10/21 05:34: Glucometer 125 09/10/21 11:09: Glucometer 272 09/10/21 15:38: Glucometer 147 09/10/21 20:42: Glucometer 200 09/11/21 05:50: Glucometer 96 09/11/21 10:49: Glucometer 187 09/11/21 15:31: Glucometer 170 09/11/21 20:47: Glucometer 181 09/12/21 05:07: Glucometer 119 09/12/21 10:47: Glucometer 176 09/12/21 16:26: Glucometer 317 09/12/21 20:22: Glucometer 142 09/13/21 05:56: White Blood Count 9.1, Red Blood Count 3.69, Hemoglobin 10.6, Hematocrit 32, Mean Corpuscular Volume 86, Mean Corpuscular Hemoglobin 29, Mean Corpuscular He moglobin Concent 33, Red Cell Distribution Width 11.4, Platelet Count 222, Mean Platelet Volume 9.7, Immature Granulocyte % (Auto) 0, Neutrophils (%) (Auto) 59, Lymphocytes (%) (Auto) 28, Monocytes (%) (Auto) 6, Eosinophils (%) (Auto) 6, Basophils (%) (Auto) 0, Neutrophils # (Auto) 5.4, Lymphocytes # (Auto) 2.6, Monocytes # (Auto) 0.5, Eosinophils # (Auto) 0.6, Basophils # (Auto) 0.0, Immature Granulocyte # (Auto) 0.0, Sodium Level 137, Potassium Level 4.0, Chloride Level 105, Carbon Dioxide Level 23, Anion Gap 9, Blood Urea Nitrogen 29, Creatinine 1.11, Estimat Glomerular Filtration Rate 84, BUN/Creatinine Ratio 26, Glucose Level 120, Calcium Level 9.0, Corrected Calcium 9.9, Total Bilirubin 0.2, Aspartate Amino Transf (AST/SGOT) 25, Alanine Aminotransferase (ALT/SGPT) 33, Alkaline Phosphatase 84, Total Protein 6.6, Albumin 2.9 09/13/21 06:14: Glucometer 113 09/13/21 11:10: Glucometer 289 09/13/21 17:18: Glucometer 157 09/13/21 20:49: Glucometer 229 09/14/21 05:30: Glucometer 196 09/14/21 08:56: Glucometer 177 09/14/21 09:15: White Blood Count 17.1, Red Blood Count 3.81, Hemoglobin 11.3, Hematocrit 33, Mean Corpuscular Volume 85, Mean Corpuscular Hemoglobin 30, Mean Corpuscular Hemoglobin Concent 35, Red Cell Distribution Width 11.4, Platelet Count 175, Mean Platelet Volume 9.3, Immature Granulocyte % (Auto) 1, Neutrophils (%) (Auto) 88, Lymphocytes (%) (Auto) 4, Monocytes (%) (Auto) 5, Eosinophils (%) (Auto) 2, Basophils (%) (Auto) 0, Neutrophils # (Auto) 15.1, Lymphocytes # (Auto) 0.8, Monocytes # (Auto) 0.9, Eosinophils # (Auto) 0.3, Basophils # (Auto) 0.1, Immature Granulocyte # (Auto) 0.1, Neutrophils % (Manual) 83, Lymphocytes % (Manual) 5, Monocytes % (Manual) 3, Eosinophils % (Manual) 5, Band Neutrophils 1, Atypical Lymphocytes 2, Reactive Lymphocytes 1, Clumped Platelets SLIGHT, Polychromasia MODERATE, Basophilic Stippling SLIGHT, Microcytosis SLIGHT, Sodium Level 135, Potassium Level 4.5, Chloride Level 103, Carbon Dioxide Level 22, Anion Gap 10, Blood Urea Nitrogen 33, Creatinine 1.15, Estimat Glomerular Filtration Rate 81, BUN/Creatinine Ratio 29, Glucose Level 183, Lactic Acid Level 0.68, Calcium Level 8.7, Corrected Calcium 9.4, Total Bilirubin 0.3, Aspartate Amino Transf (AST/SGOT) 22, Alanine Aminotransferase (ALT/SGPT) 32, Alkaline Phosphatase 89, Total Protein 6.8, Albumin 3.1, Procalcitonin 0.13 09/14/21 09:20: Urine Color YELLOW, Urine Clarity SL CLOUDY, Urine pH 6.5, Urine Specific [place] 1.020, Urine Protein 2+, Urine Glucose (UA) TRACE, Urine Ketones NEGATIVE, Urine Nitrite NEGATIVE, Urine Bilirubin NEGATIVE, Urine Urobilinogen 1.0, Urine Leukocyte Esterase 2+, Urine RBC (Auto) 2+, Urine RBC NONE, Urine WBC 2-5, Urine Squamous Epithelial Cells NONE, Urine Crystals NONE, Urine Bacteria FEW, Urine Casts NONE, Urine Mucus NEGATIVE, Urine Yeast FEW, Urine Culture Indicated YES 09/14/21 10:56: Glucometer 185 09/14/21 15:12: Glucometer 182 09/14/21 20:03: Glucometer 149 09/15/21 01:41: Glucometer 150 09/15/21 05:10: White Blood Count 15.9, Red Blood Count 3.13, Hemoglobin 9.2, Hematocrit 27, Mean Corpuscular Volume 87, Mean Corpuscular Hemoglobin 29, Mean Corpuscular Hemoglobin Concent 34, Red Cell Distribution Width 11.6, Platelet Count 143, Mean Platelet Volume 9.8, Immature Granulocyte % (Auto) 2, Neutrophils (%) (Auto) 83, Lymphocytes (%) (Auto) 8, Monocytes (%) (Auto) 6, Eosinophils (%) (Auto) 1, Basophils (%) (Auto) 0, Neutrophils # (Auto) 13.2, Lymphocytes # (Auto) 1.3, Monocytes # (Auto) 1.0, Eosinophils # (Auto) 0.1, Basophils # (Auto) 0.0, Immature Granulocyte # (Auto) 0.3, Sodium Level 133, Potassium Level 4.1, Chloride Level 105, Carbon Dioxide Level 18, Anion Gap 10, Blood Urea Nitrogen 35, Creatinine 1.26, Estimat Glomerular Filtration Rate 73, BUN/Creatinine Ratio 28, Glucose Level 151, Calcium Level 8.2, Corrected Calcium 9.3, Total Bilirubin 0.6, Aspartate Amino Transf (AST/SGOT) 27, Alanine Aminotransferase (ALT/SGPT) 31, Alkaline Phosphatase 78, Total Protein 6.0, Albumin 2.6 09/15/21 11:00: Glucometer 193 09/15/21 15:13: Glucometer 254 09/15/21 20:10: Glucometer 192 09/16/21 05:24: Glucometer 135 09/16/21 06:10: White Blood Count 10.2, Red Blood Count 3.08, Hemoglobin 9.1, Hematocrit 27, Mean Corpuscular Volume 88, Mean Corpuscular Hemoglobin 30, Mean Corpuscular Hemoglobin Concent 34, Red Cell Distribution Width 11.9, Platelet Count 135, Mean Platelet Volume 9.4, Immature Granulocyte % (Auto) 0, Neutrophils (%) (Auto) 77, Lymphocytes (%) (Auto) 15, Monocytes (%) (Auto) 5, Eosinophils (%) (Auto) 3, Basophils (%) (Auto) 0, Neutrophils # (Auto) 7.8, Lymphocytes # (Auto) 1.5, Monocytes # (Auto) 0.5, Eosinophils # (Auto) 0.3, Basophils # (Auto) 0.0, Immature Granulocyte # (Auto) 0.0, Sodium Level 138, Potassium Level 3.9, Chloride Level 110, Carbon Dioxide Level 20, Anion Gap 8, Blood Urea Nitrogen 24, Creatinine 1.01, Estimat Glomerular Filtration Rate 95, BUN/Creatinine Ratio 24, Glucose Level 145, Calcium Level 8.3, Corrected Calcium 9.4, Total Bilirubin 0.2, Aspartate Amino Transf (AST/SGOT) 22, Alanine Aminotransferase (ALT/SGPT) 31, Alkaline Phosphatase 71, Total Protein 5.8, Albumin 2.6 09/16/21 11:00: Glucometer 171 09/16/21 16:41: Glucometer 178 09/16/21 20:26: Glucometer 132 09/17/21 05:24: Glucometer 106 09/17/21 11:21: Glucometer 165 09/17/21 14:59: Glucometer 226 09/17/21 16:07: Glucometer 209 09/17/21 20:15: Glucometer 197 09/18/21 06:07: Glucometer 135 09/18/21 11:03: Glucometer 134 09/18/21 15:24: Glucometer 164 09/18/21 20:11: Glucometer 234 09/19/21 05:54: Glucometer 136 09/19/21 10:50: Glucometer 220 09/19/21 15:26: Glucometer 204 09/19/21 20:11: Glucometer 194 09/20/21 05:37: Glucometer 121 09/20/21 06:00: White Blood Count 6.3, Red Blood Count 3.55, Hemoglobin 10.3, Hematocrit 31, Mean Corpuscular Volume 87, Mean Corpuscular Hemoglobin 29, Mean Corpuscular Hemoglobin Concent 33, Red Cell Distribution Width 11.7, Platelet Count 178, Mean Platelet Volume 9.5, Immature Granulocyte % (Auto) 1, Neutrophils (%) (Auto) 61, Lymphocytes (%) (Auto) 24, Monocytes (%) (Auto) 9, Eosinophils (%) (Auto) 5, Basophils (%) (Auto) 0, Neutrophils # (Auto) 3.9, Lymphocytes # (Auto) 1.5, Monocytes # (Auto) 0.6, Eosinophils # (Auto) 0.3, Basophils # (Auto) 0.0, Immature Granulocyte # (Auto) 0.1, Sodium Level 139, Potassium Level 3.4, Chloride Level 107, Carbon Dioxide Level 24, Anion Gap 8, Blood Urea Nitrogen 15, Creatinine 0.86, Estimat Glomerular Filtration Rate 110, BUN/Creatinine Ratio 17, Glucose Level 129, Calcium Level 8.9, Corrected Calcium 9.9, Total Bilirubin 0.2, Aspartate Amino Transf (AST/SGOT) 37, Alanine Aminotransferase (ALT/SGPT) 56, Alkaline Phosphatase 96, Total Protein 6.1, Albumin 2.7 09/20/21 11:19: Glucometer 191 09/20/21 15:35: Glucometer 159 09/20/21 20:27: Glucometer 152 09/21/21 05:32: Glucometer 142 09/21/21 11:02: Glucometer 146 09/21/21 16:20: Glucometer 220 09/21/21 20:51: Glucometer 191 09/22/21 05:49: Glucometer 120 09/22/21 11:05: Glucometer 168 09/22/21 15:22: Glucometer 188 09/22/21 20:30: Glucometer 138 09/23/21 05:17: Glucometer 165 09/23/21 10:07: Glucometer 138 09/23/21 15:41: Glucometer 171 09/23/21 20:13: Glucometer 154 09/24/21 05:30: Glucometer 122 09/24/21 10:57: Glucometer 217 09/24/21 16:11: Glucometer 258 09/24/21 19:59: Glucometer 244 09/25/21 05:04: Glucometer 204 09/25/21 10:52: Glucometer 177 09/25/21 15:09: Glucometer 192 09/25/21 21:09: Glucometer 149 09/26/21 06:29: Glucometer 165 09/26/21 10:47: Glucometer 164 09/26/21 15:28: Glucometer 112 09/26/21 20:22: Glucometer 123 09/27/21 05:30: Glucometer 113 09/27/21 06:36: White Blood Count 11.3, Red Blood Count 3.73, Hemoglobin 10.9, Hematocrit 33, Mean Corpuscular Volume 87, Mean Corpuscular Hemoglobin 29, Mean Corpuscular Hemoglobin Concent 34, Red Cell Distribution Width 11.9, Platelet Count 230, Mean Platelet Volume 9.0, Immature Granulocyte % (Auto) 1, Neutrophils (%) (Auto) 73, Lymphocytes (%) (Auto) 19, Monocytes (%) (Auto) 5, Eosinophils (%) (Auto) 2, Basophils (%) (Auto) 0, Neutrophils # (Auto) 8.3, Lymphocytes # (Auto) 2.2, Monocytes # (Auto) 0.5, Eosinophils # (Auto) 0.2, Basophils # (Auto) 0.1, Immature Granulocyte # (Auto) 0.1, Sodium Level 137, Potassium Level 3.9, Chloride Level 107, Carbon Dioxide Level 22, Anion Gap 8, Blood Urea Nitrogen 35, Creatinine 1.16, Estimat Glomerular Filtration Rate 80, BUN/Creatinine Ratio 30, Glucose Level 135, Calcium Level 8.9, Corrected Calcium 9.7, Total Bilirubin 0.2, Aspartate Amino Transf (AST/SGOT) 30, Alanine Aminotransferase (ALT/SGPT) 39, Alkaline Phosphatase 74, Total Protein 6.5, Albumin 3.0 09/27/21 11:04: Glucometer 142 09/27/21 11:28: Glucometer 118 09/27/21 15:26: Glucometer 123 09/27/21 20:05: Glucometer 156 09/28/21 05:26: Glucometer 126 Discharge Home Medications: Active Scripts Active Bethanechol Chloride 25 Mg Tablet 25 Mg PO BID WITH MEALS 90 Days Hydrocortisone 453.6 Gm Cream..g. 0 Gm TOP BID Glyburide 2.5 Mg Tablet 1.25 Mg PO DAILY@0630 Pantoprazole Sodium 40 Mg Tablet.dr 40 Mg PO BID Sucralfate 1 Gm Tablet 1 Gm PO ACHS Amlodipine Besylate 5 Mg Tablet 5 Mg PO DAILY Metoprolol Tartrate 25 Mg Tablet 12.5 Mg PO BID Rosuvastatin Calcium 20 Mg Tablet 20 Mg PO HS Flomax (Tamsulosin HCl) 0.4 Mg Cap 0.4 Mg PO DAILY@1800 Reported Ibuprofen 200 Mg Tablet 400 Mg PO Q8H PRN TAKES 2 (200MG) TABLETS Acetaminophen 500 Mg Tablet 1,000 Mg PO Q8H PRN TAKES 2 (500MG) TABLETS Instructions to patient/family Please see electronic discharge instructions given to patient. Diagnosis/Problems Diagnosis/Problems (1) Cervical spine syndrome (2) Myoclonus (3) Type 2 diabetes mellitus without complication (4) Primary hypertension (5) Mixed hyperlipidemia (6) History of CVA with residual deficit (7) Right sided weakness (8) Cervical cord myelomalacia (9) Spinal cord contusion (10) Fall Status: Acute SHAYNE JAMES DO Sep 28, 2021 06:38
[2021-09-28] MEDS: SUCRALFATE 1 GM (CARAFATE) TAB PO SCH ×2 (06:39→11:25)
[2021-09-28] MEDS: glyBURIDE 2.5 MG (MICRONASE) TAB PO SCH (06:40)
[2021-09-28 07:22] VITALS: BP 137/84
[2021-09-28 07:25] VITALS: BP 117/71
[2021-09-28] MEDS: PANTOPRAZOLE 40 MG (PROTONIX) TAB PO SCH (08:19)
[2021-09-28] MEDS: amLODIPine 5 MG (NORVASC) TAB PO SCH (08:19)
[2021-09-28] MEDS: meTOprolol TARTRATE 25 MG (LOPRESSOR) TABLET PO SCH (08:19)
[2021-09-28] MEDS: ENOXAPARIN 40 MG/0.4 ML (LOVENOX) SYR SC SCH (08:19)
[2021-09-28] MEDS: HYDROCORTISONE 1% CREAM 30 GM TUBE TOP SCH (08:23)
[2021-09-28] MEDS ORDERED: BETHANECHOL 25 MG (URECHOLINE) TAB PO SCH (09:45)
[2021-09-28] MEDS ORDERED: BETH25TA2 PO ×2 (10:19→10:22)
--- NOTE | 2021-09-28 10:23 | Discharge Summary ---
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 Diabetes [id number] Hypertension Hyperlipidemia Previous CVA with right-sided weakness Coccyx decubitus ulcers Pseudomonas UTI status post SIRS completed treatment with cefepime 09/20/2021 Plan: Aggressive therapy Pain control Monitor bowel function Insulin 09/02/2021: Supportive care Aggressive therapy Hold insulin 09/03/2021: Supportive care Cervical spine collar Tyson catheter 09/04/2021: Supportive care Cervical spine collar Tyson catheter Pilar lift We'll start Lovenox tomorrow 09/05/2021: Supportive care Lovenox Maintain Tyson 09/06/2021: Maintain Tyson Continues to be Pilar lift 09/07/2021: Coccyx decubitus ulcer management 09/08/2021: Imodium for loose stools Continue to progress 09/09/2021: Imodium for loose stools Supportive care 09/10/2021: Supportive care Dramatic improvement 09/11/2021: Supportive care We will attempt to DC Tyson catheter this week 09/12/2021: Attempt to DC Tyson catheter Supportive care 09/13/21: Voiding trial Monitor sugar 09/14/2021: Empiric antibiotics Urology consultation 09/15/2021: DC vancomycin Maintain cefepime 09/16/2021: Maintain cefepime Supportive care Hep-Lock IV fluid 09/17/2021: Maintain antibiotics 09/18/2021: Supportive care Antibiotics 09/19/2021: Supportive care Antibiotics 09/20/2021: Completed cefepime Appreciate urology 09/21/2021: Dramatic improvement Continue supportive care 09/22/2021: Supportive care Bowel routine 09/23/2021: Supportive care Bowel routine 09/24/2021: Tyson discontinued Voiding very well 09/25/2021: Supportive care Continue voiding management Bowel regimen 09/26/2021: Dramatic improvement now ambulating Voiding well Blood sugars better 09/27/2021: Discharge home tomorrow (1) Cervical spine syndrome (2) Myoclonus (3) Type 2 diabetes mellitus without complication (4) Primary hypertension (5) Mixed hyperlipidemia (6) History of CVA with residual deficit (7) Right sided weakness (8) Cervical cord myelomalacia (9) Spinal cord contusion (10) Fall Status: Acute Discharge Summary Discharge Physical Examination Allergies: Coded Allergies: No Known Drug Allergies (Unverified , 07/09/21) Vitals & I&Os Vital Signs Date Time Temp Pulse Resp B/P (MAP) Pulse Ox O2 Delivery O2 Flow Rate FiO2 09/28/21 13:12 36.7 73 16 117/71 100 Room Air General Appearance: Alert, Oriented X3, Cooperative Respiratory: Clear to Auscultation Cardiovascular: Regular Rate Neuro: Normal Gait (with walker) Psych/Mental Status: Mental Status NL Hospital Course Was the Problem List Reviewed?: Yes Hospital course: Patient had a lengthy hospital course for over 1 month after he returned from [facility] [place] where I sent him for severe cervical spine stenosis requiring urgent decompression by Dr. SAWYER. Patient was nearly quadriplegic and with intensive rehab PT and OT and urology and bowel routine he was able to regain enough function to walk with a walker and Tyson catheter discontinued and voiding well and on a bowel regimen to prevent fecal incontinence and he was able to return home with his family. He did have an episode of sepsis from UTI of Pseudomonas he completed cefepime. Labs remained stable and he was given glyburide 1.25 twice daily for diabetes along with hypertensive meds and he was deemed stable for discharge. Labs (last 24 hrs) Laboratory Tests 09/01/21 12:56: Lab Scanned Report Referred Lab Report 09/01/21 17:20: Glucometer 199H 09/01/21 20:47: Glucometer 144H 09/02/21 05:27: Glucometer 59*L 09/02/21 05:30: White Blood Count 9.4, Red Blood Count 3.55L, Hemoglobin 10.3L, Hematocrit 31L, Mean Corpuscular Volume 86, Mean Corpuscular Hemoglobin 29, Mean Corpuscular Hemoglobin Concent 34, Red Cell Distribution Width 11.6, Platelet Count 174, Mean Platelet Volume 9.4, Immature Granulocyte % (Auto) 1, Neutrophils (%) (Auto) 72, Lymphocytes (%) (Auto) 14, Monocytes (%) (Auto) 7, Eosinophils (%) (Auto) 6, Basophils (%) (Auto) 0, Neutrophils # (Auto) 6.8, Lymphocytes # (Auto) 1.3, Monocytes # (Auto) 0.7, Eosinophils # (Auto) 0.5H, Basophils # (Auto) 0.0, Immature Granulocyte # (Auto) 0.1, Sodium Level 137, Potassium Level 3.9, Chloride Level 106, Carbon Dioxide Level 23, Anion Gap 8, Blood Urea Nitrogen 17, Creatinine 0.82, Estimat Glomerular Filtration Rate 112, BUN/Creatinine Ratio 21, Glucose Level 60*L, Calcium Level 8.2L, Corrected Calcium 9.5, Total Bilirubin 0.5, Aspartate Amino Transf (AST/SGOT) 16, Alanine Aminotransferase (ALT/SGPT) 10, Alkaline Phosphatase 68, Total Protein 5.3L, Albumin 2.4L 09/02/21 06:10: Glucometer 104 09/02/21 10:47: Glucometer 101 09/02/21 16:31: Glucometer 148H 09/02/21 20:20: Glucometer 213H 09/03/21 05:36: Glucometer 152H 09/03/21 11:43: Glucometer 153H 09/03/21 15:30: Glucometer 183H 09/03/21 20:17: Glucometer 185H 09/04/21 05:35: Glucometer 135H 09/04/21 10:56: Glucometer 170H 09/04/21 16:34: Glucometer 225H 09/04/21 20:28: Glucometer 278H 09/05/21 05:35: Glucometer 145H 09/05/21 10:53: Glucometer 202H 09/05/21 15:01: Glucometer 252H 09/05/21 20:09: Glucometer 197H 09/06/21 05:01: Glucometer 215H 09/06/21 05:16: White Blood Count 8.2, Red Blood Count 3.45L, Hemoglobin 10.2L, Hematocrit 30L, Mean Corpuscular Volume 87, Mean Corpuscular Hemoglobin 30, Mean Corpuscular Hemoglobin Concent 34, Red Cell Distribution Width 11.6, Platelet Count 208, Mean Platelet Volume 9.1, Immature Granulocyte % (Auto) 1, Neutrophils (%) (Auto) 60, Lymphocytes (%) (Auto) 26, Monocytes (%) (Auto) 7, Eosinophils (%) (Auto) 5, Basophils (%) (Auto) 1, Neutrophils # (Auto) 5.0, Lymphocytes # (Auto) 2.1, Monocytes # (Auto) 0.6, Eosinophils # (Auto) 0.4H, Basophils # (Auto) 0.0, Immature Granulocyte # (Auto) 0.1, Sodium Level 133L, Potassium Level 4.0, Chloride Level 100, Carbon Dioxide Level 25, Anion Gap 8, Blood Urea Nitrogen 19H, Creatinine 1.12, Estimat Glomerular Filtration Rate 84, BUN/Creatinine Ratio 17, Glucose Level 213H, Calcium Level 8.5, Corrected Calcium 9.6, Total Bilirubin 0.3, Aspartate Amino Transf (AST/SGOT) 16, Alanine Aminotransferase ( ALT/SGPT) 12, Alkaline Phosphatase 92, Total Protein 6.1L, Albumin 2.6L 09/06/21 11:03: Glucometer 249H 09/06/21 14:51: Glucometer 175H 09/06/21 20:08: Glucometer 199H 09/07/21 05:29: Glucometer 127H 09/07/21 11:05: Glucometer 214H 09/07/21 16:30: Glucometer 197H 09/07/21 20:32: Glucometer 202H 09/08/21 06:17: Glucometer 161H 09/08/21 10:45: Glucometer 163H 09/08/21 15:06: Glucometer 194H 09/08/21 19:59: Glucometer 198H 09/09/21 06:05: Glucometer 131H 09/09/21 10:57: Glucometer 194H 09/09/21 15:29: Glucometer 160H 09/09/21 20:13: Glucometer 130H 09/10/21 05:34: Glucometer 125H 09/10/21 11:09: Glucometer 272H 09/10/21 15:38: Glucometer 147H 09/10/21 20:42: Glucometer 200H 09/11/21 05:50: Glucometer 96 09/11/21 10:49: Glucometer 187H 09/11/21 15:31: Glucometer 170H 09/11/21 20:47: Glucometer 181H 09/12/21 05:07: Glucometer 119H 09/12/21 10:47: Glucometer 176H 09/12/21 16:26: Glucometer 317H 09/12/21 20:22: Glucometer 142H 09/13/21 05:56: White Blood Count 9.1, Red Blood Count 3.69L, Hemoglobin 10.6L, Hematocrit 32L, Mean Corpuscular Volume 86, Mean Corpuscular Hemoglobin 29, Mean Corpuscular Hemoglobin Concent 33, Red Cell Distribution Width 11.4, Platelet Count 222, Mean Platelet Volume 9.7, Immature Granulocyte % (Auto) 0, Neutrophils (%) (Auto) 59, Lymphocytes (%) (Auto) 28, Monocytes (%) (Auto) 6, Eosinophils (%) (Auto) 6, Basophils (%) (Auto) 0, Neutrophils # (Auto) 5.4, Lymphocytes # (Auto) 2.6, Monocytes # (Auto) 0.5, Eosinophils # (Auto) 0.6H, Basophils # (Auto) 0.0, Immature Granulocyte # (Auto) 0.0, Sodium Level 137, Potassium Level 4.0, Chloride Level 105, Carbon Dioxide Level 23, Anion Gap 9, Blood Urea Nitrogen 29H, Creatinine 1.11, Estimat Glomerular Filtration Rate 84, BUN/Creatinine Ratio 26, Glucose Level 120H, Calcium Level 9.0, Corrected Calcium 9.9, Total Bilirubin 0.2, Aspartate Amino Transf (AST/SGOT) 25, Alanine Aminotransferase (ALT/SGPT) 33, Alkaline Phosphatase 84, Total Protein 6.6, Albumin 2.9L 09/13/21 06:14: Glucometer 113H 09/13/21 11:10: Glucometer 289H 09/13/21 17:18: Glucometer 157H 09/13/21 20:49: Glucometer 229H 09/14/21 05:30: Glucometer 196H 09/14/21 08:56: Glucometer 177H 09/14/21 09:15: White Blood Count 17.1H, Red Blood Count 3.81L, Hemoglobin 11.3L, Hematocrit 33L , Mean Corpuscular Volume 85, Mean Corpuscular Hemoglobin 30, Mean Corpuscular Hemoglobin Concent 35, Red Cell Distribution Width 11.4, Platelet Count 175, Mean Platelet Volume 9.3, Immature Granulocyte % (Auto) 1, Neutrophils (%) (Auto) 88H, Lymphocytes (%) (Auto) 4L, Monocytes (%) (Auto) 5, Eosinophils (%) (Auto) 2, Basophils (%) (Auto) 0, Neutrophils # (Auto) 15.1H, Lymphocytes # (Auto) 0.8L, Monocytes # (Auto) 0.9, Eosinophils # (Auto) 0.3, Basophils # (Auto) 0.1, Immature Granulocyte # (Auto) 0.1, Neutrophils % (Manual) 83, Lymphocytes % (Manual) 5, Monocytes % (Manual) 3, Eosinophils % (Manual) 5, Band Neutrophils 1, Atypical Lymphocytes 2, Reactive Lymphocytes 1, Clumped Platelets SLIGHT, Polychromasia MODERATE, Basophilic Stippling SLIGHT, Microcytosis SLIGHT, Sodium Level 135, Potassium Level 4.5, Chloride Level 103, Carbon Dioxide Level 22, Anion Gap 10, Blood Urea Nitrogen 33H, Creatinine 1.15, Estimat Glomerular Filtration Rate 81, BUN/Creatinine Ratio 29, Glucose Level 183H, Lactic Acid Level 0.68, Calcium Level 8.7, Corrected Calcium 9.4, Total Bilirubin 0.3, Aspartate Amino Transf (AST/SGOT) 22, Alanine Aminotransferase (ALT/SGPT) 32, Alkaline Phosphatase 89, Total Protein 6.8, Albumin 3.1L, Procalcitonin 0.13H 09/14/21 09:20: Urine Color YELLOW, Urine Clarity SL CLOUDY, Urine pH 6.5, Urine Specific [place] 1.020, Urine Protein 2+H, Urine Glucose (UA) TRACEH, Urine Ketones NEGATIVE, Urine Nitrite NEGATIVE, Urine Bilirubin NEGATIVE, Urine Urobilinogen 1.0, Urine Leukocyte Esterase 2+H, Urine RBC (Auto) 2+H, Urine RBC NONE, Urine WBC 2-5, Urine Squamous Epithelial Cells NONE, Urine Crystals NONE, Urine Bacteria FEWH, Urine Casts NONE, Urine Mucus NEGATIVE, Urine Yeast FEWH, Urine Culture Indicated YES 09/14/21 10:56: Glucometer 185H 09/14/21 15:12: Glucometer 182H 09/14/21 20:03: Glucometer 149H 09/15/21 01:41: Glucometer 150H 09/15/21 05:10: White Blood Count 15.9H, Red Blood Count 3.13L, Hemoglobin 9.2L, Hematocrit 27L, Mean Corpuscular Volume 87, Mean Corpuscular Hemoglobin 29, Mean Corpuscular Hemoglobin Concent 34, Red Cell Distribution Width 11.6, Platelet Count 143, Mean Platelet Volume 9.8, Immature Granulocyte % (Auto) 2, Neutrophils (%) (Auto) 83H, Lymphocytes (%) (Auto) 8L, Monocytes (%) (Auto) 6, Eosinophils (%) (Auto) 1, Basophils (%) (Auto) 0, Neutrophils # (Auto) 13.2H, Lymphocytes # (Auto) 1.3, Monocytes # (Auto) 1.0, Eosinophils # (Auto) 0.1, Basophils # (Auto) 0.0, Immature Granulocyte # (Auto) 0.3H, Sodium Level 133L, Potassium Level 4.1, Chloride Level 105, Carbon Dioxide Level 18L, Anion Gap 10, Blood Urea Nitrogen 35H, Creatinine 1.26, Estimat Glomerular Filtration Rate 73, BUN/Creatinine Ratio 28, Glucose Level 151H, Calcium Level 8.2L, Corrected Calcium 9.3, Total Bilirubin 0.6, Aspartate Amino Transf (AST/SGOT) 27, Alanine Aminotransferase (ALT/SGPT) 31, Alkaline Phosphatase 78, Total Protein 6.0L, Albumin 2.6L 09/15/21 11:00: Glucometer 193H 09/15/21 15:13: Glucometer 254H 09/15/21 20:10: Glucometer 192H 09/16/21 05:24: Glucometer 135H 09/16/21 06:10: White Blood Count 10.2, Red Blood Count 3.08L, Hemoglobin 9.1L, Hematocrit 27L, Mean Corpuscular Volume 88, Mean Corpuscular Hemoglobin 30, Mean Corpuscular Hemoglobin Concent 34, Red Cell Distribution Width 11.9, Platelet Count 135, Mean Platelet Volume 9.4, Immature Granulocyte % (Auto) 0, Neutrophils (%) (Auto) 77H, Lymphocytes (%) (Auto) 15, Monocytes (%) (Auto) 5, Eosinophils (%) (Auto) 3, Basophils (%) (Auto) 0, Neutrophils # (Auto) 7.8, Lymphocytes # (Auto) 1.5, Monocytes # (Auto) 0.5, Eosinophils # (Auto) 0.3, Basophils # (Auto) 0.0, Immature Granulocyte # (Auto) 0.0, Sodium Level 138, Potassium Level 3.9, Chloride Level 110H, Carbon Dioxide Level 20L, Anion Gap 8, Blood Urea Nitrogen 24H, Creatinine 1.01, Estimat Glomerular Filtration Rate 95, BUN/Creatinine R atio 24, Glucose Level 145H, Calcium Level 8.3L, Corrected Calcium 9.4, Total Bilirubin 0.2, Aspartate Amino Transf (AST/SGOT) 22, Alanine Aminotransferase (ALT/SGPT) 31, Alkaline Phosphatase 71, Total Protein 5.8L, Albumin 2.6L 09/16/21 11:00: Glucometer 171H 09/16/21 16:41: Glucometer 178H 09/16/21 20:26: Glucometer 132H 09/17/21 05:24: Glucometer 106 09/17/21 11:21: Glucometer 165H 09/17/21 14:59: Glucometer 226H 09/17/21 16:07: Glucometer 209H 09/17/21 20:15: Glucometer 197H 09/18/21 06:07: Glucometer 135H 09/18/21 11:03: Glucometer 134H 09/18/21 15:24: Glucometer 164H 09/18/21 20:11: Glucometer 234H 09/19/21 05:54: Glucometer 136H 09/19/21 10:50: Glucometer 220H 09/19/21 15:26: Glucometer 204H 09/19/21 20:11: Glucometer 194H 09/20/21 05:37: Glucometer 121H 09/20/21 06:00: White Blood Count 6.3, Red Blood Count 3.55L, Hemoglobin 10.3L, Hematocrit 31L, Mean Corpuscular Volume 87, Mean Corpuscular Hemoglobin 29, Mean Corpuscular Hemoglobin Concent 33, Red Cell Distribution Width 11.7, Platelet Count 178, Mean Platelet Volume 9.5, Immature Granulocyte % (Auto) 1, Neutrophils (%) (Auto) 61, Lymphocytes (%) (Auto) 24, Monocytes (%) (Auto) 9, Eosinophils (%) (Auto) 5, Basophils (%) (Auto) 0, Neutrophils # (Auto) 3.9, Lymphocytes # (Auto) 1.5, Monocytes # (Auto) 0.6, Eosinophils # (Auto) 0.3, Basophils # (Auto) 0.0, Immature Granulocyte # (Auto) 0.1, Sodium Level 139, Potassium Level 3.4L, Chloride Level 107, Carbon Dioxide Level 24, Anion Gap 8, Blood Urea Nitrogen 15, Creatinine 0.86, Estimat Glomerular Filtration Rate 110, BUN/Creatinine Ratio 17, Glucose Level 129H, Calcium Level 8.9, Corrected Calcium 9.9, Total Bilirubin 0.2, Aspartate Amino Transf (AST/SGOT) 37H, Alanine Aminotransferase (ALT/SGPT) 56H, Alkaline Phosphatase 96, Total Protein 6.1L, Albumin 2.7L 09/20/21 11:19: Glucometer 191H 09/20/21 15:35: Glucometer 159H 09/20/21 20:27: Glucometer 152H 09/21/21 05:32: Glucometer 142H 09/21/21 11:02: Glucometer 146H 09/21/21 16:20: Glucometer 220H 09/21/21 20:51: Glucometer 191H 09/22/21 05:49: Glucometer 120H 09/22/21 11:05: Glucometer 168H 09/22/21 15:22: Glucometer 188H 09/22/21 20:30: Glucometer 138H 09/23/21 05:17: Glucometer 165H 09/23/21 10:07: Glucometer 138H 09/23/21 15:41: Glucometer 171H 09/23/21 20:13: Glucometer 154H 09/24/21 05:30: Glucometer 122H 09/24/21 10:57: Glucometer 217H 09/24/21 16:11: Glucometer 258H 09/24/21 19:59: Glucometer 244H 09/25/21 05:04: Glucometer 204H 09/25/21 10:52: Glucometer 177H 09/25/21 15:09: Glucometer 192H 09/25/21 21:09: Glucometer 149H 09/26/21 06:29: Glucometer 165H 09/26/21 10:47: Glucometer 164H 09/26/21 15:28: Glucometer 112H 09/26/21 20:22: Glucometer 123H 09/27/21 05:30: Glucometer 113H 09/27/21 06:36: White Blood Count 11.3H, Red Blood Count 3.73L, Hemoglobin 10.9L, Hematocrit 33L , Mean Corpuscular Volume 87, Mean Corpuscular Hemoglobin 29, Mean Corpuscular Hemoglobin Concent 34, Red Cell Distribution Width 11.9, Platelet Count 230, Mean Platelet Volume 9.0, Immature Granulocyte % (Auto) 1, Neutrophils (%) (Auto) 73, Lymphocytes (%) (Auto) 19, Monocytes (%) (Auto) 5, Eosinophils (%) (Auto) 2, Basophils (%) (Auto) 0, Neutrophils # (Auto) 8.3H, Lymphocytes # (Auto) 2.2, Monocytes # (Auto) 0.5, Eosinophils # (Auto) 0.2, Basophils # (Auto) 0.1, Immature Granulocyte # (Auto) 0.1, Sodium Level 137, Potassium Level 3.9, Chloride Level 107, Carbon Dioxide Level 22, Anion Gap 8, Blood Urea Nitrogen 35H, Creatinine 1.16, Estimat Glomerular Filtration Rate 80, BUN/Creatinine Ratio 30, Glucose Level 135H, Calcium Level 8.9, Corrected Calcium 9.7, Total Bilirubin 0.2, Aspartate Amino Transf (AST/SGOT) 30, Alanine Aminotransferase (ALT/SGPT) 39, Alkaline Phosphatase 74, Total Protein 6.5, Albumin 3.0L 09/27/21 11:04: Glucometer 142H 09/27/21 11:28: Glucometer 118H 09/27/21 15:26: Glucometer 123H 09/27/21 20:05: Glucometer 156H 09/28/21 05:26: Glucometer 126H 09/28/21 10:57: Glucometer 104 Microbiology 09/14/21 Blood Culture - Final, Complete No growth 09/14/21 Urine Culture - Final, Complete Pseudomonas aeruginosa Pending Labs Microbiology Date/Time Source Procedure Growth Status 09/14/21 11:45 Peripheral Rt Hand Blood Culture - Final No growth Complete 09/14/21 11:36 Peripheral Rt Ac Blood Culture - Final No growth Complete 09/14/21 09:20 Urine U Cath,Nos Urine Culture - Final Pseudomonas aeruginosa Complete Laboratory Tests 09/01/21 12:56: Lab Scanned Report Referred Lab Report 09/01/21 17:20: Glucometer 199 09/01/21 20:47: Glucometer 144 09/02/21 05:27: Glucometer 59 09/02/21 05:30: White Blood Count 9.4, Red Blood Count 3.55, Hemoglobin 10.3, Hematocrit 31, Mean Corpuscular Volume 86, Mean Corpuscular Hemoglobin 29, Mean Corpuscular Hemoglobin Concent 34, Red Cell Distribution Width 11.6, Platelet Count 174, Mean Platelet Volume 9.4, Immature Granulocyte % (Auto) 1, Neutrophils (%) (Auto) 72, Lymphocytes (%) (Auto) 14, Monocytes (%) (Auto) 7, Eosinophils (%) (Auto) 6, Basophils (%) (Auto) 0, Neutrophils # (Auto) 6.8, Lymphocytes # (Auto) 1.3, Monocytes # (Auto) 0.7, Eosinophils # (Auto) 0.5, Basophils # (Auto) 0.0, Immature Granulocyte # (Auto) 0.1, Sodium Level 137, Potassium Level 3.9, Chloride Level 106, Carbon Dioxide Level 23, Anion Gap 8, Blood Urea Nitrogen 1 7, Creatinine 0.82, Estimat Glomerular Filtration Rate 112, BUN/Creatinine Ratio 21, Glucose Level 60, Calcium Level 8.2, Corrected Calcium 9.5, Total Bilirubin 0.5, Aspartate Amino Transf (AST/SGOT) 16, Alanine Aminotransferase (ALT/SGPT) 10, Alkaline Phosphatase 68, Total Protein 5.3, Albumin 2.4 09/02/21 06:10: Glucometer 104 09/02/21 10:47: Glucometer 101 09/02/21 16:31: Glucometer 148 09/02/21 20:20: Glucometer 213 09/03/21 05:36: Glucometer 152 09/03/21 11:43: Glucometer 153 09/03/21 15:30: Glucometer 183 09/03/21 20:17: Glucometer 185 09/04/21 05:35: Glucometer 135 09/04/21 10:56: Glucometer 170 09/04/21 16:34: Glucometer 225 09/04/21 20:28: Glucometer 278 09/05/21 05:35: Glucometer 145 09/05/21 10:53: Glucometer 202 09/05/21 15:01: Glucometer 252 09/05/21 20:09: Glucometer 197 09/06/21 05:01: Glucometer 215 09/06/21 05:16: White Blood Count 8.2, Red Blood Count 3.45, Hemoglobin 10.2, Hematocrit 30, Mean Corpuscular Volume 87, Mean Corpuscular Hemoglobin 30, Mean Corpuscular Hemoglobin Concent 34, Red Cell Distribution Width 11.6, Platelet Count 208, Mean Platelet Volume 9.1, Immature Granulocyte % (Auto) 1, Neutrophils (%) (Auto) 60, Lymphocytes (%) (Auto) 26, Monocytes (%) (Auto) 7, Eosinophils (%) (Auto) 5, Basophils (%) (Auto) 1, Neutrophils # (Auto) 5.0, Lymphocytes # (Auto) 2.1, Monocytes # (Auto) 0.6, Eosinophils # (Auto) 0.4, Basophils # (Auto) 0.0, Immature Granulocyte # (Auto) 0.1, Sodium Level 133, Potassium Level 4.0, Chloride Level 100, Carbon Dioxide Level 25, Anion Gap 8, Blood Urea Nitrogen 19, Creatinine 1.12, Estimat Glomerular Filtration Rate 84, BUN/Creatinine Ratio 17, Glucose Level 213, Calcium Level 8.5, Corrected Calcium 9.6, Total Bilirubin 0.3, Aspartate Amino Transf (AST/SGOT) 16, Alanine Aminotransferase (ALT/SGPT) 12, Alkaline Phosphatase 92, Total Protein 6.1, Albumin 2.6 09/06/21 11:03: Glucometer 249 09/06/21 14:51: Glucometer 175 09/06/21 20:08: Glucometer 199 09/07/21 05:29: Glucometer 127 09/07/21 11:05: Glucometer 214 09/07/21 16:30: Glucometer 197 09/07/21 20:32: Glucometer 202 09/08/21 06:17: Glucometer 161 09/08/21 10:45: Glucometer 163 09/08/21 15:06: Glucometer 194 09/08/21 19:59: Glucometer 198 09/09/21 06:05: Glucometer 131 09/09/21 10:57: Glucometer 194 09/09/21 15:29: Glucometer 160 09/09/21 20:13: Glucometer 130 09/10/21 05:34: Glucometer 125 09/10/21 11:09: Glucometer 272 09/10/21 15:38: Glucometer 147 09/10/21 20:42: Glucometer 200 09/11/21 05:50: Glucometer 96 09/11/21 10:49: Glucometer 187 09/11/21 15:31: Glucometer 170 09/11/21 20:47: Glucometer 181 09/12/21 05:07: Glucometer 119 09/12/21 10:47: Glucometer 176 09/12/21 16:26: Glucometer 317 09/12/21 20:22: Glucometer 142 09/13/21 05:56: White Blood Count 9.1, Red Blood Count 3.69, Hemoglobin 10.6, Hematocrit 32, Mean Corpuscular Volume 86, Mean Corpuscular Hemoglobin 29, Mean Corpuscular Hemoglobin Concent 33, Red Cell Distribution Width 11.4, Platelet Count 222, Mean Platelet Volume 9.7, Immature Granulocyte % (Auto) 0, Neutrophils (%) (Auto) 59, Lymphocytes (%) (Auto) 28, Monocytes (%) (Auto) 6, Eosinophils (%) (Auto) 6, Basophils (%) (Auto) 0, Neutrophils # (Auto) 5.4, Lymphocytes # (Auto) 2.6, Monocytes # (Auto) 0.5, Eosinophils # (Auto) 0.6, Basophils # (Auto) 0.0, Immature Granulocyte # (Auto) 0.0, Sodium Level 137, Potassium Level 4.0, Chloride Level 105, Carbon Dioxide Level 23, Anion Gap 9, Blood Urea Nitrogen 29, Creatinine 1.11, Estimat Glomerular Filtration Rate 84, BUN/Creatinine Ratio 26, Glucose Level 120, Calcium Level 9.0, Corrected Calcium 9.9, Total Bilirubin 0.2, Aspartate Amino Transf (AST/SGOT) 25, Alanine Aminotransferase (ALT/SGPT) 33, Alkaline Phosphatase 84, Total Protein 6.6, Albumin 2.9 09/13/21 06:14: Glucometer 113 09/13/21 11:10: Glucometer 289 09/13/21 17:18: Glucometer 157 09/13/21 20:49: Glucometer 229 09/14/21 05:30: Glucometer 196 09/14/21 08:56: Glucometer 177 09/14/21 09:15: White Blood Count 17.1, Red Blood Count 3.81, Hemoglobin 11.3, Hematocrit 33, Mean Corpuscular Volume 85, Mean Corpuscular Hemoglobin 30, Mean Corpuscular Hemoglobin Concent 35, Red Cell Distribution Width 11.4, Platelet Count 175, Mean Platelet Volume 9.3, Immature Granulocyte % (Auto) 1, Neutrophils (%) (Auto) 88, Lymphocytes (%) (Auto) 4, Monocytes (%) (Auto) 5, Eosinophils (%) (Auto) 2, Basophils (%) (Auto) 0, Neutrophils # (Auto) 15.1, Lymphocytes # (Auto) 0.8, Monocytes # (Auto) 0.9, Eosinophils # (Auto) 0.3, Basophils # (Auto) 0.1, Immature Granulocyte # (Auto) 0.1, Neutrophils % (Manual) 83, Lymphocytes % (Manual) 5, Monocytes % (Manual) 3, Eosinophils % (Manual) 5, Band Neutrophils 1, Atypical Lymphocytes 2, Reactive Lymphocytes 1, Clumped Platelets SLIGHT, Polychromasia MODERATE, Basophilic Stippling SLIGHT, Microcytosis SLIGHT, Sodium Level 135, Potassium Level 4.5, Chloride Level 103, Carbon Dioxide Level 22, An ion Gap 10, Blood Urea Nitrogen 33, Creatinine 1.15, Estimat Glomerular Filtration Rate 81, BUN/Creatinine Ratio 29, Glucose Level 183, Lactic Acid Level 0.68, Calcium Level 8.7, Corrected Calcium 9.4, Total Bilirubin 0.3, Aspartate Amino Transf (AST/SGOT) 22, Alanine Aminotransferase (ALT/SGPT) 32, Alkaline Phosphatase 89, Total Protein 6.8, Albumin 3.1, Procalcitonin 0.13 09/14/21 09:20: Urine Color YELLOW, Urine Clarity SL CLOUDY, Urine pH 6.5, Urine Specific [place] 1.020, Urine Protein 2+, Urine Glucose (UA) TRACE, Urine Ketones NEGATIVE, Urine Nitrite NEGATIVE, Urine Bilirubin NEGATIVE, Urine Urobilinogen 1 .0, Urine Leukocyte Esterase 2+, Urine RBC (Auto) 2+, Urine RBC NONE, Urine WBC 2-5, Urine Squamous Epithelial Cells NONE, Urine Crystals NONE, Urine Bacteria FEW, Urine Casts NONE, Urine Mucus NEGATIVE, Urine Yeast FEW, Urine Culture Indicated YES 09/14/21 10:56: Glucometer 185 09/14/21 15:12: Glucometer 182 09/14/21 20:03: Glucometer 149 09/15/21 01:41: Glucometer 150 09/15/21 05:10: White Blood Count 15.9, Red Blood Count 3.13, Hemoglobin 9.2, Hematocrit 27, Mean Corpuscular Volume 87, Mean Corpuscular Hemoglobin 29, Mean Corpuscular H emoglobin Concent 34, Red Cell Distribution Width 11.6, Platelet Count 143, Mean Platelet Volume 9.8, Immature Granulocyte % (Auto) 2, Neutrophils (%) (Auto) 83, Lymphocytes (%) (Auto) 8, Monocytes (%) (Auto) 6, Eosinophils (%) (Auto) 1, Basophils (%) (Auto) 0, Neutrophils # (Auto) 13.2, Lymphocytes # (Auto) 1.3, Monocytes # (Auto) 1.0, Eosinophils # (Auto) 0.1, Basophils # (Auto) 0.0, Immature Granulocyte # (Auto) 0.3, Sodium Level 133, Potassium Level 4.1, Chloride Level 105, Carbon Dioxide Level 18, Anion Gap 10, Blood Urea Nitrogen 35, Creatinine 1.26, Estimat Glomerular Filtration Rate 73, BUN/Creatinine Ratio 28, Glucose Level 151, Calcium Level 8.2, Corrected Calcium 9.3, Total Bilirubin 0.6, Aspartate Amino Transf (AST/SGOT) 27, Alanine Aminotransferase (ALT/SGPT) 31, Alkaline Phosphatase 78, Total Protein 6.0, Albumin 2.6 09/15/21 11:00: Glucometer 193 09/15/21 15:13: Glucometer 254 09/15/21 20:10: Glucometer 192 09/16/21 05:24: Glucometer 135 09/16/21 06:10: White Blood Count 10.2, Red Blood Count 3.08, Hemoglobin 9.1, Hematocrit 27, Mean Corpuscular Volume 88, Mean Corpuscular Hemoglobin 30, Mean Corpuscular Hemoglobin Concent 34, Red Cell Distribution Width 11.9, Platelet Count 135, Mean Platelet Volume 9.4, Immature Granulocyte % (Auto) 0, Neutrophils (%) (Auto) 77, Lymphocytes (%) (Auto) 15, Monocytes (%) (Auto) 5, Eosinophils (%) (Auto) 3, Basophils (%) (Auto) 0, Neutrophils # (Auto) 7.8, Lymphocytes # (Auto) 1.5, Monocytes # (Auto) 0.5, Eosinophils # (Auto) 0.3, Basophils # (Auto) 0.0, Immature Granulocyte # (Auto) 0.0, Sodium Level 138, Potassium Level 3.9, Chloride Level 110, Carbon Dioxide Level 20, Anion Gap 8, Blood Urea Nitrogen 24, Creatinine 1.01, Estimat Glomerular Filtration Rate 95, BUN/Creatinine Ratio 24, Glucose Level 145, Calcium Level 8.3, Corrected Calcium 9.4, Total Bilirubin 0.2, Aspartate Amino Transf (AST/SGOT) 22, Alanine Aminotransferase (ALT/SGPT) 31, Alkaline Phosphatase 71, Total Protein 5.8, Albumin 2.6 09/16/21 11:00: Glucometer 171 09/16/21 16:41: Glucometer 178 09/16/21 20:26: Glucometer 132 09/17/21 05:24: Glucometer 106 09/17/21 11:21: Glucometer 165 09/17/21 14:59: Glucometer 226 09/17/21 16:07: Glucometer 209 09/17/21 20:15: Glucometer 197 09/18/21 06:07: Glucometer 135 09/18/21 11:03: Glucometer 134 09/18/21 15:24: Glucometer 164 09/18/21 20:11: Glucometer 234 09/19/21 05:54: Glucometer 136 09/19/21 10:50: Glucometer 220 09/19/21 15:26: Glucometer 204 09/19/21 20:11: Glucometer 194 09/20/21 05:37: Glucometer 121 09/20/21 06:00: White Blood Count 6.3, Red Blood Count 3.55, Hemoglobin 10.3, Hematocrit 31, Mean Corpuscular Volume 87, Mean Corpuscular Hemoglobin 29, Mean Corpuscular Hemoglobin Concent 33, Red Cell Distribution Width 11.7, Platelet Count 178, Mean Platelet Volume 9.5, Immature Granulocyte % (Auto) 1, Neutrophils (%) (Auto) 61, Lymphocytes (%) (Auto) 24, Monocytes (%) (Auto) 9, Eosinophils (%) (Auto) 5, Basophils (%) (Auto) 0, Neutrophils # (Auto) 3.9, Lymphocytes # (Auto) 1.5, Monocytes # (Auto) 0.6, Eosinophils # (Auto) 0.3, Basophils # (Auto) 0.0, Immature Granulocyte # (Auto) 0.1, Sodium Level 139, Potassium Level 3.4, Chlo ride Level 107, Carbon Dioxide Level 24, Anion Gap 8, Blood Urea Nitrogen 15, Creatinine 0.86, Estimat Glomerular Filtration Rate 110, BUN/Creatinine Ratio 17, Glucose Level 129, Calcium Level 8.9, Corrected Calcium 9.9, Total Bilirubin 0.2, Aspartate Amino Transf (AST/SGOT) 37, Alanine Aminotransferase (ALT/SGPT) 56, Alkaline Phosphatase 96, Total Protein 6.1, Albumin 2.7 09/20/21 11:19: Glucometer 191 09/20/21 15:35: Glucometer 159 09/20/21 20:27: Glucometer 152 09/21/21 05:32: Glucometer 142 09/21/21 11:02: Glucometer 146 09/21/21 16:20: Glucometer 220 09/21/21 20:51: Glucometer 191 09/22/21 05:49: Glucometer 120 09/22/21 11:05: Glucometer 168 09/22/21 15:22: Glucometer 188 09/22/21 20:30: Glucometer 138 09/23/21 05:17: Glucometer 165 09/23/21 10:07: Glucometer 138 09/23/21 15:41: Glucometer 171 09/23/21 20:13: Glucometer 154 09/24/21 05:30: Glucometer 122 09/24/21 10:57: Glucometer 217 09/24/21 16:11: Glucometer 258 09/24/21 19:59: Glucometer 244 09/25/21 05:04: Glucometer 204 09/25/21 10:52: Glucometer 177 09/25/21 15:09: Glucometer 192 09/25/21 21:09: Glucometer 149 09/26/21 06:29: Glucometer 165 09/26/21 10:47: Glucometer 164 09/26/21 15:28: Glucometer 112 09/26/21 20:22: Glucometer 123 09/27/21 05:30: Glucometer 113 09/27/21 06:36: White Blood Count 11.3, Red Blood Count 3.73, Hemoglobin 10.9, Hematocrit 33, Mean Corpuscular Volume 87, Mean Corpuscular Hemoglobin 29, Mean Corpuscular Hemoglobin Concent 34, Red Cell Distribution Width 11.9, Platelet Count 230, Mean Platelet Volume 9.0, Immature Granulocyte % (Auto) 1, Neutrophils (%) (Auto) 73, Lymphocytes (%) (Auto) 19, Monocytes (%) (Auto) 5, Eosinophils (%) (Auto) 2, Basophils (%) (Auto) 0, Neutrophils # (Auto) 8.3, Lymphocytes # (Auto) 2.2, Monocytes # (Auto) 0.5, Eosinophils # (Auto) 0.2, Basophils # (Auto) 0.1, Immature Granulocyte # (Auto) 0.1, Sodium Level 137, Potassium Level 3.9, Chloride Level 107, Carbon Dioxide Level 22, Anion Gap 8, Blood Urea Nitrogen 35, Creatinine 1.16, Estimat Glomerular Filtration Rate 80, BUN/Creatinine Ratio 30, Glucose Level 135, Calcium Level 8.9, Corrected Calcium 9.7, Total Bilirubin 0.2, Aspartate Amino Transf (AST/SGOT) 30, Alanine Aminotransferase (ALT/SGPT) 39, Alkaline Phosphatase 74, Total Protein 6.5, Albumin 3.0 09/27/21 11:04: Glucometer 142 09/27/21 11:28: Glucometer 118 09/27/21 15:26: Glucometer 123 09/27/21 20:05: Glucometer 156 09/28/21 05:26: Glucometer 126 09/28/21 10:57: Glucometer 104 Discharge Home Medications: Active Scripts Active Bethanechol Chloride 25 Mg Tablet 25 Mg PO BID WITH MEALS Hydrocortisone 453.6 Gm Cream..g. 0 Gm TOP BID Glyburide 2.5 Mg Tablet 1.25 Mg PO DAILY@0630 Pantoprazole Sodium 40 Mg Tablet.dr 40 Mg PO BID Sucralfate 1 Gm Tablet 1 Gm PO ACHS Amlodipine Besylate 5 Mg Tablet 5 Mg PO DAILY Metoprolol Tartrate 25 Mg Tablet 12.5 Mg PO BID Rosuvastatin Calcium 20 Mg Tablet 20 Mg PO HS Flomax (Tamsulosin HCl) 0.4 Mg Cap 0.4 Mg PO DAILY@1800 Reported Ibuprofen 200 Mg Tablet 400 Mg PO Q8H PRN TAKES 2 (200MG) TABLETS Acetaminophen 500 Mg Tablet 1,000 Mg PO Q8H PRN TAKES 2 (500MG) TABLETS Instructions to patient/family Please see electronic discharge instructions given to patient. Diagnosis/Problems Diagnosis/Problems (1) Cervical spine syndrome (2) Myoclonus (3) Type 2 diabetes mellitus without complication (4) Primary hypertension (5) Mixed hyperlipidemia (6) History of CVA with residual deficit (7) Right sided weakness (8) Cervical cord myelomalacia (9) Spinal cord contusion (10) Fall Status: Acute SHAYNE JAMES DO Sep 28, 2021 10:23
--- NOTE | 2021-09-28 11:05 | Therapy Team Discharge Summary ---
Therapy Discharge Summary Discharge Recommendations Date of Discharge Therapy D/C Recommendations: Bath Aide, Occupational Therapy Home Care, Homemaker Support, Scheduled Assistance, [facility] ([facility]) (Pt would benefit from skilled setting to further increase independence, but is limited by not having insurance ) Physical Therapy Roll Left to Right (QC): 6 Sit to Lying (QC): 6 Lying to Sitting/Side of Bed(Q: 6 Sit to Stand (QC): 4 Chair/Vdq-ha-Ftpfz Xfer(QC): 4 Toilet Transfer (QC): 3 Car Transfer (QC): 4 Does the Patient Walk: Yes Walk 10 feet (QC): 4 Walk 50 ft with 2 Turns(QC): 4 Walk 150 ft (QC): 4 Walking 10ft on uneven surface: 4 Gait Assistive Device: FWW Does the Pt Use a Wheelchair: Yes Wheel 50 ft with 2 turns (QC): 4 Wheel 150 ft (QC): 4 Type of Wheelchair: Manual #of Steps: 4 1 Step (curb) (QC): 2 4 Steps (QC): 2 12 Steps (QC): 88 Balance Sitting Static: Fair Balance Sitting Dynamic: Poor Balance-Standing Static: Poor Picking up an Object (QC): 4 (using puncher) Occupational Therapy Pt arrived to [facility] with cervical myelopathy. At time of eval, he was dependent for toileting, footwear, lower body dressing, bathing, max a for upper body dressing, min a for oral care, and max a for eating. During his rehab stay, OT focused on balance, strength, endurance, safety, coordination, FM control, UE ROM, compensatory strategies, and adaptive techniques in order to improve indep and safety with adls and functional mobility. Pt made good progress but did not meet all of his snf goals secondary to slow recovery and reduced coordination in L hand. Pt is now set up with eating, indep with oral care, min a for bathing, upper body dressing, and footwear, min-mod a for lower body dressing, and toileting, and cga for toilet transfer. Pt will be discharging from this facility today and will be discharged from OT at this time. Decreased Activ Tolerance, Decreased Safety Aware, Decreased UE Strength, Impaired Coordination, Impaired Funct Balance, Impaired I ADL's, Impaired Self- Care Skills, Restricted Funct UE ROM Eating (QC): 5 (with bilateral tasks only such as cutting) Oral Hygiene (QC): 6 Shower/Bathe Self (QC): 3 (min) Upper Body Dressing (QC): 3 (min) Lower Body Dressing (QC): 3 On/Off Footwear (QC): 3 Toileting Hygiene (QC): 3 PT Skilled Nursing Goals Solution Strategist Goals PT Skilled Nursing Goals Time Frame: Sep 22, 2021 Roll Left to Right (QC): 4 Sit to Lying (QC): 4 Lying-Sitting on Side/Bed(QC): 4 Sit to Stand (QC): 3 Chair/Kre-tj-Hsjcm Xfer(QC): 3 Car Transfer (QC): 3 Does the Patient Walk: No and Walking Goal NOT indicated Walk 10 feet (QC): 88 Walk 10ft-Uneven Surface(QC): 88 Walk 50ft with 2 Turns (QC): 88 Walk 150 ft (QC): 88 Does the Pt use WC or Scooter?: Yes Wheel 50 feet with 2 turns (QC: 3 1 Step (curb) (QC): 88 4 Steps (QC): 88 12 Steps (QC): 88 Picking up an Object (QC): 3 OT Skilled Nursing Goals Skilled Nursing Goals Time Frame: Oct 01, 2021 Eating (QC): 5 (met) Oral Hygiene (QC): 6 (met) Shower/Bathe Self (QC): 4 (not met) Upper Body Dressing (QC): 5 (not met, min) Lower Body Dressing (QC): 4 (not met, min) On/Off Footwear (QC): 4 (not met, min) Toileting Hygiene (QC): 4 (not met, mod) Toilet/Commode Transfer (QC): 3 (met) Additional Goals: 1-Demonstrate ADL Tasks, 2-Verbalize Understanding, 3-ImproveStrength/Sara 1=Demonstrate adherence to instructed precautions during ADL tasks. 2=Patient will verbalize/demonstrate understanding of assistive devices/modifications for ADL. 3=Patient will improve strength/tolerance for activity to enable patient to perform ADL's. Nisreen Lowe OT Sep 28, 2021 11:05
--- NOTE | 2021-09-28 13:11 | Therapy Team Discharge Summary ---
Therapy Discharge Summary Discharge Recommendations Date of Discharge Therapy D/C Recommendations: Bath Aide, Occupational Therapy Home Care, Homemaker Support, Scheduled Assistance, [facility] ([facility]) (Pt would benefit from skilled setting to further increase independence, but is limited by not having insurance ) Physical Therapy Patient came to rehab with cervical myelopathy. Upon evaluation patient performs rolling with min assist, supine <-> sit mod assist, sit <-> stand and transfers dependent using a sit to stand machine. Patient has been performing bed mobility and transfer training, balance and endurance training, functional strengthening, stair training, gait training, and education. Patient has made fair progress and has met all of his gambling supervisor goals. Now, patient performs ro lling and supine <-> sit with independence, sit <-> stand and transfers CGA, car transfer CGA, ambulates 150' with a rolling walker with CGA (including 50' with at least 2 turns of 90 degrees and 10' over an uneven surface), can go up and down 4 steps using 1 handrail with max assist, and can propel a manual WC 150' with SBA. Patient is being discharged from this facility today and will be discharged from PT at this time. Roll Left to Right (QC): 6 Sit to Lying (QC): 6 Lying to Sitting/Side of Bed(Q: 6 Sit to Stand (QC): 4 Chair/Fre-nl-Jdqdt Xfer(QC): 4 Toilet Transfer (QC): 3 Car Transfer (QC): 4 Does the Patient Walk: Yes Walk 10 feet (QC): 4 Walk 50 ft with 2 Turns(QC): 4 Walk 150 ft (QC): 4 Walking 10ft on uneven surface: 4 Gait Assistive Device: FWW Does the Pt Use a Wheelchair: Yes Wheel 50 ft with 2 turns (QC): 4 Wheel 150 ft (QC): 4 Type of Wheelchair: Manual #of Steps: 4 1 Step (curb) (QC): 2 4 Steps (QC): 2 12 Steps (QC): 88 Balance Sitting Static: Fair Balance Sitting Dynamic: Poor Balance-Standing Static: Poor Picking up an Object (QC): 4 (using central office equipment installer) Occupational Therapy Decreased Activ Tolerance, Decreased Safety Aware, Decreased UE Strength, Impaired Coordination, Impaired Funct Balance, Impaired I ADL's, Impaired Self- Care Skills, Restricted Funct UE ROM Eating (QC): 5 (with bilateral tasks only such as cutting) Oral Hygiene (QC): 6 Shower/Bathe Self (QC): 3 (min) Upper Body Dressing (QC): 3 (min) Lower Body Dressing (QC): 3 On/Off Footwear (QC): 3 Toileting Hygiene (QC): 3 PT Sleeve Setter Goals Sleeve Setter Goals PT Nursing Home Goals Time Frame: Sep 22, 2021 Roll Left to Right (QC): 4 Sit to Lying (QC): 4 Lying-Sitting on Side/Bed(QC): 4 Sit to Stand (QC): 3 Chair/Hqi-dq-Eqzeh Xfer(QC): 3 Car Transfer (QC): 3 Does the Patient Walk: No and Walking Goal NOT indicated Walk 10 feet (QC): 88 Walk 10ft-Uneven Surface(QC): 88 Walk 50ft with 2 Turns (QC): 88 Walk 150 ft (QC): 88 Does the Pt use WC or Scooter?: Yes Wheel 50 feet with 2 turns (QC: 3 1 Step (curb) (QC): 88 4 Steps (QC): 88 12 Steps (QC): 88 Picking up an Object (QC): 3 OT Nursing Home Goals Nursing Home Goals Time Frame: Oct 01, 2021 Eating (QC): 5 (met) Oral Hygiene (QC): 6 (met) Shower/Bathe Self (QC): 4 (not met) Upper Body Dressing (QC): 5 (not met, min) Lower Body Dressing (QC): 4 (not met, min) On/Off Footwear (QC): 4 (not met, min) Toileting Hygiene (QC): 4 (not met, mod) Toilet/Commode Transfer (QC): 3 (met) Additional Goals: 1-Demonstrate ADL Tasks, 2-Verbalize Understanding, 3- ImproveStrength/Sara 1=Demonstrate adherence to instructed precautions during ADL tasks. 2=Patient will verbalize/demonstrate understanding of assistive devices/modifications for ADL. 3=Patient will improve strength/tolerance for activity to enable patient to perform ADL's. VERONICA MONIQUE PT Sep 28, 2021 13:11
[2021-09-28 13:12] VITALS: BP 117/71
== END 2021-09-28 13:21 | disposition home health service (06) | DRG 91 ==
PROVIDERS: ADMIT Internal Medicine; ATTEND Internal Medicine
DX: G95.89 Other specified diseases of spinal cord (principal); A41.52 Sepsis due to Pseudomonas; I69.351 Hemiplegia and hemiparesis following cerebral infarction affecting right dominant side; E46 Unspecified protein-calorie malnutrition; N39.0 Urinary tract infection, site not specified; G25.3 Myoclonus; M48.061 Spinal stenosis, lumbar region without neurogenic claudication; E11.65 Type 2 diabetes mellitus with hyperglycemia; E11.649 Type 2 diabetes mellitus with hypoglycemia without coma; L89.152 Pressure ulcer of sacral region, stage 2; L89.312 Pressure ulcer of right buttock, stage 2; R15.9 Full incontinence of feces; R32 Unspecified urinary incontinence; E78.00 Pure hypercholesterolemia, unspecified; E78.2 Mixed hyperlipidemia; I10 Essential (primary) hypertension; R33.9 Retention of urine, unspecified; Z79.4 Long term (current) use of insulin; Z91.19 Patient's noncompliance with other medical treatment and regimen; Z68.25 Body mass index [BMI] 25.0-25.9, adult
CPT/HCPCS: 36415; 71045; 80053; 81000; 82947; 83605; 84145; 85007; 85025; 85027; 87040; 87077; 87088; 87186